=== PATIENT | female | born 1960 | race Caucasian/White ===

== ENCOUNTER 2024-05-27 11:48 | Emergency (ER) | payer MEDICARE, SELFPAY ==
[2024-05-27 11:49] VITALS: BP 130/83; PULSE 80; RESP 16; TEMP 36.6; O2SAT 95; BMI 29.3
[2024-05-27 13:05] LABS: Absolute Lymphocyte Count 2.31 X10^3/uL (0.83-4.51); Absolute Neutrophil Count 6.8 X10^3/uL (2.0-7.7); Basophil# 0.02 X10^3/uL; Basophil% 0.2 % (0-1); Eosinophil# 0.01 X10^3/uL; Eosinophils% 0.1 % (0-5); Hematocrit 48.1 % (37-47); Hemoglobin 17.5 g/dL (12.0-15.0); Lymphocyte # 2.31 X10^3/ul (0.83-4.51); Lymphocyte % 24.2 % (19-41); Mean Corp Hgb Conc 36.4 g/dL (32-36); Mean Corpuscular Hgb 32.1 pg (27.0-32.0); Mean Corpuscular Volume 88.3 fL (81-99); Monocyte# 0.39 X10^3/uL; Monocyte% 4.1 % (0-10); NRBC Flagged by Analyzer 0 % (0-5); Neutrophil # 6.79 X10^3/uL (2.7-7.7); Platelet Count 274 K/mm3 (150-450); RBC Distribution Width CV 13.9 % (11.6-14.6); RBC Distribution Width SD 44.4 fl (35.1-43.9); Red Blood Count 5.45 M/mm3 (4.2-5.4); White Blood Count 9.6 K/mm3 (4.4-11.0)
[2024-05-27 13:16] LABS: Color, Urine Yellow (Yellow); Glucose, Dipstick Normal (Normal); Ketone-Dipstick 50 mg/dl (Negative); Leukocyte Esterase-Dipstick 100 /ul (Negative); Nitrite-Dipstick Negative (Negative); Occult Blood-Urine 50 /ul (Negative); Protein-Dipstick 30 mg/dl (Negative); Urine Clarity Cloudy (Clear); Urine Urobilinogen 1 mg/dl (Normal)
--- NOTE | 2024-05-27 13:22 | EX.ED.DYSGE1 ---
HPI History of Present Illness Chief Complaint: Nausea/Vomiting Informant: patient Narrative Narrative: Patient is 63-year-old female with a history of hypertension, stroke of brain aneurysm presenting with nausea vomiting and diarrhea. She came down with GI symptoms 3 days ago (Monday night into Monday morning). She had vomiting and diarrhea. She also notes that time she was having frequent urination. She continued have vomiting throughout the weekend and continue to vomit this morning. Has not been able to eat much but has been able to keep down water. Denies any abdominal pain except for discomfort associate with vomiting. Denies any dysuria. Notes her urine has been darker than normal. On Monday night when it for started she was having sweats and cold chills and thought she had a fever. Denies any URI symptoms. Has not been around her grandchildren but there has been a GI bug going around there. I was concerned about dehydration and came in. Denies any lightheadedness. PFSH PFS Medical History Back problem Asthma Arthritis Home Medications ?Medication ?Instructions ?Recorded ?Last Taken ?Type amlodipine 10 mg tablet 10 mg PO QDAY 05/03/24 Unknown History estradiol 0.01% (0.1 mg/gram) vaginal 05/03/24 Unknown History vaginal cream fluvoxamine 25 mg tablet 25 mg PO QHS 05/03/24 Unknown History lisinopril 40 mg tablet 40 mg PO QHS 05/03/24 Unknown History nystatin 100,000 unit/gram topical topical BID 05/03/24 Unknown History cream metoclopramide HCl 10 mg tablet 10 mg PO Q6H PRN nausea and 05/27/24 Unknown Rx (Reglan) vomiting #10 tabs nitrofurantoin 100 mg PO Q12 #10 CAPSULES 05/27/24 Unknown Rx monohydrate/macrocrystals 100 mg capsule Allergy/AdvReac Type Severity Reaction Status Date / Time latex Allergy Mild Itching Verified 05/27/24 11:52 Social History Smoking Status: Unknown if ever smoked ROS ROS ED Constitutional Constitutional ED: Reports chills, fever(s) and sweats Cardiovascular Cardiovascular: Denies chest pain Respiratory/Chest Respiratory/Chest: Denies cough or dyspnea Gastrointestinal Gastrointestinal: Reports abdominal pain, diarrhea, nausea and vomiting; Denies melena Genitourinary Genitourinary ED: Reports dysuria and other Details: Dark urine, decreased urination ; Denies urinary frequency Musculoskeletal Musculoskeletal: Denies arthralgias or myalgias Integumentary Denies rash Neurologic Neurologic: Reports weakness Hematologic/Lymphatic Hematologic/Lymphatic: Denies easy bleeding or easy bruising EXAM Physical Exam Const Vital Signs: 05/27/24 11:49 05/27/24 13:44 05/27/24 14:57 Temperature 97.8 F Temperature Source Temporal Pulse Rate 80 75 78 Respiratory Rate 16 19 H 18 Blood Pressure 130/83 H 137/82 H 132/63 H Blood Pressure Mean 98 100 86 Pulse Ox 95 99 98 Oxygen Delivery Method Room Air Room Air Room Air 05/27/24 16:59 Temperature Temperature Source Pulse Rate 77 Respiratory Rate 18 Blood Pressure 135/78 H Blood Pressure Mean 97 Pulse Ox 98 Oxygen Delivery Method Room Air Positive well nourished and well developed General Appearance ED: well developed and NAD HEENT Reports moist mucous membranes Eyes PERRL Neck supple Chest Wall inspection of chest normal and palpation of chest normal Resp normal respiratory effort and clear to auscultation bilaterally Cardio regular rate, regular rhythm and no murmurs GI normal to inspection, nondistended, normoactive bowel sounds, non-tender and non-distended Auscultation: normoactive bowel sounds Extremity normal to inspection General Extremety ED: Negative for edema General Extremity: Negative for edema Neuro oriented x3 Sensorium / Orientation: alert Motor Exam: Negative for general weakness Psych mental status grossly normal Skin no rashes or lesions noted and no wounds General Skin Exam: Negative for jaundice MDM MDM MDM Narrative Medical decision making narrative: Patient evaluated for 3 days of vomiting. Initially also had subjective fevers, chills and diarrhea. Has Zofran at home with no relief. Differential includes viral syndrome, gastroenteritis, dehydration, electrolyte abnormality, JANIE and urinary tract infection. Patient currently does not have any abdominal pain is benign physical exam I do not think she requires emergent GI imaging. Patient has some improvement with IV Zofran and IV fluids. Lab work shows mild hemoconcentration with hemoglobin 17.5. Normal white blood cell count. Normal platelets. CMP is consistent with some dehydration with a bicarb of 16.7 and mildly elevated anion gap. Is given a second liter of IV fluids. Urinalysis does show 50 ketones, 10-25 white blood cells with some contamination as well as 4+ bacteria. On further discussion patient does report she has had some mild dysuria. Will send for culture and treat with antibiotics (Macrobid). Patient given IV Reglan. Given p.o. challenge the emergency room she does well with. Will be discharged home with a prescription for Reglan as well as PPI therapy given her acute GI illness. Counseled on pushing fluids. Given return precautions. Discharged home in stable condition. Lab Data Attestation: I reviewed the patient's lab results. Labs: Laboratory Results - last 24 hr 05/27/24 05/27/24 12:57 13:07 WBC 9.6 RBC 5.45 H Hgb 17.5 H Hct 48.1 H MCV 88.3 MCH 32.1 H MCHC 36.4 H RDW Std Deviation 44.4 H RDW Coeff of Herminio 13.9 Plt Count 274 MPV 11.0 Immature Gran % (Auto) 0.400 Neut % (Auto) 71.0 H Lymph % (Auto) 24.2 [place] % (Auto) 4.1 Eos % (Auto) 0.1 Baso % (Auto) 0.2 Absolute Neuts (auto) 6.8 Absolute Lymphs (auto) 2.31 Nucleated RBC % 0 Sodium 136 Potassium 3.6 Chloride 101 Carbon Dioxide 16.7 L Anion Gap 18 H BUN 24 H Creatinine 0.81 Estim Creat Clear Calc 73.51 Est GFR (MDRD) Non-Af 82 BUN/Creatinine Ratio 29.2 H Glucose 127 H Calcium 10.7 Total Bilirubin 1.41 H AST 25 ALT 35 Alkaline Phosphatase 75 Total Protein 8.4 Albumin 5.1 H Globulin 3.4 Albumin/Globulin Ratio 1.5 Lipase 35 Urine Color Yellow Urine Clarity Cloudy Urine pH 6.0 Ur Specific [place] 1.020 Urine Protein 30 H Urine Glucose (UA) Normal Urine Ketones 50 H Urine Occult Blood 50 H Urine Nitrite Negative Urine Bilirubin 1 H Urine Urobilinogen 1 H Ur Leukocyte Esterase 100 H Urine RBC 5-10 SEEN Urine WBC 10-25 SEEN Ur Squamous Epith Cells 10-25 SEEN Uric Acid Crystals 2+ Amorphous Sediment 1+ URATE Urine Bacteria 4+ Urine Mucus 1+ Discharge Plan Triage Chief Complaint: Nausea/Vomiting ED Provider: Kallie Ghosh Dx/Rx/DC Orders Clinical Impression: Acute dehydration, Nausea & vomiting, UTI (urinary tract infection) Instructions: Urinary Tract Infections in Women, Dehydration, ED Vomit Diarrhea Nons[place] Adult Prescriptions: New metoclopramide HCl [Reglan] 10 mg tablet 10 mg PO Q6H PRN (Reason: nausea and vomiting) Qty: 10 0RF nitrofurantoin monohyd/m-cryst 100 mg capsule 100 mg PO Q12 Qty: 10 0RF No Action estradiol 0.01 % (0.1 mg/gram) cream vaginal fluvoxamine 25 mg tablet 25 mg PO QHS nystatin 100,000 unit/gram cream topical BID lisinopril 40 mg tablet 40 mg PO QHS amlodipine 10 mg tablet 10 mg PO QDAY Primary Care Provider: January Roblero NP Referrals: January Roblero NP, TELECINE OPERATOR-C [Primary Care Provider] - Activity Restrictions/Additional Instructions: Continue to push fluids and small frequent sips. I would recommend taking an [id number] antacid such as Pepcid or Nexium once to twice a day until your stomach is settled and is feeling better. Your blood work showed signs of dehydration and you are given 2 L of IV fluid in the emergency room. Your kidney function was normal and no significant electrolyte abnormalities. Your urinalysis was concerning for urinary tract infection. We did send off for culture and started on antibiotics. If your culture requires that we change antibiotics we will contact you in about 48 hours. Print Language: German Disposition Disposition: Home, Self Care
[2024-05-27 13:36] LABS: Urine Bilirubin Dipstick 1 mg/dL (Negative)
[2024-05-27] MEDS: 0.9% Normal Saline (1000mL) 1,000 ML 999 ML IV ×2 (13:43→15:26)
[2024-05-27] MEDS: Ondansetron 4 MG/2 ML Vial IV (13:43)
[2024-05-27 13:44] VITALS: BP 137/82; PULSE 75; RESP 19; O2SAT 99
[2024-05-27 13:55] LABS: White Blood Cells 10-25 SEEN /hpf (0-5)
[2024-05-27 13:56] LABS: Red Blood Cells-Urine 5-10 SEEN /hpf (0-5)
[2024-05-27 13:57] LABS: Bacteria 4+ /hpf (None Seen); Squamous Epithelial Cells - UA 10-25 SEEN /hpf (5-10)
[2024-05-27 13:59] LABS: Uric Acid Crystals Ur 2+ /hpf (<or=1+)
[2024-05-27 14:01] LABS: Amorphous Sediment 1+ URATE; Mucous, Urine 1+ /hpf (<or=2+)
[2024-05-27 14:03] LABS: ALB/GLOB Ratio 1.5 RATIO (0.9-2.4); AST(SGOT) 25 U/L (<=31); Alanine Aminotransfer ALT/SGPT 35 U/L (<=34); Albumin, Serum 5.1 g/dL (3.4-4.8); Alkaline Phosphatase 75 U/L (35-104); Anion Gap 18 (5-15); BUN 24 mg/dL (4-19); BUN/Creat Ratio 29.2 RATIO (10-20); Calcium,Total 10.7 mg/dL (7.6-11.0); Carbon Dioxide 16.7 mmol/L (21.0-32.0); Chloride 101 mmol/L (98-108); Creatinine, Serum 0.81 mg/dL (0.70-1.20); EST Glomerular Filtration Rate 82 (>60); Estimated Creatinine Clearance 73.51 ml/min (50-250); Globulin 3.4 g/dL (2.2-4.2); Glucose 127 mg/dL (70-99); Lipase 35 U/L (13-75); Potassium 3.6 mmol/L (3.3-5.1); Protein, Total 8.4 g/dL (5.9-8.4); Sodium Level 136 mmol/L (133-145); Total Bilirubin 1.41 mg/dL (0.00-1.30)
[2024-05-27 14:57] VITALS: BP 132/63; PULSE 78; RESP 18; O2SAT 98
[2024-05-27] MEDS: Metoclopramide 10 MG/2 ML Vial 5 MG IV (15:26)
[2024-05-27 16:59] VITALS: BP 135/78; PULSE 77; RESP 18; O2SAT 98
[2024-05-27 17:07] VITALS: BP 140/80; PULSE 78; RESP 18; TEMP 36.8; O2SAT 98
== END 2024-05-27 17:43 | disposition home or self-care (01) ==
PROVIDERS: Emergency Provider Emergency Medicine; PCP Nurse Practitioner Family; Visit Provider Emergency Medicine
DX: E86.0 Dehydration (principal); N39.0 Urinary tract infection, site not specified; R11.2 Nausea with vomiting, unspecified; R19.7 Diarrhea, unspecified; I10 Essential (primary) hypertension; Z86.73 Personal history of transient ischemic attack (TIA), and cerebral infarction without residual deficits; Z79.899 Other long term (current) drug therapy
CPT/HCPCS: 80053; 81001; 83690; 85025; 87086; 87088; 96361; 96374; 96375; 99283; A4216; J2405

== ENCOUNTER 2025-03-06 18:16 | Emergency (ER) | payer MEDICARE, SELFPAY ==
[2025-03-06 18:17] VITALS: BP 121/69; PULSE 85; RESP 18; TEMP 35.9; O2SAT 96
--- NOTE | 2025-03-06 18:34 | RAD_ITS ---
PROCEDURE: HIP, UNI W/ PELVIS 2-3 VIEWS 03/06/2025 REASON FOR EXAM: ATRAUMATIC RIGHT HIP PAIN TECHNIQUE: Procedure Code: RADHP Modality: DX Procedure: HIP, UNI W/ PELVIS 2-3 VIEWS Laterality: Right COMPARISON: None FINDINGS: Bones: No acute fracture. Joints: Normal alignment. Mild degenerative changes. Soft tissues: Soft tissues are unremarkable. RAD/HIP, UNI W/ Pelvis 2-3 Views IMPRESSION: No acute osseous abnormality. Mild osteoarthritis in the right hip. Reading Location: [facility]
--- NOTE | 2025-03-06 18:40 | ED.VIS.LOWEX ---
HPI History of Present Illness HPI Narrative: 64-year-old female history of hypertension, craniotomy for an aneurysm and prior stroke. Complaining of atraumatic right hip pain that began yesterday. Denies any fall or trauma. No fever or chills. No redness. She has never had a surgery to this hip before. It is more painful to walk on. Chief Complaint: Lower Extremity Injury Informant: patient Occured/Mechanism Mechanism/Context: No injury and No blunt trauma Onset/Context/Timing Onset: Today and Yesterday Context: Gradual Onset Timing: Continuous Quality of Pain: Sharp Current Severity: Moderate Maximum Severity: Moderate Associated Symptoms Associated Symptoms: Negative for Parasthesia, Weakness or Loss of Funtion Narrative Narrative: 64-year-old female complains of atraumatic right hip pain since yesterday. No fever or redness. No chills. No fall or trauma. No prior surgery. Prior similar symptoms: No Recent Illness/Hospitalization: No PFSH PFSH Medical History Back problem Asthma Arthritis Home Medications ?Medication ?Instructions ?Recorded ?Last Taken ?Type amlodipine 10 mg tablet 10 mg PO QDAY 05/03/24 Unknown History estradiol 0.01% (0.1 mg/gram) vaginal 05/03/24 Unknown History vaginal cream fluvoxamine 25 mg tablet 25 mg PO QHS 05/03/24 Unknown History lisinopril 40 mg tablet 40 mg PO QHS 05/03/24 Unknown History nystatin 100,000 unit/gram topical topical BID 05/03/24 Unknown History cream metoclopramide HCl 10 mg tablet 10 mg PO Q6H PRN nausea and 05/27/24 Unknown Rx (Reglan) vomiting #10 tabs nitrofurantoin 100 mg PO Q12 #10 CAPSULES 05/27/24 Unknown Rx monohydrate/macrocrystals 100 mg capsule oxycodone-acetaminophen 5 mg-325 1 tab PO Q6H PRN pain 3 days #10 03/06/25 Unknown Rx mg tablet (Percocet) tabs prednisone 20 mg tablet 40 mg (2 x 20 mg) PO DAILY #14 tabs 03/06/25 Unknown Rx Allergy/AdvReac Type Severity Reaction Status Date / Time latex Allergy Mild Itching Verified 03/06/25 18:16 Social History Smoking Status: Unknown if ever smoked ROS ROS ED ROS Narrative Denies recent illness. Constitutional Constitutional ED: Denies chills or fever(s) Eyes Eyes: Denies blurry vision ENT ENT ED: Denies ear pain Cardiovascular Cardiovascular: Denies chest pain Respiratory/Chest Respiratory/Chest: Denies cough or dyspnea Gastrointestinal Gastrointestinal: Denies abdominal pain Genitourinary Genitourinary ED: Denies dysuria or hematuria Musculoskeletal Musculoskeletal: Denies arthralgias, back pain, myalgias or neck pain Integumentary Denies abscess or Abrasions Neurologic Neurologic: Denies headache(s) Psychiatric Psychiatric: Denies anxiety Endocrine Endocrinology: Denies polydipsia Hematologic/Lymphatic Hematologic/Lymphatic: Denies easy bleeding, easy bruising or lymphadenopathy Allergic/Immunologic Allergic/Immunologic ED: Denies mouth swelling, tongue swelling or urticaria EXAM Physical Exam Narrative Exam Narrative: Well-appearing 64-year-old female. Sitting upright in bed. Vital signs are stable and afebrile. She does not look septic or toxic. She is in no acute distress. H EENT exam pupils round react light. Moist mucous membranes. Neck nontender no lymphadenopathy no meningismus. Lungs clear to auscultation bilaterally. Heart regular rhythm no murmur. Chest wall and ribs are nontender. Abdomen soft nontender. No peritoneal signs. Moving all 4 extremities. No edema. Right hip tender to palpation anteriorly. No redness. No warmth. No swelling. No signs of trauma. She is able to do flexion extension. She will flex extend her right knee and right ankle. Dorsi plantarflexion intact. There is no edema or cords in either lower extremity. There is no signs of a septic joint. Back is nontender right SI joints nontender. Neurologically she is awake alert. Answering questions following commands. Const Vital Signs: 03/06/25 18:17 Temperature 96.6 F L Temperature Source Temporal Pulse Rate 85 Respiratory Rate 18 Blood Pressure 121/69 H Blood Pressure Mean 86 Pulse Ox 96 Oxygen Delivery Method Room Air MDM MDM MDM Narrative Medical decision making narrative: 64-year-old female complaining of atraumatic right hip pain. Clinically does not look like a septic joint. X-ray will be obtained this may be from arthritis versus other etiologies. There is noes current signs of infection. Skin appears normal on exam. Repeat exam around 7:25 PM. No change. Again there is no significant signs of infection of her right hip. There is no swelling. There is inguinal Renae in both groins. But no signs of septic joint. She and I went over x-rays consistent with joint space narrowing. Some arthritis. There is no fracture or dislocation. There is no significant signs of significant fluid in the joint. She can be discharged to home on Percocet for pain. Prednisone. And outpatient follow-up. She knows if she develops redness or fever to return. She is comfortable to plan History & Record Review Discussion w/independent historian: Patient Additional record(s) reviewed:: Prior outpatient record, Prior ED visit and Prior labs Discharge Plan Triage Chief Complaint: Lower Extremity Injury ED Provider: Gal Siddiqi Dx/Rx/DC Orders Clinical Impression: Acute hip pain, Osteoarthritis Instructions: Osteoarthritis (OA) Prescriptions: New oxycodone-acetaminophen [Percocet] 5-325 mg tablet 1 tab PO Q6H PRN (Reason: pain) 3 Days Qty: 10 0RF prednisone 20 mg tablet 40 mg PO DAILY Qty: 14 0RF No Action estradiol 0.01 % (0.1 mg/gram) cream vaginal fluvoxamine 25 mg tablet 25 mg PO QHS nystatin 100,000 unit/gram cream topical BID lisinopril 40 mg tablet 40 mg PO QHS amlodipine 10 mg tablet 10 mg PO QDAY metoclopramide HCl [Reglan] 10 mg tablet 10 mg PO Q6H PRN (Reason: nausea and vomiting) Qty: 10 0RF nitrofurantoin monohyd/m-cryst 100 mg capsule 100 mg PO Q12 Qty: 10 0RF Primary Care Provider: January Roblero NP Referrals: Luke Chan DO [Med Staff - Active Staff, Orthopedics] - As soon as possible January Roblero NP, CRYPTOGRAPHY TEACHER-C [Primary Care Provider, Family Practice] - 3-5 Days Activity Restrictions/Additional Instructions: Ice to your hip. Percocet for pain. Plenty of fluids. Stool softener as needed. Fruits and vegetables help prevent constipation. Fiber. If you develop a fever or the hip gets red or swollen with the pains getting worse return to the emergency department. Right now it looks like the pain is being caused by arthritis. Prednisone daily to help decrease the inflammation. 40 mg a day. Start tomorrow. Follow-up with the orthopedic surgeon for further evaluation of your hip. As Dr. Blair Chan. Print Language: Latvian Disposition Disposition: Home, Self Care
--- OUTSIDE RECORDS SUMMARY | 2025-03-06 18:47 | XMS RPT_ITS | CCD ---
Author Organization [facility] Care Team Providers Care Marketing Intern Name Role Phone Michael CHANEY, Yessenia Primary Care Provider Lukas CHANEY, Amairani Unavailable Michael CHANEY, Yessenia Unavailable Jolynn BECERRA, Luz Marina Unavailable Adilene Lino MD Unavailable Go Wolf RN Unavailable Michael CHANEY, Yessenia Primary Care Provider Amairani Quintero MD Unavailable Michael CHANEY, Yessenia Unavailable Luz Marina Neil PA-C Unavailable Adilene Lino MD Unavailable Michael CHANEY, Yessenia Primary Care Provider Michael CHANEY, Yessenia Unavailable Michael CHANEY, Yessenia Primary Care Provider Amairani Quintero MD Unavailable Michael CHANEY, Yessenia Unavailable Jolynn BEECRRA, Luz Marina Unavailable Adilene Lino MD Unavailable PROVIDER, UNKNOWN Referring Unavailable DISTBRENTON, YESSENIA Primary Care Unavailable DISTEL, YESSENIA Primary Care Unavailable PATRICA LENNON Referring Unavailab le PROVIDER, UNKNOWN Referring Unavailable DISTEL, YESSENIA Primary Care Unavailable ANIYAH IRIZARRY Attending Unavailabl e DISTEL, YESSNEIA Primary Care Unavailable ANIYAH IRIZARRY Attending Unavailabl e DISTEL, YESSENIA Primary Care Unavailable ANIYAH IRIZARRY Attending Unavailabl e DISTEL, YESSENIA Primary Care Unavailable DISTEL, YESSENIA Primary Care Unavailable PATRICA LENNON Referring Unavailab ANIYAH Green Attending Unavailabl e DISTEL, YESSENIA Primary Care Unavailable GERMÁN NERISSA Referring Unavailable DISTEL, YESSENIA Primary Care Unavailable DISTEL, YESSENIA Primary Care Unavailable DISTEL, YESSENIA Referring Unavailable DEEPA LEES Attending Unavailabl e DISTEL, YESSENIA Primary Care Unavailable DISTEL, YESSENIA Referring Unavailable Distbrenton CHANEY, Yessenia Primary Care Provider [phone] Martir BARLOWC, Luz Marina Lee Unavailable [phone] Osbaldo PAINT BOOTH OPERATOR, Yohan K Primary Care Provider MARYAM SALMERON Attending Unavailable OSBALDO, YOHAN K Primary Care Unavailable Osbaldo AMBULANCE OPERATIONS SUPERVISOR, Yohan Primary Care Unavailable Kallie Ghosh Attending Unavailable Osbaldo AMBULANCE OPERATIONS SUPERVISOR, Yohan Referring Unavailable Osbaldo AMBULANCE OPERATIONS SUPERVISOR, Yohan Primary Care Unavailable José Miguel Bee Attending Unavailable Osbaldo AMBULANCE OPERATIONS SUPERVISOR-C, Yohan Primary Care Provider [phone] Osbaldo AMBULANCE OPERATIONS SUPERVISOR-C, Yohan Referring Provider Dr. José Miguel Bee MD Attending Provider [phone] Dr. Kallie Ghosh DO Emergency Provider ЮЛИЯ ROBLEROA K Primary Care Unavailable DISTEL, YESSENIA Referring Unavailable DISTEL, YESSENIA Primary Care Unavailable DISTEL, YESSENIA Attending Unavailable DISTEL, YESSENIA Primary Care Unavailable OSBALDO, YOHAN Attending Unavailable OSBALDO, YOHAN Consulting Unavailable OSBALDO, YOHAN Primary Care Unavailable OSBALDO, YOHAN Admitting Unavailable PROVIDER, UNKNOWN Consulting Unavailable OSBALDO, YOHAN Primary Care Unavailable OSBALDO, YOHAN Admitting Unavailable OSBALDO, YOHAN Attending Unavailable OSBALDO, YOHAN Primary Care Unavailable OSBALDO, YOHAN Admitting Unavailable OSBALDO, YOHAN Attending Unavailable OSBALDO, YOHAN Consulting Unavailable STEVEN MATOS Attending Unavailable STEVEN MATOS Primary Care Unavailable CARLO, STEVEN L Admitting Unavailable PROVIDER, UNKNOWN Consulting Unavailable Allergies Allergy Classification Reported Allergen(s) Allergy Type Date of Onset Reaction(s) Facility (20 sources) Pollen; Translations: [POLLEN EXTRACTS] Drug Allergy 3 Other: See Comments [facility] (1 source) Latex Drug allergy (disorder) 5 [facility] (1 source) Latex Allergy to substance 5 Itching [facility] Medications Current Medications Medication Drug Class(es) Dates Sig (Normalized) Sig (Original) acetaminophen 325 mg oral tablet (20 sources) Start: 05-18-2021 take 2 tablets by mouth every four hours as needed acetaminophen (TYLENOL) 325 mg tablet Take 2 tablets by mouth every 4 hours as needed for pain. 05/18/2021 Active Comment on above: Take 2 tablets by mo ut every 4 hours as needed for pain. [id number] 200 actuat albuterol 0.09 mg/actuat metered dose inhaler (13 sources) beta2-Adrenergic Agonist Start: 01-05-2024 take 2 puff(s) by inhalation every four hours as needed for wheezing albuterol HFA (PROVENTIL HFA, VENTOLIN HFA) 90 mcg/actuation inhaler Indications: Bronchospasm Inhale 2 Puffs as instructed every 4 hours as needed for wheezing/shortness of breath. 1 Each 5 01/05/2024 Active amLODIPine 10 mg oral tablet (20 sources) Dihydropyridine Calcium Channel Naldo Start: 06-28-2022 End: 07-10-2024 take 1 tablet by mouth once daily Amlodipine 10 mg tablet Active 10 mg PO daily May 03, 2024 1:00am Start: 05-18-2021 End: 05-18-2022 take 1 tablet by mouth once daily amLODIPine (NORVASC) 10 mg tablet Indications: Hypertension, essential Take 1 tablet by mouth once daily. 90 tablet 3 05/18/2021 Active Comment on above: Take 1 tablet by katy th once daily. ascorbic acid 1000 mg oral tablet (20 sources) Vitamin C Start: 2 take 1 tablet by mouth once daily as needed Ascorbic Acid 1,000 mg tablet Take 1,000 mg by mouth once daily. PRN 05/18/2021 Active Comment on above: [The details of the medication are not available because there are pending changes by a home health clinician.] Take 1,000 mg by katy th once daily. PRN atorvastatin 40 mg oral tablet (20 sources) HMG-CoA Reductase Inhibitor Start: 3 End: 5 take 1 tablet by mouth once daily atorvastatin (LIPITOR) 40 mg tablet Indications: Hyperlipidemia associated with type 2 diabetes mellitus (HCC) (HCC) , Lacunar stroke (HCC) Take 1 tablet by mouth once daily. 90 tablet 3 12/04/2023 10:24 AM EDT 07/11/2023 07/10/2024 Active Start: 05-18-2021 End: 05-18-2022 take 1 tablet by mouth once daily atorvastatin (LIPITOR) 80 mg tablet Indications: Lacunar stroke (HCC) , Hyperlipidemia associated with type 2 diabetes mellitus (HCC) Take 1 tablet by mouth once daily. 90 tablet 3 05/18/2021 05/18/2022 Active Start: 05-18-2021 End: 05-18-2022 atorvastatin (LIPITOR) 80 mg tablet Indications: Lacunar stroke (HCC) , Hyperlipidemia associated with type 2 diabetes mellitus (HCC) [The details of the medication are not available because there are pending changes by a home health clinician.] 90 tablet 3 05/18/2021 05/18/2022 Active Comment on above: Take 1 tablet by katy th once daily. [The details of the medication are not available because there are pending changes by a home health clinician.] carvedilol 6.25 mg oral tablet (20 sources) alpha-Adrenergic Naldo, beta-Adrenergic Naldo Start: End: take 1 tablet by mouth twice daily at mealtime carvedilol (COREG) 6.25 mg tablet Indications: Hypertension, essential Take 1 tablet by mouth twice daily with meals. 180 tablet 3 12/04/2023 10:24 AM EDT 07/11/2023 07/10/2024 Active Start: 05-18-2021 End: 05-18-2022 take 1 tablet by mouth twice daily at mealtime carvedilol (COREG) 6.25 mg tablet Indications: Hypertension, essential Take 1 tablet by mouth twice daily with meals. 180 tablet 3 05/18/2021 Active Comment on above: Take 1 tablet by katy th twice daily with meals. cholecalciferol, vitamin D3, (VITAMIN D3 ORAL) (20 sources) take 2000 [IU] by mouth once daily cholecalciferol, vitamin D3, (VITAMIN D3 ORAL) Take by mouth. 2000 international unit(s) daily Active take 2000 [IU] by mouth once roger ly cholecalciferol, vitamin D3, (VITAMIN D3 ORAL) Take by mouth. 2000 international unit(s) daily 0 Active Comment on above: Take by mouth. 2000 international unit(s) daily CPAP/BIPAP/OTHER (20 sources) Start: 05-05-2022 End: 09-19-2049 CPAP/BIPAP/OTHER Type .CPAPSettings into a note to see current settings/supplies/DME information. 1 Each 05/05/2022 09/19/2049 Active Start: 05-05-2022 End: 09-19-2049 CPAP/BIPAP/OTHER Type .CPAPS ettings into a note to see current settings/supplies/DME information. 1 Each 0 05/05/2022 09/19/2049 Active Comment on above: Type .CPAPSettings i nto a note to see current settings/supplies/DME information. doxycycline monohydrate 100 mg oral capsule (2 sources) Tetracycline-class Drug Start: End: take 1 capsule by mouth twice daily doxycycline monohydrate (MONODOX) 100 mg capsule Take 1 capsule by mouth twice daily for 7 days. 14 capsule 0 06/20/2022 06/27/2022 Active Comment on above: Take 1 capsule by [facility] twice daily for 7 days. estradiol 0.1 mg/ml vaginal cream (5 sources) Estrogen Start: 025 Estradiol 0.01 % (0.1 mg/gram) cream Active VAGINAL May 03, 2024 1:00am Start: 05-02-2024 estradiol (EST RACE) 0.01 % (0.1 mg/gram) vaginal cream APPLY 2 GRAMS DAILY FOR 14 DAYS THEN 1-3 TIMES PER WEEK 05/02/2024 Active 120 actuat fluticasone propionate 0.115 mg/actuat / salmeterol 0.021 mg/actuat metered dose inhaler (11 sources) Corticosteroid, beta2-Adrenergic Agonist Start: 01-10-2024 End: 07-08-2024 take 2 puff(s) by inhalation twice daily fluticasone-salmeterol HFA (ADVAIR HFA) 115-21 mcg/actuation inhaler Indications: Bronchospasm Inhale 2 Puffs as instructed two times a day. 12 g 5 01/10/2024 07/08/2024 Active fluvoxaMINE maleate 25 mg oral tablet (5 sources) Serotonin Reuptake Inhibitor Start: 04-22-2024 take 1 tablet by mouth at bedtime Fluvoxamine 25 mg tablet Active 25 mg PO AT BEDTIME May 03, 2024 1:00am hydrALAZINE hydrochloride 50 mg oral tablet (20 sources) Arteriolar Vasodilator Start: 10-03-2022 End: 07-10-2024 take 1 tablet by mouth three times daily hydrALAZINE (APRESOLINE) 50 mg tablet Indications: Hypertension, essential Take 1 tablet by mouth three times daily. 270 tablet 3 12/04/2023 10:24 AM EDT 07/11/2023 07/10/2024 Active Start: 08-23-2021 End: 08-23-2022 take 1 tablet by mouth three times daily hydrALAZINE (APRESOLINE) 50 mg tablet Indications: Hypertension, essential Take 1 tablet by mouth three times daily. 270 tablet 3 08/23/2021 Active Start: 05-18-2021 take 1 tablet by katy th three times daily hydrALAZINE (APRESOLINE) 50 mg tablet Take 50 mg by mouth three times daily. 0 05/18/2021 Active Start: 10-22-2020 take 1 tablet by katy th every eight hours hydrALAZINE (APRESOLINE) 50 mg tablet Indications: Hypertension, essential Take 1 tablet by mouth every 8 hours. 270 tablet 1 10/22/2020 Active Comment on above: Take 1 tablet by katy th every 8 hours. Take 50 mg by mouth three times daily. Take 1 tablet by katy th three times daily. ketoconazole 20 mg/ml topical cream (20 sources) Azole Antifungal Start: 07-11-2023 ketoconazole (NIZORAL) 2 % cream Indications: Seborrheic dermatitis Apply 1 application to affected area once daily. 60 g 1 07/14/2023 3:08 PM EDT 07/11/2023 Active Start: 05-24-2023 End: 07-05-2023 ketoconazole (NIZORAL) 2 % c ream Indications: Seborrheic dermatitis Apply 1 application to affected area once daily. 30 g 2 05/24/2023 07/05/2023 Active Start: 12-09-2022 End: 01-20-2023 ketoconazole (NIZORAL) 2 % c ream Indications: Seborrheic dermatitis Apply 1 application to affected area once daily. 30 g 2 12/09/2022 01/20/2023 Active Start: 08-23-2021 End: 10-04-2021 ketoconazole (NIZORAL) 2 % c ream Indications: Seborrheic dermatitis Apply 1 application to affected area once daily. 30 g 2 08/23/2021 10/04/2021 Active Comment on above: Apply 1 application to affected area once daily. lisinopril 40 mg oral tablet (20 sources) Angiotensin Converting Enzyme Inhibitor Start: End: take 1 tablet by mouth at bedtime Lisinopril 40 mg tablet Active 40 mg PO AT BEDTIME May 03, 2024 1:00am Start: 05-18-2021 End: 05-18-2022 take 1 tablet by mouth once daily at bedtime lisinopril (ZESTRIL, PRINIVIL) 40 mg tablet Indications: Hypertension, essential Take 1 tablet by mouth daily at bedtime. 90 tablet 3 05/18/2021 Active Comment on above: Take 1 tablet by katy th daily at bedtime. LORazepam 0.5 mg oral tablet (4 sources) Benzodiazepine Start: 04-22-19 LORazepam (ATIVAN) 0.5 mg TAKE 1 (ONE) TABLET EVERY TWELVE HOURS NEEDED FOR SEVERE ANXIETY/PANIC ATTACK 04/22/2024 Active metFORMIN hydrochloride 500 mg oral tablet (20 sources) Biguanide Start: 06-29-19 End: 07-11-19 take 1 tablet by mouth twice daily at mealtime metFORMIN (GLUCOPHAGE) 500 mg tablet Indications: Controlled type 2 diabetes mellitus without complication, without long-term current use of insulin (HCC) Take 1 tablet by mouth twice daily with meals. 180 tablet 3 12/04/2023 10:24 AM EDT 07/11/2023 07/10/2024 Active Start: 05-18-2021 End: 05-18-2022 take 1 tablet by mouth twice daily at mealtime metFORMIN (GLUCOPHAGE) 500 mg tablet Indications: Controlled type 2 diabetes mellitus without complication, without long-term current use of insulin (HCC) Take 1 tablet by mouth twice daily with meals. 180 tablet 3 05/18/2021 Active Comment on above: Take 1 tablet by katy twice daily with meals. metoclopramide 10 mg oral tablet (1 source) Dopamine-2 Receptor Antagonist Start: take 1 tablet by mouth every six hours as needed for nausea and vomiting Metoclopramide Hcl (Reglan) 10 mg tablet Active 10 mg PO EVERY 6 HOURS as needed for nausea and vomiting May 27, 2024 12:00am nitrofurantoin, macrocrystals 25 mg / nitrofurantoin, monohydrate 75 mg oral capsule (1 source) Nitrofuran Antibacterial Start: take 1 capsule by mouth every twelve hours Nitrofurantoin Monohyd/M-Cryst 100 mg capsule Active 100 mg PO EVERY 12 HOURS May 27, 2024 12:00am nystatin [id number] unt/ml topical cream (18 sources) Polyene Antifungal Start: Nystatin 100,000 unit/gram cream Active TOPICAL TWICE A DAY May 03, 2024 1:00am Start: 12-04-2023 End: 02-01-2024 nystatin (MYCOSTATIN) cream Apply to affected area two times a day. 30 g 2 02/02/2024 Active ondansetron 4 mg oral tablet (20 sources) Serotonin-3 Receptor Antagonist Start: 12-19-2023 take 1 tablet by mouth every eight hours as needed ondansetron (ZOFRAN) 4 mg tablet Take 1 tablet by mouth every 8 hours as needed for nausea/vomiting. 20 tablet 12/19/2023 Active Start: 05-18-2021 End: 02-16-2022 take 1 tablet by mouth every eight hours as needed ondansetron orally disintegrating (ZOFRAN ODT) 4 mg disintegrating tablet Dissolve 1 tablet by mouth every 8 hours as needed for nausea/vomiting. 30 tablet 0 05/18/2021 02/16/2022 Discontinued Comment on above: Dissolve 1 tablet by mouth every 8 hours as needed for nausea/vomiting. ONETOUCH ULTRA2 METER (20 sources) Start: 06-14-2021 ONETOUCH ULTRA2 METER 06/14/2021 Active Start: 06-14-2021 ONETOUCH ULTRA 2 METER 50 ml oxacillin 40 mg/ml injection (12 sources) Penicillin-class Antibacterial Start: 05-18-2021 End: 06-26-2021 oxacillin (BACTOCILL) 2 gram/50 mL [The details of the medication are not available because there are pending changes by a home health clinician.] 0 05/18/2021 06/26/2021 Discontinued Start: 05-18-2021 inject 50 mL intrave nously every four hours oxacillin (BACTOCILL) 2 gram/50 mL Inject 50 mL intravenously every 4 hours. See COPAT 0 05/18/2021 Active Comment on above: Inject 50 mL intrave nously every 4 hours. See COPAT [The details of the medication are not available because there are pending changes by a home health clinician.] pantoprazole 40 mg delayed release oral tablet (13 sources) Proton Pump Inhibitor Start: 01-05-20 End: 07-04-19 take 1 tablet by mouth once daily pantoprazole DR (PROTONIX) 40 mg tablet Indications: Gastroesophageal reflux disease without esophagitis Take 1 tablet by mouth once daily. 30 minutes before eating. 90 tablet 1 01/05/2024 07/03/2024 Active perflutren lipid microspheres 1.3 mL in NaCl (PF) 0.9% 10 mL injection (DEFINITY) (20 sources) Start: 08-02-19 End: 10-31-19 perflutren lipid microspheres 1.3 mL in NaCl (PF) 0.9% 10 mL injection (DEFINITY) Start: 04-23-2022 End: 07-23-2023 perflutren lipid microsphere s 1.3 mL in NaCl (PF) 0.9% 10 mL injection (DEFINITY) sennosides, assisted 8.6 mg oral tablet (6 sources) Start: 05-18-2021 End: 06-17-2021 take 1 tablet by mouth every twelve hours as needed senna (SENOKOT) 8.6 mg tab Take 1 tablet by mouth twice daily as needed for constipation. 30 tablet 0 05/18/2021 06/17/2021 Discontinued (Discontinued by Patient) Comment on above: Take 1 tablet by katy twice daily as needed for constipation. 125 ml sodium chloride 9 mg/ml prefilled syringe (20 sources) Start: 04-23-2022 End: 10-31-2023 sodium chloride 0.9 % (flush) 10 mL (BD POSIFLUSH) Start: 05-18-2021 End: 03-22-2022 sodium chloride (NaCl) 0.9% injection solution Inject 10 mL intravenously as directed. Flush with 10ml before and after dose. Flush with 10ml before and 20ml after lab draws. flush unused lumen(s) daily with 10ml. Flush all lumens with 10ml before and after TPN infusions. 0 05/18/2021 03/22/2022 Discontinued (Course of therapy completed) Comment on above: Inject 10 mL intrave nously as directed. Flush with 10ml before and after dose. Flush with 10ml before and 20ml after lab draws. flush unused lumen(s) daily with 10ml. Flush all lumens with 10ml before and after TPN infusions. Vitamin B Complex (20 sources) take 1 tablet by mouth once daily vitamin B complex (B COMPLEX ORAL) Take 1 tablet by mouth once daily. Active take 1 tablet by mouth once lucas y vitamin B complex (B COMPLEX ORAL) Take 1 tablet by mouth once daily. 0 Active Comment on above: Take 1 tablet by katy th once daily. Completed/Discontinued Medications Medication Drug Class(es) Dates Sig (Normalized) Sig (Original) aspirin 81 mg chewable tablet (20 sources) Platelet Aggregation Inhibitor, Nonsteroidal Anti-inflammatory Drug Start: 07-31-2020 End: 02-16-2022 take 1 tablet by mouth once daily aspirin 81 mg chewable tablet Take 81 mg by mouth once daily. 0 05/18/2021 02/16/2022 Discontinued take 1 tablet by mouth once lucas y aspirin, enteric coated (ASPIRIN, ENTERIC COATED) 81 mg EC tablet Take 81 mg by mouth once daily. Active Comment on above: Take 1 tablet by katy th once daily. Take 81 mg by mouth once daily. Budesonide / formoterol (3 sources) Corticosteroid, beta2-Adrenergic Agonist Start: End: take 2 puff(s) by inhalation twice daily budesonide-formoterol (SYMBICORT) 160-4.5 mcg/actuation inhaler Indications: Bronchospasm Inhale 2 Puffs as instructed two times a day. 3 Each 1 01/05/2024 01/10/2024 Discontinued Start: 01-05-2024 End: 07-03-2024 take 2 puff(s) by inhalation twice daily budesonide-formoterol (SYMBICORT) 160-4.5 mcg/actuation inhaler Indications: Bronchospasm Inhale 2 Puffs as instructed two times a day. 3 Each 1 01/05/2024 07/03/2024 Active cetirizine hydrochloride 10 mg oral tablet (8 sources) Histamine-1 Receptor Antagonist End: 01-05-2024 take 1 tablet by mouth once daily cetirizine (ZYRTEC) 10 mg tablet Take 10 mg by mouth once daily. 01/05/2024 Discontinued citalopram 10 mg oral tablet (19 sources) Serotonin Reuptake Inhibitor Start: 08-17-2022 End: 07-11-2023 take 1 tablet by mouth once daily citalopram hydrobromide (CELEXA) 10 mg tablet Indications: Anxiety Take 1 tablet by mouth once daily. 30 tablet 1 08/17/2022 07/11/2023 Discontinued Comment on above: Take 1 tablet by katy once daily. gentamicin 0.001 mg/mg topical ointment (20 sources) Start: 06-20-2022 End: 07-12-2023 gentamicin 0.1 % ointment Apply to wound twice a day as directed 15 g 1 06/20/2022 07/12/2023 Discontinued Comment on above: Apply to wound twice a day as directed iv contrast (will be provided with radiology test) (20 sources) Start: 04-04-2022 End: 01-05-2024 inject 1 dose intravenously once iv contrast (will be provided with radiology test) Indications: Intracranial aneurysm , Postoperative infection, unspecified type, subsequent encounter , Acquired skull defect , Postoperative wound dehiscence, initial encounter MRI Brain Inject, intravenously, once for 1 dose.No IV access, insert saline lock prior to beginning of sedation, infusion, injection of imaging exam.Discontinue saline lock post exam. If Pt. has a central line or IVAD, may access for administration according to line specific nursing protocol.Once exam is complete flush line and de-access according to line specific nursing protocol in the MR contrast administration guidelines link 1 Each 04/04/2022 01/05/2024 Discontinued Start: 04-04-2022 inject 1 dose intravenously on ce iv contrast (will be provided with radiology test) Indications: Intracranial aneurysm , Postoperative infection, unspecified type, subsequent encounter , Acquired skull defect , Postoperative wound dehiscence, initial encounter MRI Brain Inject, intravenously, once for 1 dose.No IV access, insert saline lock prior to beginning of sedation, infusion, injection of imaging exam.Discontinue saline lock post exam. If Pt. has a central line or IVAD, may access for administration according to line specific nursing protocol.Once exam is complete flush line and de-access according to line specific nursing protocol in the MR contrast administration guidelines link 1 Each 04/04/2022 Active Start: 04-04-2022 inject 1 dose intravenously on ce iv contrast (will be provided with radiology test) Indications: Intracranial aneurysm , Postoperative infection, unspecified type, subsequent encounter , Acquired skull defect , Postoperative wound dehiscence, initial encounter MRI Brain Inject, intravenously, once for 1 dose.No IV access, insert saline lock prior to beginning of sedation, infusion, injection of imaging exam.Discontinue saline lock post exam. If Pt. has a central line or IVAD, may access for administration according to line specific nursing protocol.Once exam is complete flush line and de-access according to line specific nursing protocol in the MR contrast administration guidelines link 1 Each 0 04/04/2022 Active Comment on above: MRI Brain Inject, in travenously, once for 1 dose.No IV access, insert saline lock prior to beginning of sedation, infusion, injection of imaging exam.Discontinue saline lock post exam. If Pt. has a central line or IVAD, may access for administration according to line specific nursing protocol.Once exam is complete flush line and de-access according to line specific nursing protocol in the MR contrast administration guidelines link methocarbamol 750 mg oral tablet (20 sources) Muscle Relaxant Start: End: take 1 tablet by mouth every eight hours as needed methocarbamol (ROBAXIN) 750 mg tablet Take 1 tablet by mouth three times daily as needed for muscle spasm, pain with chewing. 30 tablet 0 05/18/2021 02/16/2022 Discontinued Comment on above: Take 1 tablet by katy th three times daily as needed for muscle spasm, pain with chewing. polyethylene glycol 3350 [id number] mg / potassium chloride 2970 mg / sodium bicarbonate 6740 mg / sodium chloride 5860 mg / sodium sulfate 35913 mg powder for oral solution (8 sources) Osmotic Laxative Start: 022 End: peg 3350-Electrolytes (GOLYTELY) 236-22.74-6.74 -5.86 gram suspension Indications: Screening for colon cancer Refer to printed prep instructions from your provider. 4000 mL 0 08/27/2021 03/22/2022 Discontinued (Course of therapy completed) Comment on above: Refer to printed pre p instructions from your provider. regadenoson 0.4 mg injection (LEXISCAN) (1 source) Start: End: regadenoson 0.4 mg injection (LEXISCAN) Problems Active Problems Problem Classification Problem Date Documented Da te Episodic/Chronic Abdominal pain (1 source) Abdominal pain; Translations: [Unspecified abdominal pain] 05-27-2024 Episodic Acute cerebrovascular disease (20 sources) Cerebrovascular accident; Translations: [Cerebral infarction, unspecified] Onset: 0 11-26-2019 Chronic Anxiety disorders (20 sources) Anxiety; Translations: [Anxiety disorder, unspecified] Onset: 7 07-21-2020 Chronic Cardiac and circulatory congenital anomalies (20 sources) 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; Translations: [Congenital subaortic stenosis] Onset: 3 10-19-2022 Chronic Chronic ulcer of skin (19 sources) Skin ulcer; Translations: [Non-pressure chronic ulcer of skin of other sites limited to breakdown of skin] Onset: 3 Chronic Diabetes mellitus with complications (20 sources) Hyperlipidemia; Translations: [Type 2 diabetes mellitus with other specified complication] Onset: 0 10-22-2020 Chronic Diabetes mellitus without complication (20 sources) Type 2 diabetes mellitus without complication; Translations: [Type 2 diabetes mellitus without complications] Onset: 0 05-12-2021 Chronic Disorders of lipid metabolism (5 sources) Mixed hyperlipidemia; Translations: [Mixed hyperlipidemia] Onset: 1 10-19-2022 Chronic Esophageal disorders (20 sources) Gastroesophageal reflux disease; Translations: [Gastro-esophageal reflux disease without esophagitis] 07-14-2020 Chronic Essential hypertension (20 sources) Essential hypertension; Translations: [Essential (primary) hypertension] Onset: 6 05-12-2021 Chronic Fluid and electrolyte disorders (1 source) Dehydration; Translations: [Dehydration] 05-27-2024 Episodic Nonspecific chest pain (3 sources) Precordial pain; Translations: [Precordial pain] Onset: 3 10-19-2022 Episodic Open wounds of head; neck; and trunk (8 sources) Open wound; Translations: [Wound drainage] Onset: 5 Episodic Other acquired deformities (3 sources) Acquired defect of skull; Translations: [Other acquired deformity of head] Episodic Other acquired deformities (1 source) Skull finding; Translations: [Other acquired deformity of head] 05-07-2024 Episodic Other and ill-defined cerebrovascular disease (20 sources) Ataxia; 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] Onset: 0 11-26-2019 Chronic Other and ill-defined cerebrovascular disease (20 sources) Intracranial aneurysm; Translations: [Cerebral aneurysm, nonruptured] Onset: 0 07-21-2020 Chronic Other and ill-defined cerebrovascular disease (3 sources) Cerebral arterial aneurysm; Translations: [Cerebral aneurysm, nonruptured] Chronic Other and ill-defined cerebrovascular disease (1 source) Aneurysm of anterior cerebral artery; Translations: [Cerebral aneurysm, nonruptured] Chronic Other and ill-defined cerebrovascular disease (2 sources) Cerebral aneurysm, nonruptured; Translations: [Intracranial aneurysm] Onset: 1 Chronic Other gastrointestinal disorders (20 sources) Irritable bowel syndrome with diarrhea; Translations: [Irritable bowel syndrome with diarrhea] 07-14-2020 Chronic Other lower respiratory disease (6 sources) Dyspnea on exertion; Translations: [Other forms of dyspnea] Episodic Other lower respiratory disease (1 source) Other forms of dyspnea; Translations: [GONCALVES (dyspnea on exertion)] Onset: 3 Episodic Other nutritional; endocrine; and metabolic disorders (20 sources) Obese class II; Translations: [Obesity, unspecified] Onset: 0 05-12-2021 Chronic Other skin disorders (2 sources) Eruption; Translations: [Rash and other nonspecific skin eruption] 12-04-2023 Episodic Other upper respiratory disease (2 sources) Bronchospasm; Translations: [Acute bronchospasm] 01-05-2024 Episodic Residual codes; unclassified (20 sources) Obstructive sleep apnea syndrome; Translations: [Obstructive sleep apnea (adult) (pediatric)] 05-12-2021 Chronic Residual codes; unclassified (1 source) Obstructive sleep apnea (adult) (pediatric); Translations: [FABIOLA (obstructive sleep apnea)] Onset: 2 Chronic Residual codes; unclassified (20 sources) History of craniotomy; Translations: [Other specified postprocedural states] Onset: 1 12-28-2020 Episodic Residual codes; unclassified (1 source) History of cardiovascular surgery; Translations: [Other specified postprocedural states] Episodic Spondylosis; intervertebral disc disorders; other back problems (20 sources) Backache; Translations: [Dorsalgia, unspecified] 07-14-2020 Episodic Unclassified (1 source) Wound Check Onset: 3 Unclassified (1 source) Wound drainage; Translations: [Wound drainage] Onset: 3 Unclassified (1 source) S01.00XA - Unspecified open wound of scalp, initial encounter Urinary tract infections (1 source) Urinary tract infectious disease; Translations: [Urinary tract infection, site not specified] 05-27-2024 Episodic Past or Other Problems Problem Classification Problem Date Documented Date Episodic/Chronic Complications of surgical procedures or medical care (20 sources) Wound dehiscence; Translations: [Disruption of wound, unspecified, initial encounter] Onset: 05-11-2021 05-12-2021 Episodic Diabetes mellitus without complication (1 source) Prediabetes; Translations: [Prediabetes] Onset: 04-22-2024 Episodic Hypertension with complications and secondary hypertension (20 sources) Hypertensive emergency; Translations: [Hypertensive emergency] Onset: 11-12-2019 Resolved: 11-15-2019 11-15-2019 Chronic Nausea and vomiting (3 sources) Nausea with vomiting, unspecified; Translations: [Nausea and vomiting] Onset: 06-05-2024 05-27-2024 Episodic Other acquired deformities (1 source) Other acquired deformity of head; Translations: [Acquired skull defect] Onset: 05-03-2022 Episodic Other inflammatory condition of skin (20 sources) Seborrheic dermatitis; Translations: [Seborrheic dermatitis, unspecified] Onset: 07-20-2020 07-20-2020 Episodic Other nervous system disorders (20 sources) Impairment of balance; Translations: [Other abnormalities of gait and mobility] Onset: 12-31-2020 12-31-2020 Episodic Other nutritional; endocrine; and metabolic disorders (20 sources) Body mass index 40+ - severely obese; Translations: [Morbid (severe) obesity due to excess calories] Onset: 11-12-2019 Resolved: 07-14-2020 11-28-2019 Chronic Other screening for suspected conditions (not mental disorders or infectious disease) (9 sources) Patient encounter status; Translations: [Encounter for screening mammogram for malignant neoplasm of breast] Onset: 02-16-2022 Episodic Residual codes; unclassified (1 source) Other specified postprocedural states; Translations: [Hx of craniotomy] Onset: 12-28-2020 Episodic Results Test Name Value Interpretation Reference Range Facility CULTURE WOUND [NEAL]on CULTURE WOUND [NEAL] CULTURE WOUND [NEAL] _WOUND CULTURE_ GO TO [facility] REPORTS AND ATTACHMENTS FOR SCANNED REPORT 01/20/25.0952.DNP.COMP LETE Normal [facility] Comment on above: Performed By: #### 2 [id number] #### [facility],[address] [place] [address] HEMOGLOBIN A1C (POM)on 01-15 Glucose [Mass/Vol] 102.5 mg/dL High 0.0 - 0.0 [facility] Comment on above: Result Comment: BLDo HEMOGLOBIN A1C REFERENCE RANGESBLDo Suggested Diagnosis HbA1c(%) HbA1C (mmol/mol Diabetic >/=6.5 >/=48 Prediabetes 5.7 - 6.4 39 - 47 Normal <5.7 <39 Performed By: #### 2 10012 #### [facility],[address] [place] [address] HbA1c (Bld) [Mass fraction] 5.2 % Normal 0.0 - 6.5 [facility] Comment on above: Performed By: #### 2 86068 #### [facility],[address] [place], [place] [address] CNPNon 12-11-2024 CNPN Telephone ([facility]) KENNEDYJUAN JOSEMERLE COPPOLA ([id number]) 1960 F Date Time Provider Department 12/11/24 ADILENE LINO [id number] During your visit today, we recorded the following information about you: Audrey Salguero 12/11/2024 9:54 AM Signed CV PHONE Name of caller : Merle Relationship to patient : Self If not self Will need patient permission to release results or disclose health information with called documented in . Patient identified by Name and Date of . ( Merle Blackmonkb, 1960). Yes Number to return call [phone] Reason for Call: Patient appointment; patient states she has a whole in head and it leaks and would like an appointment to see Dr. Lino. Thank you calling [facility]. You will receive a return call within 48 hours ( or 2 business days if close to the weekend). If you feel that this is an urgent issue and needs immediate attention, it is recommended that you contact your primary care provider office or proceed to your nearest Urgent Care Center of Emergency Room ED for evaluation/treatment. Carmenza Harvey RN 12/11/2024 10:16 AM Signed Will follow up with scheduling, patient previously scheduled for wound follow up in June 2024, rescheduled for July 2024, appointment cancelled by patient. Will also follow up with patient to confirm appointments. LORENZO Herr Allergies As of Date: 12/11/2024 Noted Allergy Reaction POLLEN EXTRACTS 06/15/2022 14 - Other: See Comments Comments: Sneezing, itchy eyes Date Reviewed: 05/27/2024 Reviewed by: Fernanda Obregon APRN.PAINT BOOTH OPERATOR - Fully Assessed Reason for Visit: Appointment [186] Cmt: Patient want an appointment to see Dr. Lino Prescriptions as of 12/11/2024 - pantoprazole (PROTONIX) 40 mg tablet TAKE 1 TABLET BY MOUTH ONCE DAILY. 30 MINUTES BEFORE EATING. - estradiol (ESTRACE) 0.01 % (0.1 mg/gram) vaginal cream APPLY 2 GRAMS DAILY FOR 14 DAYS THEN 1-3 TIMES PER WEEK - fluvoxaMINE Maleate (LUVOX) 25 mg tablet Take 25 mg by mouth daily at bedtime. - LORazepam (ATIVAN) 0.5 mg TAKE 1 (ONE) TABLET EVERY TWELVE HOURS NEEDED FOR SEVERE ANXIETY/PANIC ATTACK - nystatin (MYCOSTATIN) cream Apply to affected area two times a day. - fluticasone-salmeterol HFA (ADVAIR HFA) 115-21 mcg/actuation inhaler Inhale 2 Puffs as instructed two times a day. - albuterol HFA (PROVENTIL HFA, VENTOLIN HFA) 90 mcg/actuation inhaler Inhale 2 Puffs as instructed every 4 hours as needed for wheezing/shortness of breath. - ondansetron (ZOFRAN) 4 mg tablet Take 1 tablet by mouth every 8 hours as needed for nausea/vomiting. - hydrALAZINE (APRESOLINE) 50 mg tablet Take 1 tablet by mouth three times daily. - metFORMIN (GLUCOPHAGE) 500 mg tablet Take 1 tablet by mouth twice daily with meals. - carvedilol (COREG) 6.25 mg tablet Take 1 tablet by mouth twice daily with meals. - lisinopril (ZESTRIL) 40 mg tablet Take 1 tablet by mouth daily at bedtime. - amLODIPine (NORVASC) 10 mg tablet Take 1 tablet by mouth once daily. - atorvastatin (LIPITOR) 40 mg tablet Take 1 tablet by mouth once daily. - ketoconazole (NIZORAL) 2 % cream Apply 1 application to affected area once daily. - aspirin, enteric coated (ASPIRIN, ENTERIC COATED) 81 mg EC tablet Take 81 mg by mouth once daily. - CPAP/BIPAP/OTHER Type .CPAPSettings into a note to see current settings/supplies/DME information. - ONETOUCH ULTRA2 METER - blood sugar diagnostic (BLOOD GLUCOSE TEST) test strip Test blood sugar(s) 2 times daily. Dx: Type 2 DM - Uncontrolled E11.65 Insulin: No DX: E11.9 - Lancets lancets Test blood sugar(s) 2 times daily. Dx: Type 2 DM - Uncontrolled E11.65 Insulin: No DX:E11.9 - acetaminophen (TYLENOL) 325 mg tablet Take 2 tablets by mouth every 4 hours as needed for pain. - Ascorbic Acid 1,000 mg tablet Take 1,000 mg by mouth once daily. PRN - cholecalciferol, vitamin D3, (VITAMIN D3 ORAL) Take by mouth. 2000 international unit(s) daily - vitamin B complex (B COMPLEX ORAL) Take 1 tablet by mouth once daily. Meds Comments as of 05/18/2021: 12/03/19 The medications are managed by this patient by: PATIENT Copperas Coveeboni Prado, COA 05/18/21 SOC no severe interactions noted Problem List As Of Date 12/11/2024 Noted Resolved Hypertension, essential [I10] 02/13/2006 Anxiety [F41.9] 03/22/2006 Hypertensive emergency [I16.1] 11/12/2019 11/15/2019 Obesity, Class III, BMI >= 40 [E66.813] 11/12/2019 11/28/2019 CVA (cerebral vascular accident) (HCC) [I63.9] 11/12/2019 Diabetes mellitus type 2, controlled, without c*11/14/2019 Hyperlipidemia [E78.5] 11/14/2019 Ataxia due to acute cerebrovascular disease [I6*11/25/2019 Obesity, Class II, BMI 35-39.9 [E66.812] 11/28/2019 Intracranial aneurysm [I67.1] 12/18/2019 Obesity, Class III, BMI >= 40 [E66.813] 01/07/2020 07/14/2020 FABIOLA (obstructive sleep apnea) [G47.33] (more content not included)... [facility] AMYLASEon 07-02-2024 Amylase [Catalytic activity/Vol] 44 U/L Normal 25 - 115 [facility] Comment on above: Performed By: #### 2 66143 #### [place] [address] CBC (NO DIFF)on 07-02-2024 CBC panel Auto (Bld) Normal [facility] Comment on above: Result Comment: CBC( WITHOUT DIFFERENTIAL) Performed By: #### 2 98163 #### [place] [id number] Erythrocyte distribution width (RBC) [Ratio] 13.0 % Normal 12.0 - 15.6 [facility] Comment on above: Performed By: #### 2 07363 #### [facility],[address] [place] [address] Hematocrit (Bld) [Volume fraction] 42.8 % Normal 34.0 - 46.0 [facility] Comment on above: Performed By: #### 2 66811 #### [facility],[address] [place] [address] 14867 Hemoglobin (Bld) [Mass/Vol] 15.1 g/dL Normal 12.0 - 16.0 [facility] Comment on above: Performed By: #### 2 21299 #### [facility],[address] [place] [address] 29773 MCH (RBC) [Entitic mass] 32 pg Normal 27 - 33 [facility] Comment on above: Performed By: #### 2 20317 #### [facility],[address] [place] [address] 46013 MCHC 35 X10 3 Normal 32 - 36 [facility] Comment on above: Performed By: #### 2 51962 #### [facility],[address] [place] [address] 79366 MCV (RBC) [Entitic vol] 91 fL Normal 80 - 99 [facility] Comment on above: Performed By: #### 2 42497 #### [facility],[address] [place] [address]9340 PLATELET 219 x10EE3/UL Normal 150 - [address] [facility] Comment on above: Performed By: #### 2 49024 #### [facility],[address] [place] [address] 31436 Platelet mean volume (Bld) [Entitic vol] 9.3 fL Normal 6.6 - 10.5 [facility] Comment on above: Performed By: #### 2 26403 #### [facility],[address] [place] [address] 20726 RBC 4.69 x 10EE6/UL Normal 4.10 - 5.30 [facility] Comment on above: Performed By: #### 2 07188 #### [facility],[address] [place] [address] 40426 WBC 6.9 x 10EE3/UL Normal 4.5 - 10.8 [facility] Comment on above: Performed By: #### 2 49466 #### [facility],[address] [place] [address] 31401 CMP with eGFRon 07-02-2024 AGE 63 years Normal [facility] Comment on above: Performed By: #### 2 24735 #### [facility],[address] [place] [address] 75271 Albumin [Mass/Vol] 4.4 g/dL Normal 3.4 - 5.0 [facility] Comment on above: Performed By: #### 2 36356 #### [facility],[address] [place] [address] 36220 Albumin/Globulin [Mass ratio] 1.6 {ratio} Normal 0.9 - 1.6 [facility] Comment on above: Performed By: #### 2 10958 #### [facility],[address] [place] [address] 63113 ALK PHOS 56 U/L Normal 46 - 116 [facility] Comment on above: Performed By: #### 2 40274 #### [facility],[address] [place] [address] 13793 ALT [Catalytic activity/Vol] 30 U/L Normal 16 - 63 [facility] Comment on above: Performed By: #### 2 66129 #### [facility],[address] [place] [address] 43596 Anion gap [Moles/Vol] 12 mmol/L Normal 10 - 20 [facility] Comment on above: Performed By: #### 2 63230 #### [facility],[address] [place] [address] 37212 AST [Catalytic activity/Vol] 15 U/L Normal 13 - 39 [facility] Comment on above: Performed By: #### 2 08684 #### [facility],[address] [place] [address] 88777 B/C RATIO 33 ratio High 0 - 30 [facility] Comment on above: Performed By: #### 2 24790 #### [facility],[address] [place] [address] 14567 Bilirubin [Mass/Vol] 1.8 mg/dL High 0.2 - 1.0 [facility] Comment on above: Performed By: #### 2 64534 #### [facility],[address] [place] [address] 71908 Calcium [Mass/Vol] 9.9 mg/dL Normal 8.5 - 10.1 [facility] Comment on above: Performed By: #### 2 61496 #### [facility],[address] [place] [address] 08845 Chloride [Moles/Vol] 102 mmol/L Normal 98 - 107 [facility] Comment on above: Performed By: #### 2 75960 #### [facility],[address] [place] [address] 90630 CMP with eGFR Normal [facility] Comment on above: Result Comment: COMP REHENSIVE METABOLIC PANEL Performed By: #### 2 00795 #### [facility],[address] [place] [address] 06311 CO2 [Moles/Vol] 27.5 mmol/L Normal 21.0 - 32.0 [facility] Comment on above: Performed By: #### 2 88868 #### [facility],[address] [place] [address] 34046 Creatinine [Mass/Vol] 0.72 mg/dL Normal 0.55 - 1.02 [facility] Comment on above: Performed By: #### 2 71662 #### [facility],[address] [place] [address] 10230 GFR/1.73 sq M.predicted among non-blacks MDRD (S/P/Bld) [Vol rate/Area] mL/min/{1.73_m2} Normal 60 - 999 [facility] Comment on above: Performed By: #### 2 01275 #### [facility],[address] [place] [address] 69028 Result Comment: ACCO RDING TO THE NATIONAL KIDNEY DISEASE EDUCATION PROGRAM(NKDE), A NORMAL eGFR IS A VALUE GREATER THAN OR EQUAL TO 60 ML/MIN/1.73 SQ METERS. CHRONIC KIDNEY DISEASE: <60mL/MIN/1.73 SQ METERS KIDNEY FAILURE: <15mL/MIN/1.73 SQ METERS THIS TEST SHOULD ONLY BE USED FOR PATIENTS 18 YEARS OF AGE AND OLDER. Globulin (S) [Mass/Vol] 2.8 g/dL Normal 1.5 - 3.8 [facility] Comment on above: Performed By: #### 2 67996 #### [facility],[address] [place] [address] 96786 Glucose [Mass/Vol] 105 mg/dL Normal 74 - 106 [facility] Comment on above: Performed By: #### 2 06453 #### [facility],[address] [place] [address] 93016 Potassium [Moles/Vol] 3.8 mmol/L Normal 3.5 - 5.1 [facility] Comment on above: Performed By: #### 2 97037 #### [facility],[address] [place] [address] 52561 Protein [Mass/Vol] 7.2 g/dL Normal 6.4 - 8.2 [facility] Comment on above: Performed By: #### 2 00301 #### [facility],[address] [place] [address] 77262 Sodium [Moles/Vol] 138 mmol/L Normal 136 - 145 [facility] Comment on above: Performed By: #### 2 43242 #### [facility],[address] [place] [address] 58020 Urea nitrogen [Mass/Vol] 24 mg/dL High 7 - 18 [facility] Comment on above: Performed By: #### 2 52865 #### [address] [address] LIPASEon 07-02-2024 Lipase [Catalytic activity/Vol] 43.0 U/L Normal 15.0 - 78.0 [facility] Comment on above: Result Comment: *PLE ASE NOTE THAT RANGES FOR LIPASE HAVE CHANGED OF 03/10/23 DUE TO AN ASSAY UPDATE BY THE GLOVE OPERATOR.THE NEW ASSAY RANGE IS 6-250 U/L, WITH A REFERENCE RANGE OF 16-77 U/L. Performed By: #### 2 57976 #### [address] [address] CNPCaitlin 05-31-2024 [facility] Telephone ([facility]) MERLE BRADLEY ([id number]) 1960 F Date Time Provider Department 05/31/24 ADILENE LINO [facility] During your visit today, we recorded the following information about you: Carmenza Harvey RN 05/31/2024 11:00 AM Signed Called patient to offer closer date to see Dr. Lino. Dates offered and patient accepted 06/12/24. Patient appreciated phone call and the assistance. LORENZO Herr Allergies As of Date: 05/31/2024 Noted Allergy Reaction POLLEN EXTRACTS 06/15/2022 14 - Other: See Comments Comments: Sneezing, itchy eyes Date Reviewed: 05/27/2024 Reviewed by: Obregon, Fernanda, CERTIFIED ACTIVITIES DIRECTOR.PAINT BOOTH OPERATOR - Fully Assessed Prescriptions as of 05/31/2024 - estradiol (ESTRACE) 0.01 % (0.1 mg/gram) vaginal cream APPLY 2 GRAMS DAILY FOR 14 DAYS THEN 1-3 TIMES PER WEEK - fluvoxaMINE Maleate (LUVOX) 25 mg tablet Take 25 mg by mouth daily at bedtime. - LORazepam (ATIVAN) 0.5 mg TAKE 1 (ONE) TABLET EVERY TWELVE HOURS NEEDED FOR SEVERE ANXIETY/PANIC ATTACK - nystatin (MYCOSTATIN) cream Apply to affected area two times a day. - fluticasone-salmeterol HFA (ADVAIR HFA) 115-21 mcg/actuation inhaler Inhale 2 Puffs as instructed two times a day. - pantoprazole DR (PROTONIX) 40 mg tablet Take 1 tablet by mouth once daily. 30 minutes before eating. - albuterol HFA (PROVENTIL HFA, VENTOLIN HFA) 90 mcg/actuation inhaler Inhale 2 Puffs as instructed every 4 hours as needed for wheezing/shortness of breath. - ondansetron (ZOFRAN) 4 mg tablet Take 1 tablet by mouth every 8 hours as needed for nausea/vomiting. - hydrALAZINE (APRESOLINE) 50 mg tablet Take 1 tablet by mouth three times daily. - metFORMIN (GLUCOPHAGE) 500 mg tablet Take 1 tablet by mouth twice daily with meals. - carvedilol (COREG) 6.25 mg tablet Take 1 tablet by mouth twice daily with meals. - lisinopril (ZESTRIL) 40 mg tablet Take 1 tablet by mouth daily at bedtime. - amLODIPine (NORVASC) 10 mg tablet Take 1 tablet by mouth once daily. - atorvastatin (LIPITOR) 40 mg tablet Take 1 tablet by mouth once daily. - ketoconazole (NIZORAL) 2 % cream Apply 1 application to affected area once daily. - aspirin, enteric coated (ASPIRIN, ENTERIC COATED) 81 mg EC tablet Take 81 mg by mouth once daily. - CPAP/BIPAP/OTHER Type .CPAPSettings into a note to see current settings/supplies/DME information. - [place] InnoVenturesTOUCH ULTRA2 METER - blood sugar diagnostic (BLOOD GLUCOSE TEST) test strip Test blood sugar(s) 2 times daily. Dx: Type 2 DM - Uncontrolled E11.65 Insulin: No DX: E11.9 - Lancets lancets Test blood sugar(s) 2 times daily. Dx: Type 2 DM - Uncontrolled E11.65 Insulin: No DX:E11.9 - acetaminophen (TYLENOL) 325 mg tablet Take 2 tablets by mouth every 4 hours as needed for pain. - Ascorbic Acid 1,000 mg tablet Take 1,000 mg by mouth once daily. PRN - cholecalciferol, vitamin D3, (VITAMIN D3 ORAL) Take by mouth. 2000 international unit(s) daily - vitamin B complex (B COMPLEX ORAL) Take 1 tablet by mouth once daily. Meds Comments as of 05/18/2021: 12/03/19 The medications are managed by this patient by: PATIENT Diyaeboni Quezadaveronica, COA 05/18/21 SOC no severe interactions noted Problem List As Of Date 05/31/2024 Noted Resolved Hypertension, essential [I10] 02/13/2006 Anxiety [F41.9] 03/22/2006 Hypertensive emergency [I16.1] 11/12/2019 11/15/2019 Obesity, Class III, BMI >= 40 [E66.01] 11/12/2019 11/28/2019 CVA (cerebral vascular accident) (HCC) [I63.9] 11/12/2019 Diabetes mellitus type 2, controlled, without c*11/14/2019 Hyperlipidemia [E78.5] 11/14/2019 Ataxia due to acute cerebrovascular disease [I6*11/25/2019 Obesity, Class II, BMI 35-39.9 [E66.812] 11/28/2019 Intracranial aneurysm [I67.1] 12/18/2019 Obesity, Class III, BMI >= 40 [E66.01] 01/07/2020 07/14/2020 FABIOLA (obstructive sleep apnea) [G47.33] GERD (gastroesophageal reflux disease) [K21.9] Irritable bowel syndrome with diarrhea [K58.0] Back pain [M54.9] Seborrheic dermatitis [L21.9] 07/20/2020 Lacunar stroke (HCC) [I63.81] 10/22/2020 Hyperlipidemia associated with type 2 diabetes *10/22/2020 Hx of craniotomy [Z98.890] 12/28/2020 Imbalance [R26.89] 12/31/2020 Wound dehiscence [T81.30XA] 05/11/2021 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 Skin ulcer of scalp, limited to breakdown of sk*01/05/2024 Encounter Status:Closed by CARMENZA HARVEY on 05/31/24 [facility] Alfonso 05-30-2024 [facility]) MERLE BRADLEY ([id number]) 1960 F Date Time Provider Department 05/30/24 ADILENE LINO [facility] During your visit today, we recorded the following information about you: Allergies As of Date: 05/30/2024 Noted Allergy Reaction POLLEN EXTRACTS 06/15/2022 14 - Other: See Comments Comments: Sneezing, itchy eyes Date Reviewed: 05/27/2024 Reviewed by: Fernanda Obregon APRN.PAINT BOOTH OPERATOR - Fully Assessed Prescriptions as of 05/30/2024 - estradiol (ESTRACE) 0.01 % (0.1 mg/gram) vaginal cream APPLY 2 GRAMS DAILY FOR 14 DAYS THEN 1-3 TIMES PER WEEK - fluvoxaMINE Maleate (LUVOX) 25 mg tablet Take 25 mg by mouth daily at bedtime. - LORazepam (ATIVAN) 0.5 mg TAKE 1 (ONE) TABLET EVERY TWELVE HOURS NEEDED FOR SEVERE ANXIETY/PANIC ATTACK - nystatin (MYCOSTATIN) cream Apply to affected area two times a day. - fluticasone-salmeterol HFA (ADVAIR HFA) 115-21 mcg/actuation inhaler Inhale 2 Puffs as instructed two times a day. - pantoprazole DR (PROTONIX) 40 mg tablet Take 1 tablet by mouth once daily. 30 minutes before eating. - albuterol HFA (PROVENTIL HFA, VENTOLIN HFA) 90 mcg/actuation inhaler Inhale 2 Puffs as instructed every 4 hours as needed for wheezing/shortness of breath. - ondansetron (ZOFRAN) 4 mg tablet Take 1 tablet by mouth every 8 hours as needed for nausea/vomiting. - hydrALAZINE (APRESOLINE) 50 mg tablet Take 1 tablet by mouth three times daily. - metFORMIN (GLUCOPHAGE) 500 mg tablet Take 1 tablet by mouth twice daily with meals. - carvedilol (COREG) 6.25 mg tablet Take 1 tablet by mouth twice daily with meals. - lisinopril (ZESTRIL) 40 mg tablet Take 1 tablet by mouth daily at bedtime. - amLODIPine (NORVASC) 10 mg tablet Take 1 tablet by mouth once daily. - atorvastatin (LIPITOR) 40 mg tablet Take 1 tablet by mouth once daily. - ketoconazole (NIZORAL) 2 % cream Apply 1 application to affected area once daily. - aspirin, enteric coated (ASPIRIN, ENTERIC COATED) 81 mg EC tablet Take 81 mg by mouth once daily. - CPAP/BIPAP/OTHER Type .CPAPSettings into a note to see current settings/supplies/DME information. - [place] Inno[employer]uresTOUCH ULTRA2 METER - blood sugar diagnostic (BLOOD GLUCOSE TEST) test strip Test blood sugar(s) 2 times daily. Dx: Type 2 DM - Uncontrolled E11.65 Insulin: No DX: E11.9 - Lancets lancets Test blood sugar(s) 2 times daily. Dx: Type 2 DM - Uncontrolled E11.65 Insulin: No DX:E11.9 - acetaminophen (TYLENOL) 325 mg tablet Take 2 tablets by mouth every 4 hours as needed for pain. - Ascorbic Acid 1,000 mg tablet Take 1,000 mg by mouth once daily. PRN - cholecalciferol, vitamin D3, (VITAMIN D3 ORAL) Take by mouth. 2000 international unit(s) daily - vitamin B complex (B COMPLEX ORAL) Take 1 tablet by mouth once daily. Meds Comments as of 05/18/2021: 12/03/19 The medications are managed by this patient by: PATIENT Diya Prado, COA 05/18/21 SOC no severe interactions noted Problem List As Of Date 05/30/2024 Noted Resolved Hypertension, essential [I10] 02/13/2006 Anxiety [F41.9] 03/22/2006 Hypertensive emergency [I16.1] 11/12/2019 11/15/2019 Obesity, Class III, BMI >= 40 [E66.01] 11/12/2019 11/28/2019 CVA (cerebral vascular accident) (HCC) [I63.9] 11/12/2019 Diabetes mellitus type 2, controlled, without c*11/14/2019 Hyperlipidemia [E78.5] 11/14/2019 Ataxia due to acute cerebrovascular disease [I6*11/25/2019 Obesity, Class II, BMI 35-39.9 [E66.812] 11/28/2019 Intracranial aneurysm [I67.1] 12/18/2019 Obesity, Class III, BMI >= 40 [E66.01] 01/07/2020 07/14/2020 FABIOLA (obstructive sleep apnea) [G47.33] GERD (gastroesophageal reflux disease) [K21.9] Irritable bowel syndrome with diarrhea [K58.0] Back pain [M54.9] Seborrheic dermatitis [L21.9] 07/20/2020 Lacunar stroke (HCC) [I63.81] 10/22/2020 Hyperlipidemia associated with type 2 diabetes *10/22/2020 Hx of craniotomy [Z98.890] 12/28/2020 Imbalance [R26.89] 12/31/2020 Wound dehiscence [T81.30XA] 05/11/2021 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 Submit a new specimen if indicated. Normal [facility] Comment on above: Performed By: #### M 100.2208 #### [facility] [address] [place], [address] Absolute neutrophil countOrd ered By: Kallie Ghosh on 05-27-2024 Neutrophils (Bld) [#/Vol] 6.8 10*3/uL 2.0-7.7 [facility] Amorphous sediment detection in urine sediment by light microscopyOrdered By: Kallie Ghosh on 05-27-2024 Amorphous sediment LM Ql (Urine sed) 1+ URATE [facility] Anion gap in Serum or Plasma Ordered By: Kallie Ghosh on 05-27-2024 Anion gap [Moles/Vol] 18 mmol/L High 5-15 [facility] BUN/creatinine ratioOrdered By: Kallie Ghosh on 05-27-2024 Urea nitrogen/Creatinine [Mass ratio] 29.2 mg/mg High 10-20 [facility] Basophil percentageOrdered B y: Kallie Ghosh on 05-27-2024 Basophils/100 WBC (Bld) 0.2 % 0-1 [facility] Bilirubin Test strip Ql (U)O rdered By: Kallie Ghosh on 05-27-2024 Bilirubin Ql (U) 1 mg/dL High Negative [facility] Comment on above: COLOR OF URINE MAY A FFECT DIPSTICK RESULTS. Bilirubin, totalOrdered By: Kallie Ghosh on 05-27-2024 Bilirubin [Mass/Vol] 1.41 mg/dL High 0.00-1.30 [facility] CBC W/Diff, Automatedon 05-11 Absolute Lymph 2.31 X10 3/uL Normal 0.83-4.51 [facility] Comment on above: Performed By: #### L 501.2450, L500.4050, L100.0100 #### [facility] [address] [place], [address] Absolute Neut 6.8 X10 3/uL Normal 2.0-7.7 [facility] Comment on above: Performed By: #### L 501.2450, [id number], L100.0100 #### [facility] [address] [place], [address] Basophils/100 WBC (Bld) 0.2 % Normal 0-1 [facility] Comment on above: Performed By: #### L 501.2450, [id number], L100.0100 #### [facility] [address] [place], [address] Eosinophils/100 WBC (Bld) 0.1 % Normal 0-5 [facility] Comment on above: Performed By: #### L 501.2450, [id number], L100.0100 #### [facility] [address] [place], [address] Erythrocyte distribution width (RBC) [Ratio] 13.9 % Normal 11.6-14.6 [facility] Comment on above: Performed By: #### L 501.2450, [id number], L100.0100 #### [facility] [address] [place], [address] Hematocrit (Bld) [Volume fraction] 48.1 % High 37-47 [facility] Comment on above: Performed By: #### L 501.2450, [id number], L100.0100 #### [facility] [address] [place], [address] Hemoglobin (Bld) [Mass/Vol] 17.5 g/dL High 12.0-15.0 [facility] Comment on above: Performed By: #### L 501.2450, [id number], L100.0100 #### [facility] [address] [place], [address] IG% 0.400 Normal 0.0-0.9 [facility] Comment on above: Result Comment: IG% - Immature Granulocytes (promyelocytes, myelocytes and metamyelocytes) > 1% indicates that a LEFT SHIFT is Present. Performed By: #### L 501.2450, L500.4050, L100.0100 #### [facility] [address] [place], [address] Lymphocytes/100 WBC (Bld) 24.2 % Normal 19-41 [facility] Comment on above: Performed By: #### L 501.2450, [id number], L100.0100 #### [facility] [address] [place], [address] MCH (RBC) [Entitic mass] 32.1 pg High 27.0-32.0 [facility] Comment on above: Performed By: #### L 501.2450, [id number], L100.0100 #### [facility] [address] [place], [address] MCHC (RBC) [Mass/Vol] 36.4 g/dL High 32-36 [facility] Comment on above: Performed By: #### L 501.2450, [id number], L100.0100 #### [facility] [address] [place], [address] MCV (RBC) [Entitic vol] 88.3 fL Normal 81-99 [facility] Comment on above: Performed By: #### L 501.2450, [id number], L100.0100 #### [facility] [address] [place], [address] Monocytes/100 WBC (Bld) 4.1 % Normal 0-10 [facility] Comment on above: Performed By: #### L 501.2450, [id number], L100.0100 #### [facility] [address] [place], [address] Neutrophils/100 WBC (Bld) 71.0 % High 47-70 [facility] Comment on above: Performed By: #### L 501.2450, [id number], L100.0100 #### [facility] [address] [place], [address] Nucleated RBC (Bld) [#/Vol] 0 10*3/uL Normal 0-5 [facility] Comment on above: Performed By: #### L 501.2450, [id number], L100.0100 #### [facility] [address] [place], [address] Platelet mean volume (Bld) [Entitic vol] 11.0 fL Normal 6.2-12.0 [facility] Comment on above: Performed By: #### L 501.2450, [id number], L100.0100 #### [facility] [address] [place], [address] Platelets (Bld) [#/Vol] 274 10*3/uL Normal 150-450 [facility] Comment on above: Performed By: #### L 501.2450, [id number], L100.0100 #### [facility] [address] [place], [address] RBC (Bld) [#/Vol] 5.45 10*6/uL High 4.2-5.4 [facility] Comment on above: Performed By: #### L 501.2450, [id number], L100.0100 #### [facility] [address] [place], [address] RDW SD 44.4 fl High 35.1-43.9 [facility] Comment on above: Performed By: #### L 501.2450, [id number], L100.0100 #### [facility] [address] [place], [address] WBC (Bld) [#/Vol] 9.6 10*3/uL Normal 4.4-11.0 [facility] Comment on above: Performed By: #### L 501.2450, [id number], L100.0100 #### [facility] [address] [place], [address] Oksana 05-27-2024 CNOV Office Visit (UCWSTR ) MERLE BRADLEY ([id number]) 1960 F Date Time Provider Department 05/27/24 11:30 AM FERNANDA OBREGON During your visit today, we recorded the following information about you: Temperature Pulse Respiration Blood pressure 98.7 degrees 80/minute 18/minute 132/82 Weight 79.6 kg Fernanda Obregon APRN.[employer] OPERATOR 05/27/2024 11:56 AM Signed [facility] NOTE Subjective Merle Bradley is a 63 year old year old who presents to [facility] today with complaint of nausea, vomiting, diarrhea, fever/chills, abdominal pain. States she has been having frequent non-bloody diarrhea multiple times daily and has been vomiting multiple times daily- unable to keep ndy food or fluids down x 3 days. States she has taken maalox, Zofran ODT and this have not relieved her symptoms. She now states she is urinating more frequently- history of Diabetes. Denies recent travel, denies sick contacts. Denies headaches, fever, sore throat, cough, shortness of breath, chest pains or skin rashes. Aside from symptoms as described above, patient has no other complaints at this time. HPI: see above Review of Systems Constitutional: Positive for chills, fatigue and fever. HENT: Negative for congestion, ear pain, postnasal drip, sinus pressure and sore throat. Eyes: Negative for pain, discharge and itching. Respiratory: Negative for cough, shortness of breath and wheezing. Cardiovascular: Negative for chest pain, palpitations and leg swelling. Gastrointestinal: Positive for abdominal distention, abdominal pain (all over- non specific), diarrhea, nausea and vomiting. Negative for blood in stool. Genitourinary: Positive for frequency. Negative for dysuria and urgency. Musculoskeletal: Negative for myalgias. Skin: Negative for rash. Neurological: Negative for headaches. Hematological: Negative for adenopathy. ALLERGIES Allergen Reactions Pollen Extracts Other: See Comments Sneezing, itchy eyes Current Outpatient Medications on File Prior to Visit Medication Sig estradiol (ESTRACE) 0.01 % (0.1 mg/gram) vaginal cream APPLY 2 GRAMS DAILY FOR 14 DAYS THEN 1-3 TIMES PER WEEK fluvoxaMINE Maleate (LUVOX) 25 mg tablet Take 25 mg by mouth daily at bedtime. LORazepam (ATIVAN) 0.5 mg TAKE 1 (ONE) TABLET EVERY TWELVE HOURS NEEDED FOR SEVERE ANXIETY/PANIC ATTACK nystatin (MYCOSTATIN) cream Apply to affected area two times a day. fluticasone-salmeterol HFA (ADVAIR HFA) 115-21 mcg/actuation inhaler Inhale 2 Puffs as instructed two times a day. pantoprazole DR (PROTONIX) 40 mg tablet Take 1 tablet by mouth once daily. 30 minutes before eating. albuterol HFA (PROVENTIL HFA, VENTOLIN HFA) 90 mcg/actuation inhaler Inhale 2 Puffs as instructed every 4 hours as needed for wheezing/shortness of breath. ondansetron (ZOFRAN) 4 mg tablet Take 1 tablet by mouth every 8 hours as needed for nausea/vomiting. hydrALAZINE (APRESOLINE) 50 mg tablet Take 1 tablet by mouth three times daily. metFORMIN (GLUCOPHAGE) 500 mg tablet Take 1 tablet by mouth twice daily with meals. carvedilol (COREG) 6.25 mg tablet Take 1 tablet by mouth twice daily with meals. lisinopril (ZESTRIL) 40 mg tablet Take 1 tablet by mouth daily at bedtime. amLODIPine (NORVASC) 10 mg tablet Take 1 tablet by mouth once daily. atorvastatin (LIPITOR) 40 mg tablet Take 1 tablet by mouth once daily. ketoconazole (NIZORAL) 2 % cream Apply 1 application to affected area once daily. aspirin, enteric coated (ASPIRIN, ENTERIC COATED) 81 mg EC tablet Take 81 mg by mouth once daily. CPAP/BIPAP/OTHER Type .CPAPSettings into a note to see current settings/supplies/DME information. ONETOUCH ULTRA2 METER blood sugar diagnostic (BLOOD GLUCOSE TEST) test strip Test blood sugar(s) 2 times daily. Dx: Type 2 DM - Uncontrolled E11.65 Insulin: No DX: E11.9 Lancets lancets Test blood sugar(s) 2 times daily. Dx: Type 2 DM - Uncontrolled E11.65 Insulin: No DX:E11.9 acetaminophen (TYLENOL) 325 mg tablet Take 2 tablets by mouth every 4 hours as needed for pain. Ascorbic Acid 1,000 mg tablet Take 1,000 mg by mouth once daily. PRN cholecalciferol, vitamin D3, (VITAMIN D3 ORAL) Take by mouth. 2000 international unit(s) daily vitamin B complex (B COMPLEX ORAL) Take 1 tablet by mouth once daily. No current facility-administered medications on file prior to visit. ACTIVE PROBLEM LIST Hypertension, Essential Anxiety Cva (Cerebral Vascular Accident) (Hcc) Diabetes Mellitus Type 2, Controlled, Without Complications (Hcc) Hyperlipidemia Ataxia Due to Acute Cerebrovascular Disease Obesity, Class II, Bmi 35-39.9 Intracranial Aneurysm Fabiola (Obstructive Sleep Apnea) Gerd (Gastroesophageal Reflux Disease) Irritable Bowel Syndrome With Diarrhea Back Pain Seborrheic Dermatitis Lacunar Stroke (Hcc) Hyperlipidemia Associated With Type 2 Di (more content not included)... Normal [facility] Carbon dioxide, total [Moles /volume] in Central venous bloodOrdered By: Kallie Ghosh on 05-27-2024 CO2 [Moles/Vol] 16.7 mmol/L Low 21.0-32.0 [facility] Chloride assayOrdered By: Lukasz Ghosh on 05-27-2024 Chloride [Moles/Vol] 101 mmol/L 98-108 [facility] Comprehensive Metabolic Prof ilon 05-27-2024 Albumin [Mass/Vol] 5.1 g/dL High 3.4-4.8 [facility] Comment on above: Performed By: #### L 501.2450, L500.4050, L100.0100 #### [facility] [address] [place], [address] Albumin/Globulin [Mass ratio] 1.5 {ratio} Normal 0.9-2.4 [facility] Comment on above: Performed By: #### L 501.2450, L500.4050, L100.0100 #### [facility] [address] [place], [address] ALK PHOS 75 U/L Normal 35-104 [facility] Comment on above: Performed By: #### L 501.2450, L500.4050, L100.0100 #### [facility] [address] [place], [address] ALT [Catalytic activity/Vol] 35 U/L Normal <=34 [facility] Comment on above: Performed By: #### L 501.2450, L500.4050, L100.0100 #### [facility] [address] [place], [address] AST [Catalytic activity/Vol] 25 U/L Normal <=31 [facility] Comment on above: Performed By: #### L 501.2450, L500.4050, L100.0100 #### [facility] [address] [place], [address] Bilirubin [Mass/Vol] 1.41 mg/dL High 0.00-1.30 [facility] Comment on above: Performed By: #### L 501.2450, L500.4050, L100.0100 #### [facility] [address] [place], [address] BUN/CRE 29.2 RATIO High 10-20 [facility] Comment on above: Performed By: #### L 501.2450, L500.4050, L100.0100 #### [facility] [address] [place], [address] Calcium [Mass/Vol] 10.7 mg/dL Normal 7.6-11.0 [facility] Comment on above: Performed By: #### L 501.2450, L500.4050, L100.0100 #### [facility] [address] [place], [address] Chloride [Moles/Vol] 101 mmol/L Normal 98-108 [facility] Comment on above: Performed By: #### L 501.2450, L500.4050, L100.0100 #### [facility] [address] [place], [address] CO2 [Moles/Vol] 16.7 mmol/L Low 21.0-32.0 [facility] Comment on above: Performed By: #### L 501.2450, L500.4050, L100.0100 #### [facility] [address] [place], [address] Creatinine [Mass/Vol] 0.81 mg/dL Normal 0.70-1.20 [facility] Comment on above: Performed By: #### L 501.2450, L500.4050, L100.0100 #### [facility] [address] [place], [address] ECRCL 73.51 ml/min Normal 50-250 [facility] Comment on above: Performed By: #### L 501.2450, L500.4050, L100.0100 #### [facility] [address] [place], [address] GAP 18 High 5-15 [facility] Comment on above: Performed By: #### L 501.2450, L500.4050, L100.0100 #### [facility] [address] [place], [address] GFR/1.73 sq M.predicted among non-blacks MDRD (S/P/Bld) [Vol rate/Area] 82 mL/min/{1.73_m2} Normal >60 [facility] Comment on above: Result Comment: mL/m in/1.73m2 CKD-EPI Creatinine Equation (2020) Performed By: #### L 501.2450, L500.4050, L100.0100 #### [facility] [address] [place], [address] Globulin (S) [Mass/Vol] 3.4 g/dL Normal 2.2-4.2 [facility] Comment on above: Performed By: #### L 501.2450, L500.4050, L100.0100 #### [facility] [address] [place], [address] Glucose [Mass/Vol] 127 mg/dL High 70-99 [facility] Comment on above: Performed By: #### L 501.2450, L500.4050, L100.0100 #### [facility] [address] [place], [address] Potassium [Moles/Vol] 3.6 mmol/L Normal 3.3-5.1 [facility] Comment on above: Performed By: #### L 501.2450, L500.4050, L100.0100 #### [facility] [address] [place], [address] Sodium [Moles/Vol] 136 mmol/L Normal 133-145 [facility] Comment on above: Performed By: #### L 501.2450, L500.4050, L100.0100 #### [facility] [address] [place], [address] T PROT 8.4 g/dL Normal 5.9-8.4 [facility] Comment on above: Performed By: #### L 501.2450, L500.4050, L100.0100 #### [facility] [address] [place], [address] Urea nitrogen [Mass/Vol] 24 mg/dL High 4-19 [facility] Comment on above: Performed By: #### L 501.2450, L500.4050, L100.0100 #### [facility] [address] [place], [address] Emergency Department Summary on 05-27-2024 Emergency Department Summary [facility] Medical Records Department [address] [place] [address] Emergency Department Summary 05/27/24 MR#: [id number] Acct: [id number] Name: MERLE BRADLEY RICHAR Rep #: [id number] : 1960 63 From: Kallie Ghosh DO PCP: RACHEL Hwang Status:REG ER Location: ED HPI History of Present Illness Chief Complaint: Nausea/Vomiting Informant: patient Narrative Narrative: Patient is 63-year-old female with a history of hypertension, stroke of brain aneurysm presenting with nausea vomiting and diarrhea. She came down with GI symptoms 3 days ago (Monday night into Monday morning). She had vomiting and diarrhea. She also notes that time she was having frequent urination. She continued have vomiting throughout the weekend and continue to vomit this morning. Has not been able to eat much but has been able to keep down water. Denies any abdominal pain except for discomfort associate with vomiting. Denies any dysuria. Notes her urine has been darker than normal. On Monday night when it for started she was having sweats and cold chills and thought she had a fever. Denies any URI symptoms. Has not been around her grandchildren but there has been a GI bug going around there. I was concerned about dehydration and came in. Denies any lightheadedness. [facility] Medical History Back problem Asthma Arthritis Home Medications ???Medication ???Instructions ???Recorded ???Last Taken ???Type amlodipine 10 mg tablet 10 mg PO QDAY 05/03/24 Unknown His tory estradiol 0.01% (0.1 mg/gram) vaginal 05/03/24 Unknown History vaginal cream fluvoxamine 25 mg tablet 25 mg PO QHS 05/03/24 Unknown Hist ory lisinopril 40 mg tablet 40 mg PO QHS 05/03/24 Unknown Hist ory nystatin 100,000 unit/gram topical topical BID 05/03/24 Unknown His tory cream metoclopramide HCl 10 mg tablet 10 mg PO Q6H PRN nausea and Unknown Rx (Reglan) vomiting #10 tabs nitrofurantoin 100 mg PO Q12 #10 CAPSULES 5 Unknown Rx monohydrate/macrocryst als 100 mg capsule Allergy/AdvReac Type Severity Reaction Status Date / Time latex Allergy Mild Itching Verified 05/27/24 11:52 Social History Smoking Status: Unknown if ever smoked ROS ROS ED Constitutional Constitutional ED: Reports chills, fever(s) and sweats Cardiovascular Cardiovascular: Denies chest pain Respiratory/Chest Respiratory/Chest: Denies cough or dyspnea Gastrointestinal Gastrointestinal: Reports abdominal pain, diarrhea, nausea and vomiting; Denies melena Genitourinary Genitourinary ED: Reports dysuria and other Details: Dark urine, decreased urination ; Denies urinary frequency Musculoskeletal Musculoskeletal: Denies arthralgias or myalgias Integumentary Denies rash Neurologic Neurologic: Reports weakness Hematologic/Lymphatic Hematologic/Lymphatic: Denies easy bleeding or easy bruising EXAM Physical Exam Const Vital Signs: 05/27/24 11:49 05/27/24 13:44 05/27/24 14:57 Temperature 97.8 F Temperature Source Temporal Pulse Rate 80 75 78 Respiratory Rate 16 19 H 18 Blood Pressure 130/83 H 137/82 H 132/63 H Blood Pressure Mean 98 100 86 Pulse Ox 95 99 98 Oxygen Delivery Method Room Air Room Air Room Air 05/27/24 16:59 Temperature Temperature Source Pulse Rate 77 Respiratory Rate 18 Blood Pressure 135/78 H Blood Pressure Mean 97 Pulse Ox 98 Oxygen Delivery Method Room Air Positive well nourished and well developed General Appearance ED: well developed and NAD HEENT Reports moist mucous membranes Eyes PERRL Neck supple Chest Wall inspection of chest normal and palpation of chest normal Resp normal respiratory effort and clear to auscultation bilaterally Cardio regular rate, regular rhythm and no murmurs GI normal to inspection, nondistended, normoactive bowel sounds, non-tender and non-distended Auscultation: normoactive bowel sounds Extremity normal to inspection General Extremety ED: Negative for edema General Extremity: Negative for edema Neuro oriented x3 Sensorium / Orientation: alert Motor Exam: Negative for general weakness Psych mental status grossly normal Skin no rashes or lesions noted and no wounds General Skin Exam: Negative for jaundice MDM MDM MDM Narrative Medical decision making narrative: Patient evaluated for 3 days of vomiting. Initially also had subjective fevers, chills and diarrhea. Has Zofran at home with no relief. Differential includes viral syndrome, gastroenteritis, dehydration, electrolyte abnormality, JANIE and urinary tract infection. Patient currently does not have any abdominal pain is benign physical exam I do not think she req (more content not included)... Normal [facility] Eosinophil percentageOrdered By: Kallie Ghosh on 05-27-2024 Eosinophils/100 WBC (Bld) 0.1 % 0-5 [facility] Epithelial cells.squamous LM Ql (Urine sed)Ordered By: Kallie Ghosh on 05-27-2024 Epithelial cells.squamous LM.HPF (Urine sed) [#/Area] 10 /[HPF] 5-10 [facility] Erythrocyte distribution wid th ratioOrdered By: Kallie Ghosh on 05-27-2024 Erythrocyte distribution width (RBC) [Ratio] 13.9 % 11.6-14.6 [facility] Erythrocyte distribution wid th standard deviationOrdered By: Kallie Ghosh on 05-27-2024 Erythrocyte distribution width (RBC) [Entitic vol] 44.4 fL High 35.1-43.9 [facility] Estimation of creatinine ivon aranceOrdered By: Kallie Ghosh on 05-27-2024 Estimated Creatinine Clearance Calc 73.51 ml/min 50-250 [facility] GFR/1.73 sq M.predicted nancy g non-blacks MDRD (S/P/Bld) [Vol rate/Area]Ordered By: Kallie Ghosh on 05-27-2024 Estimated GFR (MDRD) Non-Af Amer 82 >60 [facility] Comment on above: mL/min/1.73m2 CKD-EP I Creatinine Equation (2020) Glucose Ql (U)Ordered By: Lukasz Ghosh on 05-27-2024 Urine Glucose (UA) Normal mg/dl Normal [facility] Hematocrit Auto (Bld) [Volum e fraction]Ordered By: Kallie Ghosh on 05-27-2024 Hematocrit (Bld) [Volume fraction] 48.1 % High 37-47 [facility] Hemoglobin measurementOrdere d By: Kallie Ghosh on 05-27-2024 Hemoglobin (Bld) [Mass/Vol] 17.5 g/dL High 12.0-15.0 [facility] Immature granulocytes/100 WB C Auto (Bld)Ordered By: Kallie Ghosh on 05-27-2024 Immature granulocytes/100 WBC (Bld) 0.400 % 0.0-0.9 [facility] Comment on above: IG% - Immature Granu locytes (promyelocytes, myelocytes and metamyelocytes) > 1% indicates that a LEFT SHIFT is Present. Ketones Test strip Ql (U)Ord ered By: Kallie Ghosh on 05-27-2024 Ketones Ql (U) 50 mg/dl High Negative [facility] Laboratory - Chemistry and C hemistry - challengeOrdered By: Kallie Ghosh on 05-27-2024 AST [Catalytic activity/Vol] 25 U/L <32 [facility] Lipaseon 05-27-2024 Lipase [Catalytic activity/Vol] 35 U/L Normal 13-75 [facility] Comment on above: Result Comment: [place] note: LIPASE revised reference range effective 22. New Lipase methodology. Expected to produce lower values than the previous assay method. NEW Reference Range: 13 - 75 U/L Performed By: #### L 501.2450, L500.4050, L100.0100 #### [facility] [address] [place], [address] Lipase measurementOrdered By : Kallie Ghosh on 05-27-2024 Lipase [Catalytic activity/Vol] 35 U/L 13-75 [facility] Comment on above: Please note:LIPASE r evised reference range effective 22. New Lipase methodology. Expected to produce lower values than the previous assay method. NEW Reference Range: 13 - 75 U/L Lymphocytes Auto (Unsp spec) [#/Vol]Ordered By: Kallie Ghosh on 05-27-2024 Lymphocytes (Bld) [#/Vol] 2.31 10*3/uL 0.83-4.51 [facility] Lymphocytes/100 WBC Auto (Un sp spec)Ordered By: Kallie Ghosh on 05-27-2024 Lymphocytes/100 WBC (Bld) 24.2 % 19-41 [facility] MCV (mean corpuscular volume ) determinationOrdered By: Kallie Ghosh on 05-27-2024 MCV (RBC) [Entitic vol] 88.3 fL 81-99 [facility] Mean corpuscular hemoglobin (MCH) determinationOrdered By: Kallie Ghosh on 05-27-2024 MCH (RBC) [Entitic mass] 32.1 pg High 27.0-32.0 [facility] Mean corpuscular hemoglobin concentration (MCHC) determinationOrdered By: Kallie Ghosh on 05-27-2024 MCHC (RBC) [Mass/Vol] 36.4 g/dL High 32-36 [facility] Mean platelet volume determi nationOrdered By: Kallie Ghosh on 05-27-2024 Platelet mean volume (Bld) [Entitic vol] 11.0 fL 6.2-12.0 [facility] Microscopic analysis of urin e for red blood cells (RBC)Ordered By: Kallie Ghosh on 05-27-2024 Urine RBC 5-10 SEEN /hpf 0-5 [facility] Monocyte percentageOrdered B y: Kallie Ghosh on 05-27-2024 Monocytes/100 WBC (Bld) 4.1 % 0-10 [facility] Mucus LM Ql (Urine sed)Order ed By: Kallie Ghosh on 05-27-2024 Mucus Ql (Urine sed) 1+ /hpf [facility] Neutrophil percentageOrdered By: Kallie Ghosh on 05-27-2024 Neutrophils/100 WBC (Bld) 71.0 % High 47-70 [facility] Nitrite Test strip Ql (U)Ord ered By: Kallie Ghosh on 05-27-2024 Nitrite Ql (U) Negative Negative [facility] Nucleated red blood cell per centageOrdered By: Kallie Ghosh on 05-27-2024 Nucleated RBC/100 WBC (Bld) [Ratio] 0 % 0-5 [facility] Platelet countOrdered By: Lukasz Ghosh on 05-27-2024 Platelets (Bld) [#/Vol] 274 10*3/uL 150-450 [facility] Potassium (Unsp spec) [Mass/ Vol]Ordered By: Kallie Ghosh on 05-27-2024 Potassium [Moles/Vol] 3.6 mmol/L 3.3-5.1 [facility] Protein Test strip Ql (U)Ord ered By: Kallie Ghosh on 05-27-2024 Protein Ql (U) 30 mg/dl High Negative [facility] RBC Auto (Bld) [#/Vol]Ordere d By: Kallie Ghosh on 05-27-2024 RBC (Bld) [#/Vol] 5.45 10*6/uL High 4.2-5.4 [facility] Serum creatinine measurement (mass/volume)Ordered By: Kallie Ghosh on 05-27-2024 Creatinine [Mass/Vol] 0.81 mg/dL 0.70-1.20 [facility] Serum globulin measurementOr dered By: Kallie Ghosh on 05-27-2024 Globulin (S) [Mass/Vol] 3.4 g/dL 2.2-4.2 [facility] Serum glucose measurement (m ass/volume)Ordered By: Kallie Ghosh on 05-27-2024 Glucose [Mass/Vol] 127 mg/dL High 70-99 [facility] Serum or plasma alanine pena otransferase (ALT) measurementOrdered By: Kallie Ghosh on 05-27-2024 ALT [Catalytic activity/Vol] 35 U/L <35 [facility] Serum or plasma albumin shannon urement (mass/volume)Ordered By: Kallie Ghosh on 05-27-2024 Albumin [Mass/Vol] 5.1 g/dL High 3.4-4.8 [facility] Serum or plasma albumin/glob ulin mass ratioOrdered By: Kallie Ghosh on 05-27-2024 Albumin/Globulin [Mass ratio] 1.5 {ratio} 0.9-2.4 [facility] Serum or plasma alkaline kevan sphatase measurementOrdered By: Kallie Ghosh on 05-27-2024 ALP [Catalytic activity/Vol] 75 U/L 35-104 [facility] Serum or plasma calcium shannon urement (mass/volume)Ordered By: Kallie Ghosh on 05-27-2024 Calcium [Mass/Vol] 10.7 mg/dL 7.6-11.0 [facility] Serum or plasma urea nitroge n measurement (mass/volume)Ordered By: Kallie Ghosh on 05-27-2024 Urea nitrogen [Mass/Vol] 24 mg/dL High 4-19 [facility] Sodium levelOrdered By: Cate Ghosh on 05-27-2024 Sodium [Moles/Vol] 136 mmol/L 133-145 [facility] Total proteinOrdered By: Val Ghosh on 05-27-2024 Protein [Mass/Vol] 8.4 g/dL 5.9-8.4 [facility] Urate crystals LM.HPF (Urine sed) [#/Area]Ordered By: Kallie Ghosh on 05-27-2024 Urine Uric Acid Crystals 2+ /hpf [facility] Urinalysis, Completeon 05-27 AMORPHOUS 1+ URATE Normal [facility] Comment on above: Order Comment: CLEAN CATCH Performed By: #### L 400.0001 #### [facility] [address] [place], [address] Mucus Ql (Urine sed) 1+ /hpf Normal [facility] Comment on above: Order Comment: CLEAN CATCH Performed By: #### L 400.0001 #### [facility] [address] [place], [address] URIC CRYSTALS 2+ /hpf Normal [facility] Comment on above: Order Comment: CLEAN CATCH Performed By: #### L 400.0001 #### [facility] [address] [place], [address] BACTERIA 4+ /hpf Normal None Seen [facility] Comment on above: Order Comment: CLEAN CATCH Performed By: #### L 400.0001 #### [facility] [address] [place], [address] EPI,SQUAMOUS 10-25 SEEN Normal 5-10 [facility] Comment on above: Order Comment: CLEAN CATCH Performed By: #### L 400.0001 #### [facility] [address] [place], [address] RBC 5-10 SEEN Normal 0-5 [facility] Comment on above: Order Comment: CLEAN CATCH Performed By: #### L 400.0001 #### [facility] [address] [place], [address] WBC 10-25 SEEN Normal 0-5 [facility] Comment on above: Order Comment: CLEAN CATCH Performed By: #### L 400.0001 #### [facility] [address] [place], [address] Urine blood detectionOrdered By: Kallie Ghosh on 05-27-2024 Urine Occult Blood 50 /ul High Negative [facility] Urine clarityOrdered By: Val Ghosh on 05-27-2024 Clarity (U) Cloudy Clear [facility] Urine color determinationOrd ered By: Kallie Ghosh on 05-27-2024 Color (U) Yellow Yellow [facility] Urine leukocyte esterase det ection by dipstickOrdered By: Kallie Ghosh on 05-27-2024 Leukocyte esterase Test strip Ql (U) 100 /ul High Negative [facility] Urine pHOrdered By: Kallie carbone on 05-27-2024 pH (U) 6.0 [pH] 5.0 - 8.0 [facility] Urine sediment bacteria coun t by microscopy (number/high power field)Ordered By: Kallie Ghosh on 05-27-2024 Bacteria LM.HPF (Urine sed) [#/Area] 4 /[HPF] None Seen [facility] Urine specific gravity measu rementOrdered By: Kallie Ghosh on 05-27-2024 Specific gravity (U) [Rel density] 1.020 1.002-1.030 [facility] Urobilinogen Ql (U)Ordered B y: Kallie Ghosh on 05-27-2024 Urobilinogen (U) [Mass/Vol] 1 mg/dL High Normal [facility] White blood cell (WBC) count Ordered By: Kallie Ghosh on 05-27-2024 WBC (Bld) [#/Vol] 9.6 10*3/uL 4.4-11.0 [facility] White blood cell countOrdere d By: Kallie Ghosh on 05-27-2024 Urine WBC 10-25 SEEN /hpf 0-5 [facility] CNOVon 05-16-2024 CNOV Office Visit ([facility]) MERLE BRADLEY ([id number]) 1960 F Date Time Provider Department 05/16/24 10:30 AM MARYAM SALMERON During your visit today, we recorded the following information about you: Pulse Respiration Blood pressure Weight 68/minute 16/minute 112/76 83.1 kg Maryam Salmeron APRN.PA[employer]OTH OPERATOR 06/03/2024 10:27 PM [facility] Established Visit Merle Bradley CCF#: [id number] Date of Service: 05/16/2024 Primary Care Provider: Yohan Roblero, MSN, CERTIFIED ACTIVITIES DIRECTOR, ENGINEERING SPECIALIST-C FOLLOW UP VISIT Merle Bradley is a 63 year old female, who presents for neurologic evaluation following bicoronal craniotomy for clipping of distal left LUBA aneurysm 07/21/2020 complicated by delayed wound dehiscence s/p washout, drainage, removal of hardware, primary closure on 05/13/2021. PCP: Yessenia Rodriguez MD Collaborating Physician: Dr. Adilene Lino 63 year old female with PMH DM, HTN, IBS, FABIOLA, lacunar stroke (2019) who was found to have incidental left LUBA aneurysm during hospitalization for stroke. She underwent diagnostic cerebral angiogram demonstrating an irregular 4 mm left LUBA aneurysm for which she underwent bicoronal craniotomy for clipping of distal left LUBA aneurysm 07/21/[address] Lino. She developed delayed wound dehiscence and underwent IANDD, removal of hardware, and primary closure on 05/13/2021. Operative cultures grew MSSA and patient was discharged on IV oxacillin (completed 06/2021). She previously noted new incisional drainage to the right-side of her bicoronal incision starting in November 2021. She had delayed follow-up secondary to sister's cancer diagnosis in late 2021. She presented to clinic in March 2022 for wound check with plan for MRI brain and bloodwork. She underwent brain MRI and was referred to Plastic Surgery. She was lost to follow-up and had recently established with a local plastic surgeon who recommended she see neurosurgery in follow-up to discuss co-management options with plastic surgery as no local neurosurgery. She presents to clinic today in follow-up with continued draining incisional wound. She has been deemed disabled following her stroke and switched to Medicare for which she notes challenges with affording copays with specialists which has limited her follow-up. She reports continued drainage from right side of bicoronal incision with skull indentation that remains unchanged since her prior visit. She denies any recent fevers or illnesses. She notes numbness to incision. Denies new neurologic concerns. Handedness: right-handed Past Medical History: ACTIVE PROBLEM LIST Hypertension, Essential Anxiety Cva (Cerebral Vascular Accident) (Hcc) Diabetes Mellitus Type 2, Controlled, Without Complications (Hcc) Hyperlipidemia Ataxia Due to Acute Cerebrovascular Disease Obesity, Class II, Bmi 35-39.9 Intracranial Aneurysm Fabiola (Obstructive Sleep Apnea) Gerd (Gastroesophageal Reflux Disease) Irritable Bowel Syndrome With Diarrhea Back Pain Seborrheic Dermatitis Lacunar Stroke (Hcc) Hyperlipidemia Associated With Type 2 Diabetes Mellitus (Hcc) (Hcc) Hx of Craniotomy Imbalance Wound Dehiscence Subaortic Membrane Skin Ulcer of Scalp, Limited to Breakdown of Skin (Hcc) PAST SURGICAL HISTORY Procedure Laterality Date APPENDECTOMY SECTION HX COLONOSCOPY 02/16/2022 repeat in 10 years LIG/TRNSXJ FLP TUBE ABDL/VAG APPR UNI/BI PICC LINE INSERT/CONSULT 05/15/2021 PILONIDAL CYST/SINUS EXCISION 1985 TONSILLECTOMY PRIMARY/SECONDARY Allergies: Pollen Extracts Medications: Current Outpatient Medications Medication Sig nystatin (MYCOSTATIN) cream Apply to affected area two times a day. fluticasone-salmeterol HFA (ADVAIR HFA) 115-21 mcg/actuation inhaler Inhale 2 Puffs as instructed two times a day. pantoprazole DR (PROTONIX) 40 mg tablet Take 1 tablet by mouth once daily. 30 minutes before eating. albuterol HFA (PROVENTIL HFA, VENTOLIN HFA) 90 mcg/actuation inhaler Inhale 2 Puffs as instructed every 4 hours as needed for wheezing/shortness of breath. ondansetron (ZOFRAN) 4 mg tablet Take 1 tablet by mouth every 8 hours as needed for nausea/vomiting. hydrALAZINE (APRESOLINE) 50 mg tablet Take 1 tablet by mouth three times daily. metFORMIN (GLUCOPHAGE) 500 mg tablet Take 1 tablet by mouth twice daily with meals. carvedilol (COREG) 6.25 mg tablet Take 1 tablet by mouth twice daily with meals. lisinopril (ZESTRIL) 40 mg tablet Take 1 tablet by mouth daily at bedtime. amLODIPine (NORVASC) 10 mg tablet Take 1 tablet by mouth once daily. atorvastatin (LIPITOR) 40 mg tablet Take 1 tablet by mouth once daily. ketoconazole (NIZORAL) 2 % cream Apply 1 application to affected area once daily. aspirin, enteric coated (ASPIRIN, ENTERIC COATED) 81 mg EC tablet Take 81 mg by mouth once daily. CPAP/BIPAP/OTHER Type .CPA (more content not included)... Normal [facility] 05-07-2024 [facility] Telephone ([facility]) MERLE BRADLEY ([id number]) 1960 F Date Time Provider Department 05/07/24 [facility] During your visit today, we recorded the following information about you: Radha Redman 05/07/2024 12:39 PM Signed Records received via Onbase from [facility] (ph. [phone] fx. [phone]), pushed through to [employer]. Pt added to DB. Sent fax requesting images be electronically uploaded. Radha Redman F 05/07/2024 12:39 PM Signed Aisha Obregon APRN.[facility] 05/07/2024 3:22 PM Signed Direct referral to Dr. Grullon: Referring: Dr. José Miguel Bee Diagnosis: Wound repair/Calvarial defect MRI BRAIN 05/03/22: 05/03/2022 4:07 PM - Radiology, [place] In Impression IMPRESSION: Osseous irregularity of the bifrontal craniotomy bone flap, with subjacent dural enhancement. These findings are nonspecific, could relate to granulation and/or chronic infection. Otherwise no discrete abscess or subjacent acute parenchymal findings. 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 Shop Tailor: PSCB Transcribe Date/Time: May 03 2022 3:54P Dictated by : ELIZABETH ACOSTA MD This examination was interpreted and the report reviewed and electronically signed by: ELIZABETH ACOSTA MD on May 03 2022 4:05PM EST Results-Findings * * *Final Report* * * DATE OF EXAM: May 03 2022 2:46PM [facility] 0295 - MRI BRAIN WO/W IVCON / PROCEDURE REASON: multiple diagnoses * * * * Physician Interpretation * * * * EXAMINATION: MRI BRAIN WO/W IVCON HISTORY: Intracranial aneurysm. Postoperative infection, unspecified type, subsequent encounter. Acquired skull defect Postoperative wound dehiscence, initial encounter TECHNIQUE: Routine brain MRI protocol without and with contrast including diffusion and gradient echo images. MQ: [id number] Contrast: 20 mL Dotarem MRI brain 11/25/2019 COMPARISON: None. RESULT: Postsurgical change: Bifrontal craniotomy. Osseous irregularity with enhancement along the internal margin of the craniotomy, with mild diffusion signal abnormality in the bone.. Dural thickening/enhancement deep to the craniotomy. No evidence of a discrete collection. The anterior aspect of the superior sagittal sinus is shows absence of normal flow void in this region. Acute Change: There is no evidence of restricted diffusion to suggest an acute infarct. Hemorrhage: No evidence of prior parenchymal hemorrhage on the gradient echo images. Mass Lesion/ Mass Effect: No evidence of an intracranial mass or extra-axial fluid collection. No abnormal parenchymal or leptomeningeal enhancement is noted following contrast administration. No significant mass effect. Chronic Change: The white matter is within normal limits of signal intensity for age. Parenchyma: No significant volume loss for age. The brain parenchyma is otherwise within normal limits of signal intensity and morphology. Ventricles: Normal caliber and morphology. Skull Base: Hypothalamic and pituitary region are grossly normal. Craniocervical junction is normal. No significant marrow replacement process. Vasculature: Anterior aspect of the superior sagittal sinus likely occluded as mentioned above. The dural venous sinuses are otherwise patent. Susceptibility artifact in the anterior hemispheric region from prior aneurysm clipping which is otherwise not well assessed on this study. Other: The visualized paranasal sinuses and mastoid air cells are clear. The orbits and extracranial soft tissues are unremarkable. Dorina Yanes 05/07/2024 4:21 PM Signed Please sent to triage if scheduling is needed Thank you Radah Nina 05/08/2024 1:47 PM Signed Received fax from [facility] stating patient had all her care at [facility]. 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 - fluticasone-salmeterol HFA (ADVAIR HFA) 115-21 mcg/actuation inhaler Inhale 2 Puffs as instructed two times a day. - pantoprazole DR (PROTONIX) 40 mg tablet Take 1 tablet by mouth once daily. 30 minutes before eating. - albuterol HFA (PROVENTIL HFA, VENTOLIN HFA) 90 mcg/actuation inhaler Inhale 2 Puffs as instructed every 4 hours as needed for wheezing/shortness of breath. - ondansetron (ZOFRAN) 4 mg tablet Take 1 (more content not included)... Normal [facility] Plastic Surgery Visit Report on 05-03-2024 Plastic Surgery Visit Report [facility] [address], [address] [place] [address] OFFICE VISIT Date of Service: 05/03/24 MR#: [id number] Acct: [id number] Name: MERLE BRADLEY Rep #: [id number] : 1960 Provider: Dr. José Miguel Bee MD Age/Sex: 63/F [place] [facility] Status: Signed Intake Vital Signs 05/03/24 15:18 Height 5 ft 4 in Weight: 184 lb BMI 31.6 BP 105/71 Blood Pressure Location Rt brachial Position Sitting Respiration 18 Pulse 57 L Pulse Source Monitor Temp 97.7 F L Temp Source Oral Pulse Oximetry (%) 97 Oxygen Delivery Method room air Intake Visit Reasons: WOUND FROM CRAINIOTOMY Chief Complaint: wound from crainiotomy Is patient in pain?: No Allergies latex Allergy (Mild, Verified 05/03/24 15:18) Itching Medications ???Medication ???Instructions ???Recorded ???Confirmed ???Type amlodipine 10 mg tablet 10 mg PO QDAY 05/03/24 05/03/24 Hi story estradiol 0.01% (0.1 mg/gram) vaginal 05/03/24 05/03/24 History vaginal cream fluvoxamine 25 mg tablet 25 mg PO QHS 05/03/24 05/03/24 His tory lisinopril 40 mg tablet 40 mg PO QHS 05/03/24 05/03/24 His tory nystatin 100,000 unit/gram topical topical BID 05/03/24 05/03/24 Hi story cream PFSH Medical History Back problem Asthma Arthritis HPI WOUND FROM CRAINIOTOMY Details: Merle Bradley is a delightful 63 YO female with complicated past medical history of neurosurgery for a brain aneurysm with several subsequent surgeries over the last 4 years. She was following with the [facility] ([facility]). She has a draining sinus over the frontal region of her scalp where there is a depression in the soft tissue. Reports drainage every day. She is not currently established with a neurosurgeon. Reports that there is known gap in the bone of her frontal skull since her surgeries. No previous imaging or records are available at this visit from [facility]. Patient does not smoke or use nicotine products. No constitutional symptoms or recent fevers/chills/lethargy . ROS General General: Yes good health; No fatigue, fever(s) or weight loss HENMT HENMT: No rhinitis, sore throat/mouth sore, nasal congestion, contacts or glaucoma Endo Endocrine: No thyroid disease, polydipsia, heat intolerance, cold intolerance, hepatitis or excessive urine Skin Skin: No Bleeding, bruising, changing moles or suspicious lesion Musc Musculoskeletal: Yes joint pain, joint stiffness, muscle weakness and back pain; No osteoarthritis or Muscle aches/ myalgia Neuro Neurological: No headache(s), Yes lightheadedness and No numbness Cardio Cardiovascular: No chest pain, pacemaker, fatigue or shortness of breat with exertion Psych Psychiatric: Yes claustrophobia; No depression or anxiety Resp Respiratory: Yes shortness of breath, sleep apnea and asthma; No spitting up, emphysema, TB, Cough or Smoker Gastro Gastrointestinal: Yes diarrhea; No constipation, blood in stool, nausea, vomiting or abdominal bloating Owen Hematologic: No anemia, No bleeding and No abnormal bleeding Genitourinary: Yes incontinence; No urinary frequency or blood in urine Exam Details Frontal scalp with a 1 x 2 cm depression 5 cm posterior to the forehead hairline centrally. At the base there is a scab. No active drainage on my exam, but no underlying bone felt. No signs of surrounding induration/cellulitis/ fluctuance. No neck lymphadenopathy HENMT Face and sinus: normal facial exam and face symmetric Other: EOMI Sensation to light touch intact in CNV distribution Resp Effort Inspection: normal respiratory effort Coding Level of Care Code Off vis,new,level 3 Diagnoses Open scalp wound S01.00XA Assessment and Plan (No Qualifiers) Assessment and Plan (1) Open scalp wound: Status: Acute Plan: I talked to Ms Bradley about my concerns of a chronic infection/defect in her scalp/calvarium. We do not have a neurosurgeon on staff at our hospital, otherwise I would refer to them and discuss coordination for neurosurgery/plastics comanagement/reconstru ction. Since no neurosurgery here, she needs to go back to a larger center. She is not interested in following with her previous surgeons. I referred her to Dr. Cristofer Grullon, neurosurgeon at [facility] whom I've done joint cases with as an attending in plastics at [facility]. Dr. Green is an excellent surgeon and can give his opinion on the problem. Discussed with patient strict precautions for signs of worsening infection/concern need for emergent/urgent ED assistance. 05/04/24 1106 Date José Miguel Bee MD Cosigner Signature: Date (more content not included)... Normal [facility] LIPID PROFILEon 04-25-2024 Lipid 1996 panel Normal [facility] Comment on above: Result Comment: LIPI D PROFILE SEE SCANNED REPORT Performed By: #### 2 05813 #### [facility],[address] [place] [address] CBC + DIFFon 04-22-2024 Baso # 0.05 x10EE3/UL Normal 0.00 - 0.10 [facility] Comment on above: Performed By: #### 2 72837 #### [facility],[address] [place] [address] 52238 Basophils/100 WBC (Bld) 0.6 % Normal 0.0 - 2.0 [facility] Comment on above: Performed By: #### 2 40145 #### [facility],[address] [place] [address] CBC + DIFF Normal [facility] Comment on above: Result Comment: CBC- COMPLETE BLOOD COUNT Performed By: #### 2 88221 #### [facility],[address] [place] [address] EO # 0.22 x10EE3/UL Normal 0.00 - 0.50 [facility] Comment on above: Performed By: #### 2 23003 #### [facility],[address] [place] [address] 63096 Eosinophils/100 WBC (Bld) 2.8 % Normal 0.0 - 7.0 [facility] Comment on above: Performed By: #### 2 09214 #### [facility],[address] [place] [address] Erythrocyte distribution width (RBC) [Ratio] 13.4 % Normal 12.0 - 15.6 [facility] Comment on above: Performed By: #### 2 99448 #### [facility],[address] [place] [address] Hematocrit (Bld) [Volume fraction] 43.8 % Normal 34.0 - 46.0 [facility] Comment on above: Performed By: #### 2 43665 #### [facility],[address] [place] [address] 02597 Hemoglobin (Bld) [Mass/Vol] 14.8 g/dL Normal 12.0 - 16.0 [facility] Comment on above: Performed By: #### 2 99485 #### [facility],[address] [place] [address] Lymph # 2.94 x10EE3/UL High 0.80 - 2.80 [facility] Comment on above: Performed By: #### 2 11376 #### [facility],[address] [place] [address] Lymphocytes/100 WBC (Bld) 38.4 % Normal 20.0 - 45.0 [facility] Comment on above: Performed By: #### 2 23118 #### [facility],[address] [place] [address] 87325 MANUAL DIFF N/A Normal [facility] Comment on above: Performed By: #### 2 01254 #### [facility],[address] [place], [place] [id number] MCH (RBC) [Entitic mass] 31 pg Normal 27 - 33 [facility] Comment on above: Performed By: #### 2 47586 #### [facility],[address] [place], [place] [id number] MCHC 34 X10 3 Normal 32 - 36 [facility] Comment on above: Performed By: #### 2 42318 #### [facility],[address] [place] [address] 21832 MCV (RBC) [Entitic vol] 93 fL Normal 80 - 99 [facility] Comment on above: Performed By: #### 2 22363 #### [facility],[address] [place] [address] 19608 Wells # 0.41 x10EE3/UL Normal 0.20 - 1.00 [facility] Comment on above: Performed By: #### 2 08414 #### [facility],[address] [place] [address] 56632 MONOS % 5.3 % Normal 0.0 - 10.0 [facility] Comment on above: Performed By: #### 2 08965 #### [facility],[address] [place] [address] 26395 Morphology Dereck (Bld) [Interp] N/A Normal [facility] Comment on above: Performed By: #### 2 16202 #### [facility],[address] [place] [address] 05874 Neut # 4.05 x10EE3/UL Normal 1.50 - 7.10 [facility] Comment on above: Performed By: #### 2 44535 #### [facility],[address] [place] [address] 23219 Neutrophils/100 WBC (Bld) 52.8 % Normal 46.0 - 76.0 [facility] Comment on above: Performed By: #### 2 89856 #### [facility],[address] [place] [address] 26377 PLATELET 194 x10EE3/UL Normal 150 - [address] [facility] Comment on above: Performed By: #### 2 15514 #### [facility],[address] [place] [address] 17280 Platelet mean volume (Bld) [Entitic vol] 9.6 fL Normal 6.6 - 10.5 [facility] Comment on above: Result Comment: AUTO MATED DIFFERENTIAL Performed By: #### 2 54263 #### [facility],[address] [place] [address] 86698 RBC 4.74 x 10EE6/UL Normal 4.10 - 5.30 [facility] Comment on above: Performed By: #### 2 37373 #### [facility],[address] [place] [address] 72626 WBC 7.7 x 10EE3/UL Normal 4.5 - 10.8 [facility] Comment on above: Performed By: #### 2 98157 #### [facility],[address] [place] [address] 74957 CMP with eGFRon 04-22-2024 AGE 63 years Normal [facility] Comment on above: Performed By: #### 2 92432 #### [facility],[address] [place] [address] 45453 Albumin [Mass/Vol] 4.5 g/dL Normal 3.4 - 5.0 [facility] Comment on above: Performed By: #### 2 05905 #### [facility],[address] [place] [address] 90749 Albumin/Globulin [Mass ratio] 1.5 {ratio} Normal 0.9 - 1.6 [facility] Comment on above: Performed By: #### 2 29387 #### [facility],[address] [place] [address] 33948 ALK PHOS 61 U/L Normal 46 - 116 [facility] Comment on above: Performed By: #### 2 71366 #### [facility],[address] [place] [address] 16319 ALT [Catalytic activity/Vol] 35 U/L Normal 16 - 63 [facility] Comment on above: Performed By: #### 2 07480 #### [facility],[address] [place] [address] 83110 Anion gap [Moles/Vol] 13 mmol/L Normal 10 - 20 [facility] Comment on above: Performed By: #### 2 78717 #### [facility],[address] [place] [address] 63235 AST [Catalytic activity/Vol] 17 U/L Normal 13 - 39 [facility] Comment on above: Performed By: #### 2 70171 #### [facility],[address] [place] [address] 96772 B/C RATIO 28 ratio Normal 0 - 30 [facility] Comment on above: Performed By: #### 2 15619 #### [facility],[address] [place] [address] 08315 Bilirubin [Mass/Vol] 1.1 mg/dL High 0.2 - 1.0 [facility] Comment on above: Performed By: #### 2 93122 #### [facility],[address] [place] [address] 50380 Calcium [Mass/Vol] 9.1 mg/dL Normal 8.5 - 10.1 [facility] Comment on above: Performed By: #### 2 05686 #### [facility],[address] [place] [address] 13432 Chloride [Moles/Vol] 104 mmol/L Normal 98 - 107 [facility] Comment on above: Performed By: #### 2 61670 #### [facility],[address] [place] [address] 26362 CMP with eGFR Normal [facility] Comment on above: Result Comment: COMP REHENSIVE METABOLIC PANEL Performed By: #### 2 29531 #### [facility],[address] [place] [address] 81408 CO2 [Moles/Vol] 27.5 mmol/L Normal 21.0 - 32.0 [facility] Comment on above: Performed By: #### 2 02740 #### [facility],[address] [place] [address] 11776 Creatinine [Mass/Vol] 0.65 mg/dL Normal 0.55 - 1.02 [facility] Comment on above: Performed By: #### 2 33559 #### [facility],[address] [place] [address] 24500 GFR/1.73 sq M.predicted among non-blacks MDRD (S/P/Bld) [Vol rate/Area] mL/min/{1.73_m2} Normal 60 - 999 [facility] Comment on above: Performed By: #### 2 54171 #### [facility],[address] [place] [address] 35475 Result Comment: ACCO RDING TO THE NATIONAL KIDNEY DISEASE EDUCATION PROGRAM(NKDE), A NORMAL eGFR IS A VALUE GREATER THAN OR EQUAL TO 60 ML/MIN/1.73 SQ METERS. CHRONIC KIDNEY DISEASE: <60mL/MIN/1.73 SQ METERS KIDNEY FAILURE: <15mL/MIN/1.73 SQ METERS THIS TEST SHOULD ONLY BE USED FOR PATIENTS 18 YEARS OF AGE AND OLDER. Globulin (S) [Mass/Vol] 3.0 g/dL Normal 1.5 - 3.8 [facility] Comment on above: Performed By: #### 2 59295 #### [address] [address] Glucose [Mass/Vol] 88 mg/dL Normal 74 - 106 [facility] Comment on above: Performed By: #### 2 27583 #### [facility],[address] [place] [address] 75831 Potassium [Moles/Vol] 3.8 mmol/L Normal 3.5 - 5.1 [facility] Comment on above: Performed By: #### 2 72474 #### [facility],[address] [place] [address] 20044 Protein [Mass/Vol] 7.5 g/dL Normal 6.4 - 8.2 [facility] Comment on above: Performed By: #### 2 99724 #### [facility],[address] [place] [address] 47581 Sodium [Moles/Vol] 141 mmol/L Normal 136 - 145 [facility] Comment on above: Performed By: #### 2 70328 #### [facility],[address] [place] [address] 26019 Urea nitrogen [Mass/Vol] 18 mg/dL Normal 7 - 18 [facility] Comment on above: Performed By: #### 2 14771 #### [facility],[address] [place] [address] 50966 HEMOGLOBIN A1C (POM)on 04-22 Glucose [Mass/Vol] 99.7 mg/dL High 0.0 - 0.0 [facility] Comment on above: Result Comment: BLDo HEMOGLOBIN A1C REFERENCE RANGESBLDo Suggested Diagnosis HbA1c(%) HbA1C (mmol/mol Diabetic >/=6.5 >/=48 Prediabetes 5.7 - 6.4 39 - 47 Normal <5.7 <39 Performed By: #### 2 62218 #### [address] [address] HbA1c (Bld) [Mass fraction] 5.1 % Normal 0.0 - 6.5 [facility] Comment on above: Performed By: #### 2 40284 #### [address] [address] [facility] SCREENINGon 02-07-2024 CHARLIE SCREENING * * *Final Report* * * DATE OF EXAM: Feb 07 2024 11:02AM [facility] 0581 - [facility] SCREENING / PROCEDURE REASON: Encounter for screening mammogram for breast cancer * * * * Physician Interpretation * * * * RESULT: [place] [address] #[id number] - [facility] SCREENING HISTORY: Patient is 63 years old and is seen for screening and is asymptomatic in both breasts. Patient states no personal history of breast cancer. Patient states no personal history of other cancers. COMPARISON STUDIES: The present examination has been compared to a prior imaging study dated 12/25/2019 (mammogram). MAMMOGRAM TECHNIQUE: The study was acquired using full field digital technology and interpreted from soft copy. Computer-aided detection was utilized by the radiologist in the interpretation of this examination. MAMMOGRAM FINDINGS: There are scattered areas of fibroglandular density. No suspicious masses, calcifications or other abnormalities are seen in either breast. IMPRESSION: There are no suspicious mammographic findings in either breast. Technologist notes that the patient reports: left side possible pulled muscle. Some pain to lateral breast. There is no imaging correlate to the area of clinical concern. Clinical correlation and follow-up is recommended with imaging follow-up as clinically indicated. BI-RADS Category 1: Negative RISK: Based on the Tyrer-Cuzick (TC) risk assessment model, this patient has a 5.1% lifetime risk of developing breast cancer, meaning they are at average risk for developing breast cancer. However, this is only an estimate based on available history provided on the patient's questionnaire. We encourage all patients to talk with their providers about these results, further recommendations for managing breast health, and appropriate supplemental screening options if the patient has dense breast tissue. Interpreting Radiologist: Samanta Licea M.D. Electronically signed on: 02/12/2024 Shop Tailor: LISA Thomasribe Date/Time: Feb 07 2024 10:31A Dictated by: SAMANTA LICEA MD This examination was interpreted and the report reviewed and electronically signed by: SAMANTA LICEA MD on Feb 12 2024 11:32AM EST [id number] Normal [facility] 01-08-2024 CNPN Telephone (FAMDNA) MERLE BRADLEY ([id number]) 1960 F Date Time Provider Department 01/08/24 YESSENIA RODRIGUEZ [facility] During your visit today, we recorded the following information about you: Mirian Iraheta LPN 01/08/2024 5:52 PM Signed Symbicort denied by insurance. Perferred drugs are Advair HFA, Breo Ellipta, Spirica and Wixela. Pleas advise. CHRISTIAN Pennington Laura, MD 01/10/2024 10:35 AM Signed Rx sent for advair instead Javon Zimmerman MA 01/10/2024 3:58 PM Signed Patient aware Allergies As of Date: 01/08/2024 Noted Allergy Reaction POLLEN EXTRACTS 06/15/2022 14 - Other: See Comments Comments: Sneezing, itchy eyes Date Reviewed: 01/05/2024 Reviewed by: Mirian Iraheta LPN - Fully Assessed Reason for Visit: Medication Problem [65] Primary Visit Diagnosis:Bronchospasm [J98.01] Order(s):fluticasone-s almeterol HFA (ADVAIR HFA) 115-21 mcg/actuation inhalerInhale 2 Puffs as instructed two times a day.Disp: 12 gRfl: 5 Prescriptions as of 01/10/2024 - fluticasone-salmeterol HFA (ADVAIR HFA) 115-21 mcg/actuation inhaler Inhale 2 Puffs as instructed two times a day. - pantoprazole DR (PROTONIX) 40 mg tablet Take 1 tablet by mouth once daily. 30 minutes before eating. - albuterol HFA (PROVENTIL HFA, VENTOLIN HFA) 90 mcg/actuation inhaler Inhale 2 Puffs as instructed every 4 hours as needed for wheezing/shortness of breath. - ondansetron (ZOFRAN) 4 mg tablet Take 1 tablet by mouth every 8 hours as needed for nausea/vomiting. - nystatin (MYCOSTATIN) cream Apply to affected area two times a day. - hydrALAZINE (APRESOLINE) 50 mg tablet Take 1 tablet by mouth three times daily. - metFORMIN (GLUCOPHAGE) 500 mg tablet Take 1 tablet by mouth twice daily with meals. - carvedilol (COREG) 6.25 mg tablet Take 1 tablet by mouth twice daily with meals. - lisinopril (ZESTRIL) 40 mg tablet Take 1 tablet by mouth daily at bedtime. - amLODIPine (NORVASC) 10 mg tablet Take 1 tablet by mouth once daily. - atorvastatin (LIPITOR) 40 mg tablet Take 1 tablet by mouth once daily. - ketoconazole (NIZORAL) 2 % cream Apply 1 application to affected area once daily. - aspirin, enteric coated (ASPIRIN, ENTERIC COATED) 81 mg EC tablet Take 81 mg by mouth once daily. - CPAP/BIPAP/OTHER Type .CPAPSettings into a note to see current settings/supplies/DME information. - [employer]Hop ULTRA2 METER - blood sugar diagnostic (BLOOD GLUCOSE TEST) test strip Test blood sugar(s) 2 times daily. Dx: Type 2 DM - Uncontrolled E11.65 Insulin: No DX: E11.9 - Lancets lancets Test blood sugar(s) 2 times daily. Dx: Type 2 DM - Uncontrolled E11.65 Insulin: No DX:E11.9 - acetaminophen (TYLENOL) 325 mg tablet Take 2 tablets by mouth every 4 hours as needed for pain. - Ascorbic Acid 1,000 mg tablet Take 1,000 mg by mouth once daily. PRN - cholecalciferol, vitamin D3, (VITAMIN D3 ORAL) Take by mouth. 2000 international unit(s) daily - vitamin B complex (B COMPLEX ORAL) Take 1 tablet by mouth once daily. 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 disease [I6*11/25/2019 Obesity, Class II, BMI 35-39.9 [E66.812] 11/28/2019 Intracranial aneurysm [I67.1] 12/18/2019 Obesity, Class III, BMI >= 40 [E66.01] 01/07/2020 07/14/2020 FABIOLA (obstructive sleep apnea) [G47.33] GERD (gastroesophageal reflux disease) [K21.9] Irritable bowel syndrome with diarrhea [K58.0] Back pain [M54.9] Seborrheic dermatitis [L21.9] 07/20/2020 Lacunar stroke (HCC) [I63.81] 10/22/2020 Hyperlipidemia associated with type 2 diabetes *10/22/2020 Hx of craniotomy [Z98.890] 12/28/2020 Imbalance [R26.89] 12/31/2020 Wound dehiscence [T81.30XA] 05/11/2021 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 Medications Discontinued During This Encounter Prescriptions - budesonide-formoterol (SYMBICORT) 160-4.5 mcg/actuation inhaler (Discontinued) Inhale 2 Puffs as instructed two times a day. Encounter Status:Closed by JAVON ZIMMERMAN on 01/10/24 [facility] CNOVon 01-05-2024 CNOV Office Visit (FAMDNA ) MERLE BRADLEY ([id number]) 1960 F Date Time Provider Department 01/05/24 4:00 PM YESSENIA RODRIGUEZ During your visit today, we recorded the following information about you: Temperature Pulse Blood pressure Weight 98.7 degrees 63/minute 102/60 87.9 kg Height 1.632 m Mirian Iraheta LPN 01/05/2024 3:49 PM Signed [facility] BUILD[facility] LAB TEST INFORMATION [facility] BUILDING LAB HOURS: Lab is open: 7:30am to 5:00pm - , 7:30am to 4:00pm on Mon and 8am -12pm on Mon. The lab is located in [facility] on the first floor. There is a registration window at the lab, available 7 am to 3 pm Monday - Monday. If registration is unavailable at the lab, you may register at the patient registration office near the front lobby of the hospital. SCHEDULING A LAB APPOINTMENT: Laboratory appointments are recommended.Walk ins are still accepted. Call [phone] or schedule via [employer] scheduling ticket. ROUTINE LAB ORDERS 60 days after they are entered. If your lab orders , you may be required to wait in the lab while they are reinstated FUTURE ORDERS are lab tests to be completed on the ?EXPECTED? date. These orders 60 days after the expected date. STANDING ORDERS are recurring orders with an expiration date. The interval will indicate how often the test should be completed. CT / MRI / IVP If you have lab tests ordered for one of these radiology exams, please complete the blood work at least one day prior to the scheduled exam. PRESCRIPTION REFILL REQUESTS Request prescription refills through your [employer] account or contact your Pharmacy. My Chart Schedule My Appointment enables you to view your established primary care provider's open schedule and book an appointment online in real-time. This feature is available in internal medicine, family medicine, or pediatrics at any of our [facility] locations and main campus. Yessenia Rodriguez MD 01/10/2024 10:33 AM Signed Patient presents with: 6 Month Exam: Rash still, and was in the ER 12/16/23 HPI: Merle Bradley is a 63 year old female who presents to the office today for follow up. Had severe acid reflux, nausea, burning pain that started on 12/13, started vomiting after a night of drinking beer for her birthday, then went to the ER on 12/15 - given zofran, sucralfate, pantoprazole, potassium supplement - doing better now - has had bad gerd in the past, would throw up in her mouth at night, fam hx of barretts - no dysphagia, no prior EGD DM On metformin Overdue for eye exam HTN - lisinopril, hydralazine, carvedilol, amlodipine Rash on her chest and between breasts x couple months Itchy I she takes a bath Has been using nystatin, ketoconazole, and topical steroid. Uses ketoconazole under the breasts and in her bellybutton which helps Former smoker, quit 20+ years ago Was getting sob with stairs since stroke in 2019, used her friends albuterol which helps. Left aneurysm s/p craniotomy with delayed wound healing, still has open wound on right side of scalp. Supposed to see plastics, but difficulty with scheduling due to her location. Last seen by plastics in 11/2022 REVIEW OF SYSTEMS: CONSTITUTIONAL: No fevers, chills, nightsweats, unintended weight loss HEENT: Denies frequent or severe heaches, nasal congestion/sinus symptoms, problematic allergy problems. EYES: No diplopia or blurry vision. CARDIOVASCULAR: No chest pain, dyspnea, palpitations, orthopnea, PND, ankle edema. PULM: No dyspnea, unexplained cough. GI: No dysphagia/odynophagia, problematic reflux, constipation, diarrhea, changes in stool habits, hematochezia, melena. : No new urinary complaints, including dysuria, gross hematuria or pyuria. NEURO: No new balance problems, peripheral weakness/paresthesias or numbness of concern. MUSC-SKEL: No new joint pain, swelling, or erythema. PSY: No concerns regarding depression, anxiety or panic. INTEGUMENTARY: No new skin changes (rash, new or changing mole, new growth) PAST MEDICAL HISTORY Diagnosis Date Diabetes mellitus (HCC) 11/2019 GERD (gastroesophageal reflux disease) Hypertension Irritable bowel syndrome with diarrhea Lacunar stroke ([facility]) 11/2019 FABIOLA (obstructive sleep apnea) PAST SURGICAL HISTORY Procedure Laterality Date APPENDECTOMY SECTION HX COLONOSCOPY 02/16/2022 repeat in 10 years LIG/TRNSXJ FLP TUBE ABDL/VAG APPR UNI/BI PICC LINE INSERT/CONSULT 05/15/2021 PILONIDAL CYST/SINUS EXCISION 1985 TONSILLECTOMY PRIMARY/SECONDARY FAMILY HISTORY Problem Relation Age of Onset No Ocular Disease Mother Alcohol abuse Mother Cataract Father Hypertension Father Social History Tobacco Use Smoking status: Former Current packs/day: 0.00 Average packs/day: 0.3 packs/day for 21.9 years (6.6 t (more content not included)... Normal [facility] HEMOGLOBIN A1C (POC)on 10-25 HbA1c (Bld) [Mass fraction] 6.0 % 4.2 - 5.6 % [facility] CARDIAC PERF STRESS/PHARM on 10-25-2022 NM CARDIAC PERF STRESS/PHARM * * *Final Report* * * DATE OF EXAM: Oct 25 2022 2:05PM ELDER 0006 - NM CARDIAC PERF STRESS/PHARM / PROCEDURE REASON: multiple diagnoses * * * * Physician Interpretation * * * * NM CTAC Report: [facility] Date of service: 10/25/2022 12:39:22 PM CTAC interpreting physician: Jason Weathers MD PATIENT: Name: MISS MERLE BRADLEY Age: 61 years Gender: F 1. Incidental Findings from limited non-diagnostic CTAC: - No distinct coronary calcifications. * * * Final * * * ------ PATIENT: Name: MISS MERLE BRADLEY Age: 61 years Gender: F CONCLUSIONS: 1. SPECT Perfusion Study: Normal. 2. There is no scintigraphic evidence for inducible ischemia. 3. No evidence of scarred myocardium. 4. Left ventricle is normal in size. The left ventricle systolic function is normal. 5. Right ventricle is normal in size. 6. This is a low risk scan. Gated Stress IR:3D LVEF % 73 Prior Study Comparison No prior nuclear cardiology exam available for comparison. Nuclear Med Report:1-Day Gated SPECT Myocardial Perfusion with Regadenoson Stress: Myocardial perfusion imaging was performed at rest 30 minutes following the IV injection of the radiotracer. The patient received 0.4 mg of regadenoson, via rapid IV push, immediately followed by radiotracer IV. Gated post stress tomographic imaging was performed 30 to 60 minutes later. See administered radiotracer and doses below. [facility] Date of service: 10/25/2022 12:39:22 PM Ordering Physician: PATRICA LENNON. Requesting Physician: Indication: Dyspnea Interpreting physician: Estevan Garsia MD Height: 160.02 cm BSA: 2.13 m? Weight: 101.61 kg BMI: 39.7 kg/m? CT Dose-Length Product(DLP): 85.3 mGy * cm. CT Dose Reduction Employed: Yes. Exam Type: Rest Stress Radiopharm: Tc-99m Tetrofosmin Tc-99m Tetrofosmin Dosage(mCi): 15.2 49.8 Atten Correction: performed performed Stress Agent: Regadenoson 0.4mg Supply provided from [facility] Resting Blood Press: 134/74 mmHg Image Quality The overall study imaging quality was deemed to be excellent. FINDINGS: Left Ventricle Wall Motion: Stress IR:3D - All segments are normal. Rest IR:3D - Gated Stress IR:3D - Reversibility - Stress IR:3D Stress IR:3D Gated Stress IR:3D LVEF: 73 % ED Volume: 120 ml ES Volume: 32 ml TID: 0.94 Perfusion Findings Stress IR:3D - Summed Score=0 All segments demonstrate normal perfusion. Rest IR:3D - Summed Score=0 All segments demonstrate normal perfusion. Stress IR:3D Rest IR:3D Summed Score=0 Summed Score=0 LEFT VENTRICLE The left ventricle is normal in size. Left ventricular systolic function is normal. Right Ventricle The right ventricle is normal in size. Stress Test Findings: There is no scintigraphic evidence for inducible ischemia. There is no evidence of scarring. * * * Final * * * ------ Stress ECG Report: [facility] Date of service: 10/25/2022 12:39:22 PM Ordering physician: PATRICA LENNON scientific specialist: Jaclyn Gutierrez Coding Director: Carole Harris Interpreting physician: Slava Jay MD Patient name: MISS MERLE BRADLEY Age: 61 years Gender: F Height: 160.02 cm BSA: 2.13 m? Weight: 101.61 kg BMI: 39.7 kg/m? Indication: Dyspnea on exertion Stress ECG Conclusion: Conclusion: Normal Stress ECG Summary: The patient's resting heart rate was 72 bpm and blood pressure was 134/74 mmHg. The test was terminated due to end of protocol. Other symptoms during the test included SOB. The maximum heart rate was 96 bpm, which is 60% of the predicted heart rate for age. Peak blood pressure was 148/87 mmHg. The double product achieved was [address]. Medications: Last Used HYDRALAZINE CELEXA METFORMIN COREG NORVASC LIPITOR Resting ECG: Normal Sinus Rhythm Symptoms at rest: No symptoms Pharamcologic Protocol: Regadenoson Stress Exercise Table: +-----+--+---+---+ Stage HR SYS LIYAH +-----+--+---+---+ 1 90 148 87 +-----+--+---+---+ 2 96 143 79 +-----+--+---+---+ 3 95 136 87 +-----+--+---+---+ 4 82 131 72 +-----+--+---+---+ 5 87 133 86 +-----+--+---+---+ 6 83 144 79 +-----+--+---+---+ +-----+--+---+---+ HR SYS LIYAH +-----+--+---+---+ Final 96 148 87 +-----+--+---+---+ Stress Observations: Resting HR: 72 bpm Peak HR: 96 bpm (60% MPHR) Resting BP: 134 / 74 mmHg Peak BP: 148 / 87 mmHg Rate Pressure Product (RPP): 85044 Stress Exercise Observations: Reason for test termination: end of protocol, Symptoms during test: Other symptoms (more content not included)... [facility] 10-24-2022 [facility] Telephone ([facility]) MERLE BRADLEY ([id number]) 1960 F Date Time Provider Department 10/24/22 CAROLE HARRIS CD[facility]ME During your visit today, we recorded the following information about you: Carole Harris RN 10/24/2022 1:03 PM Signed Left message regarding reminder for stress test tomorrow and given instructions. Allergies As of Date: 10/24/2022 Noted Allergy Reaction POLLEN EXTRACTS 06/15/2022 14 - Other: See Comments Comments: Sneezing, itchy eyes Date Reviewed: 10/19/2022 Reviewed by: Patrica Lennon DO - Fully Assessed Reason for Visit: Reminder Call [[id number]] Prescriptions as of 10/24/2022 - hydrALAZINE (APRESOLINE) 50 mg tablet Take 1 tablet by mouth three times daily. - citalopram hydrobromide (CELEXA) 10 mg tablet Take 1 tablet by mouth once daily. - metFORMIN (GLUCOPHAGE) 500 mg tablet Take 1 tablet by mouth twice daily with meals. - carvedilol (COREG) 6.25 mg tablet Take 1 tablet by mouth twice daily with meals. - lisinopril (ZESTRIL) 40 mg tablet Take 1 tablet by mouth daily at bedtime. - amLODIPine (NORVASC) 10 mg tablet Take 1 tablet by mouth once daily. - gentamicin 0.1 % ointment Apply to wound twice a day as directed - aspirin, enteric coated (ASPIRIN, ENTERIC COATED) 81 mg EC tablet Take 81 mg by mouth once daily. - CPAP/BIPAP/OTHER Type .CPAPSettings into a note to see current settings/supplies/DME information. - atorvastatin (LIPITOR) 40 mg tablet Take 1 tablet by mouth once daily. - iv contrast (will be provided with radiology test) MRI Brain Inject, intravenously, once for 1 dose.No IV access, insert saline lock prior to beginning of sedation, infusion, injection of imaging exam.Discontinue saline lock post exam. If Pt. has a central line or IVAD, may access for administration according to line specific nursing protocol.Once exam is complete flush line and de-access according to line specific nursing protocol in the MR contrast administration guidelines link - ONETOUCH ULTRA2 METER - blood sugar diagnostic (BLOOD GLUCOSE TEST) test strip Test blood sugar(s) 2 times daily. Dx: Type 2 DM - Uncontrolled E11.65 Insulin: No DX: E11.9 - Lancets lancets Test blood sugar(s) 2 times daily. Dx: Type 2 DM - Uncontrolled E11.65 Insulin: No DX:E11.9 - acetaminophen (TYLENOL) 325 mg tablet Take 2 tablets by mouth every 4 hours as needed for pain. - Ascorbic Acid 1,000 mg tablet Take 1,000 mg by mouth once daily. PRN - cholecalciferol, vitamin D3, (VITAMIN D3 ORAL) Take by mouth. 2000 international unit(s) daily - vitamin B complex (B COMPLEX ORAL) Take 1 tablet by mouth once daily. Facility-Administered Medications as of 10/24/2022 - perflutren lipid microspheres 1.3 mL in NaCl (PF) 0.9% 10 mL injection (DEFINITY) - sodium chloride 0.9 % (flush) 10 mL (BD POSIFLUSH) - perflutren lipid microspheres 1.3 mL in NaCl (PF) 0.9% 10 mL injection (DEFINITY) - sodium chloride 0.9 % (flush) 10 mL (BD POSIFLUSH) Meds Comments as of 05/18/2021: 12/03/19 The medications are managed by this patient by: PATIENT Diya Prado, COA 05/18/21 SOC no severe interactions noted Problem List As Of Date 10/24/2022 Noted Resolved Hypertension, essential [I10] 02/13/2006 Anxiety [F41.9] 03/22/2006 Hypertensive emergency [I16.1] 11/12/2019 11/15/2019 Obesity, Class III, BMI >= 40 [E66.01] 11/12/2019 11/28/2019 CVA (cerebral vascular accident) (HCC) [I63.9] 11/12/2019 Diabetes mellitus type 2, controlled, without c*11/14/2019 Hyperlipidemia [E78.5] 11/14/2019 Ataxia due to acute cerebrovascular disease [I6*11/25/2019 Obesity, Class II, BMI 35-39.9 [E66.9] 11/28/2019 Intracranial aneurysm [I67.1] 12/18/2019 Obesity, Class III, BMI >= 40 [E66.01] 01/07/2020 07/14/2020 FABIOLA (obstructive sleep apnea) [G47.33] GERD (gastroesophageal reflux disease) [K21.9] Irritable bowel syndrome with diarrhea [K58.0] Back pain [M54.9] Seborrheic dermatitis [L21.9] 07/20/2020 Lacunar stroke (HCC) [I63.81] 10/22/2020 Hyperlipidemia associated with type 2 diabetes *10/22/2020 Hx of craniotomy [Z98.890] 12/28/2020 Imbalance [R26.89] 12/31/2020 Wound dehiscence [T81.30XA] 05/11/2021 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 Encounter Status:Closed by CAROLE HARRIS on 10/24/22 [facility] NITRIC OXIDE, EXHALEDon - [facility] XR CHEST 2V FRONTAL/LATon XR CHEST 2V FRONTAL/LAT * * *Final Repor t* * * DATE OF EXAM: Aug 17 2022 9:18AM MDX [id number] - XR CHEST 2V FRONTAL/LAT / PROCEDURE REASON: R06.09-GONCALVES (dyspnea on exertion) * * * * Physician Interpretation * * * * EXAMINATION: CHEST RADIOGRAPH (2 VIEW FRONTAL and LATERAL) CLINICAL HISTORY: GONCALVES (dyspnea on exertion) MQ: XC2_6 EXAM DATE/TIME: 08/17/2022 9:18 AM COMPARISON: No relevant prior studies available. RESULT: Lines, tubes, and devices: None. Lungs and pleura: No consolidation. No lung mass. No pleural effusion. No pneumothorax. Cardiomediastinal silhouette: Normal cardiomediastinal silhouette. Bones and soft tissues: Mild degenerative changes of the thoracic spine. IMPRESSION: No acute radiographic abnormality. Shop Tailor: PSCB Transcribe Date/Time: Aug 17 2022 1:43P Dictated by : SMITH CROWDER MD This examination was interpreted and the report reviewed and electronically signed by: SMITH CROWDER MD on Aug 17 2022 1:43PM EST [id number] [facility] CNOVon 07-27-2022 CNOV Office Visit (PLWDMR ) MERLE BRADLEY ([id number]) 1960 F Date Time Provider Department 07/27/22 11:30 AM AMYETTAANIYAH GOMEZ PLWDMR During your visit today, we recorded the following information about you: Temperature Pulse Blood pressure 97.5 degrees 72/minute 118/79 Christy Velasco RN 07/27/2022 11:54 AM Signed Nursing Documentation Pertinent Medical History: DM, HTN, FABIOLA, lacunar stroke 2019 and incidental finding of brain aneurysm Wound Etiology according to patient: craniotomy July 2020 for clipping of brain aneurysm Wound dehiscence, IANDD and hardware removal May 2021 AND IV antibiotics; Wound re-opened 2021 Patient arrived via: ambulatory with [employer] Home Care Company/Nursing Facility: N/A Consent captured for debridement per and good until Special Instructions: Exam chair Anticoagulant Therapy: ASA 81mg Living Situation (ie... 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 Provider seeing patient: Aniyah Irizarry CNP ____ WOUND ASSESSMENT: Refer to Provider's Wound Assessment Note VASCULAR ASSESSMENT BY PROVIDER: N/A CHF History: denies EDEMA: N/A wound located on scalp Right foot: Right calf: Left foot : Left Calf: Other: MEASUREMENTS: in CM wound located on scalp Right Calf: Right Ankle: Left Calf: Left Ankle: Length: WOUND PHOTOGRAPHY: Yes x 1 DEBRIDEMENT PROCEDURE BY PROVIDER: Anesthetic Used: N/A Wound # 1 Other procedure: N/A Specimen collected: N/A WOUND TREATMENT PER MD ORDER: Wounds cleansed by mechanical debridement to allow provider to visualize wound base WOUND # 1 - LOCATION: Right Frontal Scalp (2021) L: 0.3 cm x W: 0.3 cm x D: Dry, stable scab Debridement by Provider: N/A Cleansed with: NS Applied to yarelis-wound skin: Vaseline Applied to wound bed: Vaseline Covered and secured with: N/A COMPRESSION: N/A SPECIAL NEEDS: Coordination of care N/A Emotional support N/A OR 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 - Continue aggressive nutritional support for optimal wound healing. - Follow-up with the [facility] Plastic Surgery team in [place]. EDUCATION: The patient/family was instructed how to cleanse the wound(s). Visual demonstration on how to apply the dressing with teach back method. Signs AND symptoms of infection were reviewed: Increased redness, swelling, pain, green/yellow drainage, fever and/or chills would all need to be evaluated by a Physician. Patient received typed home-going wound care instructions and has expressed intent to comply. OTHER EDUCATION: Provider discussed PRN follow-up. Education performed regarding lymphedema/edema: Elevation of extremity above the heart for 30 minutes three times daily and as needed Exercise such as writing the ABC's with your toes in the air, walking and/or calf pumps Wearing compression as ordered by provider Diet controlling of sodium as instructed by provider Use of medication to help control edema. - UNIVERSAL PROTOCOL / SAFETY CHECKLIST: N/A - Current HBOT Status: Active or Complete - see screening below WOUND CENTER HYPERBARIC OXYGEN THERAPY SCREENING 1. Is the patient diabetic? (If No, skip to question 5) Yes 2. Does the patient have a lower extremity wound? No 3. Is there exposed/involved tendon or bone? No 4. Has the wound been present for 30 days? Yes If Yes to ALL questions above, consult the Hyperbaric Center 5. Has the patient been diagnosed with osteomyelitis? Yes 6. Has the patient had a previous skin graft or flap at the wound? No 7. Has the patient had or been offered vascular intervention/evaluatio n? No 8. Does the patient have a wound at an amputation site? No 9. Has the patient had radiation therapy at the site of the problem? No If Yes to ANY of questions 5-9, consult the Hyperbaric Center Christy Velasco RN/LT Aniyah Irizarry APRN.PAINT BOOTH OPERATOR 07/27/2022 12:38 PM Signed WOUND CENTER PROGRESS NOTE PATIENT NAME: Merle Bradley DATE OF FOLLOW UP: 07/27/2022 REASON FOR FOLLOW UP: scalp wound HISTORY OF PRESENT ILLNESS: Merle Bradley is a 61 year old y/o female w/ PMH HTN, DMII, IBS, FABIOLA, lacunar stroke (2019), s/p bicoronal craniotomy for clipping of distal left LUBA aneurysm (07/21/2020who presents for wou (more content not included)... [facility] 07-13-2022 [facility] Office Visit (PLWDMR ) MERLE BRADLEY ([id number]) 1960 F Date Time Provider Department 07/13/22 1:00 PM ANIYAH IRIZARRY During your visit today, we recorded the following information about you: Temperature Pulse Respiration Blood pressure 98.4 degrees 92/minute 22/minute 127/84 Janette Da Silva RN 07/13/2022 1:39 PM Addendum Nursing Documentation Pertinent Medical History: DM, HTN, FABIOLA, lacunar stroke 2019 and incidental finding of brain aneurysm Wound Etiology according to patient: craniotomy July 2020 for clipping of brain aneurysm Wound dehiscence, IANDD and hardware removal May 2021 AND IV antibiotics; Wound re-opened 2021 Patient arrived via: ambulatory with cane Home Care Company/Nursing Facility: N/A Consent captured for debridement per and good until Special Instructions: exam chair Anticoagulant Therapy: ASA 81mg Living Situation (ie... 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 Provider seeing patient: Aniyah Irizarry CNP ____ WOUND ASSESSMENT: Refer to Provider's Wound Assessment Note VASCULAR ASSESSMENT BY PROVIDER: N/A CHF History: denies EDEMA: N/A wound located on scalp Right foot: Right calf: Left foot : Left Calf: Other: MEASUREMENTS: in CM wound located on scalp Right Calf: Right Ankle: Left Calf: Left Ankle: Length: WOUND PHOTOGRAPHY: YES x 1 DEBRIDEMENT PROCEDURE BY PROVIDER: Anesthetic Used: n/a Wound # 1 Other procedure: N/A Specimen collected: WOUND TREATMENT PER MD ORDER: Wounds cleansed by mechanical debridement to allow provider to visualize wound base WOUND # 1 LOCATION: Right frontal scalp (2021) L: 0.4 cm x W: 0.3 cm x D: scabbed Debridement by Provider: selective Post Debridement Measurements: L: 0.5 cm x W: 0.5 cm x D: 0.1 cm Cleansed with: Vashe' Applied to yarelis-wound skin: Applied to wound bed: collagen wound gel, adaptic, 4x4 folded Covered and secured with: rolled stockinet as a headband Other: COMPRESSION: N/A SPECIAL NEEDS: Coordination of care N/A Emotional support N/A OR set-up N/A 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 Visual demonstration on how to apply the dressing with teach back method. Signs AND symptoms of infection were reviewed: Increased redness, swelling, pain, green/yellow drainage, fever and/or chills would all need to be evaluated by a Physician. Patient received typed home-going wound care instructions and has expressed intent to comply. OTHER EDUCATION: New wound care Education performed regarding lymphedema/edema: Elevation of extremity above the heart for 30 minutes three times daily and as needed Exercise such as writing the ABC's with your toes in the air, walking and/or calf pumps Wearing compression as ordered by provider Diet controlling of sodium as instructed by provider Use of medication to help control edema. - UNIVERSAL PROTOCOL / SAFETY CHECKLIST: N/A - Current HBOT Status: Active or Complete - see screening below WOUND CENTER HYPERBARIC OXYGEN THERAPY SCREENING 1. Is the patient diabetic? (If No, skip to question 5) Yes 2. Does the patient have a lower extremity wound? No 3. Is there exposed/involved tendon or bone? No 4. Has the wound been present for 30 days? Yes If Yes to ALL questions above, consult the Hyperbaric Center 5. Has the patient been diagnosed with osteomyelitis? Yes 6. Has the patient had a previous skin graft or flap at the wound? No 7. Has the patient had or been offered vascular intervention/evaluatio n? No 8. Does the patient have a wound at an amputation site? No 9. Has the patient had radiation therapy at the site of the problem? No If Yes to ANY of questions 5-9, consult the Hyperbaric Center Janette Da Silva RN 07/13/2022 1:24 PM Addendum WOUND CARE INSTRUCTIONS- Merle Bradley Wound location: Right frontal scalp 1. Wash your hands with soap and water before and after wound care. 2. Gather all supplies needed. 3. Apply Vashe soak: apply Vashe moistened gauze to the wound AND allow to soak 5-10 min, remove while gently wiping the wound clean 4. Apply collagen gel followed with a single layer (more content not included)... [facility] 06-29-2022 [facility] Office Visit (PLWDMR ) MERLE BRADLEY ([id number]) 1960 F Date Time Provider Department 06/29/22 2:00 PM ANIYAH IRIZARRY [facility] During your visit today, we recorded the following information about you: Temperature Pulse Blood pressure 98.2 degrees 85/minute 128/79 Audrey Sands RN 06/29/2022 4:04 PM Addendum Nursing Documentation Pertinent Medical History: DM, HTN, FABIOLA, lacunar stroke 2019 and incidental finding of brain aneurysm Wound Etiology according to patient: craniotomy July 2020 for clipping of brain aneurysm Wound dehiscence, IANDD and hardware removal May 2021 AND IV antibiotics; Wound re-opened 2021 Patient arrived via: ambulatory with [employer] Care Company/Nursing Facility: N/A Consent captured for debridement per and good until Special Instructions: exam chair Anticoagulant Therapy: ASA 81mg Living Situation (ie... 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 Provider seeing patient: Aniyah ReyesluíspeterADAN ____ WOUND ASSESSMENT: Refer to Provider's Wound Assessment Note VASCULAR ASSESSMENT BY PROVIDER: N/A CHF History: denies EDEMA: N/A wound located on scalp Right foot: Right calf: Left foot : Left Calf: Other: MEASUREMENTS: in CM wound located on scalp Right Calf: Right Ankle: Left Calf: Left Ankle: Length: WOUND PHOTOGRAPHY: YES x1 DEBRIDEMENT PROCEDURE BY PROVIDER: Anesthetic Used:n/a Wound # 1 Other procedure: N/A Specimen collected: WOUND TREATMENT PER MD ORDER: Wounds cleansed by mechanical debridement to allow provider to visualize wound base WOUND # 1 LOCATION: Right frontal scalp (2021) L: 0.4 cm x W: 0.4 cm x D: 0.4 cm Debridement by Provider: N/A Post Debridement Measurements: L: cm x W: cm x D: cm Cleansed with: Vashe Applied to yarelis-wound skin: Applied to wound bed: Eliza Covered and secured with: N/A Other: COMPRESSION: N/A SPECIAL NEEDS: Coordination of care N/A Emotional support N/A OR set-up N/A 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 EDUCATION: The patient/family was instructed how to cleanse the wound(s). Visual demonstration on how to apply the dressing with teach back method. Signs AND symptoms of infection were reviewed: Increased redness, swelling, pain, green/yellow drainage, fever and/or chills would all need to be evaluated by a Physician. Patient received typed home-going wound care instructions and has expressed intent to comply. OTHER EDUCATION: Education performed regarding lymphedema/edema: Elevation of extremity above the heart for 30 minutes three times daily and as needed Exercise such as writing the ABC's with your toes in the air, walking and/or calf pumps Wearing compression as ordered by provider Diet controlling of sodium as instructed by provider Use of medication to help control edema. - UNIVERSAL PROTOCOL / SAFETY CHECKLIST: N/A - Current HBOT Status: Active or Complete - see screening below WOUND CENTER HYPERBARIC OXYGEN THERAPY SCREENING 1. Is the patient diabetic? (If No, skip to question 5) Yes 2. Does the patient have a lower extremity wound? No 3. Is there exposed/involved tendon or bone? No 4. Has the wound been present for 30 days? Yes If Yes to ALL questions above, consult the Hyperbaric Center 5. Has the patient been diagnosed with osteomyelitis? Yes 6. Has the patient had a previous skin graft or flap at the wound? No 7. Has the patient had or been offered vascular intervention/evaluatio n? No 8. Does the patient have a wound at an amputation site? No 9. Has the patient had radiation therapy at the site of the problem? No If Yes to ANY of questions 5-9, consult the Hyperbaric Center Audrey Sands RN/DARLIN Sands RN 06/29/2022 2:50 PM Addendum WOUND CARE INSTRUCTIONS- Merle Bradley Wound location: Right frontal scalp 1. Wash your hands with soap and water before and after wound care. 2. Gather all supplies needed. 3. Apply Vashe soak: apply Vashe moistened gauze to the wound AND allow to soak 5-10 min, remove while gently wiping the wound clean 4. Apply saline moistened Eliza (collagen) to the wound base. 5.. Amie (more content not included)... [facility] 06-24-2022 [facility] MERLE BRADLEY ([id number]) 1960 F Date Time Provider Department [facility] During your visit today, we recorded the following information about you: Carole Harris RN 06/24/2022 2:24 PM Signed Left message regarding reminder for stress test on Monday and given instructions. Allergies As of Date: 06/24/2022 Noted Allergy Reaction POLLEN EXTRACTS 06/15/2022 14 - Other: See Comments Comments: Sneezing, itchy eyes Date Reviewed: 06/13/2022 Reviewed by: Javon Zimmerman Ma - Fully Assessed Reason for Visit: Reminder Call [[id number]] Prescriptions as of 06/24/2022 - doxycycline monohydrate (MONODOX) 100 mg capsule Take 1 capsule by mouth twice daily for 7 days. - gentamicin 0.1 % ointment Apply to wound twice a day as directed - aspirin, enteric coated (ASPIRIN, ENTERIC COATED) 81 mg EC tablet Take 81 mg by mouth once daily. - CPAP/BIPAP/OTHER Type .CPAPSettings into a note to see current settings/supplies/DME information. - atorvastatin (LIPITOR) 40 mg tablet Take 1 tablet by mouth once daily. - iv contrast (will be provided with radiology test) MRI Brain Inject, intravenously, once for 1 dose.No IV access, insert saline lock prior to beginning of sedation, infusion, injection of imaging exam.Discontinue saline lock post exam. If Pt. has a central line or IVAD, may access for administration according to line specific nursing protocol.Once exam is complete flush line and de-access according to line specific nursing protocol in the MR contrast administration guidelines link - hydrALAZINE (APRESOLINE) 50 mg tablet Take 1 tablet by mouth three times daily. - ONETOUCH ULTRA2 METER - blood sugar diagnostic (BLOOD GLUCOSE TEST) test strip Test blood sugar(s) 2 times daily. Dx: Type 2 DM - Uncontrolled E11.65 Insulin: No DX: E11.9 - Lancets lancets Test blood sugar(s) 2 times daily. Dx: Type 2 DM - Uncontrolled E11.65 Insulin: No DX:E11.9 - acetaminophen (TYLENOL) 325 mg tablet Take 2 tablets by mouth every 4 hours as needed for pain. - metFORMIN (GLUCOPHAGE) 500 mg tablet Take 1 tablet by mouth twice daily with meals. - lisinopril (ZESTRIL, PRINIVIL) 40 mg tablet Take 1 tablet by mouth daily at bedtime. - carvedilol (COREG) 6.25 mg tablet Take 1 tablet by mouth twice daily with meals. - amLODIPine (NORVASC) 10 mg tablet Take 1 tablet by mouth once daily. - Ascorbic Acid 1,000 mg tablet Take 1,000 mg by mouth once daily. PRN - cholecalciferol, vitamin D3, (VITAMIN D3 ORAL) Take by mouth. 2000 international unit(s) daily - vitamin B complex (B COMPLEX ORAL) Take 1 tablet by mouth once daily. Facility-Administered Medications as of 06/24/2022 - perflutren lipid microspheres 1.3 mL in NaCl (PF) 0.9% 10 mL injection (DEFINITY) - sodium chloride 0.9 % (flush) 10 mL (BD POSIFLUSH) Meds Comments as of 05/18/2021: 12/03/19 The medications are managed by this patient by: PATIENT RASHAD Curran 05/18/21 SOC no severe interactions noted Problem List As Of Date 06/24/2022 Noted Resolved Hypertension, essential [I10] 02/13/2006 Anxiety [F41.9] 03/22/2006 Hypertensive emergency [I16.1] 11/12/2019 11/15/2019 Obesity, Class III, BMI >= 40 [E66.01] 11/12/2019 11/28/2019 CVA (cerebral vascular accident) (HCC) [I63.9] 11/12/2019 Diabetes mellitus type 2, controlled, without c*11/14/2019 Hyperlipidemia [E78.5] 11/14/2019 Ataxia due to acute cerebrovascular disease [I6*11/25/2019 Obesity, Class II, BMI 35-39.9 [E66.9] 11/28/2019 Intracranial aneurysm [I67.1] 12/18/2019 Obesity, Class III, BMI >= 40 [E66.01] 01/07/2020 07/14/2020 FABIOLA (obstructive sleep apnea) [G47.33] GERD (gastroesophageal reflux disease) [K21.9] Irritable bowel syndrome with diarrhea [K58.0] Back pain [M54.9] Seborrheic dermatitis [L21.9] 07/20/2020 Lacunar stroke (HCC) [I63.81] 10/22/2020 Hyperlipidemia associated with type 2 diabetes *10/22/2020 Hx of craniotomy [Z98.890] 12/28/2020 Imbalance [R26.89] 12/31/2020 Wound dehiscence [T81.30XA] 05/11/2021 Encounter Status:Closed by CAROLE HARRIS on 06/24/22 [facility] MERLE BRADLEY ([id number]) 1960 F Date Time Provider Department 06/20/22 ANIYAH IRIZARRY During your visit today, we recorded the following information about you: Aniyah Irizarry APRN.ADAN 06/20/2022 5:01 PM Signed TCT to pt to discuss wound culture results. + MSSA. Doxycycline 100mg twice a day x 7 days. Change wound care tx to Gentamicin 0.1% ointment twice a day until next wound center visit on 06/29/2022. Pt verbalized understanding. All questions answered. Aniyah Irizarry CNP Allergies As of Date: 06/20/2022 Noted Allergy Reaction POLLEN EXTRACTS 06/15/2022 14 - Other: See Comments Comments: Sneezing, itchy eyes Date Reviewed: 06/13/2022 Reviewed by: Javon Zimmerman Ma - Fully Assessed Reason for Visit: Results [95] Orders [681] Order(s):doxycycline monohydrate (MONODOX) 100 mg capsuleTake 1 capsule by mouth twice daily for 7 days.Disp: 14 capsuleRfl: 0 gentamicin 0.1 % ointmentApply to wound twice a day as directedDisp: 15 gRfl: 1 Prescriptions as of 06/20/2022 - doxycycline monohydrate (MONODOX) 100 mg capsule Take 1 capsule by mouth twice daily for 7 days. - gentamicin 0.1 % ointment Apply to wound twice a day as directed - aspirin, enteric coated (ASPIRIN, ENTERIC COATED) 81 mg EC tablet Take 81 mg by mouth once daily. - CPAP/BIPAP/OTHER Type .CPAPSettings into a note to see current settings/supplies/DME information. - atorvastatin (LIPITOR) 40 mg tablet Take 1 tablet by mouth once daily. - iv contrast (will be provided with radiology test) MRI Brain Inject, intravenously, once for 1 dose.No IV access, insert saline lock prior to beginning of sedation, infusion, injection of imaging exam.Discontinue saline lock post exam. If Pt. has a central line or IVAD, may access for administration according to line specific nursing protocol.Once exam is complete flush line and de-access according to line specific nursing protocol in the MR contrast administration guidelines link - hydrALAZINE (APRESOLINE) 50 mg tablet Take 1 tablet by mouth three times daily. - [place] InnoVenturesTOUCH ULTRA2 METER - blood sugar diagnostic (BLOOD GLUCOSE TEST) test strip Test blood sugar(s) 2 times daily. Dx: Type 2 DM - Uncontrolled E11.65 Insulin: No DX: E11.9 - Lancets lancets Test blood sugar(s) 2 times daily. Dx: Type 2 DM - Uncontrolled E11.65 Insulin: No DX:E11.9 - acetaminophen (TYLENOL) 325 mg tablet Take 2 tablets by mouth every 4 hours as needed for pain. - metFORMIN (GLUCOPHAGE) 500 mg tablet Take 1 tablet by mouth twice daily with meals. - lisinopril (ZESTRIL, PRINIVIL) 40 mg tablet Take 1 tablet by mouth daily at bedtime. - carvedilol (COREG) 6.25 mg tablet Take 1 tablet by mouth twice daily with meals. - amLODIPine (NORVASC) 10 mg tablet Take 1 tablet by mouth once daily. - Ascorbic Acid 1,000 mg tablet Take 1,000 mg by mouth once daily. PRN - cholecalciferol, vitamin D3, (VITAMIN D3 ORAL) Take by mouth. 2000 international unit(s) daily - vitamin B complex (B COMPLEX ORAL) Take 1 tablet by mouth once daily. Facility-Administered Medications as of 06/20/2022 - perflutren lipid microspheres 1.3 mL in NaCl (PF) 0.9% 10 mL injection (DEFINITY) - sodium chloride 0.9 % (flush) 10 mL (BD POSIFLUSH) Meds Comments as of 05/18/2021: 12/03/19 The medications are managed by this patient by: PATIENT Diya Prado, COA 05/18/21 SOC no severe interactions noted Problem List As Of Date 06/20/2022 Noted Resolved Hypertension, essential [I10] 02/13/2006 Anxiety [F41.9] 03/22/2006 Hypertensive emergency [I16.1] 11/12/2019 11/15/2019 Obesity, Class III, BMI >= 40 [E66.01] 11/12/2019 11/28/2019 CVA (cerebral vascular accident) (HCC) [I63.9] 11/12/2019 Diabetes mellitus type 2, controlled, without c*11/14/2019 Hyperlipidemia [E78.5] 11/14/2019 Ataxia due to acute cerebrovascular disease [I6*11/25/2019 Obesity, Class II, BMI 35-39.9 [E66.9] 11/28/2019 Intracranial aneurysm [I67.1] 12/18/2019 Obesity, Class III, BMI >= 40 [E66.01] 01/07/2020 07/14/2020 FABIOLA (obstructive sleep apnea) [G47.33] GERD (gastroesophageal reflux disease) [K21.9] Irritable bowel syndrome with diarrhea [K58.0] Back pain [M54.9] Seborrheic dermatitis [L21.9] 07/20/2020 Lacunar stroke (HCC) [I63.81] 10/22/2020 Hyperlipidemia associated with type 2 diabetes *10/22/2020 Hx of craniotomy [Z98.890] 12/28/2020 Imbalance [R26.89] 12/31/2020 Wound dehiscence [T81.30XA] 05/11/2021 Prescriptions ordered this encounter Disp Refills Start End DOXYCYCLINE MONOHYDRATE 100 MG CAPSU* 14 c* 0 06/20/2022 06/27/2022 Route: ORAL Sig: Take 1 capsule by mouth twice daily for 7 days. GENTAMICIN 0.1 % TOPICAL OINTMENT 15 g 1 06/20/2022 Sig: Apply to wound twice a day as directed Encounter Status:Closed by ANIYAH IRIZARRY on 06/20/22 [facility] Bacteria Wnd Culton 06-16-19 Bacteria identified Cx Nom (Wound) ORGANISM ID: 1 Moderate Staphylococcus aureus ORGANISM ID: 2 Rare Coagulase negative staphylococcus No further workup GRAM STAIN: Few Gram positive cocci No Polymorphonuclear Leukocytes ORGANISM ID: 1 (STAPHYLOCOCCUS AUREUS) -- ANTIBIOTIC INTERPRETATION OLEG STATUS REFERENCE RANGE -- Oxacillin S <=0.25 F Susceptible <=2 , Resistant >2 Oxacillin-susceptible staphylococci are susceptible to other penicilllinase-stable penicillins, beta-lactam/beta-lacta armando inhibitor combinations, anti-staphylococcal cephems, and carbapenems. Gentamicin S <=0.5 F Susceptible <=4 , Intermediate >4 , Resistant >8 Erythromycin S <=0.25 F Susceptible <=0.5 , Intermediate >.5 , Resistant >4 Clindamycin S 0.25 F Susceptible <=0.5 , Intermediate >.5 , Resistant >2 Trimeth sulfameth S <=10 F Susceptible <=40 , Resistant >40 Vancomycin S 1 F Susceptible <=2 , Intermediate >2 , Resistant >8 Rifampin S <=0.5 F Susceptible <=1 , Intermediate >1 , Resistant >2 Rifampin should not be used alone for antimicrobial therapy. Tetracycline S <=1 F Susceptible <=4 , Intermediate >4 , Resistant >8 Doxycycline S <=0.5 F Susceptible <=4 , Intermediate >4 , Resistant >8 Abnormal [facility] Comment on above: Performed By: #### 6 462-6 ####[facility] LABCLIA [id number] [address] [place] CNOVon 06-15-2022 CNOV Office Visit (PLWDMR ) MERLE BRADLEY ([id number]) 1960 F Date Time Provider Department 06/15/22 8:00 AM ANIYAH IRIZARRYWDMR During your visit today, we recorded the following information about you: Temperature Pulse Blood pressure 98.3 degrees 80/minute 112/74 Joann Hayes RN 06/15/2022 9:08 AM Signed Nursing Documentation Pertinent Medical History: DM, HTN, FABIOLA, lacunar stroke 2019 and incidental finding of brain aneurysm Wound Etiology according to patient: craniotomy July 2020 for clipping of brain aneurysm Wound dehiscence, IANDD and hardware removal May 2021 AND IV antibiotics; Wound re-opened 2021 Patient arrived via: ambulatory with [employer] [facility]/Nursing Facility: N/A Consent captured for debridement per and good until Special Instructions: exam chair Anticoagulant Therapy: ASA 81mg Living Situation (ie... 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 Provider seeing patient: Aniyah ReyesluíspeterADAN ____ WOUND ASSESSMENT: Refer to Provider's Wound Assessment Note VASCULAR ASSESSMENT BY PROVIDER: N/A CHF History: denies EDEMA: N/A wound located on scalp Right foot: Right calf: Left foot : Left Calf: Other: MEASUREMENTS: in CM wound located on scalp Right Calf: Right Ankle: Left Calf: Left Ankle: Length: WOUND PHOTOGRAPHY: YES x 2 DEBRIDEMENT PROCEDURE BY PROVIDER: Anesthetic Used: 2% lidogel applied by Teena Sands RN per provider Wound # 1 Other procedure: N/A Specimen collected: OKSANA 06/15/22 WOUND TREATMENT PER MD ORDER: Wounds cleansed by mechanical debridement to allow provider to visualize wound base WOUND # 1 LOCATION: Right frontal scalp (2021) L: 0.4 cm x W: 0.4 cm x D: 0.3cm Debridement by Provider: N/A Post Debridement Measurements: L: cm x W: cm x D: cm Cleansed with: Vashe Applied to yarelis-wound skin: Applied to wound bed: Eliza Covered and secured with: N/A Other: COMPRESSION: N/A SPECIAL NEEDS: Coordination of care N/A Emotional support N/A OR set-up N/A 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 EDUCATION: The patient/family was instructed how to cleanse the wound(s). Visual demonstration on how to apply the dressing with teach back method. Signs AND symptoms of infection were reviewed: Increased redness, swelling, pain, green/yellow drainage, fever and/or chills would all need to be evaluated by a Physician. Patient received typed home-going wound care instructions and has expressed intent to comply. OTHER EDUCATION: Provider discussed need for wound culture today; discussed wound care: cleansing and dressing with collagen; nutrional needs discussed and sign/symptoms infection reviewed. Education performed regarding lymphedema/edema: Elevation of extremity above the heart for 30 minutes three times daily and as needed Exercise such as writing the ABC's with your toes in the air, walking and/or calf pumps Wearing compression as ordered by provider Diet controlling of sodium as instructed by provider Use of medication to help control edema. - UNIVERSAL PROTOCOL / SAFETY CHECKLIST: N/A - Current HBOT Status: Active or Complete - see screening below WOUND CENTER HYPERBARIC OXYGEN THERAPY SCREENING 1. Is the patient diabetic? (If No, skip to question 5) Yes 2. Does the patient have a lower extremity wound? No 3. Is there exposed/involved tendon or bone? No 4. Has the wound been present for 30 days? Yes If Yes to ALL questions above, consult the Hyperbaric Center 5. Has the patient been diagnosed with osteomyelitis? Yes 6. Has the patient had a previous skin graft or flap at the wound? No 7. Has the patient had or been offered vascular intervention/evaluatio n? No 8. Does the patient have a wound at an amputation site? No 9. Has the patient had radiation therapy at the site of the problem? No If Yes to ANY of questions 5-9, consult the Hyperbaric Center Joann Hayes RN/dotty Hayes RN 06/15/2022 8:58 AM Addendum WOUND CARE INSTRUCTIONS- Merle A Heinly Wound location: Right frontal scalp 1. Wash your hands with soap and water before and after wound c (more content not included)... Normal [facility] MRI BRAIN WO/W IVCONon 05-03 MRI BRAIN WO/W IVCON * * *Final Report* * * DATE OF EXAM: May 03 2022 2:46PM [facility] 0[facility] - MRI BRAIN WO/W IVCON / PROCEDURE REASON: multiple diagnoses * * * * Physician Interpretation * * * * EXAMINATION: MRI BRAIN WO/W IVCON HISTORY: Intracranial aneurysm. Postoperative infection, unspecified type, subsequent encounter. Acquired skull defect Postoperative wound dehiscence, initial encounter TECHNIQUE: Routine brain MRI protocol without and with contrast including diffusion and gradient echo images. MQ: [id number] Contrast: 20 mL Dotarem MRI brain 11/25/2019 COMPARISON: None. RESULT: Postsurgical change: Bifrontal craniotomy. Osseous irregularity with enhancement along the internal margin of the craniotomy, with mild diffusion signal abnormality in the bone.. Dural thickening/enhancement deep to the craniotomy. No evidence of a discrete collection. The anterior aspect of the superior sagittal sinus is shows absence of normal flow void in this region. Acute Change: There is no evidence of restricted diffusion to suggest an acute infarct. Hemorrhage: No evidence of prior parenchymal hemorrhage on the gradient echo images. Mass Lesion/ Mass Effect: No evidence of an intracranial mass or extra-axial fluid collection. No abnormal parenchymal or leptomeningeal enhancement is noted following contrast administration. No significant mass effect. Chronic Change: The white matter is within normal limits of signal intensity for age. Parenchyma: No significant volume loss for age. The brain parenchyma is otherwise within normal limits of signal intensity and morphology. Ventricles: Normal caliber and morphology. Skull Base: Hypothalamic and pituitary region are grossly normal. Craniocervical junction is normal. No significant marrow replacement process. Vasculature: Anterior aspect of the superior sagittal sinus likely occluded as mentioned above. The dural venous sinuses are otherwise patent. Susceptibility artifact in the anterior hemispheric region from prior aneurysm clipping which is otherwise not well assessed on this study. Other: The visualized paranasal sinuses and mastoid air cells are clear. The orbits and extracranial soft tissues are unremarkable. IMPRESSION: Osseous irregularity of the bifrontal craniotomy bone flap, with subjacent dural enhancement. These findings are nonspecific, could relate to granulation and/or chronic infection. Otherwise no discrete abscess or subjacent acute parenchymal findings. 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 Shop Tailor: ZEE Transcribe Date/Time: May 03 2022 3:54P Dictated by : ELIZABETH ACOSTA MD This examination was interpreted and the report reviewed and electronically signed by: ELIZABETH ACOSTA MD on May 03 2022 4:05PM EST [id number] [facility] NURSING PROGon 05-03-2022 NURSING PROG HNO ID: [id number] Author: Praveena Nava RN Service: Radiology Author Type: Registered Nurse Type: Nursing Progress Note Filed: 05/03/2022 2:04 PM Note Text: Radiology Service Progress Note DATE OF SERVICE: May 03, 2022 TIME: 2:03 PM PATIENT WEIGHT: 226LBS PATIENT IDENTITY VERIFICATION COMPLETED USING TWO (2) STANDARD IDENTIFIERS: Name and Date of confirmed by patient verbally and Name and Date of confirmed by identification band. FALL SCREENING: Has the patient had 2 falls in the last year or 1 fall with injury or currently using an Ambulatory Assistive Device (Walker, Cane, Wheelchair, Crutches, etc.)? No PATIENT GENDER DATA: Female. status: : No status: NO. ALLERGIES: Reviewed and unchanged CONTRAST ALLERGY: No EXAM: MRI - see MRI note IV SITE: Ambulatory: A peripheral IV was started in the Left antecubital site with a Angio cath: 22 gauge. IV SITE APPEARANCE: Clean,Dry and Intact SIGNATURE: Praveena Nava RN PATIENT NAME: Merle Bradley DATE: May 03, 2022 TIME: 2:03 PM Normal [facility] Basic metabolic 2000 panelon 04-05-2022 Anion gap [Moles/Vol] 11 mmol/L Normal - [facility] Comment on above: Order Comment: Speci men Type: BLOOD SPECIMENOrdering Facility: [facility] Address: [address] [place], [place] [id number] Performed By: #### 2 4321-2, 58245-0 ####[facility]ATORYCLIA [id number] [place] [address] [place] Calcium [Mass/Vol] 9.7 mg/dL Normal 8.5-10.2 [facility] Comment on above: Order Comment: Speci men Type: BLOOD SPECIMENOrdering Facility: [facility] Address: [address] [address] Performed By: #### 2 4321-2, 73221-5 ####[facility] LABORATORYCLIA [id number] [place] [address] [place] Chloride [Moles/Vol] 105 mmol/L Normal 97-105 [facility] Comment on above: Order Comment: Speci men Type: BLOOD SPECIMENOrdering Facility: [facility] Address: [address] [place] [address] Performed By: #### 2 4321-2, 14840-8 ####[facility]ORATORYCLIA [id number] [place] [address] [place] CO2 [Moles/Vol] 22 mmol/L Normal 22-30 [facility] Comment on above: Order Comment: Speci men Type: BLOOD SPECIMENOrdering Facility: [facility] Address: [address] [place] [address] Performed By: #### 2 4321-2, 68828-4 ####[facility]ORATORYCLIA [id number] [address] [place] Creatinine [Mass/Vol] 0.65 mg/dL Normal 0.58-0.96 [facility] Comment on above: Order Comment: Speci men Type: BLOOD SPECIMENOrdering Facility: [facility] Address: [address] [place] [address] Performed By: #### 2 4321-2, 03968-3 ####[facility]ORATORYCLIA [id number] [address] ESTIMATED GLOMERULAR FILTRATION RATE 102 mL/min/1.73m??? Normal >=60 [facility] Comment on above: Order Comment: Speci men Type: BLOOD SPECIMENOrdering Facility: [facility] Address: [address] [place] [address] Result Comment: Shanda mated Glomerular Filtration Rate (eGFR) is calculated using the 2020 CKD-EPI creatinine equation. This equation utilizes serum creatinine, sex, and age as parameters. The creatinine assay has traceable calibration to isotope dilution-mass spectrometry. Refer to KDIGO guidelines for clinical interpretation. In patients with unstable renal function, e.g. those with acute kidney injury, the eGFR may not accurately reflect actual GFR. Performed By: #### 2 4321-2, 02476-5 ####[facility]ATORYCLIA [id number] [place] [address] [place] Glucose [Mass/Vol] 132 mg/dL High 74-99 [facility] Comment on above: Order Comment: Jessica ruth Type: BLOOD SPECIMENOrdering Facility: [facility] Address: [address] [place], [place] [id number] Result Comment: The [place] Diabetes Association (ADA) provides guidance for cutoff values for fasting glucose and random glucose. The ADA defines fasting as no caloric intake for at least 8 hours. Fasting plasma glucose results between 100 to 125 mg/dL indicate increased risk for diabetes (prediabetes). Fasting plasma glucose results greater than or equal to 126 mg/dL meet the criteria for diagnosis of diabetes. In the absence of unequivocal hyperglycemia, results should be confirmed by repeat testing. In a patient with classic symptoms of hyperglycemia or hyperglycemic crisis, random plasma glucose results greater than or equal to 200 mg/dL meet the criteria for diagnosis of diabetes. Reference: Standards of Medical Care in Diabetes 2016, [place] [employer] Association. Diabetes Care. 2016.39(Suppl 1). Performed By: #### 2 432-, 57913-9 ####[facility]ORATORYCLIA [id number] [place] [id number] [place] Potassium [Moles/Vol] 4.2 mmol/L Normal 3.7-5.1 [facility] Comment on above: Order Comment: Jessica ruth Type: BLOOD SPECIMENOrdering Facility: [facility] Address: [address] [id number] Performed By: #### 2 4321-2, 05437-7 ####[facility]ATORYCLIA [id number] [place] [id number] [place] Sodium [Moles/Vol] 138 mmol/L Normal 136-144 [facility] Comment on above: Order Comment: Speci men Type: BLOOD SPECIMENOrdering Facility: [facility] Address: [address] [place] [id number] Performed By: #### 2 4321-2, 02354-4 ####[facility] LABORATORYCLIA [id number] [address] STATES OF [facility] Urea nitrogen [Mass/Vol] 13 mg/dL Normal 7-21 [facility] Comment on above: Order Comment: Speci men Type: BLOOD SPECIMENOrdering Facility: [facility] Address: [address] [place] [id number] Performed By: #### 2 4321-2, 55033-3 ####[facility]ORATORYCLIA [id number] [address] [place] Anion gap [Moles/Vol] 11 mmol/L 9 - 18 mmol/L [facility] Calcium [Mass/Vol] 9.7 mg/dL 8.5 - 10. 2 mg/dL [facility] Chloride [Moles/Vol] 105 mmol/L 97 - 10 5 mmol/L [facility] CO2 [Moles/Vol] 22 mmol/L 22 - 30 mmol/L [facility] Creatinine [Mass/Vol] 0.65 mg/dL 0.58 - 0.96 mg/dL [facility] Estimated Glomerular Filtration Rate 102 mL/min/1.73m >=60 mL/min/1.73m [facility] Glucose [Mass/Vol] 132 mg/dL High 74 - 99 mg/dL [facility] Potassium [Moles/Vol] 4.2 mmol/L 3.7 - 5.1 mmol/L [facility] Sodium [Moles/Vol] 138 mmol/L 136 - 144 mmol/L [facility] Urea nitrogen [Mass/Vol] 13 mg/dL 7 - 21 mg/dL [facility] CBC W Auto Differential pane l (Bld)on 04-05-2022 Basophils (Bld) [#/Vol] 0.04 10*3/uL Normal <0.11 [facility] Comment on above: Order Comment: Speci men Type: BLOOD SPECIMENOrdering Facility: [facility] Address: [address] [place] [place] [address] Performed By: #### 5 7021-8 ####[facility] LABORATORYCLIA [id number] [address] Basophils/100 WBC (Bld) 0.5 % Normal [facility] Comment on above: Order Comment: Speci men Type: BLOOD SPECIMENOrdering Facility: [facility] Address: [address] [place] [address] Performed By: #### 5 7021-8 ####[facility]ORATORYCLIA [id number] [address] [place] Differential cell count method Nom (Bld) Auto Normal [facility] Comment on above: Order Comment: Speci men Type: BLOOD SPECIMENOrdering Facility: [facility] Address: [address] [place] [address] Performed By: #### 5 7021-8 ####[facility] LABORATORYCLIA [id number] [place] [address] [place] Eosinophils (Bld) [#/Vol] 0.18 10*3/uL Normal <0.46 [facility] Comment on above: Order Comment: Speci men Type: BLOOD SPECIMENOrdering Facility: [facility] Address: [address] [place] [address] Performed By: #### 5 7021-8 ####[facility] LABORATORYCLIA [id number] [address] Eosinophils/100 WBC (Bld) 2.1 % Normal [facility] Comment on above: Order Comment: Speci men Type: BLOOD SPECIMENOrdering Facility: [facility] Address: [address] [place] [address] Performed By: #### 5 7021-8 ####[facility] LABORATORYCLIA [id number] [address] [place] Erythrocyte distribution width (RBC) [Ratio] 13.4 % Normal 11.5-15.0 [facility] Comment on above: Order Comment: Speci men Type: BLOOD SPECIMENOrdering Facility: [facility] Address: [address] [place] [address] Performed By: #### 5 7021-8 ####[facility] LABORATORYCLIA [id number] [address] [place] Hematocrit (Bld) [Volume fraction] 42.8 % Normal 36.0-46.0 [facility] Comment on above: Order Comment: Speci men Type: BLOOD SPECIMENOrdering Facility: [facility] Address: [address] [place] [address] Performed By: #### 5 7021-8 ####[facility] LABORATORYCLIA [id number] [address] [place] Hemoglobin (Bld) [Mass/Vol] 14.8 g/dL Normal 11.5-15.5 [facility] Comment on above: Order Comment: Speci men Type: BLOOD SPECIMENOrdering Facility: [facility] Address: [address] [place] [address] Performed By: #### 5 7021-8 ####[facility] LABORATORYCLIA [id number] [place] [address] [place] Immature granulocytes (Bld) [#/Vol] 0.04 10*3/uL Normal <0.10 [facility] Comment on above: Order Comment: Speci men Type: BLOOD SPECIMENOrdering Facility: [facility] Address: [address] [place] [address] Performed By: #### 5 7021-8 ####[facility] LABORATORYCLIA [id number] [address] [place] Immature granulocytes/100 WBC (Bld) 0.5 % Normal [facility] Comment on above: Order Comment: Speci men Type: BLOOD SPECIMENOrdering Facility: [facility] Address: [address] [place] [address] Performed By: #### 5 7021-8 ####YANES LABORATORYCLIA [id number] [place] [address] [facility] [place] Lymphocytes (Bld) [#/Vol] 4.23 10*3/uL High 1.00-4.00 [facility] Comment on above: Order Comment: Speci men Type: BLOOD SPECIMENOrdering Facility: [facility] Address: [address] [address] Performed By: #### 5 7021-8 ####YANES LABORATORYCLIA [id number] [address] Lymphocytes/100 WBC (Bld) 48.3 % Normal [facility] Comment on above: Order Comment: Speci men Type: BLOOD SPECIMENOrdering Facility: [facility] Address: [address] [place] [address] Performed By: #### 5 7021-8 ####YANES LABORATORYCLIA [id number] [address] MCH (RBC) [Entitic mass] 29.8 pg Normal 26.0-34.0 [facility] Comment on above: Order Comment: Speci men Type: BLOOD SPECIMENOrdering Facility: [facility] Address: [address] [place] [address] Performed By: #### 5 7021-8 ####YANES LABORATORYCLIA [id number] [address] MCHC (RBC) [Mass/Vol] 34.6 g/dL Normal 30.5-36.0 [facility] Comment on above: Order Comment: Speci men Type: BLOOD SPECIMENOrdering Facility: [facility] Address: [address] [place] [address] Performed By: #### 5 7021-8 ####YANES LABORATORYCLIA [id number] [address] MCV (RBC) [Entitic vol] 86.3 fL Normal 80.0-100.0 [facility] Comment on above: Order Comment: Speci men Type: BLOOD SPECIMENOrdering Facility: [facility] Address: [address] [place] [address] Performed By: #### 5 7021-8 ####YANES LABORATORYCLIA [id number] [address] Monocytes (Bld) [#/Vol] 0.49 10*3/uL Normal <0.87 [facility] Comment on above: Order Comment: Speci men Type: BLOOD SPECIMENOrdering Facility: [facility] Address: [address] [address] Performed By: #### 5 7021-8 ####YANES LABORATORYCLIA [id number] [address] [place] Monocytes/100 WBC (Bld) 5.6 % Normal [facility] Comment on above: Order Comment: Speci men Type: BLOOD SPECIMENOrdering Facility: [facility] Address: [address] [place] [address] Performed By: #### 5 7021-8 ####YANES LABORATORYCLIA [id number] [place] [address] [place] Neutrophils (Bld) [#/Vol] 3.78 10*3/uL Normal 1.45-7.50 [facility] Comment on above: Order Comment: Speci men Type: BLOOD SPECIMENOrdering Facility: [facility] Address: [address] [place] [address] Performed By: #### 5 7021-8 ####YANES LABORATORYCLIA [id number] [address] [place] Neutrophils/100 WBC (Bld) 43.0 % Normal [facility] Comment on above: Order Comment: Speci men Type: BLOOD SPECIMENOrdering Facility: [facility] Address: [address] [place] [address] Performed By: #### 5 7021-8 ####YANES LABORATORYCLIA [id number] [place] [address] [place] Nucleated RBC (Bld) [#/Vol] 10*3/uL Normal <0.01 [facility] Comment on above: Order Comment: Speci men Type: BLOOD SPECIMENOrdering Facility: [facility] Address: [address] [place] [address] Performed By: #### 5 7021-8 ####YANES LABORATORYCLIA [id number] [place] [address] [facility] [place] Nucleated RBC/100 WBC (Bld) [Ratio] 0.0 /100 WBC Normal [facility] Comment on above: Order Comment: Speci men Type: BLOOD SPECIMENOrdering Facility: [facility] Address: [address] [place] [address] Performed By: #### 5 7021-8 ####YANES LABORATORYCLIA [id number] [address] [place] Platelet mean volume (Bld) [Entitic vol] 10.9 fL Normal 9.0-12.7 [facility] Comment on above: Order Comment: Speci men Type: BLOOD SPECIMENOrdering Facility: [facility] Address: [address] [place] [address] Performed By: #### 5 7021-8 ####YANES LABORATORYCLIA [id number] [place] [address] [place] Platelets (Bld) [#/Vol] 270 10*3/uL Normal 150-400 [facility] Comment on above: Order Comment: Speci men Type: BLOOD SPECIMENOrdering Facility: [facility] Address: [address] [place] [address] Performed By: #### 5 7021-8 ####YANES LABORATORYCLIA [id number] [place] [address] [place] RBC (Bld) [#/Vol] 4.96 10*6/uL Normal 3.90-5.20 [facility] Comment on above: Order Comment: Speci men Type: BLOOD SPECIMENOrdering Facility: [facility] Address: [address] [address] Performed By: #### 5 7021-8 ####YANES LABORATORYCLIA [id number] [place] [address] [place] WBC (Bld) [#/Vol] 8.76 10*3/uL Normal 3.70-11.00 [facility] Comment on above: Order Comment: Speci men Type: BLOOD SPECIMENOrdering Facility: [facility] Address: [address] [place] [address] Performed By: #### 5 7021-8 ####YANES LABORATORYCLIA [id number] [place] [address] [place] CRP SerPl HS-mCncon 04-05-19 23 CRP High sensitivity method [Mass/Vol] 1.6 mg/L Normal <3.1 [facility] Comment on above: Order Comment: Speci men Type: BLOOD SPECIMENOrdering Facility: [facility] Address: [address] [place] [address] Result Comment: hsCR P < 1.0 mg/L, relative risk is low hsCRP 1.0-3.0 mg/L, relative risk is average hsCRP > 3.0 mg/L, relative risk is high Reference: Sophia TA, Paula GA, Domo RW, et al. Markers of Inflammation and Cardiovascular Disease. Application to Clinical and Public Health Practice. A Statement for Healthcare Professionals from the Centers for Disease Control and Prevention and the [place] [employer]. Circulation 2003;107:499-511. Performed By: #### 3 0522-7, 45272-2 ####[facility] [id number] [place] [address] [place] ESR Westergren method (Bld) [Velocity]on 04-05-2022 ESR (Bld) [Velocity] 2 mm/h Normal 0-20 [facility] Comment on above: Order Comment: Meghai faraz Type: BLOOD SPECIMENOrdering Facility: [facility] Address: [address] [place] [address] Performed By: #### 4 537-7 ####[facility] [id number] [place] [address] [place] HbA1c (Bld)on 04-05-2022 Average glucose Estimated from glycated hemoglobin (Bld) [Mass/Vol] 128 mg/dL [facility] HbA1c (Bld) [Mass fraction] 6.1 % High 4.3 - 5.6 % [facility] Average glucose Estimated from glycated hemoglobin (Bld) [Mass/Vol] 128 mg/dL Normal [facility] Comment on above: Order Comment: Meghai faraz Type: BLOOD SPECIMENOrdering Facility: [facility] Address: [address] [place] [address] Result Comment: eAG: (Estimated average glucose) is a calculated value from HgbA1c and is entry level sales representative of the average blood glucose level in the last 2-3 month period. Performed By: #### 5 5454-3 ####[facility] LABCLIA [id number] [place] [address] [place] HbA1c (Bld) [Mass fraction] 6.1 % High 4.3-5.6 [facility] Comment on above: Order Comment: Jessica ruth Type: BLOOD SPECIMENOrdering Facility: [facility] Address: [address] [address] Result Comment: Amer [place] Diabetes Association guidelines indicate that patients with HgbA1c in the range 5.7-6.4% are at increased risk for development of diabetes, and intervention by lifestyle modification may be beneficial. HgbA1c greater or equal to 6.5% is considered diagnostic of diabetes. Performed By: #### 5 5454-3 ####[facility] LABCLIA [id number] [address] [place] Lipid 1996 panelon 3 Cholesterol [Mass/Vol] 116 mg/dL Normal <200 [facility] Comment on above: Order Comment: Jessica ruth Type: BLOOD SPECIMENOrdering Facility: [facility] Address: [address] [address] Result Comment: <200 mg/dL, Desirable 200-239 mg/dL, Borderline high >239 mg/dL, High Performed By: #### 2 4321-2, 48445-8 ####[facility] LABORATORYCLIA [id number] [address] OF [facility] Cholesterol in HDL [Mass/Vol] 50 mg/dL Normal >39 [facility] Comment on above: Order Comment: Jessica ruth Type: BLOOD SPECIMENOrdering Facility: [facility] Address: [address] [address] Result Comment: 40-5 9 mg/dL, Acceptable >59 mg/dL, High: Negative risk factor for coronary heart disease <40 mg/dL, Low: Positive risk factor for coronary heart disease Performed By: #### 2 4321-2, 38610-2 ####YANES LABORATORYCLIA [id number] [address] Cholesterol in LDL [Mass/Vol] 38 mg/dL Normal <100 [facility] Comment on above: Order Comment: Speci men Type: BLOOD SPECIMENOrdering Facility: [facility] Address: [address] [place] [address] Result Comment: <100 mg/dL, Optimal 100-129 mg/dL, Near optimal/above optimal 130-159 mg/dL, Borderline high 160-189 mg/dL, High >189 mg/dL, Very high Secondary prevention optimal LDL Cholesterol levels are recommended to be < 70 mg/dL Performed By: #### 2 4321-2, 38545-2 ####YANES LABORATORYCLIA [id number] [address] Cholesterol in LDL/Cholesterol in HDL [Mass ratio] 0.76 {ratio} Normal <2.54 [facility] Comment on above: Order Comment: Meghai faraz Type: BLOOD SPECIMENOrdering Facility: [facility] Address: [address] [place] [address] Result Comment: Refe rence: 1. National Cholesterol Education Program ATP III Guideline At-A-Glance Quick Desk Reference: National Heart, Lung, and Blood [place]. National Institutes of Health. 2001: NIH Publication No. 01-3305. 2. An International Atherosclerosis Society position paper: global recommendations for the management of dyslipidemia: executive summary, Atherosclerosis. 2014: 232(2):410-413. Performed By: #### 2 432-2, 55498-0 ####YAN[facility] LABORATORYCLIA [id number] [address] Cholesterol in VLDL [Mass/Vol] 28 mg/dL Normal <30 [facility] Comment on above: Order Comment: Meghai faraz Type: BLOOD SPECIMENOrdering Facility: [facility] Address: [address] [place] [address] Performed By: #### 2 4321-2, 24035-5 ####YANES LABORATORYCLIA [id number] [address] [place] Cholesterol non HDL [Mass/Vol] 66 mg/dL Normal <130 [facility] Comment on above: Order Comment: Speci men Type: BLOOD SPECIMENOrdering Facility: [facility] Address: [address] [place] [address] Result Comment: <130 mg/dL, Optimal 130-159 mg/dL, Near optimal/above optimal 160-189 mg/dL, Borderline high 190-219 mg/dL, High >219 mg/dL, Very high Secondary prevention optimal non HDL Cholesterol levels are recommended to be <100 mg/dL Performed By: #### 2 4321-2, 48947-6 ####YANES LABORATORYCLIA [id number] [address] Cholesterol.total/Tata sterol in HDL [Mass ratio] 2.32 {ratio} Normal <5.10 [facility] Comment on above: Order Comment: Speci men Type: BLOOD SPECIMENOrdering Facility: [facility] Address: [address] [place] [address] Performed By: #### 2 4321-2, 27668-2 ####YANES LABORATORYCLIA [id number] [address] FASTING TIME 12 hrs Normal [facility] Comment on above: Order Comment: Speci men Type: BLOOD SPECIMENOrdering Facility: [facility] Address: [address] [place] [address] Performed By: #### 2 4321-2, 43322-9 ####YANES LABORATORYCLIA [id number] [address] Triglyceride [Mass/Vol] 140 mg/dL Normal <150 [facility] Comment on above: Order Comment: Speci men Type: BLOOD SPECIMENOrdering Facility: [facility] Address: [address] [place] [address] Result Comment: <150 mg/dL, Normal 150-199 mg/dL, Borderline high 200-499 mg/dL, High >499 mg/dL, Very high Performed By: #### 2 4321-2, 14038-2 ####YANES LABORATORYCLIA [id number] [address] [place] Cholesterol [Mass/Vol] 116 mg/dL <200 mg/dL [facility] Cholesterol in HDL [Mass/Vol] 50 mg/dL >39 mg/dL [facility] Cholesterol in LDL [Mass/Vol] 38 mg/dL <100 mg/dL [facility] Cholesterol in LDL/Cholesterol in HDL [Mass ratio] 0.76 {ratio} <2.54 [facility] Cholesterol in VLDL [Mass/Vol] 28 mg/dL <30 mg/dL [facility] Cholesterol non HDL [Mass/Vol] 66 mg/dL <130 mg/dL [facility] Cholesterol.total/Tata sterol in HDL [Mass ratio] 2.32 {ratio} <5.10 [facility] Fasting Time 12 hrs [facility] Triglyceride [Mass/Vol] 140 mg/dL <150 mg/dL [facility] Prealb SerPl-mCncon 04-05-19 Prealbumin [Mass/Vol] 30 mg/dL Normal 17-36 [facility] Comment on above: Order Comment: Speci men Type: BLOOD SPECIMENOrdering Facility: [facility] Address: [address] [place] [address] Performed By: #### 3 0522-7, 76886-5 ####[facility] LABCLIA [id number] [place] [address] [place] ANES POSTPROC EVALon 022 ANES POSTPROC EVAL HNO ID: [id number] Author: Deepa Lees MD Service: ? Author Type: Anesthesiologist Type: Anesthesia Postprocedure Evaluation Filed: 02/16/2022 9:39 AM Note Text: POST ANESTHESIA EVALUATION NOTE : 1960 Procedure Summary Date: 02/16/22 Room / Location: [facility] Anesthesia Start: 0830 Anesthesia Stop: 0900 Procedure: COLONOSCOPY SCREENING Diagnosis: Screening for colon cancer (Screening for colorectal malignant neoplasm) Scheduled Providers: Dominick Mendoza MD; Kathi Colmenares APRN.AGRICULTURAL EQUIPMENT DESIGN ENGINEER; Deepa Lees MD Responsible Provider: Deepa Lees MD Anesthesia Type: MAC ASA Status: 3 Anesthesia Type: MAC Last Vitals Vitals Value Taken Time BP 114/75 02/16/22 0930 Temp 36.2 ?C (97.2 ?F) 02/16/22 09 Pulse 65 02/16/22 0932 Resp 19 02/16/22 09 SpO2 95 % 02/16/22931 Vitals shown include unvalidated device data. Post Anesthesia Patient Status Patient Evaluation: PACU. PACU/ICU Patient Condition: stable. Anticipated Disposition: phase 2 then home. Neurological Status: aware and responsive. Pulmonary Status: breathing comfortably on room air Airway Control: returned to baseline unsupported. Cardiovascular Status: stable. Pain Management: clinically adequate - multimodal analgesia pain management approach Postoperative Hydration: acceptable. Intraoperative Events: no significant anesthesia events Post Operative Nausea/Vomiting Status: no significant post operative nausea or vomiting Recommendation: continue current plan of care. Anesthesia Observations No Documentation SIGNATURE: Deepa Lees MD PATIENT NAME: Merle Bradley DATE: February 16, 2022 TIME: 9:39 AM CSN: [id number] Normal [facility] ANES PRE-OPon 02-16-2022 ANES PRE-OP HNO ID: [id number] Author: Deepa Lees MD Service: ? Author Type: Anesthesiologist Type: Anesthesia Preprocedure Evaluation Filed: 02/16/2022 8:08 AM Note Text: ANESTHESIOLOGY DAY OF SURGERY NOTE : 1960 Procedure Information Date/Time: 02/16/22 09 Scheduled providers: Dominick Mendoza MD; Kathi Colmenares APRN.AGRICULTURAL EQUIPMENT DESIGN ENGINEER; Deepa Lees MD Procedure: COLONOSCOPY SCREENING Location: [facility] Estimated body mass index is 38.45 kg/m? as calculated from the following: Height as of 12/08/21: 162.6 cm (5' 4). Weight as of 12/08/21: 101.6 kg (224 lb). Most recent hematocrit and potassium results: Hematocrit 40.8 06/21/2021 Potassium 4.2 05/18/2021 Relevant Problems ANESTHESIA (+) FABIOLA (obstructive sleep apnea) CARDIO (+) Hypertension, essential (+) Intracranial aneurysm ENDO (+) Diabetes mellitus type 2, controlled, without complications (HCC) GI (+) GERD (gastroesophageal reflux disease) NEURO-PSYCH (+) CVA (cerebral vascular accident) (HCC) PULMONARY (+) FABIOLA (obstructive sleep apnea) I - PHYSICAL EVALUATION AIRWAY Patient intubated: No. Tracheostomy tube not present Mallampati: II. TM distance: >3 FB. Neck ROM: full ROM without neurological symptoms. Mouth opening: adequate. Short neck: no. Thick neck: no Dang present: no DENTAL Dental findings: missing tooth/teeth. Additional exam findings: yes. CARDIOVASCULAR Rhythm: regular Rate: normal PULMONARY Breath sounds clear to auscultation. ABDOMINAL Obese: obesity present. II - ANESTHESIA PLAN ASA Score: 3 Anesthetic Plan: MAC The patient is not a current smoker. NPO Status: adequate Beta Naldo Monitoring Plan Monitoring plan: standard ASA. Post Procedure Analgesic Plan Postoperative analgesic plan: multimodal analgesia. Informed Consent Anesthetic risks, benefits, alternatives, personnel and consent discussed: yes. Patient / Responsible Democrat agrees to proceed: yes Patient / Surrogate agrees to blood products: blood products not planned DNR status not reviewed with patient and/or family prior to surgery. Significant changes in the patient condition since the History and Physical, not otherwise documented in primary service progress note: no. Potential Anesthesia issues that may suggest increased risk of complications or contraindication to planned procedure: none. Vitals Value Taken Time BP 131/79 02/16/22 0759 Pulse 75 02/16/22 075 Resp 18 02/16/22758 Temp 36.3 ?C (97.3 ?F) 02/16/22 075 SpO2 96 % 02/16/22 075 Outpatient Medications as of 02/16/2022 Medication Sig - hydrALAZINE (APRESOLINE) 50 mg tablet Take 1 tablet by mouth three times daily. - lisinopril (ZESTRIL, PRINIVIL) 40 mg tablet Take 1 tablet by mouth daily at bedtime. - amLODIPine (NORVASC) 10 mg tablet Take 1 tablet by mouth once daily. - peg 3350-Electrolytes (GOLYTELY) 236-22.74-6.74 -5.86 gram suspension Refer to printed prep instructions from your provider. - ONETOUCH ULTRA2 METER - blood sugar diagnostic (BLOOD GLUCOSE TEST) test strip Test blood sugar(s) 2 times daily. Dx: Type 2 DM - Uncontrolled E11.65 Insulin: No DX: E11.9 - Lancets lancets Test blood sugar(s) 2 times daily. Dx: Type 2 DM - Uncontrolled E11.65 Insulin: No DX:E11.9 - acetaminophen (TYLENOL) 325 mg tablet Take 2 tablets by mouth every 4 hours as needed for pain. - methocarbamol (ROBAXIN) 750 mg tablet Take 1 tablet by mouth three times daily as needed for muscle spasm, pain with chewing. (Patient not taking: No sig reported) - ondansetron orally disintegrating (ZOFRAN ODT) 4 mg disintegrating tablet Dissolve 1 tablet by mouth every 8 hours as needed for nausea/vomiting. (Patient not taking: Reported on 12/08/2021) - metFORMIN (GLUCOPHAGE) 500 mg tablet Take 1 tablet by mouth twice daily with meals. - carvedilol (COREG) 6.25 mg tablet Take 1 tablet by mouth twice daily with meals. - atorvastatin (LIPITOR) 80 mg tablet Take 1 tablet by mouth once daily. - aspirin 81 mg chewable tablet Take 81 mg by mouth once daily. - sodium chloride (NaCl) 0.9% injection solution Inject 10 mL intravenously as directed. Flush with 10ml before and after dose. Flush with 10ml before and 20ml after lab draws. flush unused lumen(s) daily with 10ml. Flush all lumens with 10ml before and after TPN infusions. - Ascorbic Acid 1,000 mg tablet Take 1,000 mg by mouth once daily. - cholecalciferol, vitamin D3, (VITAMIN D3 ORAL) Take by mouth. 2000 international unit(s) daily - aspirin 81 mg chewable tablet Take 1 tablet by mouth once daily. - vitamin B complex (B COMPLEX ORAL) Take 1 tablet by mouth once daily. Facility-Administered Medications as of 02/16/2022 Medication Dose Route Frequency - lactated ringers iv infusion 30 mL/hr INTRAVENOUS CONTINUOUS I have interviewed and examined the patient. I have reviewed the medical record and/or the pre-anesthesia evaluation, pertinen (more content not included)... Normal [facility] COLONOSCOPY SCREENINGon [facility] Colonoscopyon 02-16-2022 Colonoscopy [facility] Patient Name: Merle Bradley Procedure Date: 02/16/2022 8:26 AM Date of : 1960 Admit Type: Outpatient Age: 61 Room: [facility] Gender: Female Note Status: Finalized Attending MD: Dominick Mendoza MD Procedure: Colonoscopy Indications: Screening for colorectal malignant neoplasm Providers: Dominick Mendoza MD Patient Profile: This is a 61 year old female. Refer to note in patient chart for documentation of history and physical. Last Colonoscopy: none. The patient's first colonoscopy is today. Referring Physician: Yessenia Rodriguez MD (Referring MD) Medicines: See the Anesthesia note for documentation of the administered medications Complications: No immediate complications. Requesting Provider: Procedure: Pre-Anesthesia Assessment: - Prior to the procedure, a History and Physical was performed, and patient medications and allergies were reviewed. The patient's tolerance of previous anesthesia was also reviewed. The risks and benefits of the procedure and the sedation options and risks were discussed with the patient. All questions were answered, and informed consent was obtained. Prior Anticoagulants: The patient has taken no anticoagulant or antiplatelet agents except for aspirin. ASA Grade Assessment: III - A patient with severe systemic disease. After reviewing the risks and benefits, the patient was deemed in satisfactory condition to undergo the procedure. After I obtained informed consent, the scope was passed under direct vision. Throughout the procedure, the patient's blood pressure, pulse, and oxygen saturations were monitored continuously. The was introduced through the anus and advanced to 5 cm into the ileum. The colonoscopy was performed without difficulty. The patient tolerated the procedure well. The quality of the bowel preparation was adequate to identify polyps 6 mm and larger in size. The terminal ileum, ileocecal valve, appendiceal orifice, and rectum were photographed. Scope Withdrawal Time: 0 hours 8 minutes 40 seconds Moderate Sedation: MAC anesthesia was administered by the anesthesia team. Total Procedure Duration: 0 hours 16 minutes 2 seconds Findings: The terminal ileum appeared normal. A few small-mouthed diverticula were found in the sigmoid colon and descending colon. The entire examined colon appeared normal on direct and retroflexion views. Impression: - The examined portion of the ileum was normal. - Diverticulosis in the sigmoid colon and in the descending colon. - The entire examined colon is normal on direct and retroflexion views. - No specimens collected. Recommendation: - Patient has a contact number available for emergencies. The signs and symptoms of potential delayed complications were discussed with the patient. Return to normal activities tomorrow. Written discharge instructions were provided to the patient. - Resume previous diet. - Continue present medications. - Repeat colonoscopy in 10 years for screening purposes. - Return to primary care physician PRN. - Resume previous antiplatelet medication today at prior dose. Procedure Code(s): --- Professional --- 53570, Colonoscopy, flexible; diagnostic, including collection of specimen(s) by brushing or washing, when performed (separate procedure) Diagnosis Code(s): --- Professional --- Z12.11, Encounter for screening for malignant neoplasm of colon K57.30, Diverticulosis of large intestine without perforation or abscess without bleeding CPT copyright 2020 [place]. All rights reserved. The codes documented in this report are preliminary and upon english horn player review may be revised to meet current compliance requirements. Attending Participation: I personally performed the entire procedure. Scope In: 8:38:32 AM Scope Out: 8:54:34 AM MD Dominick Rodgers MD 02/16/2022 8:57:35 AM This report has been signed electronically by Dominick Mendoza MD Number of Addenda: 0 Note Initiated On: 02/16/2022 8:26 AM Estimated Blood Loss: Estimated blood loss: none. Normal [facility] GLUCOSE, BLOOD (POC)on 02-16 Glucose [Mass/Vol] 123 mg/dL Abnormal 74 - 99 mg/dL [facility] Glucose [Mass/Vol] 121 mg/dL Abnormal 74 - 99 mg/dL [facility] HISTORY PHYSICALon HISTORY PHYSICAL HNO ID: [id number] Author: Dominick Mendoza MD Service: General Surgery Author Type: Physician Type: HANDP Filed: 02/16/2022 8:33 AM Note Text: CC: screen colon HPI: Merle Bradley is a 61 year old female. here for cscope PAST MEDICAL HISTORY Diagnosis Date Diabetes mellitus (HCC) 11/2019 GERD (gastroesophageal reflux disease) Hypertension Irritable bowel syndrome with diarrhea Lacunar stroke (HCC) 11/2019 FABIOLA (obstructive sleep apnea) PAST SURGICAL HISTORY Procedure Laterality Date APPENDECTOMY SECTION HX LIG/TRNSXJ FLP TUBE ABDL/VAG APPR UNI/BI PICC LINE INSERT/CONSULT 05/15/2021 PILONIDAL CYST/SINUS EXCISION 1985 TONSILLECTOMY PRIMARY/SECONDARY SOCIAL HX: Social History Tobacco Use Smoking status: Former Packs/day: 0.30 Years: 15.00 Pack years: 4.50 Types: Cigarettes Start date: 07/14/1978 Quit date: 05/21/2000 Years since quittin.7 Smokeless tobacco: Never Vaping Use Vaping Use: Some days Substances: CBD Substance Use Topics Alcohol use: Not Currently Drug use: Not Currently Types: Marijuana FAMILY HISTORY Problem Relation Age of Onset No Ocular Disease Mother Alcohol abuse Mother Cataract Father Hypertension Father ALLERGIES: ALLERGIES No Known Allergies MEDICATIONS: hydrALAZINE (APRESOLINE) 50 mg tabletTake 1 tablet by mouth three times daily.Disp: 270 tabletRfl: 3 lisinopril (ZESTRIL, PRINIVIL) 40 mg tabletTake 1 tablet by mouth daily at bedtime.Disp: 90 tabletRfl: 3 amLODIPine (NORVASC) 10 mg tabletTake 1 tablet by mouth once daily.Disp: 90 tabletRfl: 3 peg 3350-Electrolytes (GOLYTELY) 236-22.74-6.74 -5.86 gram suspensionRefer to printed prep instructions from your provider.Disp: 4000 mLRfl: 0 ONETOUCH ULTRA2 METERDisp: Rfl: blood sugar diagnostic (BLOOD GLUCOSE TEST) test stripTest blood sugar(s) 2 times daily. Dx: Type 2 DM - Uncontrolled E11.65 Insulin: No DX: E11.9Disp: 50 StripRfl: 11 Lancets lancetsTest blood sugar(s) 2 times daily. Dx: Type 2 DM - Uncontrolled E11.65 Insulin: No DX:E11.9Disp: 100 EachRfl: 11 acetaminophen (TYLENOL) 325 mg tabletTake 2 tablets by mouth every 4 hours as needed for pain.Disp: Rfl: methocarbamol (ROBAXIN) 750 mg tabletTake 1 tablet by mouth three times daily as needed for muscle spasm, pain with chewing.Disp: 30 tabletRfl: 0 (Patient not taking: No sig reported) ondansetron orally disintegrating (ZOFRAN ODT) 4 mg disintegrating tabletDissolve 1 tablet by mouth every 8 hours as needed for nausea/vomiting.Disp: 30 tabletRfl: 0 (Patient not taking: Reported on 12/08/2021) metFORMIN (GLUCOPHAGE) 500 mg tabletTake 1 tablet by mouth twice daily with meals.Disp: 180 tabletRfl: 3 carvedilol (COREG) 6.25 mg tabletTake 1 tablet by mouth twice daily with meals.Disp: 180 tabletRfl: 3 atorvastatin (LIPITOR) 80 mg tabletTake 1 tablet by mouth once daily.Disp: 90 tabletRfl: 3 aspirin 81 mg chewable tabletTake 81 mg by mouth once daily.Disp: Rfl: sodium chloride (NaCl) 0.9% injection solutionInject 10 mL intravenously as directed. Flush with 10ml before and after dose. Flush with 10ml before and 20ml after lab draws. flush unused lumen(s) daily with 10ml. Flush all lumens with 10ml before and after TPN infusions.Disp: Rfl: Ascorbic Acid 1,000 mg tabletTake 1,000 mg by mouth once daily. Disp: Rfl: cholecalciferol, vitamin D3, (VITAMIN D3 ORAL)Take by mouth. 2000 international unit(s) dailyDisp: Rfl: aspirin 81 mg chewable tabletTake 1 tablet by mouth once daily.Disp: 90 tabletRfl: 1 vitamin B complex (B COMPLEX ORAL)Take 1 tablet by mouth once daily. Disp: Rfl: ROS: All systems reviewed and negative except as above noted. PHYSICAL EXAM: VITALS: BP 131/79 Pulse 75 Temp (Src) 97.3 (Temporal) Resp 18 SpO2 96% LMP 05/11/2009 O2 Therapy: Room Air Lungs: Lungs clear to auscultation. No wheezing, rhonchi, rales. Heart: RRR without murmur, gallop, or rubs. No ectopy. Abdomen: Normal abdominal exam, Abdomen soft, non-tender. Bowel sounds normal. No masses, organomegaly. IMPRESSION: sceen colon PLAN: cscope This note was partially generated using [employer] voice recognition system, and there may be some incorrect words, spellings, and punctuation that were not noted in checking the note before saving. Dominick Mendoza III, MD [facility] CT BRAIN WO IVCONon 12-28-[address] BRAIN WO IVCON * * *Final Report* * * DATE OF EXAM: Dec 27 2021 3:38PM [facility] [place] BRAIN WO IVCON / PROCEDURE REASON: I67.1-Nonruptured cerebral aneurysm * * * * Physician Interpretation * * * * EXAMINATION: CT BRAIN WO IVCON CLINICAL HISTORY: History of LUBA aneurysm clipping. History of cranial wound. TECHNIQUE: Serial axial images without IV contrast were obtained from the vertex to the foramen magnum. MQ: [id number] CT Radiation dose: Integrated Dose-Length Product (DLP) for this visit = 778 mGy*cm CT Dose Reduction Employed: Iterative recon and mAs-kVp adjusted using patient size-age COMPARISON : head MRI 11/25/2019, head CTA 11/24/2019 RESULT: Post-operative change: Midline frontal craniotomy. Heterogeneous erosive appearing changes of the right aspect of the midline frontal calvarial flap. No definitive overlying soft tissue thickening or fluid collection. Soft tissue thickening of increased attenuation overlying the right anterior frontal convexity, presumably localize dural thickening following the craniotomy. Aneurysm clip near the anterior interhemispheric fissure from prior LUBA aneurysm clipping. Acute change: No evidence of an acute infarct or other acute parenchymal process. Hemorrhage: No evidence of acute intracranial hemorrhage. ECASS hemorrhagic transformation score: Not Applicable Mass Lesion / Mass Effect: There is no evidence of an intracranial mass or extraaxial fluid collection. No significant mass effect. Chronic change: None apparent. Parenchyma: There is no significant volume loss. The brain parenchyma is otherwise within normal limits for age. Ventricles: The ventricles are within normal limits of size and configuration for age. Paranasal sinuses and skull base: The visualized paranasal sinuses are grossly clear. The skull base and imaged soft tissues are unremarkable. Pediatric Dental Hygienist (topogram) images: No additional findings. IMPRESSION: Changes of midline frontal craniotomy for LUBA aneurysm clipping. Heterogeneous irregularity of the calvarial flap to the right of midline without definitive overlying scalp swelling or edema. Comparison should be made with any available recent prior imaging to assess stability of this finding which could be infectious in etiology given reported overlying scalp wound. Otherwise no acute intracranial abnormality. Shop Tailor: ZEE Transcribe Date/Time: Dec 28 2021 8:42A Dictated by : MITUL MITCHELL DO This examination was interpreted and the report reviewed and electronically signed by: MITUL MITCHELL DO on Dec 28 2021 8:55AM EST [id number] Normal [facility] HISTORY PHYSICALon 0 HISTORY PHYSICAL HNO ID: [id number] Author: Joceline Tierney Service: Neurosurgery Author Type: Resident Type: HANDP Filed: 01/08/2020 8:17 AM Note Text: PROCEDURAL SEDATION HISTORY AND PHYSICAL EXAM SERVICE DATE: 01/08/2020 SERVICE TIME: 8:16 AM Subjective HPI: This is a 59 year old female who presents with a cerebral aneurysm. PAST ANESTHESIA HISTORY: No history of adverse event PAST MEDICAL HISTORY Diagnosis Date - Diabetes mellitus (HCC) 11/2019 - Hypertension - Lacunar stroke (HCC) 11/2019 PAST SURGICAL HISTORY Procedure Laterality Date - APPENDECTOMY - LIGATE FALLOPIAN TUBE Tubal ligation - REMOVAL OF TONSILS,<12 Y/O Tonsillectomy Prior to Admission medications as of 01/08/20 0749 Medication Sig Last Dose Taking lisinopril (ZESTRIL, PRINIVIL) 40 mg tablet Take 1 tablet by mouth daily at bedtime. 01/07/2020 at Unknown time Yes metFORMIN (GLUCOPHAGE) 500 mg tablet Take 1 tablet by mouth twice daily with meals. 01/07/2020 at Unknown time Yes hydrALAZINE (APRESOLINE) 50 mg tablet Take 1 tablet by mouth every 8 hours. 01/08/2020 at 0630 Yes carvedilol (COREG) 6.25 mg tablet Take 1 tablet by mouth twice daily with meals. 01/08/2020 at 0630 Yes aspirin 81 mg chewable tablet Take 1 tablet by mouth once daily. 01/07/2020 at 1200 Yes amLODIPine (NORVASC) 10 mg tablet Take 1 tablet by mouth once daily. 01/08/2020 at 0630 Yes atorvastatin (LIPITOR) 80 mg tablet Take 1 tablet by mouth once daily. 01/07/2020 at Unknown time Yes ALLERGIES No Known Allergies Objective PHYSICAL EXAM: The remainder of the physical exam is noncontributory. AIRWAY: Airway Visualization of Uvula: Yes Mouth opening greater than 2 fingerbreadths: Yes Neck Full Range of Motion: Yes LUNGS: Lungs clear to auscultation, Good diaphragmatic excursion CARDIAC: Normal S1 and S2; no rubs, murmurs, or gallops Assessment/Plan ASA Class: ASA Class:: Patient with mild systemic disease Cerebral aneurysm Provisional Diagnosis/Treatment Plan: Cerebral angiogram SEDATION GOAL: Moderate SIGNATURE: Joceline Tierney MD PATIENT NAME: Merle Bradley DATE: January 08, 2020 TIME: 8:16 AM PAGER: [id number] [facility] IR 3D ANGIO RECONSTRUCTIONon 01-08-2020 IR 3D ANGIO RECONSTRUCTION * * *Final Report* * * DATE OF EXAM: Jan 08 2020 9:36AM [facility]69 - IR 3D ANGIO RECONSTRUCTION / PROCEDURE REASON: unruptured cerebral aneurysm * * * * Physician Interpretation * * * * Diagnostic Cerebral Angiogram Report CLINICAL HISTORY: This patient is a 59-year-old female with an 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 A diagnostic cerebral angiogram was requested for treatment planning. PROCEDURE: Diagnostic cerebral angiogram. TIME OUT TIME: 9:01 AM PROCEDURE START TIME: 9:01 AM PROCEDURE END TIME: 9:36 AM ATTENDING: Rhett Horne MD HOG TENDER (FELLOW): Joceline Tierney MD The procedure was performed by the plumber's assistant, and the attending personally supervised the entire procedure. ANGIOGRAPHY MATERIALS: Diagnostic catheter: 5 Haitian BVfon Telecommunication 2 catheter Guidewire: 0.035 angled tapered Glidewire. Fluoroscopic Radiation Summary: Plane A, Air Kerma: 295.7 mGy Plane B, Air Kerma: 91.5 mGy Dose Area Product (DAP): 42843.2 mGy*cm2 Fluoro time: 13:00 min:sec Contrast (arterial): 100 ml of OMNIPAQUE 300 ANESTHESIA: Conscious sedation with 75 mcg fentanyl and 1.5 mg Versed were administered by IV with continuous monitoring by a dedicated nurse. Pulsed oximetry, cardiopulmonary monitoring and electrocardiography was performed throughout the procedure. Intra-service time (monitoring for moderate sedation) (starts with administration of agent, ends when continuous [id number] time ends): 45 minutes. Patient monitoring: I personally supervised and directed an independent trained observer who assisted in monitoring the patient?s level of consciousness and physiological status throughout the procedure. TECHNIQUE: After andre discussion of the risks and benefits of diagnostic cerebral angiography, informed consent was obtained. The patient was brought to the angiography suite and placed in supine position. After hemodynamic monitoring was established, conscious sedation was administered by our nursing staff. The right wrist and forearm were prepped and draped in the usual standard fashion, and 1% lidocaine was used for local anesthetic. The right radial artery access site was localized 2 cm proximal to the radial styloid process. The artery was assessed using ultrasound: Right radial artery: Normal and patent. The right radial artery was found to be sufficient for transradial access. A permanent image of the artery was archived. The artery was then accessed using a Seldinger technique under ultrasound guidance. A 5 Haitian slender sheath was inserted and connected to heparinized saline flush. A vasodilatory medication infusion consisting of nitroglycerine, verapamil, and heparin was administered intra-arterially through the radial sheath over 2 minutes. The diagnostic catheter and wire were then fluoroscopically advanced for selective catheterization of the following vessels: Brachiocephalic vascular family: Right common carotid artery, cervical views. Right internal carotid artery, intracranial views. Standard AP, lateral and oblique views. Right vertebral artery, intracranial views. Standard AP, lateral and oblique views. Left carotid vascular family: Left common carotid artery, cervical views. Left internal carotid artery, intracranial views. Standard AP, lateral and oblique views. Left internal carotid artery, 3D rotational angiography. Left subclavian vascular family: Left vertebral artery, intracranial views. Standard AP, lateral and oblique views. Angiographic imaging was performed at each selected vessel with views as described above. 3D rotational angiography was obtained with the catheter placed in the left internal carotid artery. Images were sent to a separate workstation for volume rendering and interpretation. After no further views and images were determined to be necessary, the procedure was terminated. All catheters and wires were removed from the patient. Hemostasis at the right wrist was obtained with TR band. The patient was transferred to the radiology recovery room in stable condition without immediate complication. FINDINGS: RIGHT COMMON CAROTID ARTERY INJECTION (cervical): DSA images of the right anterior cervical circulation demonstrate normal course and caliber of the distal common carotid artery. The bifurcation is at C4. There is no significant atherosclerosis at the bifurcation by NASCET criteria. The cervical ICA has normal course and caliber. The proximal ECA and its branches demonstrate a normal course and caliber. There is no evidence of dissection or arteriovenous shunting. RIGHT INTERNAL CAROTID ARTERY INJECTION (cranial): DSA images of the right anterior intracranial circulation demonstrate normal course and caliber of the petrous, cavernous and supraclinoid segments of the internal carotid artery. The ophthalmic artery origin, course and caliber are normal. There is a moderate sized posterior communicating artery that contributes to the posterior circulation. The anterior choroidal artery is normal. M1 and A1 segments are normal. MCA and LUBA distributions are normal. There is transient filling across the anterior communicating artery to the contralateral LUBA. Capillary and venous phases are normal. No aneurysm or arteriovenous shunting is identified. LEFT COMMON CAROTID ARTERY INJECTION (cervical): DSA images of the left anterior cervical circulation demonstrate normal course and caliber of the distal common carotid artery. The bifurcation is at C3. There is no significant atherosclerosis at the bifurcation by NASCET criteria. The cervical ICA has normal course and caliber. The proximal ECA and its branches demonstrate a normal course and caliber. There is no evidence of dissection or arteriovenous shunting. LEFT INTERNAL CAROTID ARTERY INJECTION (cranial): DSA images of the left anterior intracranial circulation demonstrate normal course and caliber of the petrous, cavernous and supraclinoid segments of the internal carotid artery. The ophthalmic artery origin, course and caliber are normal. There is a small posterior communicating artery without significant contribution to the posterior circulation. The anterior choroidal artery is normal. M1 and A1 segments are normal. The MCA distribution is normal. There is an irregular aneurysm arising from the left LUBA callosomarginal origin that measures 4.5 mm x 2.6 mm x 3.9 mm. There is transient filling across the anterior communicating artery to the contralateral LUBA. Capillary and venous phases are normal. No arteriovenous shunting is identified. LEFT INTERNAL CAROTID ARTERY (3D rotational angiography): Configuration of the left LUBA aneurysm was confirmed on the 3D image. RIGHT VERTEBRAL ARTERY INJECTION: DSA images of the posterior intracranial circulation demonstrate normal course and caliber of the distal right vertebral artery. The vertebrobasilar confluence is normal. There is transient reflux of contrast down the left vertebral artery. The basilar segment and apex are normal. Bilateral posterior-inferior cerebellar arteries are normal. Bilateral anterior-inferior cerebellar arteries are normal. Bilateral superior cerebellar arteries are normal. Bilateral posterior cerebral arteries are normal. The capillary and venous phases are normal. No aneurysm or arteriovenous shunting is identified. LEFT VERTEBRAL ARTERY INJECTION: DSA images of the posterior intracranial circulation demonstrate normal course and caliber of the distal left vertebral artery. The vertebrobasilar confluence is normal. There is no reflux of contrast down the right vertebral artery. The basilar segment and apex are normal. The left posterior-inferior cerebellar artery is normal. Bilateral anterior-inferior cerebellar arteries are normal. Bilateral superior cerebellar arteries are normal. Bilateral posterior cerebral arteries are normal. The capillary and venous phases are normal. No aneurysm or arteriovenous shunting is identified. 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 Shop Tailor: ZEE Transcribe Date/Time: Jan 08 2020 9:50A Dictated by : JOCELINE TIERNEY MD This examination was interpreted and the report reviewed and electronically signed by: RHETT HORNE MD on Jan 09 2020 10:26AM EST [id number] [facility] IR-BILAT SELECT VERT W/WO AR Miryam 01-08-2020 IR-BILAT SELECT VERT W/WO ARCH * * *Final Report* * * DATE OF EXAM: Jan 08 2020 9:36AM [facility] [id number] - IR-BILAT SELECT VERT W/WO ARCH / PROCEDURE REASON: unruptured cerebral aneurysm * * * * Physician Interpretation * * * * Diagnostic Cerebral Angiogram Report CLINICAL HISTORY: This patient is a 59-year-old female with an 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 A diagnostic cerebral angiogram was requested for treatment planning. PROCEDURE: Diagnostic cerebral angiogram. TIME OUT TIME: 9:01 AM PROCEDURE START TIME: 9:01 AM PROCEDURE END TIME: 9:36 AM ATTENDING: Rhett Horne MD HOG TENDER (FELLOW): Joceline Tierney MD The procedure was performed by the plumber's assistant, and the attending personally supervised the entire procedure. ANGIOGRAPHY MATERIALS: Diagnostic catheter: 5 Haitian Ordoñez 2 catheter Guidewire: 0.035 angled tapered Glidewire. Fluoroscopic Radiation Summary: Plane A, Air Kerma: 295.7 mGy Plane B, Air Kerma: 91.5 mGy Dose Area Product (DAP): 80304.2 mGy*cm2 Fluoro time: 13:00 min:sec Contrast (arterial): 100 ml of OMNIPAQUE 300 ANESTHESIA: Conscious sedation with 75 mcg fentanyl and 1.5 mg Versed were administered by IV with continuous monitoring by a dedicated nurse. Pulsed oximetry, cardiopulmonary monitoring and electrocardiography was performed throughout the procedure. Intra-service time (monitoring for moderate sedation) (starts with administration of agent, ends when continuous vioc-[id number] time ends): 45 minutes. Patient monitoring: I personally supervised and directed an independent trained observer who assisted in monitoring the patient?s level of consciousness and physiological status throughout the procedure. TECHNIQUE: After andre discussion of the risks and benefits of diagnostic cerebral angiography, informed consent was obtained. The patient was brought to the angiography suite and placed in supine position. After hemodynamic monitoring was established, conscious sedation was administered by our nursing staff. The right wrist and forearm were prepped and draped in the usual standard fashion, and 1% lidocaine was used for local anesthetic. The right radial artery access site was localized 2 cm proximal to the radial styloid process. The artery was assessed using ultrasound: Right radial artery: Normal and patent. The right radial artery was found to be sufficient for transradial access. A permanent image of the artery was archived. The artery was then accessed using a Seldinger technique under ultrasound guidance. A 5 Haitian slender sheath was inserted and connected to heparinized saline flush. A vasodilatory medication infusion consisting of nitroglycerine, verapamil, and heparin was administered intra-arterially through the radial sheath over 2 minutes. The diagnostic catheter and wire were then fluoroscopically advanced for selective catheterization of the following vessels: Brachiocephalic vascular family: Right common carotid artery, cervical views. Right internal carotid artery, intracranial views. Standard AP, lateral and oblique views. Right vertebral artery, intracranial views. Standard AP, lateral and oblique views. Left carotid vascular family: Left common carotid artery, cervical views. Left internal carotid artery, intracranial views. Standard AP, lateral and oblique views. Left internal carotid artery, 3D rotational angiography. Left subclavian vascular family: Left vertebral artery, intracranial views. Standard AP, lateral and oblique views. Angiographic imaging was performed at each selected vessel with views as described above. 3D rotational angiography was obtained with the catheter placed in the left internal carotid artery. Images were sent to a separate workstation for volume rendering and interpretation. After no further views and images were determined to be necessary, the procedure was terminated. All catheters and wires were removed from the patient. Hemostasis at the right wrist was obtained with TR band. The patient was transferred to the radiology recovery room in stable condition without immediate complication. FINDINGS: RIGHT COMMON CAROTID ARTERY INJECTION (cervical): DSA images of the right anterior cervical circulation demonstrate normal course and caliber of the distal common carotid artery. The bifurcation is at C4. There is no significant atherosclerosis at the bifurcation by NASCET criteria. The cervical ICA has normal course and caliber. The proximal ECA and its branches demonstrate a normal course and caliber. There is no evidence of dissection or arteriovenous shunting. RIGHT INTERNAL CAROTID ARTERY INJECTION (cranial): DSA images of the right anterior intracranial circulation demonstrate normal course and caliber of the petrous, cavernous and supraclinoid segments of the internal carotid artery. The ophthalmic artery origin, course and caliber are normal. There is a moderate sized posterior communicating artery that contributes to the posterior circulation. The anterior choroidal artery is normal. M1 and A1 segments are normal. MCA and LUBA distributions are normal. There is transient filling across the anterior communicating artery to the contralateral LUBA. Capillary and venous phases are normal. No aneurysm or arteriovenous shunting is identified. LEFT COMMON CAROTID ARTERY INJECTION (cervical): DSA images of the left anterior cervical circulation demonstrate normal course and caliber of the distal common carotid artery. The bifurcation is at C3. There is no significant atherosclerosis at the bifurcation by NASCET criteria. The cervical ICA has normal course and caliber. The proximal ECA and its branches demonstrate a normal course and caliber. There is no evidence of dissection or arteriovenous shunting. LEFT INTERNAL CAROTID ARTERY INJECTION (cranial): DSA images of the left anterior intracranial circulation demonstrate normal course and caliber of the petrous, cavernous and supraclinoid segments of the internal carotid artery. The ophthalmic artery origin, course and caliber are normal. There is a small posterior communicating artery without significant contribution to the posterior circulation. The anterior choroidal artery is normal. M1 and A1 segments are normal. The MCA distribution is normal. There is an irregular aneurysm arising from the left LUBA callosomarginal origin that measures 4.5 mm x 2.6 mm x 3.9 mm. There is transient filling across the anterior communicating artery to the contralateral LUBA. Capillary and venous phases are normal. No arteriovenous shunting is identified. LEFT INTERNAL CAROTID ARTERY (3D rotational angiography): Configuration of the left LUBA aneurysm was confirmed on the 3D image. RIGHT VERTEBRAL ARTERY INJECTION: DSA images of the posterior intracranial circulation demonstrate normal course and caliber of the distal right vertebral artery. The vertebrobasilar confluence is normal. There is transient reflux of contrast down the left vertebral artery. The basilar segment and apex are normal. Bilateral posterior-inferior cerebellar arteries are normal. Bilateral anterior-inferior cerebellar arteries are normal. Bilateral superior cerebellar arteries are normal. Bilateral posterior cerebral arteries are normal. The capillary and venous phases are normal. No aneurysm or arteriovenous shunting is identified. LEFT VERTEBRAL ARTERY INJECTION: DSA images of the posterior intracranial circulation demonstrate normal course and caliber of the distal left vertebral artery. The vertebrobasilar confluence is normal. There is no reflux of contrast down the right vertebral artery. The basilar segment and apex are normal. The left posterior-inferior cerebellar artery is normal. Bilateral anterior-inferior cerebellar arteries are normal. Bilateral superior cerebellar arteries are normal. Bilateral posterior cerebral arteries are normal. The capillary and venous phases are normal. No aneurysm or arteriovenous shunting is identified. 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 Shop Tailor: ZEE Transcribe Date/Time: Jan 08 2020 9:50A Dictated by : JOCELINE TIERNEY MD This examination was interpreted and the report reviewed and electronically signed by: RHETT HORNE MD on Jan 09 2020 10:26AM EST [id number] [facility] IR-ICA H/N BILAT W/WO ARCHon 01-08-2020 IR-ICA H/N BILAT W/WO ARCH * * *Final Report* * * DATE OF EXAM: Jan 08 2020 9:36AM [facility]VA [id number] - IR-ICA H/N BILAT W/WO ARCH / PROCEDURE REASON: unruptured cerebral aneurysm * * * * Physician Interpretation * * * * Diagnostic Cerebral Angiogram Report CLINICAL HISTORY: This patient is a 59-year-old female with an 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 A diagnostic cerebral angiogram was requested for treatment planning. PROCEDURE: Diagnostic cerebral angiogram. TIME OUT TIME: 9:01 AM PROCEDURE START TIME: 9:01 AM PROCEDURE END TIME: 9:36 AM ATTENDING: Rhett Horne MD HOG TENDER (FELLOW): Joceline Tierney MD The procedure was performed by the plumber's assistant, and the attending personally supervised the entire procedure. ANGIOGRAPHY MATERIALS: Diagnostic catheter: 5 Haitian Ordoñez 2 catheter Guidewire: 0.035 angled tapered Glidewire. Fluoroscopic Radiation Summary: Plane A, Air Kerma: 295.7 mGy Plane B, Air Kerma: 91.5 mGy Dose Area Product (DAP): 60635.2 mGy*cm2 Fluoro time: 13:00 min:sec Contrast (arterial): 100 ml of OMNIPAQUE 300 ANESTHESIA: Conscious sedation with 75 mcg fentanyl and 1.5 mg Versed were administered by IV with continuous monitoring by a dedicated nurse. Pulsed oximetry, cardiopulmonary monitoring and electrocardiography was performed throughout the procedure. Intra-service time (monitoring for moderate sedation) (starts with administration of agent, ends when continuous [id number] time ends): 45 minutes. Patient monitoring: I personally supervised and directed an independent trained observer who assisted in monitoring the patient?s level of consciousness and physiological status throughout the procedure. TECHNIQUE: After andre discussion of the risks and benefits of diagnostic cerebral angiography, informed consent was obtained. The patient was brought to the angiography suite and placed in supine position. After hemodynamic monitoring was established, conscious sedation was administered by our nursing staff. The right wrist and forearm were prepped and draped in the usual standard fashion, and 1% lidocaine was used for local anesthetic. The right radial artery access site was localized 2 cm proximal to the radial styloid process. The artery was assessed using ultrasound: Right radial artery: Normal and patent. The right radial artery was found to be sufficient for transradial access. A permanent image of the artery was archived. The artery was then accessed using a Seldinger technique under ultrasound guidance. A 5 Haitian slender sheath was inserted and connected to heparinized saline flush. A vasodilatory medication infusion consisting of nitroglycerine, verapamil, and heparin was administered intra-arterially through the radial sheath over 2 minutes. The diagnostic catheter and wire were then fluoroscopically advanced for selective catheterization of the following vessels: Brachiocephalic vascular family: Right common carotid artery, cervical views. Right internal carotid artery, intracranial views. Standard AP, lateral and oblique views. Right vertebral artery, intracranial views. Standard AP, lateral and oblique views. Left carotid vascular family: Left common carotid artery, cervical views. Left internal carotid artery, intracranial views. Standard AP, lateral and oblique views. Left internal carotid artery, 3D rotational angiography. Left subclavian vascular family: Left vertebral artery, intracranial views. Standard AP, lateral and oblique views. Angiographic imaging was performed at each selected vessel with views as described above. 3D rotational angiography was obtained with the catheter placed in the left internal carotid artery. Images were sent to a separate workstation for volume rendering and interpretation. After no further views and images were determined to be necessary, the procedure was terminated. All catheters and wires were removed from the patient. Hemostasis at the right wrist was obtained with TR band. The patient was transferred to the radiology recovery room in stable condition without immediate complication. FINDINGS: RIGHT COMMON CAROTID ARTERY INJECTION (cervical): DSA images of the right anterior cervical circulation demonstrate normal course and caliber of the distal common carotid artery. The bifurcation is at C4. There is no significant atherosclerosis at the bifurcation by NASCET criteria. The cervical ICA has normal course and caliber. The proximal ECA and its branches demonstrate a normal course and caliber. There is no evidence of dissection or arteriovenous shunting. RIGHT INTERNAL CAROTID ARTERY INJECTION (cranial): DSA images of the right anterior intracranial circulation demonstrate normal course and caliber of the petrous, cavernous and supraclinoid segments of the internal carotid artery. The ophthalmic artery origin, course and caliber are normal. There is a moderate sized posterior communicating artery that contributes to the posterior circulation. The anterior choroidal artery is normal. M1 and A1 segments are normal. MCA and LUBA distributions are normal. There is transient filling across the anterior communicating artery to the contralateral LUBA. Capillary and venous phases are normal. No aneurysm or arteriovenous shunting is identified. LEFT COMMON CAROTID ARTERY INJECTION (cervical): DSA images of the left anterior cervical circulation demonstrate normal course and caliber of the distal common carotid artery. The bifurcation is at C3. There is no significant atherosclerosis at the bifurcation by NASCET criteria. The cervical ICA has normal course and caliber. The proximal ECA and its branches demonstrate a normal course and caliber. There is no evidence of dissection or arteriovenous shunting. LEFT INTERNAL CAROTID ARTERY INJECTION (cranial): DSA images of the left anterior intracranial circulation demonstrate normal course and caliber of the petrous, cavernous and supraclinoid segments of the internal carotid artery. The ophthalmic artery origin, course and caliber are normal. There is a small posterior communicating artery without significant contribution to the posterior circulation. The anterior choroidal artery is normal. M1 and A1 segments are normal. The MCA distribution is normal. There is an irregular aneurysm arising from the left LUBA callosomarginal origin that measures 4.5 mm x 2.6 mm x 3.9 mm. There is transient filling across the anterior communicating artery to the contralateral LUBA. Capillary and venous phases are normal. No arteriovenous shunting is identified. LEFT INTERNAL CAROTID ARTERY (3D rotational angiography): Configuration of the left LUBA aneurysm was confirmed on the 3D image. RIGHT VERTEBRAL ARTERY INJECTION: DSA images of the posterior intracranial circulation demonstrate normal course and caliber of the distal right vertebral artery. The vertebrobasilar confluence is normal. There is transient reflux of contrast down the left vertebral artery. The basilar segment and apex are normal. Bilateral posterior-inferior cerebellar arteries are normal. Bilateral anterior-inferior cerebellar arteries are normal. Bilateral superior cerebellar arteries are normal. Bilateral posterior cerebral arteries are normal. The capillary and venous phases are normal. No aneurysm or arteriovenous shunting is identified. LEFT VERTEBRAL ARTERY INJECTION: DSA images of the posterior intracranial circulation demonstrate normal course and caliber of the distal left vertebral artery. The vertebrobasilar confluence is normal. There is no reflux of contrast down the right vertebral artery. The basilar segment and apex are normal. The left posterior-inferior cerebellar artery is normal. Bilateral anterior-inferior cerebellar arteries are normal. Bilateral superior cerebellar arteries are normal. Bilateral posterior cerebral arteries are normal. The capillary and venous phases are normal. No aneurysm or arteriovenous shunting is identified. 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 Shop Tailor: ZEE Transcribe Date/Time: Jan 08 2020 9:50A Dictated by : JOCELINE TIERNEY MD This examination was interpreted and the report reviewed and electronically signed by: RHETT HORNE MD on Jan 09 2020 10:26AM EST [id number] [facility] NURSING PROGon 01-08-2020 NURSING PROG HNO ID: [id number] Author: Singh Song) LORENZO Mendoza Service: Nursing Author Type: Registered Nurse Type: Nursing Progress Note Filed: 01/08/2020 12:23 PM Note Text: {Select Nursing ProPATIENT EDUCATION TOPIC: PROCEDURE / SURGERY: Post Procedure Teaching: Med Administration, Symptom Management and Wound Care PATIENT NAME: Merle Bradley PATIENT LOCATION: INTERVENTIONAL RADIOL* READINESS TO LEARN COGNITIVE ABILITY: Alert and oriented MOTIVATION TO LEARN: Eager FAMILY SUPPORT: None - Unavailable/disinteres latricia INSTRUCTION PROVIDED TO: Patient PATIENT LEARNS BEST BY: Individual Instruction FACTORS AFFECTING LEARNING: None PHYSICAL LIMITATIONS AFFECTING LEARNING: None LEARNING RESPONSE DIAGNOSIS: ADULT: Well Adult PATIENT/FAMILY RESPONSE: Verbalizes understanding of: POST-PROCEDURE INSTRUCTIONS-Correct actions to take to reduce post procedure complications METHOD OF INSTRUCTION: Individual instruction Written instruction - handouts Verbal instruction FOLLOW-UP PLAN: Complete - No need for follow-up INSTRUCTIONAL AIDS USED: NA SUPPLEMENTAL MATERIAL PROVIDED TO PATIENT: None REFERRAL (RECOMMENDATION): None Electronically Signed By: Singh Mendoza RN [facility] NURSING PROG HNO ID: [id number] Author: Carmenkarla Lima RN Service: Nursing Author Type: Registered Nurse Type: Nursing Progress Note Filed: 01/08/2020 11:49 AM Note Text: Band removed from right wrist. Pressure dressing placed. [facility] NURSING PROG HNO ID: [id number] Author: Chris Jacobsen RN Service: PICC Team Author Type: Registered Nurse Type: Nursing Progress Note Filed: 01/08/2020 7:46 AM Note Text: AMBULATORY PATIENT EDUCATION TOPIC: Survival Skills: SURVIVAL SKILLS: Cerebral angiogram READINESS TO LEARN COGNITIVE ABILITY: Alert and oriented MOTIVATION TO LEARN: Eager FAMILY SUPPORT: Unable to assess - Family not present INSTRUCTION PROVIDED TO: Patient PATIENT LEARNS BEST BY: Individual Instruction Verbal Instruction FACTORS AFFECTING LEARNING: None PHYSICAL LIMITATIONS AFFECTING LEARNING: None LEARNING RESPONSE DIAGNOSIS: METHOD OF INSTRUCTION: Individual instruction PATIENT / FAMILY RESPONSE: Verbalizes understanding of: POST-PROCEDURE INSTRUCTIONS-Correct actions to take to reduce post procedure complications PRE-PROCEDURE INSTRUCTIONS-Correct action to take to follow pre-procedure instructions FOLLOW-UP PLAN: Patient instructed to call with any further issues Follow-up with Primary Care SUPPLEMENTAL MATERIAL: None REFERRAL (RECOMMENDATION): None Electronically Signed By: Chris Jacobsen RN In Department: [facility] INTERVENTIONAL RADIOLOGY [facility] PT EDon 01-08-2020 PT ED HNO ID: [id number] Author: Jose Plummer RN Service: Radiology Author Type: Registered Nurse Type: Patient Education Filed: 01/08/2020 9:06 AM Note Text: PATIENT EDUCATION TOPIC: PROCEDURE / SURGERY: Procedure/Surgery: Cerebral Angiogram PATIENT NAME: Merle Bradley PATIENT LOCATION: INTERVENTIONAL RADIOL* READINESS TO LEARN COGNITIVE ABILITY: Alert and oriented MOTIVATION TO LEARN: Interested FAMILY SUPPORT: None - Unavailable/disinteres latricia INSTRUCTION PROVIDED TO: Patient PATIENT LEARNS BEST BY: Individual Instruction Verbal Instruction FACTORS AFFECTING LEARNING: None PHYSICAL LIMITATIONS AFFECTING LEARNING: None LEARNING RESPONSE DIAGNOSIS: ADULT: Cerebral angiogram PATIENT/FAMILY RESPONSE: Verbalizes understanding of: PRE-PROCEDURE INSTRUCTIONS-Correct action to take to follow pre-procedure instructions METHOD OF INSTRUCTION: Individual instruction Verbal instruction FOLLOW-UP PLAN: Follow-up with Primary Care INSTRUCTIONAL AIDS USED: NA SUPPLEMENTAL MATERIAL PROVIDED TO PATIENT: None REFERRAL (RECOMMENDATION): None Electronically Signed By: Jose Plummer RN [facility] 01-07-2020 CNPN Telephone ([facility]) MERLE BRADLEY ([id number]) 1960 F Date Time Provider Department 01/07/20 SALUD LEWIS (RT) RG During your visit today, we recorded the following information about you: Allergies As of Date: 01/07/2020 (No Known Allergies) Date Reviewed: 12/25/2019 Reviewed by: Tamara ([facility]) George - Fully Assessed Reason for Visit: Reminder Call [[id number]] Cmt: left message with Merle and left pre procedure instructions for cerebral angiogram on 01/08/2020. Prescriptions as of 01/07/2020 Sig: METFORMIN 500 MG TABLET Take 1 tablet by mouth twice * LISINOPRIL 40 MG TABLET Take 1 tablet by mouth once d* HYDRALAZINE 50 MG TABLET Take 1 tablet by mouth every * CARVEDILOL 6.25 MG TABLET Take 1 tablet by mouth twice * ASPIRIN 81 MG CHEWABLE TABLET Take 1 tablet by mouth once d* AMLODIPINE 10 MG TABLET Take 1 tablet by mouth once d* ATORVASTATIN 80 MG TABLET Take 1 tablet by mouth once d* Problem List As Of Date 01/07/2020 Noted Resolved Essential hypertension [I10] 02/13/2006 ANXIETY STATE NOS [F41.1] 03/22/2006 Hypertensive emergency [I16.1] 11/12/2019 11/15/2019 Obesity, Class III, BMI >= 40 [E66.01] 11/12/2019 11/28/2019 CVA (cerebral vascular accident) (HCC) [I63.9] 11/12/2019 Diabetes mellitus type 2, controlled, without c*11/14/2019 Hyperlipidemia [E78.5] 11/14/2019 Ataxia due to acute cerebrovascular disease [I6*11/25/2019 Obesity, Class II, BMI 35-39.9 [E66.9] 11/28/2019 Cerebral aneurysm, nonruptured [I67.1] 12/18/2019 Encounter Status:Closed by SALUD LEWIS on 01/07/20 [facility] Alfonso 12-25-2019 ADANN Telephone ([facility]) PEARLMERLE Cortez ([id number]) 1960 F Date Time Provider Department 12/25/19 SHERRILL DU ([facility]) [facility] During your visit today, we recorded the following information about you: Allergies As of Date: 12/25/2019 (No Known Allergies) Date Reviewed: 12/25/2019 Reviewed by: Tamara ([facility]) George - Fully Assessed Reason for Visit: Appointment [[id number]] Cmt: attempted to reach patient to schedule the Covid test and go over instructions for upcoming diagnostic angiogram. No answer, left message. Prescriptions as of 12/25/2019 Sig: METFORMIN 500 MG TABLET Take 1 tablet by mouth twice * LISINOPRIL 40 MG TABLET Take 1 tablet by mouth once d* HYDRALAZINE 50 MG TABLET Take 1 tablet by mouth every * CARVEDILOL 6.25 MG TABLET Take 1 tablet by mouth twice * ASPIRIN 81 MG CHEWABLE TABLET Take 1 tablet by mouth once d* AMLODIPINE 10 MG TABLET Take 1 tablet by mouth once d* ATORVASTATIN 80 MG TABLET Take 1 tablet by mouth once d* Problem List As Of Date 12/25/2019 Noted Resolved Essential hypertension [I10] 02/13/2006 ANXIETY STATE NOS [F41.1] 03/22/2006 Hypertensive emergency [I16.1] 11/12/2019 11/15/2019 Obesity, Class III, BMI >= 40 [E66.01] 11/12/2019 11/28/2019 CVA (cerebral vascular accident) (HCC) [I63.9] 11/12/2019 Diabetes mellitus type 2, controlled, without c*11/14/2019 Hyperlipidemia [E78.5] 11/14/2019 Ataxia due to acute cerebrovascular disease [I6*11/25/2019 Obesity, Class II, BMI 35-39.9 [E66.9] 11/28/2019 Cerebral aneurysm, nonruptured [I67.1] 12/18/2019 Encounter Status:Closed by SHERRILL CLARK on 12/25/19 [facility] HOSPon 12-19-2019 HOSP Patient:Cira Bradley MRN: Height:5' 4.25(1.632 m) Weight:243 lb 12.8 oz (110.587 kg) Outpatient Medications as of 01/08/20: lisinopril (ZESTRIL, PRINIVIL) 40 mg tablet metFORMIN (GLUCOPHAGE) 500 mg tablet hydrALAZINE (APRESOLINE) 50 mg tablet carvedilol (COREG) 6.25 mg tablet aspirin 81 mg chewable tablet amLODIPine (NORVASC) 10 mg tablet atorvastatin (LIPITOR) 80 mg tablet Admission/Clinic Administered Medications as of 01/08/20: Patient has no admission medications. Problem List: Essential hypertension [I10] Anxiety state, unspecified [F41.1] CVA (cerebral vascular accident) (HCC) [I63.9] Diabetes mellitus type 2, controlled, without complications (HCC) [E11.9] Hyperlipidemia [E78.5] Ataxia due to acute cerebrovascular disease [I67.89, R27.0] Obesity, Class II, BMI 35-39.9 [E66.9] Cerebral aneurysm, nonruptured [I67.1] Obesity, Class III, BMI >= 40 [E66.01] Allergies: No Known Allergies Date Verified:01/08/20 Lab Values No results within the last 30 days for the following basenames: K,HCT Progress Notes ([facility]): Nicole Laguna MA 01/07/2020 4:29 PM Signed Patient presents with: Hypertension Neurologic Problem Diabetes Nicole Laguna MA 01/07/2020 4:27 PM Signed [facility] - LAB TEST INFORMATION HOURS: 7 am to 6 pm Monday ? Monday, 7 am -12 pm on Monday. The lab is located in [facility] on the first floor. There is a registration window at the lab, available 7 am to 3 pm Monday ? Monday. If registration is unavailable at the lab, you may register at the patient registration office near [facility]. ROUTINE ORDERS 60 days after they are entered. If you arrive for your lab testing after the orders have , you may be required to wait in the lab while they are reinstated. FUTURE ORDERS are lab tests to be completed on or after an ?expected? future date. These orders 60 days after the expected date. STANDING ORDERS are recurring orders with an expiration date. The interval will indicate how often the test should be completed. FASTING means nothing to eat or drink (except water) 10-12 hours before your blood is drawn. CT / MRI / IVP If you have lab tests ordered for one of these radiology exams, please complete the blood work at least one day prior to the scheduled exam. PRESCRIPTION REFILL REQUESTS Request prescription refills through your [employer] account or contact your Pharmacy. [employer] Schedule My Appointment enables you to view your established Primary Care Provider's open schedule and book an appointment online in real-time. This feature is available in Internal Medicine, Family Medicine, or Pediatrics at any of our [facility] locations and [facility] [place]. Nicole Laguna MA 01/07/2020 4:58 PM Signed URINE ALBUMIN:CREATININE RATIO due on 1972 DIABETIC FOOT EXAM due on 1972 HEPATITIS C SCREENING due on 1980 HIV SCREENING due on 1980 BP CONTROLLED (<130/80) due on 1980 PAP TESTING due on 12/14/1983 HPV TESTING due on 1992 COLORECTAL CANCER SCREENING,SEE MODIFIER due on 2012 SHINGRIX VACCINE(1 of 2) due on 2012 DTAP,TDAP,TD(2 - Td) due on 07/28/2019 Last 3 Encounter BP Readings: Date: BP: 01/07/2020 140/73 01/03/2020 137/74 12/25/2019 134/86 LDL Cholesterol (mg/dL) Date Value 07/27/2009 41 LDL Cholesterol, Nonfasting (mg/dL) Date Value 11/12/2019 76 HBA1C: Hemoglobin A1C (%) Date Value 11/12/2019 8.4 No results found for: UALBCR, UPROT, UCR, UCRR, UALB Health Maintenance Topics Topic Date Due - DIABETIC FOOT EXAM 1970 Yessenia Rodriguez MD 01/07/2020 4:58 PM Signed Patient presents with: Hypertension Neurologic Problem Diabetes HPI: Merle Bradley is a 59 year old female who presents to the office today for follow up. Possible FABIOLA Recommended to get split night study but difficulty getting a ride downtown - car is unreliable. 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 Found to have an aneursym HTN Coreg 6.25 BID, hydralazine 50 TID, amlodipine 10 mg, lisinopril 40 150-160/90s before meds, after meds 116/75 DM Metformin 500 mg BID Hemoglobin A1C (%) Date Value 11/12/2019 8.4 REVIEW OF SYSTEMS: CONSTITUTIONAL: No fevers, chills, nightsweats, unintended weight loss HEENT: Denies frequent or severe heaches, nasal congestion/sinus symptoms, problematic allergy problems. EYES: No diplopia or blurry vision. CARDIOVASCULAR: No chest pain, dyspnea, palpitations, orthopnea, PND, ankle edema. PULM: No dyspnea, unexplained cough. GI: No dysphagia/odynophagia, problematic reflux, constipation, diarrhea, changes in stool habits, hematochezia, melena. : No new urinary complaints, including dysuria, gross hematuria or pyuria. NEURO: No new balance problems, peripheral weakness/paresthesias or numbness of concern. MUSC-SKEL: No new joint pain, swelling, or erythema. PSY: No concerns regarding depression, anxiety or panic. INTEGUMENTARY: No new skin changes (rash, new or changing mole, new growth) PAST MEDICAL HISTORY Diagnosis Date - Diabetes mellitus (HCC) 11/2019 - Hypertension - Lacunar stroke (HCC) 11/2019 PAST SURGICAL HISTORY Procedure Laterality Date - APPENDECTOMY - LIGATE FALLOPIAN TUBE Tubal ligation - REMOVAL OF TONSILS,<12 Y/O Tonsillectomy FAMILY HISTORY Problem Relation Age of Onset - Cataract Father - No Ocular Disease Mother Social History Tobacco Use - Smoking status: Former Smoker Quit date: 05/21/2000 Years since quittin.6 - Smokeless tobacco: Never Used - Tobacco comment: 1 pack in 3 days Substance Use Topics - Alcohol use: Not Currently Frequency: Monthly or less Drinks per session: 1 or 2 Binge frequency: Never - Drug use: Not Currently ACTIVE PROBLEM LIST Essential Hypertension Anxiety State, Unspecified Cva (Cerebral Vascular Accident) (Hcc) Diabetes Mellitus Type 2, Controlled, Without Complications (Hcc) Hyperlipidemia Ataxia Due to Acute Cerebrovascular Disease Obesity, Class II, Bmi 35-39.9 Cerebral Aneurysm, Nonruptured Obesity, Class III, BMI >= 40 ALLERGIES No Known Allergies MEDICATIONS: lisinopril (ZESTRIL, PRINIVIL) 40 mg tablet, Take 1 tablet by mouth daily at bedtime. metFORMIN (GLUCOPHAGE) 500 mg tablet, Take 1 tablet by mouth twice daily with meals. hydrALAZINE (APRESOLINE) 50 mg tablet, Take 1 tablet by mouth every 8 hours. carvedilol (COREG) 6.25 mg tablet, Take 1 tablet by mouth twice daily with meals. aspirin 81 mg chewable tablet, Take 1 tablet by mouth once daily. amLODIPine (NORVASC) 10 mg tablet, Take 1 tablet by mouth once daily. atorvastatin (LIPITOR) 80 mg tablet, Take 1 tablet by mouth once daily. EXAM:BP 140/73 Pulse 86 Temp 36.8 ?C (98.3 ?F) (Temporal) Resp 16 Ht 163.2 cm (5' 4.25) Wt 110.6 kg (243 lb 12.8 oz) LMP 05/11/2009 SpO2 97% BMI 41.52 kg/m? Last Wt 01/07/20 : 110.6 kg (243 lb 12.8 oz) 12/25/19 : 108.9 kg (240 lb) 11/28/19 : 107.9 kg (237 lb 12.8 oz) 11/24/19 : 112.5 kg (248 lb) PHYSICAL EXAM: General Appearance: Well appearing, alert, in no acute distress, well-hydrated, well nourished.. Skin: Skin color, texture, turgor normal, no suspicious rashes or lesions. Lungs: Lungs clear to auscultation. No wheezing, rhonchi, rales. Heart: RRR with 1/6 systolic murmur, gallop, or rubs. No ectopy. Extremities: No deformities, edema, skin discoloration, clubbing or cyanosis. Good capillary refill. Peripheral Pulses: Normal. Neurologic: Gait normal. Sensation intact Normal monofilament testing BLE ASSESSMENT/PLAN: 1. Controlled type 2 diabetes mellitus without complication, without long-term current use of insulin ([facility]) - ICD9: 250.00, ICD10: E11.9 (primary diagnosis) newly diagnosed - Continue current medications 2. Encounter for screening for human immunodeficiency virus (HIV) - ICD9: V73.89, ICD10: Z11.4 - previously ordered 3. Financial difficulty - ICD9: V60.2, ICD10: Z59.8 - PRIMARY CARE SOCIAL WORK CONSULT 4. Obesity, Class III, BMI 40-49.9 (morbid obesity) ([facility]) - ICD9: 278.01, ICD10: E66.01 5. Hypertension, essential - ICD9: 401.9, ICD10: I10 Improved control. Parameters of monitoring explained to patient. - Continue current medication(s) but move lisinopril to bedtime, be sure to take coreg BID. - Recommended regular aerobic exercise. - Recommend home blood pressure monitoring, to bring results in on next visit - Goal of BP <130/80 - LISINOPRIL 40 MG TABLET Yessenia Rodriguez MD Progress Notes (PT [facility]): Carmen Fine PT 01/03/2020 12:52 PM Signed Episode Visit Count: 7 Therapist That Will Oversee The Plan Of Care: Nessa Moreno Start of Care Date: 11/21/19 Onset Date: 11/11/19 Plan of Care Certification Date: 11/21/19 Next Certification Due Date: 01/20/20 Patient Identified by Name and Date of : Yes REHABILITATION AND SPORTS THERAPY PHYSICAL THERAPY PROGRESS REPORT PLAN OF CARE UPDATE: Assessment: Merle Bradley exhibits improvements in balance, LE strength, and ambulation . She continues to be limited with walking, walking in the community, physical activities and working. She is progressing as expected towards her therapy goals as demonstrated by: documented subjective information on progress and documented objective information regarding gait, ADL's, strength, overall function and patient reported outcome measures. She will benefit from continued skilled therapy requiring strength interventions, gait training, and interventions to improve independence with mobility in order to further improve ability to perform work-related activities and prevent falls and serious injury. Functional gains: Improved gait quality Improved ability to perform transfers Improved balance / decreased risk of falls Increased endurance / activity tolerance Goals for Episode of Care: created on 11/21/19 through 01/20/20; updated 01/03/2020 Patient will increase strength of L LE to equal to R to allow patient to improve gait mechanics/gait pattern.--PROGRESSING Patient will perform sit to stand transfers independently without UE assist. -- SBA PROGRESSING Patient will ambulate without assistive device independently without imbalance. -- SBA PROGRESSING (no device) Patient will demonstrate current home exercise program independently. --MET Patient will complete TUG, 5 x sit to stand, 30 second chair stand test and 4 stage balance test --MET Planned Interventions, Frequency, and Duration: 1x/week, 4 weeks Total Number of Visits Planned: 4 Patient to be seen for Neuromuscular re-education;Therapeut ic exercise;Therapeutic activities;Self-prison management;Gait Training;Patient/Famil y/Caregiver Education PLAN FOR NEXT VISIT: kyle meza SUBJECTIVE: Patient Reason for Visit: Patient reports that she bought new shoes that are closed toed and have more arch support. Patient states that she feels like her balance as improved. She also states that she is unable to walk quickly wihtout her walker, but feels like her endurance has increased. Patient states that she just started driving becuase she has been able to have better control over her right leg and has not felt dizzy as of last week. Patient also reports going back to work the first week in January four days a week. . Pain: Pain Pain Level: 0 Post Treatment Pain Post Treatment Pain Level: 0 PROMIS Scales Higher is Better 12/01/2019 12/03/2019 01/01/2020 Phys Func - Score 36 (moderate dysfunction) - 38 (moderate dysfunction) Phys Func - Percentile 8 % - 12 % Social Roles - Score - 39 (moderate dysfunction) 39 (moderate dysfunction) Social Role - Percentile - 14 % 14 % GH Physical - Score - - - GH Physical - Percentile - - - GH Mental - Score - - - GH Mental - Percentile - - - Self-Eff Symptom - Score - 38 (Low) 41 (Average) Self-Eff Symptom - Percentile - 12 % 18 % T-scores: mean of general population = 50. 5 points is clinically meaningfully difference Percentiles provide an indication of how the patient's score ranks in relation to the general population. Higher percentile rankings indicate better function/quality of life. 50th percentile is the average of the general population and indicates half of respondents had a worse score. Lower is Better 12/03/2019 01/01/2020 Fatigue - Score 74 (severe) 63 (moderate) Fatigue - Percentile 1 % 10 % T-scores: mean of general population = 50. 5 points is clinically meaningfully difference Percentiles provide an indication of how the patient's score ranks in relation to the general population. Higher percentile rankings indicate better function/quality of life. 50th percentile is the average of the general population and indicates half of respondents had a worse score. OBJECTIVE MEASURES WITH LEVEL OF FUNCTION: Posture / Alignment Posture: Forward head;Rounded shoulders LE Strength L Hip Flexion (L2): 4+/5 L Hip ABduction: 5/5 L Knee Extension (L3): 5/5 L Ankle Dorsiflexion (L4): 4+/5 Mobility Sit To Stand: Modified Independent Stand To Sit: Modified Independent Gait Gait: Modified Independent Gait Device: Front-wheeled Walker Functional Performance Test Results 2 Minute Walk Test (feet): 290 feet 2 Minute Walk Test Gait Speed (calculated): 0.74 m/s 30 Second Chair Stand Test: 14 reps 5 Times Sit to Stand Test : 10.1 sec 6 Minute Walk Test (ft): 1030 ft(w/o device) 6 Minute Walk Test Gait Speed (calculated): 0.87 m/s Timed Up and Go (sec): 11.65 sec 4 Stage Balance Test Narrow base of support (sec): 30 sec Semi-tandem base of support (sec): 30 sec Tandem base of support (sec): 30 sec Single leg stance - right (sec): 20.5 sec Single leg stance - left (sec): 30 sec TREATMENT: Neuromuscular Re-Education: 1: TUG:w/ walker, w/o walker 2: 5x sip-uv-ghnuo: w/o hands 3: 30-seconds atw-ow-dazks: w/o hands 4: 6-minute walk test: w/o device, no rest breaks needed, SBA 5: 4-marie balance 6: Reassessment Completed 7: Education: plan of care, progress made in therapy, weening off of walker when appropriate, peoper footwear, safety with going back to work and driving Skilled Intervention: Skilled judgment used to assess appropriate program for balance and coordination activity. Education in proprioceptive/kinesth etic awareness during standing and walking. Patient education as noted. Karriing: Rashmi: Neuromuscular Re-education (81195): 1:1 time: 40 minutes (3 units: 38-52 mins) Total time / Length of visit: 43 minutes Nessa Hansen, YANG I attest that I was present, not working on other tasks, and directing the student during this visit. I have reviewed and agree with the above documentation of this student. Carmen Fine, PT Previous Version Normal [facility] SARS CoV 2 RNA(COVID 19), QU ALITAMARIA LUISA Raza 10-16-2019 SARS CoV 2 RNA NOT DETECTED Normal NOT DETECTED [facility] Comment on above: Result Comment: A Not Detected (negative) test result for this test means that SARS-CoV-2 RNA was not present in the specimen above the limit of detection. A negative result does not rule out the possibility of COVID-19 and should not be used as the sole basis for treatment or patient management decisions. If COVID-19 is still suspected, based on exposure history together with other clinical findings, re-testing should be considered in consultation with public health authorities. Laboratory test results should always be considered in the context of clinical observations and epidemiological data in making a final diagnosis and patient management decisions. REFERENCE RANGE: NOT DETECTED This patient specimen was tested using an FDA EUA pooling method. Negative results from pooled testing should not be treated as definitive. If the patient's clinical signs and symptoms are inconsistent with a negative result or results are necessary for patient management, then the patient should be considered for individual testing. Specimens with low viral loads may not be detected in sample pools due to the decreased sensitivity of pooled testing. Please review the Fact Sheets and FDA authorized labeling available for health care providers and patients using the following websites: [email or web address]/ fact-sheet [email or web address]://[email or web address] TP/ fact-sheet.html This test has been authorized by the FDA under an Emergency Use Authorization (EUA) for use by authorized laboratories. Due to the current public health emergency, [facility] is receiving a high volume of samples from a wide variety of swabs and media for COVID-19 testing. In order to serve patients during this public health crisis, samples from appropriate clinical sources are being tested. Negative test results derived from specimens received in non-commercially manufactured viral collection and transport media, or in media and sample collection kits not yet authorized by FDA for COVID-19 testing should be cautiously evaluated and the patient potentially subjected to extra precautions such as additional clinical monitoring, including collection of an additional specimen. Methodology: Nucleic Acid Amplification Test (NAAT) includes PCR or TMA Additional information about COVID-19 can be found at the [facility] website: [email or web address]. Performed By: #### [id number] #### [facility] [address] [place] [address], [place] [address] Counseling Specialist: Matthias Singh MD Vital Signs Date Time Vital Sign Value Performing Clinician Vasyli litami 05-27-2024 17:07-0400 Body temperature 98.2 [degF] Yohan Roblero AMBULANCE OPERATIONS SUPERVISOR-C Work Phone: [facility] 05-27-2024 17:07-0400 Diastolic blood pressure 80 mm[Hg] Yohan Roblero AMBULANCE OPERATIONS SUPERVISOR-C Work Phone: [facility] 05-27-2024 17:07-0400 Heart rate 78 /min Yohan Roblero AMBULANCE OPERATIONS SUPERVISOR-C Work Phone: [facility] 05-27-2024 17:07-0400 Respiratory rate 18 /min Yohan Roblero AMBULANCE OPERATIONS SUPERVISOR-C Work Phone: [facility] 05-27-2024 17:07-0400 SaO2% (BldA) [Mass fraction] 98 % Yohan Roblero AMBULANCE OPERATIONS SUPERVISOR-C Work Phone: [facility] 05-27-2024 17:07-0400 Systolic blood pressure 140 mm[Hg] Yohan Roblero AMBULANCE OPERATIONS SUPERVISOR-C Work Phone: [facility] 05-27-2024 11:49-0400 Body height 162.56 cm Yohan Roblero AMBULANCE OPERATIONS SUPERVISOR-C Work Phone: [facility] 05-27-2024 11:49-0400 Body mass index (BMI) [Ratio] 29.3 kg/m2 Yohan Roblero AMBULANCE OPERATIONS SUPERVISOR-C Work Phone: [facility] 05-27-2024 11:49-0400 Body weight 77.56 kg Yohan Roblero NP-C Work Phone: [facility] 05-27-2024 11:27-0400 Body mass index (BMI) [Ratio] 29.89 kg/m2 Fernanda Obregon APRN.PAINT BOOTH OPERATOR Work Phone: [facility] 05-27-2024 11:27-0400 Body temperature 98.71 [degF] Fernanda Obregon APRN.PAINT BOOTH OPERATOR Work Phone: [facility] 05-27-2024 11:27-0400 Body weight 79.6 kg Fernanda Obregon APRN.PAINT BOOTH OPERATOR Work Phone: [facility] 05-27-2024 11:27-0400 Diastolic blood pressure 82 mm[Hg] Fernanda Obregon APRN.PAINT BOOTH OPERATOR Work Phone: [facility] 05-27-2024 11:27-0400 Heart rate 80 /min Fernanda Obregon APRN.PAINT BOOTH OPERATOR Work Phone: [facility] 05-27-2024 11:27-0400 Respiratory rate 18 /min Fernanda Obregon APRN.PAINT BOOTH OPERATOR Work Phone: [facility] 05-27-2024 11:27-0400 SaO2% (BldA) [Mass fraction] 98 % Fernanda Obregon APRN.PAINT BOOTH OPERATOR Work Phone: [facility] 05-27-2024 11:27-0400 Systolic blood pressure 132 mm[Hg] Fernanda Obregon APRN.PAINT BOOTH OPERATOR Work Phone: [facility] 05-16-2024 10:17-0500 Body mass index (BMI) [Ratio] 31.2 kg/m2 Maryam Salmeron APRN.PAINT BOOTH OPERATOR Work Phone: [facility] 05-16-2024 10:17-0500 Body weight 83.1 kg Maryam Salmeron APRN.CN P Work Phone: [facility] 05-16-2024 10:17-0500 Diastolic blood pressure 76 mm[Hg] Maryam Salmeron APRN.PAINT BOOTH OPERATOR Work Phone: [facility] 05-16-2024 10:17-0500 Heart rate 68 /min Maryam Mikula CERTIFIED ACTIVITIES DIRECTOR.CN P Work Phone: [facility] 05-16-2024 10:17-0500 Respiratory rate 16 /min Maryam Mikula CERTIFIED ACTIVITIES DIRECTOR.CN P Work Phone: [facility] 05-16-2024 10:17-0500 SaO2% (BldA) [Mass fraction] 98 % Maryam Mikula CERTIFIED ACTIVITIES DIRECTOR.PAINT BOOTH OPERATOR Work Phone: [facility] 05-16-2024 10:17-0500 Systolic blood pressure 112 mm[Hg] Maryam Mikula CERTIFIED ACTIVITIES DIRECTOR.PAINT BOOTH OPERATOR Work Phone: [facility] 05-03-2024 15:18-0500 Body mass index (BMI) [Ratio] 31.6 kg/m2 Yohan Roblero AMBULANCE OPERATIONS SUPERVISOR-C Work Phone: [facility] 05-03-2024 15:18-0500 Body temperature 97.7 [degF] Yohan Roblero AMBULANCE OPERATIONS SUPERVISOR-C Work Phone: [facility] 05-03-2024 15:18-0500 Body weight 83.46 kg Yohan Roblero AMBULANCE OPERATIONS SUPERVISOR-C Work Phone: [facility] 05-03-2024 15:18-0500 Diastolic blood pressure 71 mm[Hg] Yohan Roblero AMBULANCE OPERATIONS SUPERVISOR-C Work Phone: [facility] 05-03-2024 15:18-0500 Heart rate 57 /min Yohan Roblero AMBULANCE OPERATIONS SUPERVISOR-C Work Phone: [facility] 05-03-2024 15:18-0500 Respiratory rate 18 /min Yohan Roblero AMBULANCE OPERATIONS SUPERVISOR-C Work Phone: [facility] 05-03-2024 15:18-0500 SaO2% (BldA) [Mass fraction] 97 % Yohan Roblero AMBULANCE OPERATIONS SUPERVISOR-C Work Phone: [facility] 05-03-2024 15:18-0500 Systolic blood pressure 105 mm[Hg] Yohan RAMOS Work Phone: [facility] 01-05-2024 15:57-0400 Body height 163.2 cm Yessenia Rodriguez MD Work Phone: [facility] 01-05-2024 15:57-0400 Body mass index (BMI) [Ratio] 33 kg/m2 Yessenia Rodriguez MD Work Phone: [facility] 01-05-2024 15:57-0400 Body temperature 98.71 [degF] Yessenia Rodriguez MD Work Phone: [facility] 01-05-2024 15:57-0400 Body weight 87.9 kg Yessenia Rodriguez MD Work Phone: [facility] 01-05-2024 15:57-0400 Diastolic blood pressure 60 mm[Hg] Yessenia Rodriguez MD Work Phone: [facility] 01-05-2024 15:57-0400 Heart rate 63 /min Yessenia Rodriguez MD Work Phone: [facility] 01-05-2024 15:57-0400 SaO2% (BldA) [Mass fraction] 94 % Yessenia Rodriguez MD Work Phone: [facility] 01-05-2024 15:57-0400 Systolic blood pressure 102 mm[Hg] Yessenia Rodriguez MD Work Phone: [facility] 12-04-2023 09:07-0400 Body height 163.2 cm Luz Marina Mcmahan PA-C Work Phone: [facility] 12-04-2023 09:07-0400 Body mass index (BMI) [Ratio] 34.05 kg/m2 Luz Marina Mcmahan PA-C Work Phone: [facility] 12-04-2023 09:07-0400 Body temperature 97.39 [degF] Luz Marina Mcmahan PA-C Work Phone: [facility] 12-04-2023 09:07-0400 Body weight 90.69 kg Luz Marina Mcmahan PA-C Work Phone: [facility] 12-04-2023 09:07-0400 Diastolic blood pressure 63 mm[Hg] Luz Marina Mcmahan PA-C Work Phone: [facility] 12-04-2023 09:07-0400 Heart rate 65 /min Luz Marina Mcmahan PA-C Work Phone: [facility] 12-04-2023 09:07-0400 SaO2% (BldA) [Mass fraction] 98 % Luz Marina Mcmahan PA-C Work Phone: [facility] 12-04-2023 09:07-0400 Systolic blood pressure 93 mm[Hg] Luz Marina Mcmahan PA-C Work Phone: [facility] 07-11-2023 15:15-0400 Body height 163.2 cm Yessenia Rodriguez MD Work Phone: [facility] 07-11-2023 15:15-0400 Body mass index (BMI) [Ratio] 36.34 kg/m2 Yessenia Rodriguez MD Work Phone: [facility] 07-11-2023 15:15-0400 Body temperature 97.59 [degF] Yessenia Rodriguez MD Work Phone: [facility] 07-11-2023 15:15-0400 Body weight 96.8 kg Yessenia Rodriguez MD Work Phone: [facility] 07-11-2023 15:15-0400 Diastolic blood pressure 72 mm[Hg] Yessenia Rodriguez MD Work Phone: [facility] 07-11-2023 15:15-0400 Heart rate 78 /min Yessenia Rodriguez MD Work Phone: [facility] 07-11-2023 15:15-0400 SaO2% (BldA) [Mass fraction] 97 % Yessenia Rodriguez MD Work Phone: [facility] 07-11-2023 15:15-0400 Systolic blood pressure 110 mm[Hg] Yessenia Rodriguez MD Work Phone: [facility] 11-15-2022 14:18-0400 Body height 163.2 cm Foreign Olivo Work Phone: [facility] 11-15-2022 14:18-0400 Body weight 101.61 kg Foreign Olivo Work Phone: [facility] 11-15-2022 14:18-0400 Diastolic blood pressure 68 mm[Hg] Foreign Gilbert MD Work Phone: [facility] 11-15-2022 14:18-0400 Systolic blood pressure 118 mm[Hg] Foreign Gilbert MD Work Phone: [facility] 10-25-2022 15:37-0400 Body height 160 cm Yessenia Rodriguez MD Work Phone: [facility] 10-25-2022 15:37-0400 Body temperature 99.3 [degF] Yessenia Rodriguez MD Work Phone: [facility] 10-25-2022 15:37-0400 Body weight 101.88 kg Yessenia Rodriguez MD Work Phone: [facility] 10-25-2022 15:37-0400 Diastolic blood pressure 72 mm[Hg] Yessenia Rodriguez MD Work Phone: [facility] 10-25-2022 15:37-0400 Heart rate 95 /min Yessenia Rodriguez MD Work Phone: [facility] 10-25-2022 15:37-0400 SaO2% (BldA) [Mass fraction] 97 % Yessenia Rodriguez MD Work Phone: [facility] 10-25-2022 15:37-0400 Systolic blood pressure 120 mm[Hg] Yessenia Rodriguez MD Work Phone: [facility] 10-19-2022 10:02-0400 Body height 160 cm Patrica Lennon DO Work Phone: [facility] 10-19-2022 10:02-0400 Body weight 101.61 kg Patrica Lennon DO Work Phone: [facility] 10-19-2022 10:02-0400 Diastolic blood pressure 82 mm[Hg] Patrica Lennon DO Work Phone: [facility] 10-19-2022 10:02-0400 Heart rate 72 /min Patrica Lennon DO Work Phone: [facility] 10-19-2022 10:02-0400 SaO2% (BldA) [Mass fraction] 98 % Patrica Lennon DO Work Phone: [facility] 10-19-2022 10:02-0400 Systolic blood pressure 128 mm[Hg] Patrica Lennon DO Work Phone: [facility] 08-17-2022 08:17-0400 Body height 160 cm Rose soliman CERTIFIED ACTIVITIES DIRECTOR.PAINT BOOTH OPERATOR Work Phone: [facility] 08-17-2022 08:17-0400 Body temperature 97.7 [degF] Rose soliman CERTIFIED ACTIVITIES DIRECTOR.PAINT BOOTH OPERATOR Work Phone: [facility] 08-17-2022 08:17-0400 Body weight 99.34 kg Rose Esaujabier soliman CERTIFIED ACTIVITIES DIRECTOR.PAINT BOOTH OPERATOR Work Phone: [facility] 08-17-2022 08:17-0400 Diastolic blood pressure 84 mm[Hg] Rose Tyler CERTIFIED ACTIVITIES DIRECTOR.PAINT BOOTH OPERATOR Work Phone: [facility] 08-17-2022 08:17-0400 Heart rate 71 /min Rose soliman CERTIFIED ACTIVITIES DIRECTOR.PAINT BOOTH OPERATOR Work Phone: [facility] 08-17-2022 08:17-0400 Respiratory rate 16 /min Rose soliman CERTIFIED ACTIVITIES DIRECTOR.PAINT BOOTH OPERATOR Work Phone: [facility] 08-17-2022 08:17-0400 SaO2% (BldA) [Mass fraction] 97 % Rose Tyler CERTIFIED ACTIVITIES DIRECTOR.PAINT BOOTH OPERATOR Work Phone: [facility] 08-17-2022 08:17-0400 Systolic blood pressure 120 mm[Hg] Rose Tyler CERTIFIED ACTIVITIES DIRECTOR.PAINT BOOTH OPERATOR Work Phone: [facility] 07-27-2022 11:34-0400 Body temperature 97.5 [degF] Aniyah Irizarry CERTIFIED ACTIVITIES DIRECTOR.PAINT BOOTH OPERATOR Work Phone: [facility] 07-27-2022 11:34-0400 Diastolic blood pressure 79 mm[Hg] Aniyah Irizarry CERTIFIED ACTIVITIES DIRECTOR.PAINT BOOTH OPERATOR Work Phone: [facility] 07-27-2022 11:34-0400 Heart rate 72 /min Aniyah Irizarry CERTIFIED ACTIVITIES DIRECTOR.PAINT BOOTH OPERATOR Work Phone: [facility] 07-27-2022 11:34-0400 SaO2% (BldA) [Mass fraction] 96 % Aniyah Irizarry CERTIFIED ACTIVITIES DIRECTOR.PAINT BOOTH OPERATOR Work Phone: [facility] 07-27-2022 11:34-0400 Systolic blood pressure 118 mm[Hg] Aniyah Irizarry CERTIFIED ACTIVITIES DIRECTOR.PAINT BOOTH OPERATOR Work Phone: [facility] 06-29-2022 14:12-0400 Body temperature 98.2 [degF] Aniyah Irizarry CERTIFIED ACTIVITIES DIRECTOR.PAINT BOOTH OPERATOR Work Phone: [facility] 06-29-2022 14:12-0400 Diastolic blood pressure 79 mm[Hg] Aniyah Irizarry CERTIFIED ACTIVITIES DIRECTOR.PAINT BOOTH OPERATOR Work Phone: [facility] 06-29-2022 14:12-0400 Heart rate 85 /min Aniyah Irizarry CERTIFIED ACTIVITIES DIRECTOR.PAINT BOOTH OPERATOR Work Phone: [facility] 06-29-2022 14:12-0400 SaO2% (BldA) [Mass fraction] 97 % Aniyah Irizarry CERTIFIED ACTIVITIES DIRECTOR.PAINT BOOTH OPERATOR Work Phone: [facility] 06-29-2022 14:12-0400 Systolic blood pressure 128 mm[Hg] Aniyah Amyrinmary grace CERTIFIED ACTIVITIES DIRECTOR.PAINT BOOTH OPERATOR Work Phone: [facility] 06-15-2022 08:21-0400 Body temperature 98.29 [degF] Aniyah Irizarry APRN.PAINT BOOTH OPERATOR Work Phone: [facility] 06-15-2022 08:21-0400 Diastolic blood pressure 74 mm[Hg] Aniyah Irizarry APRN.PAINT BOOTH OPERATOR Work Phone: [facility] 06-15-2022 08:21-0400 Heart rate 80 /min Aniyah Irizarry APRN.PAINT BOOTH OPERATOR Work Phone: [facility] 06-15-2022 08:21-0400 SaO2% (BldA) [Mass fraction] 96 % Aniyah Irizarry APRN.PAINT BOOTH OPERATOR Work Phone: [facility] 06-15-2022 08:21-0400 Systolic blood pressure 112 mm[Hg] Aniyah Irizarry APRN.PAINT BOOTH OPERATOR Work Phone: [facility] 06-06-2022 12:46-0400 Body height 162.6 cm Maryam Salmeron APRN.CN P Work Phone: [facility] 06-06-2022 12:46-0400 Body temperature 98.6 [degF] Maryam Salmeron APRN.CN P Work Phone: [facility] 06-06-2022 12:46-0400 Body weight 102.51 kg Maryam Salmeron APRN.CN P Work Phone: [facility] 06-06-2022 12:46-0400 Diastolic blood pressure 78 mm[Hg] Maryam Salmeron APRN.PAINT BOOTH OPERATOR Work Phone: [facility] 06-06-2022 12:46-0400 Heart rate 78 /min Maryam Salmeron APRN.CN P Work Phone: [facility] 06-06-2022 12:46-0400 Respiratory rate 18 /min Maryam Salmeron APRN.CN P Work Phone: [facility] 06-06-2022 12:46-0400 SaO2% (BldA) [Mass fraction] 95 % Maryam Mikula CERTIFIED ACTIVITIES DIRECTOR.PAINT BOOTH OPERATOR Work Phone: [facility] 06-06-2022 12:46-0400 Systolic blood pressure 126 mm[Hg] Maryam Mikula CERTIFIED ACTIVITIES DIRECTOR.PAINT BOOTH OPERATOR Work Phone: [facility] 05-09-2022 13:50-0500 Body height 162.6 cm Maryam Mikula CERTIFIED ACTIVITIES DIRECTOR.CN P Work Phone: [facility] 05-09-2022 13:50-0500 Body temperature 99 [degF] Maryam Mikula CERTIFIED ACTIVITIES DIRECTOR.CN P Work Phone: [facility] 05-09-2022 13:50-0500 Body weight 105.23 kg Maryam Mikula CERTIFIED ACTIVITIES DIRECTOR.CN P Work Phone: [facility] 05-09-2022 13:50-0500 Diastolic blood pressure 68 mm[Hg] Maryam Mikula CERTIFIED ACTIVITIES DIRECTOR.PAINT BOOTH OPERATOR Work Phone: [facility] 05-09-2022 13:50-0500 Heart rate 73 /min Maryam Mikula CERTIFIED ACTIVITIES DIRECTOR.CN P Work Phone: [facility] 05-09-2022 13:50-0500 Respiratory rate 16 /min Maryam Mikula CERTIFIED ACTIVITIES DIRECTOR.CN P Work Phone: [facility] 05-09-2022 13:50-0500 SaO2% (BldA) [Mass fraction] 95 % Maryam Mikula CERTIFIED ACTIVITIES DIRECTOR.PAINT BOOTH OPERATOR Work Phone: [facility] 05-09-2022 13:50-0500 Systolic blood pressure 123 mm[Hg] Maryam Mikula CERTIFIED ACTIVITIES DIRECTOR.PAINT BOOTH OPERATOR Work Phone: [facility] 04-11-2022 13:11-0500 Body temperature 99 [degF] Maryam Mikula CERTIFIED ACTIVITIES DIRECTOR.CN P Work Phone: [facility] 04-11-2022 13:11-0500 Diastolic blood pressure 77 mm[Hg] Maryam Mikula CERTIFIED ACTIVITIES DIRECTOR.PAINT BOOTH OPERATOR Work Phone: [facility] 04-11-2022 13:11-0500 Heart rate 82 /min Maryam Mikula CERTIFIED ACTIVITIES DIRECTOR.CN P Work Phone: [facility] 04-11-2022 13:11-0500 SaO2% (BldA) [Mass fraction] 95 % Maryam Mikula CERTIFIED ACTIVITIES DIRECTOR.PAINT BOOTH OPERATOR Work Phone: [facility] 04-11-2022 13:11-0500 Systolic blood pressure 132 mm[Hg] Maryam Mikula CERTIFIED ACTIVITIES DIRECTOR.PAINT BOOTH OPERATOR Work Phone: [facility] 03-22-2022 14:10-0500 Body height 162.6 cm Van Fagert CERTIFIED ACTIVITIES DIRECTOR.PAINT BOOTH OPERATOR Work Phone: [facility] 03-22-2022 14:10-0500 Diastolic blood pressure 60 mm[Hg] Van Fagert CERTIFIED ACTIVITIES DIRECTOR.PAINT BOOTH OPERATOR Work Phone: [facility] 03-22-2022 14:10-0500 Heart rate 73 /min Van Fagert CERTIFIED ACTIVITIES DIRECTOR.PAINT BOOTH OPERATOR Work Phone: [facility] 03-22-2022 14:10-0500 SaO2% (BldA) [Mass fraction] 98 % Van Fagert CERTIFIED ACTIVITIES DIRECTOR.PAINT BOOTH OPERATOR Work Phone: [facility] 03-22-2022 14:10-0500 Systolic blood pressure 111 mm[Hg] Van Fagert CERTIFIED ACTIVITIES DIRECTOR.PAINT BOOTH OPERATOR Work Phone: [facility] 02-16-2022 09:30-0500 Diastolic blood pressure 75 mm[Hg] Dominick Mendoza MD Work Phone: [facility] 02-16-2022 09:30-0500 Heart rate 62 /min Dominick Mendoza MD Work Phone: [facility] 02-16-2022 09:30-0500 Respiratory rate 14 /min Dominick Mendoza MD Work Phone: [facility] 02-16-2022 09:30-0500 SaO2% (BldA) [Mass fraction] 95 % Dominick Mendoza MD Work Phone: [facility] 02-16-2022 09:30-0500 Systolic blood pressure 114 mm[Hg] Dominick Mendoza MD Work Phone: [facility] 02-16-2022 09:00-0500 Body temperature 97.2 [degF] Dominick Mendoza MD Work Phone: [facility] 12-08-2021 13:00-0400 Body height 162.6 cm Cerebrovascular Surgical Work Phone: [facility] 12-08-2021 13:00-0400 Body temperature 97.11 [degF] [facility]erebro[facility] Surgical Work Phone: [facility] 12-08-2021 13:00-0400 Body weight 101.61 kg Cerebrovascular Surgical Work Phone: [facility] 12-08-2021 13:00-0400 Diastolic blood pressure 64 mm[Hg] Cerebrovascular Surgical Work Phone: [facility] 12-08-2021 13:00-0400 Heart rate 93 /min Cerebrovascular Surgical Work Phone: [facility] 12-08-2021 13:00-0400 Respiratory rate 14 /min Cerebrovascular Surgical Work Phone: [facility] 12-08-2021 13:00-0400 SaO2% (BldA) [Mass fraction] 100 % [facility]erebrovascular Surgical Work Phone: [facility] 12-08-2021 13:00-0400 Systolic blood pressure 108 mm[Hg] Cerebrovascular Surgical Work Phone: [facility] 06-25-2021 12:16-0400 Body temperature 97.9 [degF] Amalia Diaz RN Work Phone: [facility] 06-25-2021 12:16-0400 Diastolic blood pressure 64 mm[Hg] Amalia Diaz RN Work Phone: [facility] 06-25-2021 12:16-0400 Heart rate 72 /min Amalia Diaz RN Work Phone: [facility] 06-25-2021 12:16-0400 Respiratory rate 18 /min Amalia Diaz RN Work Phone: [facility] 06-25-2021 12:16-0400 SaO2% (BldA) [Mass fraction] 97 % Amalia Diaz RN Work Phone: [facility] 06-25-2021 12:16-0400 Systolic blood pressure 118 mm[Hg] Amalia Diaz RN Work Phone: [facility] 06-21-2021 16:03-0400 Body temperature 96.8 [degF] Payton Ivaos RN Work Phone: [facility] 06-21-2021 16:03-0400 Diastolic blood pressure 88 mm[Hg] Payton Erdos RN Work Phone: [facility] 06-21-2021 16:03-0400 Heart rate 68 /min Payton Erdos RN Work Phone: [facility] 06-21-2021 16:03-0400 Respiratory rate 18 /min Payton Erdos RN Work Phone: [facility] 06-21-2021 16:03-0400 SaO2% (BldA) [Mass fraction] 97 % Payton Erdos RN Work Phone: [facility] 06-21-2021 16:03-0400 Systolic blood pressure 140 mm[Hg] Payton Erdos RN Work Phone: [facility] 06-16-2021 14:15-0400 Body height 162.6 cm Van Fagert CERTIFIED ACTIVITIES DIRECTOR.PAINT BOOTH OPERATOR Work Phone: [facility] 06-16-2021 14:15-0400 Body weight 101.15 kg Van Fagert CERTIFIED ACTIVITIES DIRECTOR.PAINT BOOTH OPERATOR Work Phone: [facility] 06-16-2021 14:15-0400 Diastolic blood pressure 71 mm[Hg] Van Fagert CERTIFIED ACTIVITIES DIRECTOR.PAINT BOOTH OPERATOR Work Phone: [facility] 06-16-2021 14:15-0400 Heart rate 75 /min Van Fagert CERTIFIED ACTIVITIES DIRECTOR.PAINT BOOTH OPERATOR Work Phone: [facility] 06-16-2021 14:15-0400 Respiratory rate 14 /min Van Fagert CERTIFIED ACTIVITIES DIRECTOR.PAINT BOOTH OPERATOR Work Phone: [facility] 06-16-2021 14:15-0400 SaO2% (BldA) [Mass fraction] 98 % Van Fagert CERTIFIED ACTIVITIES DIRECTOR.PAINT BOOTH OPERATOR Work Phone: [facility] 06-16-2021 14:15-0400 Systolic blood pressure 115 mm[Hg] Van Fagert CERTIFIED ACTIVITIES DIRECTOR.PAINT BOOTH OPERATOR Work Phone: [facility] 06-14-2021 14:31-0400 Body temperature 98.49 [degF] Amalia Diaz RN Work Phone: [facility] 06-14-2021 14:31-0400 Diastolic blood pressure 64 mm[Hg] Amalia Diaz RN Work Phone: [facility] 06-14-2021 14:31-0400 Heart rate 76 /min Amalia Diaz RN Work Phone: [facility] 06-14-2021 14:31-0400 Respiratory rate 20 /min Amalia Diaz RN Work Phone: [facility] 06-14-2021 14:31-0400 SaO2% (BldA) [Mass fraction] 98 % Amalia Diaz RN Work Phone: [facility] 06-14-2021 14:31-0400 Systolic blood pressure 110 mm[Hg] Amalia Diaz RN Work Phone: [facility] 06-07-2021 14:15-0400 Body temperature 98.91 [degF] Mima Zuniga RN Work Phone: [facility] 06-07-2021 14:15-0400 Diastolic blood pressure 78 mm[Hg] Mima Zuniga RN Work Phone: [facility] 06-07-2021 14:15-0400 Heart rate 78 /min Mima Zuniga RN Work Phone: [facility] 06-07-2021 14:15-0400 Respiratory rate 20 /min Mima Zuniga RN Work Phone: [facility] 06-07-2021 14:15-0400 SaO2% (BldA) [Mass fraction] 97 % Mima Zuniga RN Work Phone: [facility] 06-07-2021 14:15-0400 Systolic blood pressure 142 mm[Hg] iMma Zuniga RN Work Phone: [facility] 05-31-2021 15:57-0400 Body temperature 98.2 [degF] Payton Haas RN Work Phone: [facility] 05-31-2021 15:57-0400 Diastolic blood pressure 82 mm[Hg] Payton Haas RN Work Phone: [facility] 05-31-2021 15:57-0400 Heart rate 68 /min Payton Haas RN Work Phone: [facility] 05-31-2021 15:57-0400 Respiratory rate 18 /min Payton Haas RN Work Phone: [facility] 05-31-2021 15:57-0400 SaO2% (BldA) [Mass fraction] 97 % Payton Haas RN Work Phone: [facility] 05-31-2021 15:57-0400 Systolic blood pressure 138 mm[Hg] Payton Haas RN Work Phone: [facility] Encounters Encounter Date Encounter Type Care Provider Facility Start: 01-15-2025 End: 01-15-2025 ambulatory YOHAN [facility] Start: 11-22-2024 End: 11-22-2024 ambulatory [facility] Start: 07-02-2024 End: 07-02-2024 ambulatory [facility] Start: 05-31-2024 End: 05-31-2024 Telephone encounter Adilene Lino MD Work Phone: [facility] Start: 05-30-2024 End: 05-30-2024 Telephone encounter Adilene Lino MD Work Phone: [facility] Start: 05-27-2024 End: 05-27-2024 Emergency department patient visit Yohan Roblero NP Facility:[facility] Start: 05-27-2024 End: 05-27-2024 ambulatory YOHAN ROBLERO Facility:[facility] Start: 05-27-2024 End: 05-27-2024 Patient encounter procedure Fernanda Obregon CERTIFIED ACTIVITIES DIRECTOR.PAINT BOOTH OPERATOR Work Phone: [facility] Comment on above: Abdominal pain, unsp ecified abdominal location (Primary Dx) Start: 05-16-2024 End: 05-16-2024 Patient encounter procedure Maryam Salmeron APRN.PAINT BOOTH OPERATOR Work Phone: NEUROLOGY Comment on above: Intracranial aneurys m (Primary Dx); Hx of craniotomy; Skin ulcer of scalp, limited to breakdown of skin (HCC) Start: 05-16-2024 End: 05-16-2024 ambulatory MARYAM SALMERON Facility:[facility] Start: 05-07-2024 End: 05-07-2024 Telephone encounter Self Karla [facility] [place] Comment on above: Triage (Onbase_ [facility]: [facility]_ Requested to have images pushed through ) Start: 05-03-2024 End: 05-03-[address] José Miguel Bee MD [facility] Work Phone: Start: 05-03-2024 End: 05-03-2024 ambulatory Yohan Roblero NP [place] Start: 04-22-2024 End: 04-22-2024 ambulatory YOHAN ROBLERO [facility] Start: 04-12-2024 End: 04-12-2024 ambulatory Trang Gibbs [facility] Start: 04-12-2024 End: 04-12-2024 Patient encounter procedure [facility] Comment on above: Population Health Na vigation Outreach ([facility]) Start: 03-08-2024 End: 03-08-2024 ambulatory Trang Gibbs MA [facility] Start: 03-08-2024 End: 03-08-2024 Patient encounter procedure Trang Gibbs MA [facility] Comment on above: Population Health Na vigation Out[facility] Start: 02-07-2024 End: 02-07-2024 ambulatory YESSENIA RODRIGUEZ Facility:[facility] Start: 02-07-2024 End: 02-07-2024 Subsequent hospital visit by physician Screen Mammo [facility] Comment on above: Encounter for screen ing mammogram for breast cancer [Z12.31] Start: 02-01-2024 End: 02-02-2024 Refill Luz Marina Mcmahan PA-C Work Phone: [facility] Comment on above: Refill Request Start: 01-20-2024 End: 01-22-2024 ambulatory Yessenia Rodriguez MD Work Phone: [facility] Comment on above: Advair vs Symbicort Start: 01-08-2024 End: 01-08-2024 ambulatory Trang Gibbs [facility] Start: 01-08-2024 End: 01-08-2024 Patient encounter procedure Trang Gibbs MA [facility] Comment on above: Population Health Na vigation Outreach [facility] Start: 01-08-2024 End: 01-10-2024 Telephone encounter Yessenia Rodriguez MD Work Phone: [facility] Comment on above: Medication Problem Start: 01-05-2024 End: 01-05-2024 ambulatory YESSENIA RODRIGUEZ Facility:[facility] Start: 01-05-2024 End: 01-05-2024 Patient encounter procedure Yessenia Rodriguez MD Work Phone: [facility] Comment on above: Rash (Primary Dx); Hx of craniotomy; Skin ulcer of scalp, limited to breakdown of skin (HCC); Wound dehiscence; Encounter for immunization; Controlled type 2 diabetes mellitus without complication, without long-term current use of insulin (HCC); Gastroesophageal reflux disease without esophagitis; Bronchospasm Start: 12-19-2023 End: 12-19-2023 ambulatory Yessenia Rodriguez MD Work Phone: [facility] Comment on above: Nauseous Start: 12-18-2023 End: 12-18-2023 ambulatory Yessenia Rodriguez MD Work Phone: [facility] Comment on above: Radh Start: 12-04-2023 End: 12-04-2023 Patient encounter procedure Luz Marina Mcmahan PA-C Work Phone: [facility] Comment on above: Skin rash (Primary D x) Start: 11-27-2023 End: 11-27-2023 ambulatory Yessenia Rodriguez MD Work Phone: [facility] Comment on above: Rash; Nurse Triage C all Start: 10-27-2023 End: 10-30-2023 ambulatory Yessenia Rodriguez MD Work Phone: [facility] Comment on above: Good afternoon! Start: 08-28-2023 Telephone encounter Yessenia farris MD Work Phone: [facility] Comment on above: PAP Therapy Follow U p Start: 07-11-2023 End: 07-11-2023 Patient encounter procedure Yessenia Rodriguez MD Work Phone: [facility] Comment on above: Spinal stenosis of l umbar region with neurogenic claudication (Primary Dx); FABIOLA (obstructive sleep apnea); Intracranial aneurysm; Subaortic membrane; Hyperlipidemia associated with type 2 diabetes mellitus (HCC) (HCC); Hypertension, essential; Controlled type 2 diabetes mellitus without complication, without long-term current use of insulin (HCC); Lacunar stroke (HCC); Seborrheic dermatitis Start: 07-10-2023 ambulatory Yessenia Olivo Work Phone: [facility] Comment on above: Blood test today Start: 05-23-2023 Refill Aniyah pruitt APRN.CNP Work Phone: Plastic Surgery Comment on above: Refill Request Start: 04-24-2023 E-mail encounter fro m caregiver Patrica Lennon DO Work Phone: [facility] Start: 04-24-2023 Patient encounter procedure Patrica Lennon DO Work Phone: Cardiology Comment on above: Appointment Start: 03-29-2023 ambulatory Yessenia Olivo Work Phone: [facility] Start: 01-24-2023 ambulatory Yessenia Olivo Work Phone: [facility] Comment on above: Disability Start: 12-09-2022 ambulatory Yessenia Olivo Work Phone: [facility] Comment on above: Medication renewal Start: 11-18-2022 ambulatory Yessenia Gaffney D Work Phone: [facility] Comment on above: Handicap plackard Start: 11-15-2022 End: 11-15-2022 Patient encounter procedure Foreign Gilbert MD Work Phone: Plastic Surgery Comment on above: Hx of craniotomy; Postoperative wound dehiscence, subsequent encounter; Drainage from wound Start: 10-27-2022 Telephone encounter Gregg Wells RN Cardiology Comment on above: Results Start: 10-25-2022 End: 10-25-2022 Patient encounter procedure Yessenia Rodriguez MD Work Phone: [facility] Comment on above: Controlled type 2 di abetes mellitus without complication, without long-term current use of insulin (HCC) (Primary Dx); Subaortic membrane; Anxiety; Obesity, Class II, BMI 35-39.9 Start: 10-25-2022 ambulatory YESSENIA MICHAEL Facility:[facility] Start: 10-25-2022 ambulatory YESSENIA DISTBRENTON Facility:[facility] Start: 10-25-2022 End: 10-25-2022 Subsequent hospital visit by physician [facility] Work Phone: Cardiology Lab Comment on above: GONCALVES (dyspnea on exer tion) [R06.09] Start: 10-25-2022 End: 10-25-2022 Subsequent hospital visit by physician [facility] Work Phone: Molecular Imaging Comment on above: GONCALVES (dyspnea on exer tion) [R06.09] Start: 10-24-2022 Telephone encounter Carole julian RN Cardiology Lab Comment on above: Reminder Call Start: 10-19-2022 End: 10-19-2022 Patient encounter procedure Patrica Lennon DO Work Phone: Cardiology Comment on above: GONCALVES (dyspnea on exer tion) (Primary Dx); Precordial pain; Hypertension, essential; Mixed hyperlipidemia; FABIOLA (obstructive sleep apnea); Subaortic membrane Start: 09-06-2022 End: 09-06-2022 ambulatory Pulm Stro Work Phone: Pulmonary Lab Comment on above: Spirometry Start: 09-06-2022 End: 09-06-2022 Patient encounter procedure Pulm Lab [facility] Work Phone: [facility] Start: 08-17-2022 ambulatory UNKNOWN PROVIDER Facili ty:[facility] Start: 08-17-2022 End: 08-17-2022 Subsequent hospital visit by physician [facility]r [facility] Comment on above: GONCALVES (dyspnea on exer tion) [R06.09] Start: 08-17-2022 End: 08-17-2022 Office outpatient visit 25 minutes Rose Tyler APRN.PAINT BOOTH OPERATOR Work Phone: [facility] Comment on above: GONCALVES (dyspnea on exer tion) (Primary Dx); Anxiety; Irritable bowel syndrome with diarrhea Start: 08-16-2022 ambulatory Yessenia Olivo Work Phone: [facility] Comment on above: Breathing Problem Start: 08-10-2022 Telephone encounter Luz Marina Carcamo PA-C Work Phone: [facility] Comment on above: Patient Update Start: 07-27-2022 End: 07-27-2022 ambulatory ANIYAH IRIZARRY Facility:[facility] Start: 07-27-2022 End: 07-27-2022 Patient encounter procedure Aniyah Irizarry CERTIFIED ACTIVITIES DIRECTOR.PAINT BOOTH OPERATOR Work Phone: Plastic Surgery Comment on above: Skin ulcer of scalp, limited to breakdown of skin (HCC) (Primary Dx); Hx of craniotomy Start: 07-22-2022 Telephone encounter Joceline hager PROCESS DESIGN ENGINEER Work Phone: [facility] Comment on above: PAP Therapy Follow U p (P contacted via [employer]) Start: 07-13-2022 End: 07-13-2022 ambulatory ANIYAH IRIZARRY Facility:[facility] Start: 06-29-2022 End: 06-29-2022 ambulatory ANIYAH IRIZARRY Facility:[facility] Start: 06-29-2022 End: 06-29-2022 Patient encounter procedure Aniyah Irizarry APRN.PAINT BOOTH OPERATOR Work Phone: Plastic Surgery Comment on above: Skin ulcer of scalp, limited to breakdown of skin (HCC) (Primary Dx); Hx of craniotomy Start: 06-24-2022 Telephone encounter Carole julian RN Cardiology Lab Comment on above: Reminder Call Start: 06-20-2022 Telephone encounter Aniyah Irizarry APRN.PAINT BOOTH OPERATOR Work Phone: Plastic Surgery Comment on above: Results; Orders Start: 06-15-2022 End: 06-15-2022 ambulatory ANIYAH IRIZARRY Facility:[facility] Start: 06-15-2022 End: 06-15-2022 Patient encounter procedure Aniyah Irizarry APRN.PAINT BOOTH OPERATOR Work Phone: Plastic Surgery Comment on above: Skin ulcer of scalp, limited to breakdown of skin (HCC) (Primary Dx); Hx of craniotomy Start: 06-09-2022 ambulatory Yessenia Olivo Work Phone: [facility] [place] Comment on above: Out of breath Nurse Triage Call Start: 06-06-2022 End: 06-06-2022 Patient encounter procedure Maryam Salmeron APRN.PAINT BOOTH OPERATOR Work Phone: NEUROLOGY Comment on above: Hyperlipidemia assoc iated with type 2 diabetes mellitus (HCC); Lacunar stroke (HCC) Start: 05-31-2022 Follow-up encounter Joceline hager PROCESS DESIGN ENGINEER Work Phone: [facility] Comment on above: Pap follow up (Prima ry Dx) Start: 05-31-2022 Telemedicine consultation with patient Joceline Lofton PROCESS DESIGN ENGINEER Work Phone: [facility] Start: 05-30-2022 Telephone encounter Yessenia farris MD Work Phone: [facility] Comment on above: Orders Start: 05-26-2022 End: 05-26-2022 ambulatory Joceline Lofton PROCESS DESIGN ENGINEER Work Phone: [facility] Comment on above: Cpap setup (Primary Dx) Start: 05-26-2022 End: 05-26-2022 Telemedicine consultation with patient Joceline Lofton PROCESS DESIGN ENGINEER Work Phone: [facility] Start: 05-23-2022 End: 05-23-2022 ambulatory Kimmy Ghotra PROCESS DESIGN ENGINEER Work Phone: [facility] Start: 05-23-2022 End: 05-23-2022 Follow-up encounter Kimmy Brandin PROCESS DESIGN ENGINEER Work Phone: [facility] Comment on above: High Blood Sugar (/) ; PAP Therapy Follow Up Start: 05-18-2022 E-mail encounter tian m caregiver Maryam Salmeron APRN.PAINT BOOTH OPERATOR Work Phone: [facility] Start: 05-18-2022 Follow-up encounter Maryam pereira APRN.PAINT BOOTH OPERATOR Work Phone: [facility] Comment on above: schedule follow-up a ppointments Start: 05-18-2022 Telephone encounter Maryam pereira APRN.PAINT BOOTH OPERATOR Work Phone: [facility] Comment on above: Appointment Start: 05-16-2022 Orders Only Maryam Cortez PRN.PAINT BOOTH OPERATOR Work Phone: NEUROLOGY Comment on above: Hx of craniotomy (Pr imary Dx); Postoperative wound dehiscence, subsequent encounter; Drainage from wound Start: 05-12-2022 E-mail encounter tian m caregiver Maryam Salmeron APRN.PAINT BOOTH OPERATOR Work Phone: [facility] Start: 05-12-2022 Follow-up encounter Maryam pereira APRN.PAINT BOOTH OPERATOR Work Phone: NEUROLOGY Comment on above: Follow-up from Maral mueller's visit Start: 05-09-2022 End: 05-09-2022 Patient encounter procedure Maryam Salmeron APRN.PAINT BOOTH OPERATOR Work Phone: NEUROLOGY Comment on above: Hx of craniotomy (Pr imary Dx); Intracranial aneurysm Start: 05-04-2022 Telephone encounter Go Whelan SS [facility] Comment on above: PAP Therapy Follow U p Start: 05-03-2022 ambulatory NERISSA Arrieta y:[facility] Start: 05-03-2022 End: 05-03-2022 Subsequent hospital visit by physician [facility] (1.5t) Radiology Comment on above: Intracranial aneurys m [I67.1] Start: 04-28-2022 Telephone encounter Inna SANDOVAL S [facility] Comment on above: PAP Therapy Follow U p Start: 04-26-2022 ambulatory Maryam BUIPAINT BOOTH OPERATOR Work Phone: [facility] Comment on above: wound check Start: 04-26-2022 E-mail encounter tian m caregiver Maryam Salmeron APRN.PAINT BOOTH OPERATOR Work Phone: [facility] Start: 04-13-2022 Telephone encounter Yessenia farris MD Work Phone: [facility] [place] Comment on above: Patient Update Start: 04-11-2022 End: 04-11-2022 Patient encounter procedure Maryam Salmeron APRN.PAINT BOOTH OPERATOR Work Phone: NEUROLOGY Comment on above: Anterior cerebral an eurysm (Primary Dx); Status post aneurysm repair; History of craniotomy; Wound drainage Start: 04-05-2022 End: 04-06-2022 ambulatory Yessenia Rodriguez MD Work Phone: Internal Medicine [facility] Start: 04-02-2022 Orders Only Adilene Lino MD Work Phone: [facility] Comment on above: Acquired skull defec t (Primary Dx); Intracranial aneurysm; Postoperative infection, unspecified type, subsequent encounter; Postoperative wound dehiscence, initial encounter; Nonruptured cerebral aneurysm Start: 03-28-2022 Telephone encounter Abbe Franco APRN.PAINT BOOTH OPERATOR Work Phone: [facility] Center Comment on above: Dirt [employer]or - O ther Start: 03-22-2022 End: 03-22-2022 Patient encounter procedure Abbe Franco CERTIFIED ACTIVITIES DIRECTOR.PAINT BOOTH OPERATOR Work Phone: [facility] Comment on above: Wound drainage (Prim lissett Dx); Hx of craniotomy Start: 02-25-2022 ambulatory Abbe Franco APR N.PAINT BOOTH OPERATOR Work Phone: Endovascular Center Comment on above: Soar on head Start: 02-16-2022 ambulatory DEEPA Bazan cility:[facility] Start: 02-16-2022 End: 02-16-2022 Subsequent hospital visit by physician Dominick Mendoza MD Work Phone: [facility] Endoscopy Comment on above: Screening for colon cancer [Z12.11] Start: 02-11-2022 ambulatory Yessenia Olivo Work Phone: [facility] Comment on above: Colonoscopy Start: 01-25-2022 ambulatory Yessenia Olivo Work Phone: [facility] [place] Start: 12-27-2021 ambulatory UNKNOWN PROVIDER Facili ty:[facility] Start: 12-27-2021 End: 12-27-2021 Subsequent hospital visit by physician [facility] Radiology Start: 12-08-2021 End: 12-08-2021 Nursing evaluation of patient and report Cerebrovascular Nurse Surgical Work Phone: Cerebrovascular Center Comment on above: Acquired skull defec t (Primary Dx) Start: 11-23-2021 ambulatory Yessenia Olivo Work Phone: Internal [facility] Start: 09-22-2021 ambulatory Yessenia Olivo Work Phone: Internal [facility] Start: 08-26-2021 ambulatory [facility] Provider [facility] Comment on above: Colorectal Screening . Start: 08-26-2021 E-mail encounter fro m caregiver [facility] Provider STAR YANES Start: 06-28-2021 Telephone encounter Go Rdz RN Work Phone: [facility] Comment on above: Home Care (home heal th agency discharge status) Start: 06-26-2021 Orders Only Yessenia Olivo Work Phone: [facility] Start: 06-25-2021 End: 06-25-2021 Home visit Amalia Diaz RN Work Phone: [facility] Comment on above: SN AGENCY DC W VISIT IV Start: 06-24-2021 ambulatory Amairani robbins MD Work Phone: Infectious Disease Comment on above: CoPat Stop (06/24/21) Start: 06-24-2021 Home visit Ryann Cunha RN Work Phone: [facility] Comment on above: CARE COORDINATION Start: 06-24-2021 Telephone encounter Amairani Quintero MD Work Phone: Infectious Disease Comment on above: Patient Update Start: 06-21-2021 End: 06-21-2021 Home visit Payton Haas RN Work Phone: [facility] Comment on above: SN IV UP TO 90 MIN Start: 06-16-2021 End: 06-16-2021 Patient encounter procedure Van Salvador CERTIFIED ACTIVITIES DIRECTOR.PAINT BOOTH OPERATOR Work Phone: Endovascular Center Comment on above: Wound dehiscence (Pr imary Dx); Cerebral aneurysm, nonruptured; S/P craniotomy Start: 06-14-2021 End: 06-14-2021 Home visit Amalia Diaz RN Work Phone: [facility] Comment on above: SN IV UP TO 90 MIN Start: 06-07-2021 End: 06-07-2021 Home visit Mima Zuniga RN Work Phone: [facility] Comment on above: SN IV UP TO 90 MIN Start: 06-05-2021 ambulatory Yessenia Olivo Work Phone: [facility] Comment on above: Glucose meter Start: 06-01-2021 ambulatory Yessenia Olivo Work Phone: [facility] Comment on above: Glucose reader Start: 05-31-2021 End: 05-31-2021 Home visit Payton Haas RN Work Phone: [facility] Comment on above: SN IV UP TO 90 MIN Start: 05-17-2021 Telephone encounter Miguelina gustafson CHRISTIAN Work Phone: [facility] Comment on above: Home Care (Follow fo r home care servies) Procedures Date Procedure Procedure Detail Performing Clinician Start: 07-11-2023 Adult depression scr eening assessment Yessenia Rodriguez MD Work Phone: Start: 10-25-2022 Hemoglobin A1c/Hemoglobin.total in Blood Yessenia Rodriguez MD Work Phone: Start: 10-25-2022 Myocardial spect mul tiple studies Patrica Lennon DO Work Phone: Start: 09-06-2022 Nitric oxide gas determination Rose Tyler CERTIFIED ACTIVITIES DIRECTOR.PAINT BOOTH OPERATOR Work Phone: Start: 08-17-2022 Radiologic exam ches t 2 views Rose Tyler CERTIFIED ACTIVITIES DIRECTOR.PAINT BOOTH OPERATOR Work Phone: Start: 05-03-2022 Mri brain brain stem w/o w/contrast material Nerissa Roy PA-C Work Phone: Start: 02-16-2022 Colonoscopy flx dx w /collj spec when pfrmd Yessenia Rodriguez MD Work Phone: Start: 02-16-2022 End: 02-16-2022 Gluc bld gluc mntr dev cleared fda spec home use Deepa Lees MD Work Phone: Start: 02-16-2022 Colonoscopy Dominick egan MD Work Phone: Start: 06-09-2021 Adult depression scr eening assessment Amalia Diaz RN Work Phone: Start: 12-25-2020 Adult depression scr eening assessment Payton Haas RN Work Phone: Start: 12-25-2019 Mammography Payton lou RN Work Phone: Plan of Treatment Date Care Activity Detail Author Start: 2037 RSV Vaccine (1 - 1-d ose 75+ series) RSV Vaccine (1 - 1-dose 75+ series) [facility] Start: 02-17-2032 Colonoscopy COLONOSCOPY [facility] Start: 02-17-2032 COLORECTAL CANCER SCREENING COLORECTAL CANCER SCREENING [facility] Start: 02-17-2032 Screening for malign ant neoplasm of colon [facility] Start: 05-24-2030 Urine microalbumin profile [facility] Start: 08-02-2027 HPV TESTING HPV TESTING [facility] Start: 08-02-2027 PAP TESTING PAP TESTING [facility] Start: 08-02-2027 Screening for malign ant neoplasm of cervix [facility] Start: 02-06-2025 Screening for malign ant neoplasm of breast Mammogram Screening [facility] Start: 01-04-2025 Annual PCP Team Charge Master Specialist patrick Disease Visit Annual PCP Team Chronic Disease Visit [facility] Start: 01-04-2025 BP Controlled (<130/80) BP Controlle d (<130/80) [facility] Start: 01-04-2025 Covid-19 Vaccine ( season) Covid-19 Vaccine () [facility] Comment on above: Postponed from 11/11 (Declined at this time) Start: 12-03-2024 Annual PCP Team Charge Master Specialist patrick Disease Visit Annual PCP Team Chronic Disease Visit [facility] Start: 12-03-2024 BP Controlled (<130/80) BP Controlle d (<130/80) [facility] Start: 07-24-2024 End: 07-24-2024 Patient encounter procedure 07/24/2024 8:20 AM EDT Office Visit [facility] [address] [place] [address] Adilene Lino MD [address] [place] [address] follow up per staff message from carmenza harvey 05/30/24 [facility] Comment on above: follow up per staff message from carmenza harvey 05/30/24 Start: 07-10-2024 Annual PCP Team Charge Master Specialist patrick Disease Visit Annual PCP Team Chronic Disease Visit [facility] Start: 07-10-2024 BP Controlled (<130/80) BP Controlle d (<130/80) [facility] Start: 07-10-2024 Depression Screening Depression Scre ening [facility] Start: 07-09-2024 Hepatitis B screening Urine Al bumin:Creatinine Ratio [facility] Start: 07-09-2024 Hepatitis B surface antibody level LDL Cholesterol [facility] Start: 07-03-2024 End: 10-02-2024 CBC panel - Blood by Automated count COMPLETE BLOOD COUNT Lab Routine Controlled type 2 diabetes mellitus without complication, without long-term current use of insulin (HCC) Expected: 07/03/2024, Expires: 10/02/2024 [facility] Comment on above: Expected: 07/03/2024 , Expires: 10/02/2024 Start: 07-03-2024 End: 10-02-2024 Comprehensive metabolic 2000 panel - Serum or Plasma COMPREHENSIVE METABOLIC PANEL Lab Routine Controlled type 2 diabetes mellitus without complication, without long-term current use of insulin (HCC) Expected: 07/03/2024, Expires: 10/02/2024 [facility] Comment on above: Expected: 07/03/2024 , Expires: 10/02/2024 Start: 07-03-2024 End: 10-02-2024 Hemoglobin A1c in Blood HEMOGLOBIN A1C Lab Routine Controlled type 2 diabetes mellitus without complication, without long-term current use of insulin (HCC) Expected: 07/03/2024, Expires: 10/02/2024 [facility] Work Phone: Comment on above: Expected: 07/03/2024 , Expires: 10/02/2024 Start: 07-03-2024 End: 10-02-2024 Lipid 1996 panel - Serum or Plasma LIPID PANEL BASIC Lab Routine Controlled type 2 diabetes mellitus without complication, without long-term current use of insulin (HCC) Expected: 07/03/2024, Expires: 10/02/2024 [facility] Comment on above: Expected: 07/03/2024 , Expires: 10/02/2024 Start: 06-12-2024 End: 06-12-2024 Patient encounter procedure 06/12/2024 1:00 PM EDT Office Visit [facility] [address] [place] [address] Adilene Lnio MD [address] [place] [address] follow up / ok to use new slot per haiku from [facility] 05/31/24 [facility] Comment on above: follow up / ok to us e new slot per haiku from [facility] 05/31/24 Start: 05-27-2024 [facility] Start: 05-27-2024 [facility] Start: 05-27-2024 Bacteria identified in Urine by Culture Urine Culture [facility] Start: 05-27-2024 [facility] Start: 05-16-2024 End: 05-16-2024 Patient encounter procedure 05/16/2024 10:30 AM EST Office Visit NEUROLOGY [address] [facility] [place] [address] Maryam Salmeron APRN.PAINT BOOTH OPERATOR [address] [place] [address] follow up should have been seen in September of 2022 NEUROLOGY Comment on above: follow up should hav e been seen in September of 2022 Start: 05-04-2024 Patient referral [facility] Work Phone: Start: 01-11-2024 End: 01-11-2024 Patient encounter procedure 01/11/2024 3:00 PM EDT Office Visit [facility] [address] [address] Yessenia Rodriguez MD [address] [place] [address] 6m follow up [facility] Comment on above: 6m follow up Start: 01-09-2024 Hemoglobin A1c measurement HbA1C [facility] Start: 12-04-2023 End: 12-04-2023 Patient encounter procedure 12/04/2023 9:00 AM EDT Office Visit [address] [address] Luz Marina Mcmahan PA-C [address] [place] [id number] Rash x1 month [facility] Comment on above: Rash x1 month Start: 11-16-2023 BP CONTROLLED (<130/80) BP CONTROLLE D (<130/80) [facility] Start: 11-12-2023 Covid-19 Vaccine ( season) Covid-19 Vaccine ( season) [facility] Start: 11-12-2023 Covid-19 Vaccine () Covid-19 Vaccine () [facility] Start: 11-12-2023 Influenza vaccination C [facility] Start: 10-26-2023 3 comp foot exam completed DIABETIC FOOT EXAM [facility] Start: 10-26-2023 ANNUAL PCP TEAM CUSTOMER SERVICES SUPERVISOR PATRICK DISEASE VISIT ANNUAL PCP TEAM CHRONIC DISEASE VISIT [facility] Start: 10-26-2023 BP CONTROLLED (<130/80) BP CONTROLLE D (<130/80) [facility] Start: 10-26-2023 Diabetic foot examination Diabetic Foot Exam [facility] Start: 08-18-2023 ANNUAL PCP TEAM CUSTOMER SERVICES SUPERVISOR PATRICK DISEASE VISIT ANNUAL PCP TEAM CHRONIC DISEASE VISIT [facility] Start: 08-02-2023 ANNUAL PCP TEAM CUSTOMER SERVICES SUPERVISOR PATRICK DISEASE VISIT ANNUAL PCP TEAM CHRONIC DISEASE VISIT [facility] Start: 07-28-2023 BP CONTROLLED (<130/80) BP CONTROLLE D (<130/80) [facility] Start: 07-19-2023 BP CONTROLLED (<130/80) BP CONTROLLE D (<130/80) [facility] Start: 07-11-2023 End: 07-11-2023 Patient encounter procedure 07/11/2023 3:00 PM EDT Office Visit [address] [facility] [place] [address] Fatigue, back pain [facility] [place] Comment on above: Fatigue, back pain Start: 06-30-2023 BP CONTROLLED (<130/80) BP CONTROLLE D (<130/80) [facility] Start: 06-16-2023 BP CONTROLLED (<130/80) BP CONTROLLE D (<130/80) [facility] Start: 06-14-2023 ANNUAL PCP TEAM CUSTOMER SERVICES SUPERVISOR PATRICK DISEASE VISIT ANNUAL PCP TEAM CHRONIC DISEASE VISIT [facility] Start: 06-07-2023 BP CONTROLLED (<130/80) BP CONTROLLE D (<130/80) [facility] Start: 05-23-2023 End: 08-22-2023 ALBUMIN/CREAT RATIO RND UR ALBUMIN/CREAT RATIO RND UR Lab Routine Hyperlipidemia associated with type 2 diabetes mellitus (HCC) (HCC) Expected: 05/23/2023, Expires: 08/22/2023 [facility] Work Phone: Comment on above: Expected: 05/23/2023 , Expires: 08/22/2023 Start: 05-23-2023 End: 08-22-2023 Basic metabolic 2000 panel - Serum or Plasma BASIC METABOLIC PNL Lab Routine Hyperlipidemia associated with type 2 diabetes mellitus (HCC) (HCC) Expected: 05/23/2023, Expires: 08/22/2023 [facility] Work Phone: Comment on above: Expected: 05/23/2023 , Expires: 08/22/2023 Start: 05-23-2023 End: 08-22-2023 CBC panel - Blood by Automated count CBC Lab Routine Hyperlipidemia associated with type 2 diabetes mellitus (HCC) (HCC) Expected: 05/23/2023, Expires: 08/22/2023 [facility] Work Phone: Comment on above: Expected: 05/23/2023 , Expires: 08/22/2023 Start: 05-23-2023 End: 08-22-2023 Hemoglobin A1c in Blood HGB A1C Lab Routine Hyperlipidemia associated with type 2 diabetes mellitus (HCC) (HCC) Expected: 05/23/2023, Expires: 08/22/2023 [facility] Work Phone: Comment on above: Expected: 05/23/2023 , Expires: 08/22/2023 Start: 05-23-2023 End: 08-22-2023 Lipid 1996 panel - Serum or Plasma LIPID PANEL BASIC Lab Routine Hyperlipidemia associated with type 2 diabetes mellitus (HCC) (HCC) Expected: 05/23/2023, Expires: 08/22/2023 [facility] Work Phone: Comment on above: Expected: 05/23/2023 , Expires: 08/22/2023 Start: 05-09-2023 BP CONTROLLED (<130/80) BP CONTROLLE D (<130/80) [facility] Start: 04-27-2023 Hemoglobin A1c measurement HbA1C [facility] Start: 04-27-2023 Hemoglobin A1c/Hemoglobin.total in Blood HBA1C [facility] Start: 04-23-2023 ANNUAL PCP TEAM CUSTOMER SERVICES SUPERVISOR PATRICK DISEASE VISIT ANNUAL PCP TEAM CHRONIC DISEASE VISIT [facility] Start: 04-05-2023 Hepatitis B surface antibody level LDL CHOLESTEROL [facility] Start: 03-22-2023 BP CONTROLLED (<130/80) BP CONTROLLE D (<130/80) [facility] Start: 03-13-2023 Behavioral Health Screening Behavioral Health Screening [facility] Start: 03-13-2023 Depression Assessment Depression Ass essment [facility] Start: 02-16-2023 Colonoscopy COLONOSCOPY [facility] Start: 02-16-2023 COLORECTAL CANCER SCREENING COLORECTAL CANCER SCREENING [facility] Start: 2022 RSV Vaccine (1 - 1-d ose 60+ series) RSV Vaccine (1 - 1-dose 60+ series) [facility] Start: 12-08-2022 BP CONTROLLED (<130/80) BP CONTROLLE D (<130/80) [facility] Start: 11-11-2022 Covid-19 Vaccine () Covid-19 Vaccine () [facility] Start: 11-11-2022 Influenza vaccination C [facility] Start: 10-03-2022 Hemoglobin A1c/Hemoglobin.total in Blood HBA1C [facility] Start: 06-25-2022 BP CONTROLLED (<130/80) BP CONTROLLE D (<130/80) [facility] Start: 06-18-2022 SHINGRIX VACCINE (2 of 2) SHINGRIX VACCINE (2 of 2) [facility] Start: 06-16-2022 BP CONTROLLED (<130/80) BP CONTROLLE D (<130/80) [facility] Start: 06-14-2022 BP CONTROLLED (<130/80) BP CONTROLLE D (<130/80) [facility] Start: 06-09-2022 Adult depression screening assessment DEPRESSION SCREENING [facility] Start: 04-05-2022 End: 06-05-2022 SCHEDULE LAB TESTING SCHEDULE LAB TESTING Lab Routine Expected: 04/05/2022, Expires: 06/05/2022 [facility] Work Phone: Comment on above: Expected: 04/05/2022 , Expires: 06/05/2022 Start: 03-23-2022 End: 05-23-2022 C reactive protein [Mass/volume] in Serum or Plasma by High sensitivity method C-REACTIVE ULTRA SEN Lab Routine Wound drainage Hx of craniotomy Expected: 03/23/2022 (Approximate), Expires: 05/23/2022 [facility] Work Phone: Comment on above: Expected: 03/23/2022 (Approximate), Expires: 05/23/2022 Start: 03-23-2022 End: 05-23-2022 CBC W Auto Differential panel - Blood CBC + DIFF Lab Routine Wound drainage Hx of craniotomy Expected: 03/23/2022 (Approximate), Expires: 05/23/2022 [facility] Work Phone: Comment on above: Expected: 03/23/2022 (Approximate), Expires: 05/23/2022 Start: 03-23-2022 End: 05-23-2022 Erythrocyte sedimentation rate SED RATE WESTERGREN Lab Routine Wound drainage Hx of craniotomy Expected: 03/23/2022 (Approximate), Expires: 05/23/2022 [facility] Work Phone: Comment on above: Expected: 03/23/2022 (Approximate), Expires: 05/23/2022 Start: 03-23-2022 End: 05-23-2022 Prealbumin [Mass/volume] in Serum or Plasma PREALBUMIN BLD Lab Routine Wound drainage Hx of craniotomy Expected: 03/23/2022 (Approximate), Expires: 05/23/2022 [facility] Work Phone: Comment on above: Expected: 03/23/2022 (Approximate), Expires: 05/23/2022 Start: 03-13-2022 DEPRESSION ASSESSMENT DEPRESSION ASS ESSMENT [facility] Start: 01-25-2022 End: 03-27-2022 Hemoglobin A1c in Blood HGB A1C Lab Routine Hyperlipidemia associated with type 2 diabetes mellitus (HCC) Expected: 01/25/2022, Expires: 03/27/2022 [facility] Work Phone: Comment on above: Expected: 01/25/2022 , Expires: 03/27/2022 Start: 01-25-2022 End: 03-27-2022 Lipid 1996 panel - Serum or Plasma LIPID PANEL BASIC Lab Routine Hyperlipidemia associated with type 2 diabetes mellitus (HCC) Expected: 01/25/2022, Expires: 03/27/2022 [facility] Work Phone: Comment on above: Expected: 01/25/2022 , Expires: 03/27/2022 Start: 01-25-2022 End: 03-27-2022 SCHEDULE LAB TESTING SCHEDULE LAB TESTING Lab Routine Expected: 01/25/2022, Expires: 03/27/2022 [facility] Work Phone: Comment on above: Expected: 01/25/2022 , Expires: 03/27/2022 Start: 12-30-2021 ANNUAL PCP TEAM CUSTOMER SERVICES SUPERVISOR PATRICK DISEASE VISIT ANNUAL PCP TEAM CHRONIC DISEASE VISIT [facility] Start: 12-25-2021 Adult depression screening assessment DEPRESSION SCREENING [facility] Start: 11-23-2021 End: 01-23-2022 Hemoglobin A1c in Blood HGB A1C Lab Routine Hyperlipidemia associated with type 2 diabetes mellitus (HCC) Expected: 11/23/2021, Expires: 01/23/2022 [facility] Work Phone: Comment on above: Expected: 11/23/2021 , Expires: 01/23/2022 Start: 11-23-2021 End: 01-23-2022 Lipid 1996 panel - Serum or Plasma LIPID PANEL BASIC Lab Routine Hyperlipidemia associated with type 2 diabetes mellitus (HCC) Expected: 11/23/2021, Expires: 01/23/2022 [facility] Work Phone: Comment on above: Expected: 11/23/2021 , Expires: 01/23/2022 Start: 11-23-2021 End: 01-23-2022 SCHEDULE LAB TESTING SCHEDULE LAB TESTING Lab Routine Expected: 11/23/2021, Expires: 01/23/2022 [facility] Work Phone: Comment on above: Expected: 11/23/2021 , Expires: 01/23/2022 Start: 11-11-2021 [facility] Start: 10-22-2021 Hepatitis B surface antibody level LDL CHOLESTEROL [facility] Start: 05-02-2021 COVID-19 VACCINE (4 - Booster for Pfizer series) COVID-19 VACCINE (4 - Booster for Pfizer series) [facility] Start: 04-24-2021 Hemoglobin A1c/Hemoglobin.total in Blood HBA1C [facility] Start: 03-13-2021 DEPRESSION ASSESSMENT DEPRESSION ASS ESSMENT [facility] Start: 02-24-2021 COVID-19 VACCINE (4 - Booster for Pfizer series) COVID-19 VACCINE (4 - Booster for Pfizer series) [facility] Start: 01-06-2021 3 comp foot exam completed DIABETIC FOOT EXAM [facility] Start: 12-24-2020 Mammography [facility] Start: 12-24-2020 Screening for malign ant neoplasm of breast Mammogram Screening [facility] Start: 12-02-2020 Glaucoma screening Dilated Retinal E xam [facility] Start: 12-02-2020 Hepatitis C antibody , confirmatory test DILATED RETINAL EXAM [facility] Start: 11-27-2020 PNEUMOCOCCAL (2 - PCV) PNEUMOCOCCAL (2 - PCV) [facility] Start: 11-11-2020 Influenza vaccination INFLUENZA (#1) [facility] Start: 2012 SHINGRIX VACCINE (1 of 2) SHINGRIX VACCINE (1 of 2) [facility] Start: 12-14-2007 COLOGUARD (FIT-DNA) COLOGUARD (FIT-D NA) [facility] Start: 12-14-2007 Colonoscopy COLONOSCOPY [facility] Start: 12-14-2007 COLORECTAL CANCER SCREENING COLORECTAL CANCER SCREENING [facility] Start: 12-14-[address] COLONOGRAPHY [facility] Start: 12-14-2007 FECAL OCCULT BLOOD FECAL OCCULT BLOO D [facility] Start: 12-14-2007 Screening for malign ant neoplasm of colon [facility] Start: 12-14-2007 SIGMOIDOSCOPY SIGMOIDOSCOPY [facility] Start: 1992 HPV TESTING HPV TESTING [facility] Start: 12-14-1983 PAP TESTING PAP TESTING [facility] Start: 1981 HEPATITIS B (1 of 3 - Risk 3-dose series) HEPATITIS B (1 of 3 - Risk 3-dose series) [facility] Start: 1980 BP CONTROLLED (<130/80) BP CONTROLLE D (<130/80) [facility] Start: 1980 HEPATITIS C SCREENING HEPATITIS C [facility] Start: 1980 Hepatitis C screening Hepatitis C [facility] Start: 1980 HIV SCREENING HIV SCREENING [facility] Start: 1980 HIV screening HIV Screening [facility] Start: 1972 Hepatitis B screening URINE AL BUMIN:CREATININE RATIO [facility] Start: 1962 HEPATITIS B (1 of 3 - 3-dose series) HEPATITIS B (1 of 3 - 3-dose series) [facility] Bacteria identified in Wound by Culture ABSCESS AND WOUND CULTURE WITH GRAM STAIN Microbiology Routine Skin ulcer of scalp, limited to breakdown of skin (HCC) 06/15/2022 8:56 AM EDT [facility] Work Phone: End: 01-07-[address] CT BRAIN WO IVCON CT BRAIN WO IVCON Radiology Routine 1 Occurrences starting 12/08/2021 until 01/07/2023 [facility] Work Phone: Comment on above: 1 Occurrences starti ng 12/08/2021 until 01/07/2023 End: 12-27-2021 CT BRAIN WO [facility]CON [facility] [facility] Work Phone: Comment on above: 1 Occurrences starti ng 12/27/2021 until 12/27/2021 End: 08-11-2023 EXERCISE STRESS ECG (WITHOUT IMAGING) EXERCISE STRESS ECG (WITHOUT IMAGING) Cardiology Routine GONCALVES (dyspnea on exertion) 1 Occurrences starting 08/10/2022 until 08/11/2023 [facility] Work Phone: Comment on above: 1 Occurrences starti ng 08/10/2022 until 08/11/2023 End: 09-16-2023 LUNG VOLUMES LUNG VOLUMES PFT Routine GONCALVES (dyspnea on exertion) 1 Occurrences starting 08/17/2022 until 09/16/2023 [facility] Work Phone: Comment on above: 1 Occurrences starti ng 08/17/2022 until 09/16/2023 End: 04-27-2024 CHARLIE SCREENING CHARLIE SCREENING Radiology Routine Encounter for screening mammogram for breast cancer 1 Occurrences starting 03/29/2023 until 04/27/2024 [facility] Work Phone: Comment on above: 1 Occurrences starti ng 03/29/2023 until 04/27/2024 MG Breast Screening CHARLIE SCREENIN G Radiology Routine Encounter for screening mammogram for breast cancer 02/07/2024 11:03 AM EST [facility] Work Phone: End: 05-02-2023 Mri brain brain stem w/o w/contrast material MRI BRAIN WO/W IVCON Radiology JASWANT Intracranial aneurysm Postoperative infection, unspecified type, subsequent encounter Acquired skull defect Postoperative wound dehiscence, initial encounter Nonruptured cerebral aneurysm 1 Occurrences starting 04/04/2022 until 05/02/2023 [facility] Work Phone: Comment on above: 1 Occurrences starti ng 04/04/2022 until 05/02/2023 End: 09-16-2023 NITRIC OXIDE, EXHALED NITRIC OXIDE, EXHALED PFT Routine GONCALVES (dyspnea on exertion) 1 Occurrences starting 08/17/2022 until 09/16/2023 [facility] Work Phone: Comment on above: 1 Occurrences starti ng 08/17/2022 until 09/16/2023 End: 11-18-2023 NM CARDIAC PERF STRESS/PHARM NM CARDIAC PERF STRESS/PHARM Radiology Routine GONCALVES (dyspnea on exertion) Hypertension, essential Mixed hyperlipidemia Precordial pain FABIOLA (obstructive sleep apnea) Subaortic membrane 1 Occurrences starting 10/19/2022 until 11/18/2023 [facility] Work Phone: Comment on above: 1 Occurrences starti ng 10/19/2022 until 11/18/2023 NM CARDIAC PERF STRESS/PHARM NM CARDIAC PERF STRESS/PHARM Radiology Routine GONCALVES (dyspnea on exertion) Hypertension, essential Mixed hyperlipidemia Precordial pain FABIOLA (obstructive sleep apnea) Subaortic membrane 10/25/2022 2:38 PM EDT [facility] Work Phone: Patient Education Urinary Tract Infections in Women Dehydration ED Vomit Diarrhea Nonspec Adult [facility] Work Phone: Patient referral [facility] Work Phone: End: 09-16-2023 Radiologic exam chest 2 views XR CHEST 2V FRONTAL/LAT Radiology Routine GONCALVES (dyspnea on exertion) 1 Occurrences starting 08/17/2022 until 09/16/2023 [facility] Work Phone: Comment on above: 1 Occurrences starti ng 08/17/2022 until 09/16/2023 Radiologic exam ches t 2 views XR CHEST 2V FRONTAL/LAT Radiology Routine GONCALVES (dyspnea on exertion) 08/17/2022 9:19 AM EDT [facility] Work Phone: End: 10-22-2022 Screening mammography bi 2-view breast inc cad CHARLIE SCREENING Radiology Routine Encounter for screening mammogram for breast cancer 1 Occurrences starting 09/22/2021 until 10/22/2022 [facility] Work Phone: Comment on above: 1 Occurrences starti ng 09/22/2021 until 10/22/2022 End: 09-16-2023 SPIROMETRY WITH DILATOR IF OBSTRUCTED SPIROMETRY WITH DILATOR IF OBSTRUCTED PFT Routine GONCALVES (dyspnea on exertion) 1 Occurrences starting 08/17/2022 until 09/16/2023 [facility] Work Phone: Comment on above: 1 Occurrences starti ng 08/17/2022 until 09/16/2023 Urine culture [facility] Urine culture [facility] Immunizations Immunization Date Immunization Notes Care Provider [facility] 01-05-2024 influenza, seasonal, injectable Trang Bernie CHAPIN [facility] 08-01-2022 pneumococcal (PCV20) vaccine, 20 valent (PREVNAR 20) Luz Marina Carcamo PA-C Work Phone: [facility] 08-01-2022 zoster vaccine recombinant Luz Marina Carcamo PA-C Work Phone: [facility] 04-23-2022 zoster vaccine recombinant Maryam Salmeron APRN.PAINT BOOTH OPERATOR Work Phone: [facility] 03-24-2022 influenza, injectabl e, quadrivalent, preservative free Joceline Lofton PROCESS DESIGN ENGINEER Work Phone: [facility] 03-24-2022 influenza virus vacc ine, unspecified formulation Yessenia Rodriguez MD Work Phone: [facility] 12-30-2020 COVID-19 vaccine, ag e 12+ yr ([employer] [facility]) Payton Haas RN Work Phone: [facility] 06-29-2020 COVID-19 vaccine, ag e 12+ yr (P[employer]ER-[employer]IONTE[employer] - PURPLE TOP) Payton Haas RN Work Phone: [facility] Work Phone: 06-08-2020 COVID-19 vaccine, ag e 12+ yr (P[employer] - PURPLE TOP) Payton Haas RN Work Phone: [facility] 05-24-2020 tetanus toxoid, redu paul diphtheria toxoid, and acellular pertussis vaccine, adsorbed Payton Haas RN Work Phone: [facility] 11-28-2019 influenza, injectabl e, quadrivalent, contains preservative Payton Haas RN Work Phone: [facility] 11-28-2019 pneumococcal polysaccharide vaccine, 23 valent Payton Haas RN Work Phone: [facility] 07-27-2009 tetanus toxoid, redu paul diphtheria toxoid, and acellular pertussis vaccine, adsorbed Payton Haas RN Work Phone: [facility] Payers Date Payer Category Payer Self-pay 2024 Medicare [id number] 2023 Medicare HUMANA MEDICARE HUMANA GOLD PLUS [id number] 2023-Present [phone] [address] [address] [place] [address] HMO [id number] 2023 Medicare (Managed Care) [id number] 2023 Private Health Insurance [id number] 2022 Medicaid [id number] 2019 Medicaid [employer] MEDICA[employer] [id number] 2019-Present [phone] [address] [place] [address] Medicaid [id number] 2019 Medicaid [id number] 2019 Medicaid [id number] 1960 Unknown [id number] 1960 Unknown [id number] 1960 Unknown [id number] 1960 Unknown [id number] Unknown [id number] Unknown [id number] Social History Date Type Detail Facility Start: 07-14-2020 End: 12-04-2023 Tobacco smoking status NHIS Ex-smoker [facility] Start: 07-14-1978 End: 05-21-2000 History of tobacco use Current smoker [facility] Start: 07-14-1978 End: 05-21-2000 History of tobacco use Cigarette Smoker [facility] Start: 05-15-2021 End: 05-16-2024 Alcohol intake Ex-drinker (finding) [facility] Start: 12-03-2019 End: 04-17-2022 History SDOH Alcohol Frequency 2 [facility] Start: 12-03-2019 End: 04-17-2022 History SDOH Alcohol Std Drinks 1 [facility] Start: 11-28-2019 End: 04-17-2022 History SDOH Social Connections Phone 5 [facility] Start: 11-28-2019 History SDOH Physical Activity DPW 0 [facility] Start: 01-01-2020 End: 04-17-2022 History SDOH Stress 3 [facility] Start: 11-27-2019 Education 12 [facility] Start: 1960 Sex Assigned At Female [facility] Start: 04-17-2021 End: 01-19-2022 Exposure to SARS-CoV-2 (event) Not sure [facility] Start: 06-06-2021 End: 06-16-2021 Exposure to SARS-CoV-2 (event) Unable to assess [facility] Start: 07-14-2020 End: 07-10-2023 Cigarettes smoked current (pack per day) - Reported 0.3 [facility] Start: 07-14-2020 End: 12-04-2023 Tobacco use and exposure Smokeless tobacco non-user [facility] Work Phone: Start: 04-17-2022 End: 07-10-2023 Social connection and isolation panel [facility] Do you belong to any clubs or organizations such as rastafarian groups, unions, [employer] or athletic groups, or school groups? No [facility] Are you now , , , , never or living with a partner? [facility] How often to you hav e a drink containing alcohol? Monthly or less [facility] How many standard dr inks containing alcohol do you have on a typical day? 1 or 2 [facility] How often do you hav e 6 or more drinks on 1 occasion? Never [facility] How hard is it for y ou to pay for the very basics like food, housing, medical care, and heating Very hard [facility] Adult Depression Screening Assessment 4 [facility] Do you feel stress - tense, restless, nervous, or anxious, or unable to sleep at night because your mind is troubled all the time - these days [OSQ] To some extent [facility] (I/We) worried juan carlos er (my/our) food would run out before (I/we) got money to buy more. Sometimes true [facility] Start: 11-27-2019 Gender identity Identifies as female gender (finding) [facility] Start: 11-27-2019 Sexual orientation Heterosexual (finding) [facility] Do you feel stress - tense, restless, nervous, or anxious, or unable to sleep at night because your mind is troubled all the time - these days [OSQ] Only a little [facility] Start: 05-27-2024 Tobacco smoking status NHIS Tobacco smoking consumption unknown (finding) [facility] Start: 05-27-2024 Sex Female (finding) [facility] Medical Equipment Procedure Code Equipment Code Equipment Origin al Text Equipment Identifier Dates Lazic Clip 7mm Perm Cvd Mini L-Clip [id number] Start: 07-21-2020 Plate Low Profil e Bone 2 Hole Tap Cranium - [id number] Start: 07-21-2020 Plate Low Profil e Titanium 12mm Bone 2 Hole Bar 1.5mm Screw Nonsterile - [id number] Start: 07-21-2020 Cover 14mm Low Profile Titanium Cindy Hole Tab 1.5mm Screw Nonsterile - [id number] Start: 07-21-2020 Screw Bone [place] [employer] 3 4mm 1.5mm Self Drill Axial Stability Latex - [id number] Start: 07-21-2020 [id number] Start: 06-01-2021 Comment on above: Test blood sugar(s) 2 times daily. Dx: Type 2 DM - Uncontrolled E11.65 Insulin: No DX: E11.9 Test blood sugar(s) 2 times daily. Dx: Type 2 DM - Uncontrolled E11.65 Insulin: No DX:E11.9 Functional Status Date Assessment Result Facility 07-24-2020 Are you deaf, or do you have serious difficulty hearing No 07/24/2020 7:21 PM Lloyd Yin, LORENZO No [facility] 07-24-2020 Are you blind, or do you have serious difficulty seeing, even when wearing glasses No 07/24/2020 7:21 PM Lloyd Yin, LORENZO [facility] 07-24-2020 Do you have serious difficulty walking or climbing stairs No 07/24/2020 7:21 PM Lloyd Yin, LORENZO No [facility] 07-24-2020 Do you have difficul ty dressing or bathing No 07/24/2020 7:21 PM Lloyd Yin, LORENZO [facility] 07-24-2020 Because of a physica l, mental, or emotional condition, do you have difficulty doing errands alone such as visiting a physician's office or shopping No 07/24/2020 7:21 PM EDT Lloyd Contreras, RN No [facility] Mental Status Date Assessment Result Facility 07-24-2020 Because of a physica l, mental, or emotional condition, do you have serious difficulty concentrating, remembering, or making decisions No 07/24/2020 7:21 PM EDT Lloyd Contreras, RN No [facility] Clinical Notes 01-07-2020 to 01-19-2025 Telephone Encounter - Carmenza Harvey RN - 05/31/2024 10:57 AM EDTTelephone Encounter - Carmenza Harvey RN - 05/31/2024 10:57 AM EDT Note Date & Type Note Facility 01-19-2025 Note . MICRO - Microbiology PROCEDURE: Culture Wound Aerobic with Gram Stain [*1] SOURCE: Wound (surface) BODY SITE: Scalp COLLECTED DATE/TIME: 01/15/2025 13:00 EST RECEIVED DATE/TIME: 01/16/2025 15:54 EST START DATE/TIME: 01/16/2025 15:55 EST FREE TEXT SOURCE: FINAL REPORTS Final Report [] Verified Date/Time/Personnel: 01/19/2025 10:04 EST Few Staphylococcus aureus Few Staphylococcus aureus #2 Few normal skin malcolm present Sensitivity testing not indicated. PRELIMINARY REPORTS Preliminary Report [] Verified Date/Time/Personnel: 01/18/2025 10:48 EST Few Staphylococcus aureus OLEG to follow Few Staphylococcus aureus #2 OLEG to follow Few normal skin malcolm present Sensitivity testing not indicated. Preliminary Report [] Verified Date/Time/Personnel: 01/17/2025 09:06 EST Culture results pending. STAINS GS [] Verified Date/Time/Personnel: 01/16/2025 18:27 EST No organisms seen. SUSCEPTIBILITY RESULTS Staphylococcus aureus Antibiotic OLEG Dilut OLEG Inter Ampicillin/ <=8/4 Susceptible Sulbactam Azithromycin <=2 Susceptible Cefazolin <=8 Susceptible Ceftriaxone <=4 Susceptible Ciprofloxacin <=1 Susceptible Clindamycin 0.5 Susceptible Erythromycin <=0.25 Susceptible Levofloxacin <=1 Susceptible Oxacillin <=0.25 Susceptible Penicillin <=0.03 Susceptible Tetracycline <=4 Susceptible Trimethoprim/ <=0.5/9.5 Susceptible Sulfa Vancomycin 1 Susceptible Staphylococcus aureus #2 Antibiotic OLEG Dilut OLEG Inter Ampicillin/ <=8/4 Susceptible Sulbactam Azithromycin <=2 Susceptible Cefazolin <=8 Susceptible Ceftriaxone <=4 Susceptible Ciprofloxacin <=1 Susceptible Clindamycin <=0.25 Susceptible MICRO - Microbiology SUSCEPTIBILITY RESULTS Staphylococcus aureus #2 Antibiotic OLEG Dilut OLEG Inter Erythromycin <=0.25 Susceptible Levofloxacin <=1 Susceptible Oxacillin <=0.25 Susceptible Penicillin <=0.03 Susceptible Tetracycline <=4 Susceptible Trimethoprim/ <=0.5/9.5 Susceptible Sulfa Vancomycin 1 Susceptible Performing Locations *1: This test was performed at: [facility], [address] [place] [address], [id number] , [facility] 05-31-2024 Telephone encount er Note Called patient to offer closer date to see Dr. Lino. Dates offered and patient accepted 06/12/24. Patient appreciated phone call and the assistance. LORENZO Herr [facility] 05-31-2024 Miscellaneous Notes Formattin g of this note might be different from the original. Called patient to offer closer date to see Dr. Lino. Dates offered and patient accepted 06/12/24. Patient appreciated phone call and the assistance. LORENZO Herr documented in this encounter [facility] 05-27-2024 Discharge summary [facility] 05-27-2024 Discharge summary Note Date/Time May 27, 2024 5:13pm [facility] Medical Records Department [address] [place] [address] Emergency Department Summary 05/27/24 MR#: [id number] Acct: [id number] Name: MERLE BRADLEY RICHAR Rep #:[id number] : 1960 63 From: Kallie Toro PCP: RACHEL Hwang Status:REG ER Location: ED HPI History of Present Illness Chief Complaint: Nausea/Vomiting Informant: patient Narrative Narrative: Patient is 63-year-old female with a history of hypertension, stroke of brain aneurysm presenting with nausea vomiting and diarrhea. She came down with GI symptoms 3 days ago (Monday night into Monday morning). She had vomiting and diarrhea. She also notes that time she was having frequent urination. She continued have vomiting throughout the weekend and continue to vomit this morning. Has not been able to eat much but has been able to keep down water. Denies any abdominal pain except for discomfort associate with vomiting. Deniesany dysuria. Notes her urine has been darker than normal. On Monday night whenit for started she was having sweats and cold chills and thought she had a fever. Denies any URI symptoms. Has not been around her grandchildren but there has been a GI bug going around there. I was concerned about dehydration and came in. Denies any lightheadedness. [facility] Medical History Back problem Asthma Arthritis Home Medications ?Medication ?Instructions ?Recorded ?Last Taken ?Type amlodipine 10 mg tablet 10 mg PO QDAY 05/03/24 Unkno wn History estradiol 0.01% (0.1 mg/gram) vaginal 05/03/24 Unknown History vaginal cream fluvoxamine 25 mg tablet 25 mg PO QHS 05/03/24 Unknow n History lisinopril 40 mg tablet 40 mg PO QHS 05/03/24 Unknow n History nystatin 100,000 unit/gram topical topical BID 5 Unknown History cream metoclopramide HCl 10 mg tablet 10 mg PO Q6H PRN nause a and 05/27/24 Unknown Rx (Reglan) vomiting #10 tabs nitrofurantoin 100 mg PO Q12 #10 CAPSULES 0 05/27/24 Unknown Rx monohydrate/macrocrystals 100 mg capsule Allergy/AdvReac Type Severity Reaction Status Date / Time latex Allergy Mild Itching Verified 05/27/24 11:52 Social History Smoking Status: Unknown if ever smoked ROS ROS ED Constitutional Constitutional ED: Reports chills, fever(s) and sweats Cardiovascular Cardiovascular: Denies chest pain Respiratory/Chest Respiratory/Chest: Denies cough or dyspnea Gastrointestinal Gastrointestinal: Reports abdominal pain, diarrhea, nausea and vomiting; Denies melena Genitourinary Genitourinary ED: Reports dysuria and other Details: Dark urine, decreased urination ; Denies urinary frequency Musculoskeletal Musculoskeletal: Denies arthralgias or myalgias Integumentary Denies rash Neurologic Neurologic: Reports weakness Hematologic/Lymphatic Hematologic/Lymphatic: Denies easy bleeding or easy bruising EXAM Physical Exam Const Vital Signs: 05/27/24 11:49 05/27/24 13:44 05/27/24 14:57 Temperature 97.8 F Temperature Source Temporal Pulse Rate 80 75 78 Respiratory Rate 16 19 H 18 Blood Pressure 130/83 H 137/82 H 132/63 H Blood Pressure Mean 98 100 86 Pulse Ox 95 99 98 Oxygen Delivery Method Room Air Room Air Room Air 05/27/24 16:59 Temperature Temperature Source Pulse Rate 77 Respiratory Rate 18 Blood Pressure 135/78 H Blood Pressure Mean 97 Pulse Ox 98 Oxygen Delivery Method Room Air Positive well nourished and well developed General Appearance ED: well developed and NAD HEENT Reports moist mucous membranes Eyes PERRL Neck supple Chest Wall inspection of chest normal and palpation of chest normal Resp normal respiratory effort and clear to auscultation bilaterally Cardio regular rate, regular rhythm and no murmurs GI normal to inspection, nondistended, normoactive bowel sounds, non-tender and non-distended Auscultation: normoactive bowel sounds Extremity normal to inspection General Extremety ED: Negative for edema General Extremity: Negative for edema Neuro oriented x3 Sensorium / Orientation: alert Motor Exam: Negative for general weakness Psych mental status grossly normal Skin no rashes or lesions noted and no wounds General Skin Exam: Negative for jaundice MDM MDM MDM Narrative Medical decision making narrative: Patient evaluated for 3 days of vomiting. Initially also had subjective fevers,chills and diarrhea. Has Zofran at home with no relief. Differential includes viral syndrome, gastroenteritis, dehydration, electrolyte abnormality, JANIE and urinary tract infection. Patient currently does not have any abdominal pain is benign physical exam I do not think she requires emergent GI imaging. Patient has some improvement with IV Zofran and IV fluids. Lab work shows mild hemoconcentration with hemoglobin 17.5. Normal white blood cell count. Normal platelets. CMP is consistent with some dehydration with a bicarb of 16.7 and mildly elevated anion gap. Is given a second liter of IV fluids. Urinalysis does show 50 ketones, 10-25 white blood cells with some contaminationas well as 4+ bacteria. On further discussion patient does report she has had some mild dysuria. Will send for culture and treat with antibiotics (Macrobid). Patient given IV Reglan. Given p.o. challenge the emergency room she does well with. Will be discharged home with a prescription for Reglan as well as PPI therapy given her acute GI illness. Counseled on pushing fluids. Given return precautions. Discharged home in stable condition. Lab Data Attestation: I reviewed the patient's lab results. Labs: Laboratory Results - last 24 hr 05/27/24 05/27/24 12:57 13:07 WBC 9.6 RBC 5.45 H Hgb 17.5 H Hct 48.1 H MCV 88.3 MCH 32.1 H MCHC 36.4 H RDW Std Deviation 44.4 H RDW Coeff of Herminio 13.9 Plt Count 274 MPV 11.0 Immature Gran % (Auto) 0.400 Neut % (Auto) 71.0 H Lymph % (Auto) 24.2 Wells % (Auto) 4.1 Eos % (Auto) 0.1 Baso % (Auto) 0.2 Absolute Neuts (auto) 6.8 Absolute Lymphs (auto) 2.31 Nucleated RBC % 0 Sodium 136 Potassium 3.6 Chloride 101 Carbon Dioxide 16.7 L Anion Gap 18 H BUN 24 H Creatinine 0.81 Estim Creat Clear Calc 73.51 Est GFR (MDRD) Non-Af 82 BUN/Creatinine Ratio 29.2 H Glucose 127 H Calcium 10.7 Total Bilirubin 1.41 H AST 25 ALT 35 Alkaline Phosphatase 75 Total Protein 8.4 Albumin 5.1 H Globulin 3.4 Albumin/Globulin Ratio 1.5 Lipase 35 Urine Color Yellow Urine Clarity Cloudy Urine pH 6.0 Ur Specific [place] 1.020 Urine Protein 30 H Urine Glucose (UA) Normal Urine Ketones 50 H Urine Occult Blood 50 H Urine Nitrite Negative Urine Bilirubin 1 H Urine Urobilinogen 1 H Ur Leukocyte Esterase 100 H Urine RBC 5-10 SEEN Urine WBC 10-25 SEEN Ur Squamous Epith Cells 10-25 SEEN Uric Acid Crystals 2+ Amorphous Sediment 1+ URATE Urine Bacteria 4+ Urine Mucus 1+ Discharge Plan Triage Chief Complaint: Nausea/Vomiting ED Provider: Kallie Ghosh Dx/Rx/DC Orders Clinical Impression: Acute dehydration, Nausea & vomiting, UTI (urinary tract infection) Instructions: Urinary Tract Infections in Women, Dehydration, ED Vomit DiarrheaNonspec Adult Prescriptions: New metoclopramide HCl [Reglan] 10 mg tablet 10 mg PO Q6H PRN (Reason: nausea and vomiting) Qty: 10 0RF nitrofurantoin monohyd/m-cryst 100 mg capsule 100 mg PO Q12 Qty: 10 0RF No Action estradiol 0.01 % (0.1 mg/gram) cream vaginal fluvoxamine 25 mg tablet 25 mg PO QHS nystatin 100,000 unit/gram cream topical BID lisinopril 40 mg tablet 40 mg PO QHS amlodipine 10 mg tablet 10 mg PO QDAY Primary Care Provider: Yohan Roblero NP Referrals: Yohan Roblero AMBULANCE OPERATIONS SUPERVISOR, AMBULANCE OPERATIONS SUPERVISOR-C [Primary Care Provider] - Activity Restrictions/Additional Instructions: Continue to push fluids and small frequent sips. I would recommend taking an crgd-wvb-rvwtclr antacid such as Pepcid or Nexium once to twice a day until yourstomach is settled and is feeling better. Your blood work showed signs of dehydration and you are given 2 L of IV fluid in the emergency room. Your kidney function was normal and no significant electrolyte abnormalities. Your urinalysis was concerning for urinary tract infection. We did send off for culture and started on antibiotics. If your culture requires that we change antibiotics we will contact you in about 48 hours. Print Language: Thai Disposition Disposition: Home, Self Care What to do if you have Problems For any increased pain, shortness of breath, bleeding, nausea or vomiting, chestpain, or any unexpected problems, contact your Primary Care Provider. Call [facility] ([phone]) or report to the closest Emergency Room. Call 911 if necessary. 05/27/24 1713 <Electronically signed by Kallie Ghosh DO> Cosigner Signature (if applicable): CC: RACHEL Roblero ~ Signed [facility] Work Phone: [phone] 522-981703-17-2025 NoteHNO ID: [id number] Author: FERNANDA OBREGON APRN.PAINT BOOTH OPERATOR Service: ? Author Type: Nurse Practitioner Type: Progress Notes Filed: 05/27/2024 11:56 Note Text: [facility] NOTE Subjective Merle Bradley is a 63 year old year old who presents to express care today with complaint of nausea, vomiting, diarrhea, fever/chills, abdominal pain. States she has been having frequent non-bloody diarrhea multiple times daily and has been vomiting multiple times daily- unable to keep ndy food or fluids down x 3 days. States she has taken maalox, Zofran ODT and this have not relieved her symptoms. She now states she is urinating more frequently- history of Diabetes. Denies recent travel, denies sick contacts. Denies headaches, fever, sore throat, cough, shortness of breath, chest pains or skin rashes. Aside from symptoms as described above, patient has no other complaints at this time. HPI: see above Review of Systems Constitutional: Positive for chills, fatigue and fever. HENT: Negative for congestion, ear pain, postnasal drip, sinus pressure and sore throat. Eyes: Negative for pain, discharge and itching. Respiratory: Negative for cough, shortness of breath and wheezing. Cardiovascular: Negative for chest pain, palpitations and leg swelling. Gastrointestinal: Positive for abdominal distention, abdominal pain (all over- non specific), diarrhea, nausea and vomiting. Negative for blood in stool. Genitourinary: Positive for frequency. Negative for dysuria and urgency. Musculoskeletal: Negative for myalgias. Skin: Negative for rash. Neurological: Negative for headaches. Hematological: Negative for adenopathy. ALLERGIES Allergen Reactions Pollen Extracts Other: See Comments Sneezing, itchy eyes Current Outpatient Medications on File Prior to Visit Medication Sig estradiol (ESTRACE) 0.01 % (0.1 mg/gram) vaginal cream APPLY 2 GRAMS DAILY FOR 14 DAYS THEN 1-3 TIMES PER WEEK fluvoxaMINE Maleate (LUVOX) 25 mg tablet Take 25 mg by mouth daily at bedtime. LORazepam (ATIVAN) 0.5 mg TAKE 1 (ONE) TABLET EVERY TWELVE HOURS NEEDED FOR SEVERE ANXIETY/PANIC ATTACK nystatin (MYCOSTATIN) cream Apply to affected area two times a day. fluticasone-salmeterol HFA (ADVAIR HFA) 115-21 mcg/actuation inhaler Inhale 2 Puffs as instructed two times a day. pantoprazole DR (PROTONIX) 40 mg tablet Take 1 tablet by mouth once daily. 30 minutes before eating. albuterol HFA (PROVENTIL HFA, VENTOLIN HFA) 90 mcg/actuation inhaler Inhale 2 Puffs as instructed every 4 hours as needed for wheezing/shortness of breath. ondansetron (ZOFRAN) 4 mg tablet Take 1 tablet by mouth every 8 hours as needed for nausea/vomiting. hydrALAZINE (APRESOLINE) 50 mg tablet Take 1 tablet by mouth three times daily. metFORMIN (GLUCOPHAGE) 500 mg tablet Take 1 tablet by mouth twice daily with meals. carvedilol (COREG) 6.25 mg tablet Take 1 tablet by mouth twice daily with meals. lisinopril (ZESTRIL) 40 mg tablet Take 1 tablet by mouth daily at bedtime. amLODIPine (NORVASC) 10 mg tablet Take 1 tablet by mouth once daily. atorvastatin (LIPITOR) 40 mg tablet Take 1 tablet by mouth once daily. ketoconazole (NIZORAL) 2 % cream Apply 1 application to affected area once daily. aspirin, enteric coated (ASPIRIN, ENTERIC COATED) 81 mg EC tablet Take 81 mg by mouth once daily. CPAP/BIPAP/OTHER Type .CPAPSettings into a note to see current settings/supplies/DME information. ONETOUCH ULTRA2 METER blood sugar diagnostic (BLOOD GLUCOSE TEST) test strip Test blood sugar(s) 2 times daily. Dx: Type 2 DM - Uncontrolled E11.65 Insulin: No DX: E11.9 Lancets lancets Test blood sugar(s) 2 times daily. Dx: Type 2 DM - Uncontrolled E11.65 Insulin: No DX:E11.9 acetaminophen (TYLENOL) 325 mg tablet Take 2 tablets by mouth every 4 hours as needed for pain. Ascorbic Acid 1,000 mg tablet Take 1,000 mg by mouth once daily. PRN cholecalciferol, vitamin D3, (VITAMIN D3 ORAL) Take by mouth. 2000 international unit(s) daily vitamin B complex (B COMPLEX ORAL) Take 1 tablet by mouth once daily. No current facility-administered medications on file prior to visit. ACTIVE PROBLEM LIST Hypertension, Essential Anxiety Cva (Cerebral Vascular Accident) (Hcc) Diabetes Mellitus Type 2, Controlled, Without Complications (Hcc) Hyperlipidemia Ataxia Due to Acute Cerebrovascular Disease Obesity, Class II, Bmi 35-39.9 Intracranial Aneurysm Fabiola (Obstructive Sleep Apnea) Gerd (Gastroesophageal Reflux Disease) Irritable Bowel Syndrome With Diarrhea Back Pain Seborrheic Dermatitis Lacunar Stroke (Hcc) Hyperlipidemia Associated With Type 2 Diabetes Mellitus (Hcc) (Hcc) Hx of Craniotomy Imbalance Wound Dehiscence Subaortic Membrane Skin Ulcer of Scalp, Limited to Breakdown of Skin (Hcc) Social History Tobacco Use Smoking status: Former Current packs/day: 0.00 Average packs/day: 0.3 packs/day for 21.9 years (6.6 ttl pk (more content not included)...[facility]03-17-2025 History of Present illness Narrative* Fernanda Obregon APRN.[facility] - 05/27/2024 11:42 AM EDT Images from the original note were not included. [facility] NOTE Subjective Merle Bradley is a 63 year old year old who presents to [facility] today with complaint of nausea, vomiting, diarrhea, fever/chills, abdominal pain. States she has been having frequent non-bloody diarrhea multiple times daily and has been vomiting multiple times daily- unable to keep ndy food or fluids down x 3 days. States she has taken maalox, Zofran ODT and this have not relieved her symptoms. She now states she is urinating more frequently- history of Diabetes. Denies recent travel, denies sick contacts. Denies headaches, fever, sore throat, cough, shortness of breath, chest pains or skin rashes. Aside from symptoms as described above, patient has no other complaints at this time. HPI: see above Review of Systems Constitutional: Positive for chills, fatigue and fever. HENT: Negative for congestion, ear pain, postnasal drip, sinus pressure and sore throat. Eyes: Negative for pain, discharge and itching. Respiratory: Negative for cough, shortness of breath and wheezing. Cardiovascular: Negative for chest pain, palpitations and leg swelling. Gastrointestinal: Positive for abdominal distention, abdominal pain (all over- non specific), diarrhea, nausea and vomiting. Negative for blood in stool. Genitourinary: Positive for frequency. Negative for dysuria and urgency. Musculoskeletal: Negative for myalgias. Skin: Negative for rash. Neurological: Negative for headaches. Hematological: Negative for adenopathy. ALLERGIES Allergen Reactions Pollen Extracts Other: See Comments Sneezing, itchy eyes Current Outpatient Medications on File Prior to Visit Medication Sig estradiol (ESTRACE) 0.01 % (0.1 mg/gram) vaginal cream APPLY 2 GRAMS DAILY FOR 14 DAYS THEN 1-3 TIMES PER WEEK fluvoxaMINE Maleate (LUVOX) 25 mg tablet Take 25 mg by mouth daily at bedtime. LORazepam (ATIVAN) 0.5 mg TAKE 1 (ONE) TABLET EVERY TWELVE HOURS NEEDED FOR SEVERE ANXIETY/PANICATTACK nystatin (MYCOSTATIN) cream Apply to affected area two times a day. fluticasone-salmeterol HFA (ADVAIR HFA) 115-21 mcg/actuation inhaler Inhale 2 Puffs as instructed two times a day. pantoprazole DR (PROTONIX) 40 mg tablet Take 1 tablet by mouth once daily. 30 minutes before eating. albuterol HFA (PROVENTIL HFA, VENTOLIN HFA) 90 mcg/actuation inhaler Inhale 2 Puffs as instructed every 4 hours as needed for wheezing/shortness of breath. ondansetron (ZOFRAN) 4 mg tablet Take 1 tablet by mouth every 8 hours as needed for nausea/vomiting. hydrALAZINE (APRESOLINE) 50 mg tablet Take 1 tablet by mouth three times daily. metFORMIN (GLUCOPHAGE) 500 mg tablet Take 1 tablet by mouth twice daily with meals. carvedilol (COREG) 6.25 mg tablet Take 1 tablet by mouth twice daily with meals. lisinopril (ZESTRIL) 40 mg tablet Take 1 tablet by mouth daily at bedtime. amLODIPine (NORVASC) 10 mg tablet Take 1 tablet by mouth once daily. atorvastatin (LIPITOR) 40 mg tablet Take 1 tablet by mouth once daily. ketoconazole (NIZORAL) 2 % cream Apply 1 application to affected area once daily. aspirin, enteric coated (ASPIRIN, ENTERIC COATED) 81 mg EC tablet Take 81 mg by mouth once daily. CPAP/BIPAP/OTHER Type .CPAPSettings into a note to see current settings/supplies/DME information. ONETOUCH ULTRA2 METER blood sugar diagnostic (BLOOD GLUCOSE TEST) test strip Test blood sugar(s) 2 times daily. Dx: Type 2 DM - Uncontrolled E11.65 Insulin: No DX: E11.9 Lancets lancets Test blood sugar(s) 2 times daily. Dx: Type 2 DM - Uncontrolled E11.65 Insulin: No DX:E11.9 acetaminophen (TYLENOL) 325 mg tablet Take 2 tablets by mouth every 4 hours as needed for pain. Ascorbic Acid 1,000 mg tablet Take 1,000 mg by mouth once daily. PRN cholecalciferol, vitamin D3, (VITAMIN D3 ORAL) Take by mouth. 2000 international unit(s) daily vitamin B complex (B COMPLEX ORAL) Take 1 tablet by mouth once daily. No current facility-administered medications on file prior to visit. ACTIVE PROBLEM LIST Hypertension, Essential Anxiety Cva (Cerebral Vascular Accident) (Hcc) Diabetes Mellitus Type 2, Controlled, Without Complications (Hcc) Hyperlipidemia Ataxia Due to Acute Cerebrovascular Disease Obesity, Class II, Bmi 35-39.9 Intracranial Aneurysm Fabiola (Obstructive Sleep Apnea) Gerd (Gastroesophageal Reflux Disease) Irritable Bowel Syndrome With Diarrhea Back Pain Seborrheic Dermatitis Lacunar Stroke (Hcc) Hyperlipidemia Associated With Type 2 Diabetes Mellitus (Hcc) (Hcc) Hx of Craniotomy Imbalance Wound Dehiscence Subaortic Membrane Skin Ulcer of Scalp, Limited to Breakdown of Skin (Hcc) Social History Tobacco Use Smoking status: Former Current packs/day: 0.00 Average packs/day: 0.3 packs/day for 21.9 years (6.6 ttl pk-yrs) Types: Cigarettes Start date: 07/14/1978 Quit date: 05/21/2000 Years since quittin.0 Smokeless tobacco: Never Vaping Use Vaping status: Some Days Substances: CBD Substance Use Topics Alcohol use: Not Currently Drug use: Yes Types: Marijuana Comment: medical marijuana Objective BP 132/82 Pulse 80 Temp 37.1 C (98.7 F) (Tympanic) Resp 18 Wt 79.6 kg (175 lb 7.8 oz) LMP05/11/2009 SpO2 98% BMI 29.89 kg/m Physical Exam Vitals reviewed. Constitutional: General: She is not in acute distress. Appearance: Normal appearance. She is not ill-appearing or toxic-appearing. Cardiovascular: Rate and Rhythm: Normal rate and regular rhythm. Pulses: Normal pulses. Heart sounds: Normal heart sounds. Pulmonary: Effort: Pulmonary effort is normal. Breath sounds: Normal breath sounds. Abdominal: General: Bowel sounds are normal. There is distension. Palpations: Abdomen is soft. There is no mass. Tenderness: There is abdominal tenderness (diffuse- general tenderness all over lower abdomen). There is no right CVA tenderness, left CVA tenderness, guarding or rebound. Negative signs include Berrios's sign, Rovsing's sign, McBurney's sign, psoas sign and obturator sign. Hernia: No hernia is present. Skin: General: Skin is warm and dry. Capillary Refill: Capillary refill takes less than 2 seconds. Neurological: Mental Status: She is alert and oriented to person, place, and time. Assessment/Plan 1. Abdominal pain, unspecified abdominal location (Primary) -Advised to GO TO ER NOW due to significant symptoms x 3 days, Intermittent abdominal pain, Diabetes history, oral meds- Zofran not effective, needs full evaluation in the ED now. States she will have her S.O. take her to [facility] now. VSS NAD, ok to travel by car. Merle was offered and delines to hospitalist- ED Consult today. GO TO ED. Patient verbalized understanding and agreeable with treatment plan. Fernanda Obregon APRN PAINT BOOTH OPERATOR 05/27/2024 11:42 AM documented in this encounter[facility] History of Present illness Narrative* Maryam Salmeron APRN.PAINT BOOTH OPERATOR - 05/16/2024 10:30 AM EST Images from the original note were not included. 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 PCP: Yessenia Rodriguez MD Collaborating Physician: Dr. Adilene Lino 63 year old female with PMH DM, HTN, IBS, FABIOLA, lacunar stroke (2019) who was found to have incidental left LUBA aneurysm during hospitalization for stroke. She underwent diagnostic cerebral angiogram demonstrating an irregular 4 mm left LUBA aneurysm for which she underwent bicoronal craniotomy for clipping of distal left LUBA aneurysm 07/21/[address] Lino. She developed delayed wound dehiscence and underwent I&D, removal of hardware, and primary closure on 05/13/2021. Operative cultures grewMSSA and patient was discharged on IV oxacillin (completed 06/2021). She previously noted new incisional drainage to the right-side of her bicoronal incision starting in November 2021. She had delayed follow-up secondary to sister's cancer diagnosis in late 2021. Shepresented to clinic in March 2022 for wound check with plan for MRI brain and bloodwork. She underwent brain MRI and was referred to Plastic Surgery. She was lost to follow-up and had recently established with a local plastic surgeon who recommended she see neurosurgery in follow-up to discuss co-management options with plastic surgery as no local neurosurgery. She presents to clinic today in follow-up with continued draining incisional wound. She has been deemed disabled following her stroke and switched to Medicare for which she notes challenges with affording copays with specialists which has limited her follow-up. She reports continued drainage from right side of bicoronal incision with skull indentation that remains unchanged since her prior visit. She denies any recent fevers or illnesses. She notes numbnessto incision. Denies new neurologic concerns. Handedness: right-handed Past Medical History: ACTIVE PROBLEM LIST Hypertension, Essential Anxiety Cva (Cerebral Vascular Accident) (Hcc) Diabetes Mellitus Type 2, Controlled, Without Complications (Hcc) Hyperlipidemia Ataxia Due to Acute Cerebrovascular Disease Obesity, Class II, Bmi 35-39.9 Intracranial Aneurysm Fabiola (Obstructive Sleep Apnea) Gerd (Gastroesophageal Reflux Disease) Irritable Bowel Syndrome With Diarrhea Back Pain Seborrheic Dermatitis Lacunar Stroke (Hcc) Hyperlipidemia Associated With Type 2 Diabetes Mellitus (Hcc) (Hcc) Hx of Craniotomy Imbalance Wound Dehiscence Subaortic Membrane Skin Ulcer of Scalp, Limited to Breakdown of Skin (Hcc) PAST SURGICAL HISTORY Procedure Laterality Date APPENDECTOMY SECTION HX COLONOSCOPY 02/16/2022 repeat in 10 years LIG/TRNSXJ FLP TUBE ABDL/VAG APPR UNI/BI PICC LINE INSERT/CONSULT 05/15/2021 PILONIDAL CYST/SINUS EXCISION 1985 TONSILLECTOMY PRIMARY/SECONDARY <AGE 14 Allergies: Pollen Extracts Medications: Current Outpatient Medications Medication Sig nystatin (MYCOSTATIN) cream Apply to affected area two times a day. fluticasone-salmeterol HFA (ADVAIR HFA) 115-21 mcg/actuation inhaler Inhale 2 Puffs as instructed two times a day. pantoprazole DR (PROTONIX) 40 mg tablet Take 1 tablet by mouth once daily. 30 minutes before eating. albuterol HFA (PROVENTIL HFA, VENTOLIN HFA) 90 mcg/actuation inhaler Inhale 2 Puffs as instructed every 4 hours as needed for wheezing/shortness of breath. ondansetron (ZOFRAN) 4 mg tablet Take 1 tablet by mouth every 8 hours as needed for nausea/vomiting. hydrALAZINE (APRESOLINE) 50 mg tablet Take 1 tablet by mouth three times daily. metFORMIN (GLUCOPHAGE) 500 mg tablet Take 1 tablet by mouth twice daily with meals. carvedilol (COREG) 6.25 mg tablet Take 1 tablet by mouth twice daily with meals. lisinopril (ZESTRIL) 40 mg tablet Take 1 tablet by mouth daily at bedtime. amLODIPine (NORVASC) 10 mg tablet Take 1 tablet by mouth once daily. atorvastatin (LIPITOR) 40 mg tablet Take 1 tablet by mouth once daily. ketoconazole (NIZORAL) 2 % cream Apply 1 application to affected area once daily. aspirin, enteric coated (ASPIRIN, ENTERIC COATED) 81 mg EC tablet Take 81 mg by mouth once daily. CPAP/BIPAP/OTHER Type .CPAPSettings into a note to see current settings/supplies/DME information. ONETOUCH ULTRA2 METER blood sugar diagnostic (BLOOD GLUCOSE TEST) test strip Test blood sugar(s) 2 times daily. Dx: Type 2 DM - Uncontrolled E11.65 Insulin: No DX: E11.9 Lancets lancets Test blood sugar(s) 2 times daily. Dx: Type 2 DM - Uncontrolled E11.65 Insulin: No DX:E11.9 acetaminophen (TYLENOL) 325 mg tablet Take 2 tablets by mouth every 4 hours as needed for pain. (Patient not taking: Reported on 01/05/2024) Ascorbic Acid 1,000 mg tablet Take 1,000 mg by mouth once daily. PRN cholecalciferol, vitamin D3, (VITAMIN D3 ORAL) Take by mouth. 2000 international unit(s) daily vitamin B complex (B COMPLEX ORAL) Take 1 tablet by mouth once daily. No current facility-administered medications for this visit. Social History Tobacco Use Smoking status: Former Current packs/day: 0.00 Average packs/day: 0.3 packs/day for 21.9 years (6.6 ttl pk-yrs) Types: Cigarettes Start date: 07/14/1978 Quit date: 05/21/2000 Years since quittin.0 Smokeless tobacco: Never Vaping Use Vaping status: Some Days Substances: CBD Substance Use Topics Alcohol use: Not Currently Drug use: Not Currently Types: Marijuana Comment: medical marijuana Family History: Subarachnoid hemorrhage: None Aneurysms: None Stroke: Yes, grandmother, great aunts, father Vascular malformations: None Other neurologic diseases: Yes, seizure (sister) Unsure of maternal history, mom with history of alcoholism and depression Review of Systems Constitutional: Negative Eyes: Negative HENT: Negative Cardiovascular: Negative GI: Negative : Negative Musculoskeletal: Negative Integumentary: Right craniotomy incision with serous drainage Heme/Lymph: Negative Allergy/Immunologic: Negative Neurologic: +intermittent tingling and numbness in R mouth, thumb/4th/5th fingers (baseline s/p CVA) Psychiatric: Negative Patient Entered Questionnaires PROMIS/NeuroQoL Score Percentiles 05/10/2024 07/16/2022 05/30/2022 Physical Health Physical Function Percentile 16* 8 12 Sleep Percentile 21* 14 12 Fatigue Percentile 24* 24* 10 Pain Interference Percentile 12 12 16* 05/10/2024 07/16/2022 05/30/2022 PROMIS SOCIAL ROLE SCORE Social Role Satisfaction Percentile 31 10 14 05/10/2024 07/16/2022 05/30/2022 Mental Health NeuroQol Cognitive Function Percentile 31 12 General Self-Efficacy Percentile 38 14 8 05/10/2024 12/02/2023 07/10/2023 PROMIS Global Health Scale Physical Health Percentile 10 15 2 Mental Health Percentile 13 26* 19* Patient-reported Percentiles provide an indication of how a patient's score ranks in relation to the [place] general population. > 31st percentile is within normal limits or better * < 31st percentile is at least SD worse than population, which may be clinically relevant < 16th percentile is at least 1 SD worse than population and warrants attention Depression Screenin12/02/2023 01/05/2024 05/10/2024 PHQ-9 Score 10 9 Self-Harm Response Not at all Not at all Not at all PHQ-9 Scores: PHQ-9 Self-Harm (Item 9) Response: 0 - 9 No to Mild depression 0 - Not at all 10 - 14 Moderate depression 1 - Several Days > 15 Severe depression 2 - More than half the days 3 - Nearly every day 07/11/2020 Sleep Apnea Probability Score Probability (%) 35.64 (Sleep study not recommended) PHYSICAL EXAMINATION LMP 05/11/2009 General: Well-developed, well-nourished, in no acute distress. HEENT: Normocephalic, atraumatic. Sclerae anicteric. Lungs: Respirations even and unlabored. Neurological: Awake, alert, oriented to person, place, and time. Speech fluent, no dysarthria. Goodattention and insight into illness. Cranial Nerves: Extraocular movements grossly intact. Facial movements appear normal and symmetric. Motor: No pronator drift or tremor. Moves all extremities freely. Gait: Ambulates easily into the office without assistance. Incision: Serous drainage overlying depression on right skull along bicoronal craniotomy incision without erythema. IMAGING MRI brain w/wo contrast (05/03/2022): Osseous irregularity of the bifrontal craniotomy bone flap, with subjacent dural enhancement. These findings are nonspecific, could relate to granulation and/or chronic infection. Otherwise no discrete abscess or subjacent acute parenchymal findings. 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 CTH (12/27/2021): Changes of midline frontal craniotomy for LUBA aneurysm clipping. Heterogeneous irregularity of the calvarial flap to the right of midline without definitive overlying scalp swellingor edema. Comparison should be made with any available recent prior imaging to assess stability of this finding which could be infectious in etiology given reported overlying scalp wound. Otherwise no acute intracranial abnormality. DSA (07/21/2020): No residual filling of the left LUBA aneurysm status-post surgical clipping. DSA (01/08/2020): Left anterior cerebral artery irregular 4.5 mm x 2.6 mm x 3.9 mm aneurysm arisingfrom the pericallosal-callosomarginal junction. LABS Latest Reference Range & Units 04/05/22 10:21 Sodium 136 - 144 mmol/L 138 Potassium 3.7 - 5.1 mmol/L 4.2 Chloride 97 - 105 mmol/L 105 CO2 22 - 30 mmol/L 22 BUN 7 - 21 mg/dL 13 Creatinine 0.58 - 0.96 mg/dL 0.65 Glucose 74 - 99 mg/dL 132 (H) Calcium 8.5 - 10.2 mg/dL 9.7 Anion Gap 9 - 18 mmol/L 11 eGFR >=60 mL/min/1.73m 102 UltraSens C-Reactive Protein <3.1 mg/L 1.6 Cholesterol, Total <200 mg/dL 116 Triglyceride <150 mg/dL 140 Fasting Time hrs 12 HDL Cholesterol >39 mg/dL 50 LDL Cholesterol <100 mg/dL 38 VLDL Cholesterol <30 mg/dL 28 TC:HDL Ratio <5.10 2.32 LDL:HDL Ratio <2.54 0.76 Non HDL Cholesterol <130 mg/dL 66 Prealbumin 17 - 36 mg/dL 30 Hemoglobin A1C 4.3 - 5.6 % 6.1 (H) Estimated Average Glucose mg/dL 128 WBC 3.70 - 11.00 k/uL 8.76 RBC 3.90 - 5.20 m/uL 4.96 Hemoglobin 11.5 - 15.5 g/dL 14.8 Hematocrit 36.0 - 46.0 % 42.8 Platelet Count 150 - 400 k/uL 270 MCV 80.0 - 100.0 fL 86.3 MCH 26.0 - 34.0 pg 29.8 MCHC 30.5 - 36.0 g/dL 34.6 MPV 9.0 - 12.7 fL 10.9 RDW-CV 11.5 - 15.0 % 13.4 DTYPE Auto Neut% % 43.0 Abs Neut (ANC) 1.45 - 7.50 k/uL 3.78 Lymph% % 48.3 Abs Lymph 1.00 - 4.00 k/uL 4.23 (H) Wells% % 5.6 Abs Wells <0.87 k/uL 0.49 Eosin% % 2.1 Abs Eosin <0.46 k/uL 0.18 Baso% % 0.5 Abs Baso <0.11 k/uL 0.04 Immature Gran % % 0.5 IMMATURE GRANS (ABS) <0.10 k/uL 0.04 NRBC /100 WBC 0.0 Absolute nRBC <0.01 k/uL <0.01 WSR 0 - 20 mm/hr 2 (H): Data is abnormally high IMPRESSION Unruptured left LUBA aneurysm s/p bicoronal craniotomy for clipping 07/21/2020 with delayed wound dehiscence s/p I&D, removal of hardware and primary closure 05/13/2021, completed RYAN oxacillin for +MSSA 06/24/2021 with persistent incisional drainage from right-side of incision since 03/2022 whom was lost to follow-up. Remote lacunar stroke in 2019 Hypertension Diabetes Recommendations: Review with Dr. Lino Cerebral angiogram at 5 years post aneurysm clipping (07/2025) 5. Optimization of aneurysm risk factors Blood pressure control: goal BP less than 140/90 Refrain from cigarette smoking 6. Return to clinic pending staff review I spent a total of 22 minutes on the date of the service which included preparing to see the patient, [id number] patient care, completing clinical documentation, obtaining and/or reviewing separately obtained history, performing a medically appropriate examination, counseling and educating the pat ient/family/caregiver, communicating with other HCPs (not separately reported), communicating results to the patient/family/caregiver, and care coordination (not separately reported). Some elements may have been copied from a previous note and have been updated/reviewed where appropriate. All portions reflect current medical decision making from today. SIGNATURE Maryam Salmeron APRN.CNP 05/16/2024 documented in this encounterMer[facility] NoteHNO ID: [id number] Author: MARYAM SALMERON APRN.CNP Service: ? Author Type: Nurse Practitioner Type: Progress Notes Filed: 06/03/2024 22:27 Note Text: [facility] Established Visit Merle Pizarromilagros [facility]#: [id number] Date of Service: 05/16/2024 Primary Care Provider: Yohan Roblero, MSN, CERTIFIED ACTIVITIES DIRECTOR, ENGINEERING SPECIALIST-C FOLLOW UP VISIT Merle Bradley is a 63 year old female, who presents for neurologic evaluation following bicoronal craniotomy for clipping of distal left LUBA aneurysm 07/21/2020 complicated by delayed wound dehiscence s/p washout, drainage, removal of hardware, primary closure on 05/13/2021. PCP: eYssenia Rodriguez MD Collaborating Physician: Dr. Adilene Lino 63 year old female with PMH DM, HTN, IBS, FABIOLA, lacunar stroke (2019) who was found to have incidental left LUBA aneurysm during hospitalization for stroke. She underwent diagnostic cerebral angiogram demonstrating an irregular 4 mm left LUBA aneurysm for which she underwent bicoronal craniotomy for clipping of distal left LUBA aneurysm 07/21/[address] Lino. She developed delayed wound dehiscence and underwent IANDD, removal of hardware, and primary closure on 05/13/2021. Operative cultures grew MSSA and patient was discharged on IV oxacillin (completed 06/2021). She previously noted new incisional drainage to the right-side of her bicoronal incision starting in November 2021. She had delayed follow-up secondary to sister's cancer diagnosis in late 2021. She presented to clinic in March 2022 for wound check with plan for MRI brain and bloodwork. She underwent brain MRI and was referred to Plastic Surgery. She was lost to follow-up and had recently established with a local plastic surgeon who recommended she see neurosurgery in follow-up to discuss co-management options with plastic surgery as no local neurosurgery. She presents to clinic today in follow-up with continued draining incisional wound. She has been deemed disabled following her stroke and switched to Medicare for which she notes challenges with affording copays with specialists which has limited her follow-up. She reports continued drainage from right side of bicoronal incision with skull indentation that remains unchanged since her prior visit. She denies any recent fevers or illnesses. She notes numbness to incision. Denies new neurologic concerns. Handedness: right-handed Past Medical History: ACTIVE PROBLEM LIST Hypertension, Essential Anxiety Cva (Cerebral Vascular Accident) (Hcc) Diabetes Mellitus Type 2, Controlled, Without Complications (Hcc) Hyperlipidemia Ataxia Due to Acute Cerebrovascular Disease Obesity, Class II, Bmi 35-39.9 Intracranial Aneurysm Fabiola (Obstructive Sleep Apnea) Gerd (Gastroesophageal Reflux Disease) Irritable Bowel Syndrome With Diarrhea Back Pain Seborrheic Dermatitis Lacunar Stroke (Hcc) Hyperlipidemia Associated With Type 2 Diabetes Mellitus (Hcc) (Hcc) Hx of Craniotomy Imbalance Wound Dehiscence Subaortic Membrane Skin Ulcer of Scalp, Limited to Breakdown of Skin (Hcc) PAST SURGICAL HISTORY Procedure Laterality Date APPENDECTOMY SECTION HX COLONOSCOPY 02/16/2022 repeat in 10 years LIG/TRNSXJ FLP TUBE ABDL/VAG APPR UNI/BI PICC LINE INSERT/CONSULT 05/15/2021 PILONIDAL CYST/SINUS EXCISION 1985 TONSILLECTOMY PRIMARY/SECONDARY Allergies: Pollen Extracts Medications: Current Outpatient Medications Medication Sig nystatin (MYCOSTATIN) cream Apply to affected area two times a day. fluticasone-salmeterol HFA (ADVAIR HFA) 115-21 mcg/actuation inhaler Inhale 2 Puffs as instructed two times a day. pantoprazole DR (PROTONIX) 40 mg tablet Take 1 tablet by mouth once daily. 30 minutes before eating. albuterol HFA (PROVENTIL HFA, VENTOLIN HFA) 90 mcg/actuation inhaler Inhale 2 Puffs as instructed every 4 hours as needed for wheezing/shortness of breath. ondansetron (ZOFRAN) 4 mg tablet Take 1 tablet by mouth every 8 hours as needed for nausea/vomiting. hydrALAZINE (APRESOLINE) 50 mg tablet Take 1 tablet by mouth three times daily. metFORMIN (GLUCOPHAGE) 500 mg tablet Take 1 tablet by mouth twice daily with meals. carvedilol (COREG) 6.25 mg tablet Take 1 tablet by mouth twice daily with meals. lisinopril (ZESTRIL) 40 mg tablet Take 1 tablet by mouth daily at bedtime. amLODIPine (NORVASC) 10 mg tablet Take 1 tablet by mouth once daily. atorvastatin (LIPITOR) 40 mg tablet Take 1 tablet by mouth once daily. ketoconazole (NIZORAL) 2 % cream Apply 1 application to affected area once daily. aspirin, enteric coated (ASPIRIN, ENTERIC COATED) 81 mg EC tablet Take 81 mg by mouth once daily. CPAP/BIPAP/OTHER Type .CPAPSettings into a note to see current settings/supplies/DME information. ONETOUCH ULTRA2 METER blood sugar diagnostic (BLOOD GLUCOSE TEST) test strip Test blood sugar(s) 2 times daily. Dx: Type 2 DM - Uncontrolled E11.65 Insulin: No DX: E11.9 Lancets lanc (more content not included)...[facility] 05-07-2024 Telephone encounter Note* Telephone Encounter - Dorina Yanes - 05/07/2024 4:21 PM EST Please sent to triage if scheduling is needed Thank you Dorina [facility]02-25-2025 Miscellaneous Notes* Telephone Encounter - Dorina Yanes - 05/07/2024 4:21 PM EST Please sent to triage if scheduling is needed Thank you Dorina * Telephone Encounter - Aisha Obregon APRN.PAINT BOOTH OPERATOR - 05/07/2024 3:19 PM EST Images from the original note were not included. Direct referral to Dr. Grullon: Referring: Dr. José Miguel Bee Diagnosis: Wound repair/Calvarial defect MRI BRAIN 05/03/22: 05/03/2022 4:07 PM - Radiology, O[place] In Impression IMPRESSION: Osseous irregularity of the bifrontal craniotomy bone flap, with subjacent dural enhancement. These findings are nonspecific, could relate to granulation and/or chronic infection. Otherwise no discrete abscess or subjacent acute parenchymal findings. 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 Shop Tailor: [facility] Transcribe Date/Time: May 03 2022 3:54P Dictated by : ELIZABETH ACOSTA MD This examination was interpreted and the report reviewed and electronically signed by: ELIZABETH ACOSTA MD on May 03 2022 4:05PM EST Results-Findings * * *Final Report* * * DATE OF EXAM: May 03 2022 2:46PM [facility] - MRI BRAIN WO/W IVCON / PROCEDURE REASON: multiple diagnoses * * * * Physician Interpretation * * * * EXAMINATION: MRI BRAIN WO/W IVCON HISTORY: Intracranial aneurysm. Postoperative infection, unspecified type, subsequent encounter. Acquired skull defect Postoperative wound dehiscence, initial encounter TECHNIQUE: Routine brain MRI protocol without and with contrast including diffusion and gradient echo images. MQ: MRBWOW_2 Contrast: 20 mL Dotarem MRI brain 11/25/2019 COMPARISON: None. RESULT: Postsurgical change: Bifrontal craniotomy. Osseous irregularity with enhancement along the internal margin of the craniotomy, with mild diffusion signal abnormality in the bone.. Dural thickening/enhancement deep to the craniotomy. No evidence of a discrete collection. The anterior aspect of the superior sagittal sinus is shows absence of normal flow void in this region. Acute Change: There is no evidence of restricted diffusion to suggest an acute infarct. Hemorrhage: No evidence of prior parenchymal hemorrhage on the gradient echo images. Mass Lesion/ Mass Effect: No evidence of an intracranial mass or extra-axial fluid collection. No abnormal parenchymal or leptomeningeal enhancement is noted following contrast administration. No significant mass effect. Chronic Change: The white matter is within normal limits of signal intensity for age. Parenchyma: No significant volume loss for age. The brain parenchyma is otherwise within normal limits of signal intensity and morphology. Ventricles: Normal caliber and morphology. Skull Base: Hypothalamic and pituitary region are grossly normal. Craniocervical junction is normal. No significant marrow replacement process. Vasculature: Anterior aspect of the superior sagittal sinus likely occluded as mentioned above. The dural venous sinuses are otherwise patent. Susceptibility artifact in the anterior hemispheric region from prior aneurysm clipping which is otherwise not well assessed on this study. Other: The visualized paranasal sinuses and mastoid air cells are clear. The orbits and extracranial soft tissues are unremarkable. * Telephone Encounter - Radha Redman - 05/07/2024 12:37 PM EST Images from the original note were not included. * Telephone Encounter - Radha Redman - 05/07/2024 11:52 AM EST Images from the original note were not included. Records received via Onbase from [facility] (ph. [phone] fx. [phone]), pushed through to [email or web address]. Pt added to DB. Sent fax requesting images be electronically uploaded. documented in [facility] Telephone encounter Note * Telephone Encounter - Aisha Obregon APRN.PAINT BOOTH OPERATOR - 05/07/2024 3:19 PM EST Images from the original note were not included. Direct referral to Dr. Grullon: Referring: Dr. José Miguel Bee Diagnosis: Wound repair/Calvarial defect MRI BRAIN 05/03/22: 05/03/2022 4:07 PM - Radiology, Oru In Impression IMPRESSION: Osseous irregularity of the bifrontal craniotomy bone flap, with subjacent dural enhancement. These findings are nonspecific, could relate to granulation and/or chronic infection. Otherwise no discrete abscess or subjacent acute parenchymal findings. 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 Shop Tailor: [facility] Transcribe Date/Time: May 03 2022 3:54P Dictated by : ELIZABETH ACOSTA MD This examination was interpreted and the report reviewed and electronically signed by: ELIZABETH ACOSTA MD on May 03 2022 4:05PM EST Results-Findings * * *Final Report* * * DATE OF EXAM: May 03 2022 2:46PM [facility] - MRI BRAIN WO/W IVCON / PROCEDURE REASON: multiple diagnoses * * * * Physician Interpretation * * * * EXAMINATION: MRI BRAIN WO/W IVCON HISTORY: Intracranial aneurysm. Postoperative infection, unspecified type, subsequent encounter. Acquired skull defect Postoperative wound dehiscence, initial encounter TECHNIQUE: Routine brain MRI protocol without and with contrast including diffusion and gradient echo images. MQ: MRBWOW_2 Contrast: 20 mL Dotarem MRI brain 11/25/2019 COMPARISON: None. RESULT: Postsurgical change: Bifrontal craniotomy. Osseous irregularity with enhancement along the internal margin of the craniotomy, with mild diffusion signal abnormality in the bone.. Dural thickening/enhancement deep to the craniotomy. No evidence of a discrete collection. The anterior aspect of the superior sagittal sinus is shows absence of normal flow void in this region. Acute Change: There is no evidence of restricted diffusion to suggest an acute infarct. Hemorrhage: No evidence of prior parenchymal hemorrhage on the gradient echo images. Mass Lesion/ Mass Effect: No evidence of an intracranial mass or extra-axial fluid collection. No abnormal parenchymal or leptomeningeal enhancement is noted following contrast administration. No significant mass effect. Chronic Change: The white matter is within normal limits of signal intensity for age. Parenchyma: No significant volume loss for age. The brain parenchyma is otherwise within normal limits of signal intensity and morphology. Ventricles: Normal caliber and morphology. Skull Base: Hypothalamic and pituitary region are grossly normal. Craniocervical junction is normal. No significant marrow replacement process. Vasculature: Anterior aspect of the superior sagittal sinus likely occluded as mentioned above. The dural venous sinuses are otherwise patent. Susceptibility artifact in the anterior hemispheric region from prior aneurysm clipping which is otherwise not well assessed on this study. Other: The visualized paranasal sinuses and mastoid air cells are clear. The orbits and extracranial soft tissues are unremarkable. [facility]02-25-2025 Telephone encounter Note* Telephone Encounter - Radha Redman - 05/07/2024 12:37 PM EST Images from the original note were not included. [facility]02-25-2025 Telephone encounter Note* Telephone Encounter - Radha Redman - 05/07/2024 11:52 AM EST Images from the original note were not included. Records received via Onbase from [facility] (ph. [phone] fx. [phone]), pushed through to [email or web address]. Pt added to DB. Sent fax requesting images be electronically uploaded. [facility]02-21-2025 Evaluation note* Diagnosis Onset Date Resolution Status Admit Date Open scalp wound acute May 03, 2024 1:39pm [facility] Work Phone: 1(106) 647-456001-31-2025 NoteHNO ID: [id number] Author: TRANG GIBBS MA Service: ? Author Type: Edge Beader Type: Progress Notes Filed: 04/12/2024 11:19 Note Text: POPULATION HEALTH NAVIGATION OUTREACH Action/FYI spoke to pt to schedule wellness, (follow up for wellness), hcc gap closure, mammogram, diabetic retinal eye exam, bp to be addressed as not compliant not <130/80, ked- uacr not pended as appointment wasn't made, cmp and hgba1c- orders are in, pt declined scheduling she said that she is sorry but she moved and won't be able to see pcp any longer- updated pcp, she said that she is looking for a new one Reason for Outreach Care Gap/HCC or Scheduling Wellness Visits Care Gaps due: Medicare Annual Wellness Visit Follow-up Appointment Breast Cancer Screening Controlling Blood Pressure Diabetic Eye Exam HBA1C KED Patient Contacted: Spoke to patient/parent/or legal guardian Patient identified by name and : Yes Care Gap/HCC/Scheduling Wellness actions taken: Patient declined: Other: pt has moved and will find a new pcp PCP field updated HCC related Navigation Signature: Trang Gibbs MA April 12, 2024 11:15 [facility]01-31-2025 History of Present illness Narrative* Trang Gibbs MA - 04/12/2024 11:15 AM EST POPULATION HEALTH NAVIGATION OUTREACH Action/FYI spoke to pt to schedule wellness, (follow up for wellness), hcc gap closure, mammogram, diabetic retinal eye exam, bp to be addressed as not compliant not <130/80, ked- uacr not pended as appointment wasn't made, cmp and hgba1c- orders are in, pt declined scheduling she said that she is sorry but she moved and won't be able to see pcp any longer- updated pcp, she said that she is looking for anew one Reason for Outreach Care Gap/HCC or Scheduling Wellness Visits Care Gaps due: Medicare Annual Wellness Visit Follow-up Appointment Breast Cancer Screening Controlling Blood Pressure Diabetic Eye Exam HBA1C KED Patient Contacted: Spoke to patient/parent/or legal guardian Patient identified by name and : Yes Care Gap/HCC/Scheduling Wellness actions taken: Patient declined: Other: pt has moved and will find a new pcp PCP field updated HCC related Navigation Signature: Trang Gibbs MA April 12, 2024 11:15 AM documented in this encounterMer[facility] NotePatient Outreach (NETNAV) MERLE BRADLEY ([id number]) 1960 F Date Time Provider Department 04/12/24 TRANG GIBBS During your visit today, we recorded the following information about you: Trang Gibbs MA 04/12/2024 11:19 AM Signed POPULATION HEALTH NAVIGATION OUTREACH Action/FYI spoke to pt to schedule wellness, (follow up for wellness), hcc gap closure, mammogram, diabetic retinal eye exam, bp to be addressed as not compliant not <130/80, ked- uacr not pended as appointment wasn't made, cmp and hgba1c- orders are in, pt declined scheduling she said that she is sorry but she moved and won't be able to see pcp any longer- updated pcp, she said that she is looking for a new one Reason for Outreach Care Gap/HCC or Scheduling Wellness Visits Care Gaps due: Medicare Annual Wellness Visit Follow-up Appointment Breast Cancer Screening Controlling Blood Pressure Diabetic Eye Exam HBA1C KED Patient Contacted: Spoke to patient/parent/or legal guardian Patient identified by name and : Yes Care Gap/HCC/Scheduling Wellness actions taken: Patient declined: Other: pt has moved and will find a new pcp PCP field updated HCC related Navigation Signature: Trang Gibbs MA April 12, 2024 11:15 AM Allergies As of Date: 04/12/2024 Noted Allergy Reaction POLLEN EXTRACTS 06/15/2022 14 - Other: See Comments Comments: Sneezing, itchy eyes Date Reviewed: 01/05/2024 Reviewed by: Mirian Iraheta LPN - Fully Assessed Reason for Visit: Population Health Navigation Outreach [3910] Cmt: Maria A briones Prescriptions as of 04/12/2024 - nystatin (MYCOSTATIN) cream Apply to affected area two times a day. - fluticasone-salmeterol HFA (ADVAIR HFA) 115-21 mcg/actuation inhaler Inhale 2 Puffs as instructed two times a day. - pantoprazole DR (PROTONIX) 40 mg tablet Take 1 tablet by mouth once daily. 30 minutes before eating. - albuterol HFA (PROVENTIL HFA, VENTOLIN HFA) 90 mcg/actuation inhaler Inhale 2 Puffs as instructed every 4 hours as needed for wheezing/shortness of breath. - ondansetron (ZOFRAN) 4 mg tablet Take 1 tablet by mouth every 8 hours as needed for nausea/vomiting. - hydrALAZINE (APRESOLINE) 50 mg tablet Take 1 tablet by mouth three times daily. - metFORMIN (GLUCOPHAGE) 500 mg tablet Take 1 tablet by mouth twice daily with meals. - carvedilol (COREG) 6.25 mg tablet Take 1 tablet by mouth twice daily with meals. - lisinopril (ZESTRIL) 40 mg tablet Take 1 tablet by mouth daily at bedtime. - amLODIPine (NORVASC) 10 mg tablet Take 1 tablet by mouth once daily. - atorvastatin (LIPITOR) 40 mg tablet Take 1 tablet by mouth once daily. - ketoconazole (NIZORAL) 2 % cream Apply 1 application to affected area once daily. - aspirin, enteric coated (ASPIRIN, ENTERIC COATED) 81 mg EC tablet Take 81 mg by mouth once daily. - CPAP/BIPAP/OTHER Type .CPAPSettings into a note to see current settings/supplies/DME information. - ONETOUCH ULTRA2 METER - blood sugar diagnostic (BLOOD GLUCOSE TEST) test strip Test blood sugar(s) 2 times daily. Dx: Type 2 DM - Uncontrolled E11.65 Insulin: No DX: E11.9 - Lancets lancets Test blood sugar(s) 2 times daily. Dx: Type 2 DM - Uncontrolled E11.65 Insulin: No DX:E11.9 - acetaminophen (TYLENOL) 325 mg tablet Take 2 tablets by mouth every 4 hours as needed for pain. - Ascorbic Acid 1,000 mg tablet Take 1,000 mg by mouth once daily. PRN - cholecalciferol, vitamin D3, (VITAMIN D3 ORAL) Take by mouth. 2000 international unit(s) daily - vitamin B complex (B COMPLEX ORAL) Take 1 tablet by mouth once daily. Meds Comments as of 05/18/2021: 12/03/19 The medications are managed by this patient by: PATIENT Diya Prado, COA 05/18/21 SOC no severe interactions noted Problem List As Of Date 04/12/2024 Noted Resolved Hypertension, essential [I10] 02/13/2006 Anxiety [F41.9] 03/22/2006 Hypertensive emergency [I16.1] 11/12/2019 11/15/2019 Obesity, Class III, BMI >= 40 [E66.01] 11/12/2019 11/28/2019 CVA (cerebral vascular accident) (HCC) [I63.9] 11/12/2019 Diabetes mellitus type 2, controlled, without c*11/14/2019 Hyperlipidemia [E78.5] 11/14/2019 Ataxia due to acute cerebrovascular disease [I6*11/25/2019 Obesity, Class II, BMI 35-39.9 [E66.812] 11/28/2019 Intracranial aneurysm [I67.1] 12/18/2019 Obesity, Class III, BMI >= 40 [E66.01] 01/07/2020 07/14/2020 FABIOLA (obstructive sleep apnea) [G47.33] GERD (gastroesophageal reflux disease) [K21.9] Irritable bowel syndrome with diarrhea [K58.0] Back pain [M54.9] Seborrheic dermatitis [L21.9] 07/20/2020 Lacunar stroke (HCC) [I63.81] 10/22/2020 Hyperlipidemia associated with type 2 diabetes *10/22/2020 Hx of craniotomy [Z98.890] 12/28/2020 Imbalance [R26.89] 12/31/2020 Wound dehiscence [T81.30XA] 05/11/2021 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 Author Type: Edge Beader Type: Progress Notes Filed: 03/08/2024 11:21 Note Text: POPULATION HEALTH NAVIGATION OUTREACH Action/FYI msg to schedule wellness, follow up, diabetic retinal eye exam, hgba1c- not pended as I didn't speak to the patient Reason for Outreach Care Gap/HCC or Scheduling Wellness Visits Care Gaps due: Medicare Annual Wellness Visit Follow-up Appointment Diabetic Eye Exam HBA1C Patient Contacted: Unable or unnecessary to reach patient: Unable to leave message [employer] message sent Navigation Signature: Trang Gibbs MA March 08, 2024 11:20 [facility]12-27-2024 History of Present illness Narrative* Trang Gibbs MA - 03/08/2024 11:19 AM EST POPULATION HEALTH NAVIGATION OUTREACH Action/FYI msg to schedule wellness, follow up, diabetic retinal eye exam, hgba1c- not pended as I didn't speak to the patient Reason for Outreach Care Gap/HCC or Scheduling Wellness Visits Care Gaps due: Medicare Annual Wellness Visit Follow-up Appointment Diabetic Eye Exam HBA1C Patient Contacted: Unable or unnecessary to reach patient: Unable to leave message Eventbrite sent Navigation Signature: Trang Gibbs MA March 08, 2024 11:20 AM documented in this encounterMer[facility]12-27-[facility]24 NotePatient Outreach (NETNAV) MERLE BRADLEY ([id number]) 1960 F Date Time Provider Department 03/08/24 TRANG GIBBS During your visit today, we recorded the following information about you: Trang Gibbs MA 03/08/2024 11:21 AM Signed POPULATION HEALTH NAVIGATION OUTREACH Action/FYI msg to schedule wellness, follow up, diabetic retinal eye exam, hgba1c- not pended as I didn't speak to the patient Reason for Outreach Care Gap/HCC or Scheduling Wellness Visits Care Gaps due: Medicare Annual Wellness Visit Follow-up Appointment Diabetic Eye Exam HBA1C Patient Contacted: Unable or unnecessary to reach patient: Unable to leave message [employer] message sent Navigation Signature: Trang Gibbs DARI March 08, 2024 11:20 AM Allergies As of Date: 03/08/2024 Noted Allergy Reaction POLLEN EXTRACTS 06/15/2022 14 - Other: See Comments Comments: Sneezing, itchy eyes Date Reviewed: 01/05/2024 Reviewed by: Mirian Iraheta LPN - Fully Assessed Reason for Visit: Population Health Navigation Outreach [3910] Cmt: maria a briones Prescriptions as of 03/08/2024 - nystatin (MYCOSTATIN) cream Apply to affected area two times a day. - fluticasone-salmeterol HFA (ADVAIR HFA) 115-21 mcg/actuation inhaler Inhale 2 Puffs as instructed two times a day. - pantoprazole DR (PROTONIX) 40 mg tablet Take 1 tablet by mouth once daily. 30 minutes before eating. - albuterol HFA (PROVENTIL HFA, VENTOLIN HFA) 90 mcg/actuation inhaler Inhale 2 Puffs as instructed every 4 hours as needed for wheezing/shortness of breath. - ondansetron (ZOFRAN) 4 mg tablet Take 1 tablet by mouth every 8 hours as needed for nausea/vomiting. - hydrALAZINE (APRESOLINE) 50 mg tablet Take 1 tablet by mouth three times daily. - metFORMIN (GLUCOPHAGE) 500 mg tablet Take 1 tablet by mouth twice daily with meals. - carvedilol (COREG) 6.25 mg tablet Take 1 tablet by mouth twice daily with meals. - lisinopril (ZESTRIL) 40 mg tablet Take 1 tablet by mouth daily at bedtime. - amLODIPine (NORVASC) 10 mg tablet Take 1 tablet by mouth once daily. - atorvastatin (LIPITOR) 40 mg tablet Take 1 tablet by mouth once daily. - ketoconazole (NIZORAL) 2 % cream Apply 1 application to affected area once daily. - aspirin, enteric coated (ASPIRIN, ENTERIC COATED) 81 mg EC tablet Take 81 mg by mouth once daily. - CPAP/BIPAP/OTHER Type .CPAPSettings into a note to see current settings/supplies/DME information. - ONETOUCH ULTRA2 METER - blood sugar diagnostic (BLOOD GLUCOSE TEST) test strip Test blood sugar(s) 2 times daily. Dx: Type 2 DM - Uncontrolled E11.65 Insulin: No DX: E11.9 - Lancets lancets Test blood sugar(s) 2 times daily. Dx: Type 2 DM - Uncontrolled E11.65 Insulin: No DX:E11.9 - acetaminophen (TYLENOL) 325 mg tablet Take 2 tablets by mouth every 4 hours as needed for pain. - Ascorbic Acid 1,000 mg tablet Take 1,000 mg by mouth once daily. PRN - cholecalciferol, vitamin D3, (VITAMIN D3 ORAL) Take by mouth. 2000 international unit(s) daily - vitamin B complex (B COMPLEX ORAL) Take 1 tablet by mouth once daily. Meds Comments as of 05/18/2021: 12/03/19 The medications are managed by this patient by: PATIENT Diyaeboni Quezadaveronica, COA 05/18/21 SOC no severe interactions noted Problem List As Of Date 03/08/2024 Noted Resolved Hypertension, essential [I10] 02/13/2006 Anxiety [F41.9] 03/22/2006 Hypertensive emergency [I16.1] 11/12/2019 11/15/2019 Obesity, Class III, BMI >= 40 [E66.01] 11/12/2019 11/28/2019 CVA (cerebral vascular accident) (HCC) [I63.9] 11/12/2019 Diabetes mellitus type 2, controlled, without c*11/14/2019 Hyperlipidemia [E78.5] 11/14/2019 Ataxia due to acute cerebrovascular disease [I6*11/25/2019 Obesity, Class II, BMI 35-39.9 [E66.812] 11/28/2019 Intracranial aneurysm [I67.1] 12/18/2019 Obesity, Class III, BMI >= 40 [E66.01] 01/07/2020 07/14/2020 FABIOLA (obstructive sleep apnea) [G47.33] GERD (gastroesophageal reflux disease) [K21.9] Irritable bowel syndrome with diarrhea [K58.0] Back pain [M54.9] Seborrheic dermatitis [L21.9] 07/20/2020 Lacunar stroke (HCC) [I63.81] 10/22/2020 Hyperlipidemia associated with type 2 diabetes *10/22/2020 Hx of craniotomy [Z98.890] 12/28/2020 Imbalance [R26.89] 12/31/2020 Wound dehiscence [T81.30XA] 05/11/2021 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 FALL SCREENING: Has the patient had 2 falls in the last year or 1 fall with injury or currently using an Ambulatory Assistive Device (Walker, Cane, Wheelchair, Crutches, etc.)? No PATIENT GENDER DATA: Female. status: : No status: NO. PATIENT RELEVANT IMPLANT DATA REVIEWED: Not Applicable PATIENT PRESENTS WITH AN IMPLANTABLE OR ATTACHED GEOLOGICAL SURVEY FIELD ASSISTANT: No RADIOLOGY DEPARTMENT: Mammography PERIPHERAL IV DATA: Not applicable SIGNED BY: Sen Jang February 07, 2024 11:03 AM documented [facility]-2024 NoteHNO ID: [id number] Author: EN BRODERICK Mammo Tech Service: ? Author Type: Technologist Type: Progress Notes Filed: 02/07/2024 11:03 Note Text: Radiology Service Progress Note PATIENT NAME: Merle Bradley DATE OF SERVICE: February 07, 2024 TIME: 11:03 AM PATIENT IDENTITY VERIFICATION COMPLETED USING TWO (2) IDENTIFIERS: Name and Date of confirmed by patient verbally. FALL SCREENING: Has the patient had 2 falls in the last year or 1 fall with injury or currently using an Ambulatory Assistive Device (Walker, Cane, Wheelchair, Crutches, etc.)? No PATIENT GENDER DATA: Female. status: : No status: NO. PATIENT RELEVANT IMPLANT DATA REVIEWED: Not Applicable PATIENT PRESENTS WITH AN IMPLANTABLE OR ATTACHED GEOLOGICAL SURVEY FIELD ASSISTANT: No RADIOLOGY DEPARTMENT: Mammography PERIPHERAL IV DATA: Not applicable SIGNED BY: Sen Jang February 07, 2024 11:03 [facility]11-22-2024 Telephone encounter Note* Telephone Encounter - Sharon Logan MA - 02/02/2024 8:38 AM EST Prescription Refill Information The patient has been identified by name and date of : Yes Caregiver verified no other encounters exist for this prescription request: Yes Caregiver confirmed with patient/requestor that no other refills are due, in the near future, with this provider at this time: Yes The last office visit in the department: 01/05/24 Does the patient have a future office visit with this provider/department: No Requested Prescriptions Pending Prescriptions Disp Refills nystatin (MYCOSTATIN) cream 30 g 0 Sig: Apply to affected area two times a day. Sharon Logan MA February 02, 2024 8:38 AM [facility]11-22-2024 Miscellaneous Notes* Telephone Encounter - Sharon Logan MA - 02/02/2024 8:38 AM EST Prescription Refill Information The patient has been identified by name and date of : Yes Caregiver verified no other encounters exist for this prescription request: Yes Caregiver confirmed with patient/requestor that no other refills are due, in the near future, with this provider at this time: Yes The last office visit in the department: 01/05/24 Does the patient have a future office visit with this provider/department: No Requested Prescriptions Pending Prescriptions Disp Refills nystatin (MYCOSTATIN) cream 30 g 0 Sig: Apply to affected area two times a day. Sharon Logan MA February 02, 2024 8:38 AM documented in [facility] encounterMer[facility]11-11-2024 Telephone encounter Note * Telephone Encounter - Mirian Iraheta LPN - 01/22/2024 8:26 AM EST Please review and advise. [facility]11-11-[facility]24 Miscellaneous Notes* Telephone Encounter - Mirian Iraheta LPN - 01/22/2024 8:26 AM EST Please review and advise. documented in [facility]Mer[facility]10-30-[facility]24 Telephone encounter Note * Telephone Encounter - Javon Zimmerman MA - 01/10/2024 3:58 PM EDT Patient aware [facility]10-30-2024 Miscellaneous Notes* Telephone Encounter - Javon Zimmerman MA - 01/10/2024 3:58 PM EDT Patient aware * Telephone Encounter - Yessenia Rodriguez MD - 01/10/2024 10:34 AM EDT Rx sent for advair instead * Telephone Encounter - Mirian Iraheta LPN - 01/08/2024 5:50 PM EDT Symbicort denied by insurance. Perferred drugs are Advair HFA, Breo Ellipta, Spirica and Wixela. Pleas advise. Mirian Iraheta LPN documented in this encounterMer[facility]10-30-2024 Telephone encounter Note * Telephone Encounter - Yessenia Rodriguez MD - 01/10/2024 10:34 AM EDT Rx sent for advair instead [facility]-28-[facility] Telephone encounter Note* Telephone Encounter - Mirian Iraheta LPN - 01/08/2024 5:50 PM EDT Symbicort denied by insurance. Perferred drugs are Advair HFA, Breo Ellipta, Spirica and Wixela. Pleas advise. Mirian Iraheta LPN [facility]10-28-2024 NoteHNO ID: [id number] Author: TRANG GIBBS MA Service: ? Author Type: Edge Beader Type: Progress Notes Filed: 01/08/2024 11:42 Note Text: POPULATION HEALTH NAVIGATION OUTREACH Action/I msg to schedule wellness due around 08/2024, mammogram, diabetic retinal eye exam, hgba1c- order is in and I sent a scheduling ticket via C[employer] Reason for Outreach Care Gap/HCC or Scheduling Wellness Visits Care Gaps due: Medicare Annual Wellness Visit Breast Cancer Screening Diabetic Eye Exam HBA1C Patient Contacted: Unable or unnecessary to reach patient: Unable to leave message Equ[employer]ois message sent Navigation Signature: Trang Gibbs MA January 08, 2024 11:41 [facility]10-28-2024 History of Present illness Narrative* Trang Gibbs MA - 01/08/2024 11:41 AM EDT POPULATION HEALTH NAVIGATION OUTREACH Action/FYI msg to schedule wellness due around 08/2024, mammogram, diabetic retinal eye exam, hgba1c- order is in and I sent a scheduling ticket via [employer] Reason for Outreach Care Gap/HCC or Scheduling Wellness Visits Care Gaps due: Medicare Annual Wellness Visit Breast Cancer Screening Diabetic Eye Exam HBA1C Patient Contacted: Unable or unnecessary to reach patient: Unable to leave message Equipois message sent Navigation Signature: Trang Gibbs MA January 08, 2024 11:41 AM documented in this encounterMer[facility]10-28-2024 NotePatient Outreach (NETNAV) MERLE BRADLEY ([id number]) 1960 F Date Time Provider Department 01/08/24 TRANG GIBBS During your visit today, we recorded the following information about you: Trang Gibbs MA 01/08/2024 11:42 AM Signed POPULATION HEALTH NAVIGATION OUTREACH Action/FYI msg to schedule wellness due around 08/2024, mammogram, diabetic retinal eye exam, hgba1c- order is in and I sent a scheduling ticket via [employer] Reason for Outreach Care Gap/HCC or Scheduling Wellness Visits Care Gaps due: Medicare Annual Wellness Visit Breast Cancer Screening Diabetic Eye Exam HBA1C Patient Contacted: Unable or unnecessary to reach patient: Unable to leave message Equ[employer]ois message sent Navigation Signature: Trang Gibbs MA January 08, 2024 11:41 AM Allergies As of Date: 01/08/2024 Noted Allergy Reaction POLLEN EXTRACTS 06/15/2022 14 - Other: See Comments Comments: Sneezing, itchy eyes Date Reviewed: 01/05/2024 Reviewed by: Mirian Iraheta LPN - Fully Assessed Reason for Visit: Population Health Navigation Outreach [3910] Cmt: Maria A workbench briones Prescriptions as of 01/08/2024 - pantoprazole DR (PROTONIX) 40 mg tablet Take 1 tablet by mouth once daily. 30 minutes before eating. - budesonide-formoterol (SYMBICORT) 160-4.5 mcg/actuation inhaler Inhale 2 Puffs as instructed two times a day. - albuterol HFA (PROVENTIL HFA, VENTOLIN HFA) 90 mcg/actuation inhaler Inhale 2 Puffs as instructed every 4 hours as needed for wheezing/shortness of breath. - ondansetron (ZOFRAN) 4 mg tablet Take 1 tablet by mouth every 8 hours as needed for nausea/vomiting. - nystatin (MYCOSTATIN) cream Apply to affected area two times a day. - hydrALAZINE (APRESOLINE) 50 mg tablet Take 1 tablet by mouth three times daily. - metFORMIN (GLUCOPHAGE) 500 mg tablet Take 1 tablet by mouth twice daily with meals. - carvedilol (COREG) 6.25 mg tablet Take 1 tablet by mouth twice daily with meals. - lisinopril (ZESTRIL) 40 mg tablet Take 1 tablet by mouth daily at bedtime. - amLODIPine (NORVASC) 10 mg tablet Take 1 tablet by mouth once daily. - atorvastatin (LIPITOR) 40 mg tablet Take 1 tablet by mouth once daily. - ketoconazole (NIZORAL) 2 % cream Apply 1 application to affected area once daily. - aspirin, enteric coated (ASPIRIN, ENTERIC COATED) 81 mg EC tablet Take 81 mg by mouth once daily. - CPAP/BIPAP/OTHER Type .CPAPSettings into a note to see current settings/supplies/DME information. - [place] InnoVenturesTOUCH ULTRA2 METER - blood sugar diagnostic (BLOOD GLUCOSE TEST) test strip Test blood sugar(s) 2 times daily. Dx: Type 2 DM - Uncontrolled E11.65 Insulin: No DX: E11.9 - Lancets lancets Test blood sugar(s) 2 times daily. Dx: Type 2 DM - Uncontrolled E11.65 Insulin: No DX:E11.9 - acetaminophen (TYLENOL) 325 mg tablet Take 2 tablets by mouth every 4 hours as needed for pain. - Ascorbic Acid 1,000 mg tablet Take 1,000 mg by mouth once daily. PRN - cholecalciferol, vitamin D3, (VITAMIN D3 ORAL) Take by mouth. 2000 international unit(s) daily - vitamin B complex (B COMPLEX ORAL) Take 1 tablet by mouth once daily. 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 disease [I6*11/25/2019 Obesity, Class II, BMI 35-39.9 [E66.812] 11/28/2019 Intracranial aneurysm [I67.1] 12/18/2019 Obesity, Class III, BMI >= 40 [E66.01] 01/07/2020 07/14/2020 FABIOLA (obstructive sleep apnea) [G47.33] GERD (gastroesophageal reflux disease) [K21.9] Irritable bowel syndrome with diarrhea [K58.0] Back pain [M54.9] Seborrheic dermatitis [L21.9] 07/20/2020 Lacunar stroke (HCC) [I63.81] 10/22/2020 Hyperlipidemia associated with type 2 diabetes *10/22/2020 Hx of craniotomy [Z98.890] 12/28/2020 Imbalance [R26.89] 12/31/2020 Wound dehiscence [T81.30XA] 05/11/2021 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 Author Type: Physician Type: Progress Notes Filed: 01/10/2024 10:33 Note Text: Patient presents with: 6 Month Exam: Rash still, and was in the ER 12/16/23 HPI: Merle Bradley is a 63 year old female who presents to the office today for follow up. Had severe acid reflux, nausea, burning pain that started on 12/13, started vomiting after a night of drinking beer for her birthday, then went to the ER on 12/15 - given zofran, sucralfate, pantoprazole, potassium supplement - doing better now - has had bad gerd in the past, would throw up in her mouth at night, fam hx of barretts - no dysphagia, no prior EGD DM On metformin Overdue for eye exam HTN - lisinopril, hydralazine, carvedilol, amlodipine Rash on her chest and between breasts x couple months Itchy I she takes a bath Has been using nystatin, ketoconazole, and topical steroid. Uses ketoconazole under the breasts and in her bellybutton which helps Former smoker, quit 20+ years ago Was getting sob with stairs since stroke in 2019, used her friends albuterol which helps. Left aneurysm s/p craniotomy with delayed wound healing, still has open wound on right side of scalp. Supposed to see plastics, but difficulty with scheduling due to her location. Last seen by plastics in 11/2022 REVIEW OF SYSTEMS: CONSTITUTIONAL: No fevers, chills, nightsweats, unintended weight loss HEENT: Denies frequent or severe heaches, nasal congestion/sinus symptoms, problematic allergy problems. EYES: No diplopia or blurry vision. CARDIOVASCULAR: No chest pain, dyspnea, palpitations, orthopnea, PND, ankle edema. PULM: No dyspnea, unexplained cough. GI: No dysphagia/odynophagia, problematic reflux, constipation, diarrhea, changes in stool habits, hematochezia, melena. : No new urinary complaints, including dysuria, gross hematuria or pyuria. NEURO: No new balance problems, peripheral weakness/paresthesias or numbness of concern. MUSC-SKEL: No new joint pain, swelling, or erythema. PSY: No concerns regarding depression, anxiety or panic. INTEGUMENTARY: No new skin changes (rash, new or changing mole, new growth) PAST MEDICAL HISTORY Diagnosis Date Diabetes mellitus (HCC) 11/2019 GERD (gastroesophageal reflux disease) Hypertension Irritable bowel syndrome with diarrhea Lacunar stroke (HCC) 11/2019 FABIOLA (obstructive sleep apnea) PAST SURGICAL HISTORY Procedure Laterality Date APPENDECTOMY SECTION HX COLONOSCOPY 02/16/2022 repeat in 10 years LIG/TRNSXJ FLP TUBE ABDL/VAG APPR UNI/BI PICC LINE INSERT/CONSULT 05/15/2021 PILONIDAL CYST/SINUS EXCISION 1985 TONSILLECTOMY PRIMARY/SECONDARY FAMILY HISTORY Problem Relation Age of Onset No Ocular Disease Mother Alcohol abuse Mother Cataract Father Hypertension Father Social History Tobacco Use Smoking status: Former Current packs/day: 0.00 Average packs/day: 0.3 packs/day for 21.9 years (6.6 ttl pk-yrs) Types: Cigarettes Start date: 07/14/1978 Quit date: 05/21/2000 Years since quittin.6 Smokeless tobacco: Never Vaping Use Vaping status: Some Days Substances: CBD Substance Use Topics Alcohol use: Not Currently Drug use: Not Currently Types: Marijuana Comment: medical marijuana ACTIVE PROBLEM LIST Hypertension, Essential Anxiety Cva (Cerebral Vascular Accident) (Hcc) Diabetes Mellitus Type 2, Controlled, Without Complications ([facility]) Hyperlipidemia Ataxia Due to Acute Cerebrovascular Disease Obesity, Class II, Bmi 35-39.9 Intracranial Aneurysm Fabiola (Obstructive Sleep Apnea) Gerd (Gastroesophageal Reflux Disease) Irritable Bowel Syndrome With Diarrhea Back Pain Seborrheic Dermatitis Lacunar Stroke (Hcc) Hyperlipidemia Associated With Type 2 Diabetes Mellitus (Hcc) (Hcc) Hx of Craniotomy Imbalance Wound Dehiscence Subaortic Membrane Skin Ulcer of Scalp, Limited to Breakdown of Skin (Hcc) ALLERGIES Allergen Reactions Pollen Extracts Other: See Comments Sneezing, itchy eyes MEDICATIONS: ondansetron (ZOFRAN) 4 mg tablet Take 1 tablet by mouth every 8 hours as needed for nausea/vomiting. nystatin (MYCOSTATIN) cream Apply to affected area two times a day. hydrALAZINE (APRESOLINE) 50 mg tablet Take 1 tablet by mouth three times daily. metFORMIN (GLUCOPHAGE) 500 mg tablet Take 1 tablet by mouth twice daily with meals. carvedilol (COREG) 6.25 mg tablet Take 1 tablet by mouth twice daily with meals. lisinopril (ZESTRIL) 40 mg tablet Take 1 tablet by mouth daily at bedtime. amLODIPine (NORVASC) 10 mg tablet Take 1 tablet by mouth once daily. atorvastatin (LIPITOR) 40 mg tablet Take 1 tablet by mouth once daily. ketoconazole (NIZORAL) 2 % cream Apply 1 application to affected area once daily. aspirin, enteric coated (ASPIRIN, ENTERIC COATED) 81 mg EC tablet Take 81 mg by mouth once daily. CPAP/BIPAP/OTHER Type .CPAPSettings into a not (more content not included)... [facility] History of Present illness Narrative* Yessenia Rodriguez MD - 01/05/2024 4:01 PM EDT Patient presents with: 6 Month Exam: Rash still, and was in the ER 12/16/23 HPI: Merle Bradley is a 63 year old female who presents to the office today for follow up. Had severe acid reflux, nausea, burning pain that started on 12/13, started vomiting after a night of drinking beer for her birthday, then went to the ER on 12/15 - given zofran, sucralfate, pantoprazole, potassium supplement - doing better now - has had bad gerd in the past, would throw up in her mouth at night, fam hx of barretts - no dysphagia, no prior EGD DM On metformin Overdue for eye exam HTN - lisinopril, hydralazine, carvedilol, amlodipine Rash on her chest and between breasts x couple months Itchy I she takes a bath Has been using nystatin, ketoconazole, and topical steroid. Uses ketoconazole under the breasts and in her bellybutton which helps Former smoker, quit 20+ years ago Was getting sob with stairs since stroke in 2019, used her friends albuterol which helps. Left aneurysm s/p craniotomy with delayed wound healing, still has open wound on right side of scalp. Supposed to see plastics, but difficulty with scheduling due to her location. Last seen by plastics in 11/2022 REVIEW OF SYSTEMS: CONSTITUTIONAL: No fevers, chills, nightsweats, unintended weight loss HEENT: Denies frequent or severe heaches, nasal congestion/sinus symptoms, problematic allergy problems. EYES: No diplopia or blurry vision. CARDIOVASCULAR: No chest pain, dyspnea, palpitations, orthopnea, PND, ankle edema. PULM: No dyspnea, unexplained cough. GI: No dysphagia/odynophagia, problematic reflux, constipation, diarrhea, changes in stool habits, hematochezia, melena. : No new urinary complaints, including dysuria, gross hematuria or pyuria. NEURO: No new balance problems, peripheral weakness/paresthesias or numbness of concern. MUSC-SKEL: No new joint pain, swelling, or erythema. PSY: No concerns regarding depression, anxiety or panic. INTEGUMENTARY: No new skin changes (rash, new or changing mole, new growth) PAST MEDICAL HISTORY Diagnosis Date Diabetes mellitus (HCC) 11/2019 GERD (gastroesophageal reflux disease) Hypertension Irritable bowel syndrome with diarrhea Lacunar stroke (HCC) 11/2019 FABIOLA (obstructive sleep apnea) PAST SURGICAL HISTORY Procedure Laterality Date APPENDECTOMY SECTION HX COLONOSCOPY 02/16/2022 repeat in 10 years LIG/TRNSXJ FLP TUBE ABDL/VAG APPR UNI/BI PICC LINE INSERT/CONSULT 05/15/2021 PILONIDAL CYST/SINUS EXCISION 1985 TONSILLECTOMY PRIMARY/SECONDARY <AGE 12 FAMILY HISTORY Problem Relation Age of Onset No Ocular Disease Mother Alcohol abuse Mother Cataract Father Hypertension Father Social History Tobacco Use Smoking status: Former Current packs/day: 0.00 Average packs/day: 0.3 packs/day for 21.9 years (6.6 ttl pk-yrs) Types: Cigarettes Start date: 07/14/1978 Quit date: 05/21/2000 Years since quittin.6 Smokeless tobacco: Never Vaping Use Vaping status: Some Days Substances: CBD Substance Use Topics Alcohol use: Not Currently Drug use: Not Currently Types: Marijuana Comment: medical marijuana ACTIVE PROBLEM LIST Hypertension, Essential Anxiety Cva (Cerebral Vascular Accident) ([facility]) Diabetes Mellitus Type 2, Controlled, Without Complications ([facility]) Hyperlipidemia Ataxia Due to Acute Cerebrovascular Disease Obesity, Class II, Bmi 35-39.9 Intracranial Aneurysm Fabiola (Obstructive Sleep Apnea) Gerd (Gastroesophageal Reflux Disease) Irritable Bowel Syndrome With Diarrhea Back Pain Seborrheic Dermatitis Lacunar Stroke (Hcc) Hyperlipidemia Associated With Type 2 Diabetes Mellitus (Hcc) (Hcc) Hx of Craniotomy Imbalance Wound Dehiscence Subaortic Membrane Skin Ulcer of Scalp, Limited to Breakdown of Skin (Hcc) ALLERGIES Allergen Reactions Pollen Extracts Other: See Comments Sneezing, itchy eyes MEDICATIONS: ondansetron (ZOFRAN) 4 mg tablet Take 1 tablet by mouth every 8 hours as needed for nausea/vomiting. nystatin (MYCOSTATIN) cream Apply to affected area two times a day. hydrALAZINE (APRESOLINE) 50 mg tablet Take 1 tablet by mouth three times daily. metFORMIN (GLUCOPHAGE) 500 mg tablet Take 1 tablet by mouth twice daily with meals. carvedilol (COREG) 6.25 mg tablet Take 1 tablet by mouth twice daily with meals. lisinopril (ZESTRIL) 40 mg tablet Take 1 tablet by mouth daily at bedtime. amLODIPine (NORVASC) 10 mg tablet Take 1 tablet by mouth once daily. atorvastatin (LIPITOR) 40 mg tablet Take 1 tablet by mouth once daily. ketoconazole (NIZORAL) 2 % cream Apply 1 application to affected area once daily. aspirin, enteric coated (ASPIRIN, ENTERIC COATED) 81 mg EC tablet Take 81 mg by mouth once daily. CPAP/BIPAP/OTHER Type .CPAPSettings into a note to see current settings/supplies/DME information. ONETOUCH ULTRA2 METER blood sugar diagnostic (BLOOD GLUCOSE TEST) test strip Test blood sugar(s) 2 times daily. Dx: Type 2 DM - Uncontrolled E11.65 Insulin: No DX: E11.9 Lancets lancets Test blood sugar(s) 2 times daily. Dx: Type 2 DM - Uncontrolled E11.65 Insulin: No DX:E11.9 Ascorbic Acid 1,000 mg tablet Take 1,000 mg by mouth once daily. PRN cholecalciferol, vitamin D3, (VITAMIN D3 ORAL) Take by mouth. 2000 international unit(s) daily vitamin B complex (B COMPLEX ORAL) Take 1 tablet by mouth once daily. pantoprazole DR (PROTONIX) 40 mg tablet Take 1 tablet by mouth once daily. 30 minutes before eating. budesonide-formoterol (SYMBICORT) 160-4.5 mcg/actuation inhaler Inhale 2 Puffs as instructed two times a day. albuterol HFA (PROVENTIL HFA, VENTOLIN HFA) 90 mcg/actuation inhaler Inhale 2 Puffs as instructed every 4 hours as needed for wheezing/shortness of breath. acetaminophen (TYLENOL) 325 mg tablet Take 2 tablets by mouth every 4 hours as needed for pain. (Patient not taking: Reported on 01/05/2024) EXAM:BP 102/60 Pulse 63 Temp 37.1 C (98.7 F) (Temporal) Ht 163.2 cm (5' 4.25) Wt 87.9 kg (193 lb 12.6 oz) LMP 05/11/2009 SpO2 94% BMI 33.00 kg/m Last Wt 01/05/24 : 87.9 kg (193 lb 12.6 oz) 12/04/23 : 90.7 kg (199 lb 15 oz) 07/11/23 : 96.8 kg (213 lb 6.5 oz) 11/15/22 : 101.6 kg (224 lb) PHYSICAL EXAM: General Appearance: Well appearing, alert, in no acute distress, well-hydrated, well nourished.. Skin: Skin color, texture, turgor normal Chest with erythematous papules along anterior chest and between breasts. Scalp with oozy pinpoint opening over the right frontal area. Lungs: Lungs with diffuse wheezing Heart: RRR without murmur, gallop, or rubs. No ectopy. Neurologic: Gait normal. ASSESSMENT/PLAN: 1. Rash - ICD9: 782.1, ICD10: R21 (primary diagnosis) - CONSULT TO DERMATOLOGY 2. Hx of craniotomy - ICD9: V45.89, ICD10: Z98.890 - CONSULT TO PLASTIC SURGERY 3. Skin ulcer of scalp, limited to breakdown of skin (HCC) - ICD9: 707.8, ICD10: L98.491 - CONSULT TO PLASTIC SURGERY 4. Wound dehiscence - ICD9: 998.30, ICD10: T81.30XA - CONSULT TO PLASTIC SURGERY 5. Encounter for immunization - ICD9: V03.89, ICD10: Z23 - INFLUENZA VACCINE, AGE 6MO-64YR, TRIVALENT (AFLURIA, FLULAVAL, FLUVIRIN, FLUZONE) - [facility] COVID-19 VACCINE AGE 12+ YR (COMIRNATY) 6. Controlled type 2 diabetes mellitus without complication, without long-term current use of insulin (HCC) - ICD9: 250.00, ICD10: E11.9 - Controlled - Continue current medications - HEMOGLOBIN A1C - COMPLETE BLOOD COUNT - COMPREHENSIVE METABOLIC PANEL - LIPID PANEL BASIC 7. Gastroesophageal reflux disease without esophagitis - ICD9: 530.81, ICD10: K21.9 - PANTOPRAZOLE 40 MG TABLET,DELAYED RELEASE 8. Bronchospasm - ICD9: 519.11, ICD10: J98.01 - start BUDESONIDE-FORMOTEROL HFA 160 MCG-4.5 MCG/ACTUATION AEROSOL INHALER - ALBUTEROL SULFATE HFA 90 MCG/ACTUATION AEROSOL INHALER Yessenia Rodriguez documented in this encounterCleveland [id number] Instructions* Patient Instructions* Mirian Iraheta LPN - 01/05/2024 3:49 PM EDT [facility] BUILDING LAB TEST INFORMATION [facility] LAB HOURS: Lab is open: 7:30am to 5:00pm M - Th, 7:30am to 4:00pm onFri and 8am -12pm on Sat. The lab is located in [facility] on the first floor. There is a registration window at the lab, available 7 am to 3 pm Monday - Monday. If registration is unavailable at the lab, you may register at the patient registration office near the front lobby of the hospital. SCHEDULING A LAB APPOINTMENT: Laboratory appointments are recommended.Walk ins are still accepted. Call [phone] or schedule via [employer] scheduling ticket. ROUTINE LAB ORDERS 60 days after they are entered. If your lab orders , you may be required to wait in the lab while they are reinstated FUTURE ORDERS are lab tests to be completed on the EXPECTED date. These orders 60 days afterthe expected date. STANDING ORDERS are recurring orders with an expiration date. The interval will indicate how often the test should be completed. CT / MRI / IVP If you have lab tests ordered for one of these radiology exams, please complete the blood work at least one day prior to the scheduled exam. PRESCRIPTION REFILL REQUESTS Request prescription refills through your Equ[employer] account or contact your Pharmacy. My Chart Schedule My Appointment enables you to view your established primary care provider's open schedule and book an appointment online in real-time. This feature is available in internal medicine, family medicine, or pediatrics at any of our [facility] locations and main campus. documented in this encounterMer[facility]10-07-[facility]24 Telephone encounter Note * Telephone Encounter - Javon Zimmerman MA - 12/18/2023 7:59 AM EDT Please review and advise [facility]10-07-2024 Miscellaneous Notes* Telephone Encounter - Javon Zimmerman MA - 12/18/2023 7:59 AM EDT Please review and advise documented in this encounterMercy [facility]09-23-2024 History of Present illness Narrative* Javon Zimmerman MA - 12/04/2023 9:08 AM EDT Hepatitis C Screening Never done HIV Screening Never done Dilated Retinal Exam due on 12/02/2020 Mammogram Screening due on 12/24/2020 Diabetic Foot Exam due on 10/26/2023 Covid-19 Vaccine( season) due on 11/12/2023 Influenza Vaccine(1) due on 11/12/2023 * Luz Marina Mcmahan PA-C - 12/04/2023 9:07 AM EDT Merle Bradley is a 62 year old female with a complaint of rash x one month. On chest, more in between breasts. Itchy, coppola at times. Tried hydrocortisone and ketoconazole cream without relief. REVIEW OF SYSTEMS See HPI, otherwise unremarkable. PAST MEDICAL HISTORY Diagnosis Date Diabetes mellitus (HCC) 11/2019 GERD (gastroesophageal reflux disease) Hypertension Irritable bowel syndrome with diarrhea Lacunar stroke (HCC) 11/2019 FABIOLA (obstructive sleep apnea) PAST SURGICAL HISTORY Procedure Laterality Date APPENDECTOMY SECTION HX COLONOSCOPY 02/16/2022 repeat in 10 years LIG/TRNSXJ FLP TUBE ABDL/VAG APPR UNI/BI PICC LINE INSERT/CONSULT 05/15/2021 PILONIDAL CYST/SINUS EXCISION 1985 TONSILLECTOMY PRIMARY/SECONDARY <AGE 12 FAMILY HISTORY Problem Relation Age of Onset No Ocular Disease Mother Alcohol abuse Mother Cataract Father Hypertension Father Social History Tobacco Use Smoking status: Former Current packs/day: 0.00 Average packs/day: 0.3 packs/day for 21.9 years (6.6 ttl pk-yrs) Types: Cigarettes Start date: 07/14/1978 Quit date: 05/21/2000 Years since quittin.5 Smokeless tobacco: Never Vaping Use Vaping status: Some Days Substances: CBD Substance Use Topics Alcohol use: Not Currently Drug use: Not Currently Types: Marijuana Comment: medical marijuana PHYSICAL EXAMINATION: Vitals: BP 93/63 Pulse 65 Temp 36.3 C (97.4 F) Ht 163.2 cm (5' 4.25) Wt 90.7 kg (199 lb 15oz) LMP 05/11/2009 SpO2 98% BMI 34.05 kg/m General Appearance: Well appearing, alert, in no acute distress Skin: erythematous papular rash on chest, concentrated between breasts. ASSESSMENT: DIAGNOSIS: (R21) Skin rash (primary encounter diagnosis) PLAN: Suspect fungal, try nystatin. Follow up if not improving. Pt in agreement with the plan and verbalized understanding. Luz Marina Mcmahan PA-C documented in this encounterMercy [facility]09-16-2024 Telephone encounter Note * Telephone Encounter - Chelsea Gonzalez RN - 11/27/2023 10:48 AM EDT Images from the original note were not included. Patient returned call and LVM on nurse line. Called and spoke with patient Rash has been present for about a month Across upper chest and between breast Rash is red, raised and dry Is itchy and sensitive Similar size, does cluster in some spots. About half the size of an eraser Clothing does bother it; rates it a 5 out of 10 Denies fevers or changes in environmental factors Scheduled OV for next week. Discussed us of hydrocortisone cream, along with ice cubes when really itchy. MC: My cream I have isn't working for this particular rashes. It does itch too. Thank you! Merle Ann [id number].jpg Reason for Disposition Localized rash present > 7 days Protocols used: Rash or Redness - [id number] [facility]09-16-2024 Miscellaneous Notes* Telephone Encounter - Chelsea Gonzalez RN - 11/27/2023 10:48 AM EDT Images from the original note were not included. Patient returned call and LVM on nurse line. Called and spoke with patient Rash has been present for about a month Across upper chest and between breast Rash is red, raised and dry Is itchy and sensitive Similar size, does cluster in some spots. About half the size of an eraser Clothing does bother it; rates it a 5 out of 10 Denies fevers or changes in environmental factors Scheduled OV for next week. Discussed us of hydrocortisone cream, along with ice cubes when really itchy. MC: My cream I have isn't working for this particular rashes. It does itch too. Thank you! Merle Kennedykb Ann [id number].jpg Reason for Disposition Localized rash present > 7 days Protocols used: Rash or Redness - [id number] * Telephone Encounter - Kourtney Araujo RN - 11/27/2023 8:50 AM EDT Pt sent MC with picture regarding rash, called to triage, no answer, unable to leave VM - not set up documented in this encounterMercy [facility]09-16-2024 Telephone encounter Note * Telephone Encounter - Kourtney Araujo RN - 11/27/2023 8:50 AM EDT Pt sent MC with picture regarding rash, called to triage, no answer, unable to leave VM - not set up [facility]08-19-2024 Telephone encounter Note* Telephone Encounter - Mirian Iraheta LPN - 10/30/2023 2:00 PM EDT Order mailed. [facility]08-19-[facility] Miscellaneous Notes* Telephone Encounter - Mirian Iraheta LPN - 10/30/2023 2:00 PM EDT Order mailed. * Telephone Encounter - Luz Marina Mcmahan PA-C - 10/30/2023 1:19 PM EDT Printed placard. Please process. Luz Marina Domingo PA-C documented in this encounterMercy Health [facility]08-19-2024 Telephone encounter Note * Telephone Encounter - Luz Marina Mcmahan PA-C - 10/30/2023 1:19 PM EDT Printed placard. Please process. Luz Marina Domingo PA-C [facility]06-17-2024 Telephone encounter Note* Telephone Encounter - Neyda Napoles - 08/28/2023 11:59 AM EDT [facility] received your order for replacement CPAP supplies. Insurance requires documentation that the patient has a continued need to use a PAP device. Please update your 07/11/23 visit notes to reflect this information, once completed we will continue to process the referral. Thank you, #1 [facility]06-17-[facility] Miscellaneous Notes* Telephone Encounter - Neyda Napoles - 08/28/2023 11:59 AM EDT [facility] has received your order for replacement CPAP supplies. Insurance requires documentation that the patient has a continued need to use a PAP device. Please update your 07/11/23 visit notes to reflect this information, once completed we will continue to process the referral. Thank you, #1 documented in this encounterMercy [facility]04-30-2024 History of Present illness Narrative* Yessenia Rodriguez MD - 07/11/2023 3:28 PM EDT Patient presents with: 6 Month Exam HPI: Merle Bradley is a 62 year old female who presents to the office today for follow up. DM Hemoglobin A1C (%) Date Value 07/10/2023 5.6 04/05/2022 6.1 07/14/2020 6.8 11/12/2019 8.4 Hemoglobin A1C (POCT) (%) Date Value 10/25/2022 6.0 10/22/2020 5.9 Moved into an apartment in [place], [facility] [place] [facility], eating organic meat Weight down 11 lbs. Chronic back pain, upper lumbar region - x couple years, worse recently Radiates down right leg No tingling, a little numb with prolonged standing, feels better with leaning forward slightly Hyperlipidemia - tolerating lipitor Cholesterol, Total (mg/dL) Date Value 07/10/2023 107 04/05/2022 116 10/22/2020 88 07/27/2009 137 Total Cholesterol, Nonfasting (mg/dL) Date Value 11/12/2019 160 HDL Cholesterol (mg/dL) Date Value 07/10/2023 42 04/05/2022 50 10/22/2020 34 07/27/2009 24 HDL Cholesterol, Nonfasting (mg/dL) Date Value 11/12/2019 34 LDL Cholesterol (mg/dL) Date Value 07/10/2023 47 04/05/2022 38 10/22/2020 33 07/27/2009 41 LDL Cholesterol, Nonfasting (mg/dL) Date Value 11/12/2019 76 Triglyceride (mg/dL) Date Value 07/10/2023 88 04/05/2022 140 10/22/2020 105 07/27/2009 360 Triglycerides, Nonfasting (mg/dL) Date Value 11/12/2019 252 Anxiety - stopped citalopram - doing well for the most part, always a worrier but feels good. HTN Amlodipine, carvedilol, hydralazine, lisinopril FABIOLA - needs to get new supplies, feels better when she uses it. Sleeps better, more rested. Hx of brain aneurysm, s/p clipping with craniotomy in 2020, had delayed healing with infection, neurosurgery referred to wound clinic, plastic surgery. Needs to follow up with plastics. Hx of stroke in 2019 - uses a cane to help with balance. 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 EYES: No diplopia or blurry vision. CARDIOVASCULAR: No chest pain, dyspnea, palpitations, orthopnea, PND, ankle edema. PULM: No dyspnea, unexplained cough. GI: No dysphagia/odynophagia, problematic reflux, constipation, diarrhea, changes in stool habits, hematochezia, melena. : No new urinary complaints, including dysuria, gross hematuria or pyuria. NEURO: No new balance problems, peripheral weakness/paresthesias or numbness of concern. MUSC-SKEL: No new joint pain, swelling, or erythema. PSY: No concerns regarding depression, anxiety or panic. INTEGUMENTARY: No new skin changes (rash, new or changing mole, new growth) PAST MEDICAL HISTORY Diagnosis Date Diabetes mellitus ([facility]) 11/2019 GERD (gastroesophageal reflux disease) Hypertension Irritable bowel syndrome with diarrhea Lacunar stroke ([facility]) 11/2019 FABIOLA (obstructive sleep apnea) PAST SURGICAL HISTORY Procedure Laterality Date APPENDECTOMY SECTION HX COLONOSCOPY 02/16/2022 repeat in 10 years LIG/TRNSXJ FLP TUBE ABDL/VAG APPR UNI/BI PICC LINE INSERT/CONSULT 05/15/2021 PILONIDAL CYST/SINUS EXCISION 1985 TONSILLECTOMY PRIMARY/SECONDARY <AGE 12 FAMILY HISTORY Problem Relation Age of Onset No Ocular Disease Mother Alcohol abuse Mother Cataract Father Hypertension Father Social History Tobacco Use Smoking status: Former Packs/day: 0.30 Years: 15.00 Additional pack years: 0.00 Total pack years: 4.50 Types: Cigarettes Start date: 07/14/1978 Quit date: 05/21/2000 Years since quittin.1 Smokeless tobacco: Never Vaping Use Vaping Use: Some days Substances: CBD Substance Use Topics Alcohol use: Not Currently Drug use: Not Currently Types: Marijuana Comment: medical marijuana ACTIVE PROBLEM LIST Hypertension, Essential Anxiety Cva (Cerebral Vascular Accident) (Hcc) Diabetes Mellitus Type 2, Controlled, Without Complications (Hcc) Hyperlipidemia Ataxia Due to Acute Cerebrovascular Disease Obesity, Class II, Bmi 35-39.9 Intracranial Aneurysm Fabiola (Obstructive Sleep Apnea) Gerd (Gastroesophageal Reflux Disease) Irritable Bowel Syndrome With Diarrhea Back Pain Seborrheic Dermatitis Lacunar Stroke (Hcc) Hyperlipidemia Associated With Type 2 Diabetes Mellitus (Hcc) (Hcc) Hx of Craniotomy Imbalance Wound Dehiscence Subaortic Membrane ALLERGIES Allergen Reactions Pollen Extracts Other: See Comments Sneezing, itchy eyes MEDICATIONS: cetirizine (ZYRTEC) 10 mg tablet^Take 10 mg by mouth once daily.^Disp: ^Rfl: aspirin, enteric coated (ASPIRIN, ENTERIC COATED) 81 mg EC tablet^Take 81 mg by mouth once daily.^Disp: ^Rfl: CPAP/BIPAP/OTHER^Type .CPAPSettings into a note to see current settings/supplies/DME information.^Disp: 1 Each^Rfl: 0 iv contrast (will be provided with radiology test)^MRI Brain Inject, intravenously, once for 1 dose.No IV access, insert saline lock prior to beginning of sedation, infusion, injection of imaging exam.Discontinue saline lock post exam. If Pt. has a central line or IVAD, may access for administration according to line specific nursing protocol.Once exam is complete flush line and de-access according to line specific nursing protocol in the MR contrast administration guidelines link^Disp: 1 Each^Rfl: 0 ONETOUCH ULTRA2 METER^^Disp: ^Rfl: blood sugar diagnostic (BLOOD GLUCOSE TEST) test strip^Test blood sugar(s) 2 times daily. Dx: Type 2 DM - Uncontrolled E11.65 Insulin: No DX: E11.9^Disp: 50 Strip^Rfl: 11 Lancets lancets^Test blood sugar(s) 2 times daily. Dx: Type 2 DM - Uncontrolled E11.65 Insulin: No DX:E11.9^Disp: 100 Each^Rfl: 11 Ascorbic Acid 1,000 mg tablet^Take 1,000 mg by mouth once daily. PRN^Disp: ^Rfl: cholecalciferol, vitamin D3, (VITAMIN D3 ORAL)^Take by mouth. 2000 international unit(s) daily^Disp: ^Rfl: vitamin B complex (B COMPLEX ORAL)^Take 1 tablet by mouth once daily. ^Disp: ^Rfl: hydrALAZINE (APRESOLINE) 50 mg tablet^Take 1 tablet by mouth three times daily.^Disp: 270 tablet^Rfl: 3 metFORMIN (GLUCOPHAGE) 500 mg tablet^Take 1 tablet by mouth twice daily with meals.^Disp: 180 tablet^Rfl: 3 carvedilol (COREG) 6.25 mg tablet^Take 1 tablet by mouth twice daily with meals.^Disp: 180 tablet^Rfl: 3 lisinopril (ZESTRIL) 40 mg tablet^Take 1 tablet by mouth daily at bedtime.^Disp: 90 tablet^Rfl: 3 amLODIPine (NORVASC) 10 mg tablet^Take 1 tablet by mouth once daily.^Disp: 90 tablet^Rfl: 3 atorvastatin (LIPITOR) 40 mg tablet^Take 1 tablet by mouth once daily.^Disp: 90 tablet^Rfl: 3 ketoconazole (NIZORAL) 2 % cream^Apply 1 application to affected area once daily.^Disp: 60 g^Rfl: 1 gentamicin 0.1 % ointment^Apply to wound twice a day as directed^Disp: 15 g^Rfl: 1 acetaminophen (TYLENOL) 325 mg tablet^Take 2 tablets by mouth every 4 hours as needed for pain.^Disp: ^Rfl: (Patient not taking: Reported on 10/19/2022) EXAM:BP 110/72 Pulse 78 Temp 36.4 C (97.6 F) (Temporal) Ht 163.2 cm (5' 4.25) Wt 96.8 kg (213 lb 6.5 oz) LMP 05/11/2009 SpO2 97% BMI 36.34 kg/m Last Wt 07/11/23 : 96.8 kg (213 lb 6.5 oz) 11/15/22 : 101.6 kg (224 lb) 10/25/22 : 101.9 kg (224 lb 9.6 oz) 10/19/22 : 101.6 kg (224 lb) PHYSICAL EXAM: General Appearance: Well appearing, alert, in no acute distress, well-hydrated, well nourished.. Skin: Skin color, texture, turgor normal, no suspicious rashes or lesions. Lymph Nodes: No cervical lymphadenopathy, No supraclavicular lymphadenopathy Lungs: Lungs clear to auscultation. No wheezing, rhonchi, rales. Heart: RRR without murmur, gallop, or rubs. No ectopy. Abdomen: Normal abdominal exam, Abdomen soft, non-tender. Bowel sounds normal. No masses, organomegaly. Neurologic: Gait normal. ASSESSMENT/PLAN: 1. Spinal stenosis of lumbar region with neurogenic claudication - ICD9: 724.03, ICD10: M48.062 (primary diagnosis) - CONSULT TO PHYSICAL THERAPY 2. FABIOLA (obstructive sleep apnea) - ICD9: 327.23, ICD10: G47.33 - PAP THERAPY ORDER 3. Intracranial aneurysm - ICD9: 437.3, ICD10: I67.1 - stable, fu with neurosurgeon/plastics 4. 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 Hyperlipidemia associated with type 2 diabetes mellitus (HCC) (HCC) - ICD9: 250.80, 272.4, ICD10: E11.69, E78.5 - Controlled - Continue current medications - ATORVASTATIN 40 MG TABLET 6. Hypertension, essential - ICD9: 401.9, ICD10: I10 - Controlled - Continue current medications - Recommend home blood pressure monitoring, to bring results to next visit - Encouraged sodium restriction, DASH or Mediterranean diet - Recommend regular aerobic exercise - HYDRALAZINE 50 MG TABLET - CARVEDILOL 6.25 MG TABLET - LISINOPRIL 40 MG TABLET - AMLODIPINE 10 MG TABLET 7. Controlled type 2 diabetes mellitus without complication, without long-term current use of insulin (HCC) - ICD9: 250.00, ICD10: E11.9 - Controlled - Continue current medications - METFORMIN 500 MG TABLET 8. Lacunar stroke (HCC) - ICD9: 434.91, ICD10: I63.81 - ATORVASTATIN 40 MG TABLET 9. Seborrheic dermatitis - ICD9: 690.10, ICD10: L21.9 - refill KETOCONAZOLE 2 % TOPICAL CREAM Yessenia Rodriguez documented in this encounterMercy [facility]04-30-2024 Instructions* Patient Instructions* Plogger, Mirian, EDUCATIONAL ADMINISTRATION TEACHER - 07/11/2023 3:08 PM EDT [facility] BUILDING LAB TEST INFORMATION [facility] BUILDING LAB HOURS: Lab is open: 7:30am to 5:00pm M - Th, 7:30am to 4:00pm onFri and 8am -12pm on Sat. The lab is located in [facility] on the first floor. There is a registration window at the lab, available 7 am to 3 pm Monday - Monday. If registration is unavailable at the lab, you may register at the patient registration office near the front lobby of the hospital. SCHEDULING A LAB APPOINTMENT: Laboratory appointments are recommended.Walk ins are still accepted. Call [phone] or schedule via [employer] scheduling ticket. ROUTINE LAB ORDERS 60 days after they are entered. If your lab orders , you may be required to wait in the lab while they are reinstated FUTURE ORDERS are lab tests to be completed on the EXPECTED date. These orders 60 days afterthe expected date. STANDING ORDERS are recurring orders with an expiration date. The interval will indicate how often the test should be completed. CT / MRI / IVP If you have lab tests ordered for one of these radiology exams, please complete the blood work at least one day prior to the scheduled exam. PRESCRIPTION REFILL REQUESTS Request prescription refills through your [employer] account or contact your Pharmacy. My Chart Schedule My Appointment enables you to view your established primary care provider's open schedule and book an appointment online in real-time. This feature is available in internal medicine, family medicine, or pediatrics at any of our [facility] locations and main campus. documented in this encounterMercy Health [facility]03-13-2024 Miscellaneous Notes* Telephone Encounter - Luz Marina Mcmahan PA-C - 05/24/2023 4:11 PM EDT Noted. Luz Marina Mcmahan PA-C * Telephone Encounter - Katina Bautista RN - 05/24/2023 3:57 PM EDT Called and spoke to pt She states she still has the same hole on her head Saw plastic surgery last 11/15/22 Merle is a 61 year old female here today with history of craniotomy with wound dehiscence. Drains intermittently and collects sebaceous material. No infectious or systemic signs. Previously had plate removed and primary closure that had delayed healing secondary to ?MRSA. No h/o radiation (Crani done for ruptured aneurysm). States her symptoms are the same, still has a tiny pinhole that occasionally drains fluid. She is also moving this weekend and a little concerned she is going to expose the hole to dirt/ germs while moving. Trying to prevent infection. Has had staph in that wound before. Has not used the rx since it was last rx. 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 Does not need this request filled any more * Telephone Encounter - Luz Marina Mcmahan PA-C - 05/24/2023 11:36 AM EDT Please find out why pt is requesting this? Luz Marina Mcmahan PA-C * Telephone Encounter - Aniyah Irizarry APRN.CNP - 05/24/2023 9:14 AM EDT Pt needs follow up appt. Last wound center appt was 07/2022 and wound healed at that time. documented in this encounterMercy Health [facility]11-14-2023 Miscellaneous Notes* Telephone Encounter - Mirian Iraheta LPN - 01/24/2023 1:11 PM EST Please review and advise. documented in this encounterMercy Health [facility]09-29-2023 Miscellaneous Notes* Telephone Encounter - Mirian Iraheta LPN - 12/09/2022 2:55 PM EDT Medication is pended. documented in this encounterMercy Health [facility]09-11-2023 Miscellaneous Notes* Telephone Encounter - Luz Marina Carcamo PA-C - 11/21/2022 10:10 AM EDT Printed, please process. Thanks Luz Marina Carcamo PA-C * Telephone Encounter - Mirian Iraheta LPN - 11/21/2022 8:14 AM EDT Please review and advise. documented in this encounterMercy Health [facility]09-05-2023 History of Present illness Narrative* Foreign Gilbert MD - 11/15/2022 2:30 PM EDT Images from the original note were not included. Foreign Gilbert [facility] [address] Plastic Surgery New Office Note CC:Wound Check HPI: Merle is a 61 year old female here today with history of craniotomy with wound dehiscence.Drains intermittently and collects sebaceous material. No infectious or systemic signs. Previously had plate removed and primary closure that had delayed healing secondary to ?MRSA. No h/o radiation (Crani done for ruptured aneurysm). PAST MEDICAL HISTORY Diagnosis Date Diabetes mellitus (HCC) 11/2019 GERD (gastroesophageal reflux disease) Hypertension Irritable bowel syndrome with diarrhea Lacunar stroke (HCC) 11/2019 FABIOLA (obstructive sleep apnea) PAST SURGICAL HISTORY Procedure Laterality Date APPENDECTOMY SECTION HX COLONOSCOPY 02/16/2022 repeat in 10 years LIG/TRNSXJ FLP TUBE ABDL/VAG APPR UNI/BI PICC LINE INSERT/CONSULT 05/15/2021 PILONIDAL CYST/SINUS EXCISION 1985 TONSILLECTOMY PRIMARY/SECONDARY <AGE 12 FAMILY HISTORY Problem Relation Age of Onset No Ocular Disease Mother Alcohol abuse Mother Cataract Father Hypertension Father Social History Tobacco Use Smoking status: Former Packs/day: 0.30 Years: 15.00 Additional pack years: 0.00 Total pack years: 4.50 Types: Cigarettes Start date: 07/14/1978 Quit date: 05/21/2000 Years since quittin.4 Smokeless tobacco: Never Vaping Use Vaping Use: Some days Substances: CBD Substance Use Topics Alcohol use: Not Currently Drug use: Not Currently Types: Marijuana Comment: medical marijuana Current Outpatient Medications Medication Sig hydrALAZINE (APRESOLINE) 50 mg tablet Take 1 tablet by mouth three times daily. citalopram hydrobromide (CELEXA) 10 mg tablet Take 1 tablet by mouth once daily. (Patient not taking: Reported on 10/25/2022) metFORMIN (GLUCOPHAGE) 500 mg tablet Take 1 tablet by mouth twice daily with meals. carvedilol (COREG) 6.25 mg tablet Take 1 tablet by mouth twice daily with meals. lisinopril (ZESTRIL) 40 mg tablet Take 1 tablet by mouth daily at bedtime. amLODIPine (NORVASC) 10 mg tablet Take 1 tablet by mouth once daily. gentamicin 0.1 % ointment Apply to wound twice a day as directed aspirin, enteric coated (ASPIRIN, ENTERIC COATED) 81 mg EC tablet Take 81 mg by mouth once daily. CPAP/BIPAP/OTHER Type .CPAPSettings into a note to see current settings/supplies/DME information. atorvastatin (LIPITOR) 40 mg tablet Take 1 tablet by mouth once daily. iv contrast (will be provided with radiology test) MRI Brain Inject, intravenously, once for 1 dose.No IV access, insert saline lock prior to beginning of sedation, infusion, injection of imaging exam.Discontinue saline lock post exam. If Pt. has a central line or IVAD, may access for administration according to line specific nursing protocol.Once exam is complete flush line and de-access according to line specific nursing protocol in the MR contrast administration guidelines link Vital Metrix2 METER blood sugar diagnostic (BLOOD GLUCOSE TEST) test strip Test blood sugar(s) 2 times daily. Dx: Type 2 DM - Uncontrolled E11.65 Insulin: No DX: E11.9 Lancets lancets Test blood sugar(s) 2 times daily. Dx: Type 2 DM - Uncontrolled E11.65 Insulin: No DX:E11.9 acetaminophen (TYLENOL) 325 mg tablet Take 2 tablets by mouth every 4 hours as needed for pain. (Patient not taking: Reported on 10/19/2022) Ascorbic Acid 1,000 mg tablet Take 1,000 mg by mouth once daily. PRN cholecalciferol, vitamin D3, (VITAMIN D3 ORAL) Take by mouth. 2000 international unit(s) daily vitamin B complex (B COMPLEX ORAL) Take 1 tablet by mouth once daily. Current Facility-Administered Medications Medication Dose Route Frequency perflutren lipid microspheres 1.3 mL in NaCl (PF) 0.9% 10 mL injection (DEFINITY) INTRAVENOUS DIRECTED PRN sodium chloride 0.9 % (flush) 10 mL (BD POSIFLUSH) 10 mL INTRAVENOUS DIRECTED PRN perflutren lipid microspheres 1.3 mL in NaCl (PF) 0.9% 10 mL injection (DEFINITY) INTRAVENOUS DIRECTED PRN sodium chloride 0.9 % (flush) 10 mL (BD POSIFLUSH) 10 mL INTRAVENOUS DIRECTED PRN ALLERGIES Allergen Reactions Pollen Extracts Other: See Comments Sneezing, itchy eyes REVIEW OF SYSTEMS: ROS PHYSICAL EXAM: [facility] 05/11/2009 CONSTITUTIONAL: awake, alert, cooperative, no apparent distress, and appears stated age NEURO: Cranial nerves II-XII grossly intact. No signs of agitated mood. HEENT - EOMI, anicteric, CN V and VII intact, right frontal wound with depression 2x3cm, sebaceous material removed, no exposed hardware/bone. Contour irregularities and palpable but not exposed plates posterior x1 and on left side x2 ASSESSMENT / PLAN: 61 year old y/o female with frontal calvarial wound - discussed flap rotation vs excision and placement of skin substitute. Also discussed weight optimization. Patient will return following attemptedweight gain to discuss procedures again. Given additional hardware, tentative plan is for second option. During this patient visit I have spent approximately 30 minutes out of 45 in counseling regarding treatment options and coordinating care. The patient is seen and examined by Dr. Gilbert and the following reflects his/her service. Scribed by Eva Siddiqi MA I agree with the Chief Complaint, ROS, and Past Histories independently gathered by the clinical bioinformatics support specialist and the remaining scribed note accurately describes my personal service to the patient. documented in this encounterMer[facility]-17-[facility]23 Miscellaneous Notes* Telephone Encounter - Gregg Wells RN - 10/27/2022 8:08 AM EDT Images from the original note were not included. Patrica Mclaughlin DO P [facility] Nurse Pool Normal/low risk nuclear stress test documented in this encounterMercy Health [facility]08-15-2023 History of Present illness Narrative* Yessenia Rodriguez MD - 10/25/2022 3:46 PM EDT Patient presents with: Follow Up HPI: Merle Bradley is a 61 year old female who presents to the office today for follow up. DM Metformin 500 mg BID Overdue for eye exam Hemoglobin A1C (%) Date Value 04/05/2022 6.1 07/14/2020 6.8 11/12/2019 8.4 Hemoglobin A1C (POCT) (%) Date Value 10/25/2022 6.0 10/22/2020 5.9 Anxiety Was started on citalopram on 08/17 - had side effects Step sister last month, they were close GONCALVES saw cardio - ordered nuc med stress test - normal. 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 EYES: No diplopia or blurry vision. CARDIOVASCULAR: No chest pain, dyspnea, palpitations, orthopnea, PND, ankle edema. PULM: No dyspnea, unexplained cough. GI: No dysphagia/odynophagia, problematic reflux, constipation, diarrhea, changes in stool habits, hematochezia, melena. : No new urinary complaints, including dysuria, gross hematuria or pyuria. NEURO: No new balance problems, peripheral weakness/paresthesias or numbness of concern. MUSC-SKEL: No new joint pain, swelling, or erythema. PSY: No concerns regarding depression, anxiety or panic. INTEGUMENTARY: No new skin changes (rash, new or changing mole, new growth) PAST MEDICAL HISTORY Diagnosis Date Diabetes mellitus (HCC) 11/2019 GERD (gastroesophageal reflux disease) Hypertension Irritable bowel syndrome with diarrhea Lacunar stroke (HCC) 11/2019 FABIOLA (obstructive sleep apnea) PAST SURGICAL HISTORY Procedure Laterality Date APPENDECTOMY SECTION HX COLONOSCOPY 02/16/2022 repeat in 10 years LIG/TRNSXJ FLP TUBE ABDL/VAG APPR UNI/BI PICC LINE INSERT/CONSULT 05/15/2021 PILONIDAL CYST/SINUS EXCISION 1985 TONSILLECTOMY PRIMARY/SECONDARY <AGE 14 FAMILY HISTORY Problem Relation Age of Onset No Ocular Disease Mother Alcohol abuse Mother Cataract Father Hypertension Father Social History Tobacco Use Smoking status: Former Packs/day: 0.30 Years: 15.00 Additional pack years: 0.00 Total pack years: 4.50 Types: Cigarettes Start date: 07/14/1978 Quit date: 05/21/2000 Years since quittin.4 Smokeless tobacco: Never Vaping Use Vaping Use: Some days Substances: CBD Substance Use Topics Alcohol use: Not Currently Drug use: Not Currently Types: Marijuana Comment: medical marijuana ACTIVE PROBLEM LIST Hypertension, Essential Anxiety Cva (Cerebral Vascular Accident) (Hcc) Diabetes Mellitus Type 2, Controlled, Without Complications (Hcc) Hyperlipidemia Ataxia Due to Acute Cerebrovascular Disease Obesity, Class II, Bmi 35-39.9 Intracranial Aneurysm Fabiola (Obstructive Sleep Apnea) Gerd (Gastroesophageal Reflux Disease) Irritable Bowel Syndrome With Diarrhea Back Pain Seborrheic Dermatitis Lacunar Stroke (Hcc) Hyperlipidemia Associated With Type 2 Diabetes Mellitus (Hcc) Hx of Craniotomy Imbalance Wound Dehiscence Subaortic Membrane ALLERGIES Allergen Reactions Pollen Extracts Other: See Comments Sneezing, itchy eyes MEDICATIONS: hydrALAZINE (APRESOLINE) 50 mg tablet^Take 1 tablet by mouth three times daily.^Disp: 270 tablet^Rfl: 3 metFORMIN (GLUCOPHAGE) 500 mg tablet^Take 1 tablet by mouth twice daily with meals.^Disp: 180 tablet^Rfl: 3 carvedilol (COREG) 6.25 mg tablet^Take 1 tablet by mouth twice daily with meals.^Disp: 180 tablet^Rfl: 3 lisinopril (ZESTRIL) 40 mg tablet^Take 1 tablet by mouth daily at bedtime.^Disp: 90 tablet^Rfl: 3 amLODIPine (NORVASC) 10 mg tablet^Take 1 tablet by mouth once daily.^Disp: 90 tablet^Rfl: 3 gentamicin 0.1 % ointment^Apply to wound twice a day as directed^Disp: 15 g^Rfl: 1 aspirin, enteric coated (ASPIRIN, ENTERIC COATED) 81 mg EC tablet^Take 81 mg by mouth once daily.^Disp: ^Rfl: CPAP/BIPAP/OTHER^Type .CPAPSettings into a note to see current settings/supplies/DME information.^Disp: 1 Each^Rfl: 0 atorvastatin (LIPITOR) 40 mg tablet^Take 1 tablet by mouth once daily.^Disp: 90 tablet^Rfl: 3 iv contrast (will be provided with radiology test)^MRI Brain Inject, intravenously, once for 1 dose.No IV access, insert saline lock prior to beginning of sedation, infusion, injection of imaging exam.Discontinue saline lock post exam. If Pt. has a central line or IVAD, may access for administration according to line specific nursing protocol.Once exam is complete flush line and de-access according to line specific nursing protocol in the MR contrast administration guidelines link^Disp: 1 Each^Rfl: 0 ONETOUCH ULTRA2 METER^^Disp: ^Rfl: blood sugar diagnostic (BLOOD GLUCOSE TEST) test strip^Test blood sugar(s) 2 times daily. Dx: Type 2 DM - Uncontrolled E11.65 Insulin: No DX: E11.9^Disp: 50 Strip^Rfl: 11 Lancets lancets^Test blood sugar(s) 2 times daily. Dx: Type 2 DM - Uncontrolled E11.65 Insulin: No DX:E11.9^Disp: 100 Each^Rfl: 11 Ascorbic Acid 1,000 mg tablet^Take 1,000 mg by mouth once daily. PRN^Disp: ^Rfl: cholecalciferol, vitamin D3, (VITAMIN D3 ORAL)^Take by mouth. 2000 international unit(s) daily^Disp: ^Rfl: vitamin B complex (B COMPLEX ORAL)^Take 1 tablet by mouth once daily. ^Disp: ^Rfl: citalopram hydrobromide (CELEXA) 10 mg tablet^Take 1 tablet by mouth once daily.^Disp: 30 tablet^Rfl: 1 (Patient not taking: Reported on 10/25/2022) acetaminophen (TYLENOL) 325 mg tablet^Take 2 tablets by mouth every 4 hours as needed for pain.^Disp: ^Rfl: (Patient not taking: Reported on 10/19/2022) EXAM:BP 120/72 Pulse 95 Temp 37.4 C (99.3 F) (Temporal) Ht 160 cm (5' 2.99) Wt 101.9 kg (224 lb 9.6 oz) LMP 05/11/2009 SpO2 97% BMI 39.80 kg/m Last Wt 10/25/22 : 101.9 kg (224 lb 9.6 oz) 10/19/22 : 101.6 kg (224 lb) 08/17/22 : 99.3 kg (219 lb) 08/01/22 : 102.8 kg (226 lb 9.6 oz) PHYSICAL EXAM: General Appearance: Well appearing, alert, in no acute distress, well-hydrated, well nourished.. Skin: Skin color, texture, turgor normal, no suspicious rashes or lesions. Lungs: Lungs clear to auscultation. No wheezing, rhonchi, rales. Heart: RRR without murmur, gallop, or rubs. No ectopy. Peripheral Pulses: Normal. Neurologic: Gait normal. 5/5 monofilament testing normal. ASSESSMENT/PLAN: 1. 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 Anxiety - ICD9: 300.00, ICD10: F41.9 - consider buspirone next visit, pt declines further intervention at this time 4. Obesity, Class II, BMI 35-39.9 - ICD9: 278.00, ICD10: E66.9 Stable - Behavioral intervention Yessenia Rodriguez * Mirian Iraheta LPN - 10/25/2022 3:32 PM EDT URINE ALBUMIN:CREATININE RATIO Never done HEPATITIS C SCREENING Never done HIV SCREENING Never done BP CONTROLLED (<130/80) Never done DILATED RETINAL EXAM due on 12/02/2020 MAMMOGRAM due on 12/24/2020 DIABETIC FOOT EXAM due on 01/06/2021 HBA1C due on 10/03/2022 documented in this encounterMer[facility]08-15-2023 Instructions* Patient Instructions* Mirian Iraheta LPN - 10/25/2022 3:32 PM EDT [facility] BUILDING LAB TEST INFORMATION [facility] BUILDING LAB HOURS: Lab is open: 7:30am to 5:00pm M - Th, 7:30am to 4:00pm onFri and 8am -12pm on Sat. The lab is located in [facility] on the first floor. There is a registration window at the lab, available 7 am to 3 pm Monday - Monday. If registration is unavailable at the lab, you may register at the patient registration office near the front lobby of the [facility]. SCHEDULING A LAB APPOINTMENT: Laboratory appointments are recommended.Walk ins are still accepted. Call [phone] or schedule via [employer] scheduling ticket. ROUTINE LAB ORDERS 60 days after they are entered. If your lab orders , you may be required to wait in the lab while they are reinstated FUTURE ORDERS are lab tests to be completed on the EXPECTED date. These orders 60 days afterthe expected date. STANDING ORDERS are recurring orders with an expiration date. The interval will indicate how often the test should be completed. CT / MRI / IVP If you have lab tests ordered for one of these radiology exams, please complete the blood work at least one day prior to the scheduled exam. PRESCRIPTION REFILL REQUESTS Request prescription refills through your [employer] account or contact your Pharmacy. My Chart Schedule My Appointment enables you to view your established primary care provider's open schedule and book an appointment online in real-time. This feature is available in internal medicine, family medicine, or pediatrics at any of our [facility] locations and main campus. documented in this encounterMercy [facility]08-15-2023 NoteHNO ID: [id number] Author: Darnell Valerio, BELINDA Service: Nuclear Medicine Author Type: Technologist Type: Progress Notes Filed: 10/25/2022 1:28 PM Note Text: RADIOLOGY SERVICE PROGRESS NOTE SERVICE DATE: 10/25/2022 SERVICE TIME: 1:22 PM PATIENT IDENTITY VERIFICATION COMPLETED USING TWO (2) STANDARD IDENTIFIERS: Name and Date of confirmed by patient verbally and Name and Date of confirmed by identification band FALL SCREENING: Has the patient had 2 falls in the last year or 1 fall with injury or currently using an Ambulatory Assistive Device (Walker, Cane, Wheelchair, Crutches, etc.)? Yes, Patient High Risk for Falls What interventions were put in place to prevent falls during this visit? Instructed Patient to Call for Help if Needed and Increased Observations by Caregivers PATIENT GENDER DATA: .female : No ALLERGIES: Reviewed and unchanged MEDICATIONS REVIEWED: Not applicable PATIENT RELEVANT IMPLANT DATA REVIEWED: Not Applicable CREATININE: Creatinine Date Value Ref Range Status 04/05/2022 0.65 0.58 - 0.96 mg/dL Final 06/21/2021 0.67 0.58 - 0.96 mg/dL Final 06/14/2021 0.85 0.58 - 0.96 mg/dL Final Estimated Glomerular Filtration Rate Date Value Ref Range Status 04/05/2022 102 >=60 mL/min/1.73m? Final Comment: Estimated Glomerular Filtration Rate (eGFR) is calculated using the 2020 CKD-EPI creatinine equation. This equation utilizes serum creatinine, sex, and age as parameters. The creatinine assay has traceable calibration to isotope dilution-mass spectrometry. Refer to KDIGO guidelines for clinical interpretation. In patients with unstable renal function, e.g. those with acute kidney injury, the eGFR may not accurately reflect actual GFR. eGFR- Date Value Ref Range Status 07/21/2020 >60 Final P.O.C.T. RESULTS: N/A October 25, [address] PERFORMED: No IV SITE: Ambulatory: A peripheral IV was started in the Right forearm with a Angio cath: 22 gauge. POST EXAM PIV STATUS: Discontinued PROCEDURE TYPE: NM Stress: 15.2 mCi [id number] was administered IV for Rest Imaging at 12:08 by . 49.8 mCi [id number] was administered IV for Stress Imaging at 13:12 by . PATIENT DISCHARGED TO: Ambulatory patient, left [place] department area. A Diagnostic radioactive procedure has taken place, with no further precautions necessary other than routine body substance precautions. More information regarding radiation safety can be found using this link: [email or web address] SIGNATURE: BELINDA Armendariz PATIENT NAME: Merle Bradley DATE: October 25, 2022 TIME: 1:22 PM [phone] History of Present illness Narrative* Darnell Valerio CT - 10/25/2022 12:00 PM EDT RADIOLOGY SERVICE PROGRESS NOTE SERVICE DATE: 10/25/2022 SERVICE TIME: 1:22 PM PATIENT IDENTITY VERIFICATION COMPLETED USING TWO (2) STANDARD IDENTIFIERS: Name and Date of confirmed by patient verbally and Name and Date of confirmed by identification band FALL SCREENING: Has the patient had 2 falls in the last year or 1 fall with injury or currently using an Ambulatory Assistive Device (Walker, Cane, Wheelchair, Crutches, etc.)? Yes, Patient High Riskfor Falls What interventions were put in place to prevent falls during this visit? Instructed Patient to Callfor Help if Needed and Increased Observations by Caregivers PATIENT GENDER DATA: .female : No ALLERGIES: Reviewed and unchanged MEDICATIONS REVIEWED: Not applicable PATIENT RELEVANT IMPLANT DATA REVIEWED: Not Applicable CREATININE: Creatinine Date Value Ref Range Status 04/05/2022 0.65 0.58 - 0.96 mg/dL Final 06/21/2021 0.67 0.58 - 0.96 mg/dL Final 06/14/2021 0.85 0.58 - 0.96 mg/dL Final Estimated Glomerular Filtration Rate Date Value Ref Range Status 04/05/2022 102 >=60 mL/min/1.73m Final Comment: Estimated Glomerular Filtration Rate (eGFR) is calculated using the 2020 CKD-EPI creatinine equation. This equation utilizes serum creatinine, sex, and age as parameters. The creatinine assay has traceable calibration to isotope dilution- mass spectrometry. Refer to KDIGO guidelines for clinical interpretation. In patients with unstable renal function, e.g. those with acute kidney injury, the eGFRmay not accurately reflect actual GFR. eGFR- Date Value Ref Range Status 07/21/2020 >60 Final P.O.C.T. RESULTS: N/A October 25, [address] PERFORMED: No IV SITE: Ambulatory: A peripheral IV was started in the Right forearm with a Angio cath: 22 gauge. POST EXAM PIV STATUS: Discontinued PROCEDURE TYPE: FL Stress: 15.2 mCi [id number] was administered IV for Rest Imaging at 12:08 by . 49.8 mCi [id number] was administered IV for Stress Imaging at 13:12 by . PATIENT DISCHARGED TO: Ambulatory patient, left [place] department area. A Diagnostic radioactive procedure has taken place, with no further precautions necessary other than routine body substance precautions. More information regarding radiation safety can be found usingthis link: [email or web address] SIGNATURE: BELINDA Armendariz PATIENT NAME: Merle Bradley DATE: October 25, 2022 TIME: 1:22 PM PAGER/CONTACT #: documented in this encounterMercy [facility]08-14-2023 Miscellaneous Notes* Telephone Encounter - Carole Harris RN - 10/24/2022 1:01 PM EDT Left message regarding reminder for stress test tomorrow and given instructions. documented in this encounterMercy [facility]08-09-2023 History of Present illness Narrative* Patrica Lennon DO - 10/19/2022 10:06 AM EDT Images from the original note were not included. [facility] CARDIOLOGY [facility] OUTPATIENT VISIT DATE October 19, 2022 PRIMARY CARE PHYSICIAN: Yessenia Rodriguez ([facility]) [address] [place] [address] HISTORY OF PRESENT ILLNESS: Ms. Bradley is a 61 year old female. The patient presents for evaluation treatment options of dyspnea occurring with exertion abating with rest. This is progressed to some degree after she has had multiple challenges including recovering from stroke with eventual clipping of an aneurysm. She notes with extremes of dyspnea she also developed precordial chest discomfort in the center of her chest without radiation or other associated symptoms. She denies orthopnea, paroxysmal nocturnal dyspnea, palpitations, near-syncope or syncope. Recent echocardiogram was performed which suggested a possible subaortic membrane with a minimal gradient. The patient is and lives at home alone. She has grown children and grandchildren. She is disabled as result of her stroke. She is a non-smoker having quit remotely, nondrinker. She tries eatheart healthy meals. She does not engage in an exercise regimen but trying to improve with movement. She previously burned her glove pairer. Cardiac risk factors: Age, postmenopausal female, hypertension, hyperlipidemia, diabetes, previous tobacco abuse Impression: 1. Dyspnea exertion 2. Precordial chest pain 3. Hypertension 4. Hyperlipidemia 5. Diabetes 6. Obstructive sleep apnea 7. Subaortic membrane 8. History of CVA PLAN AND RECOMMENDATIONS: Given the patient's symptoms and risk factors, she will need to undergo nuclear stress imaging to eval for provokable ischemia. This will be performed with Lexiscan due to relative inability to exercise due to her previous stroke. In the absence of findings would look for other noncardiac causes ofher symptoms such as pulmonary or potentially deconditioning. We will follow-up with her in approximately 3 months time for reevaluation of her symptoms and to additionally discuss further evaluationin regards to future events in regards to her subaortic membrane. We may need to consider a cardiacCAT scan for further evaluation. Dietary and lifestyle education was otherwise reemphasized to facil itate risk factor reduction. Vitals: BP 128/82 Pulse 72 Ht 160 cm (5' 3) Wt 101.6 kg (224 lb) LMP 05/11/2009 SpO2 98% BMI 39.68 kg/m Physical Exam Vitals reviewed. Constitutional: General: She is not in acute distress. Appearance: Normal appearance. She is well-developed. HENT: Head: Normocephalic and atraumatic. Nose: Nose normal. Eyes: General: No scleral icterus. Right eye: No discharge. Left eye: No discharge. Pupils: Pupils are equal, round, and reactive to light. Neck: Thyroid: No thyromegaly. Vascular: No carotid bruit or JVD. Cardiovascular: Rate and Rhythm: Normal rate and regular rhythm. Heart sounds: Normal heart sounds. No murmur heard. No friction rub. No gallop. Pulmonary: Effort: Pulmonary effort is normal. No respiratory distress. Breath sounds: Normal breath sounds. No wheezing or rales. Abdominal: General: Bowel sounds are normal. Palpations: Abdomen is soft. Musculoskeletal: General: Normal range of motion. Cervical back: Normal range of motion and neck supple. Skin: General: Skin is warm and dry. Capillary Refill: Capillary refill takes less than 2 seconds. Coloration: Skin is not pale. Neurological: Mental Status: She is alert and oriented to person, place, and time. Cranial Nerves: No cranial nerve deficit. Psychiatric: Behavior: Behavior normal. Thought Content: Thought content normal. Judgment: Judgment normal. Review of Systems Constitutional: Negative for activity change and fatigue. HENT: Negative for ear pain and facial swelling. Eyes: Negative for pain and discharge. Respiratory: Positive for shortness of breath. Negative for chest tightness. Cardiovascular: Negative for chest pain, palpitations and leg swelling. Gastrointestinal: Negative for abdominal pain, blood in stool, nausea and vomiting. Endocrine: Negative for cold intolerance and heat intolerance. Genitourinary: Negative for frequency and hematuria. Musculoskeletal: Negative for arthralgias and gait problem. Skin: Negative for color change, pallor and rash. Allergic/Immunologic: Negative for immunocompromised state. Neurological: Negative for dizziness, syncope, light-headedness and headaches. Hematological: Negative for adenopathy. Does not bruise/bleed easily. Psychiatric/Behavioral: Negative for confusion. The patient is not nervous/anxious. PAST MEDICAL HISTORY Diagnosis Date Diabetes mellitus (HCC) 11/2019 GERD (gastroesophageal reflux disease) Hypertension Irritable bowel syndrome with diarrhea Lacunar stroke (HCC) 11/2019 FABIOLA (obstructive sleep apnea) PAST SURGICAL HISTORY Procedure Laterality Date APPENDECTOMY SECTION HX COLONOSCOPY 02/16/2022 repeat in 10 years LIG/TRNSXJ FLP TUBE ABDL/VAG APPR UNI/BI PICC LINE INSERT/CONSULT 05/15/2021 PILONIDAL CYST/SINUS EXCISION 1985 TONSILLECTOMY PRIMARY/SECONDARY <AGE 14 Social History Tobacco Use Smoking status: Former Packs/day: 0.30 Years: 15.00 Total pack years: 4.50 Types: Cigarettes Start date: 07/14/1978 Quit date: 05/21/2000 Years since quittin.4 Smokeless tobacco: Never Vaping Use Vaping Use: Some days Substances: CBD Substance Use Topics Alcohol use: Not Currently Drug use: Not Currently Types: Marijuana Comment: medical marijuana FAMILY HISTORY Problem Relation Age of Onset No Ocular Disease Mother Alcohol abuse Mother Cataract Father Hypertension Father ALLERGIES Allergen Reactions Pollen Extracts Other: See Comments Sneezing, itchy eyes CURRENT MEDICATIONS: hydrALAZINE (APRESOLINE) 50 mg tablet^Take 1 tablet by mouth three times daily.^Disp: 270 tablet^Rfl: 3 citalopram hydrobromide (CELEXA) 10 mg tablet^Take 1 tablet by mouth once daily.^Disp: 30 tablet^Rfl: 1 metFORMIN (GLUCOPHAGE) 500 mg tablet^Take 1 tablet by mouth twice daily with meals.^Disp: 180 tablet^Rfl: 3 carvedilol (COREG) 6.25 mg tablet^Take 1 tablet by mouth twice daily with meals.^Disp: 180 tablet^Rfl: 3 lisinopril (ZESTRIL) 40 mg tablet^Take 1 tablet by mouth daily at bedtime.^Disp: 90 tablet^Rfl: 3 amLODIPine (NORVASC) 10 mg tablet^Take 1 tablet by mouth once daily.^Disp: 90 tablet^Rfl: 3 gentamicin 0.1 % ointment^Apply to wound twice a day as directed^Disp: 15 g^Rfl: 1 aspirin, enteric coated (ASPIRIN, ENTERIC COATED) 81 mg EC tablet^Take 81 mg by mouth once daily.^Disp: ^Rfl: CPAP/BIPAP/OTHER^Type .CPAPSettings into a note to see current settings/supplies/DME information.^Disp: 1 Each^Rfl: 0 atorvastatin (LIPITOR) 40 mg tablet^Take 1 tablet by mouth once daily.^Disp: 90 tablet^Rfl: 3 MAZUCH ULTRA2 METER^^Disp: ^Rfl: blood sugar diagnostic (BLOOD GLUCOSE TEST) test strip^Test blood sugar(s) 2 times daily. Dx: Type 2 DM - Uncontrolled E11.65 Insulin: No DX: E11.9^Disp: 50 Strip^Rfl: 11 Lancets lancets^Test blood sugar(s) 2 times daily. Dx: Type 2 DM - Uncontrolled E11.65 Insulin: No DX:E11.9^Disp: 100 Each^Rfl: 11 Ascorbic Acid 1,000 mg tablet^Take 1,000 mg by mouth once daily. PRN^Disp: ^Rfl: cholecalciferol, vitamin D3, (VITAMIN D3 ORAL)^Take by mouth. 2000 international unit(s) daily^Disp: ^Rfl: vitamin B complex (B COMPLEX ORAL)^Take 1 tablet by mouth once daily. ^Disp: ^Rfl: iv contrast (will be provided with radiology test)^MRI Brain Inject, intravenously, once for 1 dose.No IV access, insert saline lock prior to beginning of sedation, infusion, injection of imaging exam.Discontinue saline lock post exam. If Pt. has a central line or IVAD, may access for administration according to line specific nursing protocol.Once exam is complete flush line and de-access according to line specific nursing protocol in the MR contrast administration guidelines link^Disp: 1 Each^Rfl: 0 acetaminophen (TYLENOL) 325 mg tablet^Take 2 tablets by mouth every 4 hours as needed for pain.^Disp: ^Rfl: (Patient not taking: Reported on 10/19/2022) Patrica Lennon DO, FAC, [facility] Counseling Specialist, [facility] Ambulatory Cardiology Counseling Specialist, [facility] Cardiac Rehabilitation Counseling Specialist, [facility] Cardiac Rehabilitation Counseling Specialist, [facility] Counseling Specialist, [facility] Ambulatory Cardiology Clinical Coding Director [employer] [facility], [facility] Staff Machine Biller, Mery Delgado Department of Cardiovascular Medicine/Heart and Vascular [place], [facility] Please note: This note has been produced using speech recognition software and may contain errors related to that system including an, punctuation, spelling, words, gender and phrases that may be inappropriate. documented in this encounterNina [place] [id number] NoteHNO ID: [id number] Author: MICHAEL Brian) Service: Radiology Author Type: Technologist Type: Progress Notes Filed: 08/17/2022 9:19 AM Note Text: Radiology Service Progress Note PATIENT NAME: Merle Bradley DATE OF SERVICE: August 17, 2022 TIME: 9:19 AM PATIENT IDENTITY VERIFICATION COMPLETED USING TWO (2) IDENTIFIERS: Name and Date of confirmed by patient verbally. FALL SCREENING: Has the patient had 2 falls in the last year or 1 fall with injury or currently using an Ambulatory Assistive Device (Walker, Cane, Wheelchair, Crutches, etc.)? No PATIENT GENDER DATA: Female. status: : No status: NO. PATIENT RELEVANT IMPLANT DATA REVIEWED: Not Applicable RADIOLOGY DEPARTMENT: General X-ray: Exam(s) Completed: Chest X-Ray PERIPHERAL IV DATA: Not applicable SIGNED BY: MICHAEL Brian) August 17, 2022 9:19 AMGlenbeigh [id number] History of Present illness Narrative* MICHAEL Brian) - 08/17/2022 9:00 AM EDT Radiology Service Progress Note PATIENT NAME: Merle Bradley DATE OF SERVICE: August 17, 2022 TIME: 9:19 AM PATIENT IDENTITY VERIFICATION COMPLETED USING TWO (2) IDENTIFIERS: Name and Date of confirmedby patient verbally. FALL SCREENING: Has the patient had 2 falls in the last year or 1 fall with injury or currently using an Ambulatory Assistive Device (Walker, Cane, Wheelchair, Crutches, etc.)? No PATIENT GENDER DATA: Female. status: : No status: NO. PATIENT RELEVANT IMPLANT DATA REVIEWED: Not Applicable RADIOLOGY DEPARTMENT: General X-ray: Exam(s) Completed: Chest X-Ray PERIPHERAL IV DATA: Not applicable SIGNED BY: MICHAEL Brian) August 17, 2022 9:19 AM documented in this encounterMercy Health [facility]06-07-[facility]23 History of Present illness Narrative* Rose Tyler APRN.PAINT BOOTH OPERATOR - 08/17/2022 8:22 AM EDT Patient presents with: Follow Up: Increased SOB and increased anxiety SOB since stroke over year ago Now that moving more, notices it more Can get wiped out with doing too much Yesterday cleaned daughters house, washed puppies, going up and down stairs, walking dogs outside and by end of day couldn't catch breath Does think poor air quality is playing a role, admits to pollen allergies Gets dizzy when at its worse Waiting for stress test to get approved to complete Has a tickle cough at times, no significant sinus sx No wheezing Admits to feeling anxious whole life Has had panic attacks Was on ativan back in the day Is worried about health which is making things worse Filing for disability which has been stressful Was diagnosed as ADHD years ago Has IBS with diarrhea Was on celexa in past, believes this worked for her Zoloft made her feel drugged PHYSICAL EXAMINATION: BP 120/84 Pulse 71 Temp 36.5 C (97.7 F) Resp 16 Ht 160 cm (5' 3) Wt 99.3 kg (219 lb) LMP 05/11/2009 SpO2 97% BMI 38.79 kg/m General appearance: healthy, alert, cooperative, pleasant, in no acute distress, somewhat anxious Heart: regular rate and rhythm, without murmur Lungs: clear to auscultation, without rales or wheeze, good air exchange Lower Extremities: no edema ASSESSMENT/PLAN: 1. GONCALVES (dyspnea on exertion) - ICD9: 786.09, ICD10: R06.09 (primary diagnosis) Complete CXR, PFTs, SUSAN Complete stress test as previously ordered - XR CHEST 2V FRONTAL/LAT - SPIROMETRY WITH DILATOR IF OBSTRUCTED - NITRIC OXIDE, EXHALED - LUNG VOLUMES 2. Anxiety - ICD9: 300.00, ICD10: F41.9 Start celexa Discussed med r/b/se Patient agreeable to monitor mood and for AE Discussed importance of taking med routinely Patient to f/u in 4 weeks or sooner prn Consider wellbutrin prn 3. Irritable bowel syndrome with diarrhea - ICD9: 564.1, ICD10: K58.0 D/w pt may improve with addition of celexa, to monitor Rose Tyler APRN.PAINT BOOTH OPERATOR * Aisha Meyer MA - 08/17/2022 8:15 AM EDT URINE ALBUMIN:CREATININE RATIO Never done HEPATITIS C SCREENING Never done HIV SCREENING Never done BP CONTROLLED (<130/80) Never done DILATED RETINAL EXAM due on 12/02/2020 MAMMOGRAM due on 12/24/2020 DIABETIC FOOT EXAM due on 01/06/2021 documented in this encounterMercy Health [facility]06-06-2023 Miscellaneous Notes* Telephone Encounter - Yessenia Rodriguez MD - 08/16/2022 4:10 PM EDT Noted. * Telephone Encounter - Makayla Loja RN - 08/16/2022 3:26 PM EDT Patient called with concern for increased SOB with activity, see below assessment. Recommendations given per protocol and appt scheduled for tomorrow. Will go to ED for any worsening sx. Reason for Disposition [1] MODERATE longstanding difficulty breathing (e.g., speaks in phrases, SOB even at rest, pulse 100-120) AND [2] SAME as normal Answer Assessment - Initial Assessment Questions 1. RESPIRATORY STATUS:SOB with conversation that subsided after about 5 minutes. 2. ONSET: ongoing SOB, worse today after over exertion helping her daughter 3. PATTERN: increased SOB with activity, subsides at rest 4. SEVERITY: Moderate, speaking in phrases then taking deep breath 5. RECURRENT SYMPTOM: Yes 6. 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 LUNG HISTORY: uses CPAP at night 8. CAUSE: over exertion 9. OTHER SYMPTOMS: positive dizziness when SOB occurs 10. O2 SATURATION MONITOR: Cannot monitor Protocols used: Breathing [id number]-ICGDD-HE documented in this encounterMercy Health [facility]06-01-2023 Miscellaneous Notes* Telephone Encounter - Jennifer Vergara - 08/11/2022 11:39 AM EDT Pt is scheduled * Telephone Encounter - Luz Marnia Carcamo PA-C - 08/10/2022 1:43 PM EDT Please schedule. Thanks, Luz Marina Carcamo PA-C * Telephone Encounter - Kathi Mcpherson RN - 08/10/2022 11:07 AM EDT Forwarded to cardio staff to confirm order is in correctly. Kathi Mcpherson RN * Telephone Encounter - Luz Marina Carcamo PA-C - 08/10/2022 10:52 AM EDT Pt's insurance denied stress echo. Recommend regular stress test. Please be sure my order is correcct. Thanks Luz Marina Carcamo PA-C documented in this encounterMercy Health Kings [facility]05-17-2023 NoteHNO ID: [id number] Author: Aniyah Irizarry APRN.PAINT BOOTH OPERATOR Service: ? Author Type: Nurse Practitioner Type: Progress Notes Filed: 07/27/2022 12:38 PM Note Text: WOUND CENTER PROGRESS NOTE PATIENT NAME: Merle Bradley DATE OF FOLLOW UP: 07/27/2022 REASON FOR FOLLOW UP: scalp wound HISTORY OF PRESENT ILLNESS: Merle Bradley is a 61 year old y/o female w/ PMH HTN, DMII, IBS, FABIOLA, lacunar stroke (2019), s/p bicoronal craniotomy for clipping of distal left LUBA aneurysm (07/21/2020who presents for wound assessment and treatment evaluation of right frontal scalp wound. Pt underwent craniotomy 07/2020 for clipping of a distal left LUBA aneurysm. She developed delayed wound dehiscence at the right side of the bicoronal incision and underwent IANDD, removal of hardware, and primary closure of the site on 05/13/2021. Operative cultures grew MSSA which was treated with IV Oxacillin (completed 06/2021). Pt then noted drainage from that right side incision again in November 2021. Pt did not follow up again with neurosurgery until March 2022 (secondary to dealing with sister's cancer diagnosis in late 2021). Labs and MRI of the brain was then ordered. Pt had neurosurgery follow up 04/11/2022, 05/09/2022, and 06/06/2022 for the wound. Neurosurgery referred her to plastic surgery for the wound. Pt self referred to [facility] for a second opinion regarding management/care of the wound. Location: right frontal scalp Onset: Nov 2021 Aggravating factors: Diabetes mellitus and Surgical Wound etiology: Surgical Associated pain with wound: Mild tenderness to touch Relieving factors for wound pain: n/a Treatments: Current: collagen hydrogel, Adaptic Past: Gentamicin ointment, Eliza, normal saline PAST MEDICAL HISTORY Diagnosis Date Diabetes mellitus (HCC) 11/2019 GERD (gastroesophageal reflux disease) Hypertension Irritable bowel syndrome with diarrhea Lacunar stroke ([facility]) 11/2019 FABIOLA (obstructive sleep apnea) PAST SURGICAL HISTORY Procedure Laterality Date APPENDECTOMY SECTION HX COLONOSCOPY 02/16/2022 repeat in 10 years LIG/TRNSXJ FLP TUBE ABDL/VAG APPR UNI/BI PICC LINE INSERT/CONSULT 05/15/2021 PILONIDAL CYST/SINUS EXCISION 1985 TONSILLECTOMY PRIMARY/SECONDARY ALLERGIES ALLERGIES Allergen Reactions Pollen Extracts Other: See Comments Sneezing, itchy eyes CURRENT OUTPATIENT MEDICATIONS metFORMIN (GLUCOPHAGE) 500 mg tabletTake 1 tablet by mouth twice daily with meals.Disp: 180 tabletRfl: 3 carvedilol (COREG) 6.25 mg tabletTake 1 tablet by mouth twice daily with meals.Disp: 180 tabletRfl: 3 lisinopril (ZESTRIL) 40 mg tabletTake 1 tablet by mouth daily at bedtime.Disp: 90 tabletRfl: 3 amLODIPine (NORVASC) 10 mg tabletTake 1 tablet by mouth once daily.Disp: 90 tabletRfl: 3 gentamicin 0.1 % ointmentApply to wound twice a day as directedDisp: 15 gRfl: 1 aspirin, enteric coated (ASPIRIN, ENTERIC COATED) 81 mg EC tabletTake 81 mg by mouth once daily.Disp: Rfl: CPAP/BIPAP/OTHERType .CPAPSettings into a note to see current settings/supplies/DME information.Disp: 1 EachRfl: 0 atorvastatin (LIPITOR) 40 mg tabletTake 1 tablet by mouth once daily.Disp: 90 tabletRfl: 3 hydrALAZINE (APRESOLINE) 50 mg tabletTake 1 tablet by mouth three times daily.Disp: 270 tabletRfl: 3 acetaminophen (TYLENOL) 325 mg tabletTake 2 tablets by mouth every 4 hours as needed for pain.Disp: Rfl: Ascorbic Acid 1,000 mg tabletTake 1,000 mg by mouth once daily. PRNDisp: Rfl: cholecalciferol, vitamin D3, (VITAMIN D3 ORAL)Take by mouth. 2000 international unit(s) dailyDisp: Rfl: vitamin B complex (B COMPLEX ORAL)Take 1 tablet by mouth once daily. Disp: Rfl: iv contrast (will be provided with radiology test)MRI Brain Inject, intravenously, once for 1 dose.No IV access, insert saline lock prior to beginning of sedation, infusion, injection of imaging exam.Discontinue saline lock post exam. If Pt. has a central line or IVAD, may access for administration according to line specific nursing protocol.Once exam is complete flush line and de-access according to line specific nursing protocol in the MR contrast administration guidelines linkDisp: 1 EachRfl: 0 ONETOUCH ULTRA2 METERDisp: Rfl: blood sugar diagnostic (BLOOD GLUCOSE TEST) test stripTest blood sugar(s) 2 times daily. Dx: Type 2 DM - Uncontrolled E11.65 Insulin: No DX: E11.9Disp: 50 StripRfl: 11 Lancets lancetsTest blood sugar(s) 2 times daily. Dx: Type 2 DM - Uncontrolled E11.65 Insulin: No DX:E11.9Disp: 100 EachRfl: 11 FAMILY HISTORY Problem Relation Age of Onset No Ocular Disease Mother Alcohol abuse Mother Cataract Father Hypertension Father Social History Tobacco Use Smoking status: Former Packs/day: 0.30 Years: 15.00 Pack years: 4.50 Types: Cigarettes Start date: 07/14/1978 Quit date: 05/21/2000 Years since quittin.1 Smokeless tobacco: Never Vaping Use (more content not included)...Glenbeigh [id number] Instructions* Patient Instructions* Christy Velasco RN - 07/27/2022 11:38 AM EDT WOUND CARE INSTRUCTIONS- Merle A Heinly Wound location: Right frontal scalp Wash your hands with soap and water before and after wound care. Gather all supplies needed. Clean wound with either normal saline or Vashe. Apply Vaseline to wound daily as long as it remains scabbed. To give your wound the best chance to heal: - Eat three balanced meals daily focusing on the protein - Control swelling by elevating the extremity above your heart - Control your blood sugar. Keep blood sugar less than 200 - Complete your wound care instructions - Vitamin C 500 mg twice daily - Multiple Vitamin Daily - Drink a protein shake daily Report any of the following changes to the wound center: [phone] or go to the Emergency Department: Fever or chills Increased drainage Green or yellow drainage Foul odor Increased pain Hardness around the wound Redness, warmth or swelling of the surrounding tissue Color change to the wound Evenings / Weekends / Holidays If you call the wound center at the phone number provided above, please leave a detailed message that includes your full name, birthday, and phone number. We are seeing patients during the day, so wewill return your call within a 24-48 hr period in the order your call was received. There is not anon-call provider assigned to the wound center. If you have an emergency that needs to be addressed,please go the Urgent Care or the Emergency Room. Thank you for your cooperation and understanding. PLAN/ORDERS: - Follow-up in the wound center with Aniyah Irizarry CNP as needed. - Continue aggressive nutritional support for optimal wound healing. - [facility] with [facility] in [place]. Aniyah Irizarry CNP//JUANI documented in this encounterMercy Health Kings [facility] Hospital05-17-2023 History of Present illness Narrative* Aniyah Irizarry, ALICE.[facility] - 07/27/2022 11:34 AM EDT Images from the original note were not included. WOUND CENTER PROGRESS NOTE PATIENT NAME: Merle Bradley DATE OF FOLLOW UP: 07/27/2022 REASON FOR FOLLOW UP: scalp wound HISTORY OF PRESENT ILLNESS: Merle Bradley is a 61 year old y/o female w/ PMH HTN, DMII, IBS, FABIOLA, lacunar stroke (2019), s/pbicoronal craniotomy for clipping of distal left LUBA aneurysm (07/21/2020who presents for wound assessment and treatment evaluation of right frontal scalp wound. Pt underwent craniotomy 07/2020 for clipping of a distal left LUBA aneurysm. She developed delayed wound dehiscence at the right side of thebicoronal incision and underwent I&D, removal of hardware, and primary closure of the site on 05/13/2021. Operative cultures grew MSSA which was treated with IV Oxacillin (completed 06/2021). Pt then noted drainage from that right side incision again in November 2021. Pt did not follow up again with neurosurgery until March 2022 (secondary to dealing with sister's cancer diagnosis in late 2021). Labs and MRI of the brain was then ordered. Pt had neurosurgery follow up 04/11/2022, 05/09/2022, and 06/06/2022 for the wound. Neurosurgery referred her to plastic surgery for the wound. Pt self referred to [facility] for a second opinion regarding management/care of the wound. Location: right frontal scalp Onset: Nov 2021 Aggravating factors: Diabetes mellitus and Surgical Wound etiology: Surgical Associated pain with wound: Mild tenderness to touch Relieving factors for wound pain: n/a Treatments: Current: collagen hydrogel, Adaptic Past: Gentamicin ointment, Eliza, normal saline PAST MEDICAL HISTORY Diagnosis Date Diabetes mellitus (HCC) 11/2019 GERD (gastroesophageal reflux disease) Hypertension Irritable bowel syndrome with diarrhea Lacunar stroke (HCC) 11/2019 FABIOLA (obstructive sleep apnea) PAST SURGICAL HISTORY Procedure Laterality Date APPENDECTOMY SECTION HX COLONOSCOPY 02/16/2022 repeat in 10 years LIG/TRNSXJ FLP TUBE ABDL/VAG APPR UNI/BI PICC LINE INSERT/CONSULT 05/15/2021 PILONIDAL CYST/SINUS EXCISION 1984 TONSILLECTOMY PRIMARY/SECONDARY <AGE 14 ALLERGIES ALLERGIES Allergen Reactions Pollen Extracts Other: See Comments Sneezing, itchy eyes CURRENT OUTPATIENT MEDICATIONS metFORMIN (GLUCOPHAGE) 500 mg tablet^Take 1 tablet by mouth twice daily with meals.^Disp: 180 tablet^Rfl: 3 carvedilol (COREG) 6.25 mg tablet^Take 1 tablet by mouth twice daily with meals.^Disp: 180 tablet^Rfl: 3 lisinopril (ZESTRIL) 40 mg tablet^Take 1 tablet by mouth daily at bedtime.^Disp: 90 tablet^Rfl: 3 amLODIPine (NORVASC) 10 mg tablet^Take 1 tablet by mouth once daily.^Disp: 90 tablet^Rfl: 3 gentamicin 0.1 % ointment^Apply to wound twice a day as directed^Disp: 15 g^Rfl: 1 aspirin, enteric coated (ASPIRIN, ENTERIC COATED) 81 mg EC tablet^Take 81 mg by mouth once daily.^Disp: ^Rfl: CPAP/BIPAP/OTHER^Type .CPAPSettings into a note to see current settings/supplies/DME information.^Disp: 1 Each^Rfl: 0 atorvastatin (LIPITOR) 40 mg tablet^Take 1 tablet by mouth once daily.^Disp: 90 tablet^Rfl: 3 hydrALAZINE (APRESOLINE) 50 mg tablet^Take 1 tablet by mouth three times daily.^Disp: 270 tablet^Rfl: 3 acetaminophen (TYLENOL) 325 mg tablet^Take 2 tablets by mouth every 4 hours as needed for pain.^Disp: ^Rfl: Ascorbic Acid 1,000 mg tablet^Take 1,000 mg by mouth once daily. PRN^Disp: ^Rfl: cholecalciferol, vitamin D3, (VITAMIN D3 ORAL)^Take by mouth. 2000 international unit(s) daily^Disp: ^Rfl: vitamin B complex (B COMPLEX ORAL)^Take 1 tablet by mouth once daily. ^Disp: ^Rfl: iv contrast (will be provided with radiology test)^MRI Brain Inject, intravenously, once for 1 dose.No IV access, insert saline lock prior to beginning of sedation, infusion, injection of imaging exam.Discontinue saline lock post exam. If Pt. has a central line or IVAD, may access for administration according to line specific nursing protocol.Once exam is complete flush line and de-access according to line specific nursing protocol in the MR contrast administration guidelines link^Disp: 1 Each^Rfl: 0 ONETOUCH ULTRA2 METER^^Disp: ^Rfl: blood sugar diagnostic (BLOOD GLUCOSE TEST) test strip^Test blood sugar(s) 2 times daily. Dx: Type 2 DM - Uncontrolled Insulin: No DX: E11.9^Disp: 50 Strip^Rfl: 11 Lancets lancets^Test blood sugar(s) 2 times daily. Dx: Type 2 DM - Uncontrolled Insulin: No DX:E11.9^Disp: 100 Each^Rfl: 11 FAMILY HISTORY Problem Relation Age of Onset No Ocular Disease Mother Alcohol abuse Mother Cataract Father Hypertension Father Social History Tobacco Use Smoking status: Former Packs/day: 0.30 Years: 15.00 Pack years: 4.50 Types: Cigarettes Start date: 07/14/1978 Quit date: 05/21/2000 Years since quittin.1 Smokeless tobacco: Never Vaping Use Vaping Use: Some days Substances: CBD Substance Use Topics Alcohol use: Not Currently Drug use: Not Currently Types: Marijuana Comment: medical marijuana REVIEW OF SYSTEMS: GENERAL: No weight loss, malaise or fevers RESPIRATORY: Negative for cough, hemoptysis, wheezing, COPD, dyspnea . Positive shortness of breathwith exertion. CARDIOVASCULAR: Negative for chest pain, leg swelling, hypertension, CHF or palpitations GI: No nausea, vomiting, or diarrhea MUSCULOSKELETAL: Negative for joint pain or swelling, back pain or muscle pain SKIN: Positive for wound, scalp HEMATOLOGY/LYMPHOLOGY: Negative for prolonged bleeding, bruising easily or swollen nodes ENDOCRINE: Negative for cold or heat intolerance, polyuria, polydipsia and goiter NEURO: No history of headaches, syncope, paralysis, seizures or tremors. Positive intermittent numbness/tingling of right cheek/side of mouth, right 4th/5th fingers and thumb (baseline since CVA) PHYSICAL EXAM: BP 118/79 / Pulse 72 / Resp 22 / Temp 97.5 F / SpO2 96% General appearance: Well appearing, alert, in no acute distress, well-hydrated, well nourished. Skin: Skin color, texture, turgor normal, no suspicious rashes or lesions. Positives: wound, right scalp (see wound assessment) Head: Normocephalic, no masses. No tenderness except at wound area with touch. Wound, right scalp. Eyes: Anicteric sclera. Pupils are equally round and reactive to light. Extraocular movements are intact. Lungs: normal respiratory rate and rhythm Heart: regular rate and rhythm Musculoskeletal: No joint swelling, deformity, or tenderness. CHIN freely. Neuro: Oriented X 3. Ambulatory with cane. WOUND ASSESSMENT Wound 1: Location: right frontal scalp Type: surgical Stage: NA Exposed structure:None Progress:closed Wound measurements (cm): 0 Full thickness- Yes Tunneling/undermining: none Wound tissue color: epithelial, mild hyperkeratotic tissue Periwound tissue: dry and intact, scar tissue; no erythema, no edema, no induration Drainage: none Drainage odor: n/a DATA PHOTOGRAPHY: yes A photo was taken of the patient's wound(s). Photos can be found under the [facility] images tab on [facility]. The purpose of the photo(s) is to optimize the patient's medical care and allow a visual aid to their wound evaluation and progress. The photo(s) are not intended for publication, education, or research. If the use of the photo is desired in any additional way, other than for the above outlined purposes, then an additional consentfor the intended use will need to be obtained by the requesting provider. Photo was taken of: right frontal scalp Verbal consent was obtained: yes WBC (k/uL) Date Value 04/05/2022 8.76 06/21/2021 8.31 06/14/2021 8.01 07/21/2020 8.12 07/14/2020 6.93 11/27/2019 10.99 Hemoglobin (g/dL) Date Value 04/05/2022 14.8 06/21/2021 13.7 06/14/2021 14.1 07/21/2020 12.3 07/14/2020 14.3 11/27/2019 15.7 PT INR (no units) Date Value 07/14/2020 1.1 11/11/2019 1.0 INR (no units) Date Value 05/11/2021 1.0 Sodium (mmol/L) Date Value 04/05/2022 138 05/18/2021 134 05/17/2021 133 07/21/2020 139 07/14/2020 138 11/27/2019 135 Potassium (mmol/L) Date Value 04/05/2022 4.2 05/18/2021 4.2 05/17/2021 4.2 07/21/2020 4.4 07/14/2020 4.0 11/27/2019 4.6 CO2 (mmol/L) Date Value 04/05/2022 22 05/18/2021 24 05/17/2021 23 07/21/2020 19 07/14/2020 21 11/27/2019 21 BUN (mg/dL) Date Value 04/05/2022 13 05/18/2021 15 05/17/2021 17 07/21/2020 10 07/14/2020 10 11/27/2019 13 AST (U/L) Date Value 06/21/2021 18 06/14/2021 17 06/07/2021 15 11/25/2019 23 11/24/2019 26 ALT (U/L) Date Value 06/21/2021 21 06/14/2021 21 06/07/2021 20 11/25/2019 24 11/24/2019 28 Bilirubin, Total (mg/dL) Date Value 06/21/2021 0.4 06/14/2021 0.4 06/07/2021 0.6 11/25/2019 0.8 11/24/2019 0.7 Alkaline Phosphatase (U/L) Date Value 06/21/2021 76 06/14/2021 87 06/07/2021 89 11/25/2019 66 11/24/2019 71 Sed Rate, Westergren (mm/hr) Date Value 04/05/2022 2 05/11/2021 8 Lactate (mmol/L) Date Value 07/21/2020 1.1 07/21/2020 1.7 07/21/2020 1.4 Vancomycin (ug/mL) Date Value 05/15/2021 18.3 MICROBIOLOGY: Reviewed IMAGING: Reviewed; MRI of brain (05/03/2022)- osseous irregularity of the bifrontal craniotomy bone flap with subjacent dural enhancement...findings nonspecific, could relate to granulation and/or chronic infection. No discrete abscess or subjacent parenchymal findings. IMPRESSION/RECOMMENDATIONS The patient's age and other co morbidities are likely to impact wound and skin integrity Additional impediments to healing Diabetic: Yes Anticoagulation: Aspirin Antibiotics: No Steroids: No CM 1. Skin ulcer of scalp, limited to breakdown of skin (HCC) 2. Hx craniotomy Comment: Wound closed. Plan: - Cleanse area with Vashe solution or normal saline and gauze. Apply Vaseline daily. Keep TOM. - Continue aggressive nutritional support to assist wound healing. - Follow up with neurosurgery as directed - Follow up in wound center as needed I discussed the plan in detail with the patient and the patient verbalizes understanding and is in agreement. My previous progress note dated 07/13/2022 was copied forward, updated where appropriate, and reflective of current medical decision making today, 07/27/2022. Aniyah Irizarry APRN, PAINT BOOTH OPERATOR, CWS Certified Block Making Machine Operator July 27, 2022 documented in this [facility] Nurse Note* Christy Velasco RN - 07/27/2022 11:33 AM EDT Nursing Documentation Pertinent Medical History: DM, HTN, FABIOLA, lacunar stroke 2019 and incidental finding of brain aneurysm Wound Etiology according to patient: craniotomy July 2020 for clipping of brain aneurysm Wound dehiscence, I&D and hardware removal May 2021 & IV antibiotics; Wound re-opened 2021 Patient arrived via: ambulatory with [facility]/Nursing Facility: N/A Consent captured for debridement per and good until Special Instructions: Exam chair Anticoagulant Therapy: ASA 81mg Living Situation (ie... 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 Provider seeing patient: Aniyah Irizarry CNP WOUND ASSESSMENT: Refer to Provider's Wound Assessment Note VASCULAR ASSESSMENT BY PROVIDER: N/A CHF History: denies EDEMA: N/A wound located on scalp Right foot: Right calf: Left foot : Left Calf: Other: MEASUREMENTS: in CM wound located on scalp Right Calf: Right Ankle: Left Calf: Left Ankle: Length: WOUND PHOTOGRAPHY: Yes x 1 DEBRIDEMENT PROCEDURE BY PROVIDER: Anesthetic Used: N/A Wound # 1 Other procedure: N/A Specimen collected: N/A WOUND TREATMENT PER MD ORDER: Wounds cleansed by mechanical debridement to allow provider to visualize wound base WOUND # 1 - LOCATION: Right Frontal Scalp (2021) L: 0.3 cm x W: 0.3 cm x D: Dry, stable scab Debridement by Provider: N/A Cleansed with: NS Applied to yarelis-wound skin: Vaseline Applied to wound bed: Vaseline Covered and secured with: N/A COMPRESSION: N/A SPECIAL NEEDS: Coordination of care N/A Emotional support N/A OR 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 - Continue aggressive nutritional support for optimal wound healing. - [facility] [place]. EDUCATION: The patient/family was instructed how to cleanse the wound(s). Visual demonstration on how to applythe dressing with teach back method. Signs & symptoms of infection were reviewed: Increased redness, swelling, pain, green/yellow drainage, fever and/or chills would all need to be evaluated by a Physician. Patient received typed home-going wound care instructions and has expressed intent to comply. OTHER EDUCATION: Provider discussed PRN follow-up. Education performed regarding lymphedema/edema: Elevation of extremity above the heart for 30 minutes three times daily and as needed Exercise such as writing the ABC's with your toes in the air, walking and/or calf pumps Wearing compression as ordered by provider Diet controlling of sodium as instructed by provider Use of medication to help control edema. ____ UNIVERSAL PROTOCOL / SAFETY CHECKLIST: N/A ____ Current HBOT Status: Active or Complete - see screening below WOUND CENTER HYPERBARIC OXYGEN THERAPY SCREENING 1. Is the patient diabetic? (If No, skip to question 5) Yes 2. Does the patient have a lower extremity wound? No 3. Is there exposed/involved tendon or bone? No 4. Has the wound been present for 30 days? Yes If Yes to ALL questions above, consult the Hyperbaric Center 5. Has the patient been diagnosed with osteomyelitis? Yes 6. Has the patient had a previous skin graft or flap at the wound? No 7. Has the patient had or been offered vascular intervention/evaluation? No 8. Does the patient have a wound at an amputation site? No 9. Has the patient had radiation therapy at the site of the problem? No If Yes to ANY of questions 5-9, consult the Hyperbaric Center Christy Velasco RN/LT documented in this [facility] Miscellaneous Notes* Telephone Encounter - Joceline Lofton RRT - 07/22/2022 1:20 PM EDT Images from the original note were not included. RESPIRATORY THERAPY AT HOME PAP MONITORING Patient Name: Merle Bradley Today's Date: 07/22/2022 60-90 day follow up Initial usage > 50%, Compliance Standards not Met < 70% , and AHI < 5 Pt contacted via [employer] for pap follow up documented in this [facility]Mer[facility]23 NoteHNO ID: [id number] Author: Aniyah Irizarry APRN.PAINT BOOTH OPERATOR Service: ? 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 Pt underwent craniotomy 07/2020 for clipping of a distal left LUBA aneurysm. She developed delayed wound dehiscence at the right side of the bicoronal incision and underwent IANDD, removal of hardware, and primary closure of the site on 05/13/2021. Operative cultures grew MSSA which was treated with IV Oxacillin (completed 06/2021). Pt then noted drainage from that right side incision again in November 2021. Pt did not follow up again with neurosurgery until March 2022 (secondary to dealing with sister's cancer diagnosis in late 2021). Labs and MRI of the brain was then ordered. Pt had neurosurgery follow up 04/11/2022, 05/09/2022, and 06/06/2022 for the wound. Neurosurgery referred her to plastic surgery for the wound. Pt self referred to [facility] for a second opinion regarding management/care of the wound. Location: right frontal scalp Onset: Nov 2021 Aggravating factors: Diabetes mellitus and Surgical Wound etiology: Surgical Associated pain with wound: Mild tenderness to touch Relieving factors for wound pain: n/a Treatments: Current: Eliza Past: Gentamicin ointment, Eliza, normal saline PAST MEDICAL HISTORY Diagnosis Date Diabetes mellitus (HCC) 11/2019 GERD (gastroesophageal reflux disease) Hypertension Irritable bowel syndrome with diarrhea Lacunar stroke (HCC) 11/2019 FABIOLA (obstructive sleep apnea) PAST SURGICAL HISTORY Procedure Laterality Date APPENDECTOMY SECTION HX COLONOSCOPY 02/16/2022 repeat in 10 years LIG/TRNSXJ FLP TUBE ABDL/VAG APPR UNI/BI PICC LINE INSERT/CONSULT 05/15/2021 PILONIDAL CYST/SINUS EXCISION 1985 TONSILLECTOMY PRIMARY/SECONDARY ALLERGIES ALLERGIES Allergen Reactions Pollen Extracts Other: See Comments Sneezing, itchy eyes CURRENT OUTPATIENT MEDICATIONS metFORMIN (GLUCOPHAGE) 500 mg tabletTake 1 tablet by mouth twice daily with meals.Disp: 180 tabletRfl: 3 carvedilol (COREG) 6.25 mg tabletTake 1 tablet by mouth twice daily with meals.Disp: 180 tabletRfl: 3 lisinopril (ZESTRIL) 40 mg tabletTake 1 tablet by mouth daily at bedtime.Disp: 90 tabletRfl: 3 amLODIPine (NORVASC) 10 mg tabletTake 1 tablet by mouth once daily.Disp: 90 tabletRfl: 3 gentamicin 0.1 % ointmentApply to wound twice a day as directedDisp: 15 gRfl: 1 aspirin, enteric coated (ASPIRIN, ENTERIC COATED) 81 mg EC tabletTake 81 mg by mouth once daily.Disp: Rfl: CPAP/BIPAP/OTHERType .CPAPSettings into a note to see current settings/supplies/DME information.Disp: 1 EachRfl: 0 atorvastatin (LIPITOR) 40 mg tabletTake 1 tablet by mouth once daily.Disp: 90 tabletRfl: 3 iv contrast (will be provided with radiology test)MRI Brain Inject, intravenously, once for 1 dose.No IV access, insert saline lock prior to beginning of sedation, infusion, injection of imaging exam.Discontinue saline lock post exam. If Pt. has a central line or IVAD, may access for administration according to line specific nursing protocol.Once exam is complete flush line and de-access according to line specific nursing protocol in the MR contrast administration guidelines linkDisp: 1 EachRfl: 0 hydrALAZINE (APRESOLINE) 50 mg tabletTake 1 tablet by mouth three times daily.Disp: 270 tabletRfl: 3 ONETOUCH ULTRA2 METERDisp: Rfl: blood sugar diagnostic (BLOOD GLUCOSE TEST) test stripTest blood sugar(s) 2 times daily. Dx: Type 2 DM - Uncontrolled E11.65 Insulin: No DX: E11.9Disp: 50 StripRfl: 11 Lancets lancetsTest blood sugar(s) 2 times daily. Dx: Type 2 DM - Uncontrolled E11.65 Insulin: No DX:E11.9Disp: 100 EachRfl: 11 acetaminophen (TYLENOL) 325 mg tabletTake 2 tablets by mouth every 4 hours as needed for pain.Disp: Rfl: Ascorbic Acid 1,000 mg tabletTake 1,000 mg by mouth once daily. PRNDisp: Rfl: cholecalciferol, vitamin D3, (VITAMIN D3 ORAL)Take by mouth. 2000 international unit(s) dailyDisp: Rfl: vitamin B complex (B COMPLEX ORAL)Take 1 tablet by mouth once daily. Disp: Rfl: FAMILY HISTORY Problem Relation Age of Onset No Ocular Disease Mother Alcohol abuse Mother Cataract Father Hypertension Father Social History Tobacco Use Smoking status: Former Packs/day: 0.30 Years: 15.00 Pack years: 4.50 Types: Cigarettes Start date: 07/14/1978 Quit date: 05/21/2000 Years since quittin.1 Smokeless tobacco: Never Vaping Use Vaping Use: Some days (more content not included)...[facility] [id number] NoteHNO ID: [id number] Author: Aniyah Irizarry APRN.PAINT BOOTH OPERATOR Service: ? 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 Pt underwent craniotomy 07/2020 for clipping of a distal left LUBA aneurysm. She developed delayed wound dehiscence at the right side of the bicoronal incision and underwent IANDD, removal of hardware, and primary closure of the site on 05/13/2021. Operative cultures grew MSSA which was treated with IV Oxacillin (completed 06/2021). Pt then noted drainage from that right side incision again in November 2021. Pt did not follow up again with neurosurgery until March 2022 (secondary to dealing with sister's cancer diagnosis in late 2021). Labs and MRI of the brain was then ordered. Pt had neurosurgery follow up 04/11/2022, 05/09/2022, and 06/06/2022 for the wound. Neurosurgery referred her to plastic surgery for the wound. Pt self referred to [facility] for a second opinion regarding management/care of the wound. Pt completed the course of Doxycycline for positive wound culture a few days ago. She also has been applying the topical Gentamicin ointment twice a day to the wound as prescribed (d/t wound culture results). Location: right frontal scalp Onset: Nov 2021 Aggravating factors: Diabetes mellitus and Surgical Wound etiology: Surgical Associated pain with wound: Yes, pt reports some tenderness to touch Relieving factors for wound pain: n/a Treatments: Current: Gentamicin 0.1% ointment Past: Eliza, normal saline PAST MEDICAL HISTORY Diagnosis Date Diabetes mellitus ([facility]) 11/2019 GERD (gastroesophageal reflux disease) Hypertension Irritable bowel syndrome with diarrhea Lacunar stroke ([facility]) 11/2019 FABIOLA (obstructive sleep apnea) PAST SURGICAL HISTORY Procedure Laterality Date APPENDECTOMY SECTION HX COLONOSCOPY 02/16/2022 repeat in 10 years LIG/TRNSXJ FLP TUBE ABDL/VAG APPR UNI/BI PICC LINE INSERT/CONSULT 05/15/2021 PILONIDAL CYST/SINUS EXCISION 1985 TONSILLECTOMY PRIMARY/SECONDARY ALLERGIES ALLERGIES Allergen Reactions Pollen Extracts Other: See Comments Sneezing, itchy eyes CURRENT OUTPATIENT MEDICATIONS metFORMIN (GLUCOPHAGE) 500 mg tabletTake 1 tablet by mouth twice daily with meals.Disp: 180 tabletRfl: 3 carvedilol (COREG) 6.25 mg tabletTake 1 tablet by mouth twice daily with meals.Disp: 180 tabletRfl: 3 lisinopril (ZESTRIL) 40 mg tabletTake 1 tablet by mouth daily at bedtime.Disp: 90 tabletRfl: 3 amLODIPine (NORVASC) 10 mg tabletTake 1 tablet by mouth once daily.Disp: 90 tabletRfl: 3 gentamicin 0.1 % ointmentApply to wound twice a day as directedDisp: 15 gRfl: 1 aspirin, enteric coated (ASPIRIN, ENTERIC COATED) 81 mg EC tabletTake 81 mg by mouth once daily.Disp: Rfl: atorvastatin (LIPITOR) 40 mg tabletTake 1 tablet by mouth once daily.Disp: 90 tabletRfl: 3 hydrALAZINE (APRESOLINE) 50 mg tabletTake 1 tablet by mouth three times daily.Disp: 270 tabletRfl: 3 blood sugar diagnostic (BLOOD GLUCOSE TEST) test stripTest blood sugar(s) 2 times daily. Dx: Type 2 DM - Uncontrolled E11.65 Insulin: No DX: E11.9Disp: 50 StripRfl: 11 acetaminophen (TYLENOL) 325 mg tabletTake 2 tablets by mouth every 4 hours as needed for pain.Disp: Rfl: Ascorbic Acid 1,000 mg tabletTake 1,000 mg by mouth once daily. PRNDisp: Rfl: cholecalciferol, vitamin D3, (VITAMIN D3 ORAL)Take by mouth. 2000 international unit(s) dailyDisp: Rfl: vitamin B complex (B COMPLEX ORAL)Take 1 tablet by mouth once daily. Disp: Rfl: CPAP/BIPAP/OTHERType .CPAPSettings into a note to see current settings/supplies/DME information.Disp: 1 EachRfl: 0 iv contrast (will be provided with radiology test)MRI Brain Inject, intravenously, once for 1 dose.No IV access, insert saline lock prior to beginning of sedation, infusion, injection of imaging exam.Discontinue saline lock post exam. If Pt. has a central line or IVAD, may access for administration according to line specific nursing protocol.Once exam is complete flush line and de-access according to line specific nursing protocol in the MR contrast administration guidelines linkDisp: 1 EachRfl: 0 ONETOUCH ULTRA2 METERDisp: Rfl: Lancets lancetsTest blood sugar(s) 2 times daily. Dx: Type 2 DM - Uncontrolled E11.65 Insulin: No DX:E11.9Disp: 100 EachRfl: 11 FAMILY HISTORY Problem Relation Age of Onset No Ocular Disease Mother Alcohol abuse Mother Cataract Father Hypertension Father Social History Tobacco Use Smoki (more content not included)...[facility] [id number] History of Present illness Narrative* Aniyah Irizarry, CERTIFIED ACTIVITIES DIRECTOR.PAINT BOOTH OPERATOR - 06/29/2022 2:42 PM EDT Images from the original note were not included. WOUND CENTER PROGRESS NOTE PATIENT NAME: Merle Bradley DATE OF FOLLOW UP: 06/29/2022 REASON FOR FOLLOW UP: scalp wound HISTORY OF PRESENT ILLNESS: Merle Bradley is a 61 year old y/o female w/ PMH HTN, DMII, IBS, FABIOLA, lacunar stroke (2019), s/pbicoronal craniotomy for clipping of distal left LUBA aneurysm (07/21/2020who presents for wound assessment and treatment evaluation of right frontal scalp wound. Pt underwent craniotomy 07/2020 for clipping of a distal left LUBA aneurysm. She developed delayed wound dehiscence at the right side of thebicoronal incision and underwent I&D, removal of hardware, and primary closure of the site on 05/13/2021. Operative cultures grew MSSA which was treated with IV Oxacillin (completed 06/2021). Pt then noted drainage from that right side incision again in November 2021. Pt did not follow up again with neurosurgery until March 2022 (secondary to dealing with sister's cancer diagnosis in late 2021). Labs and MRI of the brain was then ordered. Pt had neurosurgery follow up 04/11/2022, 05/09/2022, and 06/06/2022 for the wound. Neurosurgery referred her to plastic surgery for the wound. Pt self referred to [facility] for a second opinion regarding management/care of the wound. Pt completed the course of Doxycycline for positive wound culture a few days ago. She also has beenapplying the topical Gentamicin ointment twice a day to the wound as prescribed (d/t wound culture results). Location: right frontal scalp Onset: Nov 2021 Aggravating factors: Diabetes mellitus and Surgical Wound etiology: Surgical Associated pain with wound: Yes, pt reports some tenderness to touch Relieving factors for wound pain: n/a Treatments: Current: Gentamicin 0.1% ointment Past: Eliza, normal saline PAST MEDICAL HISTORY Diagnosis Date Diabetes mellitus (HCC) 11/2019 GERD (gastroesophageal reflux disease) Hypertension Irritable bowel syndrome with diarrhea Lacunar stroke ([facility]) 11/2019 FABIOLA (obstructive sleep apnea) PAST SURGICAL HISTORY Procedure Laterality Date APPENDECTOMY SECTION HX COLONOSCOPY 02/16/2022 repeat in 10 years LIG/TRNSXJ FLP TUBE ABDL/VAG APPR UNI/BI PICC LINE INSERT/CONSULT 05/15/2021 PILONIDAL CYST/SINUS EXCISION 1985 TONSILLECTOMY PRIMARY/SECONDARY <AGE 12 ALLERGIES ALLERGIES Allergen Reactions Pollen Extracts Other: See Comments Sneezing, itchy eyes CURRENT OUTPATIENT MEDICATIONS metFORMIN (GLUCOPHAGE) 500 mg tablet^Take 1 tablet by mouth twice daily with meals.^Disp: 180 tablet^Rfl: 3 carvedilol (COREG) 6.25 mg tablet^Take 1 tablet by mouth twice daily with meals.^Disp: 180 tablet^Rfl: 3 lisinopril (ZESTRIL) 40 mg tablet^Take 1 tablet by mouth daily at bedtime.^Disp: 90 tablet^Rfl: 3 amLODIPine (NORVASC) 10 mg tablet^Take 1 tablet by mouth once daily.^Disp: 90 tablet^Rfl: 3 gentamicin 0.1 % ointment^Apply to wound twice a day as directed^Disp: 15 g^Rfl: 1 aspirin, enteric coated (ASPIRIN, ENTERIC COATED) 81 mg EC tablet^Take 81 mg by mouth once daily.^Disp: ^Rfl: atorvastatin (LIPITOR) 40 mg tablet^Take 1 tablet by mouth once daily.^Disp: 90 tablet^Rfl: 3 hydrALAZINE (APRESOLINE) 50 mg tablet^Take 1 tablet by mouth three times daily.^Disp: 270 tablet^Rfl: 3 blood sugar diagnostic (BLOOD GLUCOSE TEST) test strip^Test blood sugar(s) 2 times daily. Dx: Type 2 DM - Uncontrolled E11.65 Insulin: No DX: E11.9^Disp: 50 Strip^Rfl: 11 acetaminophen (TYLENOL) 325 mg tablet^Take 2 tablets by mouth every 4 hours as needed for pain.^Disp: ^Rfl: Ascorbic Acid 1,000 mg tablet^Take 1,000 mg by mouth once daily. PRN^Disp: ^Rfl: cholecalciferol, vitamin D3, (VITAMIN D3 ORAL)^Take by mouth. 2000 international unit(s) daily^Disp: ^Rfl: vitamin B complex (B COMPLEX ORAL)^Take 1 tablet by mouth once daily. ^Disp: ^Rfl: CPAP/BIPAP/OTHER^Type .CPAPSettings into a note to see current settings/supplies/DME information.^Disp: 1 Each^Rfl: 0 iv contrast (will be provided with radiology test)^MRI Brain Inject, intravenously, once for 1 dose.No IV access, insert saline lock prior to beginning of sedation, infusion, injection of imaging exam.Discontinue saline lock post exam. If Pt. has a central line or IVAD, may access for administration according to line specific nursing protocol.Once exam is complete flush line and de-access according to line specific nursing protocol in the MR contrast administration guidelines link^Disp: 1 Each^Rfl: 0 ONETOUCH ULTRA2 METER^^Disp: ^Rfl: Lancets lancets^Test blood sugar(s) 2 times daily. Dx: Type 2 DM - Uncontrolled E11.65 Insulin: No DX:E11.9^Disp: 100 Each^Rfl: 11 FAMILY HISTORY Problem Relation Age of Onset No Ocular Disease Mother Alcohol abuse Mother Cataract Father Hypertension Father Social History Tobacco Use Smoking status: Former Packs/day: 0.30 Years: 15.00 Pack years: 4.50 Types: Cigarettes Start date: 07/14/1978 Quit date: 05/21/2000 Years since quittin.1 Smokeless tobacco: Never Vaping Use Vaping Use: Some days Substances: CBD Substance Use Topics Alcohol use: Not Currently Drug use: Not Currently Types: Marijuana Comment: medical marijuana REVIEW OF SYSTEMS: GENERAL: No weight loss, malaise or fevers RESPIRATORY: Negative for cough, hemoptysis, wheezing, COPD, dyspnea . Positive shortness of breathwith exertion. CARDIOVASCULAR: Negative for chest pain, leg swelling, hypertension, CHF or palpitations GI: No nausea, vomiting, or diarrhea MUSCULOSKELETAL: Negative for joint pain or swelling, back pain or muscle pain SKIN: Positive for wound, scalp HEMATOLOGY/LYMPHOLOGY: Negative for prolonged bleeding, bruising easily or swollen nodes ENDOCRINE: Negative for cold or heat intolerance, polyuria, polydipsia and goiter NEURO: No history of headaches, syncope, paralysis, seizures or tremors. Positive intermittent numbness/tingling of right cheek/side of mouth, right 4th/5th fingers and thumb (baseline since CVA) PHYSICAL EXAM: BP 128/79 / Pulse 85 / Resp 18 / Temp 98.2 F / SpO2 97% General appearance: Well appearing, alert, in no acute distress, well-hydrated, well nourished. Skin: Skin color, texture, turgor normal, no suspicious rashes or lesions. Positives: wound, right scalp (see wound assessment) Head: Normocephalic, no masses. No tenderness except at wound area with touch. Wound, right scalp. Eyes: Anicteric sclera. Pupils are equally round and reactive to light. Extraocular movements are intact. Lungs: normal respiratory rate and rhythm Heart: regular rate and rhythm Abdomen: soft Musculoskeletal: No joint swelling, deformity, or tenderness. CHIN freely. Neuro: Oriented X 3. Ambulatory with cane. WOUND ASSESSMENT General appearance: Well appearing, alert, in no acute distress, well-hydrated, well nourished. Skin: Skin color, texture, turgor normal, no suspicious rashes or lesions. Positives: wound, right scalp (see wound assessment) Head: Normocephalic, no masses. No tenderness except at wound area with touch. Wound, right scalp. Eyes: Anicteric sclera. Pupils are equally round and reactive to light. Extraocular movements are intact. Lungs: normal respiratory rate and rhythm Heart: regular rate and rhythm Abdomen: soft Musculoskeletal: No joint swelling, deformity, or tenderness. CHIN freely. Neuro: Oriented X 3. Ambulatory with cane. DATA PHOTOGRAPHY: A photo was taken of the patient's wound(s). Photos can be found under the [facility] images tab on [facility]. The purpose of the photo(s) is to optimize the patient's medical care and allow a visual aid to their wound evaluation and progress. The photo(s) are not intended for publication, education, or research. If the use of the photo is desired in any additional way, other than for the above outlined purposes, then an additional consentfor the intended use will need to be obtained by the requesting provider. Photo was taken of: right frontal scalp Verbal consent was obtained: yes WBC (k/uL) Date Value 04/05/2022 8.76 06/21/2021 8.31 06/14/2021 8.01 07/21/2020 8.12 07/14/2020 6.93 11/27/2019 10.99 Hemoglobin (g/dL) Date Value 04/05/2022 14.8 06/21/2021 13.7 06/14/2021 14.1 07/21/2020 12.3 07/14/2020 14.3 11/27/2019 15.7 PT INR (no units) Date Value 07/14/2020 1.1 11/11/2019 1.0 INR (no units) Date Value 05/11/2021 1.0 Sodium (mmol/L) Date Value 04/05/2022 138 05/18/2021 134 05/17/2021 133 07/21/2020 139 07/14/2020 138 11/27/2019 135 Potassium (mmol/L) Date Value 04/05/2022 4.2 05/18/2021 4.2 05/17/2021 4.2 07/21/2020 4.4 07/14/2020 4.0 11/27/2019 4.6 CO2 (mmol/L) Date Value 04/05/2022 22 05/18/2021 24 05/17/2021 23 07/21/2020 19 07/14/2020 21 11/27/2019 21 BUN (mg/dL) Date Value 04/05/2022 13 05/18/2021 15 05/17/2021 17 07/21/2020 10 07/14/2020 10 11/27/2019 13 AST (U/L) Date Value 06/21/2021 18 06/14/2021 17 06/07/2021 15 11/25/2019 23 11/24/2019 26 ALT (U/L) Date Value 06/21/2021 21 06/14/2021 21 06/07/2021 20 11/25/2019 24 11/24/2019 28 Bilirubin, Total (mg/dL) Date Value 06/21/2021 0.4 06/14/2021 0.4 06/07/2021 0.6 11/25/2019 0.8 11/24/2019 0.7 Alkaline Phosphatase (U/L) Date Value 06/21/2021 76 06/14/2021 87 06/07/2021 89 11/25/2019 66 11/24/2019 71 Sed Rate, Westergren (mm/hr) Date Value 04/05/2022 2 05/11/2021 8 Lactate (mmol/L) Date Value 07/21/2020 1.1 07/21/2020 1.7 07/21/2020 1.4 Vancomycin (ug/mL) Date Value 05/15/2021 18.3 MICROBIOLOGY: Reviewed; wound culture (06/15/2022)- Moderate Staph aureus, rare Coag negative staphylococcus IMAGING: Reviewed; MRI of brain (05/03/2022)- osseous irregularity of the bifrontal craniotomy bone flap with subjacent dural enhancement...findings nonspecific, could relate to granulation and/or chronic infection. No discrete abscess or subjacent parenchymal findings. IMPRESSION/RECOMMENDATIONS The patient's age and other co morbidities are likely to impact wound and skin integrity Additional impediments to healing Diabetic: Yes Anticoagulation: Aspirin Antibiotics: No Steroids: No CM 1. Skin ulcer of scalp, limited to breakdown of skin (HCC) 2. Hx craniotomy Comment: No s/s infection. Plan: - discontinue use of Gentamicin ointment - Cleanse wound and periwound skin with Vashe solution and gauze. To the wound apply saline moistened Eliza. Leave MEDICAL DEVICE SALES (due location and surrounding hair; dressing will not adhere). Change every other day and prn. - Continue aggressive nutritional support to assist wound healing. - Follow up with neurosurgery as directed - Follow up in wound center in 2 weeks I discussed the plan in detail with the patient and the patient verbalizes understanding and is in agreement. Aniyah Irizarry APRN, PAINT BOOTH OPERATOR, CWS Certified Block Making Machine Operator June 29, 2022 documented in this encounterMer[facility]04-19-2023 Instructions* Patient Instructions* Audrey Sands RN - 06/29/2022 2:09 PM EDT WOUND CARE INSTRUCTIONS- Merle Bradley Wound location: Right frontal scalp 1. Wash your hands with soap and water before and after wound care. 2. Gather all supplies needed. 3. Apply Vashe soak: apply Vashe moistened gauze to the wound & allow to soak 5- 10 min, remove while gently wiping the wound clean 4. Apply saline moistened Eliza (collagen) to the wound base. 5.. Change your dressing every other day To give your wound the best chance to heal: - Eat three balanced meals daily focusing on the protein - Control swelling by elevating the extremity above your heart - Control your blood sugar. Keep blood sugar less than 200 - Complete your wound care instructions - Vitamin C 500 mg twice daily - Multiple Vitamin Daily - Drink a protein shake daily Report any of the following changes to the wound center: [phone] or go to the Emergency Department: Fever or chills Increased drainage Green or yellow drainage Foul odor Increased pain Hardness around the wound Redness, warmth or swelling of the surrounding tissue Color change to the wound Plan: Follow-up in the wound center with Aniyah in 2 weeks Continue aggressive nutritional support for optimal wound healing Imaging Scheduling: Call [phone] to schedule your MRI or Cat Scan. Aniyah Irizarry CNP/kb/sv documented in this encounterMercy [facility]04-19-2023 Nurse Note* Audrey Sands RN - 06/29/2022 2:08 PM EDT Nursing Documentation Pertinent Medical History: DM, HTN, FABIOLA, lacunar stroke 2019 and incidental finding of brain aneurysm Wound Etiology according to patient: craniotomy July 2020 for clipping of brain aneurysm Wound dehiscence, I&D and hardware removal May 2021 & IV antibiotics; Wound re-opened 2021 Patient arrived via: ambulatory with cane Home Care Company/Nursing Facility: N/A Consent captured for debridement per and good until Special Instructions: exam chair Anticoagulant Therapy: ASA 81mg Living Situation (ie... 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 Provider seeing patient: Aniyah Irizarry CNP WOUND ASSESSMENT: Refer to Provider's Wound Assessment Note VASCULAR ASSESSMENT BY PROVIDER: N/A CHF History: denies EDEMA: N/A wound located on scalp Right foot: Right calf: Left foot : Left Calf: Other: MEASUREMENTS: in CM wound located on scalp Right Calf: Right Ankle: Left Calf: Left Ankle: Length: WOUND PHOTOGRAPHY: YES x1 DEBRIDEMENT PROCEDURE BY PROVIDER: Anesthetic Used:n/a Wound # 1 Other procedure: N/A Specimen collected: WOUND TREATMENT PER MD ORDER: Wounds cleansed by mechanical debridement to allow provider to visualize wound base WOUND # 1 LOCATION: Right frontal scalp (2021) L: 0.4 cm x W: 0.4 cm x D: 0.4 cm Debridement by Provider: N/A Post Debridement Measurements: L: cm x W: cm x D: cm Cleansed with: Vashe Applied to yarelis-wound skin: Applied to wound bed: Eliza Covered and secured with: N/A Other: COMPRESSION: N/A SPECIAL NEEDS: Coordination of care N/A Emotional support N/A OR set-up N/A 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 EDUCATION: The patient/family was instructed how to cleanse the wound(s). Visual demonstration on how to applythe dressing with teach back method. Signs & symptoms of infection were reviewed: Increased redness, swelling, pain, green/yellow drainage, fever and/or chills would all need to be evaluated by a Physician. Patient received typed home-going wound care instructions and has expressed intent to comply. OTHER EDUCATION: Education performed regarding lymphedema/edema: Elevation of extremity above the heart for 30 minutes three times daily and as needed Exercise such as writing the ABC's with your toes in the air, walking and/or calf pumps Wearing compression as ordered by provider Diet controlling of sodium as instructed by provider Use of medication to help control edema. ____ UNIVERSAL PROTOCOL / SAFETY CHECKLIST: N/A Current HBOT Status: Active or Complete - see screening below WOUND CENTER HYPERBARIC OXYGEN THERAPY SCREENING 1. Is the patient diabetic? (If No, skip to question 5) Yes 2. Does the patient have a lower extremity wound? No 3. Is there exposed/involved tendon or bone? No 4. Has the wound been present for 30 days? Yes If Yes to ALL questions above, consult the Hyperbaric Center 5. Has the patient been diagnosed with osteomyelitis? Yes 6. Has the patient had a previous skin graft or flap at the wound? No 7. Has the patient had or been offered vascular intervention/evaluation? No 8. Does the patient have a wound at an amputation site? No 9. Has the patient had radiation therapy at the site of the problem? No If Yes to ANY of questions 5-9, consult the Hyperbaric Center Audrey Sands RN/DARLIN documented in this encounterMer[facility]04-14-2023 Miscellaneous Notes* Telephone Encounter - Carole Harris RN - 06/24/2022 2:21 PM EDT Left message regarding reminder for stress test on Monday and given instructions. documented in this encounterMercy [facility]04-10-2023 Miscellaneous Notes* Telephone Encounter - Aniyah Irizarry APRN.CNP - 06/20/2022 4:[address] TCT to pt to discuss wound culture results. + MSSA. Doxycycline 100mg twice a day x 7 days. Change wound care tx to Gentamicin 0.1% ointment twice a day until next wound center visit on 06/29/2022. Ptverbalized understanding. All questions answered. Aniyah Irizarry CNP documented in this encounterMercy Health [facility]04-05-2023 NoteHNO ID: [id number] Author: Aniyah Irizarry APRN.ADAN Service: ? Author Type: Nurse Practitioner Type: Progress Notes Filed: 06/15/2022 1:11 PM Note Text: WOUND CENTER INITIAL VISIT PATIENT NAME: Merle Bradley DATE OF VISIT: 06/15/2022 REASON FOR VISIT: scalp wound HISTORY OF PRESENT ILLNESS: Merle Bradley is a 61 year old y/o female w/ PMH HTN, DMII, IBS, FABIOLA, lacunar stroke (2019), s/p bicoronal craniotomy for clipping of distal left LUBA aneurysm (07/21/2020), who presents for initial Wound Center visit. Per review of EMR and pt report, pt underwent craniotomy 07/2020 for clipping of a distal left LUBA aneurysm. She developed delayed wound dehiscence at the right side of the bicoronal incision and underwent IANDD, removal of hardware, and primary closure of the site on 05/13/2021. Operative cultures grew MSSA which was treated with IV Oxacillin (completed ). Pt then noted drainage from that right side incision again in November 2021. Pt did not follow up again with neurosurgery until March 2022 (secondary to dealing with sister's cancer diagnosis in late 2021). Labs and MRI of the brain was then ordered. Pt had neurosurgery follow up 04/11/2022, 05/09/2022, and 06/06/2022 for the wound. Pt reports the wound does drain some yellow/straw colored fluid then sometimes scabs over. She cleanses the wound with normal saline as instructed by neurosurgery, but no other wound care. She reports she washes her hair only once a week and is very careful not to massage or scrub around the wound area. Neurosurgery referred her to plastic surgery for the wound. Pt presents today to [place] wound center for evaluation of the wound. She is self referred for a second opinion regarding management/care of the wound. Location: right frontal scalp Onset: Nov 2021 Aggravating factors: Diabetes mellitus and Surgical Wound etiology: Surgical Associated pain with wound: Yes, pt reports some tenderness to touch Relieving factors for wound pain: n/a Treatments: Current: normal saline Past: n/a PAST MEDICAL HISTORY Diagnosis Date Diabetes mellitus (HCC) 11/2019 GERD (gastroesophageal reflux disease) Hypertension Irritable bowel syndrome with diarrhea Lacunar stroke (HCC) 11/2019 FABIOLA (obstructive sleep apnea) PAST SURGICAL HISTORY Procedure Laterality Date APPENDECTOMY SECTION HX COLONOSCOPY 02/16/2022 repeat in 10 years LIG/TRNSXJ FLP TUBE ABDL/VAG APPR UNI/BI PICC LINE INSERT/CONSULT 05/15/2021 PILONIDAL CYST/SINUS EXCISION 1985 TONSILLECTOMY PRIMARY/SECONDARY ALLERGIES ALLERGIES Allergen Reactions Pollen Extracts Other: See Comments Sneezing, itchy eyes CURRENT OUTPATIENT MEDICATIONS aspirin, enteric coated (ASPIRIN, ENTERIC COATED) 81 mg EC tabletTake 81 mg by mouth once daily.Disp: Rfl: CPAP/BIPAP/OTHERType .CPAPSettings into a note to see current settings/supplies/DME information.Disp: 1 EachRfl: 0 atorvastatin (LIPITOR) 40 mg tabletTake 1 tablet by mouth once daily.Disp: 90 tabletRfl: 3 hydrALAZINE (APRESOLINE) 50 mg tabletTake 1 tablet by mouth three times daily.Disp: 270 tabletRfl: 3 acetaminophen (TYLENOL) 325 mg tabletTake 2 tablets by mouth every 4 hours as needed for pain.Disp: Rfl: metFORMIN (GLUCOPHAGE) 500 mg tabletTake 1 tablet by mouth twice daily with meals.Disp: 180 tabletRfl: 3 lisinopril (ZESTRIL, PRINIVIL) 40 mg tabletTake 1 tablet by mouth daily at bedtime.Disp: 90 tabletRfl: 3 carvedilol (COREG) 6.25 mg tabletTake 1 tablet by mouth twice daily with meals.Disp: 180 tabletRfl: 3 amLODIPine (NORVASC) 10 mg tabletTake 1 tablet by mouth once daily.Disp: 90 tabletRfl: 3 Ascorbic Acid 1,000 mg tabletTake 1,000 mg by mouth once daily. PRNDisp: Rfl: cholecalciferol, vitamin D3, (VITAMIN D3 ORAL)Take by mouth. 2000 international unit(s) dailyDisp: Rfl: vitamin B complex (B COMPLEX ORAL)Take 1 tablet by mouth once daily. Disp: Rfl: iv contrast (will be provided with radiology test)MRI Brain Inject, intravenously, once for 1 dose.No IV access, insert saline lock prior to beginning of sedation, infusion, injection of imaging exam.Discontinue saline lock post exam. If Pt. has a central line or IVAD, may access for administration according to line specific nursing protocol.Once exam is complete flush line and de-access according to line specific nursing protocol in the MR contrast administration guidelines linkDisp: 1 EachRfl: 0 ONETOUCH ULTRA2 METERDisp: Rfl: blood sugar diagnostic (BLOOD GLUCOSE TEST) test stripTest blood sugar(s) 2 times daily. Dx: Type 2 DM - Uncontrolled E11.65 Insulin: No DX: E11.9Disp: 50 StripRfl: 11 Lancets lancetsTest blood sugar(s) 2 times daily. Dx: Type 2 DM - Uncontrolled E11.65 Insulin: No DX:E11.9Disp: 100 EachRfl: 11 FAMILY HISTORY Problem Relation Age of Onset No Ocular Disease Mother Alcohol abuse Mother Cataract Father Hypertension Father Social (more content not included)...[phone] History of Present illness Narrative* Aniyah Irizarry, ALICE.PAINT BOOTH OPERATOR - 06/15/2022 9:02 AM EDT Images from the original note were not included. WOUND CENTER INITIAL VISIT PATIENT NAME: Merle Bradley DATE OF VISIT: 06/15/2022 REASON FOR VISIT: scalp wound HISTORY OF PRESENT ILLNESS: Merle Bradley is a 61 year old y/o female w/ PMH HTN, DMII, IBS, FABIOLA, lacunar stroke (2019), s/pbicoronal craniotomy for clipping of distal left LUBA aneurysm (07/21/2020), who presents for initialound Center visit. Per review of EMR and pt report, pt underwent craniotomy 07/2020 for clipping ofa distal left LUBA aneurysm. She developed delayed wound dehiscence at the right side of the bicoronal incision and underwent I&D, removal of hardware, and primary closure of the site on 05/13/2021.Operative cultures grew MSSA which was treated with IV Oxacillin (completed ). Pt then noted drainage from that right side incision again in November 2021. Pt did not follow up again with neurosurgery until March 2022 (secondary to dealing with sister's cancer diagnosis in late 2021). Labs and MRI of the brain was then ordered. Pt had neurosurgery follow up 04/11/2022, 05/09/2022, and 06/06/2022 for the wound. Pt reports the wound does drain some yellow/straw colored fluid then sometimes scabs over. She cleanses the wound with normal saline as instructed by neurosurgery, but no other wound care. She reports she washes her hair only once a week and is very careful not to massage or scrub around the wound area. Neurosurgery referred her to plastic surgery for the wound. Pt presents today to [place] wound center for evaluation of the wound. She is self referred for a second opinion regarding management/care of the wound. Location: right frontal scalp Onset: Nov 2021 Aggravating factors: Diabetes mellitus and Surgical Wound etiology: Surgical Associated pain with wound: Yes, pt reports some tenderness to touch Relieving factors for wound pain: n/a Treatments: Current: normal saline Past: n/a PAST MEDICAL HISTORY Diagnosis Date Diabetes mellitus (HCC) 11/2019 GERD (gastroesophageal reflux disease) Hypertension Irritable bowel syndrome with diarrhea Lacunar stroke (HCC) 11/2019 FABIOLA (obstructive sleep apnea) PAST SURGICAL HISTORY Procedure Laterality Date APPENDECTOMY SECTION HX COLONOSCOPY 02/16/2022 repeat in 10 years LIG/TRNSXJ FLP TUBE ABDL/VAG APPR UNI/BI PICC LINE INSERT/CONSULT 05/15/2021 PILONIDAL CYST/SINUS EXCISION 1985 TONSILLECTOMY PRIMARY/SECONDARY <AGE 14 ALLERGIES ALLERGIES Allergen Reactions Pollen Extracts Other: See Comments Sneezing, itchy eyes CURRENT OUTPATIENT MEDICATIONS aspirin, enteric coated (ASPIRIN, ENTERIC COATED) 81 mg EC tablet^Take 81 mg by mouth once daily.^Disp: ^Rfl: CPAP/BIPAP/OTHER^Type .CPAPSettings into a note to see current settings/supplies/DME information.^Disp: 1 Each^Rfl: 0 atorvastatin (LIPITOR) 40 mg tablet^Take 1 tablet by mouth once daily.^Disp: 90 tablet^Rfl: 3 hydrALAZINE (APRESOLINE) 50 mg tablet^Take 1 tablet by mouth three times daily.^Disp: 270 tablet^Rfl: 3 acetaminophen (TYLENOL) 325 mg tablet^Take 2 tablets by mouth every 4 hours as needed for pain.^Disp: ^Rfl: metFORMIN (GLUCOPHAGE) 500 mg tablet^Take 1 tablet by mouth twice daily with meals.^Disp: 180 tablet^Rfl: 3 lisinopril (ZESTRIL, PRINIVIL) 40 mg tablet^Take 1 tablet by mouth daily at bedtime.^Disp: 90 tablet^Rfl: 3 carvedilol (COREG) 6.25 mg tablet^Take 1 tablet by mouth twice daily with meals.^Disp: 180 tablet^Rfl: 3 amLODIPine (NORVASC) 10 mg tablet^Take 1 tablet by mouth once daily.^Disp: 90 tablet^Rfl: 3 Ascorbic Acid 1,000 mg tablet^Take 1,000 mg by mouth once daily. PRN^Disp: ^Rfl: cholecalciferol, vitamin D3, (VITAMIN D3 ORAL)^Take by mouth. 2000 international unit(s) daily^Disp: ^Rfl: vitamin B complex (B COMPLEX ORAL)^Take 1 tablet by mouth once daily. ^Disp: ^Rfl: iv contrast (will be provided with radiology test)^MRI Brain Inject, intravenously, once for 1 dose.No IV access, insert saline lock prior to beginning of sedation, infusion, injection of imaging exam.Discontinue saline lock post exam. If Pt. has a central line or IVAD, may access for administration according to line specific nursing protocol.Once exam is complete flush line and de-access according to line specific nursing protocol in the MR contrast administration guidelines link^Disp: 1 Each^Rfl: 0 ONETOUCH ULTRA2 METER^^Disp: ^Rfl: blood sugar diagnostic (BLOOD GLUCOSE TEST) test strip^Test blood sugar(s) 2 times daily. Dx: Type 2 DM - Uncontrolled E11.65 Insulin: No DX: E11.9^Disp: 50 Strip^Rfl: 11 Lancets lancets^Test blood sugar(s) 2 times daily. Dx: Type 2 DM - Uncontrolled E11.65 Insulin: No DX:E11.9^Disp: 100 Each^Rfl: 11 FAMILY HISTORY Problem Relation Age of Onset No Ocular Disease Mother Alcohol abuse Mother Cataract Father Hypertension Father Social History Tobacco Use Smoking status: Former Packs/day: 0.30 Years: 15.00 Pack years: 4.50 Types: Cigarettes Start date: 07/14/1978 Quit date: 05/21/2000 Years since quittin.0 Smokeless tobacco: Never Vaping Use Vaping Use: Some days Substances: CBD Substance Use Topics Alcohol use: Not Currently Drug use: Not Currently Types: Marijuana Comment: medical marijuana REVIEW OF SYSTEM: GENERAL: No weight loss, malaise or fevers RESPIRATORY: Negative for cough, hemoptysis, wheezing, COPD, dyspnea . Positive shortness of breathwith exertion. CARDIOVASCULAR: Negative for chest pain, leg swelling, hypertension, CHF or palpitations GI: No nausea, vomiting, or diarrhea MUSCULOSKELETAL: Negative for joint pain or swelling, back pain or muscle pain SKIN: Positive for wound, scalp HEMATOLOGY/LYMPHOLOGY: Negative for prolonged bleeding, bruising easily or swollen nodes ENDOCRINE: Negative for cold or heat intolerance, polyuria, polydipsia and goiter NEURO: No history of headaches, syncope, paralysis, seizures or tremors. Positive intermittent numbness/tingling of right cheek/side of mouth, right 4th/5th fingers and thumb (baseline since CVA) PHYSICAL EXAM: BP 112/74 / Pulse 80 / Resp 18 / Temp 98.3 F / SpO2 96% General appearance: Well appearing, alert, in no acute distress, well-hydrated, well nourished. Skin: Skin color, texture, turgor normal, no suspicious rashes or lesions. Positives: wound, right scalp (see wound assessment) Head: Normocephalic, no masses. No tenderness except at wound area with touch. Wound, right scalp. Eyes: Anicteric sclera. Pupils are equally round and reactive to light. Extraocular movements are intact. Lungs: normal respiratory rate and rhythm Heart: regular rate and rhythm Abdomen: soft Musculoskeletal: No joint swelling, deformity, or tenderness. CHIN freely. Neuro: Oriented X 3. Ambulatory with cane. WOUND ASSESSMENT Wound 1: Location: right frontal scalp Type: surgical Stage: NA Exposed structure:None Progress: Initial visit Wound measurements (cm): 0.4 x 0.4 x 0.3 Full thickness- Yes Tunneling/undermining: none Wound tissue color: 100% red Periwound tissue: dry and intact, scar tissue; no erythema, no edema, no induration Drainage: serous, small amount Drainage odor: none DATA PHOTOGRAPHY: yes A photo was taken of the patient's wound(s). Photos can be found under the [facility] images tab on [facility]. The purpose of the photo(s) is to optimize the patient's medical care and allow a visual aid to their wound evaluation and progress. The photo(s) are not intended for publication, education, or research. If the use of the photo is desired in any additional way, other than for the above outlined purposes, then an additional consentfor the intended use will need to be obtained by the requesting provider. Photo was taken of: right frontal scalp Verbal consent was obtained: yes WBC (k/uL) Date Value 04/05/2022 8.76 06/21/2021 8.31 06/14/2021 8.01 07/21/2020 8.12 07/14/2020 6.93 11/27/2019 10.99 Hemoglobin (g/dL) Date Value 04/05/2022 14.8 06/21/2021 13.7 06/14/2021 14.1 07/21/2020 12.3 07/14/2020 14.3 11/27/2019 15.7 PT INR (no units) Date Value 07/14/2020 1.1 11/11/2019 1.0 INR (no units) Date Value 05/11/2021 1.0 Sodium (mmol/L) Date Value 04/05/2022 138 05/18/2021 134 05/17/2021 133 07/21/2020 139 07/14/2020 138 11/27/2019 135 Potassium (mmol/L) Date Value 04/05/2022 4.2 05/18/2021 4.2 05/17/2021 4.2 07/21/2020 4.4 07/14/2020 4.0 11/27/2019 4.6 CO2 (mmol/L) Date Value 04/05/2022 22 05/18/2021 24 05/17/2021 23 07/21/2020 19 07/14/2020 21 11/27/2019 21 BUN (mg/dL) Date Value 04/05/2022 13 05/18/2021 15 05/17/2021 17 07/21/2020 10 07/14/2020 10 11/27/2019 13 AST (U/L) Date Value 06/21/2021 18 06/14/2021 17 06/07/2021 15 11/25/2019 23 11/24/2019 26 ALT (U/L) Date Value 06/21/2021 21 06/14/2021 21 06/07/2021 20 11/25/2019 24 11/24/2019 28 Bilirubin, Total (mg/dL) Date Value 06/21/2021 0.4 06/14/2021 0.4 06/07/2021 0.6 11/25/2019 0.8 11/24/2019 0.7 Alkaline Phosphatase (U/L) Date Value 06/21/2021 76 06/14/2021 87 06/07/2021 89 11/25/2019 66 11/24/2019 71 Sed Rate, Kaileyren (mm/hr) Date Value 04/05/2022 2 05/11/2021 8 Lactate (mmol/L) Date Value 07/21/2020 1.1 07/21/2020 1.7 07/21/2020 1.4 Vancomycin (ug/mL) Date Value 05/15/2021 18.3 MICROBIOLOGY: Reviewed IMAGING: Reviewed; MRI of brain (05/03/2022)- osseous irregularity of the bifrontal craniotomy bone flap with subjacent dural enhancement...findings nonspecific, could relate to granulation and/or chronic infection. No discrete abscess or subjacent parenchymal findings. IMPRESSION/RECOMMENDATIONS The patient's age and other co morbidities are likely to impact wound and skin integrity Additional impediments to healing Diabetic: Yes Anticoagulation: Aspirin Antibiotics: No Steroids: No Encounter Diagnosis ICD-10-CM 1. Skin ulcer of scalp, limited to breakdown of skin ([facility]) L98.491 ABSCESS AND WOUND CULTURE WITH GRAM STAIN 2. Hx craniotomy Plan: - Wound culture for C&S, d/t nonhealing wound with persistent drainage - Cleanse wound and periwound skin with Vashe solution and gauze. To the wound apply saline moistened Eliza (stimulate granulation tissue formation and decrease bacterial burden). Leave MEDICAL DEVICE SALES (due location and surrounding hair; dressing will not adhere). Change every other day and prn. - Aggressive nutritional support to assist wound healing. - Follow up with neurosurgery as directed - Follow up in wound center in 2 weeks I discussed the plan in detail with the patient and the patient verbalizes understanding and is in agreement. Aniyah Irizarry APRN, PAINT BOOTH OPERATOR, CWS Certified Block Making Machine Operator June 15, 2022 documented in this encounterMercy [facility]04-05-2023 Instructions* Patient Instructions* Joann Hayes RN - 06/15/2022 8:22 AM EDT WOUND CARE INSTRUCTIONS- Merle Bradley Wound location: Right frontal scalp 1. Wash your hands with soap and water before and after wound care. 2. Gather all supplies needed. 3. Apply Vashe soak: apply Vashe moistened gauze to the wound & allow to soak 5- 10 min, remove while gently wiping the wound clean 4. Apply saline moistened Eliza (collagen) to the wound base. 5.. Change your dressing 3 times per week To give your wound the best chance to heal: - Eat three balanced meals daily focusing on the protein - Control swelling by elevating the extremity above your heart - Control your blood sugar. Keep blood sugar less than 200 - Complete your wound care instructions - Vitamin C 500 mg twice daily - Multiple Vitamin Daily - Drink a protein shake daily Report any of the following changes to the wound center: [phone] or go to the Emergency Department: Fever or chills Increased drainage Green or yellow drainage Foul odor Increased pain Hardness around the wound Redness, warmth or swelling of the surrounding tissue Color change to the wound Plan: Follow-up in the wound center with Aniyah in 2 weeks Wound culture obtained today Continue aggressive nutritional support for optimal wound healing Imaging Scheduling: Call [phone] to schedule your MRI or Cat Scan. Aniyah Irizarry CNP/huong/kb documented in this encounterMer[facility]04-05-[facility]23 Nurse Note* Joann Hayes RN - 06/15/2022 8:22 AM EDT Nursing Documentation Pertinent Medical History: DM, HTN, FABIOLA, lacunar stroke 2019 and incidental finding of brain aneurysm Wound Etiology according to patient: craniotomy July 2020 for clipping of brain aneurysm Wound dehiscence, I&D and hardware removal May 2021 & IV antibiotics; Wound re-opened 2021 Patient arrived via: ambulatory with cane Home Care Company/Nursing Facility: N/A Consent captured for debridement per and good until Special Instructions: exam chair Anticoagulant Therapy: ASA 81mg Living Situation (ie... 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 Provider seeing patient: Aniyah Irizarry CNP WOUND ASSESSMENT: Refer to Provider's Wound Assessment Note VASCULAR ASSESSMENT BY PROVIDER: N/A CHF History: denies EDEMA: N/A wound located on scalp Right foot: Right calf: Left foot : Left Calf: Other: MEASUREMENTS: in CM wound located on scalp Right Calf: Right Ankle: Left Calf: Left Ankle: Length: WOUND PHOTOGRAPHY: YES x 2 DEBRIDEMENT PROCEDURE BY PROVIDER: Anesthetic Used: 2% lidogel applied by Teena Sands RN per provider Wound # 1 Other procedure: N/A Specimen collected: C&S 06/15/22 WOUND TREATMENT PER MD ORDER: Wounds cleansed by mechanical debridement to allow provider to visualize wound base WOUND # 1 LOCATION: Right frontal scalp (2021) L: 0.4 cm x W: 0.4 cm x D: 0.3cm Debridement by Provider: N/A Post Debridement Measurements: L: cm x W: cm x D: cm Cleansed with: Vashe Applied to yarelis-wound skin: Applied to wound bed: Eliza Covered and secured with: N/A Other: COMPRESSION: N/A SPECIAL NEEDS: Coordination of care N/A Emotional support N/A OR set-up N/A Farmworker Field Crop N/A Incontinence needs N/A DISCHARGED in stable condition to: home ambulatory with cane Global surgical period dates if applicable: N/A PLAN/ORDERS: Follow-up in the wound center with Aniyah in 2 weeks Wound culture obtained today Continue aggressive nutritional support for optimal wound healing Imaging Scheduling: Call [phone] to schedule your MRI or Cat Scan. EDUCATION: The patient/family was instructed how to cleanse the wound(s). Visual demonstration on how to applythe dressing with teach back method. Signs & symptoms of infection were reviewed: Increased redness, swelling, pain, green/yellow drainage, fever and/or chills would all need to be evaluated by a Physician. Patient received typed home-going wound care instructions and has expressed intent to comply. OTHER EDUCATION: Provider discussed need for wound culture today; discussed wound care: cleansing and dressing with collagen; nutrional needs discussed and sign/symptoms infection reviewed. Education performed regarding lymphedema/edema: Elevation of extremity above the heart for 30 minutes three times daily and as needed Exercise such as writing the ABC's with your toes in the air, walking and/or calf pumps Wearing compression as ordered by provider Diet controlling of sodium as instructed by provider Use of medication to help control edema. ____ UNIVERSAL PROTOCOL / SAFETY CHECKLIST: N/A Current HBOT Status: Active or Complete - see screening below WOUND CENTER HYPERBARIC OXYGEN THERAPY SCREENING 1. Is the patient diabetic? (If No, skip to question 5) Yes 2. Does the patient have a lower extremity wound? No 3. Is there exposed/involved tendon or bone? No 4. Has the wound been present for 30 days? Yes If Yes to ALL questions above, consult the Hyperbaric Center 5. Has the patient been diagnosed with osteomyelitis? Yes 6. Has the patient had a previous skin graft or flap at the wound? No 7. Has the patient had or been offered vascular intervention/evaluation? No 8. Does the patient have a wound at an amputation site? No 9. Has the patient had radiation therapy at the site of the problem? No If Yes to ANY of questions 5-9, consult the Hyperbaric Center Joann Hayes RN/dotty documented in this encounterMer[facility]04-01-2023 Procedure note* June LOLA Edmonds - 09/06/2022 9:14 AM EDTAssociated Order(s): NITRIC OXIDE, EXHALED RESPIRATORY THERAPY ORAL EXHALED NITRIC OXIDE SERVICE DATE: 09/06/2022 SERVICE TIME: 9:14 AM Oral Exhaled Nitric Oxide measurement: 14.0 (ppb) Normal: Adult 5-20 ppb, pediatric (<12 years) 5-15 ppb High Normal / Increased: Adult 20-35 ppb, pediatric (<12 years) 15-25 ppb Moderately raised exhaled Nitric Oxide may indicate underlying inflammation, but note that: Cold and influenza can raise exhaled Nitric Oxide and some patients have higher baseline exhaled Nitric Oxide levels than others. High: Adult >35 ppb, pediatric (<12 years) >25 ppb Indicative of ongoing eosinophilic inflammation. Symptomatic patient likely to respond to steroids. Possible causes (if already on steroids): Poor compliance, recent allergen exposure, steroid dose inadequate, and steroid resistance. Note that not all patients with high exhaled nitric oxide levels display symptoms. Oral Exhaled Nitric Oxide measurement (Previous Encounters) Test Date Oral Exhaled Nitric Oxide (ppb) 09/06/2022 14.0 NAME: Aydee Edmonds RRT PATIENT NAME: Merle Bradley DATE: September 06, 2022 TIME: 9:14 AM documented in this encounterMercy [facility]03-30-2023 Miscellaneous Notes* Telephone Encounter - Ciara Leyva RN - 06/09/2022 3:54 PM EDT See below, patient states she has a hx of having a lot of surgeries, has felt SOB for years, I thought it was because of the surgeries I had had Patient will be seen for below tomorrow. Reason for Disposition [1] MILD longstanding difficulty breathing AND [2] SAME as normal Answer Assessment - Initial Assessment Questions 1. RESPIRATORY STATUS: Describe your breathing? (e.g., wheezing, shortness of breath, unable to speak, severe coughing) Patient gets SOB, has to rest after longs periods of exertion 2. ONSET: When did this breathing problem begin? Has been going on for years 3. PATTERN Does the difficult breathing come and go, or has it been constant since it started? Depending on activity 4. SEVERITY: How bad is your breathing? (e.g., mild, moderate, severe) - MILD: No SOB at rest, mild SOB with walking, speaks normally in sentences, can lie down, no retractions, pulse < 100. - MODERATE: SOB at rest, SOB with minimal exertion and prefers to sit, cannot lie down flat, speaksin phrases, mild retractions, audible wheezing, pulse 100-120. - SEVERE: Very SOB at rest, speaks in single words, struggling to breathe, sitting hunched forward,retractions, pulse > 120 Mild 5. RECURRENT SYMPTOM: Have you had difficulty breathing before? If Yes, ask: When was the last time? and What happened that time? Yes, ongoing 6. CARDIAC HISTORY: Do you have any history of heart disease? (e.g., heart attack, angina, bypasssurgery, angioplasty) Denies 7. LUNG HISTORY: Do you have any history of lung disease? (e.g., pulmonary embolus, asthma, emphysema) Denies 8. CAUSE: What do you think is causing the breathing problem? Unknown 9. OTHER SYMPTOMS: Do you have any other symptoms? (e.g., dizziness, runny nose, cough, chest pain, fever) Denies 10. O2 SATURATION MONITOR: Do you use an oxygen saturation monitor (pulse oximeter) at home? If Yes, What is your reading (oxygen level) today? What is your usual oxygen saturation reading? (e.g., 95%) Not available 11. : Is there any chance you are ? When was your last menstrual period? N/A 12. TRAVEL: Have you traveled out of the country in the last month? (e.g., travel history, exposures) N/A Protocols used: Breathing [id number] documented in this encounterMercy [facility]03-30-2023 Miscellaneous Notes* Telephone Encounter - Ciara Leyva RN - 06/09/2022 3:53 PM EDT See triage note * Telephone Encounter - Mirian Iraheta LPN - 06/09/2022 2:17 PM EDT Please review and advise. 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 Remote lacunar stroke in 2019 with residual right-sided mouth and hand numbness Hypertension Diabetes Recommendations: Referral to plastic surgery placed - call [phone] Continue to monitor incision at home. Call the office right away at [phone] if you notice: More drainage or bleeding from the incision More redness or openings in or around the incision Foul odor or pus coming from the incision Fever above 101.0 F or shaking chills Continue wound care at home with cleansing the site daily with guaze dampened with saline and allow to air dry. Cerebral angiogram at 5 years post aneurysm clipping (07/2025) Optimization of aneurysm risk factors Blood pressure control: goal BP less than 140/90 Refrain from cigarette smoking Return to clinic in 6 weeks for wound check documented in this encounterMercy Health [facility]03-27-2023 History of Present illness Narrative* Maryam Salmeron APRN.CNP - 06/06/2022 1:00 PM EDT Images from the original note were not included. [facility] Established Visit Merle Dana Bradley CC#: [id number] Date of Service: 06/06/2022 Primary Care Provider: Yessenia Rodriguez MD FOLLOW UP VISIT Merlekenny Blackmonkb is a 60 year old female, who presents for neurologic evaluation following bicoronal craniotomy for clipping of distal left LUBA aneurysm 07/21/2020 complicated by delayed wound dehiscence s/p washout, drainage, removal of hardware, primary closure on 05/13/2021. PCP: Yessenia Rodriguez MD Collaborating Physician: Dr. Adilene Lino Reason for visit: Unruptured aneurysm History of Event: 60 yof with PMH DM, HTN, IBS, FABIOLA, lacunar stroke (2019) who was found to have incidental left LUBA aneurysm during hospitalization for stroke. She underwent diagnostic cerebral angiogram demonstrating an irregular 4 mm left LUBA aneurysm for which she underwent bicoronal craniotomy for clipping of distal left LUBA aneurysm 07/21/[address] Lino. She developed delayed wound dehiscence and underwent I&D, removal of hardware, and primary closure on 05/13/2021. Operative cultures grew MSSA and patient was discharged on IV oxacillin (completed 06/2021). She noted new incisional drainage to the right-side of her bicoronal incision starting in November 2021. She had delayed follow-up secondary to sister's cancer diagnosis in late 2021. She presented to clinic in March 2022 for wound check with plan for MRI brain and bloodwork. She underwent brain MRI and was referred to Plastic Surgery. She is here today for wound check. Interval History: She presents to clinic alone today She notes drainage the previous 2 days from incision site, today with crusting and no persistent drainage. Described drainage as clear yellow that she feels is darker than previous drainage. She reports washing her hair a couple days beforehand. Notes numbness and tenderness to touch at incision site. Feels increased tenderness to open wound area that she attributes to new CPAP machine- started wearing mask approximately a week ago. Reports stressors at home living with her daughter who wants her to move out. Denies fevers or chills. History of heart murmur. Has had increased shortness of breath noted since her stroke in 2019. 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 Awaiting interview in a couple months to determine eligibility. No paternal family history of brain aneurysms, unknown maternal history aside from mother with alcoholism Handedness: right-handed Past Medical History: ACTIVE PROBLEM LIST Hypertension, Essential Anxiety Cva (Cerebral Vascular Accident) (Hcc) Diabetes Mellitus Type 2, Controlled, Without Complications (Hcc) Hyperlipidemia Ataxia Due to Acute Cerebrovascular Disease Obesity, Class II, Bmi 35-39.9 Intracranial Aneurysm Fabiola (Obstructive Sleep Apnea) Gerd (Gastroesophageal Reflux Disease) Irritable Bowel Syndrome With Diarrhea Back Pain Seborrheic Dermatitis Lacunar Stroke (Hcc) Hyperlipidemia Associated With Type 2 Diabetes Mellitus (Hcc) Hx of Craniotomy Imbalance Wound Dehiscence PAST SURGICAL HISTORY Procedure Laterality Date APPENDECTOMY SECTION HX COLONOSCOPY 02/16/2022 repeat in 10 years LIG/TRNSXJ FLP TUBE ABDL/VAG APPR UNI/BI PICC LINE INSERT/CONSULT 05/15/2021 PILONIDAL CYST/SINUS EXCISION 1984 TONSILLECTOMY PRIMARY/SECONDARY <AGE 12 Allergies: Patient has no known allergies. Medications: Current Outpatient Medications Medication Sig aspirin, enteric coated (ASPIRIN, ENTERIC COATED) 81 mg EC tablet Take 81 mg by mouth once daily. CPAP/BIPAP/OTHER Type .CPAPSettings into a note to see current settings/supplies/DME information. atorvastatin (LIPITOR) 40 mg tablet Take 1 tablet by mouth once daily. iv contrast (will be provided with radiology test) MRI Brain Inject, intravenously, once for 1 dose.No IV access, insert saline lock prior to beginning of sedation, infusion, injection of imaging exam.Discontinue saline lock post exam. If Pt. has a central line or IVAD, may access for administration according to line specific nursing protocol.Once exam is complete flush line and de-access according to line specific nursing protocol in the MR contrast administration guidelines link hydrALAZINE (APRESOLINE) 50 mg tablet Take 1 tablet by mouth three times daily. ONETOUCH ULTRA2 METER blood sugar diagnostic (BLOOD GLUCOSE TEST) test strip Test blood sugar(s) 2 times daily. Dx: Type 2 DM - Uncontrolled E11.65 Insulin: No DX: E11.9 Lancets lancets Test blood sugar(s) 2 times daily. Dx: Type 2 DM - Uncontrolled E11.65 Insulin: No DX:E11.9 acetaminophen (TYLENOL) 325 mg tablet Take 2 tablets by mouth every 4 hours as needed for pain. metFORMIN (GLUCOPHAGE) 500 mg tablet Take 1 tablet by mouth twice daily with meals. lisinopril (ZESTRIL, PRINIVIL) 40 mg tablet Take 1 tablet by mouth daily at bedtime. carvedilol (COREG) 6.25 mg tablet Take 1 tablet by mouth twice daily with meals. amLODIPine (NORVASC) 10 mg tablet Take 1 tablet by mouth once daily. Ascorbic Acid 1,000 mg tablet Take 1,000 mg by mouth once daily. PRN cholecalciferol, vitamin D3, (VITAMIN D3 ORAL) Take by mouth. 2000 international unit(s) daily vitamin B complex (B COMPLEX ORAL) Take 1 tablet by mouth once daily. Current Facility-Administered Medications Medication Dose Route Frequency perflutren lipid microspheres 1.3 mL in NaCl (PF) 0.9% 10 mL injection (DEFINITY) INTRAVENOUS DIRECTED PRN sodium chloride 0.9 % (flush) 10 mL (BD POSIFLUSH) 10 mL INTRAVENOUS DIRECTED PRN Social History Tobacco Use Smoking status: Former Packs/day: 0.30 Years: 15.00 Pack years: 4.50 Types: Cigarettes Start date: 07/14/1978 Quit date: 05/21/2000 Years since quittin.0 Smokeless tobacco: Never Vaping Use Vaping Use: Some days Substances: CBD Substance Use Topics Alcohol use: Not Currently Drug use: Not Currently Types: Marijuana Comment: medical marijuana Family History: Subarachnoid hemorrhage: None Aneurysms: None Stroke: Yes, grandmother, great aunts, father Vascular malformations: None Other neurologic diseases: Yes, seizure (sister) Unsure of maternal history, mom with history of alcoholism and depression Review of Systems Constitutional: Negative Eyes: Negative HENT: Negative Cardiovascular: Negative Respiratory: + shortness of breath with exertion GI: Negative : Negative Musculoskeletal: Negative Integumentary: Right craniotomy incision with serous drainage Heme/Lymph: Negative Allergy/Immunologic: Negative Neurologic: +intermittent tingling and numbness in R mouth, thumb/4th/5th fingers (baseline s/p CVA) Psychiatric: Negative Patient Entered Questionnaires PROMIS/NeuroQoL Score Percentiles Physical Health 05/30/2022 05/08/2022 05/02/2022 Physical Function Percentile 12 - 7 Sleep Percentile 12 14 - Fatigue Percentile 10 - 16* Pain Interference Percentile 16* 16* - PROMIS SOCIAL ROLE SCORE 05/30/2022 05/02/2022 03/16/2022 Social Role Satisfaction Percentile 14 21* 24* Mental Health 05/30/2022 05/08/2022 05/02/2022 NeuroQol Cognitive Function Percentile 12 - 46 General Self-Efficacy Percentile 8 14 - PROMIS Global Health Scale 03/20/2022 12/07/2021 06/09/2021 Physical Health Percentile 15 10 31 Mental Health Percentile 5 5 26* Percentiles provide an indication of how a patient's score ranks in relation to the [place] general population. > 31st percentile is within normal limits or better * < 31st percentile is at least SD worse than population, which may be clinically relevant < 16th percentile is at least 1 SD worse than population and warrants attention Depression Screening: PHQ-9 03/20/2022 04/22/2022 05/30/2022 Score 8 8 15 Self-Harm Response 0 0 0 PHQ-9 Scores: PHQ-9 Self-Harm (Item 9) Response: 0 - 9 No to Mild depression 0 - Not at all 10 - 14 Moderate depression 1 - Several Days > 15 Severe depression 2 - More than half the days 3 - Nearly every day Sleep Apnea Probability Score 07/11/2020 Sleep Apnea Screen V2 35.64 (Sleep study not recommended) PHYSICAL EXAMINATION BP 126/78 Pulse 78 Temp 37 C (98.6 F) (Temporal) Resp 18 Ht 162.6 cm (5' 4) Wt 102.5 kg (226 lb) LMP 05/11/2009 SpO2 95% BMI 38.79 kg/m General: Well-developed, well-nourished, in no acute distress. HEENT: Normocephalic, atraumatic. Sclerae anicteric. Lungs: Respirations even and unlabored. Neurological: Awake, alert, oriented to person, place, and time. Speech fluent, no dysarthria. Goodattention and insight into illness. Cranial Nerves: Extraocular movements grossly intact. Facial movements appear normal and symmetric. Motor: No pronator drift or tremor. Moves all extremities freely. Gait: Ambulates easily into the office without assistance. Incision: Dried thick serosanguinous drainage overlying depression on right skull along craniotomy incision without erythema. Before cleansing: After cleansing with normal saline: IMAGING MRI brain w/wo contrast (05/03/2022): Osseous irregularity of the bifrontal craniotomy bone flap, with subjacent dural enhancement. These findings are nonspecific, could relate to granulation and/or chronic infection. Otherwise no discrete abscess or subjacent acute parenchymal findings. 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 CTH (12/27/2021): Changes of midline frontal craniotomy for LUBA aneurysm clipping. Heterogeneous irregularity of the calvarial flap to the right of midline without definitive overlying scalp swellingor edema. Comparison should be made with any available recent prior imaging to assess stability of this finding which could be infectious in etiology given reported overlying scalp wound. Otherwise no acute intracranial abnormality. DSA (07/21/2020): No residual filling of the left LUBA aneurysm status-post surgical clipping. DSA (01/08/2020): Left anterior cerebral artery irregular 4.5 mm x 2.6 mm x 3.9 mm aneurysm arisingfrom the pericallosal-callosomarginal junction. LABS Latest Reference Range & Units 04/05/22 10:21 Sodium 136 - 144 mmol/L 138 Potassium 3.7 - 5.1 mmol/L 4.2 Chloride 97 - 105 mmol/L 105 CO2 22 - 30 mmol/L 22 BUN 7 - 21 mg/dL 13 Creatinine 0.58 - 0.96 mg/dL 0.65 Glucose 74 - 99 mg/dL 132 (H) Calcium 8.5 - 10.2 mg/dL 9.7 Anion Gap 9 - 18 mmol/L 11 eGFR >=60 mL/min/1.73m 102 UltraSens C-Reactive Protein <3.1 mg/L 1.6 Cholesterol, Total <200 mg/dL 116 Triglyceride <150 mg/dL 140 Fasting Time hrs 12 HDL Cholesterol >39 mg/dL 50 LDL Cholesterol <100 mg/dL 38 VLDL Cholesterol <30 mg/dL 28 TC:HDL Ratio <5.10 2.32 LDL:HDL Ratio <2.54 0.76 Non HDL Cholesterol <130 mg/dL 66 Prealbumin 17 - 36 mg/dL 30 Hemoglobin A1C 4.3 - 5.6 % 6.1 (H) Estimated Average Glucose mg/dL 128 WBC 3.70 - 11.00 k/uL 8.76 RBC 3.90 - 5.20 m/uL 4.96 Hemoglobin 11.5 - 15.5 g/dL 14.8 Hematocrit 36.0 - 46.0 % 42.8 Platelet Count 150 - 400 k/uL 270 MCV 80.0 - 100.0 fL 86.3 MCH 26.0 - 34.0 pg 29.8 MCHC 30.5 - 36.0 g/dL 34.6 MPV 9.0 - 12.7 fL 10.9 RDW-CV 11.5 - 15.0 % 13.4 DTYPE Auto Neut% % 43.0 Abs Neut (ANC) 1.45 - 7.50 k/uL 3.78 Lymph% % 48.3 Abs Lymph 1.00 - 4.00 k/uL 4.23 (H) Wells% % 5.6 Abs Wells <0.87 k/uL 0.49 Eosin% % 2.1 Abs Eosin <0.46 k/uL 0.18 Baso% % 0.5 Abs Baso <0.11 k/uL 0.04 Immature Gran % % 0.5 IMMATURE GRANS (ABS) <0.10 k/uL 0.04 NRBC /100 WBC 0.0 Absolute nRBC <0.01 k/uL <0.01 WSR 0 - 20 mm/hr 2 (H): Data is abnormally high IMPRESSION 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 Remote lacunar stroke in 2020 Hypertension Diabetes Recommendations: Referral to Plastic Surgery Continue to monitor incision at home. Call the office right away at [phone] if you notice: More drainage or bleeding from the incision More redness or openings in or around the incision Foul odor or pus coming from the incision Fever above 101.0 F or shaking chills 3. Continue wound care at home with cleansing the site daily with guaze dampened with saline and allow to air dry. 4. Cerebral angiogram at 5 years post aneurysm clipping (07/2025) 5. Optimization of aneurysm risk factors Blood pressure control: goal BP less than 140/90 Refrain from cigarette smoking 6. Return to clinic in 6 weeks for wound check I spent a total of 18 minutes on the date of the service which included preparing to see the patient, [id number] patient care, completing clinical documentation, obtaining and/or reviewing separately obtained history, performing a medically appropriate examination, counseling and educating the pat ient/family/caregiver, communicating with other HCPs (not separately reported), communicating results to the patient/family/caregiver, and care coordination (not separately reported). Some elements may have been copied from a previous note and have been updated/reviewed where appropriate. All portions reflect current medical decision making from today. SIGNATURE Maryam Salmeron APRN.ADAN 06/06/2022 documented in this encounterMercy Health [facility]03-21-2023 History of Present illness Narrative* Joceline Lofton RRT - 05/31/2022 4:01 PM EDT Images from the original note were not included. RESPIRATORY THERAPY AT HOME PAP MONITORING Patient Name: Merle Bradley Today's Date: 05/31/2022 3 - 5 day follow up Initial usage > 50% and Compliance Standards not Met < 70% Pt contacted via [employer] for follow up documented in this encounterMercy Health [facility]03-20-2023 Miscellaneous Notes* Telephone Encounter - Mirian Iraheta LPN - 05/30/2022 12:36 PM EDT Request completed and faxed. * Telephone Encounter - Yessenia Rodriguez MD - 05/30/2022 12:26 PM EDT Done. * Telephone Encounter - Mirian Iraheta LPN - 05/30/2022 10:12 AM EDT Type of letter/form/fax request - Home Health Care Orders Form received from [facility] on 05/27/22 floor and placed on MD desk () for completion. Completed form needs to be faxed to [phone]. Route to MD when form completed for processing documented in this encounterMercy Health [facility]03-16-2023 History of Present illness Narrative* Joceline Lofton RRT - 05/26/2022 3:30 PM EDT RESPIRATORY THERAPY AT HOME NEW PATIENT SET UP VIRTUAL OR IN PERSON: Virtual Name of machine: Resmed airsense 10 Mode: Auto CPAP Pressure settings: 8-15 [id number] Interface: airfit N30i standard Heated humidity: Yes Patient instruction included equipment operation and safety, application of interface, manufacturercleaning instructions, and insurance compliance guidelines. Clinical Respiratory Medication Reconciliation: No respiratory medications PLAN Problem/Need: Positive pressure therapy required. Goal: Patient will verbalize understanding of PAP machine operation and safety, application of pap mask, compliance requirements, and lithography contact worker cleaning instructions. Action/Intervention: Educate on use of machine operation and safety, application of pap mask, compliance requirements, and lithography contact worker cleaning instructions. Adequately verbalizes and demonstrates understanding of equipment. TRANSITION TO EQUIPMENT MAINTENANCE documented in this encounterMer[facility]03-13-2023 History of Present illness Narrative* Kimmy Ghotra RRT - 05/23/2022 4:55 PM EDT RESPIRATORY THERAPY AT HOME MASK REFIT Patient Name: Merle Bradley Today's Date: 05/23/2022 Comments Patient seen today for a mask refit, patient wants to try the N30 Medium nasal mask. Arranging for mask to be shipped to patient. documented in this encounterMercy Health [facility]03-08-2023 Miscellaneous Notes* Telephone Encounter - Erma Ayers RN - 05/18/2022 11:57 AM EST Reached out to patient, no answer. Left VM reminding patient to schedule a follow-up appointment with Maryam and plastic surgery. Left number to call to schedule. Erma Ayers RN documented in this encounterMercy Health [facility]02-27-2023 History of Present illness Narrative* Maryam Salmeron APRN.PAINT BOOTH OPERATOR - 05/09/2022 1:56 PM EST [facility] Established Visit Merle Bradley CC#: [id number] Date of Service: 02/19/2022 Primary Care Provider: Yessenia Rodriguez MD FOLLOW UP VISIT Merle Bradley is a 60 year old female, who presents for neurologic evaluation following bicoronal craniotomy for clipping of distal left LUBA aneurysm 07/21/2020 complicated by delayed wound dehiscence s/p washout, drainage, removal of hardware, primary closure on 05/13/2021. PCP: Yessenia Rodriguez MD Collaborating Physician: Dr. Adilene Lino Reason for visit: Unruptured aneurysm History of Event: 60 yof with PMH DM, HTN, IBS, FABIOLA, lacunar stroke (2019) who was found to have incidental left LUBA aneurysm during hospitalization for stroke. She underwent diagnostic cerebral angiogram demonstrating an irregular 4 mm left LUBA aneurysm for which she underwent bicoronal craniotomy for clipping of distal left LUBA aneurysm 07/21/[address] Lino. She developed delayed wound dehiscence and underwent I&D, removal of hardware, and primary closure on 05/13/2021. Operative cultures grew MSSA and patient was discharged on IV oxacillin (completed 06/2021). She noted new incisional drainage to the right-side of her bicoronal incision starting in November 2021. She had delayed follow-up secondary to sister's cancer diagnosis in late 2021. She presented to clinic in March 2022 for wound check with plan for MRI brain and bloodwork. She was last seen 4 weeks in office and underwent brain MRI last week. She is here today to review imaging and for wound check. Interval History: She presents to clinic alone today She reports previous drainage subsided for several weeks until yesterday when she noted drainage again from incision site, today with crusting and no persistent drainage. Described drainage as clear yellow that she feels is darker than previous drainage. She reports washing her hair a couple days beforehand. Notes numbness and tenderness to touch at incision site Denies fevers or chills. History of heart murmur. Has had increased shortness of breath noted since her stroke in 2019- scheduled for echocardiogram tomorrow. 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 Awaiting interview in a couple months to determine eligibility. No paternal family history of brain aneurysms, unknown maternal history aside from mother with alcoholism Handedness: right-handed Past Medical History: ACTIVE PROBLEM LIST Hypertension, Essential Anxiety Cva (Cerebral Vascular Accident) (Hcc) Diabetes Mellitus Type 2, Controlled, Without Complications (Hcc) Hyperlipidemia Ataxia Due to Acute Cerebrovascular Disease Obesity, Class II, Bmi 35-39.9 Intracranial Aneurysm Fabiola (Obstructive Sleep Apnea) Gerd (Gastroesophageal Reflux Disease) Irritable Bowel Syndrome With Diarrhea Back Pain Seborrheic Dermatitis Lacunar Stroke (Hcc) Hyperlipidemia Associated With Type 2 Diabetes Mellitus (Hcc) Hx of Craniotomy Imbalance Wound Dehiscence PAST SURGICAL HISTORY Procedure Laterality Date APPENDECTOMY SECTION HX COLONOSCOPY 02/16/2022 repeat in 10 years LIG/TRNSXJ FLP TUBE ABDL/VAG APPR UNI/BI PICC LINE INSERT/CONSULT 05/15/2021 PILONIDAL CYST/SINUS EXCISION 1984 TONSILLECTOMY PRIMARY/SECONDARY <AGE 14 Allergies: Patient has no known allergies. Medications: Current Outpatient Medications Medication Sig aspirin, enteric coated (ASPIRIN, ENTERIC COATED) 81 mg EC tablet Take 81 mg by mouth once daily. CPAP/BIPAP/OTHER Type .CPAPSettings into a note to see current settings/supplies/DME information. atorvastatin (LIPITOR) 40 mg tablet Take 1 tablet by mouth once daily. iv contrast (will be provided with radiology test) MRI Brain Inject, intravenously, once for 1 dose.No IV access, insert saline lock prior to beginning of sedation, infusion, injection of imaging exam.Discontinue saline lock post exam. If Pt. has a central line or IVAD, may access for administration according to line specific nursing protocol.Once exam is complete flush line and de-access according to line specific nursing protocol in the MR contrast administration guidelines link hydrALAZINE (APRESOLINE) 50 mg tablet Take 1 tablet by mouth three times daily. [place] InnoVenturesTOUCH ULTRA2 METER blood sugar diagnostic (BLOOD GLUCOSE TEST) test strip Test blood sugar(s) 2 times daily. Dx: Type 2 DM - Uncontrolled E11.65 Insulin: No DX: E11.9 Lancets lancets Test blood sugar(s) 2 times daily. Dx: Type 2 DM - Uncontrolled E11.65 Insulin: No DX:E11.9 acetaminophen (TYLENOL) 325 mg tablet Take 2 tablets by mouth every 4 hours as needed for pain. metFORMIN (GLUCOPHAGE) 500 mg tablet Take 1 tablet by mouth twice daily with meals. lisinopril (ZESTRIL, PRINIVIL) 40 mg tablet Take 1 tablet by mouth daily at bedtime. carvedilol (COREG) 6.25 mg tablet Take 1 tablet by mouth twice daily with meals. amLODIPine (NORVASC) 10 mg tablet Take 1 tablet by mouth once daily. Ascorbic Acid 1,000 mg tablet Take 1,000 mg by mouth once daily. PRN cholecalciferol, vitamin D3, (VITAMIN D3 ORAL) Take by mouth. 2000 international unit(s) daily vitamin B complex (B COMPLEX ORAL) Take 1 tablet by mouth once daily. Current Facility-Administered Medications Medication Dose Route Frequency perflutren lipid microspheres 1.3 mL in NaCl (PF) 0.9% 10 mL injection (DEFINITY) INTRAVENOUS DIRECTED PRN sodium chloride 0.9 % (flush) 10 mL (BD POSIFLUSH) 10 mL INTRAVENOUS DIRECTED PRN Social History Tobacco Use Smoking status: Former Packs/day: 0.30 Years: 15.00 Pack years: 4.50 Types: Cigarettes Start date: 07/14/1978 Quit date: 05/21/2000 Years since quittin.9 Smokeless tobacco: Never Vaping Use Vaping Use: Some days Substances: CBD Substance Use Topics Alcohol use: Not Currently Drug use: Not Currently Types: Marijuana Comment: medical marijuana Family History: Subarachnoid hemorrhage: None Aneurysms: None Stroke: Yes, grandmother, great aunts, father Vascular malformations: None Other neurologic diseases: Yes, seizure (sister) Unsure of maternal history, mom with history of alcoholism and depression Review of Systems Constitutional: Negative Eyes: Negative HENT: Negative Cardiovascular: Negative Respiratory: + shortness of breath with exertion GI: Negative : Negative Musculoskeletal: Negative Integumentary: Right craniotomy incision with serous drainage Heme/Lymph: Negative Allergy/Immunologic: Negative Neurologic: +intermittent tingling and numbness in R mouth, thumb/4th/5th fingers (baseline s/p CVA) Psychiatric: Negative Patient Entered Questionnaires PROMIS/NeuroQoL Score Percentiles Physical Health 05/08/2022 05/02/2022 03/16/2022 Physical Function Percentile - 7 18* Sleep Percentile 14 - 14 Fatigue Percentile - 16* 46 Pain Interference Percentile 16* - 24* PROMIS SOCIAL ROLE SCORE 05/02/2022 03/16/2022 12/06/2021 Social Role Satisfaction Percentile 21* 24* 42 Mental Health 05/08/2022 05/02/2022 03/16/2022 NeuroQol Cognitive Function Percentile - 46 38 General Self-Efficacy Percentile 14 - 18* PROMIS Global Health Scale 03/20/2022 12/07/2021 06/09/2021 Physical Health Percentile 15 10 31 Mental Health Percentile 5 5 26* Percentiles provide an indication of how a patient's score ranks in relation to the [place] general population. > 31st percentile is within normal limits or better * < 31st percentile is at least SD worse than population, which may be clinically relevant < 16th percentile is at least 1 SD worse than population and warrants attention Depression Screening: PHQ-9 12/07/2021 03/20/2022 04/22/2022 Score 15 8 8 Self-Harm Response 0 0 0 PHQ-9 Scores: PHQ-9 Self-Harm (Item 9) Response: 0 - 9 No to Mild depression 0 - Not at all 10 - 14 Moderate depression 1 - Several Days > 15 Severe depression 2 - More than half the days 3 - Nearly every day Sleep Apnea Probability Score 07/11/2020 Sleep Apnea Screen V2 35.64 (Sleep study not recommended) PHYSICAL EXAMINATION BP 123/68 Pulse 73 Temp 37.2 C (99 F) (Temporal) Resp 16 Ht 162.6 cm (5' 4) Wt 105.2 kg (232 lb) LMP 05/11/2009 SpO2 95% BMI 39.82 kg/m General: Well-developed, well-nourished, in no acute distress. HEENT: Normocephalic, atraumatic. Sclerae anicteric. Lungs: Respirations even and unlabored. Neurological: Awake, alert, oriented to person, place, and time. Speech fluent, no dysarthria. Goodattention and insight into illness. Cranial Nerves: Extraocular movements grossly intact. Facial movements appear normal and symmetric. Motor: No pronator drift or tremor. Moves all extremities freely. Gait: Ambulates easily into the office without assistance. Incision: Dried thick serosanguinous drainage overlying depression on right skull along craniotomy incision without erythema. IMAGING MRI brain w/wo contrast (05/03/2022): Osseous irregularity of the bifrontal craniotomy bone flap, with subjacent dural enhancement. These findings are nonspecific, could relate to granulation and/or chronic infection. Otherwise no discrete abscess or subjacent acute parenchymal findings. 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 CTH (12/27/2021): Changes of midline frontal craniotomy for LUBA aneurysm clipping. Heterogeneous irregularity of the calvarial flap to the right of midline without definitive overlying scalp swellingor edema. Comparison should be made with any available recent prior imaging to assess stability of this finding which could be infectious in etiology given reported overlying scalp wound. Otherwise no acute intracranial abnormality. DSA (07/21/2020): No residual filling of the left LUBA aneurysm status-post surgical clipping. DSA (01/08/2020): Left anterior cerebral artery irregular 4.5 mm x 2.6 mm x 3.9 mm aneurysm arisingfrom the pericallosal-callosomarginal junction. LABS Latest Reference Range & Units 04/05/22 10:21 Sodium 136 - 144 mmol/L 138 Potassium 3.7 - 5.1 mmol/L 4.2 Chloride 97 - 105 mmol/L 105 CO2 22 - 30 mmol/L 22 BUN 7 - 21 mg/dL 13 Creatinine 0.58 - 0.96 mg/dL 0.65 Glucose 74 - 99 mg/dL 132 (H) Calcium 8.5 - 10.2 mg/dL 9.7 Anion Gap 9 - 18 mmol/L 11 eGFR >=60 mL/min/1.73m 102 UltraSens C-Reactive Protein <3.1 mg/L 1.6 Cholesterol, Total <200 mg/dL 116 Triglyceride <150 mg/dL 140 Fasting Time hrs 12 HDL Cholesterol >39 mg/dL 50 LDL Cholesterol <100 mg/dL 38 VLDL Cholesterol <30 mg/dL 28 TC:HDL Ratio <5.10 2.32 LDL:HDL Ratio <2.54 0.76 Non HDL Cholesterol <130 mg/dL 66 Prealbumin 17 - 36 mg/dL 30 Hemoglobin A1C 4.3 - 5.6 % 6.1 (H) Estimated Average Glucose mg/dL 128 WBC 3.70 - 11.00 k/uL 8.76 RBC 3.90 - 5.20 m/uL 4.96 Hemoglobin 11.5 - 15.5 g/dL 14.8 Hematocrit 36.0 - 46.0 % 42.8 Platelet Count 150 - 400 k/uL 270 MCV 80.0 - 100.0 fL 86.3 MCH 26.0 - 34.0 pg 29.8 MCHC 30.5 - 36.0 g/dL 34.6 MPV 9.0 - 12.7 fL 10.9 RDW-CV 11.5 - 15.0 % 13.4 DTYPE Auto Neut% % 43.0 Abs Neut (ANC) 1.45 - 7.50 k/uL 3.78 Lymph% % 48.3 Abs Lymph 1.00 - 4.00 k/uL 4.23 (H) Wells% % 5.6 Abs Wells <0.87 k/uL 0.49 Eosin% % 2.1 Abs Eosin <0.46 k/uL 0.18 Baso% % 0.5 Abs Baso <0.11 k/uL 0.04 Immature Gran % % 0.5 IMMATURE GRANS (ABS) <0.10 k/uL 0.04 NRBC /100 WBC 0.0 Absolute nRBC <0.01 k/uL <0.01 WSR 0 - 20 mm/hr 2 (H): Data is abnormally high IMPRESSION 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 Remote lacunar stroke in 2020 Hypertension Diabetes Recommendations: Review with Dr Lino Continue to monitor incision at home. Call the office right away at [phone] if you notice: More drainage or bleeding from the incision More redness or openings in or around the incision Foul odor or pus coming from the incision Fever above 101.0 F or shaking chills Continue wound care at home with cleansing the site daily with guaze dampened with saline and allowto air dry. Cerebral angiogram at 5 years post aneurysm clipping (07/2025) Optimization of aneurysm risk factors Blood pressure control: goal BP less than 140/90 Refrain from cigarette smoking Return to clinic in 1 month for wound check I spent a total of 25 minutes on the date of the service which included preparing to see the patient, [id number] patient care, completing clinical documentation, obtaining and/or reviewing separately obtained history, performing a medically appropriate examination, counseling and educating the pat ient/family/caregiver, communicating with other HCPs (not separately reported), communicating results to the patient/family/caregiver, and care coordination (not separately reported). Some elements may have been copied from a previous note and have been updated/reviewed where appropriate. All portions reflect current medical decision making from today. SIGNATURE Maryam Salmeron APRN.CNP 04/11/2022 documented in this encounterMercy Health [facility]02-22-2023 Miscellaneous Notes* Telephone Encounter - Rose Tyler APRN.CNP - 05/04/2022 1:01 PM EST Please inform patient and see what they prefer to do. * Telephone Encounter - JULEE Rojas - 05/04/2022 11:57 AM EST [facility] received your PAP order. Due to a major SiBEAM recall and manufacturing shortage, we are unable to fulfill the request to provide your patient with a CPAP/BIPAP machine at this time. We will keep the request on file and provide when inventory is available or you can forward the order to another DME provider such as [employer], [employer] or [employer]. Caring for our patients is our top priority and we apologize for this delay. Thank you for your patience during this time. [phone] #1 documented in this encounterMercy Health Kings [facility] Hospital02-21-2023 NoteHNO ID: [id number] Author: BELINDA Christensen Service: Radiology Author Type: Technologist Type: Progress Notes Filed: 05/03/2022 2:12 PM Note Text: Radiology Service Progress Note DATE OF SERVICE: May 03, 2022 TIME: 2:07 PM PATIENT IDENTITY VERIFICATION COMPLETED USING TWO (2) STANDARD IDENTIFIERS: Name and Date of confirmed by patient verbally and Name and Date of confirmed by identification band. FALL SCREENING: Has the patient had 2 falls in the last year or 1 fall with injury or currently using an Ambulatory Assistive Device (Walker, Cane, Wheelchair, Crutches, etc.)? No PATIENT GENDER DATA: Female. status: : No status: NO. PATIENT RELEVANT IMPLANT DATA REVIEWED: Yes Patient has YASARGIL ANEURYSM CLIP, LAZIC L ANEURYSM implanted -5cm rule applied, patient brought into scanner on cart ALLERGIES: Reviewed and unchanged CONTRAST ALLERGY: NO. EXAM: MRI - CONTRAST TYPE: GROUP II PERIPHERAL IV DATA: Ambulatory: A peripheral IV was started in the SEE NURSE NOTE with a Angio cath: 22 gauge. RADIOLOGY DEPARTMENT: MR; Exam(s) Completed: Head: Routine Brain SIGNATURE: JARED LUJAN CT PATIENT NAME: Merle Bradley DATE: May 03, 2022 TIME: 2:07 PMGlenbeigh [id number] History of Present illness Narrative* Deepa Damon, BELINDA - 05/03/2022 1:20 PM EST Radiology Service Progress Note DATE OF SERVICE: May 03, 2022 TIME: 2:07 PM PATIENT IDENTITY VERIFICATION COMPLETED USING TWO (2) STANDARD IDENTIFIERS: Name and Date of confirmed by patient verbally and Name and Date of confirmed by identification band. FALL SCREENING: Has the patient had 2 falls in the last year or 1 fall with injury or currently using an Ambulatory Assistive Device (Walker, Cane, Wheelchair, Crutches, etc.)? No PATIENT GENDER DATA: Female. status: : No status: NO. PATIENT RELEVANT IMPLANT DATA REVIEWED: Yes Patient has YASARGIL ANEURYSM CLIP, LAZIC L ANEURYSM implanted -5cm rule applied, patient brought into scanner on cart ALLERGIES: Reviewed and unchanged CONTRAST ALLERGY: NO. EXAM: MRI - CONTRAST TYPE: GROUP II PERIPHERAL IV DATA: Ambulatory: A peripheral IV was started in the SEE NURSE NOTE with a Angio cath: 22 gauge. RADIOLOGY DEPARTMENT: MR; Exam(s) Completed: Head: Routine Brain SIGNATURE: JARED LUJAN CT PATIENT NAME: Merle Bradley DATE: May 03, 2022 TIME: 2:07 PM documented in this encounterMercy Health Kings [facility] Hospital02-21-2023 Nurse Note* Praveena Nava RN - 05/03/2022 1:20 PM EST Radiology Service Progress Note DATE OF SERVICE: May 03, 2022 TIME: 2:03 PM PATIENT WEIGHT: 226LBS PATIENT IDENTITY VERIFICATION COMPLETED USING TWO (2) STANDARD IDENTIFIERS: Name and Date of confirmed by patient verbally and Name and Date of confirmed by identification band. FALL SCREENING: Has the patient had 2 falls in the last year or 1 fall with injury or currently using an Ambulatory Assistive Device (Walker, Cane, Wheelchair, Crutches, etc.)? No PATIENT GENDER DATA: Female. status: : No status: NO. ALLERGIES: Reviewed and unchanged CONTRAST ALLERGY: No EXAM: MRI - see MRI note IV SITE: Ambulatory: A peripheral IV was started in the Left antecubital site with a Angio cath: 22gauge. IV SITE APPEARANCE: Clean,Dry and Intact SIGNATURE: Praveena Nava RN PATIENT NAME: Merle Bradley DATE: May 03, 2022 TIME: 2:03 PM documented in this encounterMercy Health Kings [facility] Hospital02-16-2023 Miscellaneous Notes* Addendum Note - Yessenia Rodriguez MD - 04/28/2022 3:19 PM ESTAddended by: YESSENIA RODRIGUEZ on: 04/28/2022 03:19 PM Modules accepted: Orders * Telephone Encounter - Yessenia Rodriguez MD - 04/28/2022 3:16 PM EST Pt does not have a cpap so cannot document benefit yet. Note from 04/23 now signed. She needs set upwith her initial cpap as ordered, never got it in the past due to ongoing medical issues which havenow resolved. * Telephone Encounter - JULEE Mccauley - 04/28/2022 2:15 PM EST [facility] has received a request to provide your patient with replacement PAP supplies or device. Prior to providing, your patient will need to complete a face to face visit and signed by physician documenting they are using their PAP device and benefiting from therapy.After this visit is complete, please submit a new prescription for 'lifetime PAP supplies'. Thank you, #1 documented in this encounterMercy Health [facility] Hospital02-01-2023 Miscellaneous Notes* Telephone Encounter - Mirian Iraheta LPN - 04/13/2022 9:57 AM EST Reviewed and sent to scanning. Mirian Iraheta LPN * Telephone Encounter - Mirian Iraheta LPN - 04/13/2022 9:07 AM EST Received Home visit from [facility]. Placed in provider's inbox for review. Route to MD for scanning. documented in this encounterMercy Health Kings Mills Hospital01-30-2023 Instructions* Patient Instructions* Maryam Salmeron APRN.ADAN - 04/11/2022 2:55 PM EST Images from the original note were not included. 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 Remote lacunar stroke in 2019 Irritable bowel syndrome Hypertension: Blood pressure goal < 130/80 Blood pressure today: LMP 05/11/2009 Diabetes: Hba1c goal < 7.0 Most recent Hba1c: Hemoglobin A1C (%) Date Value 04/05/2022 6.1 07/14/2020 6.8 Hemoglobin A1C (POCT) (%) Date Value 10/22/2020 5.9 Recommendations: MRI brain with/without contrast Continue to monitor incision at home. Call the office right away at [phone] if you notice: More drainage or bleeding from the incision More redness or openings in or around the incision Foul odor or pus coming from the incision Fever above 101.0 F or shaking chills Continue wound care at home with cleansing the site daily with guaze dampened with saline and allowto air dry. Do not wash, comb, or brush hair for 14 days. Do not use hair products for 14 days. Cerebral angiogram at 5 years post aneurysm clipping (07/2025) Optimization of aneurysm risk factors Blood pressure control: goal BP less than 140/90 Refrain from cigarette smoking Return to clinic following MRI imaging to review results and wound check Maryam Salmeron CNP Cerebrovascular [place] Nurse Practitioner [place], [place] [address] Office: [phone] Appointments: [phone] *Stroke is a medical emergency. Know the warning signs of stroke: Sudden numbness or weakness of the face, arm or leg, especially on one side of the body Sudden confusion, trouble speaking, or understanding Sudden trouble seeing in one eye, or both eyes Sudden trouble walking, dizziness, loss of balance, or coordination Sudden severe headache with no known cause *If you, or someone with you, has one or more of these signs, don't delay! Immediately call [phone], [facility] (EMS) number so an ambulance can be sent for you. Also, check the time so that you will know when the symptoms first appeared. It is very important to take immediate action, every second counts. Medical treatment may be available if action is taken early enough. documented in this encounterMercy Health [facility] Hospital01-30-2023 History of Present illness Narrative* Maryam Salmeron APRN.CNP - 04/11/2022 1:00 PM EST Images from the original note were not included. [facility] Established Visit Merle Bradley [facility]#: [id number] Date of Service: 02/19/2022 Primary Care Provider: Yessenia Rodriguez MD FOLLOW UP VISIT Merle Bradley is a 60 year old female, who presents for neurologic evaluation following bicoronal craniotomy for clipping of distal left LUBA aneurysm 07/21/2020 complicated by delayed wound dehiscence s/p washout, drainage, removal of hardware, primary closure on 05/13/2021. PCP: Yessenia Rodriguez MD Collaborating Physician: Dr. Adilene Lino Reason for visit: Unruptured aneurysm History of Event: 60 yof with PMH DM, HTN, IBS, FABIOLA, lacunar stroke (2019) who was found to have incidental left LUBA aneurysm during hospitalization for stroke. She underwent diagnostic cerebral angiogram demonstrating an irregular 4 mm left LUBA aneurysm for which she underwent bicoronal craniotomy for clipping of distal left LUBA aneurysm 07/21/[address] Lino. She developed delayed wound dehiscence and underwent I&D, removal of hardware, and primary closure on 05/13/2021. Operative cultures grew MSSA and patient was discharged on IV oxacillin (completed 06/2021). She noted new incisional drainage to the right-side of her bicoronal incision starting in November 2021. She had delayed follow-up secondary to sister's cancer diagnosis in late 2021. She presented to clinic in March 2022 for wound check with plan for MRI brain and bloodwork. She presents today for 2 week follow-up for wound check. Interval History: She presents to clinic alone today She reports continued drainage of right-side of bicoronal incision that she feels has been unchanged since prior visit. She notes similar consistency of honey-like yellow drainage. The amount of drainage remains about the same. She admits to washing her hair on Monday for an event and using hair products. Denies fevers or chills. Reports she generally doesn't feel good- unable to elaborate. Notes she has frequent shortness ofbreath with exertion. Blood work completed. 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 Awaiting interview in a couple months to determine eligibility. No paternal family history of brain aneurysms, unknown maternal history aside from mother with alcoholism Handedness: right-handed Past Medical History: ACTIVE PROBLEM LIST Hypertension, Essential Anxiety Cva (Cerebral Vascular Accident) (Hcc) Diabetes Mellitus Type 2, Controlled, Without Complications (Hcc) Hyperlipidemia Ataxia Due to Acute Cerebrovascular Disease Obesity, Class II, Bmi 35-39.9 Intracranial Aneurysm Fabiola (Obstructive Sleep Apnea) Gerd (Gastroesophageal Reflux Disease) Irritable Bowel Syndrome With Diarrhea Back Pain Seborrheic Dermatitis Lacunar Stroke (Hcc) Hyperlipidemia Associated With Type 2 Diabetes Mellitus (Hcc) Hx of Craniotomy Imbalance Wound Dehiscence PAST SURGICAL HISTORY Procedure Laterality Date APPENDECTOMY SECTION HX COLONOSCOPY 02/16/2022 repeat in 10 years LIG/TRNSXJ FLP TUBE ABDL/VAG APPR UNI/BI PICC LINE INSERT/CONSULT 05/15/2021 PILONIDAL CYST/SINUS EXCISION 1985 TONSILLECTOMY PRIMARY/SECONDARY <AGE 14 Allergies: Patient has no known allergies. Medications: Current Outpatient Medications Medication Sig iv contrast (will be provided with radiology test) MRI Brain Inject, intravenously, once for 1 dose.No IV access, insert saline lock prior to beginning of sedation, infusion, injection of imaging exam.Discontinue saline lock post exam. If Pt. has a central line or IVAD, may access for administration according to line specific nursing protocol.Once exam is complete flush line and de-access according to line specific nursing protocol in the MR contrast administration guidelines link hydrALAZINE (APRESOLINE) 50 mg tablet Take 1 tablet by mouth three times daily. ONETOUCH ULTRA2 METER blood sugar diagnostic (BLOOD GLUCOSE TEST) test strip Test blood sugar(s) 2 times daily. Dx: Type 2 DM - Uncontrolled E11.65 Insulin: No DX: E11.9 Lancets lancets Test blood sugar(s) 2 times daily. Dx: Type 2 DM - Uncontrolled E11.65 Insulin: No DX:E11.9 acetaminophen (TYLENOL) 325 mg tablet Take 2 tablets by mouth every 4 hours as needed for pain. metFORMIN (GLUCOPHAGE) 500 mg tablet Take 1 tablet by mouth twice daily with meals. lisinopril (ZESTRIL, PRINIVIL) 40 mg tablet Take 1 tablet by mouth daily at bedtime. carvedilol (COREG) 6.25 mg tablet Take 1 tablet by mouth twice daily with meals. atorvastatin (LIPITOR) 80 mg tablet Take 1 tablet by mouth once daily. amLODIPine (NORVASC) 10 mg tablet Take 1 tablet by mouth once daily. Ascorbic Acid 1,000 mg tablet Take 1,000 mg by mouth once daily. cholecalciferol, vitamin D3, (VITAMIN D3 ORAL) Take by mouth. 2000 international unit(s) daily vitamin B complex (B COMPLEX ORAL) Take 1 tablet by mouth once daily. No current facility-administered medications for this visit. Social History Tobacco Use Smoking status: Former Packs/day: 0.30 Years: 15.00 Pack years: 4.50 Types: Cigarettes Start date: 07/14/1978 Quit date: 05/21/2000 Years since quittin.8 Smokeless tobacco: Never Vaping Use Vaping Use: Some days Substances: CBD Substance Use Topics Alcohol use: Not Currently Drug use: Not Currently Types: Marijuana Comment: medical marijuana Family History: Subarachnoid hemorrhage: None Aneurysms: None Stroke: Yes, grandmother, great aunts, father Vascular malformations: None Other neurologic diseases: Yes, seizure (sister) Unsure of maternal history, mom with history of alcoholism and depression Review of Systems Constitutional: Negative Eyes: Negative HENT: Negative Cardiovascular: Negative Respiratory: + shortness of breath with exertion GI: Negative : Negative Musculoskeletal: Negative Integumentary: Right craniotomy incision with serosanguinous drainage Heme/Lymph: Negative Allergy/Immunologic: Negative Neurologic: +intermittent tingling and numbness in R mouth, thumb/4th/5th fingers (baseline s/p CVA) Psychiatric: Negative Patient Entered Questionnaires PROMIS/NeuroQoL Score Percentiles Physical Health 03/16/2022 12/07/2021 12/06/2021 Physical Function Percentile 18* - 24* Sleep Percentile 14 14 - Fatigue Percentile 46 - 18* Pain Interference Percentile 24* - 8 PROMIS SOCIAL ROLE SCORE 03/16/2022 12/06/2021 06/09/2021 Social Role Satisfaction Percentile 24* 42 50 Mental Health 03/16/2022 12/06/2021 06/09/2021 NeuroQol Cognitive Function Percentile 38 46 34 General Self-Efficacy Percentile 18* 24* 34 PROMIS Global Health Scale 03/20/2022 12/07/2021 06/09/2021 Physical Health Percentile 15 10 31 Mental Health Percentile 5 5 26* Percentiles provide an indication of how a patient's score ranks in relation to the [place] general population. > 31st percentile is within normal limits or better * < 31st percentile is at least SD worse than population, which may be clinically relevant < 16th percentile is at least 1 SD worse than population and warrants attention Depression Screening: PHQ-9 06/09/2021 12/07/2021 03/20/2022 Score 12 15 8 Self-Harm Response 0 0 0 PHQ-9 Scores: PHQ-9 Self-Harm (Item 9) Response: 0 - 9 No to Mild depression 0 - Not at all 10 - 14 Moderate depression 1 - Several Days > 15 Severe depression 2 - More than half the days 3 - Nearly every day Sleep Apnea Probability Score 07/11/2020 Sleep Apnea Screen V2 35.64 (Sleep study not recommended) PHYSICAL EXAMINATION LMP 05/11/2009 General: Well-developed, well-nourished, in no acute distress. HEENT: Normocephalic, atraumatic. Sclerae anicteric. Lungs: Respirations even and unlabored. Neurological: Awake, alert, oriented to person, place, and time. Speech fluent, no dysarthria. Goodattention and insight into illness. Cranial Nerves: Extraocular movements grossly intact. Facial movements appear normal and symmetric. Motor: No pronator drift or tremor. Moves all extremities freely. Gait: Ambulates easily into the office without assistance. Incision: Prior to cleansing: Dried, thick serosanguinous drainage overlying depression on right skull, alongcraniotomy incision No tenderness to palpation or erythema. After cleansing: Scant clear, thick serosanguineous (non-purulent) drainage at anterior portion of incision. No expressible drainage. IMAGING CT (12/27/2021): Changes of midline frontal craniotomy for LUBA aneurysm clipping. Heterogeneous irregularity of the calvarial flap to the right of midline without definitive overlying scalp swellingor edema. Comparison should be made with any available recent prior imaging to assess stability of this finding which could be infectious in etiology given reported overlying scalp wound. Otherwise no acute intracranial abnormality. DSA (07/21/2020): No residual filling of the left LUBA aneurysm status-post surgical clipping. DSA (01/08/2020): Left anterior cerebral artery irregular 4.5 mm x 2.6 mm x 3.9 mm aneurysm arisingfrom the pericallosal-callosomarginal junction. LABS Latest Reference Range & Units 04/05/22 10:21 Sodium 136 - 144 mmol/L 138 Potassium 3.7 - 5.1 mmol/L 4.2 Chloride 97 - 105 mmol/L 105 CO2 22 - 30 mmol/L 22 BUN 7 - 21 mg/dL 13 Creatinine 0.58 - 0.96 mg/dL 0.65 Glucose 74 - 99 mg/dL 132 (H) Calcium 8.5 - 10.2 mg/dL 9.7 Anion Gap 9 - 18 mmol/L 11 eGFR >=60 mL/min/1.73m 102 UltraSens C-Reactive Protein <3.1 mg/L 1.6 Cholesterol, Total <200 mg/dL 116 Triglyceride <150 mg/dL 140 Fasting Time hrs 12 HDL Cholesterol >39 mg/dL 50 LDL Cholesterol <100 mg/dL 38 VLDL Cholesterol <30 mg/dL 28 TC:HDL Ratio <5.10 2.32 LDL:HDL Ratio <2.54 0.76 Non HDL Cholesterol <130 mg/dL 66 Prealbumin 17 - 36 mg/dL 30 Hemoglobin A1C 4.3 - 5.6 % 6.1 (H) Estimated Average Glucose mg/dL 128 WBC 3.70 - 11.00 k/uL 8.76 RBC 3.90 - 5.20 m/uL 4.96 Hemoglobin 11.5 - 15.5 g/dL 14.8 Hematocrit 36.0 - 46.0 % 42.8 Platelet Count 150 - 400 k/uL 270 MCV 80.0 - 100.0 fL 86.3 MCH 26.0 - 34.0 pg 29.8 MCHC 30.5 - 36.0 g/dL 34.6 MPV 9.0 - 12.7 fL 10.9 RDW-CV 11.5 - 15.0 % 13.4 DTYPE Auto Neut% % 43.0 Abs Neut (ANC) 1.45 - 7.50 k/uL 3.78 Lymph% % 48.3 Abs Lymph 1.00 - 4.00 k/uL 4.23 (H) Wells% % 5.6 Abs Wells <0.87 k/uL 0.49 Eosin% % 2.1 Abs Eosin <0.46 k/uL 0.18 Baso% % 0.5 Abs Baso <0.11 k/uL 0.04 Immature Gran % % 0.5 IMMATURE GRANS (ABS) <0.10 k/uL 0.04 NRBC /100 WBC 0.0 Absolute nRBC <0.01 k/uL <0.01 WSR 0 - 20 mm/hr 2 (H): Data is abnormally high IMPRESSION 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 Remote lacunar stroke in 2019 Irritable bowel syndrome Hypertension: Blood pressure goal < 130/80 Blood pressure today: LMP 05/11/2009 Diabetes: Hba1c goal < 7.0 Most recent Hba1c: Hemoglobin A1C (%) Date Value 04/05/2022 6.1 07/14/2020 6.8 Hemoglobin A1C (POCT) (%) Date Value 10/22/2020 5.9 Recommendations: MRI brain with/without contrast Continue to monitor incision at home. Call the office right away at [phone] if you notice: More drainage or bleeding from the incision More redness or openings in or around the incision Foul odor or pus coming from the incision Fever above 101.0 F or shaking chills Continue wound care at home with cleansing the site daily with guaze dampened with saline and allowto air dry. Do not wash, comb, or brush hair for 14 days. Do not use hair products for 14 days. Cerebral angiogram at 5 years post aneurysm clipping (07/2025) Optimization of aneurysm risk factors Blood pressure control: goal BP less than 140/90 Refrain from cigarette smoking Return to clinic following MRI imaging I spent a total of 25 minutes on the date of the service which included preparing to see the patient, [id number] patient care, completing clinical documentation, obtaining and/or reviewing separately obtained history, performing a medically appropriate examination, counseling and educating the pat ient/family/caregiver, communicating with other HCPs (not separately reported), communicating results to the patient/family/caregiver, and care coordination (not separately reported). Some elements may have been copied from a previous note and have been updated/reviewed where appropriate. All portions reflect current medical decision making from today. SIGNATURE Maryam Salmeron APRN.CNP 04/11/2022 documented [facility] this [facility] Miscellaneous Notes* Telephone Encounter - Erma Ayers RN - 03/28/2022 3:53 PM EST Left VM for patient inquiring if lab work had been completed. Stated that if it hadn't to please complete JASWANT. If completed at outside facility to please let us know where so results can be obtained. Erma Ayers RN documented in this encounterMer[facility]01-10-2023 Instructions* Patient Instructions* Abbe Franco APRN.ADAN - 03/22/2022 3:08 PM EST Diagnostic cerebral angiogram due July 2025. Our office will send a reminder 6-8 weeks before you are due to schedule your appointments. If you do not hear from us, please call [phone] or send a tritrue message to connect with one of our caregivers. Do not wash, comb, or brush hair for 14 days. Cleanse site daily with guaze dampened with saline and allow to air dry. Do not use hair products for 14 days. Please have labs drawn to check for infection. Call the office right away at [phone] if you notice: More drainage or bleeding from the incision More redness or openings in or around the incision Foul odor or pus coming from the incision Fever above 101.0 F or shaking chills Call 911 right away if you or someone else has any of these stroke symptoms: Sudden numbness or weakness in the face, arm, or leg, especially on one side of the body. Sudden confusion, trouble speaking, or difficulty understanding speech. Sudden trouble seeing in one or both eyes. Sudden trouble walking, dizziness, loss of balance, or lack of coordination. Sudden severe headache with no known cause. documented in this encounterMer[facility]01-10-2023 History of Present illness Narrative* Abbe Franco APRN.CNP - 03/22/2022 2:16 PM EST Images from the original note were not included. [facility] Post-Op Follow Up Visit Merle Bradley [facility]#: [id number] Date of Service: 02/19/2022 Primary Care Provider: Yessenia Rodriguez MD FOLLOW UP VISIT Merle Bradley is a 60 year old female, who presents for neurologic evaluation following bicoronal craniotomy for clipping of distal left LUBA aneurysm 07/21/2020 c/b delayed wound dehiscence s/p washout, drainage, removal of hardware, primary closure on 05/13/2021. PCP: Yessenia Rodriguez MD Collaborating Physician: Dr. Adilene Lino Reason for visit: Unruptured aneurysm History of Event: 60 yof with PMH DM, HTN, IBS, FABIOLA, lacunar stroke (2019), bicoronal craniotomy for clipping of distal left LUBA aneurysm 07/21/[address] Lino who developed delayed wound dehiscence and underwent I&D, removal of hardware, and primary closure on 05/13/2021. Operative cultures grew MSSA and patient was discharged on IV oxacillin (completed 06/2021). She returns due to concerns for poorly healing wound with drainage. Interval history: - DONOVAN wound check 12/08/2021 with RN. See note for picture. - right side of incision started dripping, first noticed 11/2021, happens most everyday. (In 05/2021,left side of incision was bad side.) - drainage is sticky honey colored, gets worse with washing hair. - usually occurs with waking up or bending over. - drained a lot last week, not as much this week. - scant bleeding last time washed hair a few days ago, thinks dislodged scab with comb. - delayed care for wound due to sister recently diagnosed with metastatic lung cancer. - sleeps on right side (same as open spot). - no fever, chills. +hot flashes. - Aspirin 81 daily stopped, unable to pay. - blood sugars controlled; having trouble affording medications and receives bottles intermittently. - former smoker, quit 2000. - no family history of brain aneurysms. Unknown maternal history besides alcoholism. 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) Handedness: right-handed Past Medical History: ACTIVE PROBLEM LIST Hypertension, Essential Anxiety Cva (Cerebral Vascular Accident) (Hcc) Diabetes Mellitus Type 2, Controlled, Without Complications (Hcc) Hyperlipidemia Ataxia Due to Acute Cerebrovascular Disease Obesity, Class II, Bmi 35-39.9 Intracranial Aneurysm Fabiola (Obstructive Sleep Apnea) Gerd (Gastroesophageal Reflux Disease) Irritable Bowel Syndrome With Diarrhea Back Pain Seborrheic Dermatitis Lacunar Stroke (Hcc) Hyperlipidemia Associated With Type 2 Diabetes Mellitus (Hcc) Hx of Craniotomy Imbalance Wound Dehiscence PAST SURGICAL HISTORY Procedure Laterality Date APPENDECTOMY SECTION HX COLONOSCOPY 02/16/2022 repeat in 10 years LIG/TRNSXJ FLP TUBE ABDL/VAG APPR UNI/BI PICC LINE INSERT/CONSULT 05/15/2021 PILONIDAL CYST/SINUS EXCISION 1985 TONSILLECTOMY PRIMARY/SECONDARY <AGE 14 Allergies: Patient has no known allergies. Medications: Current Outpatient Medications Medication Sig hydrALAZINE (APRESOLINE) 50 mg tablet Take 1 tablet by mouth three times daily. ONETOUCH ULTRA2 METER blood sugar diagnostic (BLOOD GLUCOSE TEST) test strip Test blood sugar(s) 2 times daily. Dx: Type 2 DM - Uncontrolled E11.65 Insulin: No DX: E11.9 Lancets lancets Test blood sugar(s) 2 times daily. Dx: Type 2 DM - Uncontrolled E11.65 Insulin: No DX:E11.9 acetaminophen (TYLENOL) 325 mg tablet Take 2 tablets by mouth every 4 hours as needed for pain. metFORMIN (GLUCOPHAGE) 500 mg tablet Take 1 tablet by mouth twice daily with meals. lisinopril (ZESTRIL, PRINIVIL) 40 mg tablet Take 1 tablet by mouth daily at bedtime. carvedilol (COREG) 6.25 mg tablet Take 1 tablet by mouth twice daily with meals. atorvastatin (LIPITOR) 80 mg tablet Take 1 tablet by mouth once daily. amLODIPine (NORVASC) 10 mg tablet Take 1 tablet by mouth once daily. Ascorbic Acid 1,000 mg tablet Take 1,000 mg by mouth once daily. cholecalciferol, vitamin D3, (VITAMIN D3 ORAL) Take by mouth. 2000 international unit(s) daily vitamin B complex (B COMPLEX ORAL) Take 1 tablet by mouth once daily. peg 3350-Electrolytes (GOLYTELY) 236-22.74-6.74 -5.86 gram suspension Refer to printed prep instructions from your provider. sodium chloride (NaCl) 0.9% injection solution Inject 10 mL intravenously as directed. Flush with 10ml before and after dose. Flush with 10ml before and 20ml after lab draws. flush unused lumen(s) daily with 10ml. Flush all lumens with 10ml before and after TPN infusions. No current facility-administered medications for this visit. Social History Tobacco Use Smoking status: Former Packs/day: 0.30 Years: 15.00 Pack years: 4.50 Types: Cigarettes Start date: 07/14/1978 Quit date: 05/21/2000 Years since quittin.8 Smokeless tobacco: Never Vaping Use Vaping Use: Some days Substances: CBD Substance Use Topics Alcohol use: Not Currently Drug use: Not Currently Types: Marijuana Comment: medical marijuana Family History: Subarachnoid hemorrhage: None Aneurysms: None Stroke: Yes, grandmother, great aunts, father Vascular malformations: None Other neurologic diseases: Yes, seizure (sister) Review of Systems Constitutional: Negative Eyes: Negative HENT: Negative Cardiovascular: Negative Respiratory: Negative GI: Negative : Negative Musculoskeletal: Negative Integumentary: +yeast rash on face Heme/Lymph: Negative Allergy/Immunologic: Negative Neurologic: +intermittent tingling and numbness in R mouth, thumb/4th/5th fingers (baseline s/p CVA) Psychiatric: Negative Patient Entered Questionnaires PROMIS/NeuroQoL Score Percentiles Physical Health 03/16/2022 12/07/2021 12/06/2021 Physical Function Percentile 18* - 24* Sleep Percentile 14 14 - Fatigue Percentile 46 - 18* Pain Interference Percentile 24* - 8 PROMIS SOCIAL ROLE SCORE 03/16/2022 12/06/2021 06/09/2021 Social Role Satisfaction Percentile 24* 42 50 Mental Health 03/16/2022 12/06/2021 06/09/2021 NeuroQol Cognitive Function Percentile 38 46 34 General Self-Efficacy Percentile 18* 24* 34 PROMIS Global Health Scale 03/20/2022 12/07/2021 06/09/2021 Physical Health Percentile 15 10 31 Mental Health Percentile 5 5 26* Percentiles provide an indication of how a patient's score ranks in relation to the [place] general population. > 31st percentile is within normal limits or better * < 31st percentile is at least SD worse than population, which may be clinically relevant < 16th percentile is at least 1 SD worse than population and warrants attention Depression Screening: PHQ-9 06/09/2021 12/07/2021 03/20/2022 Score 12 15 8 Self-Harm Response 0 0 0 PHQ-9 Scores: PHQ-9 Self-Harm (Item 9) Response: 0 - 9 No to Mild depression 0 - Not at all 10 - 14 Moderate depression 1 - Several Days > 15 Severe depression 2 - More than half the days 3 - Nearly every day Sleep Apnea Probability Score 07/11/2020 Sleep Apnea Screen V2 35.64 (Sleep study not recommended) PHYSICAL EXAMINATION BP 111/60 (BP Site: Right Arm, BP Position: Sitting, BP Cuff Size: Regular Adult) Pulse 73 Ht 162.6 cm (5' 4) LMP 05/11/2009 SpO2 98% BMI 38.45 kg/m General: Well-developed, well-nourished, in no acute distress. HEENT: Normocephalic, atraumatic. Sclerae anicteric. Lungs: Respirations even and unlabored. Neurological: Awake, alert, oriented to person, place, and time. Speech fluent, no dysarthria. Goodattention and insight into illness. Cranial Nerves: PERRL, extraocular movements intact without nystagmus. Facial sensation and movements normal and symmetric. Tongue midline. Shoulder shrug symmetric. Motor: Normal bulk and tone. Strength 5/5 throughout. No pronator drift or tremor. Sensation: Grossly intact light touch. Gait: Ambulates easily into the office without assistance. Incision: Prior to cleansing: Dried, thick yellow drainage overlying depression on right skull, along craniotomy incision No tenderness to palpation or erythema. After cleansing: small dime-sized area or red-pink tissue overlying skull depression. Possible small pinpoint area of dehiscence at anterior portion, with scant clear, thick yellow serous (non-purulent) drainage. No expressible drainage. IMAGING CTH (12/27/2021): Changes of midline frontal craniotomy for LUBA aneurysm clipping. Heterogeneous irregularity of the calvarial flap to the right of midline without definitive overlying scalp swellingor edema. Comparison should be made with any available recent prior imaging to assess stability of this finding which could be infectious in etiology given reported overlying scalp wound. Otherwise no acute intracranial abnormality. DSA (07/21/2020): No residual filling of the left LUBA aneurysm status-post surgical clipping. DSA (01/08/2020): Left anterior cerebral artery irregular 4.5 mm x 2.6 mm x 3.9 mm aneurysm arisingfrom the pericallosal-callosomarginal junction. LABS Component 05/11/2021 CRP 1.2 (H) WSR 8 Prealbumin 26 IMPRESSION 60 yof with PMH DM, HTN, IBS, FABIOLA, lacunar stroke (2019), bicoronal craniotomy for clipping of distal left LUBA aneurysm 07/21/2020 who developed delayed wound dehiscence s/p I&D, removal of hardware, and primary closure on 05/13/2021, completed RYAN oxacillin for +MSSA 06/24/2021, returns with right-sided scant, thick serous incisional drainage. PLAN - imaging reviewed with patient, right skull depression corresponds to calvarial irregularity on CTH. Consider further imaging, will discuss with Dr. Lino. - check CBC, ESR, CRP, PAB - no washing, brushing, combing hair or use hair products for 14 days. Cleanse daily with guaze moistened with saline. - cerebral angiogram at 5 years (07/2025). - return in 2 weeks for wound check. All questions/concerns addressed and patient is agreeable to this plan. I spent a total of 25 minutes on the date of the service which included preparing to see the patient, [id number] patient care, completing clinical documentation, obtaining and/or reviewing separately obtained history, performing a medically appropriate examination, counseling and educating the pat ient/family/caregiver, communicating with other HCPs (not separately reported), communicating results to the patient/family/caregiver, and care coordination (not separately reported). SIGNATURE Abbe Franco APRN.CNP March 22, 2022 documented in this encounterMer[facility]12-07-[facility] History and physical note * Dominick Mendoza MD - 02/16/2022 9:00 AM EST CC: screen colon HPI: Merle Bradley is a 61 year old female. here for cscope PAST MEDICAL HISTORY Diagnosis Date Diabetes mellitus (HCC) 11/2019 GERD (gastroesophageal reflux disease) Hypertension Irritable bowel syndrome with diarrhea Lacunar stroke (HCC) 11/2019 FABIOLA (obstructive sleep apnea) PAST SURGICAL HISTORY Procedure Laterality Date APPENDECTOMY SECTION HX LIG/TRNSXJ FLP TUBE ABDL/VAG APPR UNI/BI PICC LINE INSERT/CONSULT 05/15/2021 PILONIDAL CYST/SINUS EXCISION 1985 TONSILLECTOMY PRIMARY/SECONDARY <AGE 14 SOCIAL HX: Social History Tobacco Use Smoking status: Former Packs/day: 0.30 Years: 15.00 Pack years: 4.50 Types: Cigarettes Start date: 07/14/1978 Quit date: 05/21/2000 Years since quittin.7 Smokeless tobacco: Never Vaping Use Vaping Use: Some days Substances: CBD Substance Use Topics Alcohol use: Not Currently Drug use: Not Currently Types: Marijuana FAMILY HISTORY Problem Relation Age of Onset No Ocular Disease Mother Alcohol abuse Mother Cataract Father Hypertension Father ALLERGIES: ALLERGIES No Known Allergies MEDICATIONS: hydrALAZINE (APRESOLINE) 50 mg tablet^Take 1 tablet by mouth three times daily.^Disp: 270 tablet^Rfl: 3 lisinopril (ZESTRIL, PRINIVIL) 40 mg tablet^Take 1 tablet by mouth daily at bedtime.^Disp: 90 tablet^Rfl: 3 amLODIPine (NORVASC) 10 mg tablet^Take 1 tablet by mouth once daily.^Disp: 90 tablet^Rfl: 3 peg 3350-Electrolytes (GOLYTELY) 236-22.74-6.74 -5.86 gram suspension^Refer to printed prep instructions from your provider.^Disp: 4000 mL^Rfl: 0 MAZUCH ULTRA2 METER^^Disp: ^Rfl: blood sugar diagnostic (BLOOD GLUCOSE TEST) test strip^Test blood sugar(s) 2 times daily. Dx: Type 2 DM - Uncontrolled E11.65 Insulin: No DX: E11.9^Disp: 50 Strip^Rfl: 11 Lancets lancets^Test blood sugar(s) 2 times daily. Dx: Type 2 DM - Uncontrolled E11.65 Insulin: No DX:E11.9^Disp: 100 Each^Rfl: 11 acetaminophen (TYLENOL) 325 mg tablet^Take 2 tablets by mouth every 4 hours as needed for pain.^Disp: ^Rfl: methocarbamol (ROBAXIN) 750 mg tablet^Take 1 tablet by mouth three times daily as needed for musclespasm, pain with chewing.^Disp: 30 tablet^Rfl: 0 (Patient not taking: No sig reported) ondansetron orally disintegrating (ZOFRAN ODT) 4 mg disintegrating tablet^Dissolve 1 tablet by mouth every 8 hours as needed for nausea/vomiting.^Disp: 30 tablet^Rfl: 0 (Patient not taking: Reported on 12/08/2021) metFORMIN (GLUCOPHAGE) 500 mg tablet^Take 1 tablet by mouth twice daily with meals.^Disp: 180 tablet^Rfl: 3 carvedilol (COREG) 6.25 mg tablet^Take 1 tablet by mouth twice daily with meals.^Disp: 180 tablet^Rfl: 3 atorvastatin (LIPITOR) 80 mg tablet^Take 1 tablet by mouth once daily.^Disp: 90 tablet^Rfl: 3 aspirin 81 mg chewable tablet^Take 81 mg by mouth once daily.^Disp: ^Rfl: sodium chloride (NaCl) 0.9% injection solution^Inject 10 mL intravenously as directed. Flush with 10ml before and after dose. Flush with 10ml before and 20ml after lab draws. flush unused lumen(s) daily with 10ml. Flush all lumens with 10ml before and after TPN infusions.^Disp: ^Rfl: Ascorbic Acid 1,000 mg tablet^Take 1,000 mg by mouth once daily. ^Disp: ^Rfl: cholecalciferol, vitamin D3, (VITAMIN D3 ORAL)^Take by mouth. 2000 international unit(s) daily^Disp: ^Rfl: aspirin 81 mg chewable tablet^Take 1 tablet by mouth once daily.^Disp: 90 tablet^Rfl: 1 vitamin B complex (B COMPLEX ORAL)^Take 1 tablet by mouth once daily. ^Disp: ^Rfl: ROS: All systems reviewed and negative except as above noted. PHYSICAL EXAM: VITALS: BP 131/79 Pulse 75 Temp (Src) 97.3 (Temporal) Resp 18 SpO2 96% LMP 05/11/2009 O2 Therapy: Room Air Lungs: Lungs clear to auscultation. No wheezing, rhonchi, rales. Heart: RRR without murmur, gallop, or rubs. No ectopy. Abdomen: Normal abdominal exam, Abdomen soft, non-tender. Bowel sounds normal. No masses, organomegaly. IMPRESSION: sceen colon PLAN: cscope This note was partially generated using [employer] voice recognition system, and there may be some incorrect words, spellings, and punctuation that were not noted in checking the note before saving. Dominick Mendoza III, MD documented in this encounterMercy [facility]12-05-2022 Miscellaneous Notes* Telephone Encounter - Mirian Iraheta LPN - 02/14/2022 8:25 AM EST Please review and advise. documented in this encounterMercy Health Kings [facility]09-28-2022 History of Present illness Narrative* Nicole Donaldson RN - 12/08/2021 1:26 PM EDT Images from the original note were not included. 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 This is Other No reported daily headaches. PCP: Yessenia Rodriguez MD Collaborating Physician: Dr. Adilene Lino Reason for Visit: Patient presents today for further evaluation of her cranial wound. She reports 2days ago she had a drop of fluid come out when she bent over, she stated the fluid felt sticky and that it was clear. She has had nothing since. She denies positional headaches, or any new characteristics to her chronic headaches. Patient denies any flu like symptoms including fever, chills, or malaise. Handedness: right-handed Hypertension Y Coronary Artery Disease NA Diabetes Y Obesity NA Dyslipidemia NA Tobacco Use (Please Update Smoking History) NA Stroke NA Intracranial Aneurysm NA Past Medical History: ACTIVE PROBLEM LIST Hypertension, Essential Anxiety Cva (Cerebral Vascular Accident) (Hcc) Diabetes Mellitus Type 2, Controlled, Without Complications (Hcc) Hyperlipidemia Ataxia Due to Acute Cerebrovascular Disease Obesity, Class II, Bmi 35-39.9 Intracranial Aneurysm Fabiola (Obstructive Sleep Apnea) Gerd (Gastroesophageal Reflux Disease) Irritable Bowel Syndrome With Diarrhea Back Pain Seborrheic Dermatitis Lacunar Stroke (Hcc) Hyperlipidemia Associated With Type 2 Diabetes Mellitus (Hcc) Hx of Craniotomy Imbalance Wound Dehiscence PAST SURGICAL HISTORY Procedure Laterality Date APPENDECTOMY SECTION HX LIG/TRNSXJ FLP TUBE ABDL/VAG APPR UNI/BI PICC LINE INSERT/CONSULT 05/15/2021 PILONIDAL CYST/SINUS EXCISION 1985 TONSILLECTOMY PRIMARY/SECONDARY <AGE 14 Allergies: Patient has no known allergies. Medications: Current Outpatient Medications Medication Sig peg 3350-Electrolytes (GOLYTELY) 236-22.74-6.74 -5.86 gram suspension Refer to printed prep instructions from your provider. hydrALAZINE (APRESOLINE) 50 mg tablet Take 1 tablet by mouth three times daily. ONETOUCH ULTRA2 METER blood sugar diagnostic (BLOOD GLUCOSE TEST) test strip Test blood sugar(s) 2 times daily. Dx: Type 2 DM - Uncontrolled E11.65 Insulin: No DX: E11.9 Lancets lancets Test blood sugar(s) 2 times daily. Dx: Type 2 DM - Uncontrolled E11.65 Insulin: No DX:E11.9 acetaminophen (TYLENOL) 325 mg tablet Take 2 tablets by mouth every 4 hours as needed for pain. metFORMIN (GLUCOPHAGE) 500 mg tablet Take 1 tablet by mouth twice daily with meals. lisinopril (ZESTRIL, PRINIVIL) 40 mg tablet Take 1 tablet by mouth daily at bedtime. carvedilol (COREG) 6.25 mg tablet Take 1 tablet by mouth twice daily with meals. atorvastatin (LIPITOR) 80 mg tablet Take 1 tablet by mouth once daily. amLODIPine (NORVASC) 10 mg tablet Take 1 tablet by mouth once daily. sodium chloride (NaCl) 0.9% injection solution Inject 10 mL intravenously as directed. Flush with 10ml before and after dose. Flush with 10ml before and 20ml after lab draws. flush unused lumen(s) daily with 10ml. Flush all lumens with 10ml before and after TPN infusions. Ascorbic Acid 1,000 mg tablet Take 1,000 mg by mouth once daily. cholecalciferol, vitamin D3, (VITAMIN D3 ORAL) Take by mouth. 2000 international unit(s) daily aspirin 81 mg chewable tablet Take 1 tablet by mouth once daily. vitamin B complex (B COMPLEX ORAL) Take 1 tablet by mouth once daily. methocarbamol (ROBAXIN) 750 mg tablet Take 1 tablet by mouth three times daily as needed for musclespasm, pain with chewing. (Patient not taking: Reported on 12/08/2021) ondansetron orally disintegrating (ZOFRAN ODT) 4 mg disintegrating tablet Dissolve 1 tablet by mouth every 8 hours as needed for nausea/vomiting. (Patient not taking: Reported on 12/08/2021) aspirin 81 mg chewable tablet Take 81 mg by mouth once daily. No current facility-administered medications for this visit. Social History Tobacco Use Smoking status: Former Packs/day: 0.30 Years: 15.00 Pack years: 4.50 Types: Cigarettes Start date: 07/14/1978 Quit date: 05/21/2000 Years since quittin.5 Smokeless tobacco: Never Vaping Use Vaping Use: Some days Substances: CBD Substance Use Topics Alcohol use: Not Currently Drug use: Not Currently Types: Marijuana Review of Systems Neurological: Positive for headaches (baseline). Negative for aphasia, dizziness, memory difficulty, numbness/tingling, slurred speech and weakness. Patient Entered Questionnaires PROMIS/NeuroQoL Score Percentiles Physical Health 12/07/2021 12/06/2021 06/09/2021 Physical Function Percentile - 24* 14 Sleep Percentile 14 - 16* Fatigue Percentile - 18* 21* Pain Interference Percentile - 8 38 PROMIS SOCIAL ROLE SCORE 12/06/2021 06/09/2021 02/15/2021 Social Role Satisfaction Percentile 42 50 42 Mental Health 12/06/2021 06/09/2021 12/25/2020 NeuroQol Cognitive Function Percentile 46 34 58 General Self-Efficacy Percentile 24* 34 14 PROMIS Global Health Scale 12/07/2021 06/09/2021 01/11/2021 Physical Health Percentile 10 31 31 Mental Health Percentile 5 26* 19* Percentiles provide an indication of how a patient's score ranks in relation to the [place] general population. > 31st percentile is within normal limits or better * < 31st percentile is at least SD worse than population, which may be clinically relevant < 16th percentile is at least 1 SD worse than population and warrants attention Depression Screening PHQ-9 12/25/2020 06/09/2021 12/07/2021 Score 14 12 15 Self-Harm Response 0 0 0 PHQ-9 Scores: PHQ-9 Self-Harm (Item 9) Response: 0 - 9 No to Mild depression 0 - Not at all 10 - 14 Moderate depression 1 - Several Days > 15 Severe depression 2 - More than half the days 3 - Nearly every day Sleep Apnea Probability Score 07/11/2020 Sleep Apnea Screen V2 35.64 (Sleep study not recommended) Nicole Donaldson RN PHYSICAL EXAMINATION BP 108/64 (BP Site: Right Arm, BP Position: Sitting, BP Cuff Size: Large Adult) Pulse 93 Temp 36.2 C (97.1 F) (Temporal) Resp 14 Ht 162.6 cm (5' 4) Wt 101.6 kg (224 lb) LMP 05/11/2009 SpO2 100% BMI 38.45 kg/m Patient's wound is scabbed over at this point. No fluid able to be expressed. Small area of redness(appeared improved since last picture on wound check. No swelling or heat at site. Just to the patient's left of noted area there is an indentation that patient's believes has been stable but possibly slightly more indented. IMAGING Labs N/a Stroke Mechanism and Scales IMPRESSION Reviewed images and clinical presentation which lack signs of infection or obvious deterioration ofcrani site with Dr. Lino. Also discussed that as there is no current or active drainage from site, no immediate current intervention indicated. Dr. Lino further recommends f/up CT head to evaluate skull and previous craniotomy site. Patient encouraged to f/up with any change in site or drainage. Patient agrees. SIGNATURE Nicole Donaldson RN documented in this encounterMercy [facility]06-16-2022 Miscellaneous Notes* Telephone Encounter - Mirian Iraheta LPN - 08/26/2021 4:[address] orders for colonoscopy, so patient can schedule. Mirian Iraheta LPN documented in this encounterMercy [facility]04-19-2022 Miscellaneous Notes* Telephone Encounter - Yessenia Rodriguez MD - 06/29/2021 9:15 AM EDT Noted. * Telephone Encounter - Go Wolf RN - 06/28/2021 7:[address] Rodriguez and Dr. Quintero; Patient has been discharged from skilled home health services as of 06/25/21. Thank you for allowingus to care for your home health patient. Go Wolf RN-[facility]. documented in this encounterMercy Health Kings [facility] Hospital04-15-2022 Miscellaneous Notes* [facility] Agency DC - Amalia Diaz RN - 06/25/2021 11:50 AM EDT SITUATION: Residential agency discharge visit completed today. Nobody also present during today's visit. patient reports the following: Allergies--reviewed Medications--full medication reconciliation completed Falls--None BACKGROUND: Reason for Home Care: picc care, IV antibiotics ASSESSMENT: SN greeted at door by patient no DME and demonstrates stable gait. Patient appears in no acute distress. Patient/CG concerns verbalized today: none verbalized Vitals (see flow sheet for details): stable SN findings today: Patient is finished with IV antibiotics. Picc line pulled per orders, patient tolerated well. Scalp incision healed See intervention summary for education details and any skills performed. Specific SN discharge instructions: Reviewed safety/fall prevention measures, DM mgmt, s/s infection and when to seek medical attention. Patient verbalized understanding of instructions Patient encouraged to take all medication as ordered, eat a well-balanced diet and follow up with all physician appointments. NOMNC: patient requested discharge today Discharged due to per patient/caregiver request. Patient discharged from Home Care to: family support SN sent telephone to Dr Rodriguez re: agency dc today RECOMMENDATION: Additional follow ups recommended: PCP as needed Patient to follow up with Dr. Rodriguez for additional medical questions/concerns. documented in this encounterMercy Health [facility]04-14-2022 Miscellaneous Notes* Telephone Encounter - Amairani Quintero MD - 06/24/2021 2:56 PM EDT Spoke with Ms. Bradley, Tolerated antibiotics no issues Seen by neurosurgery Wound healing well No more pain COPAT completed Stop antibiotics Sent message to team to pull PICC Amairani Quintero MD June 24, 2021 documented in this encounterMercy Health [facility]04-14-2022 Nurse Note* Fernanda Santana RN - 06/24/2021 2:[address] Camacho orders Copat stop 06/24/21 Remove PICC 06/24/21 [facility] notified Fernanda Santana RN documented in this encounterMercy Health [facility]04-11-2022 Miscellaneous Notes* [facility] Routine IV - Payton Haas RN - 06/21/2021 3:40 PM EDT SITUATION: Residential routine IV visit completed today. daughter also present during today's visit. patient reports the following: Allergies--reviewed Medications--reviewed current medications Falls--None BACKGROUND: Reason for Home Care: IV antibiotics ASSESSMENT: SN greeted at door by patient no DME and demonstrates stable gait. Patient appears in no acute distress. During visit, patient demonstrated independence with IV infusion and requires no further visits forIV infusion instructions. Patient/CG concerns verbalized today: none Vitals (see flow sheet for details): stable SN findings today: No new or abnormal findings today. Patient lives in a 2 story home with daughter. patient states she has no pain today. Sutures are out on head-meaurements taken and documented. Respirations clear and easy. heart sounds regular. bowel sounds in all quadrants. Labs drawn per physician order- no complications. picc care completed per physician order- no complications. patient is independent with IV antibiotics. Patient states she has no questions or concerns at this time. Patient told to call office with any questions or concerns. See intervention summary for education details and skills performed. Plan of care, progress towards goals, and visit frequency reviewed with patient. Patient demonstrated a need for further skilled SN services for chronic disease management & education, medication education, infusion care and labs Current Discharge plan: self-care and family support RECOMMENDATION: Next visit to focus on (be specific): Labs. Picc care documented in this encounterMercy Health [facility] Hospital04-06-2022 Instructions* Patient Instructions* Abbe Franco APRN.CNP - 06/16/2021 2:54 PM EDT No ointments, chemical treatments or hair dye until your incision is well-healed. Call the office right away at [phone] if you notice: Drainage or bleeding from the incision Redness or openings in or around the incision Foul odor or pus coming from the incision Fever above 101.0 F or shaking chills documented in this encounterMercy Health [facility] Hospital04-06-2022 History of Present illness Narrative* Abbe Franco APRN.CNP - 06/16/2021 2:06 PM EDT [facility] Post-Op Follow Up Visit Merle Bradley [facility]#: [id number] Date of Service: 06/16/2021 Primary Care Provider: Yessenia Rodriguez MD FOLLOW UP VISIT Merle Bradley is a 60 year old female, who presents for neurologic evaluation following bicoronal incision washout, drainage, removal of hardware, primary closure on 05/13/[address] Lino. This is 4 - 6 week PCP: Yessenia Rodriguez MD Collaborating Physician: Dr. Adilene Lino Reason for visit: Other (see comment) (post-op from I&D) History of Event: 60 yof with PMH DM, HTN, IBS, FABIOLA, lacunar stroke (2019), bicoronal craniotomy for clipping of distal left LUBA aneurysm 07/21/[address] Lino who developed delayed wound dehiscence and underwent I&D, removal of hardware, and primary closure on 05/13/2021. Operative cultures grew MSSA and patient was discharged on COPAT for oxacillin. Last day of antibiotics anticipated 06/24/2021. Sutures remain in place since surgery. Interval history: - tired easily but feels energy is improving. Feels SOB with more activity. - incision healing well. No drainage, clicking or fluid noises she previously heard. No fever, chills, or rash. - tolerating oxacillin without major issues. Annoyed that tubing gets tangled on stuff. Had yeast infection on face, controlled with topical antifungal. - Severe nausea from statin, stopped taking as her BP became very elevated when she was unable to tolerate PO intake or medications. - BP stable at home when consistently takes her medications. Nurses check every Monday and sends labwork while on abx. - Takes Aspirin 81 daily. 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 - Former smoker, quit 2000. - No family history of brain aneurysms. Unknown maternal history besides alcoholism. 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 - Denies MARIE, visual disturbances, dysphagia, slurred speech, facial droop, extremity weakness, new numbness or tingling, dizziness, or gait changes. Handedness: right-handed Hypertension Y Coronary Artery Disease NA Diabetes Y Obesity NA Dyslipidemia NA Tobacco Use (Please Update Smoking History) NA Stroke NA Intracranial Aneurysm NA Past Medical History: ACTIVE PROBLEM LIST Hypertension, Essential Anxiety Cva (Cerebral Vascular Accident) (Hcc) Diabetes Mellitus Type 2, Controlled, Without Complications ([facility]) Hyperlipidemia Ataxia Due to Acute Cerebrovascular Disease Obesity, Class II, Bmi 35-39.9 Intracranial Aneurysm Fabiola (Obstructive Sleep Apnea) Gerd (Gastroesophageal Reflux Disease) Irritable Bowel Syndrome With Diarrhea Back Pain Seborrheic Dermatitis Lacunar Stroke (Hcc) Hyperlipidemia Associated With Type 2 Diabetes Mellitus (Hcc) Hx of Craniotomy Imbalance Wound Dehiscence PAST SURGICAL HISTORY Procedure Laterality Date APPENDECTOMY SECTION HX LIG/TRNSXJ FLP TUBE ABDL/VAG APPR UNI/BI PICC LINE INSERT/CONSULT 05/15/2021 PILONIDAL CYST/SINUS EXCISION 1984 TONSILLECTOMY PRIMARY/SECONDARY <AGE 14 Allergies: Patient has no known allergies. Medications: Current Outpatient Medications Medication Sig blood sugar diagnostic (BLOOD GLUCOSE TEST) test strip Test blood sugar(s) 2 times daily. Dx: Type 2 DM - Uncontrolled E11.65 Insulin: No DX: E11.9 Lancets lancets Test blood sugar(s) 2 times daily. Dx: Type 2 DM - Uncontrolled E11.65 Insulin: No DX:E11.9 acetaminophen (TYLENOL) 325 mg tablet Take 2 tablets by mouth every 4 hours as needed for pain. methocarbamol (ROBAXIN) 750 mg tablet Take 1 tablet by mouth three times daily as needed for musclespasm, pain with chewing. oxacillin (BACTOCILL) 2 gram/50 mL Inject 50 mL intravenously every 4 hours. See COPAT ondansetron orally disintegrating (ZOFRAN ODT) 4 mg disintegrating tablet Dissolve 1 tablet by mouth every 8 hours as needed for nausea/vomiting. metFORMIN (GLUCOPHAGE) 500 mg tablet Take 1 tablet by mouth twice daily with meals. lisinopril (ZESTRIL, PRINIVIL) 40 mg tablet Take 1 tablet by mouth daily at bedtime. carvedilol (COREG) 6.25 mg tablet Take 1 tablet by mouth twice daily with meals. amLODIPine (NORVASC) 10 mg tablet Take 1 tablet by mouth once daily. hydrALAZINE (APRESOLINE) 50 mg tablet Take 50 mg by mouth three times daily. sodium chloride (NaCl) 0.9% injection solution Inject 10 mL intravenously as directed. Flush with 10ml before and after dose. Flush with 10ml before and 20ml after lab draws. flush unused lumen(s) daily with 10ml. Flush all lumens with 10ml before and after TPN infusions. Ascorbic Acid (VITAMIN C) 1,000 mg tablet Take 1,000 mg by mouth once daily. cholecalciferol, vitamin D3, (VITAMIN D3 ORAL) Take by mouth. 2000 international unit(s) daily aspirin 81 mg chewable tablet Take 1 tablet by mouth once daily. vitamin B complex (B COMPLEX ORAL) Take 1 tablet by mouth once daily. ONETOUCH ULTRA2 METER senna (SENOKOT) 8.6 mg tab Take 1 tablet by mouth twice daily as needed for constipation. (Patient not taking: Reported on 06/16/2021 ) atorvastatin (LIPITOR) 80 mg tablet Take 1 tablet by mouth once daily. (Patient not taking: Reported on 06/16/2021 ) aspirin 81 mg chewable tablet Take 81 mg by mouth once daily. hydrALAZINE (APRESOLINE) 50 mg tablet Take 1 tablet by mouth every 8 hours. No current facility-administered medications for this visit. Social History Tobacco Use Smoking status: Former Smoker Packs/day: 0.30 Years: 15.00 Pack years: 4.50 Types: Cigarettes Start date: 07/14/1978 Quit date: 05/21/2000 Years since quittin.0 Smokeless tobacco: Never Used Vaping Use Vaping Use: Some days Substances: CBD Substance Use Topics Alcohol use: Not Currently Drug use: Not Currently Types: Marijuana Illicit Drug Use: Medical marijuana Family History: Subarachnoid hemorrhage: None Aneurysms: None Stroke: Yes, grandmother, great aunts, father Vascular malformations: None Other neurologic diseases: Yes, seizure (sister) Review of Systems Constitutional: Negative Eyes: Negative HENT: Negative Cardiovascular: Negative Respiratory: Negative GI: Negative : Negative Musculoskeletal: Negative Integumentary: +yeast rash on face Heme/Lymph: Negative Allergy/Immunologic: Negative Neurologic: +intermittent tingling and numbness in R mouth, thumb/4th/5th fingers (baseline s/p CVA) Psychiatric: Negative Patient Entered Questionnaires PROMIS/NeuroQoL Score Percentiles Physical Health 06/09/2021 02/15/2021 12/25/2020 Physical Function Percentile 14 27* 18* Sleep Percentile 16* - 10 Fatigue Percentile 21* 38 58 Pain Interference Percentile 38 - 21* PROMIS SOCIAL ROLE SCORE 06/09/2021 02/15/2021 12/25/2020 Social Role Satisfaction Percentile 50 42 42 Mental Health 06/09/2021 12/25/2020 11/16/2020 NeuroQol Cognitive Function Percentile 34 58 34 General Self-Efficacy Percentile 34 14 10 PROMIS Global Health Scale 06/09/2021 01/11/2021 10/15/2020 Physical Health Percentile 31 31 10 Mental Health Percentile 26* 19* 26* Percentiles provide an indication of how a patient's score ranks in relation to the [place] general population. > 31st percentile is within normal limits or better * < 31st percentile is at least SD worse than population, which may be clinically relevant < 16th percentile is at least 1 SD worse than population and warrants attention Depression Screening: PHQ-9 11/16/2020 12/25/2020 06/09/2021 Score 9 14 12 Self-Harm Response 0 0 0 PHQ-9 Scores: PHQ-9 Self-Harm (Item 9) Response: 0 - 9 No to Mild depression 0 - Not at all 10 - 14 Moderate depression 1 - Several Days > 15 Severe depression 2 - More than half the days 3 - Nearly every day Sleep Apnea Probability Score 07/11/2020 Sleep Apnea Screen V2 35.64 (Sleep study not recommended) PHYSICAL EXAMINATION BP 115/71 (BP Site: Right Arm, BP Position: Sitting, BP Cuff Size: Large Adult) Pulse 75 Resp 14 Ht 162.6 cm (5' 4) Wt 101.2 kg (223 lb) LMP 05/11/2009 SpO2 98% BMI 38.28 kg/m General: Well-developed, well-nourished, in no acute distress. HEENT: Normocephalic, atraumatic. Sclerae anicteric. Lungs: Respirations even and unlabored. Neurological: Awake, alert, oriented to person, place, and time. Speech fluent, no dysarthria. Goodattention and insight into illness. Cranial Nerves: PERRL, extraocular movements intact without nystagmus. Facial sensation and movements normal and symmetric. Tongue midline. Shoulder shrug symmetric. Motor: Normal bulk and tone. Strength 5/5 throughout. No pronator drift or tremor. Sensation: Grossly intact light touch. Gait: Ambulates easily into the office without assistance. Incision: Incision with sutures in place, well-approximated with no erythema, tenderness, or drainage. Thick black scabs adherent to sutures. IMAGING No new imaging to review today. Labs No pertinent labs. IMPRESSION 60 yof with PMH DM, HTN, IBS, FABIOLA, lacunar stroke (2019), bicoronal craniotomy for clipping of distal left LUBA aneurysm 07/21/2020 who developed delayed wound dehiscence and is now ~ 5 weeks s/p I&D, removal of hardware, and primary closure on 05/13/2021, on oxacillin for +MSSA until 06/24/2021. - Incision appears to be healing well. Sutures removed without difficulty today. - Reinforced oral supplements, adequate protein intake, and glucose control to promote wound healing. - No ointments, chemical treatments, or hair dye to scalp until incision completely healed. - Continue to wash incision daily. Okay to gently scrub in the shower to remove loose scabs. - Continue to remain tobacco-free. - Follow-up in 3 months to monitor wound and post-op recovery. - Diagnostic cerebral angiogram in 07/2025 to assess clipped aneurysm. - Follow-up with PCP if ongoing SOB. Discussion, counseling, coordination of care > 50% of 35 minutes. Questions asked/ answered. Follow-up with results/ adherence to plan/ continued education. Dr. Lino was available to review the patient's case, imaging, and plan of care. SIGNATURE Abbe Franco APRN.CNP June 17, 2021 documented in this encounterMer[facility] Miscellaneous Notes* SN Routine IV - Amalia Diaz RN - 06/14/2021 1:44 PM EDT SITUATION: Residential routine IV visit completed today. nobody present during today's visit. patient reports the following: Allergies--reviewed Medications--reviewed current medications Falls--None BACKGROUND: Reason for Home Care: picc care/labs , scalp incision-MSSA ASSESSMENT: SN greeted at door by patient no DME and demonstrates stable gait. Patient appears in no acute distress. During visit, patient -is indep in IV sapphire pump Patient/CG concerns verbalized today: none voiced Vitals (see flow sheet for details): stable SN findings today: Patient states she is going tomorrow to have sutures removed from scalp. Incision is crusted w/sutures, no s/s infection. Patient states pain is improving SN completed Picc care & labwork per orders. No s/s infection to picc site See intervention summary for education details and skills performed. Plan of care, progress towards goals, and visit frequency reviewed with patient. Patient demonstrated a need for further skilled SN services for infusion care and labs Current Discharge plan: family support RECOMMENDATION: Next visit to focus on (be specific): picc care/labs documented in this encounterMer[facility]03-28-2022 Miscellaneous Notes* Telephone Encounter - Mirian Iraheta LPN - 06/07/2021 5:41 PM EDT Order faxed to [facility], received confirmation. Mirian Iraheta LPN * Telephone Encounter - Raquel Chacon Pss - 06/07/2021 4:18 PM EDT Patient only needs a glucose meter; please send to [facility] [address]; prescriptions were alreadysent for test strips and lancets. Make the prescription for the glucose meter generic so the pharmacy can fill the same. Please notify the patient on MyChart once sent. * Telephone Encounter - Bethanie Black Ma - 06/07/2021 3:59 PM EDT Left msg for pt to CB/mychart fax number for order to be faxed * Telephone Encounter - Luz Marina Carcamo PA-C - 06/07/2021 9:07 AM EDT Printed, please fax. Thanks, Luz Marina Carcamo PA-C Covering for Dr. Rodriguez documented in this encounterMercy [facility]03-28-2022 Miscellaneous Notes* SN Routine IV - Mima Zuniga RN - 06/07/2021 2:09 PM EDT SITUATION: Residential routine IV visit completed today. daughter also present during today's visit. patient reports the following: Allergies--reviewed Medications--reviewed current medications Falls--None BACKGROUND: Reason for Home Care: PICC care, home infusion ASSESSMENT: SN greeted at door by patient no DME and demonstrates stable gait. Patient appears in no acute distress. During visit, patient demonstrated independence with IV infusion and requires no further visits forIV infusion instructions. Patient/CG concerns verbalized today: none Vitals (see flow sheet for details): stable SN findings today: Patient is independent in he infusion set up- demonstrated independence with herSaphire pump. Incision to head is dry and scabbed. Per the patient she is due to go to have the sutures removed next month. States pain with the incision at times. Is able to wash her hair and is gently patting the area. Denies any falls. No new medications a this time. Is not able to check her blood sugars as she cannot afford a glucose monitor. Is working with her case working with care source to get one. PICC care performed today. Labs obtained and taken to [facility]. PICC is functioing properly. No questions at this time. Is aware of the next SN visit- and how to reach the [facility] office with any questions or concerns. See intervention summary for education details and skills performed. Plan of care, progress towards goals, and visit frequency reviewed with patient. Patient demonstrated a need for further skilled SN services for wound/skin care, infusion care, labs and infection control/prevention Current Discharge plan: self-care and family support RECOMMENDATION: Next visit to focus on (be specific): PICC care, incision monitoing, labs documented in this encounterMercy [facility]03-22-2022 Miscellaneous Notes* Telephone Encounter - Javon Zimmerman Ma - 06/01/2021 11:37 AM EDT Please review and advise documented in this encounterMercy [facility]03-21-2022 Miscellaneous Notes* SN Routine IV care and labs - Payton Haas RN - 05/31/2021 3:45 PM EDT SITUATION: Residential routine IV for IV care and labs visit completed today. patient reports the following: Allergies--reviewed Medications--reviewed current medications Falls--None BACKGROUND: Reason for Home Care: IV antibiotics. wound care ASSESSMENT: SN greeted at door by patient no DME and demonstrates stable gait. Patient appears in no acute distress. Patient/CG concerns verbalized today: none Vitals (see flow sheet for details): stable SN findings today: No new or abnormal findings today. Patient lives in a 2 story home with family. Patient states she has some pain today in head. Respirations clear and easy. heart sounds regular. Bowel sounds in all quadrants. Patient states her pump was beeping last night air in line- with no air in line. Nurse explained that sometimes you have to take out the tubing from pump and put it back in- patient did this and it stopped beeping. Patient is independent with IV antibiotics. Labs drawn per physician order and wound care completed- measurments documented. Picc care completed with no complications. Patient does not have any questions or concerns at this time. IV care completed with no issues or concerns noted or reported. See intervention summary for education details and skills performed. Plan of care, progress towards goals, and visit frequency reviewed with patient. Patient demonstrated a need for further skilled SN services for wound/skin care.infusion care. labs Current Discharge plan: self-care and family support RECOMMENDATION: Next visit to focus on (be specific): Labs Picc Care documented in this encounterMer[facility]03-07-2022 Miscellaneous Notes* Telephone Encounter - Yessenia Rodriguez MD - 05/17/2021 1:46 PM EST Yes I will * Telephone Encounter - Miguelina Acevedo LPN - 05/17/2021 12:33 PM EST Yessenia Rodriguez MD Please advise if you are agreeable to signing and following for C services? Our Clinicians will be sending the Plan of Care to you for review and approval. They will reach out for any appropriate orders required to provide home care services for the patient. We are not able to initiate HHC services without a following provider. Thank you and we would be happy to answer any questions. Miguelina Acevedo LPN 05/17/2021 12:34 PM documented in this encounterMercy [facility]10-27-2020 History of Past illness Narrative* Problem Noted Date Resolved Date Obesity, Class III, BMI >= 40 01/07/2020 Hypertensive emergency 11/12/2019 0 Obesity, Class III, BMI >= 40 11/12/2019 documented as of this encounter (statuses as of 05/31/2021) [facility] of [facility] illness Narrative* Problem Noted Date Resolved Date Obesity, Class III, BMI >= 40 01/07/2020 Hypertensive emergency 11/12/2019 0 Obesity, Class III, BMI >= 40 11/12/2019 documented as of this encounter (statuses as of 06/01/2021) [facility] of Past illness Narrative* Problem Noted Date Resolved Date Obesity, Class III, BMI >= 40 01/07/2020 Hypertensive emergency 11/12/2019 0 Obesity, Class III, BMI >= 40 11/12/2019 documented as of this encounter (statuses as of 06/07/2021) [place] [id number] History of Past illness Narrative* Problem Noted Date Resolved Date Obesity, Class III, BMI >= 40 01/07/2020 Hypertensive emergency 11/12/2019 0 Obesity, Class III, BMI >= 40 11/12/2019 documented as of this encounter (statuses as of 06/07/2021) [facility] illness Narrative* Problem Noted Date Resolved Date Obesity, Class III, BMI >= 40 01/07/2020 Hypertensive emergency 11/12/2019 0 Obesity, Class III, BMI >= 40 11/12/2019 documented as of this encounter (statuses as of 06/15/2021) [facility] illness Narrative* Problem Noted Date Resolved Date Obesity, Class III, BMI >= 40 01/07/2020 Hypertensive emergency 11/12/2019 0 Obesity, Class III, BMI >= 40 11/12/2019 documented as of this encounter (statuses as of 06/17/2021) [facility] illness Narrative* Problem Noted Date Resolved Date Obesity, Class III, BMI >= 40 01/07/2020 Hypertensive emergency 11/12/2019 0 Obesity, Class III, BMI >= 40 11/12/2019 documented as of this encounter (statuses as of 06/17/2021) [facility] illness Narrative* Problem Noted Date Resolved Date Obesity, Class III, BMI >= 40 01/07/2020 Hypertensive emergency 11/12/2019 0 Obesity, Class III, BMI >= 40 11/12/2019 documented as of this encounter (statuses as of 06/21/2021) [address]2020 History of Past illness Narrative* Problem Noted Date Resolved Date Obesity, Class III, BMI >= 40 01/07/2020 Hypertensive emergency 11/12/2019 0 Obesity, Class III, BMI >= 40 11/12/2019 documented as of this encounter (statuses as of 06/24/2021) [place] [id number] History of Past illness Narrative* Problem Noted Date Resolved Date Obesity, Class III, BMI >= 40 01/07/2020 Hypertensive emergency 11/12/2019 0 Obesity, Class III, BMI >= 40 11/12/2019 documented as of this encounter (statuses as of 06/24/2021) [facility] Narrative* Problem Noted Date Resolved Date Obesity, Class III, BMI >= 40 01/07/2020 Hypertensive emergency 11/12/2019 0 Obesity, Class III, BMI >= 40 11/12/2019 documented as of this encounter (statuses as of 06/26/2021) [facility] Narrative* Problem Noted Date Resolved Date Obesity, Class III, BMI >= 40 01/07/2020 Hypertensive emergency 11/12/2019 0 Obesity, Class III, BMI >= 40 11/12/2019 documented as of this encounter (statuses as of 06/26/2021) [facility] Narrative* Problem Noted Date Resolved Date Obesity, Class III, BMI >= 40 01/07/2020 Hypertensive emergency 11/12/2019 0 Obesity, Class III, BMI >= 40 11/12/2019 documented as of this encounter (statuses as of 07/05/2021) [facility] Narrative* Problem Noted Date Resolved Date Obesity, Class III, BMI >= 40 01/07/2020 Hypertensive emergency 11/12/2019 0 Obesity, Class III, BMI >= 40 11/12/2019 documented as of this encounter (statuses as of 08/26/2021) [facility] Narrative* Problem Noted Date Resolved Date Obesity, Class III, BMI >= 40 01/07/2020 Hypertensive emergency 11/12/2019 0 Obesity, Class III, BMI >= 40 11/12/2019 documented as of this encounter (statuses as of 09/27/2021) [facility] Narrative* Problem Noted Date Resolved Date Obesity, Class III, BMI >= 40 01/07/2020 Hypertensive emergency 11/12/2019 0 Obesity, Class III, BMI >= 40 11/12/2019 documented as of this encounter (statuses as of 11/26/2021) [facility] Narrative* Problem Noted Date Resolved Date Obesity, Class III, BMI >= 40 01/07/2020 Hypertensive emergency 11/12/2019 0 Obesity, Class III, BMI >= 40 11/12/2019 documented as of this encounter (statuses as of 12/09/2021) [facility] Narrative* Problem Noted Date Resolved Date Obesity, Class III, BMI >= 40 01/07/2020 Hypertensive emergency 11/12/2019 0 Obesity, Class III, BMI >= 40 11/12/2019 documented as of this encounter (statuses as of 12/28/2021) [facility] Narrative* Problem Noted Date Resolved Date Obesity, Class III, BMI >= 40 01/07/2020 Hypertensive emergency 11/12/2019 0 Obesity, Class III, BMI >= 40 11/12/2019 documented as of this encounter (statuses as of 01/28/2022) [facility] Narrative* Problem Noted Date Resolved Date Obesity, Class III, BMI >= 40 01/07/2020 Hypertensive emergency 11/12/2019 0 Obesity, Class III, BMI >= 40 11/12/2019 documented as of this encounter (statuses as of 02/14/2022) [facility] Narrative* Problem Noted Date Resolved Date Obesity, Class III, BMI >= 40 01/07/2020 Hypertensive emergency 11/12/2019 0 Obesity, Class III, BMI >= 40 11/12/2019 documented as of this encounter (statuses as of 02/17/2022) [facility] Narrative* Problem Noted Date Resolved Date Obesity, Class III, BMI >= 40 01/07/2020 Hypertensive emergency 11/12/2019 0 Obesity, Class III, BMI >= 40 11/12/2019 documented as of this encounter (statuses as of 03/28/2022) [facility] Narrative* Problem Noted Date Resolved Date Obesity, Class III, BMI >= 40 01/07/2020 Hypertensive emergency 11/12/2019 0 Obesity, Class III, BMI >= 40 11/12/2019 documented as of this encounter (statuses as of 03/28/2022) [facility] Narrative* Problem Noted Date Resolved Date Obesity, Class III, BMI >= 40 01/07/2020 Hypertensive emergency 11/12/2019 0 Obesity, Class III, BMI >= 40 11/12/2019 documented as of this encounter (statuses as of 03/28/2022) [facility] Narrative* Problem Noted Date Resolved Date Obesity, Class III, BMI >= 40 01/07/2020 Hypertensive emergency 11/12/2019 0 Obesity, Class III, BMI >= 40 11/12/2019 documented as of this encounter (statuses as of 04/04/2022) [facility] Narrative* Problem Noted Date Resolved Date Obesity, Class III, BMI >= 40 01/07/2020 Hypertensive emergency 11/12/2019 0 Obesity, Class III, BMI >= 40 11/12/2019 documented as of this encounter (statuses as of 04/08/2022) [facility] Narrative* Problem Noted Date Resolved Date Obesity, Class III, BMI >= 40 01/07/2020 Hypertensive emergency 11/12/2019 0 Obesity, Class III, BMI >= 40 11/12/2019 documented as of this encounter (statuses as of 04/12/2022) [facility] Narrative* Problem Noted Date Resolved Date Obesity, Class III, BMI >= 40 01/07/2020 Hypertensive emergency 11/12/2019 0 Obesity, Class III, BMI >= 40 11/12/2019 documented as of this encounter (statuses as of 04/13/2022) [facility] Narrative* Problem Noted Date Resolved Date Obesity, Class III, BMI >= 40 01/07/2020 Hypertensive emergency 11/12/2019 0 Obesity, Class III, BMI >= 40 11/12/2019 documented as of this encounter (statuses as of 04/26/2022) [facility] Narrative* Problem Noted Date Resolved Date Obesity, Class III, BMI >= 40 01/07/2020 Hypertensive emergency 11/12/2019 0 Obesity, Class III, BMI >= 40 11/12/2019 documented as of this encounter (statuses as of 04/28/2022) [facility] Narrative* Problem Noted Date Resolved Date Obesity, Class III, BMI >= 40 01/07/2020 Hypertensive emergency 11/12/2019 0 Obesity, Class III, BMI >= 40 11/12/2019 documented as of this encounter (statuses as of 05/04/2022) [facility] Narrative* Problem Noted Date Resolved Date Obesity, Class III, BMI >= 40 01/07/2020 Hypertensive emergency 11/12/2019 0 Obesity, Class III, BMI >= 40 11/12/2019 documented as of this encounter (statuses as of 05/04/2022) [place] [id number] History of Past illness Narrative* Problem Noted Date Resolved Date Obesity, Class III, BMI >= 40 01/07/2020 Hypertensive emergency 11/12/2019 0 Obesity, Class III, BMI >= 40 11/12/2019 documented as of this encounter (statuses as of 05/13/2022) [facility] Narrative* Problem Noted Date Resolved Date Obesity, Class III, BMI >= 40 01/07/2020 Hypertensive emergency 11/12/2019 0 Obesity, Class III, BMI >= 40 11/12/2019 documented as of this encounter (statuses as of 05/13/2022) [facility] Narrative* Problem Noted Date Resolved Date Obesity, Class III, BMI >= 40 01/07/2020 Hypertensive emergency 11/12/2019 0 Obesity, Class III, BMI >= 40 11/12/2019 documented as of this encounter (statuses as of 05/16/2022) [facility] Narrative* Problem Noted Date Resolved Date Obesity, Class III, BMI >= 40 01/07/2020 Hypertensive emergency 11/12/2019 0 Obesity, Class III, BMI >= 40 11/12/2019 documented as of this encounter (statuses as of 05/18/2022) [facility] Narrative* Problem Noted Date Resolved Date Obesity, Class III, BMI >= 40 01/07/2020 Hypertensive emergency 11/12/2019 0 Obesity, Class III, BMI >= 40 11/12/2019 documented as of this encounter (statuses as of 05/18/2022) [address]-2020 History of Past illness Narrative* Problem Noted Date Resolved Date Obesity, Class III, BMI >= 40 01/07/2020 Hypertensive emergency 11/12/2019 0 Obesity, Class III, BMI >= 40 11/12/2019 documented as of this encounter (statuses as of 05/24/2022) [address]27-2020 History of Past illness Narrative* Problem Noted Date Resolved Date Obesity, Class III, BMI >= 40 01/07/2020 Hypertensive emergency 11/12/2019 0 Obesity, Class III, BMI >= 40 11/12/2019 documented as of this encounter (statuses as of 05/26/2022) [facility] Narrative* Problem Noted Date Resolved Date Obesity, Class III, BMI >= 40 01/07/2020 Hypertensive emergency 11/12/2019 0 Obesity, Class III, BMI >= 40 11/12/2019 documented as of this encounter (statuses as of 05/30/2022) [facility]arr[facility]* Problem Noted Date Resolved Date Obesity, Class III, BMI >= 40 01/07/2020 Hypertensive emergency 11/12/2019 0 Obesity, Class III, BMI >= 40 11/12/2019 documented as of this encounter (statuses as of 05/31/2022) [facility] Narrative* Problem Noted Date Resolved Date Obesity, Class III, BMI >= 40 01/07/2020 Hypertensive emergency 11/12/2019 0 Obesity, Class III, BMI >= 40 11/12/2019 documented as of this encounter (statuses as of 06/09/2022) [facility] Narrative* Problem Noted Date Resolved Date Obesity, Class III, BMI >= 40 01/07/2020 Hypertensive emergency 11/12/2019 0 Obesity, Class III, BMI >= 40 11/12/2019 documented as of this encounter (statuses as of 06/09/2022) [facility] Narrative* Problem Noted Date Resolved Date Obesity, Class III, BMI >= 40 01/07/2020 Hypertensive emergency 11/12/2019 0 Obesity, Class III, BMI >= 40 11/12/2019 documented as of this encounter (statuses as of 06/09/2022) [facility] Narrative* Problem Noted Date Resolved Date Obesity, Class III, BMI >= 40 01/07/2020 Hypertensive emergency 11/12/2019 0 Obesity, Class III, BMI >= 40 11/12/2019 documented as of this encounter (statuses as of 06/15/2022) [facility] Narrative* Problem Noted Date Resolved Date Obesity, Class III, BMI >= 40 01/07/2020 Hypertensive emergency 11/12/2019 0 Obesity, Class III, BMI >= 40 11/12/2019 documented as of this encounter (statuses as of 06/21/2022) [facility] Narrative* Problem Noted Date Resolved Date Obesity, Class III, BMI >= 40 01/07/2020 Hypertensive emergency 11/12/2019 0 Obesity, Class III, BMI >= 40 11/12/2019 documented as of this encounter (statuses as of 06/25/2022) [facility] Narrative* Problem Noted Date Resolved Date Obesity, Class III, BMI >= 40 01/07/2020 Hypertensive emergency 11/12/2019 0 Obesity, Class III, BMI >= 40 11/12/2019 documented as of this encounter (statuses as of 06/30/2022) [facility] Narrative* Problem Noted Date Resolved Date Obesity, Class III, BMI >= 40 01/07/2020 Hypertensive emergency 11/12/2019 0 Obesity, Class III, BMI >= 40 11/12/2019 documented as of this encounter (statuses as of 07/22/2022) [facility] Narrative* Problem Noted Date Resolved Date Obesity, Class III, BMI >= 40 01/07/2020 Hypertensive emergency 11/12/2019 0 Obesity, Class III, BMI >= 40 11/12/2019 documented as of this encounter (statuses as of 07/27/2022) [facility] Narrative* Problem Noted Date Resolved Date Obesity, Class III, BMI >= 40 01/07/2020 Hypertensive emergency 11/12/2019 0 Obesity, Class III, BMI >= 40 11/12/2019 documented as of this encounter (statuses as of 08/11/2022) [facility] Narrative* Problem Noted Date Resolved Date Obesity, Class III, BMI >= 40 01/07/2020 Hypertensive emergency 11/12/2019 0 Obesity, Class III, BMI >= 40 11/12/2019 documented as of this encounter (statuses as of 08/17/2022) [facility] Narrative* Problem Noted Date Resolved Date Obesity, Class III, BMI >= 40 01/07/2020 Hypertensive emergency 11/12/2019 0 Obesity, Class III, BMI >= 40 11/12/2019 documented as of this encounter (statuses as of 08/17/2022) [facility] Narrative* Problem Noted Date Resolved Date Obesity, Class III, BMI >= 40 01/07/2020 Hypertensive emergency 11/12/2019 0 Obesity, Class III, BMI >= 40 11/12/2019 documented as of this encounter (statuses as of 08/18/2022) [facility] N[facility]* Problem Noted Date Resolved Date Obesity, Class III, BMI >= 40 01/07/2020 Hypertensive emergency 11/12/2019 0 Obesity, Class III, BMI >= 40 11/12/2019 documented as of this encounter (statuses as of 09/06/2022) [address]27-2020 History of Past illness Narrative* Problem Noted Date Diagnosed Date Resolved Date Obesity, Class III, BMI >= 40 01/07/2020 07/14/2020 Hypertensive emergency 11/12/201911/14 Obesity, Class III, BMI >= 40 11/12/2019 11/28/2019 documented as of this encounter (statuses as of 10/19/2022) [facility]2020 History of Past illness Narrative* Problem Noted Date Diagnosed Date Resolved Date Obesity, Class III, BMI >= 40 01/07/2020 07/14/2020 Hypertensive emergency 11/12/201911/14 Obesity, Class III, BMI >= 40 11/12/2019 11/28/2019 documented as of this encounter (statuses as of 10/25/2022) [facility]2020 History of Past illness Narrative* Problem Noted Date Diagnosed Date Resolved Date Obesity, Class III, BMI >= 40 01/07/2020 07/14/2020 Hypertensive emergency 11/12/201911/14 Obesity, Class III, BMI >= 40 11/12/2019 11/28/2019 documented as of this encounter (statuses as of 10/26/2022) [facility]2020 History of Past illness Narrative* Problem Noted Date Diagnosed Date Resolved Date Obesity, Class III, BMI >= 40 01/07/2020 07/14/2020 Hypertensive emergency 11/12/201911/14 Obesity, Class III, BMI >= 40 11/12/2019 11/28/2019 documented as of this encounter (statuses as of 10/26/2022) [facility]2020 History of Past illness Narrative* Problem Noted Date Diagnosed Date Resolved Date Obesity, Class III, BMI >= 40 01/07/2020 07/14/2020 Hypertensive emergency 11/12/201911/14 Obesity, Class III, BMI >= 40 11/12/2019 11/28/2019 documented as of this encounter (statuses as of 10/26/2022) [facility]2020 History of Past illness Narrative* Problem Noted Date Diagnosed Date Resolved Date Obesity, Class III, BMI >= 40 01/07/2020 07/14/2020 Hypertensive emergency 11/12/201911/14 Obesity, Class III, BMI >= 40 11/12/2019 11/28/2019 documented as of this encounter (statuses as of 10/27/2022) [facility] History of Past illness Narrative* Problem Noted Date Diagnosed Date Resolved Date Obesity, Class III, BMI >= 40 01/07/2020 07/14/2020 Hypertensive emergency 11/12/201911/14 Obesity, Class III, BMI >= 40 11/12/2019 11/28/2019 documented as of this encounter (statuses as of 11/17/2022) [facility] History of Past illness Narrative* Problem Noted Date Diagnosed Date Resolved Date Obesity, Class III, BMI >= 40 01/07/2020 07/14/2020 Hypertensive emergency 11/12/201911/14 Obesity, Class III, BMI >= 40 11/12/2019 11/28/2019 documented as of this encounter (statuses as of 11/21/2022) [facility] History of Past illness Narrative* Problem Noted Date Diagnosed Date Resolved Date Obesity, Class III, BMI >= 40 01/07/2020 07/14/2020 Hypertensive emergency 11/12/201911/14 Obesity, Class III, BMI >= 40 11/12/2019 11/28/2019 documented as of this encounter (statuses as of 12/10/2022) [facility] History of Past illness Narrative* Problem Noted Date Diagnosed Date Resolved Date Obesity, Class III, BMI >= 40 01/07/2020 07/14/2020 Hypertensive emergency 11/12/201911/14 Obesity, Class III, BMI >= 40 11/12/2019 11/28/2019 documented as of this encounter (statuses as of 02/21/2023) [facility] History of Past illness Narrative* Problem Noted Date Diagnosed Date Resolved Date Obesity, Class III, BMI >= 40 01/07/2020 07/14/2020 Hypertensive emergency 11/12/201911/14 Obesity, Class III, BMI >= 40 11/12/2019 11/28/2019 documented as of this encounter (statuses as of 04/03/2023) [facility] History of Past illness Narrative* Problem Noted Date Diagnosed Date Resolved Date Obesity, Class III, BMI >= 40 01/07/2020 07/14/2020 Hypertensive emergency 11/12/201911/14 Obesity, Class III, BMI >= 40 11/12/2019 11/28/2019 documented as of this encounter (statuses as of 04/24/2023) [facility] History of Past illness Narrative* Problem Noted Date Diagnosed Date Resolved Date Obesity, Class III, BMI >= 40 01/07/2020 07/14/2020 Hypertensive emergency 11/12/201911/14 Obesity, Class III, BMI >= 40 11/12/2019 11/28/2019 documented as of this encounter (statuses as of 05/25/2023) [facility] History of Past illness Narrative* Problem Noted Date Diagnosed Date Resolved Date Obesity, Class III, BMI >= 40 01/07/2020 07/14/2020 Hypertensive emergency 11/12/201911/14 Obesity, Class III, BMI >= 40 11/12/2019 11/28/2019 documented as of this encounter (statuses as of 05/26/2023) [facility] Diagnosis Controlled type 2 diabetes mellitus without complication, without long-term current use of insulin (HCC)- Primary [facility] Diagnosis Controlled type 2 diabetes mellitus without complication, without long-term current use of insulin (HCC)- [facility] Diagnosis Wound dehiscence- Primary Disruption of external operation (surgical) wound Cerebral aneurysm, nonruptured S/P craniotomy Other postprocedural status [facility] Diagnosis Encounter for screening mammogram for breast cancer [facility] Diagnosis Hyperlipidemia associated with type 2 diabetes mellitus (HCC) [facility] Diagnosis Acquired skull defect- Primary Other specified acquired deformity of head [facility] Diagnosis Hyperlipidemia associated with type 2 diabetes mellitus (HCC) [facility] Diagnosis Encounter for screening for malignant neoplasm of colon- Primary Special screening for malignant neoplasms, colon Screening for colon cancer Special screening for malignant neoplasms, colon [facility] Diagnosis Wound drainage- Primary Open wound(s) (multiple) of unspecified site(s), without mention of complication Hx of craniotomy Other postprocedural status [facility] Diagnosis Acquired skull defect- Primary Other specified acquired deformity of head Intracranial aneurysm Cerebral aneurysm, nonruptured Postoperative infection, unspecified type, subsequent encounter Postoperative wound dehiscence, initial encounter Nonruptured cerebral aneurysm Cerebral aneurysm, nonruptured [facility]* Diagnosis Hyperlipidemia associated with type 2 diabetes mellitus (HCC) [facility]* Diagnosis Anterior cerebral aneurysm- Primary Cerebral aneurysm, nonruptured Status post aneurysm repair Other postprocedural status History of craniotomy Other postprocedural status Wound drainage Open wound(s) (multiple) of unspecified site(s), without mention of complication [facility]* Diagnosis FABIOLA (obstructive sleep apnea)- Primary Obstructive sleep apnea (adult) (pediatric) [facility]* Diagnosis Intracranial aneurysm Cerebral aneurysm, nonruptured Postoperative infection, unspecified type, subsequent encounter Acquired skull defect Other specified acquired deformity of head Postoperative wound dehiscence, initial encounter Nonruptured cerebral aneurysm Cerebral aneurysm, nonruptured [facility]* Diagnosis Hx of craniotomy- Primary Other postprocedural status Intracranial aneurysm Cerebral aneurysm, nonruptured [facility]* Diagnosis Hx of craniotomy- Primary Other postprocedural status Postoperative wound dehiscence, subsequent encounter Drainage from wound Open wound(s) (multiple) of unspecified site(s), without mention of complication [facility] Diagnosis FABIOLA (obstructive sleep apnea)- Primary Obstructive sleep apnea (adult) (pediatric) [facility]* Diagnosis Cpap setup- Primary Obstructive sleep apnea (adult) (pediatric) [facility]* Diagnosis Pap follow up- Primary Obstructive sleep apnea (adult) (pediatric) [facility]* Diagnosis Hyperlipidemia associated with type 2 diabetes mellitus (HCC) Lacunar stroke (HCC) Unspecified cerebral artery occlusion with cerebral infarction [facility]* Diagnosis Skin ulcer of scalp, limited to breakdown of skin (HCC)- Primary Hx of craniotomy Other postprocedural status [facility]* Diagnosis Skin ulcer of scalp, limited to breakdown of skin (HCC)- Primary Hx of craniotomy Other postprocedural status [facility]* Diagnosis Skin ulcer of scalp, limited to breakdown of skin (HCC)- Primary Hx of craniotomy Other postprocedural status [facility]* Diagnosis GONCALVES (dyspnea on exertion)- Primary Other dyspnea and respiratory abnormality [facility]* Diagnosis GONCALVES (dyspnea on exertion)- Primary Other dyspnea and respiratory abnormality Anxiety Anxiety state, unspecified Irritable bowel syndrome with diarrhea Irritable bowel syndrome [facility]* Diagnosis GONCALVES (dyspnea on exertion) Other dyspnea and respiratory abnormality [facility]* Diagnosis GONCALVES (dyspnea on exertion)- Primary Other dyspnea and respiratory abnormality [facility]* Diagnosis GONCALVES (dyspnea on exertion)- Primary Other dyspnea and respiratory abnormality Precordial pain Hypertension, essential Unspecified essential hypertension Mixed hyperlipidemia FABIOLA (obstructive sleep apnea) Obstructive sleep apnea (adult) (pediatric) Subaortic membrane Congenital subaortic stenosis [facility]* Diagnosis Controlled type 2 diabetes mellitus without complication, without long-term current use of insulin (HCC)- Primary Subaortic membrane Congenital subaortic stenosis Anxiety Anxiety state, unspecified Obesity, Class II, BMI 35-39.9 Obesity, unspecified [facility] Diagnosis GONCALVES (dyspnea on exertion) Other dyspnea and respiratory abnormality Hypertension, essential Unspecified essential hypertension Mixed hyperlipidemia Precordial pain FABIOLA (obstructive sleep apnea) Obstructive sleep apnea (adult) (pediatric) Subaortic membrane Congenital subaortic stenosis [facility]* Diagnosis Hx of craniotomy Other postprocedural status Postoperative wound dehiscence, subsequent encounter Drainage from wound Open wound(s) (multiple) of unspecified site(s), without mention of complication [facility]* Diagnosis Lacunar stroke (HCC)- Primary Unspecified cerebral artery occlusion with cerebral infarction [facility] Diagnosis Seborrheic dermatitis Seborrheic dermatitis, unspecified [facility] Diagnosis Encounter for screening mammogram for breast cancer [facility] Diagnosis Hyperlipidemia associated with type 2 diabetes mellitus (HCC) (HCC) documented in this encounter [facility] note* Diagnosis Spinal stenosis of lumbar region with neurogenic claudication- Primary Spinal stenosis, lumbar region, with neurogenic claudication FABIOLA (obstructive sleep apnea) Obstructive sleep apnea (adult) (pediatric) Intracranial aneurysm Cerebral aneurysm, nonruptured Subaortic membrane Congenital subaortic stenosis Hyperlipidemia associated with type 2 diabetes mellitus (HCC) (HCC) Hypertension, essential Unspecified essential hypertension Controlled type 2 diabetes mellitus without complication, without long-term current use of insulin ([facility]) Lacunar stroke ([facility]) Unspecified cerebral artery occlusion with cerebral infarction Seborrheic dermatitis Seborrheic dermatitis, unspecified [facility] Diagnosis Intracranial aneurysm- Primary Cerebral aneurysm, nonruptured Hypertension, essential Unspecified essential hypertension Intracranial aneurysm Cerebral aneurysm, nonruptured Postoperative pain Other acute postoperative pain Anxiety Anxiety state, unspecified Preoperative examination- Primary Preoperative examination, unspecified Intracranial aneurysm Cerebral aneurysm, nonruptured Controlled type 2 diabetes mellitus without complication, without long-term current use of insulin ([facility]) Cerebrovascular accident (CVA) due to embolism of other cerebral artery ([facility]) FABIOLA (obstructive sleep apnea) Obstructive sleep apnea (adult) (pediatric) Mixed hyperlipidemia Essential hypertension Unspecified essential hypertension Gastroesophageal reflux disease, unspecified whether esophagitis present Irritable bowel syndrome with diarrhea Irritable bowel syndrome Anxiety Anxiety state, unspecified Back pain, unspecified back location, unspecified back pain laterality, unspecified chronicity Obesity, Class II, BMI 35-39.9 Obesity, unspecified Encounter for preoperative screening laboratory testing for COVID-19 virus Wound dehiscence- Primary Disruption of external operation (surgical) wound Post-operative complication Unspecified complication of procedure, not elsewhere classified 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 Other postprocedural status Delayed surgical wound healing, initial encounter Decreased hearing of both ears Wound infection Posttraumatic wound infection not elsewhere classified Controlled type 2 diabetes mellitus without complication, without long-term current use of insulin ([facility]) Wound dehiscence Disruption of external operation (surgical) wound Postoperative pain Other acute postoperative pain Hypertension, essential Unspecified essential hypertension Diabetes mellitus type 2, controlled, without complications (HCC) Type II or unspecified type diabetes mellitus without mention of complication, not stated as uncontrolled Hyperlipidemia Other and unspecified hyperlipidemia Obesity, Class II, BMI 35-39.9 Obesity, unspecified FABIOLA (obstructive sleep apnea) Obstructive sleep apnea (adult) (pediatric) Spinal stenosis of lumbar region with neurogenic claudication- Primary Spinal stenosis, lumbar region, with neurogenic claudication [facility] Diagnosis Intracranial aneurysm- Primary Cerebral aneurysm, nonruptured Hypertension, essential Unspecified essential hypertension Intracranial aneurysm Cerebral aneurysm, nonruptured Postoperative pain Other acute postoperative pain Anxiety Anxiety state, unspecified Preoperative examination- Primary Preoperative examination, unspecified Intracranial aneurysm Cerebral aneurysm, nonruptured Controlled type 2 diabetes mellitus without complication, without long-term current use of insulin (HCC) Cerebrovascular accident (CVA) due to embolism of other cerebral artery (HCC) FABIOLA (obstructive sleep apnea) Obstructive sleep apnea (adult) (pediatric) Mixed hyperlipidemia Essential hypertension Unspecified essential hypertension Gastroesophageal reflux disease, unspecified whether esophagitis present Irritable bowel syndrome with diarrhea Irritable bowel syndrome Anxiety Anxiety state, unspecified Back pain, unspecified back location, unspecified back pain laterality, unspecified chronicity Obesity, Class II, BMI 35-39.9 Obesity, unspecified Encounter for preoperative screening laboratory testing for COVID-19 virus Wound dehiscence- Primary Disruption of external operation (surgical) wound Post-operative complication Unspecified complication of procedure, not elsewhere classified 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 Other postprocedural status Delayed surgical wound healing, initial encounter Decreased hearing of both ears Wound infection Posttraumatic wound infection not elsewhere classified Controlled type 2 diabetes mellitus without complication, without long-term current use of insulin ([facility]) Wound dehiscence Disruption of external operation (surgical) wound Postoperative pain Other acute postoperative pain Hypertension, essential Unspecified essential hypertension Diabetes mellitus type 2, controlled, without complications (HCC) Type II or unspecified type diabetes mellitus without mention of complication, not stated as uncontrolled Hyperlipidemia Other and unspecified hyperlipidemia Obesity, Class II, BMI 35-39.9 Obesity, unspecified FABIOLA (obstructive sleep apnea) Obstructive sleep apnea (adult) (pediatric) Skin rash- Primary Rash and other nonspecific skin eruption [facility] Diagnosis Intracranial aneurysm- Primary Cerebral aneurysm, nonruptured Hypertension, essential Unspecified essential hypertension Intracranial aneurysm Cerebral aneurysm, nonruptured Postoperative pain Other acute postoperative pain Anxiety Anxiety state, unspecified Preoperative examination- Primary Preoperative examination, unspecified Intracranial aneurysm Cerebral aneurysm, nonruptured Controlled type 2 diabetes mellitus without complication, without long-term current use of insulin ([facility]) Cerebrovascular accident (CVA) due to embolism of other cerebral artery (HCC) FABIOLA (obstructive sleep apnea) Obstructive sleep apnea (adult) (pediatric) Mixed hyperlipidemia Essential hypertension Unspecified essential hypertension Gastroesophageal reflux disease, unspecified whether esophagitis present Irritable bowel syndrome with diarrhea Irritable bowel syndrome Anxiety Anxiety state, unspecified Back pain, unspecified back location, unspecified back pain laterality, unspecified chronicity Obesity, Class II, BMI 35-39.9 Obesity, unspecified Encounter for preoperative screening laboratory testing for COVID-19 virus Wound dehiscence- Primary Disruption of external operation (surgical) wound Post-operative complication Unspecified complication of procedure, not elsewhere classified 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 Other postprocedural status Delayed surgical wound healing, initial encounter Decreased hearing of both ears Wound infection Posttraumatic wound infection not elsewhere classified Controlled type 2 diabetes mellitus without complication, without long-term current use of insulin ([facility]) Wound dehiscence Disruption of external operation (surgical) wound Postoperative pain Other acute postoperative pain Hypertension, essential Unspecified essential hypertension Diabetes mellitus type 2, controlled, without complications ([facility]) Type II or unspecified type diabetes mellitus without mention of complication, not stated as uncontrolled Hyperlipidemia Other and unspecified hyperlipidemia Obesity, Class II, BMI 35-39.9 Obesity, unspecified FABIOLA (obstructive sleep apnea) Obstructive sleep apnea (adult) (pediatric) Rash- Primary Rash and other nonspecific skin eruption Hx of craniotomy Other postprocedural status Skin ulcer of scalp, limited to breakdown of skin ([facility]) Wound dehiscence Disruption of external operation (surgical) wound Encounter for immunization Need for other specified prophylactic vaccination against single bacterial disease Controlled type 2 diabetes mellitus without complication, without long-term current use of insulin (HCC) Gastroesophageal reflux disease without esophagitis Esophageal reflux Bronchospasm Acute bronchospasm [facility] Diagnosis Intracranial aneurysm- Primary Cerebral aneurysm, nonruptured Hypertension, essential Unspecified essential hypertension Intracranial aneurysm Cerebral aneurysm, nonruptured Postoperative pain Other acute postoperative pain Anxiety Anxiety state, unspecified Preoperative examination- Primary Preoperative examination, unspecified Intracranial aneurysm Cerebral aneurysm, nonruptured Controlled type 2 diabetes mellitus without complication, without long-term current use of insulin (HCC) Cerebrovascular accident (CVA) due to embolism of other cerebral artery (HCC) FABIOLA (obstructive sleep apnea) Obstructive sleep apnea (adult) (pediatric) Mixed hyperlipidemia Essential hypertension Unspecified essential hypertension Gastroesophageal reflux disease, unspecified whether esophagitis present Irritable bowel syndrome with diarrhea Irritable bowel syndrome Anxiety Anxiety state, unspecified Back pain, unspecified back location, unspecified back pain laterality, unspecified chronicity Obesity, Class II, BMI 35-39.9 Obesity, unspecified Encounter for preoperative screening laboratory testing for COVID-19 virus Wound dehiscence- Primary Disruption of external operation (surgical) wound Post-operative complication Unspecified complication of procedure, not elsewhere classified 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 Other postprocedural status Delayed surgical wound healing, initial encounter Decreased hearing of both ears Wound infection Posttraumatic wound infection not elsewhere classified Controlled type 2 diabetes mellitus without complication, without long-term current use of insulin ([facility]) Wound dehiscence Disruption of external operation (surgical) wound Postoperative pain Other acute postoperative pain Hypertension, essential Unspecified essential hypertension Diabetes mellitus type 2, controlled, without complications ([facility]) Type II or unspecified type diabetes mellitus without mention of complication, not stated as uncontrolled Hyperlipidemia Other and unspecified hyperlipidemia Obesity, Class II, BMI 35-39.9 Obesity, unspecified AFBIOLA (obstructive sleep apnea) Obstructive sleep apnea (adult) (pediatric) Bronchospasm- Primary Acute bronchospasm [facility] Diagnosis Intracranial aneurysm- Primary Cerebral aneurysm, nonruptured Hypertension, essential Unspecified essential hypertension Intracranial aneurysm Cerebral aneurysm, nonruptured Postoperative pain Other acute postoperative pain Anxiety Anxiety state, unspecified Preoperative examination- Primary Preoperative examination, unspecified Intracranial aneurysm Cerebral aneurysm, nonruptured Controlled type 2 diabetes mellitus without complication, without long-term current use of insulin (HCC) Cerebrovascular accident (CVA) due to embolism of other cerebral artery (HCC) FABIOLA (obstructive sleep apnea) Obstructive sleep apnea (adult) (pediatric) Mixed hyperlipidemia Essential hypertension Unspecified essential hypertension Gastroesophageal reflux disease, unspecified whether esophagitis present Irritable bowel syndrome with diarrhea Irritable bowel syndrome Anxiety Anxiety state, unspecified Back pain, unspecified back location, unspecified back pain laterality, unspecified chronicity Obesity, Class II, BMI 35-39.9 Obesity, unspecified Encounter for preoperative screening laboratory testing for COVID-19 virus Wound dehiscence- Primary Disruption of external operation (surgical) wound Post-operative complication Unspecified complication of procedure, not elsewhere classified 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 Other postprocedural status Delayed surgical wound healing, initial encounter Decreased hearing of both ears Wound infection Posttraumatic wound infection not elsewhere classified Controlled type 2 diabetes mellitus without complication, without long-term current use of insulin (HCC) Wound dehiscence Disruption of external operation (surgical) wound Postoperative pain Other acute postoperative pain Hypertension, essential Unspecified essential hypertension Diabetes mellitus type 2, controlled, without complications (HCC) Type II or unspecified type diabetes mellitus without mention of complication, not stated as uncontrolled Hyperlipidemia Other and unspecified hyperlipidemia Obesity, Class II, BMI 35-39.9 Obesity, unspecified FABIOLA (obstructive sleep apnea) Obstructive sleep apnea (adult) (pediatric) Encounter for screening [facility] for [facility] Diagnosis Intracranial aneurysm- Primary Cerebral aneurysm, nonruptured Hypertension, essential Unspecified essential hypertension Intracranial aneurysm Cerebral aneurysm, nonruptured Postoperative pain Other acute postoperative pain Anxiety Anxiety state, unspecified Preoperative examination- Primary Preoperative examination, unspecified Intracranial aneurysm Cerebral aneurysm, nonruptured Controlled type 2 diabetes mellitus without complication, without long-term current use of insulin (HCC) Cerebrovascular accident (CVA) due to embolism of other cerebral artery (HCC) FABIOLA (obstructive sleep apnea) Obstructive sleep apnea (adult) (pediatric) Mixed hyperlipidemia Essential hypertension Unspecified essential hypertension Gastroesophageal reflux disease, unspecified whether esophagitis present Irritable bowel syndrome with diarrhea Irritable bowel syndrome Anxiety Anxiety state, unspecified Back pain, unspecified back location, unspecified back pain laterality, unspecified chronicity Obesity, Class II, BMI 35-39.9 Obesity, unspecified Encounter for preoperative screening laboratory testing for COVID-19 virus Wound dehiscence- Primary Disruption of external operation (surgical) wound Post-operative complication Unspecified complication of procedure, not elsewhere classified 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 Other postprocedural status Delayed surgical wound healing, initial encounter Decreased hearing of both ears Wound infection Posttraumatic wound infection not elsewhere classified Controlled type 2 diabetes mellitus without complication, without long-term current use of insulin (HCC) Wound dehiscence Disruption of external operation (surgical) wound Postoperative pain Other acute postoperative pain Hypertension, essential Unspecified essential hypertension Diabetes mellitus type 2, controlled, without complications (HCC) Type II or unspecified type diabetes mellitus without mention of complication, not stated as uncontrolled Hyperlipidemia Other and unspecified hyperlipidemia Obesity, Class II, BMI 35-39.9 Obesity, unspecified FABIOLA (obstructive sleep apnea) Obstructive sleep apnea (adult) (pediatric) 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 Unspecified acquired deformity of head [facility] Diagnosis Intracranial aneurysm- Primary Cerebral aneurysm, nonruptured Hypertension, essential Unspecified essential hypertension Intracranial aneurysm Cerebral aneurysm, nonruptured Postoperative pain Other acute postoperative pain Anxiety Anxiety state, unspecified Preoperative examination- Primary Preoperative examination, unspecified Intracranial aneurysm Cerebral aneurysm, nonruptured Controlled type 2 diabetes mellitus without complication, without long-term current use of insulin (HCC) Cerebrovascular accident (CVA) due to embolism of other cerebral artery (HCC) FABIOLA (obstructive sleep apnea) Obstructive sleep apnea (adult) (pediatric) Mixed hyperlipidemia Essential hypertension Unspecified essential hypertension Gastroesophageal reflux disease, unspecified whether esophagitis present Irritable bowel syndrome with diarrhea Irritable bowel syndrome Anxiety Anxiety state, unspecified Back pain, unspecified back location, unspecified back pain laterality, unspecified chronicity Obesity, Class II, BMI 35-39.9 Obesity, unspecified Encounter for preoperative screening laboratory testing for COVID-19 virus Wound dehiscence- Primary Disruption of external operation (surgical) wound Post-operative complication Unspecified complication of procedure, not elsewhere classified 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 Other postprocedural status Delayed surgical wound healing, initial encounter Decreased hearing of both ears Wound infection Posttraumatic wound infection not elsewhere classified Controlled type 2 diabetes mellitus without complication, without long-term current use of insulin (HCC) Wound dehiscence Disruption of external operation (surgical) wound Postoperative pain Other acute postoperative pain Hypertension, essential Unspecified essential hypertension Diabetes mellitus type 2, controlled, without complications ([facility]) Type II or unspecified type diabetes mellitus without mention of complication, not stated as uncontrolled Hyperlipidemia Other and unspecified hyperlipidemia Obesity, Class II, BMI 35-39.9 Obesity, unspecified FABIOLA (obstructive sleep apnea) Obstructive sleep apnea (adult) (pediatric) Abdominal pain, unspecified abdominal location- Primary [facility] Diagnosis Intracranial aneurysm- Primary Cerebral aneurysm, nonruptured Hypertension, essential Unspecified essential hypertension Intracranial aneurysm Cerebral aneurysm, nonruptured Postoperative pain Other acute postoperative pain Anxiety Anxiety state, unspecified Preoperative examination- Primary Preoperative examination, unspecified Intracranial aneurysm Cerebral aneurysm, nonruptured Controlled type 2 diabetes mellitus without complication, without long-term current use of insulin (HCC) Cerebrovascular accident (CVA) due to embolism of other cerebral artery (HCC) FABIOLA (obstructive sleep apnea) Obstructive sleep apnea (adult) (pediatric) Mixed hyperlipidemia Essential hypertension Unspecified essential hypertension Gastroesophageal reflux disease, unspecified whether esophagitis present Irritable bowel syndrome with diarrhea Irritable bowel syndrome Anxiety Anxiety state, unspecified Back pain, unspecified back location, unspecified back pain laterality, unspecified chronicity Obesity, Class II, BMI 35-39.9 Obesity, unspecified Encounter for preoperative screening laboratory testing for COVID-19 virus Wound dehiscence- Primary Disruption of external operation (surgical) wound Post-operative complication Unspecified complication of procedure, not elsewhere classified 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 Other postprocedural status Delayed surgical wound healing, initial encounter Decreased hearing of both ears Wound infection Posttraumatic wound infection not elsewhere classified Controlled type 2 diabetes mellitus without complication, without long-term current use of insulin (HCC) Wound dehiscence Disruption of external operation (surgical) wound Postoperative pain Other acute postoperative pain Hypertension, essential Unspecified essential hypertension Diabetes mellitus type 2, controlled, without complications (HCC) Type II or unspecified type diabetes mellitus without mention of complication, not stated as uncontrolled Hyperlipidemia Other and unspecified hyperlipidemia Obesity, Class II, BMI 35-39.9 Obesity, unspecified FABIOLA (obstructive sleep apnea) Obstructive sleep apnea (adult) (pediatric) Intracranial aneurysm- Primary Cerebral aneurysm, nonruptured Hx of craniotomy Other postprocedural status Skin ulcer of scalp, limited to breakdown of skin (HCC) documented in this encounter [facility] Discharge instructions Additional Instructions Continue to push fluids and small frequent sips. I would recommend taking an [id number] antacid such as Pepcid or Nexium once to twice a day until your stomach is settled and is feeling better. Your blood work showed signs of dehydration and you are given 2 L of IV fluid in the emergency room. Your kidney function was normal and no significant electrolyte abnormalities. Your urinalysis was concerning for urinary tract infection. We did send off for culture and started on antibiotics. If your culture requires that we change antibiotics we will contact you in about 48 hours.[facility] Work Phone: Patient's home Plan of care note* Visit Details Visit Type -SN ROUTINE IV Discipline -Residential Problems Problem Description Start Date Status Goals Interve ntions Medication Education Disciplines: Skilled Services 05/18/2021 Active 1 goal linked to scheduled/documente d intervention 1 goal intervention scheduled/documente d in this visit Physician Specific Parameters Disciplines: Skilled Services 05/18/2021 Active 1 goal linked to scheduled/documente d intervention 1 goal intervention scheduled/documente d in this visit Risk for Falls Disciplines: Skilled Services 05/18/2021 Active 1 goal linked to scheduled/documente d intervention 1 goal intervention scheduled/documente d in this visit Pain Disciplines: Skilled Services 05/18/2021 Active 1 goal linked to scheduled/documente d intervention 1 goal intervention scheduled/documente d in this visit Discharge Disciplines: Skilled Services 05/18/2021 Active 1 goal linked to scheduled/documente d intervention 1 goal intervention scheduled/documente d in this visit SN IV THERAPY Disciplines: SN 05/18/2021 Active 1 goal linked to scheduled/documente d intervention 1 goal intervention scheduled/documente d in this visit SN Learning Assessment Disciplines: SN 05/18/2021 Active 1 goal linked to scheduled/documente d intervention 1 goal intervention scheduled/documente d in this visit SN Labwork Disciplines: SN 05/18/2021 Active 1 goal linked to scheduled/documente d intervention 1 goal intervention scheduled/documente d in this visit Goals Goal Associated Problem Outcome Goal Met? Visit Notes Patient/caregiver will demonstrate ability to obtain, store, identify and administer ordered medications, keep accurate medication list in home, and adhere to medication schedule Medication Education No Patient to maintain parameters within physician-specified ranges Physician Specific Parameters No Manage Risk for falls Description: Patient/caregiver will verbalize knowledge of individualized fall prevention strategies by wear nonslip footwear, watch out for IV tubing, use a nightlight. Risk for Falls No Manage Pain Description: Patient/caregiver will verbalize knowledge and understanding of appropriate techniques to control pain, including pain medication. Patient will verbalize or demonstrate an acceptable level of pain as evidenced by a pain score of 0/10 and improvement in ability to perform activities of daily living to be achieved by discharge. Pain No Manage discharge planning Description: Patient/caregiver will verbalize understanding of ongoing discharge plan provided related to disease management, arrangements for outpatient and/or community services, obtaining medications, supplies, and DME, as needed. Discharge No Patient/Caregiver will demonstrate independence with all aspects of Infusion and access device management SN IV THERAPY No Demonstrate understanding of education Description: Patient and/or caregiver will verbalize understanding of educational instruction provided. SN Learning Assessment No SN to obtain ordered lab specimen without difficulty SN Labwork No Interventions Intervention Associated Problem/Goal Status Variance Visit Notes Medication Education Description: Evaluate/instruct patient/caregiver on obtaining, storing, identifying and administering ordered medications as well as keeping accurate medication list in the home and adhereing to medication schedule Problem:Medication Education Goal:Patient/caregive r will demonstrate ability to obtain, store, identify and administer ordered medications, keep accurate medication list in home, and adhere to medication schedule Completed Patient instructed on importance of keeping accurate medication list in home, adhering to medication schedule, proper storage of medications, Medication, route, dose, frequency, purpose, and side effects of medications, disposing of old and out of date medications, how to order refills, med production planner set up and med diary and reminders. SPO2 Description: Notify Dr. Yessenia Rodriguez MD if pulse ox is <92% at rest. Problem:Physician Specific Parameters Goal:Patient to maintain parameters within physician-specified ranges Completed Instruct on individual fall risk factors and strategies to prevent falls and injuries caused by falls. Problem:Risk for Falls Goal:Manage Risk for falls Completed SN: Patient instructed on Managing Pain: Recommended pain medication schedule and management of side effects to minimize fall risk Instruct on pain and instruct on strategies to control pain Problem:Pain Goal:Manage Pain Completed patient instructed on techniques to control pain including Pharmacological measures and Non-Pharmacological measures; rest, positioning/elevation, mobility/therapeutic exercise, distraction, breathing/relaxation and use of DME/assistive devices. Instruct on ongoing discharge plan Problem:Discharge Goal:Manage discharge planning Completed Ongoing Discharge plan: Discharge plan discussed with patient including frequency and duration for home SN and plan for transition to: live independently at home without ongoing services. Complete PICC catheter care per order Description: Measure external catheter length with every dressing change. Measure upper arm circumference 10 cm above the anticubital fossa at initial assessment and when clinically indicated. Change needleless connector and extension tubing weekly and PRN. Change dressing weekly and PRN for lifting edges of dressing, visible soiling, presence of moisture, drainage or blood, compromised skin integrity. Cleanse site with 2% chlorhexidine gluconate for 30 seconds. Allow to air dry completely. Apply skin barrier solution and allow to air dry completely. Cover/secure with StatLock , BIOPATCH and transparent semi-permeable dressing. Problem:SN IV THERAPY Goal:Patient/Caregive r will demonstrate independence with all aspects of Infusion and access device management Completed Instruct and educate on knowledge deficits Problem:SN Learning Assessment Goal:Demonstrate understanding of education Completed patient verbalize and/or demonstrate understanding of nursing education completed today. Education methods include: verbal cues. Further education required to improve knowledge and compliance with fall prevention/home safety strategies and incision/wound care management. SN to obtain blood specimen (1) Description: T81.30XA Physician: Amairani Quintero MD Blood Work: cbc/d,creat,[facility] qmonday (Fax lab results to pharmacy: [phone]) If unable to draw blood through IV access device, may draw blood peripherally. Problem:SN Labwork Goal:SN to obtain ordered lab specimen without difficulty Completed documented in this encounter [facility]'s home Plan of care note* Visit Details Visit Type -SN ROUTINE IV Discipline -Residential Problems Problem Description Start Date Status Goals Interve ntions Medication Education Disciplines: Skilled Services 05/18/2021 Active 1 goal linked to scheduled/documente d intervention 1 goal intervention scheduled/documente d in this visit Physician Specific Parameters Disciplines: Skilled Services 05/18/2021 Active 1 goal linked to scheduled/documente d intervention 1 goal intervention scheduled/documente d in this visit Risk for Falls Disciplines: Skilled Services 05/18/2021 Active 1 goal linked to scheduled/documente d intervention 1 goal intervention scheduled/documente d in this visit Diabetic Foot Care Disciplines: Skilled Services 05/18/2021 Active 1 goal linked to scheduled/documente d intervention 1 goal intervention scheduled/documente d in this visit High Risk Medications Disciplines: Skilled Services 05/18/2021 Active 1 goal linked to scheduled/documente d intervention 1 goal intervention scheduled/documente d in this visit Discharge Disciplines: Skilled Services 05/18/2021 Active 1 goal linked to scheduled/documente d intervention 1 goal intervention scheduled/documente d in this visit SN IV THERAPY Disciplines: SN 05/18/2021 Active 1 goal linked to scheduled/documente d intervention 2 goal interventions scheduled/documente d in this visit SN Integumentary/W ounds Disciplines: SN 05/18/2021 Active 1 goal linked to scheduled/documente d intervention 1 goal intervention scheduled/documente d in this visit SN Diabetes Disciplines: SN 05/18/2021 Active 1 goal linked to scheduled/documente d intervention 1 goal intervention scheduled/documente d in this visit SN Learning Assessment Disciplines: SN 05/18/2021 Active 1 goal linked to scheduled/documente d intervention 1 goal intervention scheduled/documente d in this visit SN Labwork Disciplines: SN 05/18/2021 Active 1 goal linked to scheduled/documente d intervention 1 goal intervention scheduled/documente d in this visit Goals Goal Associated Problem Outcome Goal Met? Visit Notes Patient/caregiver will demonstrate ability to obtain, store, identify and administer ordered medications, keep accurate medication list in home, and adhere to medication schedule Medication Education No Patient to maintain parameters within physician-specified ranges Physician Specific Parameters No Manage Risk for falls Description: Patient/caregiver will verbalize knowledge of individualized fall prevention strategies by wear nonslip footwear, watch out for IV tubing, use a nightlight. Risk for Falls No Manage diabetic foot care Description: Patient/caregiver will demonstrate basic understanding of and compliance with diabetic self-care management as evidenced by verbalizing purpose of daily foot care and assessment by discharge. Diabetic Foot Care No Patient/caregiver will teach back high risk medication side effect and precaution education High Risk Medications No Manage discharge planning Description: Patient/caregiver will verbalize understanding of ongoing discharge plan provided related to disease management, arrangements for outpatient and/or community services, obtaining medications, supplies, and DME, as needed. Discharge No Patient/Caregiver will demonstrate independence with all aspects of Infusion and access device management SN IV THERAPY No Patient/Caregiver will verbalize/demonstrate integumentary condition management and achieve improved healing SN Integumentary/Wounds No Improved management of diabetes Description: Improve diabetic management as evidenced by patient/caregiver able to teach back 4 diabetic management strategies by discharge. SN Diabetes No Demonstrate understanding of education Description: Patient and/or caregiver will verbalize understanding of educational instruction provided. SN Learning Assessment No SN to obtain ordered lab specimen without difficulty SN Labwork No Interventions Intervention Associated Problem/Goal Status Variance Visit Notes Medication Education Description: Evaluate/instruct patient/caregiver on obtaining, storing, identifying and administering ordered medications as well as keeping accurate medication list in the home and adhereing to medication schedule Problem:Medication Education Goal:Patient/caregive r will demonstrate ability to obtain, store, identify and administer ordered medications, keep accurate medication list in home, and adhere to medication schedule Completed Patient instructed on importance of keeping accurate medication list in home, adhering to medication schedule and proper storage of medications. SPO2 Description: Notify Dr. Yessenia Rodriguez MD if pulse ox is <92% at rest. Problem:Physician Specific Parameters Goal:Patient to maintain parameters within physician-specified ranges Completed Instruct on individual fall risk factors and strategies to prevent falls and injuries caused by falls. Problem:Risk for Falls Goal:Manage Risk for falls Completed no falls reported Monitor lower extremities for skin lesions and educate on proper foot care Problem:Diabetic Foot Care Goal:Manage diabetic foot care Completed patient instructed on diabetic foot care including daily skin inspection. Opioids- Instruct on high risk medication Problem:High Risk Medications Goal:Patient/caregive r will teach back high risk medication side effect and precaution education Completed patient instructed on the following: Possible side effects of opioid medication including sedation, decreased rate of breathing, and constipation. Instructed on reporting over sedation to prescribing physician, practice deep breathing techniques every hour while awake, and prevention of constipation by increasing water and fiber intake, increase activity as tolerated, and use stool softener as prescribed. Only take opioids as prescribed, do not share your medications, and take proper precautions in storing and properly disposing of opioids once no longer needed. Follow providers guidelines for driving and weaning from prescribed opioid. Instruct on ongoing discharge plan Problem:Discharge Goal:Manage discharge planning Completed Ongoing Discharge plan: Discharge plan discussed with patient including frequency and duration for home SN and plan for transition to: live independently at home without ongoing services. Complete PICC catheter care per order Description: Measure external catheter length with every dressing change. Measure upper arm circumference 10 cm above the anticubital fossa at initial assessment and when clinically indicated. Change needleless connector and extension tubing weekly and PRN. Change dressing weekly and PRN for lifting edges of dressing, visible soiling, presence of moisture, drainage or blood, compromised skin integrity. Cleanse site with 2% chlorhexidine gluconate for 30 seconds. Allow to air dry completely. Apply skin barrier solution and allow to air dry completely. Cover/secure with StatLock , BIOPATCH and transparent semi-permeable dressing. Problem:SN IV THERAPY Goal:Patient/Caregive r will demonstrate independence with all aspects of Infusion and access device management Completed Instruct patient/cargiver on management of infusion and access device Problem:SN IV THERAPY Goal:Patient/Caregive r will demonstrate independence with all aspects of Infusion and access device management Completed patient instructed on the following: name, purpose and goal of infusion therapy, how to contact [facility], how and when to contact the pharmacy, aseptic handling and maintaining a clean area for infusion therapy supplies, preparation and administration of infusion, safe handling, storage and disposal of infusion therapy supplies, medications, flushes and hazardous waste, flushing the venous access device and maintaining accurate records (I&O, weights, infusion times) Instruct patient/caregiver healing process and management measures to promote healing and avoid complications Problem:SN Integumentary/Wounds Goal:Patient/Caregive r will verbalize/demonstrate integumentary condition management and achieve improved healing Completed patient instructed on the following: healing process, signs and symptoms of infection, importance of good nutrition and when to report symptoms. Instruct on diabetes disease process and management of chronic condition Description: Patient has needs for education of diabetes. Problem:SN Diabetes Goal:Improved management of diabetes Completed patient assessed and instructed on diabetes disease process and diet education as found in the diabetes self-care booklets. Instruct and educate on knowledge deficits Problem:SN Learning Assessment Goal:Demonstrate understanding of education Completed patient verbalize and/or demonstrate understanding of nursing education completed today. Education methods include: verbal cues. Further education required to improve knowledge and compliance with diabetic care management. SN to obtain blood specimen (1) Description: T81.30XA Physician: Amairani Quintero MD Blood Work: cbc/d,creat,LFT's qmonday (Fax lab results to pharmacy: [phone]) If unable to draw blood through IV access device, may draw blood peripherally. Problem:SN Labwork Goal:SN to obtain ordered lab specimen without difficulty [facility] Visit Details Visit Type -SN ROUTINE IV Discipline -Residential Problems Problem Description Start Date Status Goals Interve ntions Medication Education Disciplines: Skilled Services 05/18/2021 Active 1 goal linked to scheduled/document ed intervention 1 goal intervention scheduled/document ed in this visit Physician Specific Parameters Disciplines: Skilled Services 05/18/2021 Active 1 goal linked to scheduled/document ed intervention 1 goal intervention scheduled/document ed in this visit Risk for Falls Disciplines: Skilled Services 05/18/2021 Active 1 goal linked to scheduled/document ed intervention 1 goal intervention scheduled/document ed in this visit Pain Disciplines: Skilled Services 05/18/2021 Active 1 goal linked to scheduled/document ed intervention 1 goal intervention scheduled/document ed in this visit Diabetic Foot Care Disciplines: Skilled Services 05/18/2021 Active 1 goal linked to scheduled/document ed intervention 1 goal intervention scheduled/document ed in this visit High Risk Medications Disciplines: Skilled Services 05/18/2021 Active 1 goal linked to scheduled/document ed intervention 1 goal intervention scheduled/document ed in this visit SN IV THERAPY Disciplines: SN 05/18/2021 Active 1 goal linked to scheduled/document ed intervention 2 goal interventions scheduled/document ed in this visit SN Diabetes Disciplines: SN 05/18/2021 Active 1 goal linked to scheduled/document ed intervention 1 goal intervention scheduled/document ed in this visit SN Learning Assessment Disciplines: SN 05/18/2021 Resolved on 06/14/2021 1 goal linked to scheduled/document ed intervention 1 goal intervention scheduled/document ed in this visit SN Labwork Disciplines: SN 05/18/2021 Active 1 goal linked to scheduled/document ed intervention 1 goal intervention scheduled/document ed in this visit Goals Goal Associated Problem Outcome Goal Met? Visit Notes Patient/caregiver will demonstrate ability to obtain, store, identify and administer ordered medications, keep accurate medication list in home, and adhere to medication schedule Medication Education No Patient to maintain parameters within physician-specified ranges Physician Specific Parameters No Manage Risk for falls Description: Patient/caregiver will verbalize knowledge of individualized fall prevention strategies by wear nonslip footwear, watch out for IV tubing, use a nightlight. Risk for Falls No Manage Pain Description: Patient/caregiver will verbalize knowledge and understanding of appropriate techniques to control pain, including pain medication. Patient will verbalize or demonstrate an acceptable level of pain as evidenced by a pain score of 0/10 and improvement in ability to perform activities of daily living to be achieved by discharge. Pain No Manage diabetic foot care Description: Patient/caregiver will demonstrate basic understanding of and compliance with diabetic self-care management as evidenced by verbalizing purpose of daily foot care and assessment by discharge. Diabetic Foot Care No Patient/caregiver will teach back high risk medication side effect and precaution education High Risk Medications No Patient/Caregiver will demonstrate independence with all aspects of Infusion and access device management SN IV THERAPY No Improved management of diabetes Description: Improve diabetic management as evidenced by patient/caregiver able to teach back 4 diabetic management strategies by discharge. SN Diabetes No Demonstrate understanding of education Description: Patient and/or caregiver will verbalize understanding of educational instruction provided. SN Learning Assessment Completed Yes SN to obtain ordered lab specimen without difficulty SN Labwork No Interventions Intervention Associated Problem/Goal Status Variance Visit Notes Medication Education Description: Evaluate/instruct patient/caregiver on obtaining, storing, identifying and administering ordered medications as well as keeping accurate medication list in the home and adhereing to medication schedule Problem:Medication Education Goal:Patient/caregive r will demonstrate ability to obtain, store, identify and administer ordered medications, keep accurate medication list in home, and adhere to medication schedule Completed Patient instructed on importance of keeping accurate medication list in home, adhering to medication schedule, proper storage of medications, Medication, route, dose, frequency, purpose, and side effects of Current med list medications and disposing of old and out of date medications. SPO2 Description: Notify Dr. Yessenia Rodriguez MD if pulse ox is <92% at rest. Problem:Physician Specific Parameters Goal:Patient to maintain parameters within physician-specified ranges Completed Instruct on individual fall risk factors and strategies to prevent falls and injuries caused by falls. Problem:Risk for Falls Goal:Manage Risk for falls Completed SN: Patient instructed on Reducing Medication Risks: Recommended medication schedule and instructed on management of side effects to minimize fall risk and injuries caused by falls Instruct on pain and instruct on strategies to control pain Problem:Pain Goal:Manage Pain Completed patient instructed on techniques to control pain including Pharmacological measures and Non-Pharmacological measures; rest, positioning/elevation, mobility/therapeutic exercise and distraction. Monitor lower extremities for skin lesions and educate on proper foot care Problem:Diabetic Foot Care Goal:Manage diabetic foot care Completed patient instructed on diabetic foot care including daily skin inspection, wearing proper footwear/avoiding going barefoot, wash/dry feet thoroughly, applying moisturizer, avoiding between toes and toenail care. Opioids- Instruct on high risk medication Problem:High Risk Medications Goal:Patient/caregive r will teach back high risk medication side effect and precaution education Completed patient instructed on the following: Possible side effects of opioid medication including sedation, decreased rate of breathing, and constipation. Instructed on reporting over sedation to prescribing physician, practice deep breathing techniques every hour while awake, and prevention of constipation by increasing water and fiber intake, increase activity as tolerated, and use stool softener as prescribed. Only take opioids as prescribed, do not share your medications, and take proper precautions in storing and properly disposing of opioids once no longer needed. Follow providers guidelines for driving and weaning from prescribed opioid. Complete PICC catheter care per order Description: Measure external catheter length with every dressing change. Measure upper arm circumference 10 cm above the anticubital fossa at initial assessment and when clinically indicated. Change needleless connector and extension tubing weekly and PRN. Change dressing weekly and PRN for lifting edges of dressing, visible soiling, presence of moisture, drainage or blood, compromised skin integrity. Cleanse site with 2% chlorhexidine gluconate for 30 seconds. Allow to air dry completely. Apply skin barrier solution and allow to air dry completely. Cover/secure with StatLock , BIOPATCH and transparent semi-permeable dressing. Problem:SN IV THERAPY Goal:Patient/Caregive r will demonstrate independence with all aspects of Infusion and access device management Completed SL PICC RUE with no redness/edema/drainage /tenderness. Applied PPE, With aseptic technique cleansed NC with alcohol x 15 seconds, hub with alcohol x 30 seconds and allowed to air dry prior to each access. flushed with 10ml sterile saline, wasted 10ml blood, obtained CBC W/DIFF, CREAT, LFTs Attached new NC/Extension tubing after priming with NS. Post flushed with 20ml NS. Removed old dressing. With sterile technique cleansed with chlorhexadine x 30 seconds, air dried, applied skin prep, air dried. Secured with Statlock. Biopatch to insertion site. Covered with tegaderm. Tolerated well. Patient indep. with administration of oxacillin 2g with no SE reported. Labs delivered to [facility] results to Dr. QUINTERO [facility] Instruct patient/cargiver on management of infusion and access device Problem:SN IV THERAPY Goal:Patient/Caregive r will demonstrate independence with all aspects of Infusion and access device management Completed patient instructed on the following: name, purpose and goal of infusion therapy, how to contact [facility], how and when to contact the pharmacy, aseptic handling and maintaining a clean area for infusion therapy supplies, preparation and administration of infusion, safe handling, storage and disposal of infusion therapy supplies, medications, flushes and hazardous waste and flushing the venous access device Instruct on diabetes disease process and management of chronic condition Description: Patient has needs for education of diabetes. Problem:SN Diabetes Goal:Improved management of diabetes Completed patient assessed and reinforced on diabetes disease process, diet education, how to carb count, recogonizing s/s of hypoglycemia and hyperglycemia and managing sick days as found in the diabetes self-care booklets. Instruct and educate on knowledge deficits Problem:SN Learning Assessment Goal:Demonstrate understanding of education Completed patient verbalize and/or demonstrate understanding of nursing education completed today. Education methods include: verbal cues and written instructions. Further education required to improve knowledge and compliance with fall prevention/home safety strategies and incision/wound care management. SN to obtain blood specimen (1) Description: T81.30XA Physician: Amairani Quintero MD Blood Work: cbc/d,creat,LFT's qmonday (Fax lab results to pharmacy: [phone]) If unable to draw blood through IV access device, may draw blood peripherally. Problem:SN Labwork Goal:SN to obtain ordered lab specimen without difficulty Completed documented in this encounter [facility] Plan of care note* Visit Details Visit Type -SN ROUTINE IV Discipline -Residential Problems Problem Description Start Date Status Goals Interve ntions Medication Education Disciplines: Skilled Services 05/18/2021 Active 1 goal linked to scheduled/documente d intervention 1 goal intervention scheduled/documente d in this visit Physician Specific Parameters Disciplines: Skilled Services 05/18/2021 Active 1 goal linked to scheduled/documente d intervention 1 goal intervention scheduled/documente d in this visit Risk for Falls Disciplines: Skilled Services 05/18/2021 Active 1 goal linked to scheduled/documente d intervention 1 goal intervention scheduled/documente d in this visit Pain Disciplines: Skilled Services 05/18/2021 Active 1 goal linked to scheduled/documente d intervention 1 goal intervention scheduled/documente d in this visit SN IV THERAPY Disciplines: SN 05/18/2021 Active 1 goal linked to scheduled/documente d intervention 1 goal intervention scheduled/documente d in this visit SN Labwork Disciplines: SN 05/18/2021 Active 1 goal linked to scheduled/documente d intervention 1 goal intervention scheduled/documente d in this visit Goals Goal Associated Problem Outcome Goal Met? Visit Notes Patient/caregiver will demonstrate ability to obtain, store, identify and administer ordered medications, keep accurate medication list in home, and adhere to medication schedule Medication Education No Patient to maintain parameters within physician-specified ranges Physician Specific Parameters No Manage Risk for falls Description: Patient/caregiver will verbalize knowledge of individualized fall prevention strategies by wear nonslip footwear, watch out for IV tubing, use a nightlight. Risk for Falls No Manage Pain Description: Patient/caregiver will verbalize knowledge and understanding of appropriate techniques to control pain, including pain medication. Patient will verbalize or demonstrate an acceptable level of pain as evidenced by a pain score of 0/10 and improvement in ability to perform activities of daily living to be achieved by discharge. Pain No Patient/Caregiver will demonstrate independence with all aspects of Infusion and access device management SN IV THERAPY No SN to obtain ordered lab specimen without difficulty SN Labwork No Interventions Intervention Associated Problem/Goal Status Variance Visit Notes Medication Education Description: Evaluate/instruct patient/caregiver on obtaining, storing, identifying and administering ordered medications as well as keeping accurate medication list in the home and adhereing to medication schedule Problem:Medication Education Goal:Patient/caregiv er will demonstrate ability to obtain, store, identify and administer ordered medications, keep accurate medication list in home, and adhere to medication schedule Completed Patient instructed on importance of keeping accurate medication list in home, adhering to medication schedule, proper storage of medications, Medication, route, dose, frequency, purpose, and side effects of medications, disposing of old and out of date medications, how to order refills, med production planner set up and med diary and reminders. SPO2 Description: Notify Dr. Yessenia Rodriguez MD if pulse ox is <92% at rest. Problem:Physician Specific Parameters Goal:Patient to maintain parameters within physician-specified ranges Completed Instruct on individual fall risk factors and strategies to prevent falls and injuries caused by falls. Problem:Risk for Falls Goal:Manage Risk for falls Completed SN: Patient instructed on Managing Impaired Functional Mobility: Caregiver to provide assist with: ADL/IADLs Instruct on pain and instruct on strategies to control pain Problem:Pain Goal:Manage Pain Completed patient instructed on techniques to control pain including Pharmacological measures and Non-Pharmacological measures; rest, positioning/elevation, mobility/therapeutic exercise, distraction, breathing/relaxation and use of DME/assistive devices. Complete PICC catheter care per order Description: Measure external catheter length with every dressing change. Measure upper arm circumference 10 cm above the anticubital fossa at initial assessment and when clinically indicated. Change needleless connector and extension tubing weekly and PRN. Change dressing weekly and PRN for lifting edges of dressing, visible soiling, presence of moisture, drainage or blood, compromised skin integrity. Cleanse site with 2% chlorhexidine gluconate for 30 seconds. Allow to air dry completely. Apply skin barrier solution and allow to air dry completely. Cover/secure with StatLock , BIOPATCH and transparent semi-permeable dressing. Problem:SN IV THERAPY Goal:Patient/Caregiv er will demonstrate independence with all aspects of Infusion and access device management Completed SN to obtain blood specimen (1) Description: T81.30XA Physician: Amairani Quintero MD Blood Work: cbc/d,creat,LFT's qmonday (Fax lab results to pharmacy: [phone]) If unable to draw blood through IV access device, may draw blood peripherally. Problem:SN Labwork Goal:SN to obtain ordered lab specimen without difficulty Completed documented in this encounter [facility] Plan of care note* Visit Details Visit Type -SN AGENCY DC W V ISIT IV Discipline -Residential Problems Problem Description Start Date Status Goals Interve ntions Medication Education Disciplines: Skilled Services 05/18/2021 Resolved on 06/25/2021 1 goal linked to scheduled/document ed intervention 1 goal intervention scheduled/document ed in this visit Physician Specific Parameters Disciplines: Skilled Services 05/18/2021 Resolved on 06/25/2021 1 goal linked to scheduled/document ed intervention 1 goal intervention scheduled/document ed in this visit Risk for Falls Disciplines: Skilled Services 05/18/2021 Resolved on 06/25/2021 1 goal linked to scheduled/document ed intervention 1 goal intervention scheduled/document ed in this visit Pain Disciplines: Skilled Services 05/18/2021 Resolved on 06/25/2021 1 goal linked to scheduled/document ed intervention 1 goal intervention scheduled/document ed in this visit Diabetic Foot Care Disciplines: Skilled Services 05/18/2021 Resolved on 06/25/2021 1 goal linked to scheduled/document ed intervention 1 goal intervention scheduled/document ed in this visit High Risk Medications Disciplines: Skilled Services 05/18/2021 Resolved on 06/25/2021 1 goal linked to scheduled/document ed intervention 1 goal intervention scheduled/document ed in this visit Discharge Disciplines: Skilled Services 05/18/2021 Resolved on 06/25/2021 1 goal linked to scheduled/document ed intervention 2 goal interventions scheduled/document ed in this visit SN IV THERAPY Disciplines: SN 05/18/2021 Resolved on 06/25/2021 1 goal linked to scheduled/document ed intervention 2 goal interventions scheduled/document ed in this visit SN Integumentary/ Wounds Disciplines: SN 05/18/2021 Resolved on 06/25/2021 1 goal linked to scheduled/document ed intervention 2 goal interventions scheduled/document ed in this visit SN Diabetes Disciplines: SN 05/18/2021 Resolved on 06/25/2021 1 goal linked to scheduled/document ed intervention 1 goal intervention scheduled/document ed in this visit SN Labwork Disciplines: SN 05/18/2021 Resolved on 06/25/2021 1 goal linked to scheduled/document ed intervention Goals Goal Associated Problem Outcome Goal Met? Visit Notes Patient/caregiver will demonstrate ability to obtain, store, identify and administer ordered medications, keep accurate medication list in home, and adhere to medication schedule Medication Education Completed Yes Patient to maintain parameters within physician-specified ranges Physician Specific Parameters Completed Yes Manage Risk for falls Description: Patient/caregiver will verbalize knowledge of individualized fall prevention strategies by wear nonslip footwear, watch out for IV tubing, use a nightlight. Risk for Falls Completed Yes Manage Pain Description: Patient/caregiver will verbalize knowledge and understanding of appropriate techniques to control pain, including pain medication. Patient will verbalize or demonstrate an acceptable level of pain as evidenced by a pain score of 0/10 and improvement in ability to perform activities of daily living to be achieved by discharge. Pain Completed Yes Manage diabetic foot care Description: Patient/caregiver will demonstrate basic understanding of and compliance with diabetic self-care management as evidenced by verbalizing purpose of daily foot care and assessment by discharge. Diabetic Foot Care Completed Yes Patient/caregiver will teach back high risk medication side effect and precaution education High Risk Medications Completed Yes Manage discharge planning Description: Patient/caregiver will verbalize understanding of ongoing discharge plan provided related to disease management, arrangements for outpatient and/or community services, obtaining medications, supplies, and DME, as needed. Discharge Completed Yes Patient/Caregiver will demonstrate independence with all aspects of Infusion and access device management SN IV THERAPY Completed Yes Patient/Caregiver will verbalize/demonstrate integumentary condition management and achieve improved healing SN Integumentary/Wounds Completed Yes Improved management of diabetes Description: Improve diabetic management as evidenced by patient/caregiver able to teach back 4 diabetic management strategies by discharge. SN Diabetes Completed Yes SN to obtain ordered lab specimen without difficulty SN Labwork Completed Yes Interventions Intervention Associated Problem/Goal Status Variance Visit Notes Medication Education Description: Evaluate/instruct patient/caregiver on obtaining, storing, identifying and administering ordered medications as well as keeping accurate medication list in the home and adhereing to medication schedule Problem:Medication Education Goal:Patient/caregiv er will demonstrate ability to obtain, store, identify and administer ordered medications, keep accurate medication list in home, and adhere to medication schedule Completed Patient instructed on importance of keeping accurate medication list in home, adhering to medication schedule, proper storage of medications and Medication, route, dose, frequency, purpose, and side effects of current med list medications. SPO2 Description: Notify Dr. Yessenia Rodriguez MD if pulse ox is <92% at rest. Problem:Physician Specific Parameters Goal:Patient to maintain parameters within physician-specified ranges Completed Instruct on individual fall risk factors and strategies to prevent falls and injuries caused by falls. Problem:Risk for Falls Goal:Manage Risk for falls Completed SN: Patient instructed on Managing Pain: Recommended pain medication schedule and management of side effects to minimize fall risk Reducing Medication Risks: Recommended medication schedule and instructed on management of side effects to minimize fall risk and injuries caused by falls Instruct on pain and instruct on strategies to control pain Problem:Pain Goal:Manage Pain Completed patient instructed on techniques to control pain including Non-Pharmacological measures; rest, positioning/elevati on, mobility/therapeuti c exercise, distraction and breathing/relaxatio n. Monitor lower extremities for skin lesions and educate on proper foot care Problem:Diabetic Foot Care Goal:Manage diabetic foot care Completed patient instructed on diabetic foot care including daily skin inspection, wearing proper footwear/avoiding going barefoot, wash/dry feet thoroughly, applying moisturizer, avoiding between toes and toenail care. Opioids- Instruct on high risk medication Problem:High Risk Medications Goal:Patient/caregiv er will teach back high risk medication side effect and precaution education Other (specify reason) no longer on opiods Instruct on final discharge plan and deliver discharge instructions Problem:Discharge Goal:Manage discharge planning Completed Delivered Discharge plan: Discharge plan discussed with patient for plan for transition to: caregiver assistance Instruct on ongoing discharge plan Problem:Discharge Goal:Manage discharge planning Completed Ongoing Discharge plan: Discharge plan discussed with patient including , Reviewed safety/fall prevention measures, DM mgmt, s/s infection and when to seek medical attention. Patient verbalized understanding of instructions Instruct patient/cargiver on management of infusion and access device Problem:SN IV THERAPY Goal:Patient/Caregiv er will demonstrate independence with all aspects of Infusion and access device management Other (specify reason) IV Therapy completed Remove PICC line/midline catheter per physician order Description: per orders of Dr Peter Quintero: [place] COPAT stop date 06/24/21 Homecare nurse to remove PICC after last dose Problem:SN IV THERAPY Goal:Patient/Caregiv er will demonstrate independence with all aspects of Infusion and access device management Instructed patient on procedure for Picc removal. Patient in supine position. Applied PPE, With clean technique, removed dressing. With sterile technique, cleansed with chlorhexadine x 30 seconds, allowed to air dry. While patient performed valsalva maneuver Picc was removed with no difficulty. Picc measures 47.0cm, tip appears clean cut/intact. Pressure applied to site x 5minutes, no bleeding, applied occlusive dressing. Patient tolerared procedure well. Instructed patient to apply firm pressure if any bleeding noted and seek ER tx if bleeding not resolved after 10 minutes continuous pressure; Potential complications, blood clot and to report sudden onset of chest pain, SOB, Dyspnea, swelling or pain of hand/arm/shoulder. Instructed to leave dressing on 24-48 hours and keep clean & dry; avoid heavy lifting/pushing/pul ling for next 48 hours. Verbalizes understanding/agree ment Instruct patient/caregiver healing process and management measures to promote healing and avoid complications Problem:SN Integumentary/Wounds Goal:Patient/Caregiv er will verbalize/demonstrat e integumentary condition management and achieve improved healing Other (specify reason) wound healed Instruct Patient/Caregiver on wound/incision care procedure as ordered by physician Description: keep incision open to air, wash hair at least every other day with mild soap. Problem:SN Integumentary/Wounds Goal:Patient/Caregiv er will verbalize/demonstrat e integumentary condition management and achieve improved healing Other (specify reason) wound healed Instruct on diabetes disease process and management of chronic condition Description: Patient has needs for education of diabetes. Problem:SN Diabetes Goal:Improved management of diabetes Completed patient assessed and reinforced on diabetes disease process, diet education, how to carb count, recogonizing s/s of hypoglycemia and hyperglycemia and managing sick days as found in the diabetes self-care booklets. documented in this encounter [facility] for referral (narrative)* Diagnostic Procedure Only (Routine) - Pending Review Specialty Diagnoses / Procedures Referred By Ayala t Referred To Contact [facility] Diagnoses Encounter for screening mammogram for breast cancer Procedures CHARLIE SCREENING SCREENING MAMMOGRAPHY BI 2-VIEW BREAST INC CAD Yessenia Rodriguez MD [address] [place] [address] Br Imaging [address] [place] [address] Referral ID Status Reason Start Date Expiration Date Visits Requested Visits Authorized [id number] Pending Review Auto-Generat ed Referral 09/22/2021 10/22/2022 1 1 [facility] for referral (narrative)* Outpatient Procedure (Routine) - Closed Specialty Diagnoses / Procedures Referred By Ayala cah Referred To Contact [facility] Diagnoses Screening for colon cancer Procedures COLONOSCOPY SCREENING COLONOSCOPY FLX DX W/COLLJ SPEC WHEN PFRMD Yessenia Rodriguez MD [address] [place] [address] [facility] [place] [address] [place] [address] Referral ID Status Reason Start Date Expiration Date V isits Requested Visits Authorized [id number] Closed Auto-Generate d Referral 08/27/2021 08/27/2022 1 1 [facility] for referral (narrative)* Outpatient Procedure (Routine) - Pending Review Specialty Diagnoses / Procedures Referred By Contac t Referred To Contact [facility] Diagnoses GONCALVES (dyspnea on exertion) Procedures LUNG VOLUMES Rose Romero, CERTIFIED ACTIVITIES DIRECTOR.PAINT BOOTH OPERATOR [address] [place] [address] [facility] [place] [address] [place] [address] Referral ID Status Reason Start Date Expiration Date Visits Requested Visits Authorized [id number] Pending Review Auto-Generat ed Referral 08/17/2022 09/16/2023 1 1 Electronically signed by Rose Tyler CERTIFIED ACTIVITIES DIRECTOR.PAINT BOOTH OPERATOR at 08/17/2022 8:30 AM EDT * Outpatient Procedure (Routine) - Authorized Specialty Diagnoses / Procedures Referred By Contac t Referred To Contact [facility] Diagnoses GONCALVES (dyspnea on exertion) Procedures NITRIC OXIDE, EXHALED NITRIC OXIDE GAS DETERMINATION Rose Romero APRN.CNP [address] [place] [id number] [facility] [place] [id number] Referral ID Status Reason Start Date Expiration Date Visits Requested Visits Authorized [id number] Authorized Auto-Generat ed Referral 08/17/2022 09/16/2023 1 1 * Outpatient Procedure (Routine) - Authorized Specialty Diagnoses / Procedures Referred By Contac t Referred To Contact [facility] Diagnoses GONCALVES (dyspnea on exertion) Procedures SPIROMETRY WITH DILATOR IF OBSTRUCTED BRNCDILAT RSPSE SPMTRY PRE&POST-BRNCDILAT ADMN Rose Romero APRN.PAINT BOOTH OPERATOR [address] [place] [phone] [place] [id number] Referral ID Status Reason Start Date Expiration Date Visits Requested Visits Authorized [id number] Authorized Auto-Generat ed Referral 08/17/2022 09/16/2023 1 1 [facility] for referral (narrative)* Diagnostic Procedure Only (Routine) - Additional Clinical Info Needed Specialty Diagnoses / Procedures Referred By Contact Referred To Contact [facility] Diagnoses GONCALVES (dyspnea on exertion) Hypertension, essential Mixed hyperlipidemia Precordial pain FABIOLA (obstructive sleep apnea) Subaortic membrane Procedures NM CARDIAC PERF STRESS/PHARM MYOCARDIAL SPECT MULTIPLE STUDIES Patrica Lennon DO [address] [place] [address] [facility] [address] [place] [address] Referral ID Status Reason Start Date Expiration Date Visits Requested Visits Authorized [id number] Additional Clinical Info Needed Auto-Generat ed Referral 10/19/2022 11/18/2023 1 1 [facility] for referral (narrative)* Diagnostic Procedure Only (Routine) - Closed Specialty Diagnoses / Procedures Referred By Contact Referred To Contact [facility] Diagnoses GONCALVES (dyspnea on exertion) Hypertension, essential Mixed hyperlipidemia Precordial pain FABIOLA (obstructive sleep apnea) Subaortic membrane Procedures NM CARDIAC PERF STRESS/PHARM MYOCARDIAL SPECT MULTIPLE STUDIES Patrica Lennon DO [address] [place] [address] [facility] [address] [place] [address] Referral ID Status Reason Start Date Expiration Date V isits Requested Visits Authorized [id number] Closed Auto-Generate d Referral 10/20/2022 12/19/2022 1 1 T [facility] for referral (narrative)* Diagnostic Procedure Only (Routine) - Pending Review Specialty Diagnoses / Procedures Referred By Ayala cha Referred To Contact [facility] Diagnoses Encounter for screening mammogram for breast cancer Procedures CHARLIE SCREENING SCREENING MAMMOGRAPHY BI 2-VIEW BREAST INC CAD Yessenia Rodriguez MD [address] [place] [address] [facility] [address] [place] [address] Referral ID Status Reason Start Date Expiration Date Visits Requested Visits Authorized [id number] Pending Review Auto-Generat ed Referral 03/29/2023 04/27/2024 1 1 [facility] for visit Narrative* Outpatient Procedure (Routine) - Closed Specialty Diagnoses / Procedures Referred By Ayala cha Referred To Contact [facility] Diagnoses Screening for colon cancer Procedures COLONOSCOPY SCREENING COLONOSCOPY FLX DX W/COLLJ SPEC WHEN PFRMD Yessenia Rodriguez MD [address] [place] [address] [facility] [place] [address] [place] [address] Referral ID Status Reason Start Date Expiration Date V isits Requested Visits Authorized [id number] Closed Auto-Generate d Referral 08/27/2021 08/27/2022 1 1 [facility] for visit Narrative* Diagnostic Procedure Only (Routine) - Closed Specialty Diagnoses / Procedures Referred By Contact Referred To Contact [facility] Diagnoses GONCALVES (dyspnea on exertion) Hypertension, essential Mixed hyperlipidemia Precordial pain FABIOLA (obstructive sleep apnea) Subaortic membrane Procedures NM CARDIAC PERF STRESS/PHARM MYOCARDIAL SPECT MULTIPLE STUDIES Patrica Lennon, DO [address] [place] [address] [facility] [address] [place] [address] Referral ID Status Reason Start Date Expiration Date V isits Requested Visits Authorized [id number] Closed Auto-Generate d Referral 10/20/2022 12/19/2022 1 1 [facility] for visit Narrative* Diagnostic Procedure Only (Routine) - Closed Specialty Diagnoses / Procedures Referred By Contac t Referred To Contact [facility] Diagnoses Encounter for screening mammogram for breast cancer Procedures CHARLIE SCREENING SCREENING MAMMOGRAPHY BI 2-VIEW BREAST INC CAD Yessenia Rodriguez MD [address] [place] [address] [facility] [address] [place] [address] Referral ID Status Reason Start Date Expiration Date V isits Requested Visits Authorized [id number] Closed Auto-Generate d Referral 03/29/2023 04/27/2024 1 1 [facility] Summary Purpose Family History No Family History Records FoundNo Family History Records FoundNo Family History Records FoundNo Family History Records FoundNo Family History Records FoundNo Family History Records FoundNo Family History Records FoundNo Family History Records Found Advance Directives No Advanced Directives Records FoundDocuments on File Type Date Recorded Patient Neurosurgeon Expl anation Advance Directive(s) 11/12/2019 8:32 PM Date Activated Date Inactivated Comments 05/18/2021 10:00 PM Date Activated Date Inactivated Comments 11/12/2019 4:43 AM 11/15/2019 8:09 PM Question Answer Comments Full Code Order Discussed With: Patient Latest Code Status on File Code Status Date Activated Date Inactivated Comments Full Code 05/18/2021 10:00 PM Full Code 11/12/2019 4:43 AM 11/15/2019 8:09 PM Full Code Order Discussed With: Patient Documents on File Type Date Recorded Patient Neurosurgeon Expl anation Advance Directive(s) 05/11/2021 1:45 PM Advance Directive(s) 07/25/2020 5:57 PM Advance Directive(s) 06/26/2020 10:15 AM [facility] Advance Directive(s) 05/24/2020 11:00 AM Advance Directive(s) 01/08/2020 7:07 AM Advance Directive(s) 12/31/2019 10:36 AM Advance Directive(s) 11/24/2019 6:30 PM Advance Directive(s) 11/12/2019 9:14 PM Advance Directive(s) 11/12/2019 8:32 PM Advance Directive(s) 11/11/2019 8:48 PM Latest Code Status on File Code Status Date Activated Date Inactivated Comments Full Code 05/18/2021 10:00 PM Full Code 11/12/2019 4:43 AM 11/15/2019 8:09 PM Documents on File Type Date Recorded Patient Neurosurgeon Expl anation Advance Directive(s) 05/11/2021 1:45 PM Advance Directive(s) 07/25/2020 5:57 PM Advance Directive(s) 06/26/2020 10:15 AM [facility] Advance Directive(s) 05/24/2020 11:00 AM Advance Directive(s) 01/08/2020 7:07 AM Advance Directive(s) 12/31/2019 10:36 AM Advance Directive(s) 11/24/2019 6:30 PM Advance Directive(s) 11/12/2019 9:14 PM Advance Directive(s) 11/12/2019 8:32 PM Advance Directive(s) 11/11/2019 8:48 PM Documents on File Type Date Recorded Patient Neurosurgeon Expl anation Advance Directive(s) 11/12/2019 8:32 PM Latest Code Status on File Code Status Date Activated Date Inactivated Comments Full Code 05/18/2021 10:00 PM Code Status History Code Status Date Activated Date Inactivated Comments Full Code 11/12/2019 4:43 AM 11/15/2019 8:09 PM Question Answer Comments Full Code Order Discussed With: Patient Latest Code Status on File Code Status Date Activated Date Inactivated Comments Full Code 05/18/2021 10:00 PM Code Status History Code Status Date Activated Date Inactivated Comments Full Code 11/12/2019 4:43 AM 11/15/2019 8:09 PM Question Answer Comments Full Code Order Discussed With: Patient Code Status History Code Status Date Activated Date Inactivated Comments Full Code 11/12/2019 4:43 AM 11/15/2019 8:09 PM Question Answer Comments Full Code Order Discussed With: Patient Date Activated Date Inactivated Comments 05/18/2021 10:00 PM Date Activated Date Inactivated Comments 11/12/2019 4:43 AM 11/15/2019 8:09 PM Question Answer Comments Full Code Order Discussed With: Patient Advance Directive Response Recorded Date/ Time Living Will No May 27, 2024 1:01pm Power of Brick Grader No May 27 1:01pm Procedure Findings Note HNO ID: [id number] Author: Gulshan Horne Service: Neurosurgery Author Type: Physician Type: Brief Op Note Filed: 01/08/2020 9:44 AM Note Text: BRIEF OP/PROCEDURE NOTE NEURO INTERVENTIONAL PROCEDURE DATE: January 08, 2020 LOG ID: [id number] Surgery/Procedure Date: 01/08/2020 Incision/Procedure Start Time: 9:01 AM Incision Close/Procedure End Time: 9:36 AM Anesthesia: Procedural Sedation PRIMARY PROCEDURALIST: Tana Horne M.D. HOG TENDER(S): Joceline Tierney MD PROCEDURE: Diagnostic CervicoCerebral Angiography Indications: left LUBA aneurysm Access Site: right radial PRE-PROCEDURE DIAGNOSIS: left LUBA aneurysm POST-PROCEDURE DIAGNOSIS: same FINDINGS: 4.5mm x 2.6mm x 3.9mm left LUBA aneurysm at pericallosal-callosomarginal junction. ESTIMATED BLOOD LOSS: Scant COMPLICATIONS: None SPECIMENS: Not Applicable SIGNATURE: MD LAWANDA CHISHOLM PATIENT NAME: Merle Bradley DATE: January 08, 2020 TIME: 9:42 AM PAGER/CONTACT #: [id number] Medications Administered Section Active Administered Medications - up to 3 most recent administrations Medication Order MAR Action Action Date Dose Rate Site sodium chloride (NaCl) 0.9% injection solution Inject 10 mL intravenously as directed. Flush with 10ml before and after dose. Flush with 10ml before and 20ml after lab draws. flush unused lumen(s) daily with 10ml. Flush all lumens with 10ml before and after TPN infusions., Home Health Historical Meds Given 06/07/2021 2:25 PM EDT 20 mL Active Administered Medications - up to 3 most recent administrations Medication Order MAR Action Action Date Dose Rate Site sodium chloride (NaCl) 0.9% injection solution Inject 10 mL intravenously as directed. Flush with 10ml before and after dose. Flush with 10ml before and 20ml after lab draws. flush unused lumen(s) daily with 10ml. Flush all lumens with 10ml before and after TPN infusions., Home Health Historical Meds Given 06/14/2021 2:20 PM EDT 10 mL IV Active Administered Medications - up to 3 most recent administrations Medication Order MAR Action Action Dose Rate Site sodium chloride (NaCl) 0.9% injection solution Inject 10 mL intravenously as directed. Flush with 10ml before and after dose. Flush with 10ml before and 20ml after lab draws. flush unused lumen(s) daily with 10ml. Flush all lumens with 10ml before and after TPN infusions., Home Health Historical Meds Given 06/21/2021 4:17 PM EDT 20 mL Inactive Administered Medications - up to 3 most recent administrations Medication Order MAR Action Action Dose Rate Site lactated ringers iv infusion 30 mL/hr, INTRAVENOUS, CONTINUOUS, Starting on Mon02/16/22 at 0800, Until Mon02/16/22 at 0907, Preprocedure New Bag/Syringe/Bottle 02/16/2022 8:09 AM EST 30 mL/hr 30 mL/hr Inactive Administered Medications - up to 3 most recent administrations Medication Order MAR Action Action Date Dose Rate Site regadenoson 0.4 mg injection (LEXISCAN) 0.4 mg, INTRAVENOUS, ONCE, 1 dose, On Mon10/25/22 at 1430, Give 0.4 mg (5 mL) over ~10 seconds, followed immediately by a 5 mL saline flush. Wait 10-20 seconds, then administer the radionuclide myocardial perfusion imaging agent. Given 10/25/2022 1:00 PM EDT 0.4 mg Reason for Referral Specialty Diagnoses / Procedures Referred By Contac t Referred To Contact CT IMAGING Diagnoses Nonruptured cerebral aneurysm Procedures CT BRAIN WO IVCON CT HEAD/BRAIN W/O CONTRAST MATERIAL Maryam Salmeron APRN.PAINT BOOTH OPERATOR [address] [place] [address] Ct Imaging Referral ID Status Reason Start Date Expiration Date V isits Requested Visits Authorized [id number] Open Auto-Generate d Referral 12/08/2021 01/07/2023 1 1 Referral ID Status Reason Start Date Expiration Date V isits Requested Visits Authorized [id number] Closed Auto-Generate d Referral 12/10/2021 02/08/2022 1 1 Specialty Diagnoses / Procedures Referred By Homeac t Referred To Contact MR IMAGING Diagnoses Intracranial aneurysm Postoperative infection, unspecified type, subsequent encounter Acquired skull defect Postoperative wound dehiscence, initial encounter Nonruptured cerebral aneurysm Procedures MRI BRAIN WO/W IVCON MRI BRAIN BRAIN STEM W/O W/CONTRAST MATERIAL Nerissa Roy PA-C [address] [place] [address] Mr Imaging Referral ID Status Reason Start Date Expiration Date Visits Requested Visits Authorized [id number] Pending Review Auto-Generat ed Referral 04/04/2022 05/02/2023 1 1 Referral ID Status Reason Start Date Expiration Date V isits Requested Visits Authorized [id number] Closed Auto-Generate d Referral 04/18/2022 06/17/2022 1 1 Specialty Diagnoses / Procedures Referred By Contac t Referred To Contact Plastic Surgery Diagnoses Hx of craniotomy Postoperative wound dehiscence, subsequent encounter Drainage from wound Procedures CONSULT TO PLASTIC SURGERY OFFICE/OUTPATIENT NEW HIGH MDM 60-74 MINUTES Maryam Salmeron APRN.PAINT BOOTH OPERATOR [address] [place] [address] Referral ID Status Reason Start Date Expiration Date Visits Requested Visits Authorized [id number] Authorized PCP Requested Referral 05/16/2022 05/16/2023 1 1 Specialty Diagnoses / Procedures Referred By Contac t Referred To Contact [facility] Diagnoses Spinal stenosis of lumbar region with neurogenic claudication Procedures CONSULT TO PHYSICAL THERAPY PHYSICAL THERAPY EVALUATION HIGH COMPLEX 45 MINS Yessenia Rodriguez MD [address] [place] [address] [facility] [place] [address] [place] [address] Referral ID Status Reason Start Date Expiration Date Visits Requested Visits Authorized [id number] Pending Review Auto-Generat ed Referral 07/11/2023 07/10/2024 1 1 Specialty Diagnoses / Procedures Referred By Contac t Referred To Contact Dermatology Diagnoses Rash Procedures CONSULT TO DERMATOLOGY OFFICE/OUTPATIENT [facility] MDM 60 MINUTES Yessenia Rodriguez MD [address] [place] [address] Referral ID Status Reason Start Date Expiration Date Visits Requested Visits Authorized [id number] Authorized PCP Requested Referral 01/04/2025 1 1 Specialty Diagnoses / Procedures Referred By Contac t Referred To Contact Plastic Surgery Diagnoses Hx of craniotomy Skin ulcer of scalp, limited to breakdown of skin (HCC) Wound dehiscence Procedures CONSULT TO PLASTIC SURGERY OFFICE/OUTPATIENT [facility] 60 MINUTES Yessenia Rodriguez MD [address] [place] [address] Referral ID Status Reason Start Date Expiration Date Visits Requested Visits Authorized [id number] Authorized PCP Requested Referral 01/04/2025 1 1 Chief Complaint and Reason for Visit Chief Complaint Admit Date WOUND FROM CRAINIOTOMY May 03 1:39pm N/V May 27, 2024 11: 48am Reason for Visit Admit Date Open scalp wound May 03, 2024 1:39pm Additional Source Comments INFORMATION SOURCE (unrecogn ized section and content) DATE CREATED AUTHOR 10/16/2019 [facility] DATE CREATED AUTHOR AUTHOR'S ORGANIZ ATION 01/09/2020 [facility] DATE CREATED AUTHOR AUTHOR'S ORGANIZ ATION 10/28/2022 [facility] DATE CREATED AUTHOR AUTHOR'S ORGANIZ ATION 06/04/2024 [facility] DATE CREATED AUTHOR AUTHOR'S ORGANIZ ATION 06/07/2024 [facility] DATE CREATED AUTHOR AUTHOR'S ORGANIZ ATION 12/16/2024 [facility] DATE CREATED AUTHOR AUTHOR'S ORGANIZ ATION 01/20/2025 [facility] DATE CREATED AUTHOR AUTHOR'S ORGANIZ ATION 01/20/2025 [facility] Source Comments (unrecognize d section and content) In the event this informatio n is protected by the Federal Confidentiality of Alcohol and Drug Abuse Patient Records regulations: The Federal rules restrict any use of the information to criminally investigate or prosecute any alcohol or drug abuse patient.[facility] the event this information is protected by the Federal Confidentiality of Alcohol and Drug Abuse Patient Records regulations: The Federal rules restrict any use of the information to criminally investigate or prosecute any alcohol or drug abuse patient.[facility] Hospital[facility] the event this information is protected by the Federal Confidentiality of Alcohol and Drug Abuse Patient Records regulations: The Federal rules restrict any use of the information to criminally investigate or prosecute any alcohol or drug abuse patient.[facility] Hospital[facility] the event this information is protected by the Federal Confidentiality of Alcohol and Drug Abuse Patient Records regulations: The Federal rules restrict any use of the information to criminally investigate or prosecute any alcohol or drug abuse patient.[facility] Hospital[facility] the event this information is protected by the Federal Confidentiality of Alcohol and Drug Abuse Patient Records regulations: The Federal rules restrict any use of the information to criminally investigate or prosecute any alcohol or drug abuse patient.[facility] the event this information is protected by the Federal Confidentiality of Alcohol and Drug Abuse Patient Records regulations: The Federal rules restrict any use of the information to criminally investigate or prosecute any alcohol or drug abuse patient.[facility] Hospital[facility] the event this information is protected by the Federal Confidentiality of Alcohol and Drug Abuse Patient Records regulations: The Federal rules restrict any use of the information to criminally investigate or prosecute any alcohol or drug abuse patient.[facility] Hospital[facility] the event this information is protected by the Federal Confidentiality of Alcohol and Drug Abuse Patient Records regulations: The Federal rules restrict any use of the information to criminally investigate or prosecute any alcohol or drug abuse patient.[facility] Hospital[facility] the event this information is protected by the Federal Confidentiality of Alcohol and Drug Abuse Patient Records regulations: The Federal rules restrict any use of the information to criminally investigate or prosecute any alcohol or drug abuse patient.[facility] Hospital[facility] the event this information is protected by the Federal Confidentiality of Alcohol and Drug Abuse Patient Records regulations: The Federal rules restrict any use of the information to criminally investigate or prosecute any alcohol or drug abuse patient.[facility] Hospital[facility] the event this information is protected by the Federal Confidentiality of Alcohol and Drug Abuse Patient Records regulations: The Federal rules restrict any use of the information to criminally investigate or prosecute any alcohol or drug abuse patient.[facility] Hospital[facility] the event this information is protected by the Federal Confidentiality of Alcohol and Drug Abuse Patient Records regulations: The Federal rules restrict any use of the information to criminally investigate or prosecute any alcohol or drug abuse patient.[facility] Hospital[facility] the event this information is protected by the Federal Confidentiality of Alcohol and Drug Abuse Patient Records regulations: The Federal rules restrict any use of the information to criminally investigate or prosecute any alcohol or drug abuse patient.[facility] Hospital[facility] the event this information is protected by the Federal Confidentiality of Alcohol and Drug Abuse Patient Records regulations: The Federal rules restrict any use of the information to criminally investigate or prosecute any alcohol or drug abuse patient.[facility] Hospital[facility] the event this information is protected by the Federal Confidentiality of Alcohol and Drug Abuse Patient Records regulations: The Federal rules restrict any use of the information to criminally investigate or prosecute any alcohol or drug abuse patient.[facility] Hospital[facility] the event this information is protected by the Federal Confidentiality of Alcohol and Drug Abuse Patient Records regulations: The Federal rules restrict any use of the information to criminally investigate or prosecute any alcohol or drug abuse patient.[facility] Hospital[facility] the event this information is protected by the Federal Confidentiality of Alcohol and Drug Abuse Patient Records regulations: The Federal rules restrict any use of the information to criminally investigate or prosecute any alcohol or drug abuse patient.[facility] HospitalIn the event this information is protected by the Federal Confidentiality of Alcohol and Drug Abuse Patient Records regulations: The Federal rules restrict any use of the information to criminally investigate or prosecute any alcohol or drug abuse patient.[facility] HospitalIn the event this information is protected by the Federal Confidentiality of Alcohol and Drug Abuse Patient Records regulations: The Federal rules restrict any use of the information to criminally investigate or prosecute any alcohol or drug abuse patient.[facility] HospitalIn the event this information is protected by the Federal Confidentiality of Alcohol and Drug Abuse Patient Records regulations: The Federal rules restrict any use of the information to criminally investigate or prosecute any alcohol or drug abuse patient.[facility] HospitalIn the event this information is protected by the Federal Confidentiality of Alcohol and Drug Abuse Patient Records regulations: The Federal rules restrict any use of the information to criminally investigate or prosecute any alcohol or drug abuse patient.[facility] HospitalIn the event this information is protected by the Federal Confidentiality of Alcohol and Drug Abuse Patient Records regulations: The Federal rules restrict any use of the information to criminally investigate or prosecute any alcohol or drug abuse patient.[facility] HospitalIn the event this information is protected by the Federal Confidentiality of Alcohol and Drug Abuse Patient Records regulations: The Federal rules restrict any use of the information to criminally investigate or prosecute any alcohol or drug abuse patient.[facility] HospitalIn the event this information is protected by the Federal Confidentiality of Alcohol and Drug Abuse Patient Records regulations: The Federal rules restrict any use of the information to criminally investigate or prosecute any alcohol or drug abuse patient.[facility] HospitalIn the event this information is protected by the Federal Confidentiality of Alcohol and Drug Abuse Patient Records regulations: The Federal rules restrict any use of the information to criminally investigate or prosecute any alcohol or drug abuse patient.[facility] HospitalIn the event this information is protected by the Federal Confidentiality of Alcohol and Drug Abuse Patient Records regulations: The Federal rules restrict any use of the information to criminally investigate or prosecute any alcohol or drug abuse patient.[facility] HospitalIn the event this information is protected by the Federal Confidentiality of Alcohol and Drug Abuse Patient Records regulations: The Federal rules restrict any use of the information to criminally investigate or prosecute any alcohol or drug abuse patient.[facility] HospitalIn the event this information is protected by the Federal Confidentiality of Alcohol and Drug Abuse Patient Records regulations: The Federal rules restrict any use of the information to criminally investigate or prosecute any alcohol or drug abuse patient.[facility] HospitalIn the event this information is protected by the Federal Confidentiality of Alcohol and Drug Abuse Patient Records regulations: The Federal rules restrict any use of the information to criminally investigate or prosecute any alcohol or drug abuse patient.[facility] HospitalIn the event this information is protected by the Federal Confidentiality of Alcohol and Drug Abuse Patient Records regulations: The Federal rules restrict any use of the information to criminally investigate or prosecute any alcohol or drug abuse patient.[facility] HospitalIn the event this information is protected by the Federal Confidentiality of Alcohol and Drug Abuse Patient Records regulations: The Federal rules restrict any use of the information to criminally investigate or prosecute any alcohol or drug abuse patient.[facility] the event this information is protected by the Federal Confidentiality of Alcohol and Drug Abuse Patient Records regulations: The Federal rules restrict any use of the information to criminally investigate or prosecute any alcohol or drug abuse patient.[facility] HospitalIn the event this information is protected by the Federal Confidentiality of Alcohol and Drug Abuse Patient Records regulations: The Federal rules restrict any use of the information to criminally investigate or prosecute any alcohol or drug abuse patient.[facility] HospitalIn the event this information is protected by the Federal Confidentiality of Alcohol and Drug Abuse Patient Records regulations: The Federal rules restrict any use of the information to criminally investigate or prosecute any alcohol or drug abuse patient.[facility]In the event this information is protected by the Federal Confidentiality of Alcohol and Drug Abuse Patient Records regulations: The Federal rules restrict any use of the information to criminally investigate or prosecute any alcohol or drug abuse patient.[facility] HospitalIn the event this information is protected by the Federal Confidentiality of Alcohol and Drug Abuse Patient Records regulations: The Federal rules restrict any use of the information to criminally investigate or prosecute any alcohol or drug abuse patient.[facility] HospitalIn the event this information is protected by the Federal Confidentiality of Alcohol and Drug Abuse Patient Records regulations: The Federal rules restrict any use of the information to criminally investigate or prosecute any alcohol or drug abuse patient.[facility] HospitalIn the event this information is protected by the Federal Confidentiality of Alcohol and Drug Abuse Patient Records regulations: The Federal rules restrict any use of the information to criminally investigate or prosecute any alcohol or drug abuse patient.[facility] HospitalIn the event this information is protected by the Federal Confidentiality of Alcohol and Drug Abuse Patient Records regulations: The Federal rules restrict any use of the information to criminally investigate or prosecute any alcohol or drug abuse patient.[facility] HospitalIn the event this information is protected by the Federal Confidentiality of Alcohol and Drug Abuse Patient Records regulations: The Federal rules restrict any use of the information to criminally investigate or prosecute any alcohol or drug abuse patient.[facility] HospitalIn the event this information is protected by the Federal Confidentiality of Alcohol and Drug Abuse Patient Records regulations: The Federal rules restrict any use of the information to criminally investigate or prosecute any alcohol or drug abuse patient.[facility] HospitalIn the event this information is protected by the Federal Confidentiality of Alcohol and Drug Abuse Patient Records regulations: The Federal rules restrict any use of the information to criminally investigate or prosecute any alcohol or drug abuse patient.[facility] HospitalIn the event this information is protected by the Federal Confidentiality of Alcohol and Drug Abuse Patient Records regulations: The Federal rules restrict any use of the information to criminally investigate or prosecute any alcohol or drug abuse patient.[facility] HospitalIn the event this information is protected by the Federal Confidentiality of Alcohol and Drug Abuse Patient Records regulations: The Federal rules restrict any use of the information to criminally investigate or prosecute any alcohol or drug abuse patient.[facility] HospitalIn the event this information is protected by the Federal Confidentiality of Alcohol and Drug Abuse Patient Records regulations: The Federal rules restrict any use of the information to criminally investigate or prosecute any alcohol or drug abuse patient.[facility] HospitalIn the event this information is protected by the Federal Confidentiality of Alcohol and Drug Abuse Patient Records regulations: The Federal rules restrict any use of the information to criminally investigate or prosecute any alcohol or drug abuse patient.[facility] HospitalIn the event this information is protected by the Federal Confidentiality of Alcohol and Drug Abuse Patient Records regulations: The Federal rules restrict any use of the information to criminally investigate or prosecute any alcohol or drug abuse patient.[facility] HospitalIn the event this information is protected by the Federal Confidentiality of Alcohol and Drug Abuse Patient Records regulations: The Federal rules restrict any use of the information to criminally investigate or prosecute any alcohol or drug abuse patient.[facility] HospitalIn the event this information is protected by the Federal Confidentiality of Alcohol and Drug Abuse Patient Records regulations: The Federal rules restrict any use of the information to criminally investigate or prosecute any alcohol or drug abuse patient.[facility] HospitalIn the event this information is protected by the Federal Confidentiality of Alcohol and Drug Abuse Patient Records regulations: The Federal rules restrict any use of the information to criminally investigate or prosecute any alcohol or drug abuse patient.[facility] HospitalIn the event this information is protected by the Federal Confidentiality of Alcohol and Drug Abuse Patient Records regulations: The Federal rules restrict any use of the information to criminally investigate or prosecute any alcohol or drug abuse patient.[facility] HospitalIn the event this information is protected by the Federal Confidentiality of Alcohol and Drug Abuse Patient Records regulations: The Federal rules restrict any use of the information to criminally investigate or prosecute any alcohol or drug abuse patient.[facility] HospitalIn the event this information is protected by the Federal Confidentiality of Alcohol and Drug Abuse Patient Records regulations: The Federal rules restrict any use of the information to criminally investigate or prosecute any alcohol or drug abuse patient.[facility] HospitalIn the event this information is protected by the Federal Confidentiality of Alcohol and Drug Abuse Patient Records regulations: The Federal rules restrict any use of the information to criminally investigate or prosecute any alcohol or drug abuse patient.[facility] HospitalIn the event this information is protected by the Federal Confidentiality of Alcohol and Drug Abuse Patient Records regulations: The Federal rules restrict any use of the information to criminally investigate or prosecute any alcohol or drug abuse patient.[facility] HospitalIn the event this information is protected by the Federal Confidentiality of Alcohol and Drug Abuse Patient Records regulations: The Federal rules restrict any use of the information to criminally investigate or prosecute any alcohol or drug abuse patient.[facility] HospitalIn the event this information is protected by the Federal Confidentiality of Alcohol and Drug Abuse Patient Records regulations: The Federal rules restrict any use of the information to criminally investigate or prosecute any alcohol or drug abuse patient.[facility] HospitalIn the event this information is protected by the Federal Confidentiality of Alcohol and Drug Abuse Patient Records regulations: The Federal rules restrict any use of the information to criminally investigate or prosecute any alcohol or drug abuse patient.[facility] HospitalIn the event this information is protected by the Federal Confidentiality of Alcohol and Drug Abuse Patient Records regulations: The Federal rules restrict any use of the information to criminally investigate or prosecute any alcohol or drug abuse patient.[facility] HospitalIn the event this information is protected by the Federal Confidentiality of Alcohol and Drug Abuse Patient Records regulations: The Federal rules restrict any use of the information to criminally investigate or prosecute any alcohol or drug abuse patient.[facility] HospitalIn the event this information is protected by the Federal Confidentiality of Alcohol and Drug Abuse Patient Records regulations: The Federal rules restrict any use of the information to criminally investigate or prosecute any alcohol or drug abuse patient.[facility] HospitalIn the event this information is protected by the Federal Confidentiality of Alcohol and Drug Abuse Patient Records regulations: The Federal rules restrict any use of the information to criminally investigate or prosecute any alcohol or drug abuse patient.[facility] HospitalIn the event this information is protected by the Federal Confidentiality of Alcohol and Drug Abuse Patient Records regulations: The Federal rules restrict any use of the information to criminally investigate or prosecute any alcohol or drug abuse patient.[facility] HospitalIn the event this information is protected by the Federal Confidentiality of Alcohol and Drug Abuse Patient Records regulations: The Federal rules restrict any use of the information to criminally investigate or prosecute any alcohol or drug abuse patient.[facility] HospitalIn the event this information is protected by the Federal Confidentiality of Alcohol and Drug Abuse Patient Records regulations: The Federal rules restrict any use of the information to criminally investigate or prosecute any alcohol or drug abuse patient.[facility] HospitalIn the event this information is protected by the Federal Confidentiality of Alcohol and Drug Abuse Patient Records regulations: The Federal rules restrict any use of the information to criminally investigate or prosecute any alcohol or drug abuse patient.[facility] HospitalIn the event this information is protected by the Federal Confidentiality of Alcohol and Drug Abuse Patient Records regulations: The Federal rules restrict any use of the information to criminally investigate or prosecute any alcohol or drug abuse patient.[facility] HospitalIn the event this information is protected by the Federal Confidentiality of Alcohol and Drug Abuse Patient Records regulations: The Federal rules restrict any use of the information to criminally investigate or prosecute any alcohol or drug abuse patient.[facility] HospitalIn the event this information is protected by the Federal Confidentiality of Alcohol and Drug Abuse Patient Records regulations: The Federal rules restrict any use of the information to criminally investigate or prosecute any alcohol or drug abuse patient.[facility] HospitalIn the event this information is protected by the Federal Confidentiality of Alcohol and Drug Abuse Patient Records regulations: The Federal rules restrict any use of the information to criminally investigate or prosecute any alcohol or drug abuse patient.[facility] HospitalIn the event this information is protected by the Federal Confidentiality of Alcohol and Drug Abuse Patient Records regulations: The Federal rules restrict any use of the information to criminally investigate or prosecute any alcohol or drug abuse patient.[facility] HospitalIn the event this information is protected by the Federal Confidentiality of Alcohol and Drug Abuse Patient Records regulations: The Federal rules restrict any use of the information to criminally investigate or prosecute any alcohol or drug abuse patient.[facility] HospitalIn the event this information is protected by the Federal Confidentiality of Alcohol and Drug Abuse Patient Records regulations: The Federal rules restrict any use of the information to criminally investigate or prosecute any alcohol or drug abuse patient.[facility] HospitalIn the event this information is protected by the Federal Confidentiality of Alcohol and Drug Abuse Patient Records regulations: The Federal rules restrict any use of the information to criminally investigate or prosecute any alcohol or drug abuse patient.[facility] HospitalIn the event this information is protected by the Federal Confidentiality of Alcohol and Drug Abuse Patient Records regulations: The Federal rules restrict any use of the information to criminally investigate or prosecute any alcohol or drug abuse patient.[facility] HospitalIn the event this information is protected by the Federal Confidentiality of Alcohol and Drug Abuse Patient Records regulations: The Federal rules restrict any use of the information to criminally investigate or prosecute any alcohol or drug abuse patient.[facility] HospitalIn the event this information is protected by the Federal Confidentiality of Alcohol and Drug Abuse Patient Records regulations: The Federal rules restrict any use of the information to criminally investigate or prosecute any alcohol or drug abuse patient.[facility] HospitalIn the event this information is protected by the Federal Confidentiality of Alcohol and Drug Abuse Patient Records regulations: The Federal rules restrict any use of the information to criminally investigate or prosecute any alcohol or drug abuse patient.[facility] HospitalIn the event this information is protected by the Federal Confidentiality of Alcohol and Drug Abuse Patient Records regulations: The Federal rules restrict any use of the information to criminally investigate or prosecute any alcohol or drug abuse patient.[facility] HospitalIn the event this information is protected by the Federal Confidentiality of Alcohol and Drug Abuse Patient Records regulations: The Federal rules restrict any use of the information to criminally investigate or prosecute any alcohol or drug abuse patient.[facility] HospitalIn the event this information is protected by the Federal Confidentiality of Alcohol and Drug Abuse Patient Records regulations: The Federal rules restrict any use of the information to criminally investigate or prosecute any alcohol or drug abuse patient.[facility] the event this information is protected by the Federal Confidentiality of Alcohol and Drug Abuse Patient Records regulations: The Federal rules restrict any use of the information to criminally investigate or prosecute any alcohol or drug abuse patient.[facility] HospitalIn the event this information is protected by the Federal Confidentiality of Alcohol and Drug Abuse Patient Records regulations: The Federal rules restrict any use of the information to criminally investigate or prosecute any alcohol or drug abuse patient.[facility] HospitalIn the event this information is protected by the Federal Confidentiality of Alcohol and Drug Abuse Patient Records regulations: The Federal rules restrict any use of the information to criminally investigate or prosecute any alcohol or drug abuse patient.[facility]In the event this information is protected by the Federal Confidentiality of Alcohol and Drug Abuse Patient Records regulations: The Federal rules restrict any use of the information to criminally investigate or prosecute any alcohol or drug abuse patient.[facility] HospitalIn the event this information is protected by the Federal Confidentiality of Alcohol and Drug Abuse Patient Records regulations: The Federal rules restrict any use of the information to criminally investigate or prosecute any alcohol or drug abuse patient.[facility] HospitalIn the event this information is protected by the Federal Confidentiality of Alcohol and Drug Abuse Patient Records regulations: The Federal rules restrict any use of the information to criminally investigate or prosecute any alcohol or drug abuse patient.[facility] HospitalIn the event this information is protected by the Federal Confidentiality of Alcohol and Drug Abuse Patient Records regulations: The Federal rules restrict any use of the information to criminally investigate or prosecute any alcohol or drug abuse patient.[facility] HospitalIn the event this information is protected by the Federal Confidentiality of Alcohol and Drug Abuse Patient Records regulations: The Federal rules restrict any use of the information to criminally investigate or prosecute any alcohol or drug abuse patient.[facility] HospitalIn the event this information is protected by the Federal Confidentiality of Alcohol and Drug Abuse Patient Records regulations: The Federal rules restrict any use of the information to criminally investigate or prosecute any alcohol or drug abuse patient.[facility] HospitalIn the event this information is protected by the Federal Confidentiality of Alcohol and Drug Abuse Patient Records regulations: The Federal rules restrict any use of the information to criminally investigate or prosecute any alcohol or drug abuse patient.[facility] Reason for Visit (unrecogniz ed section and content) Specialty Diagnoses / Procedures Referred By Ayala cha Referred To Contact [facility] Home Care [address] [place] [id number] Referral ID Status Reason Start Date Expiration Date Visits Re quested Visits Authorized [id number] 1 1 Reason Comments Consult Reason Comments Home Care Follow for home care servies Reason Comments CoPat Stop 06/24/21 Reason Comments Patient Update Reason Comments 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 Reason Comments Post Op Specialty Diagnoses / Procedures Referred By Contac t Referred To Contact CT IMAGING Diagnoses Nonruptured cerebral aneurysm Procedures CT BRAIN WO IVCON CT HEAD/BRAIN W/O CONTRAST MATERIAL Maryam Salmeron, CERTIFIED ACTIVITIES DIRECTOR.PAINT BOOTH OPERATOR [address] [place] [address] Ct Imaging Referral ID Status Reason Start Date Expiration Date V isits Requested Visits Authorized [id number] Closed Auto-Generate d Referral 12/10/2021 02/08/2022 1 1 Reason Comments Established Patient 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 Reason Comments New Patient Reason Comments PAP Therapy Follow Up Specialty Diagnoses / Procedures Referred By Contac t Referred To Contact MR IMAGING Diagnoses Intracranial aneurysm Postoperative infection, unspecified type, subsequent encounter Acquired skull defect Postoperative wound dehiscence, initial encounter Nonruptured cerebral aneurysm Procedures MRI BRAIN WO/W IVCON MRI BRAIN BRAIN STEM W/O W/CONTRAST MATERIAL Nerissa Roy PA-C [address] [place] [address] Mr Imaging Referral ID Status Reason Start Date Expiration Date V isits Requested Visits Authorized [id number] Closed Auto-Generate d Referral 04/18/2022 06/17/2022 1 1 Reason Comments Follow Up Reason Comments Appointment Reason Comments High Blood Sugar PAP Therapy Follow Up Reason Comments Cpap setup Reason Comments Orders Reason Comments Nurse Triage Call Reason Comments Wound Evaluation scalp Reason Comments Results Orders Reason Comments Reminder Call Reason Comments Wound Check Right scalp Reason Comments PAP Therapy Follow Up P contacted via my chart Reason Comments Wound Check Scalp Reason Comments Breathing Problem Reason Comments Follow Up Increased SOB and in creased anxiety Reason Comments Spirometry Specialty Diagnoses / Procedures Referred By Contac t Referred To Contact [facility] Diagnoses GONCALVES (dyspnea on exertion) Procedures NITRIC OXIDE, EXHALED NITRIC OXIDE GAS DETERMINATION Rose Romero, CERTIFIED ACTIVITIES DIRECTOR.PAINT BOOTH OPERATOR [address] [place] [address] Respiratory [place] [address] [place] [address] Referral ID Status Reason Start Date Expiration Date V isits Requested Visits Authorized [id number] Closed Auto-Generate d Referral 08/17/2022 09/16/2023 1 1 Reason Comments New Patient New Pt : PCP consult for GONCALVES and precordial pain Hx of CVAStress, ECHO, and EKG in last yearRoom 13 Reason Comments Results Reason Comments New Patient Evaluation Specialty Diagnoses / Procedures Referred By Ayala t Referred To Contact Plastic Surgery Diagnoses Hx of craniotomy Postoperative wound dehiscence, subsequent encounter Drainage from wound Procedures CONSULT TO PLASTIC SURGERY OFFICE/OUTPATIENT NEW HIGH MDM 60-74 MINUTES Maryam Salmeron APRN.PAINT BOOTH OPERATOR [address] [place] [address] Referral ID Status Reason Start Date Expiration Date V isits Requested Visits Authorized [id number] Closed PCP Requested Referral 05/16/2022 05/16/2023 1 1 Reason Onset Date Comments Refill Request 05/23/2023 Reason Comments 6 Month Exam Reason Comments Rash Nurse Triage Call Reason Comments Rash On chest Reason Onset Date Comments Population Health Navigation Outreach 01/08/2024 [employer] workbench anali Reason Comments 6 Month Exam Rash still, and was in the ER 12/16/23 Reason Comments Medication Problem Reason Onset Date Comments Refill Request 02/01/2024 Reason Onset Date Comments Population Health Navigation Outreach 03/08/2024 [employer] workbench anali Reason Onset Date Comments Population Health Navigation Outreach 04/12/2024 [employer] workbench anali Reason Comments Triage Onbase_ [facility]: [facility]_ Requested to have images pushed through Reason Comments Fever Fever, vomiting, MARIE, bodyaches and chills x 3 days Reason Comments Established Patient Care Teams (unrecognized sec tion and content) Marketing Intern Relationship Specialty Start Date End Date Yessenia Rodriguez MD [address] [place], [place] [id number] PCP - General Family Practice 11/24/19 Amairani Quintero MD [address] [place] [address] Consulting Infectious Diseases 05/17/21 Yessenia Rodriguez MD [address] [place] [address] Home Care Physician Family Practice 05/17/21 Luz Marina Neil PA-C [address] [place] [address] Referring Neurosurgery 05/18/21 Adilene Lino MD [address] [place] [address] Consulting Neurosurgery 05/18/21 Go Wolf, RN [address] [place] [address] Loss Prevention Agent Post Acute Care 05/18/21 Marketing Intern Relationship Specialty Start Date End Date Yessenia Rodriguez MD [address] [place] [address] PCP - General Family Practice 11/24/19 Amariani Quintero MD [address] [place] [address] Consulting Infectious Diseases 05/17/21 Yessenia Rodriguez MD [address] [place] [address] Home Care Physician Family Practice 05/17/21 Luz Marina Neil PA-C [address] [place] [address] Referring Neurosurgery 05/18/21 Adilene Lino MD [address] [place] [address] Consulting Neurosurgery 05/18/21 Go Wolf, LORENZO [address] [place] [address] Loss Prevention Agent Post Acute Care 05/18/21 Marketing Intern Relationship Specialty Start Date End Date Yessenia Rodriguez MD [address] [place] [address] PCP - General Family Practice 11/24/19 Amairani Quintero MD [address] [place] [address] Consulting Infectious Diseases 05/17/21 Yessenia Rodriguez MD [address] [place] [address] Home Care Physician Family Practice 05/17/21 Luz Marina Neil PA-C [address] [place] [address] Referring Neurosurgery 05/18/21 Adilene Lino MD [address] [place] [address] Consulting Neurosurgery 05/18/21 Go Wolf, LORENZO [address] [place] [address] Loss Prevention Agent Post Acute Care 05/18/21 Marketing Intern Relationship Specialty Start Date End Date Yessenia Rodriguez MD [address] [place] [address] PCP - General Family Practice 11/24/19 Amairani Quintero MD [address] [place] [address] Consulting Infectious Diseases 05/17/21 Yessenia Rodriguez MD [address] [place] [address] Home Care Physician Family Practice 05/17/21 Luz Marina Neil PA-C [address] [place] [address] Referring Neurosurgery 05/18/21 Adilene Lino MD [address] [place] [address] Consulting Neurosurgery 05/18/21 Go Wolf RN [address] [place] [address] Loss Prevention Agent Post Acute Care 05/18/21 Marketing Intern Relationship Specialty Start Date End Date Yessenia Rodriguez MD [address] [place], [place] [id number] PCP - General Family Practice 11/24/19 Amairani Quintero MD [address] [place], [place] [address] Consulting Infectious Diseases 05/17/21 Yessenia Rodriguez MD [address] [place] [address] Home Care Physician Family Practice 05/17/21 Luz Marina Neil PA-C [address] [place] [address] Referring Neurosurgery 05/18/21 Adilene Lino MD [address] [place] [address] Consulting Neurosurgery 05/18/21 Go Wolf, LORENZO [address] [place] [address] Loss Prevention Agent Post Acute Care 05/18/21 Marketing Intern Relationship Specialty Start Date End Date Yessenia Rodriguez MD [address] [place], [place] [id number] PCP - General Family Practice 11/24/19 Amairani Quintero MD [address] [place] [address] Consulting Infectious Diseases 05/17/21 Yessenia Rodriguez MD [address] [place], [place] [id number] Home Care Physician Family Practice 05/17/21 Luz Marina Neil PA-C [address] [place], [place] [address] Referring Neurosurgery 05/18/21 Adilene Lino MD [address] [place] [address] Consulting Neurosurgery 05/18/21 Go Wolf, RN [address] [place] [address] Loss Prevention Agent Post Acute Care 05/18/21 Marketing Intern Relationship Specialty Start Date End Date Yessenia Rodriguez MD [address] [place] [address] PCP - General Family Practice 11/24/19 Amairani Quintero MD [address] [place] [address] Consulting Infectious Diseases 05/17/21 Yessenia Rodriguez MD [address] [place] [address] Home Care Physician Family Practice 05/17/21 Luz Marina Neil PA-C [address] [place] [address] Referring Neurosurgery 05/18/21 Adilene Lino MD [address] [place], [place] [address] Consulting Neurosurgery 05/18/21 Go Wolf, LORENZO [address] [place], [place] [id number] Loss Prevention Agent Post Acute Care 05/18/21 Marketing Intern Relationship Specialty Start Date End Date Yessenia Rodriguez MD [address] [place] [address] PCP - General Family Practice 11/24/19 Amairani Quintero MD [address] [place] [address] Consulting Infectious Diseases 05/17/21 Yessenia Rodriguez MD [address] [place] [address] Home Care Physician Family Practice 05/17/21 Luz Marina Neil PA-C [address] [place] [address] Referring Neurosurgery 05/18/21 dAilene Lino MD [address] [place] [address] Consulting Neurosurgery 05/18/21 Go Wolf, LORENZO [address] [place] [address] Loss Prevention Agent Post Acute Care 05/18/21 Marketing Intern Relationship Specialty Start Date End Date Yessenia Rodriguez MD [address] [place] [address] PCP - General Family Practice 11/24/19 Amairani Quintero MD [address] [place] [address] Consulting Infectious Diseases 05/17/21 Yessenia Rodriguez MD [address] [place] [address] Home Care Physician Family Practice 05/17/21 Luz Marina Neil PA-C [address] [place] [address] Referring Neurosurgery 05/18/21 Adilene Lino MD [address] [place] [address] Consulting Neurosurgery 05/18/21 Go Wolf, LORENZO [address] [place] [address] Loss Prevention Agent Post Acute Care 05/18/21 Marketing Intern Relationship Specialty Start Date End Date Yessenia Rodriguez MD [address] [place] [address] PCP - General Family Practice 11/24/19 Amairani Quintero MD [address] [place] [address] Consulting Infectious Diseases 05/17/21 Yessenia Rodriguez MD [address] [place] [address] Home Care Physician Family Practice 05/17/21 Luz Marina Neil PA-C [address] [place] [address] Referring Neurosurgery 05/18/21 Adilene Lino MD [address] [place], [place] 15[address]24 Consulting Neurosurgery 05/18/21 Go Wolf, RN [address] [place] [address] Loss Prevention Agent Post Acute Care 05/18/21 Marketing Intern Relationship Specialty Start Date End Date Yessenia Rodriguez MD [address] [place] [address] PCP - General Family Practice 11/24/19 Amairani Quintero MD [address] [place] [address] Consulting Infectious Diseases 05/17/21 Yessenia Rodriguez MD [address] [place] [address] Home Care Physician Family Practice 05/17/21 Luz Marina Neil PA-C [address] [place] [address] Referring Neurosurgery 05/18/21 Adilene Lino MD [address] [place], [place] 335[address]24 Consulting Neurosurgery 05/18/21 Marketing Intern Relationship Specialty Start Date End Date Yessenia Rodriguez MD [address] [place] [address] PCP - General Family Practice 11/24/19 Amairani Quintero MD [address] [place] [address] Consulting Infectious Diseases 05/17/21 Yessenia Rodriguez MD [address] [place] [address] Home Care Physician Family Practice 05/17/21 Luz Marina Neil PA-C [address] [place] [address] Referring Neurosurgery 05/18/21 Adilene Lino MD [address] [place], [place] [address]69124 Consulting Neurosurgery 05/18/21 Marketing Intern Relationship Specialty Start Date End Date Yessneia Rodriguez MD [address] [place] [address] PCP - General Family Practice 11/24/19 Amairani Quintero MD [address] [place] [address] Consulting Infectious Diseases 05/17/21 Yessenia Rodriguez MD [address] [place] [address] Home Care Physician Family Practice 05/17/21 Luz Marina Neil PA-C [address] [place] [address] Referring Neurosurgery 05/18/21 Adilene Lino MD [address] [place], [place] 7148724 Consulting Neurosurgery 05/18/21 Marketing Intern Relationship Specialty Start Date End Date Yessenia Rodriguez MD [address] [place] [address] PCP - General Family Practice 11/24/19 Amairani Quintero MD [address] [place] [address] Consulting Infectious Diseases 05/17/21 Yessenia Rodriguez MD [address] [place] [address] Home Care Provider Family Practice 05/17/21 Luz Marina Neil PA-C [address] [place] [address] Referring Neurosurgery 05/18/21 Adilene Lino MD [address] [place], [place] 260[address]24 Consulting Neurosurgery 05/18/21 Marketing Intern Relationship Specialty Start Date End Date Yessenia Rodriguez MD [address] [place] [address] PCP - General Family Medicine 11/24/19 Amairani Quintero MD [address] [place] [address] Consulting Infectious Diseases 05/17/21 Yessenia Rodriguez MD [address] [place] [address] Home Care Provider Family Medicine 05/17/21 Luz Marina Neil PA-C [address] [place] [address] Referring Neurosurgery 05/18/21 Adilene Lino MD [address] [place], [place] 135[address]24 Consulting Neurosurgery 05/18/21 Marketing Intern Relationship Specialty Start Date End Date Yessenia Rodriguez MD [address] [place] [address] PCP - General Family Medicine 11/24/19 Amairani Quintero MD [address] [place] [address] Consulting Infectious Diseases 05/17/21 Yessenia Rodriguez MD [address] [place] [address] Home Care Provider Family Medicine 05/17/21 Luz Marina Neil PA-C [address] [place] [address] Referring Neurosurgery 05/18/21 Adilene Lino MD [address] [place] [address] Consulting Neurosurgery 05/18/21 Marketing Intern Relationship Specialty Start Date End Date Yessenia Rodriguez MD [address] [place] [address] PCP - General Family Medicine 11/24/19 Amairani Quintero MD [address] [place] [address] Consulting Infectious Diseases 05/17/21 Yessenia Rodriguez MD [address] [place] [address] Home Care Provider Family Medicine 05/17/21 Luz Marina Neil PA-C [address] [place] [address] Referring Neurosurgery 05/18/21 Adilene Lino MD [address] [place], [place] 216[address]24 Consulting Neurosurgery 05/18/21 Marketing Intern Relationship Specialty Start Date End Date Yessenia Rodriguez MD [address] [place] [address] PCP - General Family Medicine 11/24/19 Amairani Quintero MD [address] [place] [address] Consulting Infectious Diseases 05/17/21 Yessenia Rodriguez MD [address] [place] [address] Home Care Provider Family Medicine 05/17/21 Luz Marina Neil PA-C [address] [place] [address] Referring Neurosurgery 05/18/21 Adilene Lino MD [address] [place], [place] 5535624 Consulting Neurosurgery 05/18/21 Marketing Intern Relationship Specialty Start Date End Date Yessenia Rodriguez MD [address] [place] [address] PCP - General Family Medicine 11/24/19 Amairani Quintero MD [address] [place] [address] Consulting Infectious Diseases 05/17/21 Yessenia Rodriguez MD [address] [place] [address] Home Care Provider Family Medicine 05/17/21 Luz Marina Neil PA-C [address] [place] [address] Referring Neurosurgery 05/18/21 Adilene Lino MD [address] [place], [place] 9860924 Consulting Neurosurgery 05/18/21 Marketing Intern Relationship Specialty Start Date End Date Yessenia Rodriguez MD [address] [place] [address] PCP - General Family Medicine 11/24/19 Amairani Quintero MD [address] [place] [address] Consulting Infectious Diseases 05/17/21 Yessenia Rodriguez MD [address] [place] [address] Home Care Provider Family Medicine 05/17/21 Luz Marina Neil PA-C [address] [place], [place] [address] Referring Neurosurgery 05/18/21 Adilene Lino MD [address] [place] [address] Consulting Neurosurgery 05/18/21 Marketing Intern Relationship Specialty Start Date End Date Yessneia Rodriguez MD [address] [place] [address] PCP - General Family Medicine 11/24/19 Amairani Quintero MD [address] [place], [place] 3269[address] Consulting Infectious Diseases 05/17/21 Yessenia Rodriguez MD [address] [place], [place] 68[address] Home Care Provider Family Medicine 05/17/21 Luz Marina Neil PA-C [address] [place], [place] [address] Referring Neurosurgery 05/18/21 Adilene Lino MD [address] [place], [place] 5283424 Consulting Neurosurgery 05/18/21 Marketing Intern Relationship Specialty Start Date End Date Yessenia Rodriguez MD [address] [place] [address] PCP - General Family Medicine 11/24/19 Amairani Quintero MD [address] [place] [address] Consulting Infectious Diseases 05/17/21 Yessenia Rodriguez MD [address] [place] [address] Home Care Provider Family Medicine 05/17/21 Luz Marina Neil PA-C [address] [place] [address] Referring Neurosurgery 05/18/21 Adilene Lino MD [address] [place] [address] Consulting Neurosurgery 05/18/21 Marketing Intern Relationship Specialty Start Date End Date Yessenia Rodriguez MD [address] [place] [address] PCP - General Family Medicine 11/24/19 Amairani Quintero MD [address] [place] [address] Consulting Infectious Diseases 05/17/21 Yessenia Rodriguez MD [address] [place] [address] Home Care Provider Family Medicine 05/17/21 Luz Marina Neil PA-C [address] [place] [address] Referring Neurosurgery 05/18/21 Adilene Lino MD [address] [place] [address] Consulting Neurosurgery 05/18/21 Marketing Intern Relationship Specialty Start Date End Date Yessenia Rodriguez MD [address] [place] [address] PCP - General Family Medicine 11/24/19 Amairani Quintero MD [address] [place], [place] [address]395 Consulting Infectious Diseases 05/17/21 Yessenia Rodriguez MD [address] [place] [address] Home Care Provider Family Medicine 05/17/21 Luz Marina Neil PA-C [address] [place] [address] Referring Neurosurgery 05/18/21 Adilene Lino MD [address] [place] [address] Consulting Neurosurgery 05/18/21 Marketing Intern Relationship Specialty Start Date End Date Yessenia Rodriguez MD [address] [place] [address] PCP - General Family Medicine 11/24/19 Amairani Quintero MD [address] [place] [address] Consulting Infectious Diseases 05/17/21 Yessenia Rodriguez MD [address] [place] [address] Home Care Provider Family Medicine 05/17/21 Luz Marina Neil PA-C [address] [place] [address] Referring Neurosurgery 05/18/21 Adilene Lino MD [address] [place], [place] 0094024 Consulting Neurosurgery 05/18/21 Marketing Intern Relationship Specialty Start Date End Date Yessenia Rodriguez MD [address] [place] [address] PCP - General Family Medicine 11/24/19 Amairani Quintero MD [address] [place] [address] Consulting Infectious Diseases 05/17/21 Yessenia Rodriguez MD [address] [place] [address] Home Care Provider Family Medicine 05/17/21 Luz Marina Neil PA-C [address] [place] [address] Referring Neurosurgery 05/18/21 Adilene Lino MD [address] [place] [address] Consulting Neurosurgery 05/18/21 Marketing Intern Relationship Specialty Start Date End Date Yessenia Rodriguez MD [address] [place] [address] PCP - General Family Medicine 11/24/19 Amairani Quintero MD [address] [place] [address] Consulting Infectious Diseases 05/17/21 Yessenia Rodriguez MD [address] [place] [address] Home Care Provider Family Medicine 05/17/21 Luz Marina Neil PA-C [address] [place] [address] Referring Neurosurgery 05/18/21 Adilene Lino MD [address] [place] [address] Consulting Neurosurgery 05/18/21 Marketing Intern Relationship Specialty Start Date End Date Yessenia Rodriguez MD [address] [place] [address] PCP - General Family Medicine 11/24/19 Amairani Quintero MD [address] [place] [address] Consulting Infectious Diseases 05/17/21 Yessenia Rodriguez MD [address] [place] [address] Home Care Provider Family Medicine 05/17/21 Luz Marina Neil PA-C [address] [place] [address] Referring Neurosurgery 05/18/21 Adilene Lino MD [address] [place] [address] Consulting Neurosurgery 05/18/21 Marketing Intern Relationship Specialty Start Date End Date Yessenia Rodriguez MD [address] [place] [address] PCP - General Family Medicine 11/24/19 Amairani Quintero MD [address] [place] [address] Consulting Infectious Diseases 05/17/21 Yessenia Rodriguez MD [address] [place] [address] Home Care Provider Family Medicine 05/17/21 Luz Marina Neil PA-C [address] [place] [address] Referring Neurosurgery 05/18/21 Adilene Lino MD [address] [place], [place] 6024124 Consulting Neurosurgery 05/18/21 Marketing Intern Relationship Specialty Start Date End Date Yessenia Rodriguez MD [address] [place] [address] PCP - General Family Medicine 11/24/19 Amairani Quintero MD [address] [place] [address] Consulting Infectious Diseases 05/17/21 Yessenia Rodriguez MD [address] [place] [address] Home Care Provider Family Medicine 05/17/21 Luz Marina Neil PA-C [address] [place] [address] Referring Neurosurgery 05/18/21 Adilene Lino MD [address] [place] [address] Consulting Neurosurgery 05/18/21 Marketing Intern Relationship Specialty Start Date End Date Yessenia Rodriguez MD [address] [place] [address] PCP - General Family Medicine 11/24/19 Amairani Quintero MD [address] [place], [place] [address] Consulting Infectious Diseases 05/17/21 Yessenia Rodriguez MD [address] [place] [address] Home Care Provider Family Medicine 05/17/21 Luz Marina Neli PA-C [address] [place] [address] Referring Neurosurgery 05/18/21 Adilene Lino MD [address] [place] [address] Consulting Neurosurgery 05/18/21 Marketing Intern Relationship Specialty Start Date End Date Yessenia Rodriguez MD [address] [place] [address] PCP - General Family Medicine 11/24/19 Amairani Quintero MD [address] [place], [place] [address] Consulting Infectious Diseases 05/17/21 Yesseina Rodriguez MD [address] [place] [address] Home Care Provider Family Medicine 05/17/21 Luz Marina Neil PA-C [address] [place] [address] Referring Neurosurgery 05/18/21 Adilene Lino MD [address] [place] [address] Consulting Neurosurgery 05/18/21 Marketing Intern Relationship Specialty Start Date End Date Yessenia Rodriguez MD [address] [place] [address] PCP - General Family Medicine 11/24/19 Amairani Quintero MD [address] [place] [address] Consulting Infectious Diseases 05/17/21 Yessenia Rodriguez MD [address] [place] [address] Home Care Provider Family Medicine 05/17/21 Luz Marina Neil PA-C [address] [place] [address] Referring Neurosurgery 05/18/21 Adilene Lino MD [address] [place] [address] Consulting Neurosurgery 05/18/21 Marketing Intern Relationship Specialty Start Date End Date Yessenia Rodriguez MD [address] [place] [address] PCP - General Family Medicine 11/24/19 Amairani Quintero MD [address] [place] [address] Consulting Infectious Diseases 05/17/21 Yessenia Rodriguez MD [address] [place] [address] Home Care Provider Family Medicine 05/17/21 Luz Marina Neil PA-C [address] [place] [address] Referring Neurosurgery 05/18/21 Adilene Lino MD [address] [place] [address] Consulting Neurosurgery 05/18/21 Marketing Intern Relationship Specialty Start Date End Date Yessenia Rodriguez MD [address] [place] [address] PCP - General Family Medicine 11/24/19 Amairani Quintero MD [address] [place] [address] Consulting Infectious Diseases 05/17/21 Yessenia Rodriguez MD [address] [place] [address] Home Care Provider Family Medicine 05/17/21 Luz Marina Neil PA-C [address] [place] [address] Referring Neurosurgery 05/18/21 Adilene Lino MD [address] [place], [place] 4352824 Consulting Neurosurgery 05/18/21 Marketing Intern Relationship Specialty Start Date End Date Yessenia Rodriguez MD [address] [place], [place] [address] PCP - General Family Medicine 11/24/19 Amairani Quintero MD [address] [place] [address] Consulting Infectious Diseases 05/17/21 Yessenia Rodriguez MD [address] [place] [address] Home Care Provider Family Medicine 05/17/21 Luz Marina Neil PA-C [address] [place] [address] Referring Neurosurgery 05/18/21 Adilene Lino MD [address] [place], [place] 2169324 Consulting Neurosurgery 05/18/21 Marketing Intern Relationship Specialty Start Date End Date Yessenia Rodriguez MD [address] [place] [address] PCP - General Family Medicine 11/24/19 Amairani Quintero MD [address] [place] [address] Consulting Infectious Diseases 05/17/21 Yessenia Rodriguez MD [address] [place] [address] Home Care Provider Family Medicine 05/17/21 Luz Marina Neil, PATeresaC [address] [place] [address] Referring Neurosurgery 05/18/21 Adilene Lino MD [address] [place], [place] 4544624 Consulting Neurosurgery 05/18/21 Marketing Intern Relationship Specialty Start Date End Date Yessenia Rodriguez MD [address] [place] [address] PCP - General Family Medicine 11/24/19 Amairani Quintero MD [address] [place] [address] Consulting Infectious Diseases 05/17/21 Yessenia Rodriguez MD [address] [place] [address] Home Care Provider Family Medicine 05/17/21 Luz Marina Neil, PA-C [address] [place] [address] Referring Neurosurgery 05/18/21 Adilene Lino MD [address] [place], [place] 1503724 Consulting Neurosurgery 05/18/21 Marketing Intern Relationship Specialty Start Date End Date Yessenia Rodriguez MD [address] [place] [address] PCP - General Family Medicine 11/24/19 Amairani Quintero MD [address] [place], [place] [address]78[address] Consulting Infectious Diseases 05/17/21 Yessenia Rodriguez MD [address] [place] [address] Home Care Provider Family Medicine 05/17/21 Luz Marina Neil PA-C [address] [place] [address] Referring Neurosurgery 05/18/21 Adilene Lino MD [address] [place], [place] 5556824 Consulting Neurosurgery 05/18/21 Marketing Intern Relationship Specialty Start Date End Date Yessenia Rodriguez MD [address] [place] [address] PCP - General Family Medicine 11/24/19 Amairani Quintero MD [address] [place], [place] 8574695 Consulting Infectious Diseases 05/17/21 Yessenia Rodriguez MD [address] [place], [place] [address] Home Care Provider Family Medicine 05/17/21 Luz Marina Neil PA-C [address] [place], [place] 269[address] Referring Neurosurgery 05/18/21 Adilene Lino MD [address] [place], [place] 4954424 Consulting Neurosurgery 05/18/21 Marketing Intern Relationship Specialty Start Date End Date Yessenia Rodriguez MD [address] [place], [place] [address] PCP - General Family Medicine 11/24/19 Amairani Quintero MD [address] [place], [place] 8767395 Consulting Infectious Diseases 05/17/21 Yessenia Rodriguez MD [address] [place], [place] 38067256 Home Care Provider Family Medicine 05/17/21 Luz Marina Neil PA-C [address] [place], [place] [address] Referring Neurosurgery 05/18/21 Adilene Lino MD [address] [place] [address] Consulting Neurosurgery 05/18/21 Marketing Intern Relationship Specialty Start Date End Date Yessenia Rodriguez MD [address] [place], [place] [address] PCP - General Family Medicine 11/24/19 Amairani Quintero MD [address] [place], [place] 400[address] Consulting Infectious Diseases 05/17/21 Yessenia Rodriguez MD [address] [place] [address] Home Care Provider Family Medicine 05/17/21 Luz Marina Neil PA-C [address] [place], [place] [address]94[address] Referring Neurosurgery 05/18/21 Adilene Lino MD [address] [place], [place] 7825924 Consulting Neurosurgery 05/18/21 Marketing Intern Relationship Specialty Start Date End Date Yessenia Rodriguez MD [address] [place] [address] PCP - General Family Medicine 11/24/19 Amairani Quintero MD [address] [place] [address] Consulting Infectious Diseases 05/17/21 Yessenia Rodriguez MD [address] [place] [address] Home Care Provider Family Medicine 05/17/21 Luz Marina Neil PA-C [address] [place] [address] Referring Neurosurgery 05/18/21 Adilene Lnio MD [address] [place], [place] 3002324 Consulting Neurosurgery 05/18/21 Marketing Intern Relationship Specialty Start Date End Date Yessenia Rodriguez MD [address] [place] [address] PCP - General Family Medicine 11/24/19 Amairani Quintero MD [address] [place], [place] [address]24[address] Consulting Infectious Diseases 05/17/21 Yessenia Rodriguez MD [address] [place] [address] Home Care Provider Family Medicine 05/17/21 Luz Marina Neil PA-C [address] [place], [place] [id number] Referring Neurosurgery 05/18/21 Adilene Lino MD [address] [place], [place] [id number] Consulting Neurosurgery 05/18/21 Marketing Intern Relationship Specialty Start Date End Date Yessenia Rodriguez MD [address] [place] [address] PCP - General Family Medicine 11/24/19 Amairani Quintero MD [address] [place] [address] Consulting Infectious Diseases 05/17/21 Yessenia Rodriguez MD [address] [place] [address] Home Care Provider Family Medicine 05/17/21 Luz Marina Neil PA-C [address] [place], [place] [phone] Referring Neurosurgery 05/18/21 Adilene Lino MD [address] [place], [place] [phone] Consulting Neurosurgery 05/18/21 Marketing Intern Relationship Specialty Start Date End Date Yessenia Rodriguez MD [address] [place] [address] PCP - General Family Medicine 11/24/19 Amairani Quintero MD [address] [place] [address] Consulting Infectious Diseases 05/17/21 Yessenia Rodriguez MD [address] [place] [address] Home Care Provider Family Medicine 05/17/21 Luz Marina Neil PA-C [phone] [place], [place] [phone] Referring Neurosurgery 05/18/21 Adilene Lino MD [address] [place] [address] Consulting Neurosurgery 05/18/21 Marketing Intern Relationship Specialty Start Date End Date Yessenia Rodriguez MD [address] [place] [address] PCP - General Family Medicine 11/24/19 Amairani Quintero MD [address] [place] [address] Consulting Infectious Diseases 05/17/21 Yessenia Rodriguez MD [address] [place] [address] Home Care Provider Family Medicine 05/17/21 Luz Marina Neil PA-C [address] [place], [place] [phone] Referring Neurosurgery 05/18/21 Adliene Lino MD [address] [place], [place] [phone] Consulting Neurosurgery 05/18/21 Marketing Intern Relationship Specialty Start Date End Date Yessenia Rodriguez MD [address] [place] [address] PCP - General Family Medicine 11/24/19 Amairani Quintero MD [address] [place] [place], [place] [id number] Consulting Infectious Diseases 05/17/21 Yessenia Rodriguez MD [address] [place] [address] Home Care Provider Family Medicine 05/17/21 Luz Marina Neil PA-C [address] [place], [place] [phone] Referring Neurosurgery 05/18/21 Adilene Lino MD [address] [place], [place] [phone] Consulting Neurosurgery 05/18/21 Marketing Intern Relationship Specialty Start Date End Date Yessenia Rodriguez MD [address] [place] [address] PCP - General Family Medicine 11/24/19 Amairani Quintero MD [address] [place], [place] [phone] Consulting Infectious Diseases 05/17/21 Yessenia Rodriguez MD [address] [place] [address] Home Care Provider Family Medicine 05/17/21 Luz Marina Neil PA-C [address] [place] [address] Referring Neurosurgery 05/18/21 Adilene Lino MD [address] [place] [address] Consulting Neurosurgery 05/18/21 Marketing Intern Relationship Specialty Start Date End Date Yessenia Rodriguez MD [address] [place] [address] PCP - General Family Medicine 11/24/19 Amairani Quintero MD [address] [place] [address] Consulting Infectious Diseases 05/17/21 Yessenia Rodriguez MD [address] [place] [address] Home Care Provider Family Medicine 05/17/21 Luz Marina Neil PA-C [address] [place] [address] Referring Neurosurgery 05/18/21 Adilene Lino MD [address] [place], [place] [phone] Consulting Neurosurgery 05/18/21 Marketing Intern Relationship Specialty Start Date End Date Yessenia Rodriguez MD [address] [place] [address] PCP - General Family Medicine 11/24/19 Amairani Quintero MD [address] [place] [address] Consulting Infectious Diseases 05/17/21 Yessenia Rodriguez MD [address] [place] [address] Home Care Provider Family Medicine 05/17/21 Luz Marina Neil PA-C [address] [place] [address] Referring Neurosurgery 05/18/21 Adielne Lino MD [address] [place], [place] [phone] Consulting Neurosurgery 05/18/21 Marketing Intern Relationship Specialty Start Date End Date Yessenia Rodriguez MD [address] [place] [address] PCP - General Family Medicine 11/24/19 Amairani Quintero MD [address] [place] [address] Consulting Infectious Diseases 05/17/21 Yessenia Rodriguez MD [address] [place] [address] Home Care Provider Family Medicine 05/17/21 Luz Marina Neil PA-C [address] [place], [place] [phone] Referring Neurosurgery 05/18/21 Adilene Lino MD [address] [place], [place] [phone] Consulting Neurosurgery 05/18/21 Marketing Intern Relationship Specialty Start Date End Date Yessenia Rodriguez MD [address] [place] [address] PCP - General Family Medicine 11/24/19 Amairani Quintero MD [address] [place], [place] [phone] Consulting Infectious Diseases 05/17/21 Yessenia Rodriguez MD [address] [place] [address] Home Care Provider Family Medicine 05/17/21 Luz Marina Neil PA-C [address] [place], [place] [phone] Referring Neurosurgery 05/18/21 Adilene Lino MD [address] [place] [address] Consulting Neurosurgery 05/18/21 Marketing Intern Relationship Specialty Start Date End Date Yessenia Rodriguez MD [address] [place] [address] PCP - General Family Medicine 11/24/19 Amairani Quintero MD [address] [place], [place] [id number] Consulting Infectious Diseases 05/17/21 Yessenia Rodriguez MD [address] [place], [place] [phone] Home Care Provider Family Medicine 05/17/21 Luz Marina Neil PA-C [address] [place] [address] Referring Neurosurgery 05/18/21 Adilene Lino MD [address] [place] [address] Consulting Neurosurgery 05/18/21 Marketing Intern Relationship Specialty Start Date End Date Yessenia Rodriguez MD [address] [place] [address] PCP - General Family Medicine 11/24/19 Amairani Quintero MD [address] [place], [place] [phone] Consulting Infectious Diseases 05/17/21 Yessenia Rodriguez MD [address] [place] [address] Home Care Provider Family Medicine 05/17/21 Luz Marina Neil PA-C [address] [place], [place] [phone] Referring Neurosurgery 05/18/21 Adilene Lino MD [address] [place] [address] Consulting Neurosurgery 05/18/21 Marketing Intern Relationship Specialty Start Date End Date Yessenia Rodriguez MD [address] [place] [address] PCP - General Family Medicine 11/24/19 Amairani Quintero MD [address] [place], [place] [id number] Consulting Infectious Diseases 05/17/21 Yessenia Rodriguez MD [address] [place] [address] Home Care Provider Family Medicine 05/17/21 Luz Marina Neil PA-C [address] [place] [address] Referring Neurosurgery 05/18/21 Adilene Lino MD [address] [place] [address] Consulting Neurosurgery 05/18/21 Luz Marina Mcmahan PA-C [address] [place] [address] Hospice/Home Health Aide Family Medicine 02/18/24 Marketing Intern Relationship Specialty Start Date End Date Amairani Quintero MD [address] [place] [address] Consulting Infectious Diseases 05/17/21 Yessenia Rodriguez MD [address] [place] [address] Home Care Provider Family Medicine 05/17/21 Luz Marina Neil PA-C [address] [place] [address] Referring Neurosurgery 05/18/21 Adilene Lino MD [address] [place] [address] Consulting Neurosurgery 05/18/21 Luz Marina Mcmahan PA-C [address] [place] [address] Hospice/Home Health Aide Family [facility] 02/18/24 Marketing Intern Relationship Specialty Start Date End Date Yohan Roblero CNP [address] [place] [address] PCP - General Family Medicine 05/06/24 Amairani Quintero MD [address] [place], [place] [id number] Consulting Infectious Diseases 05/17/21 Yessenia Rodriguez MD [address] [place] [address] Home Care Provider Family Medicine 05/17/21 Luz Marina Neil PA-C [phone] [place], [place] [phone] Referring Neurosurgery 05/18/21 Adilene Lino MD [address] [place] [address] Consulting Neurosurgery 05/18/21 Luz Marina Mcmahan PA-C [address] [place] [address] Hospice/Home Health Aide Family Medicine 02/18/24 Marketing Intern Relationship Specialty Start Date End Date Yohan Roblero, PAINT BOOTH OPERATOR [address] [place] [address] PCP - General Family Medicine 05/06/24 Amairani Quintero MD [address] [place] [address] Consulting Infectious Diseases 05/17/21 Yessenia Rodriguez MD [address] [place] [address] Home Care Provider Family Medicine 05/17/21 Luz Marina Neil PA-C [address] [place] [address] Referring Neurosurgery 05/18/21 Adilene Lino MD [address] [place] [address] Consulting Neurosurgery 05/18/21 Luz Marina Mcmahan PA-C [address] [place] [address] Hospice/Home Health Aide Family Medicine 02/18/24 Marketing Intern Relationship Specialty Start Date End Date Yohan Roblero PAINT BOOTH OPERATOR [address] [place] [address] PCP - General Family Medicine 05/06/24 Amairani Quintero MD [address] [place] [address] Consulting Infectious Diseases 05/17/21 Yessenia Rodriguez MD [address] [place] [address] Home Care Provider Family Medicine 05/17/21 Luz Marina Neil PA-C [address] [place] [address] Referring Neurosurgery 05/18/21 Adilene Lino MD [address] [place] [address] Consulting Neurosurgery 05/18/21 Luz Marina Mcmahan PA-C [address] [place] [address] Hospice/Home Health Aide Family Medicine 02/18/24 Marketing Intern Relationship Specialty Start Date End Date Yohan Roblero CNP [address] [place] [address] PCP - General Family Medicine 05/06/24 Amairani Quintero MD [address] [place] [address] Consulting Infectious Diseases 05/17/21 Yessenia Rodriguez MD [address] [place] [address] Home Care Provider Family Medicine 05/17/21 Luz Marina Neil PA-C [address] [place] [address] Referring Neurosurgery 05/18/21 Adilene Lino MD [address] [place] [address] Consulting Neurosurgery 05/18/21 Luz Marina Mcmahan PA-C [address] [place] [address] Hospice/Home Health Aide Family Medicine 02/18/24 Marketing Intern Relationship Specialty Start Date End Date Yohan Roblero, PAINT BOOTH OPERATOR [address] [place] [address] PCP - General Family Medicine 05/06/24 Amairani Quintero MD [address] [place] [address] Consulting Infectious Diseases 05/17/21 Yessenia Rodriguez MD [address] [place] [address] Home Care Provider Family Medicine 05/17/21 Luz Marina Neil PA-C [address] [place] [address] Referring Neurosurgery 05/18/21 Adilene Lino MD [address] [place] [address] Consulting Neurosurgery 05/18/21 Luz Marina Mcmahan PA-C [address] [place] [address] Hospice/Home Health Aide Family [facility] 02/18/24 Team Status: Active Member Role Status Dates Yohan Roblero NP, AMBULANCE OPERATIONS SUPERVISOR-C Primary Care Provider Active Team Status: Inactive Member Role Status Dates oYhan Roblero NP, AMBULANCE OPERATIONS SUPERVISOR-C Primary Care Provider Active Start: May 03, 2024 End: May 03, 2024 Yohan Roblero NP, AMBULANCE OPERATIONS SUPERVISOR-C Referring Provider Active S tart: May 03, 2024 End: May 03, 2024 Dr. José Miguel Bee MD Attending Provider Active Start: May 03, 2024 End: May 03, 2024 Team Status: Inactive Member Role Status Dates Yohan Roblero NP, AMBULANCE OPERATIONS SUPERVISOR-C Primary Care Provider Active Start: May 27, 2024 End: May 27, 2024 Dr. Kallie Ghosh DO Emergency Provider Active Start: May 27, 2024 End: May 27, 2024 Goals (unrecognized section and content) Goals may be documented in a n alternate section FOR RECORDS PERTAINING TO PATIENTS WHO ARE OR HAVE BEEN ENROLLED IN A CHEMICAL DEPENDENCY/SUBSTANCEABUSE PROGRAM, SOME INFORMATION MAY BE OMITTED. This clinical summary was aggregated from multiple sources. Caution should be exercised in using it in the provision of clinical care. This summary normalizes information from multiple sources, and as a consequence, information in this document may materially change the coding, format and clinical context of patient data. In addition, data may be omitted in some cases. CLINICAL DECISIONS SHOULD BE BASED ON THE PRIMARY CLINICAL RECORDS. [employer] [facility]. provides no warranty or guarantee of the accuracy or completeness of information in this document.
[2025-03-06 19:30] VITALS: BP 121/69; PULSE 85; RESP 16; TEMP 36.6; O2SAT 97
[2025-03-06] MEDS: HYDROcodone Bitartrate/Apap 5/325 Tablet PO (19:42)
== END 2025-03-06 19:45 | disposition home or self-care (01) ==
PROVIDERS: Emergency Provider Emergency Medicine; PCP Nurse Practitioner Family; Visit Provider Emergency Medicine
DX: M16.11 Unilateral primary osteoarthritis, right hip (principal)
CPT/HCPCS: 73502; 99282